=== PATIENT | female | born 1955 | race Caucasian/White ===

== ENCOUNTER 2021-08-25 10:30 | Inpatient (IN) | payer MEDICARE, SELFPAY ==
[2021-08-25] VITALS (23 sets, daily range): BP systolic 123–148; BP diastolic 59–73; PULSE 62–75; RESP 18–35; TEMP 36.6–36.8; O2SAT 91–96; BMI 46.2
--- NOTE | ~2021-08-25 | XR_ITS ---
EXAMINATION: XR chest 2V DATE: 08/25/2021 11:11 INDICATION: Shortness of breath. TECHNIQUE: Frontal and lateral views of the chest were obtained. COMPARISON: PET/CT 07/13/2017 FINDINGS: There are airspace opacities in right lower lung zone. No pleural effusion or pneumothorax. Cardiomegaly is noted. There is a large hiatal hernia. There are changes of anterior fusion procedur e in cervical spine. IMPRESSION: 1. Airspace opacities in right lower lung zone, consistent with atelectasis versus pneumonia. 2. Cardiomegaly. 3. Large hiatal hernia. Reviewed, dictated and finalized at location A. IMPRESSION: 1. Airspace opacities in right lower lung zone, consistent with atelectasis ad rosalba pneumonia. 2. Cardiomegaly. 3. Large hiatal hernia.
--- NOTE | 2021-08-25 10:35 | ECG_ITS ---
Measurements Intervals [place] Rate: 69 P: 80 FL: 193 QRS: -2 QRSD: 105 T: 10 QT: 416 QTc: 446 Interpretive Statements SINUS RHYTHM BASELINE ARTIFACT BORDERLINE ECG NO PREVIOUS ECG AVAILABLE FOR COMPARISON Electronically Signed On 08-25-2021 14:37:20 CDT by Isaac Faulkner M.D.
--- NOTE | 2021-08-25 10:43 | ED.GENADULT ---
HPI - General Adult General Chief complaint: Shortness of Breath/Dyspnea Stated complaint: SOB x 4 days Source: RN notes reviewed History of Present Illness HPI narrative: Patient presents emergency room from home for shortness of breath. Patient states she been feeling short of breath for the past 4 days. States she has been having a cough this been nonproductive. Patient states she has a history of COPD she denies any fevers or chills, chest pain abdominal pain nausea vomiting or any other symptoms. Patient states that she smokes approximately half a pack of cigarettes a day Related Data Allergies Allergy/AdvReac Type Severity Reaction Status Date / Time duloxetine [From Cymbalta] AdvReac Unknown Verified 08/25/21 11:26 Review of Systems Review of Systems: Gen.: Denies fevers or chills ENT: Denies congestion Respiratory: See HPI CV: Denies chest pain or palpitations GI: Denies abdominal pain nausea, emesis or diarrhea Musculoskeletal: Denies back pain or muscle pain Neuro: Denies numbness, tingling, weakness or focal weakness Skin: Denies rash Except as documented, all other systems reviewed and negative [facility] Past Medical History Medical History (Updated 08/25/21 @ 13:28 by Lenard Mosley DO) COPD (chronic obstructive pulmonary disease) Social History Social History (Updated 08/25/21 @ 10:44 by Lenard Mosley DO) Smoking status: Current every day smoker Exam Narrative: APPEARANCE: No acute distress, nontoxic, resting in bed EYES: EOMI HEENT: Normocephalic, atraumatic, OMM RESPIRATORY: No respiratory distress wheezing thought the bilateral upper lung flowers with decreased breath sounds in the bases no rhonchi CARDIOVASCULAR: Regular rate and rhythm without murmurs rubs or gallops. ABDOMINAL: Soft, nontender, nondistended, no rebound or guarding MUSCULOSKELETAl: Moves all extremities. No clubbing, cyanosis or edema. NEURO: Awake and alert. Following commands, speech normal, no focal deficits SKIN:: Warm, dry. No rashes lesions or abrasions PSYCHIATRIC: Normal affect/mood, Course Course Emergency Course: Patient was walking pulse ox in ED with oxygen down to 88% Discussed with Dr. Wilson agrees with admission at this time Discussed with patient and family results of workup and diagnosis. Discussed need for admission. Patient and family understand and agree to current treatment plan Vital Signs Vital signs: Vital Signs Temperature 98.3 F 08/25/21 10:31 Pulse Rate 69 08/25/21 10:31 Respiratory Rate 35 H 08/25/21 10:31 Blood Pressure 148/69 H 08/25/21 10:31 Pulse Oximetry 94 08/25/21 10:31 Oxygen Delivery Room Air 08/25/21 10:31 Temperature 98.3 F 08/25/21 10:31 Pulse Rate 62 08/25/21 11:55 Respiratory Rate 18 08/25/21 11:30 Blood Pressure 123/59 L 08/25/21 11:30 Pulse Oximetry 96 08/25/21 11:30 Oxygen Delivery Room Air 08/25/21 10:36 Medical Decision Making Vital Signs Vital Signs: Vital Signs Temperature 98.3 F 08/25/21 10:31 Pulse Rate 69 08/25/21 10:31 Respiratory Rate 35 H 08/25/21 10:31 Blood Pressure 148/69 H 08/25/21 10:31 Pulse Oximetry 94 08/25/21 10:31 Oxygen Delivery Room Air 08/25/21 10:31 Temperature 98.3 F 08/25/21 10:31 Pulse Rate 62 08/25/21 11:55 Respiratory Rate 18 08/25/21 11:30 Blood Pressure 123/59 L 08/25/21 11:30 Pulse Oximetry 96 08/25/21 11:30 Oxygen Delivery Room Air 08/25/21 10:36 Lab Data Result diagrams: 08/25/21 10:45 08/25/21 10:45 Labs: Lab Results 08/25/21 08/25/21 08/25/21 Range/Units 10:45 10:45 10:45 WBC 14.1 H (4.5-10.0) K/mm3 RBC 3.86 L (4.2-5.4) M/mm3 Hgb 9.1 L (12.0-15.0) g/dL Hct 31.9 L (37.0-47.0) % MCV 82.6 (80-100) fl MCH 23.6 L (26-34) pg MCHC 28.5 L (32-36) g/dl RDW 17.2 H (11.5-14.5) % Plt Count 226 (150-375) k/mm3 MPV 11.6 H (7.4-10.4) fl Immature Gran %
[2021-08-25 10:54] LABS: Basophils Percent Auto 0.2 % (0.2-1.2); Eosinophils Percent Auto 0.1 % (0-4.4); Hematocrit 31.9 % (37.0-47.0); Hemoglobin 9.1 g/dL (12.0-15.0); Immature Granulocyte Absolute 0.13 K/mm3 (0.00-0.031); Immature Granulocyte Percent A 0.9 % (0-0.5); Lymphocytes Absolute Auto 0.83 K/mm3 (0.9-3.2); Lymphocytes Percent Auto 5.9 % (18.3-44.2); Mean Corpuscular HGB Conc 28.5 g/dl (32-36); Mean Corpuscular Hemoglobin 23.6 pg (26-34); Mean Corpuscular Volume 82.6 fl (80-100); Mean Platelet Volume 11.6 fl (7.4-10.4); Monocytes Absolute Auto 1.4 K/mm3 (0.1-0.6); Monocytes Percent Auto 9.6 % (2.6-8.5); Neutrophils Absolute Auto 11.8 K/mm3 (1.3-6.7); Neutrophils Percent Auto 83.3 % (45.5-73.1); Platelet Count Result 226 k/mm3 (150-375); Red Blood Count 3.86 M/mm3 (4.2-5.4); Red Cell Distribution Width 17.2 % (11.5-14.5); White Blood Count 14.1 K/mm3 (4.5-10.0)
[2021-08-25 11:05] LABS: Alanine Aminotransferase 15 U/L (6-35); Albumin Level 3.4 g/dL (3.5-5.1); Alkaline Phosphatase 94 U/L (38-126); Anion Gap 3 mmol/L (8-16); Aspartate Amino Transferase 18 U/L (14-36); Bilirubin,Total 0.3 mg/dL (0.2-1.3); Blood Urea Nitrogen 10 mg/dL (7-17); Calcium 7.7 mg/dL (8.4-10.2); Carbon Dioxide 21 mmol/L (22-30); Chloride 110 mmol/L (98-107); Estimated CRCL calculation 104 ml/min; Estimated Glomerular Filt Rate > 60; Glucose 128 mg/dL (65-110); Potassium 3.6 mmol/L (3.4-5.0); Sodium 134 mmol/L (137-145)
[2021-08-25 11:09] LABS: INR 1.2; Prothrombin Time 14.9 Seconds (11.1-14.7)
[2021-08-25 11:10] LABS: Anisocytosis 1+ (NORMAL); Hypochromasia 2+ (NORMAL); Platelet Estimate Adequate (Adequate)
[2021-08-25 11:11] LABS: Partial Thromboplastin Time 31.9 SECONDS (22.3-36.8)
[2021-08-25 11:32] LABS: SARS-CoV-2 RNA PCR Negative
[2021-08-25] MEDS: methylPREDNISolone SOD SUCC 125 MG VIAL IV PUSH (11:47)
[2021-08-25] MEDS: ALBUTEROL SULFATE NEB 2.5 MG/3 ML INH 5 MG INHALATION ×3 (11:56→21:03)
[2021-08-25] MEDS: IPRATROPIUM BR 0.02% INH SOLN 0.5 MG/2.5 ML VIAL INHALATION ×3 (11:57→21:04)
--- NOTE | 2021-08-25 12:57 | PC.NURSE ---
patient desats to 88% while walking in the home
[2021-08-25 13:02] LABS: Lactic Acid Reflex 1.1 mmol/L (0.7-2.0)
--- NOTE | 2021-08-25 13:32 | PM.IMHP ---
H&P: HPI History of Present Illness Date/Time: 08/25/21 13:32 Chief Complaint: Shortness of breath Narrative: Patient is a 66-year-old female with a past medical history of COPD who presented to the ED with complaints shortness of breath and a nonproductive cough over the last 4 days.Patient stated that she has had increased wheezes and shortness of breath. Patient also stated that she developed a different cough over the last 3 days. She does have sputum production however it is very light and states that it is no different than any other cough that she has had. Sputum does produce a yellow thick sputum she has also complained about having chills and she thinks fevers. She also said that her swelling in her bilateral lower extremities has been worse lately. She denies any nausea, vomiting, diarrhea, constipation, visual changes, dizziness. She also stated that she has been having some headaches over the last couple days but that usually is controlled. She also stated that her eating has been a little different but she only eats she has 2. She also stated that she has chest pain and abdominal pain however she contributes that is cough. [facility]. Patient is currently being admitted to the hospital service as an observation patient for pneumonia Review of Systems Review of Systems: All systems reviewed & are unremarkable except as noted in HPI and below PMFSH Past Medical History Medical History Anxiety and depression Bipolar 1 disorder Carpal tunnel syndrome COPD (chronic obstructive pulmonary disease) Hyperlipemia Hypertension Hypothyroidism Rheumatoid arthritis Surgical History Surgical History H/O thyroidectomy H/O: hysterectomy History of tonsillectomy History of total left knee replacement Family History Family History Mother Hypertension COPD (chronic obstructive pulmonary disease) Lung cancer Father Hypertension COPD (chronic obstructive pulmonary disease) Lung cancer Grandparent Cerebrovascular accident maternal grandmother Son Diabetes mellitus Social History Social History Social History: Patient lives by herself and has 3 rescue dogs at home. She has 1 son his name is Adam who will be her surrogate if she can not make her own decisions. Patient stated that she is a half a pack smoker a day and quit 4 days ago and has been smoking for 14 years. Patient wishes to be a full code at this time. 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 Gender identity (if verbalized by the patient): Female Sexual Orientation (if Verbalized by the Patient): Straight or Heterosexual Spiritual care concerns: No Agree to blood products: Yes Meds Home Medications and Allergies Home Medications Medication Instructions Recorded Confirmed Type albuterol sulfate 90 mcg/actuation 2 inh inhalation QID PRN Shortness 08/25/21 08/25/21 History aerosol inhaler Of Breath Or Wheezing alendronate 70 mg tablet 1 tablet PO WEEKLY 08/25/21 08/25/21 History amlodipine 5 mg tablet 5 mg PO DAILY 08/25/21 08/25/21 History atorvastatin 20 mg tablet 20 mg PO DAILY 08/25/21 08/25/21 History bupropion HCl 200 mg tablet,12 hr 200 mg PO BID 08/25/21 08/25/21 History sustained-release citalopram 20 mg tablet 20 mg PO DAILY 08/25/21 08/25/21 History duloxetine 60 mg capsule,delayed 60 mg PO DAILY 08/25/21 08/25/21 History r
--- NOTE | 2021-08-25 15:09 | ADMGEN ---
This patient, Alisha Arguello, was admitted to 3 Medical Room 346-01. Patient/family oriented to hospital policies and general routines including ID bracelet, bed and alarms, visiting hours, pain management, procedures, bathroom and other care routines, personal items, smoking policy, room service/diet, and visiting hours. Information on how to activate the Rapid Response Team has been discussed. Patient/Family are encouraged to report perceived risks to care and to ask questions if they do not understand what they are told or what they should do.
[2021-08-25] MEDS: TOPIRAMATE 100 MG TABLET PO ×2 (16:48→20:31)
[2021-08-25] MEDS: methylPREDNISolone SOD SUCC 125 MG VIAL 60 MG IV PUSH (20:30)
[2021-08-25] MEDS: PANTOPRAZOLE 40 MG TABLET PO (20:30)
[2021-08-25] MEDS: risperiDONE 1 MG TABLET PO (20:30)
[2021-08-25] MEDS: buPROPion HCL SR (12HR) 100 MG TABCR 200 MG PO (20:30)
[2021-08-25] MEDS: rOPINIRole HCL 1 MG TABLET PO (20:31)
[2021-08-26] VITALS (12 sets, daily range): BP systolic 139–157; BP diastolic 58–68; PULSE 70–92; RESP 20–24; TEMP 36.6–36.8; O2SAT 90–94
--- NOTE | 2021-08-26 | ECHO_ITS ---
Patient Info Name: Alisha Arguello Age: 66 years : 1955 Gender: Female Ht: 62 in Wt: 252 lbs BSA: 2.31 m2 HR: 73 bpm BP: 139 / 58 mmHg Heart Rhythm: Sinus Rhythm Exam Date: 08/26/2021 2:37 PM Exam Location: [facility] Patient Status: Inpatient Admit Date: 08/26/2021 Staff Ordering Physician: Chris Rios Move Coordinator: Alessandro Roach RDCS, RT Attending Provider: Rocío Wilson MD Referring Physician: Gabriel KAYE; Exam Type: CA echo dop color flow w con Study Info Indications R06.02 - Shortness of breath Complete two-dimensional, color flow and Doppler transthoracic echocardiogram is performed with contrast to opacify the left ventricle and to improve the deliniation of the left ventricle endocardial borders. Summary 1. Left ventricular chamber dimension is mildly enlarged. 2. Left ventricular systolic function is normal, estimated at 60-65%. 3. There is mildly increased left ventricular wall thickness. 4. Left ventricular septal wall motion is abnormal with septal motion related to bundle branch block. 5. The left ventricular diastolic function is grade I diastolic dysfunction. 6. There is borderline mild aortic valve stenosis with a peak velocity of 224.49 cm/s, mean gradient of 9 mmHg, and aortic valve area of 2.0 cm2. 7. There is mild aortic valve regurgitation. 8. There is mild aortic valve calcification. 9. The aortic valve is not well visualized. 10. There is trace tricuspid valve regurgitation. 11. Moderate pulmonary hypertension, estimated pulmonary arterial systolic pressure is 46 mmHg. Left Ventricle Left ventricular chamber dimension is mildly enlarged. Left ventricular systolic function is normal, estimated at 60-65%. There is mildly increased left ventricular wall thickness. Left ventricular septal wall motion is abnormal with septal motion related to bundle branch block. The left ventricular diastolic function is grade I diastolic dysfunction. Right Ventricle Right ventricular chamber dimension is normal. Right ventricular systolic function is normal. Left Atria Left atrial chamber dimension is mildly enlarged. Right Atria Right atrial chamber dimension is mildly enlarged. Aortic Valve The aortic valve is not well visualized. There is borderline mild aortic valve stenosis with a peak velocity of 224.49 cm/s, mean gradient of 9 mmHg, and aortic valve area of 2.0 cm2. There is mild aortic valve regurgitation. There is mild aortic valve calcification. Pulmonic Valve The pulmonic valve is not well visualized. Mitral Valve The mitral valve has normal leaflets. There is no mitral valve regurgitation. The mitral valve annulus is mildly calcified. Tricuspid Valve The tricuspid valve leaflets are normal. There is trace tricuspid valve regurgitation. Moderate pulmonary hypertension, estimated pulmonary arterial systolic pressure is 46 mmHg. Pericardium/Pleural The pericardium appears not well visualized. There is no pericardial effusion. Inferior Vena Cava Normal inferior vena cava with >50% collapse upon inspiration consistent with normal right atrial pressure, 5 mmHg. Aorta The aortic root size at the sinus of Valsalva is normal. There is mild aortic atherosclerosis. Left Ventricular Outflow Tract Name Value Normal LVOT 2D
--- NOTE | 2021-08-26 02:27 | PCRCNOTE ---
0200 UPD treatment not given on 08/26 due to pt being on sleep apnea study. Next available administration is 0800.
[2021-08-26 05:37] LABS: Basophils Percent Auto 0.1 % (0.2-1.2); Hematocrit 30.5 % (37.0-47.0); Hemoglobin 8.9 g/dL (12.0-15.0); Immature Granulocyte Absolute 0.07 K/mm3 (0.00-0.031); Immature Granulocyte Percent A 0.7 % (0-0.5); Lymphocytes Absolute Auto 0.68 K/mm3 (0.9-3.2); Lymphocytes Percent Auto 6.7 % (18.3-44.2); Mean Corpuscular HGB Conc 29.2 g/dl (32-36); Mean Corpuscular Hemoglobin 23.5 pg (26-34); Mean Corpuscular Volume 80.7 fl (80-100); Mean Platelet Volume 10.5 fl (7.4-10.4); Monocytes Absolute Auto 0.6 K/mm3 (0.1-0.6); Monocytes Percent Auto 6.3 % (2.6-8.5); Neutrophils Absolute Auto 8.7 K/mm3 (1.3-6.7); Neutrophils Percent Auto 86.2 % (45.5-73.1); Platelet Count Result 217 k/mm3 (150-375); Red Blood Count 3.78 M/mm3 (4.2-5.4); Red Cell Distribution Width 17.2 % (11.5-14.5); White Blood Count 10.1 K/mm3 (4.5-10.0)
[2021-08-26] MEDS: methylPREDNISolone SOD SUCC 125 MG VIAL 60 MG IV PUSH (05:41)
[2021-08-26] MEDS: LEVOTHYROXINE SODIUM 100 MCG TABLET 400 MCG PO (05:41)
[2021-08-26] MEDS: TOPIRAMATE 100 MG TABLET PO ×3 (05:42→20:30)
[2021-08-26 05:53] LABS: Alanine Aminotransferase 14 U/L (6-35); Albumin Level 3.3 g/dL (3.5-5.1); Alkaline Phosphatase 92 U/L (38-126); Anion Gap 5 mmol/L (8-16); Aspartate Amino Transferase 14 U/L (14-36); Bilirubin,Total 0.1 mg/dL (0.2-1.3); Blood Urea Nitrogen 13 mg/dL (7-17); Calcium 7.9 mg/dL (8.4-10.2); Carbon Dioxide 23 mmol/L (22-30); Chloride 113 mmol/L (98-107); Estimated CRCL calculation 111 ml/min; Estimated Glomerular Filt Rate > 60; Glucose 143 mg/dL (65-110); Potassium 3.5 mmol/L (3.4-5.0); Sodium 141 mmol/L (137-145)
[2021-08-26] MEDS: IPRATROPIUM BR 0.02% INH SOLN 0.5 MG/2.5 ML VIAL INHALATION ×3 (08:03→21:18)
[2021-08-26] MEDS: ALBUTEROL SULFATE NEB 2.5 MG/3 ML INH 5 MG INHALATION ×3 (08:03→21:18)
[2021-08-26 08:18] LABS: NT Pro B Type Natriuretic Pept 948 pg/mL (5-100)
[2021-08-26] MEDS: CITALOPRAM HYDROBROMIDE 20 MG TABLET PO (08:43)
[2021-08-26] MEDS: ATORVASTATIN 20 MG TABLET PO (08:43)
[2021-08-26] MEDS: PANTOPRAZOLE 40 MG TABLET PO ×2 (08:43→20:29)
[2021-08-26] MEDS: NICOTINE (*PBKC) 21 MG PATCH 1 PATCH TRANSDERM (08:43)
[2021-08-26] MEDS: amLODIPine BESYLATE 5 MG TABLET PO (08:43)
[2021-08-26] MEDS: METOPROLOL TARTRATE 25 MG TABLET PO (08:43)
[2021-08-26] MEDS: DULoxetine HCL 60 MG CAPSULE.DR PO (08:44)
[2021-08-26] MEDS: ENOXAPARIN 40 MG/0.4 ML SYRINGE SUB-Q (08:44)
[2021-08-26] MEDS: buPROPion HCL SR (12HR) 100 MG TABCR 200 MG PO ×2 (08:44→20:29)
[2021-08-26 08:48] LABS: Thyroid Stimulating Hormone Reflex < 0.015 uIU/mL (0.465-4.68)
--- NOTE | 2021-08-26 09:45 | P.PNIM_ITS ---
Progress Note: A&P Assessment and Plan (1) Community acquired pneumonia: Code(s): J18.9 - Pneumonia, unspecified organism Status: Acute Assessment and Plan: * Chest xray shows opacities in the right lower lung consistent with atelectasis or PNA * WBC Trending down, currently 10.1 * No fever noted * Continue ceftriaxone and azithromycin day 2 * Change to Augmentin and get one more dose of azithromycin * Sputum culture ordered * Blood cultures pending * Legionella and pneumococcal pending * Trend respiratory status (2) Acute exacerbation of chronic obstructive airways disease: Code(s): J44.1 - Chronic obstructive pulmonary disease with (acute) exacerbation Status: Acute Assessment and Plan: * Reports shortness of breath and increased wheezes * Chest x-ray indicates pneumonia * Looks to be in acute exacerbation for COPD at this time * Ceftriaxone and azithromycin on board * change IV steroids to PO prednisone * WBC currently trending down at 10.1 * Sputum culture ordered (3) CHF (congestive heart failure): Code(s): I50.9 - Heart failure, unspecified Status: Acute Assessment and Plan: * Don't think this is acute exacerbation * Seems to be a diastolic heart failure * Trend I&O * Daily weights * Trend urine output * Echo ordered * Lasix 40mg IV x 1 dose * BNP elevated at 948 (4) Hypothyroidism: Code(s): E03.9 - Hypothyroidism, unspecified Status: Acute Assessment and Plan: * Obtain a TSH with reflex * Continue home levothyroxine (5) Hypertension: Code(s): I10 - Essential (primary) hypertension Status: Acute Assessment and Plan: * Current blood pressure 157/68 * Continue home amlodipine 5 mg daily, metoprolol 25 mg daily * Trend blood pressure * Adjust therapy as indicated (6) Hyperlipemia: Code(s): E78.5 - Hyperlipidemia, unspecified Status: Acute Assessment and Plan: * Continue home atorvastatin 20 mg p.o. daily (7) Rheumatoid arthritis: Code(s): M06.9 - Rheumatoid arthritis, unspecified Status: Acute Assessment and Plan: * History of RA * Continue home medications Time Spent With Patient Time with patient: Greater than 35 minutes Subjective Date/time seen: 08/26/21 09:45 Interval history: 08/26/2145 patient stated that she is feeling pretty good today. Her cough is better and her breathing is better. She did state that she still getting really short of breath especially when she walks to the bathroom and back. She denies any chest pain, nausea, vomiting, diarrhea, constipation. She did state that she is feeling weak specially with short trips. Headache is better today as well. Still awaiting labs. White blood cell count did go down to 10.1. Patient appears better. Transition to oral Augmentin, and per ID pharmacist give one more dose of Azithromycin 08/25/21? 13:32 Patient is a 66-year-old female with a past medical history of COPD who presented to the ED with complaints shortness of breath and a nonproductive cough over the last 4 days.Patient stated that she has had increased wheezes and shortness of breath.? Patient also stated that she developed a different cough over the last 3 days.? She does have sputum production however it is very light an
--- NOTE | 2021-08-26 09:45 | PM.IMPN ---
Progress Note: A&P Assessment and Plan (1) Community acquired pneumonia: Code(s): J18.9 - Pneumonia, unspecified organism Status: Acute Assessment and Plan: Chest xray shows opacities in the right lower lung consistent with atelectasis or PNA WBC Trending down, currently 10.1 No fever noted Continue ceftriaxone and azithromycin day 2 Change to Augmentin and get one more dose of azithromycin Sputum culture ordered Blood cultures pending Legionella and pneumococcal pending Trend respiratory status (2) Acute exacerbation of chronic obstructive airways disease: Code(s): J44.1 - Chronic obstructive pulmonary disease with (acute) exacerbation Status: Acute Assessment and Plan: Reports shortness of breath and increased wheezes Chest x-ray indicates pneumonia Looks to be in acute exacerbation for COPD at this time Ceftriaxone and azithromycin on board change IV steroids to PO prednisone WBC currently trending down at 10.1 Sputum culture ordered (3) CHF (congestive heart failure): Code(s): I50.9 - Heart failure, unspecified Status: Acute Assessment and Plan: Don't think this is acute exacerbation Seems to be a diastolic heart failure Trend I&O Daily weights Trend urine output Echo ordered Lasix 40mg IV x 1 dose BNP elevated at 948 (4) Hypothyroidism: Code(s): E03.9 - Hypothyroidism, unspecified Status: Acute Assessment and Plan: Obtain a TSH with reflex Continue home levothyroxine (5) Hypertension: Code(s): I10 - Essential (primary) hypertension Status: Acute Assessment and Plan: Current blood pressure 157/68 Continue home amlodipine 5 mg daily, metoprolol 25 mg daily Trend blood pressure Adjust therapy as indicated (6) Hyperlipemia: Code(s): E78.5 - Hyperlipidemia, unspecified Status: Acute Assessment and Plan: Continue home atorvastatin 20 mg p.o. daily (7) Rheumatoid arthritis: Code(s): M06.9 - Rheumatoid arthritis, unspecified Status: Acute Assessment and Plan: History of RA Continue home medications Time Spent With Patient Time with patient: Greater than 35 minutes Subjective Date/time seen: 08/26/21 09:45 Interval history: 08/26/21 0945 patient stated that she is feeling pretty good today. Her cough is better and her breathing is better. She did state that she still getting really short of breath especially when she walks to the bathroom and back. She denies any chest pain, nausea, vomiting, diarrhea, constipation. She did state that she is feeling weak specially with short trips. Headache is better today as well. Still awaiting labs. White blood cell count did go down to 10.1. Patient appears better. Transition to oral Augmentin, and per ID pharmacist give one more dose of Azithromycin 08/25/21? 13:32 Patient is a 66-year-old female with a past medical history of COPD who presented to the ED with complaints shortness of breath and a nonproductive cough over the last 4 days.Patient stated that she has had increased wheezes and shortness of breath.? Patient also stated that she developed a different cough over the last 3 days.? She does have sputum production however it is very light and states that it is no different than any other cough that she has had.? Sputum does produce a yellow thick sputum she has also complained about having chills and she thinks fevers.? She also said that her swelling in her bilateral lower extremities has been worse lately.? She denies any nausea, vomiting, diarrhea, constipation, visual changes, dizziness.? She also stated that she has been having some headaches over the last couple days but that usually is controlled.? She also stated that her eating has been a little different but she only eats she has 2.? She also stated th
[2021-08-26 10:05] LABS: Free T4 Free Thyroxine Reflex 4.16 ng/dL (0.78-2.19)
[2021-08-26] MEDS: FUROSEMIDE INJ 40 MG/4 ML VIAL IV PUSH (12:48)
[2021-08-26] MEDS: PERFLUTREN LIPID MICROSPHERES 1.5 ML VIAL DILUTED TO 10 ML TOTAL VOLUME IV PUSH (14:38)
--- NOTE | 2021-08-26 14:38 | IVDEFINITY ---
Prior to administration of IV Definity the patient was educated on the risks and benefits of the imaging enhancing agent including potential adverse side effects. The patient verbalized understanding. Allergies were verified. No exclusion criteria were identified and at least one of the following inclusion criteria were met: 1) physician request, 2) patient technically difficult to image (per the [place] [employer] guidelines of two or more segments not discernable within the apical view), or 3) questionable left ventricular function. ?
[2021-08-26] MEDS: risperiDONE 1 MG TABLET PO (20:29)
[2021-08-26] MEDS: rOPINIRole HCL 1 MG TABLET PO (20:29)
[2021-08-27] VITALS (9 sets, daily range): BP systolic 144; BP diastolic 58; PULSE 75–85; RESP 20–24; TEMP 36.6; O2SAT 91–94
[2021-08-27] MEDS: ALBUTEROL SULFATE NEB 2.5 MG/3 ML INH 5 MG INHALATION ×3 (01:54→14:39)
[2021-08-27] MEDS: IPRATROPIUM BR 0.02% INH SOLN 0.5 MG/2.5 ML VIAL INHALATION ×3 (01:54→14:39)
[2021-08-27 05:30] LABS: Basophils Percent Auto 0.3 % (0.2-1.2); Eosinophils Percent Auto 0.1 % (0-4.4); Hematocrit 29.6 % (37.0-47.0); Hemoglobin 8.5 g/dL (12.0-15.0); Immature Granulocyte Absolute 0.05 K/mm3 (0.00-0.031); Immature Granulocyte Percent A 0.4 % (0-0.5); Lymphocytes Absolute Auto 2.26 K/mm3 (0.9-3.2); Lymphocytes Percent Auto 19.3 % (18.3-44.2); Mean Corpuscular HGB Conc 28.7 g/dl (32-36); Mean Corpuscular Hemoglobin 23.6 pg (26-34); Mean Corpuscular Volume 82.2 fl (80-100); Mean Platelet Volume 10.6 fl (7.4-10.4); Monocytes Absolute Auto 1.2 K/mm3 (0.1-0.6); Monocytes Percent Auto 10.2 % (2.6-8.5); Neutrophils Absolute Auto 8.2 K/mm3 (1.3-6.7); Neutrophils Percent Auto 69.7 % (45.5-73.1); Platelet Count Result 247 k/mm3 (150-375); Red Cell Distribution Width 17.2 % (11.5-14.5); White Blood Count 11.7 K/mm3 (4.5-10.0)
[2021-08-27] MEDS: LEVOTHYROXINE SODIUM 100 MCG TABLET 400 MCG PO (05:38)
[2021-08-27] MEDS: TOPIRAMATE 100 MG TABLET PO ×2 (05:38→13:13)
[2021-08-27 05:47] LABS: Alanine Aminotransferase 13 U/L (6-35); Albumin Level 2.8 g/dL (3.5-5.1); Alkaline Phosphatase 75 U/L (38-126); Anion Gap 3 mmol/L (8-16); Aspartate Amino Transferase 14 U/L (14-36); Bilirubin,Total 0.2 mg/dL (0.2-1.3); Blood Urea Nitrogen 21 mg/dL (7-17); Calcium 7.5 mg/dL (8.4-10.2); Carbon Dioxide 26 mmol/L (22-30); Chloride 111 mmol/L (98-107); Estimated CRCL calculation 82 ml/min; Estimated Glomerular Filt Rate > 60; Glucose 91 mg/dL (65-110); Magnesium 2.2 mg/dL (1.6-2.3); Potassium 3.1 mmol/L (3.4-5.0); Sodium 140 mmol/L (137-145)
[2021-08-27] MEDS: DULoxetine HCL 60 MG CAPSULE.DR PO (08:28)
[2021-08-27] MEDS: predniSONE 20 MG TABLET 40 MG PO (08:28)
[2021-08-27] MEDS: ATORVASTATIN 20 MG TABLET PO (08:28)
[2021-08-27] MEDS: METOPROLOL TARTRATE 25 MG TABLET PO (08:28)
[2021-08-27] MEDS: buPROPion HCL SR (12HR) 100 MG TABCR 200 MG PO (08:28)
[2021-08-27] MEDS: PANTOPRAZOLE 40 MG TABLET PO (08:28)
[2021-08-27] MEDS: CITALOPRAM HYDROBROMIDE 20 MG TABLET PO (08:29)
[2021-08-27] MEDS: NICOTINE (*PBKC) 21 MG PATCH 1 PATCH TRANSDERM (08:29)
[2021-08-27] MEDS: ENOXAPARIN 40 MG/0.4 ML SYRINGE SUB-Q (08:29)
[2021-08-27] MEDS: amLODIPine BESYLATE 5 MG TABLET PO (08:29)
--- NOTE | 2021-08-27 09:15 | P.DS_ITS ---
DS: Admitting Diagnosis Discharge Date 08/27/21914 Admitting Diagnosis PNA/COPD exacerbation DS: Discharge Diagnosis Discharge Diagnosis (1) Community acquired pneumonia: Code(s): J18.9 - Pneumonia, unspecified organism Status: Acute Assessment and Plan: * Chest xray shows opacities in the right lower lung consistent with atelectasis or PNA * WBC Trending down, currently 11.7 * No fever noted * Continue ceftriaxone and azithromycin day 3 * Change to Augmentin and get one more dose of azithromycin * Sputum culture continues to pend * Blood cultures NGTD * Legionella and pneumococcal pending * Trend respiratory status (2) Acute exacerbation of chronic obstructive airways disease: Code(s): J44.1 - Chronic obstructive pulmonary disease with (acute) exacerbation Status: Acute Assessment and Plan: * Reports shortness of breath and increased wheezes * Chest x-ray indicates pneumonia * Looks to be in acute exacerbation for COPD at this time * Changed to Augmentin for 5 days * Plus will get one more dose of IV azithromycin * change IV steroids to PO prednisone * WBC currently 11.7 * Sputum culture pending * Talked to the patient about needing a pulmonology consult for COPD medications, Spoke to Dr. Milton's office about appointment, unable to make appointment for the patient, patient instructed to call to make her own appointment (3) CHF (congestive heart failure): Code(s): I50.9 - Heart failure, unspecified Status: Acute Assessment and Plan: * Don't think this is acute exacerbation * Seems to be a diastolic heart failure * Trend I&O * Daily weights * Trend urine output * Echo ordered * Lasix 40mg IV x 1 dose * BNP elevated at 948 (4) Hypothyroidism: Code(s): E03.9 - Hypothyroidism, unspecified Status: Acute Assessment and Plan: * Obtain a TSH <0.015, T4 4.16 * Continue home levothyroxine (5) Hypertension: Code(s): I10 - Essential (primary) hypertension Status: Acute Assessment and Plan: * Current blood pressure 144/58 * Continue home amlodipine 5 mg daily, metoprolol 25 mg daily * Trend blood pressure * Adjust therapy as indicated (6) Hyperlipemia: Code(s): E78.5 - Hyperlipidemia, unspecified Status: Acute Assessment and Plan: * Continue home atorvastatin 20 mg p.o. daily (7) Rheumatoid arthritis: Code(s): M06.9 - Rheumatoid arthritis, unspecified Status: Acute Assessment and Plan: * History of RA * Continue home medications (8) Anemia: Code(s): D64.9 - Anemia, unspecified Status: Acute Assessment and Plan: * Iron studies show low iron * Ferrous sulfate added 325mg bid * Anemia related to iron deficient * she will need follow up labs probably in a week * Patient stated that she has not taken iron recently due to her physician leaving * Will have her follow up outpatient with Dr. Bullock DS: Summary Hospital Course Hospital Course: Patient is a 66-year-old female with a past medical history of anxiety and depression, bipolar, hyperlipidemia, hypertension, COPD who presented to the ED for shortness of breath x4 days. Patient also developed a cough over the last 3 days. She was having
--- NOTE | 2021-08-27 09:15 | PM.DS ---
DS: Admitting Diagnosis Discharge Date 08/27/2115 Admitting Diagnosis PNA/COPD exacerbation DS: Discharge Diagnosis Discharge Diagnosis (1) Community acquired pneumonia: Code(s): J18.9 - Pneumonia, unspecified organism Status: Acute Assessment and Plan: Chest xray shows opacities in the right lower lung consistent with atelectasis or PNA WBC Trending down, currently 11.7 No fever noted Continue ceftriaxone and azithromycin day 3 Change to Augmentin and get one more dose of azithromycin Sputum culture continues to pend Blood cultures NGTD Legionella and pneumococcal pending Trend respiratory status (2) Acute exacerbation of chronic obstructive airways disease: Code(s): J44.1 - Chronic obstructive pulmonary disease with (acute) exacerbation Status: Acute Assessment and Plan: Reports shortness of breath and increased wheezes Chest x-ray indicates pneumonia Looks to be in acute exacerbation for COPD at this time Changed to Augmentin for 5 days Plus will get one more dose of IV azithromycin change IV steroids to PO prednisone WBC currently 11.7 Sputum culture pending Talked to the patient about needing a pulmonology consult for COPD medications, Spoke to Dr. Milton's office about appointment, unable to make appointment for the patient, patient instructed to call to make her own appointment (3) CHF (congestive heart failure): Code(s): I50.9 - Heart failure, unspecified Status: Acute Assessment and Plan: Don't think this is acute exacerbation Seems to be a diastolic heart failure Trend I&O Daily weights Trend urine output Echo ordered Lasix 40mg IV x 1 dose BNP elevated at 948 (4) Hypothyroidism: Code(s): E03.9 - Hypothyroidism, unspecified Status: Acute Assessment and Plan: Obtain a TSH <0.015, T4 4.16 Continue home levothyroxine (5) Hypertension: Code(s): I10 - Essential (primary) hypertension Status: Acute Assessment and Plan: Current blood pressure 144/58 Continue home amlodipine 5 mg daily, metoprolol 25 mg daily Trend blood pressure Adjust therapy as indicated (6) Hyperlipemia: Code(s): E78.5 - Hyperlipidemia, unspecified Status: Acute Assessment and Plan: Continue home atorvastatin 20 mg p.o. daily (7) Rheumatoid arthritis: Code(s): M06.9 - Rheumatoid arthritis, unspecified Status: Acute Assessment and Plan: History of RA Continue home medications (8) Anemia: Code(s): D64.9 - Anemia, unspecified Status: Acute Assessment and Plan: Iron studies show low iron Ferrous sulfate added 325mg bid Anemia related to iron deficient she will need follow up labs probably in a week Patient stated that she has not taken iron recently due to her physician leaving Will have her follow up outpatient with Dr. Bullock DS: Summary Hospital Course Hospital Course: Patient is a 66-year-old female with a past medical history of anxiety and depression, bipolar, hyperlipidemia, hypertension, COPD who presented to the ED for shortness of breath x4 days. Patient also developed a cough over the last 3 days. She was having increased sputum and wheezes along with shortness of breath. Patient has been diagnosed with COPD however is currently just using albuterol inhaler. Chest x-ray did indicate opacities in the right lower lobe. Patient was started on IV ceftriaxone and azithromycin and was changed to p.o. Augmentin. Sputum culture was ordered and pending. Blood cultures are showing no growth to date. Legionella and pneumococcal or also continue to [place]. Patient was also started on IV steroids which have been converted to p.o. prednisone for COPD exacerbation. Echo was performed and showed an EF of 60-65% with grade 1 diastolic dysfunction. B
[2021-08-27 09:27] LABS: Lactate Dehydrogenase 390 U/L (313-618)
[2021-08-27 09:33] LABS: Iron < 10 ug/dL (37-170)
[2021-08-27 09:38] LABS: Transferrin 175 mg/dL (206-381)
[2021-08-27 10:36] LABS: Percent Iron Saturation < 4 % (20-50)
[2021-08-27 10:37] LABS: Folic Acid 6.6 ng/mL (2.76->20); Vitamin B12 > 1000.0 pg/mL (239-931)
[2021-08-27] MEDS: guaiFENesin 600 MG/DEXTROMETHORPHAN 30 MG SR TAB 12 HR 1 TAB PO (11:46)
[2021-08-27] MEDS: POTASSIUM CHLORIDE 20 MEQ TABLET 40 MEQ PO (11:46)
[2021-08-27] MEDS: AMOXICILLIN/CLAVULANATE K 875-125 MG TAB 1 TABLET PO (12:06)
[2021-08-27] MEDS: FERROUS SULFATE 324 MG TABLET PO (15:29)
[2021-08-27] MEDS: IRON SUCROSE COMPLEX 100 MG in SODIUM CHLORIDE 0.9% IV 50 ML 220 MG IVPB (15:39)
[2021-08-27 16:03] LABS: Legionella pneumophila Ag Ur Not Detected (Not Detected)
[2021-08-29 11:31] LABS: Pneumococcal Antigen Urine Not Detected (Not Detected)
== END 2021-08-27 16:30 | disposition home or self-care (01) | DRG 190 ==
LOC: ANHED 13:28 → ANH3MED 13:56
PROVIDERS: Admitting Provider Family Medicine; Emergency Provider Emergency Medicine; PCP Family Medicine Sports Medicine; Visit Provider Nurse Practitioner
DX: J44.0 Chronic obstructive pulmonary disease with (acute) lower respiratory infection (principal); J18.9 Pneumonia, unspecified organism; Z68.42 Body mass index [BMI] 45.0-49.9, adult; I50.30 Unspecified diastolic (congestive) heart failure; J44.1 Chronic obstructive pulmonary disease with (acute) exacerbation; I11.0 Hypertensive heart disease with heart failure; Z20.822 Contact with and (suspected) exposure to COVID-19; E03.9 Hypothyroidism, unspecified; E78.5 Hyperlipidemia, unspecified; M06.9 Rheumatoid arthritis, unspecified; D50.9 Iron deficiency anemia, unspecified; F17.210 Nicotine dependence, cigarettes, uncomplicated; F31.9 Bipolar disorder, unspecified; Z96.652 Presence of left artificial knee joint; Z90.710 Acquired absence of both cervix and uterus; E66.9 Obesity, unspecified
CPT/HCPCS: 36415; 71046; 80053; 82607; 82728; 82746; 83540; 83550; 83605; 83615; 83735; 83880; 84439; 84443; 84466; 85025; 85610; 85730; 87040; 87070; 87205; 87449; 87899; 93005; 94640; 94762; 96365; 96366; 96367; 96372; 96375; 96376; 99285; A9270; C8929; C9803; G0378; J0456; J0696; J1650; J1756; J1940; J2930; J7512; Q9957; U0003; U0005

== ENCOUNTER → 2021-09-18 09:53 | Outpatient (CLI) | payer MEDICARE, SELFPAY ==
--- NOTE | ~2021-09-18 | XR_ITS ---
XR sacrum coccyx min 2V DATE: 09/18/2021 10:35 INDICATION: Overactive bladder TECHNIQUE: AP, angled AP and lateral views of sacrum and coccyx COMPARISON: None FINDINGS: There is a right-sided battery pack with neurotransmitter lead through the upper right sacr al neural foramen. Osteopenia. The pubic symphysis and sacroiliac joints are intact. No pelvic fracture or bone destruction. There is mild bilateral hip osteoarthritis. There is severe degenerative disc disease and apophyseal joint degenerative change at the lower lumba r and lumbosacral spine. IMPRESSION: Severe degenerative change of lower lumbar spine Osteopenia Right lower back battery pack with right upper sacral neurotransmitter lead Reviewed, dictated and finalized at location A.
== END ==
PROVIDERS: PCP Family Medicine Sports Medicine; Visit Provider Nurse Practitioner Family
DX: N32.81 Overactive bladder (principal); M51.36 Other intervertebral disc degeneration, lumbar region; M85.88 Other specified disorders of bone density and structure, other site
CPT/HCPCS: 72220

== ENCOUNTER 2024-05-01 02:51 | Day surgery (SDC) | payer MEDICARE, SELFPAY ==
[2024-04-21 13:31] VITALS: BMI 46.5
--- NOTE | 2024-04-21 14:07 | PC.NURSE ---
Addendum entered by Odalys Wright RN 04/24/24 13:00: PATIENT CALLED AND REMINDED TO HOLD ASPIRIN 7 DAYS PRE-OP PER DR MCNULTY, SHE STATES OFFICE HAD INSTRUCTED HER TO HOLD IT. INSTR TO TAKE NO MORE ASPIRIN PRIOR TO SURGERY, SHE RELAYS UNDERSTANDING. Original Note: Report to the Outpatient Waiting Room, entrance under the green pavilion located off [facility], at time ___9:15AM____ on date ___05/01/24____. Planned Procedure Time: ___11:15AM .? Time changes happen often and if your time is changed the preop area will call you the afternoon before. - You and your visitor will be asked to self-screen and do not enter if you have any COVID symptoms. Please call surgeon if you need to reschedule. - A mask is optional within the hospital at this time. Patients may have clear liquids (water, carbonated beverages, clear teas, apple juice) until 3 hours prior to surgery (8:15AM) with a maximum of 20 ounces. - No food from midnight until time of surgery and no smoking, or chewing tobacco (or any form of nicotine). No chewing gum, candy or mints. Take only the following medications with a SIP of water on the morning of surgery: __AMLODIPINE, BUPROPION, CITALOPRAM, DULOXETINE, LEVOTHYROXINE, METOPROLOL, PREDNISONE. USE ALBUTEROL INHALER NEEDED. DO NOT STOP ANY OF YOUR OTHER PRESCRIPTION MEDICATIONS PRIOR TO SURGERY EXCEPT THE FOLLOWING Hold all vitamins and supplements for 3 days per anesthesiologist. Medications to discontinue per physician NONE Date to take last dose Please no make-up, nail senegalese, hairspray, perfume, deodorant, or body powder the day of surgery.? No jewelry (including any body piercings) or valuables the day of surgery, leave them at home.? Please take a shower or bath the night before, or the morning of, surgery with an antibacterial soap.? Wear comfortable, loose fitting clothing.? Children are encouraged to wear pajamas. - Jewelry must be removed prior to entering the operating room.? Rings and piercings that are not removed may be cut off. - The hospital will not accept responsibility for valuables.? - Please leave all valuables, including medications, at home the day of surgery. If you are going home after surgery, a licensed transit mixer driver must drive you home.? - NO public transportation without another adult if you receive anesthesia. - We recommend that an adult stay with you for 24 hours following discharge. - We also recommend that you do not drive, make important decision, drink alcoholic beverages, or take any drugs that were not prescribed by your health care provider for at least 24 hours after your discharge time. For Pediatric surgeries, we recommend two adults accompany the child home. Follow any additional instructions given to you from your surgeon. Telephone instructions given to ____PATIENT and asked if any additional questions and then verbalized understanding. Patient advised to call surgeon office or pre surgery nurse liaison [phone] if any additional questions.
--- NOTE | 2024-04-28 10:09 | PM.IMHP ---
H&P: HPI History of Present Illness Date/Time: 04/28/24 10:09 Chief Complaint: Fecal and urinary incontinence Narrative: Fecal and urinary incontinence. InterStim device in place. Battery is at low. Last placed in 2021. Here for removal and replacement of InterStim system Review of Systems Review of Systems: All systems reviewed & are unremarkable except as noted in HPI and below PMFSH Past Medical History Medical History Rheumatoid arthritis Carpal tunnel syndrome Anxiety and depression Bipolar 1 disorder Hyperlipemia Hypertension Hypothyroidism COPD (chronic obstructive pulmonary disease) Surgical History Surgical History History of total left knee replacement History of tonsillectomy H/O: hysterectomy H/O thyroidectomy Family History Family History Mother Hypertension COPD (chronic obstructive pulmonary disease) Lung cancer Father Hypertension COPD (chronic obstructive pulmonary disease) Lung cancer Grandparent Cerebrovascular accident maternal grandmother Son Diabetes mellitus Social History Social History Social History: Patient lives by herself and has 3 rescue dogs at home. She has 1 son his name is Adam who will be her surrogate if she can not make her own decisions. Patient stated that she is a half a pack smoker a day and quit 4 days ago and has been smoking for 14 years. Patient wishes to be a full code at this time. 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 Gender identity (if verbalized by the patient): Female Sexual Orientation (if Verbalized by the Patient): Straight or Heterosexual Spiritual care concerns: No Agree to blood products: Yes Meds Home Medications and Allergies Home Medications ?Medication ?Instructions ?Recorded ?Confirmed ?Type albuterol sulfate 90 mcg/actuation 2 inh inhalation QID PRN Shortness 08/25/21 04/21/24 History aerosol inhaler Of Breath Or Wheezing alendronate 70 mg tablet 1 tablet PO WEEKLY 08/25/21 04/21/24 History amlodipine 5 mg tablet 5 mg PO DAILY 08/25/21 04/21/24 History atorvastatin 20 mg tablet 20 mg PO DAILY 08/25/21 04/21/24 History bupropion HCl 200 mg tablet,12 hr 200 mg PO BID 08/25/21 04/21/24 History sustained-release citalopram 20 mg tablet 20 mg PO DAILY 08/25/21 04/21/24 History duloxetine 60 mg capsule,delayed 60 mg PO DAILY 08/25/21 04/21/24 History release etanercept 50 mg/mL (1 mL) 1 ea subcut WEEKLY 08/25/21 04/21/24 History subcutaneous pen injector (Enbrel SureClick) leflunomide 20 mg tablet 20 mg PO DAILY 08/25/21 04/21/24 History metoprolol tartrate 25 mg tablet 25 mg PO DAILY 08/25/21 04/21/24 History omeprazole 40 mg capsule,delayed 40 mg PO DAILY 08/25/21 04/21/24 History release risperidone 1 mg tablet 1 mg PO HS 08/25/21 04/21/24 History ropinirole 1 mg tablet 1 mg PO HS 08/25/21 04/21/24 History topiramate 100 mg tablet 100 mg PO TID 08/25/21 04/21/24 History dextromethorphan-guaifenesin 30 1 tab PO Q12HR #30 tabs 08/27/21 04/21/24 Rx mg-600 mg tablet extended [id number] hr (Mucinex DM) aspirin 81 mg tablet,delayed 81 mg PO DAILY 04/21/24 04/21/24 History release (Adult Aspirin Regimen) levothyroxine 150 mcg tablet 150 mcg PO QAM 04/21/24 04/21/24 History prednisone 5 mg tablet 5 mg PO DAILY 04/21/24 04/21/24 History Allergies Allergy/AdvReac Type Severity Reaction Status Date / Time montelukast Allergy Other Verified 04/21/24 13:21 Exam Narrative: No acute distress Alert orient x3 Assessment and Plan Assessment and plan (1) Urge incontinence: Code(s): N39.41 - Urge incontinence Status: Acute (2) Fecal incontinence not due to organic disease: Code(s): F98.1 - Encopresis not due to a substance or known physiological condition Status: Acute Plan Remove and replace InterStim system
--- NOTE | ~2024-05-01 | XR_ITS ---
EXAMINATION: XR sacrum coccyx min 2V DATE: 05/01/2024 12:19 INDICATION: Neurostimulator implant. TECHNIQUE: 3 views of the sacrum and coccyx were obtained. COMPARISON: Sacrum and coccyx radiographs 09/18/2021 FINDINGS: There is 7 mm anterolisthesis of L4 on L5. There is severe lumbar spondylosis. There is an electrode with tip in the right S3 neural foramen. IMPRESSION: 1. Electrode tip in the right S3 neural foramen. Reviewed, dictated and finalized at location A. NE EDUCATION MANAGER
--- NOTE | ~2024-05-01 | XR_ITS ---
INTRAOPERATIVE FLUOROSCOPY: CLINICAL HISTORY: 68 years old Female; REMOVAL AND REPLACEMENT INTERSTIM IMPLANT PROCEDURE COMMENTS: Limited intraoperative fluoroscopy of the spine was performed. CUMULATIVE DOSE: 99.5 mGy FLUOROSCOPY TIME: 92 seconds FINDINGS/IMPRESSION: Please refer to operative note for further details. Reviewed, dictated and finalized at location A. BORER
--- OUTSIDE RECORDS SUMMARY | 2024-05-01 02:54 | XMS_ITS | Continuity of Care Document ---
Author Organization [facility] Address [address] [place] [address] Phone Care Team Providers Care Cook [place] Name Role Phone Harris OD, Jeremias Unavailable [...] Diagnoses Date Provider Providers Copied on Encounter [facility], [address], [place], [place], [id number], [place] tel:[phone] SEC [facility] No Information 0-201 0 Harris OD Jeremias. [address] , [address], [place], [address], [place]. tel:[phone] [facility], [address] [place] [address] [address], [place], [place], [address], [place] tel:[phone] [facility] No Information Mar-2 5-200 9 Harris OD Jeremias. [facility] , [address], [place], [place], [facility], [place]. tel:[phone] Office/outpat ient Visit, Est [facility], [address] [place] [address] [address], [place], [place], [address], [place] tel:[phone] [facility] No Information Sep-1 0-200 8 Harris OD Jeremias. [address] [facility] , [address], [place], [place], [facility], [place]. tel:[phone] [facility], [address] [place] [address] [address], [place], [place], [address], [place] tel:[phone] [facility] No Information Mar-1 9-200 8 Harris OD Jeremias. [facility] , [address], [place], [place], [facility], [place]. tel:[phone] Referring Provider: Rajan Holman, [address] [place], [place] [address]ate Center [address], [place], [place], [facility]. tel:[phone] [facility], [address] [place] [address] [address], [place], [place], [id number], [place] tel:[phone] [facility] No Information Mar-0 5-200 8 Candelaria Tolentino. [facility] , [address], [place], [address], [place]. tel:[phone] [facility], [address] [place] [address] [address], [place], [place], [address], [place] tel:[phone] [facility] No Information Mar-0 4-200 8 Candelaria Tolentino. [address] [place], [place] [address]ate Center , [address], [place], [facility], [place]. tel:[phone] [facility], [address], [place], [place], [address], [place] tel:[phone] [facility] [place] No Information 8 Candelaria Tolentino. [address] [place], [place] [address]ate Center , [address], [place], [facility], [place]. tel:[phone] Referring Provider: Rajan Holman, [facility] [address], [place], [facility]. tel:[phone] [facility], [address], [place], [place], [address], [place] tel:[phone] [facility] [place] No Information 6200 7 Candelaria Tolentino. [address] [place], [place] [address]ate Center , [address], [place], [facility], [place]. tel:[phone] Referring Provider: Jeremias Holman, [facility] [address], [place], [facility]. tel:[phone] [facility], [address], [place], [place], [id number], [place] tel:[phone] [facility] No Information 8-200 7 Harris OD Jeremias. [address] [place], [place] [address]ate Rie Alexis, [address], [place], [facility], [place]. tel:[phone] Referring Provider: Rajan Holman, [facility] [address], [place], [facility]. tel:[phone] [facility], [address], [place], [place], [address], [place] tel:[phone] [facility] No Information 7200 7 Candelaria Tolentino. [facility] Rei Alexis, [address], [place], [facility], [place]. tel:[phone] Referring Provider: Jeremias Harris OD [place], [address] [place] [address] [address], [place], [address]. tel:[phone] [facility], [address] [place] [address] [address], [place], [place], [address], tel:[phone] [facility] No Information 0 9-200 7 Doisy Edward. [address] [place] [address] , [address], [place], [address], . tel:[phone] Referring Provider: Jeremias Holman, [address] [place] [address] [address], [place], [address]. tel:[phone] [facility], [address] [place] [address] [address], [place], [place], [address], tel:[phone] [facility] No Information 3-200 7 Harris OD Jeremias. [address] [place] [address] , [address], [place], [address], [place]. tel:[phone] Family History Family Member Type Diagnosis Age At Onset No Information Payers Payer name Insurance type Covered constitution party ID Authoriza tirocio(s) [place] [id number] Social History Type Description Quantity Date Captured [...]
--- OUTSIDE RECORDS SUMMARY | 2024-05-01 02:54 | XMS_ITS | Encounter Summary ---
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
--- OUTSIDE RECORDS SUMMARY | 2024-05-01 02:54 | XMS_ITS | Clinical Summary ---
Author Organization [facility] Address [address] [facility] [place] [address] Care Team Providers Care Coat Joiner Lockstitch Name Role Phone Unavailable Primary Care Provider Unavailabl e Source Comments [facility],non-owned Affiliates and Associated Physician Practices is amultiple site organization consisting of ambulatory clinics and hospital sitesin [place], [place], [place] and [place]. This disclosure is being madepursuant to the Care Everywhere program and may not contain all information available regarding this patient. Last updated 17.[employer] [facility] Allergies No known active allergies Medications * Be aware that medications may not be up to date on this document. Alwaysverify current medications with the patient. Medication Sig Dispensed Refills Start Date End Date Status topiramate (TOPAMAX) 100 MG tablet Take 100 mg by mouth 2 times daily. Active citalopram (CELEXA) 40 MG tablet Take 40 mg by mouth once daily. Active risperiDONE (RISPERDAL) 2 MG tablet Take 2 mg by mouth once daily. Active buPROPion SR 12hr (WELLBUTRIN SR) 200 MG tablet Take 200 mg by mouth 2 times daily. Active leflunomide (ARAVA) 20 MG tablet Take 20 mg by mouth once daily. Active diclofenac sodium (VOLTAREN) 75 MG tablet Take 75 mg by mouth once daily. Active esomeprazole (NEXIUM) 40 MG capsule Take 40 mg by mouth daily before breakfast. Active levothyroxine (LEVOXYL) 200 MCG tablet Take 200 mcg by mouth daily before breakfast. Active simvastatin (ZOCOR) 40 MG tablet Take 40 mg by mouth at bedtime. Active albuterol-ipratropiu m (COMBIVENT) 18-103 MCG/ACT inhaler Inhale 2 Puffs by mouth 4 times daily as needed. Active Abatacept (ORENCIA IV) 1,000 mg by Intravenous route as directed. 03/09/11 start first infusion and repeat in 2 weeks and then 4 weeks and then every 4 weeks Active oxybutynin CR 24hr (DITROPAN-XL) 10 MG tablet Take 10 mg by mouth 2 times daily. Active ibuprofen (ADVIL; MOTRIN) 100 MG/5ML SUSP suspensionIndication s:Rheumatoid Arthritis Take 200 mg by mouth every 6 hours as needed. Indications: Rheumatoid Arthritis Active TRAMADOL HCL ER PO Take 1 Tab by mouth as needed. Active predniSONE (DELTASONE) 10 MG tablet Take 10 mg by mouth once daily. Active Active Problems Problem Noted Date Diagnosed Date Rheumatoid arthritis 02/22/2012 Overview (01/13/2015): Immunizations Name Administration Dates Next Due INFLUENZA VACCINE, QUADR. (F LUZONE; FLULAVAL; FLUARIX; AFLURIA QUADRIVALENT; 6MO+), 0.5 ML (IIV4) 01/05/2020 Social History Tobacco Use Types Packs/Day Years Used Date Smoking Tobacco: Former Cigarettes Q uit: 02/22/2007 Smokeless Tobacco: Never Tobacco Cessation:Counseling Given: No Alcohol Use Standard Drinks/Week Comments No 0 (1 standard drink = 0.6 oz pur e alcohol) Sex and Gender Information Value Date Recorded Sex Assigned at Not on file Gender Identity Not on file Sexual Orientation Not on file Last Filed Vital Signs Vital Sign Reading Time Taken Comments Blood Pressure 121/56 11/14/2012 10:50 AM CDT Pulse 72 11/14/2012 10:50 AM CDT Temperature 36.8 C (98.3 F) 11/14/2012 10:50 AM CDT Respiratory Rate 18 11/14/2012 10:50 AM CDT Oxygen Saturation - - Inhaled Oxygen Concentration - - Weight 143.3 kg (316 lb) 05/23/2012 11:23 AM CDT Height 162.6 cm (5' 4 ) 05/23/2012 11:23 AM CDT Body Mass Index 54.24 05/23/2012 11:23 AM CDT Plan of Treatment Health Maintenance Due Date Last Done Comments BONE DENSITY TESTING 1955 COLOGUARD (AGES 45-75) - COLON CA SCREENING 1955 COLON MONITORING 1955 COLONOSCOPY - COLON CA SCREENING 1955 CT COLONOGRAPHY - COLON CA SCREENING 1955 Colorectal Cancer Screening 1955 FIT - COLON CA SCREENING 1955 FLEX SIG - COLON CA SCREENING 1955 MAMMOGRAM 1955 HEPATITIS C SCREENING 08/14/1973 DTAP/TDAP/TD VACCINES (1 - Tdap) 08/18/1974 PNEUMOCOCCAL VACCINE 50+ (1 of 1 - PCV) 08/18/2005 ZOSTER VACCINE (1 of 2) 08/18/2005 Respiratory Syncytial Virus (RSV) Vaccine Pt: or over 60 yrs (1 - Risk 60-74 years 1-dose series) 2015 COVID-19 VACCINE (1 - 2023- season) 2023 INFLUENZA VACCINE (#1) 2023 0, 11/28/2018, 12/14/2017, Additional history exists DEPRESSION SCREENING 03/08/2024 MEDICARE AWV CALENDAR YEAR 2024 HEPATITIS B VACCINE Aged Out No longe r eligible based on patient's age to complete this topic HIB VACCINE Aged Out No longer eligi ble based on patient's age to complete this topic HPV VACCINE Aged Out No longer eligi ble based on patient's age to complete this topic MENINGOCOCCAL (Group B) VACCINE Aged Out No longer eligible based on patient's age to complete this topic MENINGOCOCCAL VACCINE Aged Out No marci randy eligible based on patient's age to complete this topic Advance Directives Documents on File Type Date Recorded Patient Ceo And [employer] Founder Expl anation Adv Directive/Living Will/POA 06/20/2012 12:56 PM RECOVERY RX
--- OUTSIDE RECORDS SUMMARY | 2024-05-01 02:54 | XMS_ITS | Data Portability ---
Author Organization [facility] Address [address] [place] [address] Care Team Providers Care Lodge Attendant Name Role Phone ROTHMANANITRA Primary Care Provider [phone] Assessment Encounter Date Assessment Date Assessment LastModified by Organization Details LastModified Time 04/17/2019 04/17/[address] Almaraz every 5 years for colonoscopy; has mammogram ordered in 1 week, Sung also does EGD with esophageal dilation every year. Patient quit smoking but still has a little emphysema. [email or web address] Not available 04/27/2019 23:12:00 Plan of Treatment Reminders Order Date Submit Date Provider Last Modified By Organization Details Last Modified Time Details Appointments None recorded. Lab None recorded. Referral rheumatol ogist referral - Please call patient and schedule appt. Please send consult note after initial visit. Thank you 2019 [facility] Suzanne Zaman MD, [address] , [address], [address], 0 12:04:57 Procedures None recorded. Surgeries None recorded. Imaging MAMMO, diagnosti c, digital, bilateral 2019 020 [facility] (Mammography) , [address], [place], [address], 0 12:35:21 US, breast, bilateral 2019 020 [facility] (Mammography) , [address], [place], [address], 0 12:35:21 Medication Orders None recorded. Patient TargetsNo targets recorded. Patient Instructions Encounter Date Encounter Id Patient Instructions Last Modified By Organization Details Last Modified Time 04/17/2019 [id number] rheumatoid arthritis diet: care instructions [email or web address] Not available 04/27/2019 23:15:29 Rheumatoid Arthritis (RA): Care Instructions [email or web address] Not available 04/27/2019 23:15:29 Reason for Referral Cma Referral for Rheumatoid arthritis Please call patient and schedule appt. Please send consult note after initial visit. Thank you Referring Physician: Anitra Rothman, Family Medicine, Encounter Date: 04/17/2019 Problems No Known Problems Procedures Surgical History Date Name Laterality Status Provider Name and Address Organization Details Recorded Time 03/08/18 90 total hysterectomy completed JOSUE Poon [facility] 04/17/2019 11:47:44 total knee replacement completed JOSUE Poon [facility] 04/17/2019 11:46:29 Carpal tunnel surgery completed JOSUE Poon [facility] 04/17/2019 11:46:34 Carpal tunnel surgery completed JOSUE Poon [facility] 04/17/2019 11:46:34 Carpal tunnel surgery completed JOSUE Poon [facility] 04/17/2019 11:46:35 tonsillectomy completed JOSUE Poon [facility] 04/17/2019 11:46:41 Imaging Results None recorded. Procedure Notes None recorded. Medical Equipment None Reported. Allergies No known drug allergies Medications Name Sig Start Date Stop Date Status Note LastModified by Organization Details LastModified Time amoxicillin 500 mg capsule 11/05 completed Not Available Not Available Not Available oxybutynin chloride ER 15 mg tablet,exten ded release 24 hr Take 1 tablet twice a day by oral route. active Not Available Not Available No t Available atorvastatin 20 mg tablet Take 1 tablet every day by oral route. active Not Available Not Available No t Available ropinirole 1 mg tablet Take 1 tablet every day by oral route at bedtime. active Not Available Not Available No t Available citalopram 40 mg tablet Take 1 tablet every day by oral route. active Not Available Not Available No t Available prednisone 5 mg tablet Take 1 tablet every day by oral route. active Not Available Not Available No t Available acetaminophe n 300 mg-codeine 30 mg tablet active Not Available Not Available Not Available sulfamethoxa zole 800 mg-trimethop rim 160 mg tablet active Not Available Not Available Not Available omeprazole 40 mg capsule,melba yed release Take 1 capsule every day by oral route. active Not Available Not Available No t Available leflunomide 20 mg tablet Take 1 tablet every day by oral route. active Not Available Not Available No t Available risperidone 2 mg tablet Take 1 tablet every day by oral route at bedtime. 11/05 completed Not Available Not Available Not Available amlodipine 10 mg tablet Take 1 tablet every day by oral route. active Not Available Not Available No t Available levothyroxin e 200 mcg tablet Take 1 tablet twice a day by oral route. active Not Available Not Available No t Available methylpredni solone 4 mg tablets in a dose pack 11/05 completed Not Available Not Available Not Available albuterol sulfate HFA 90 mcg/actuatio n aerosol inhaler active Not Available Not Available Not Available topiramate 100 mg tablet Take 1 tablet 3 times a day by oral route. active Not Available Not Available No t Available risperidone 1 mg tablet active Not Available Not Available Not Available bupropion HCl SR 200 mg tablet,12 hr sustained-re lease Take 1 tablet twice a day by oral route. active Not Available Not Available No t Available duloxetine 60 mg capsule,melba yed release Take 1 capsule every day by oral route. active Not Available Not Available No t Available Enbrel SureClick 50 mg/mL (1 mL) subcutaneous pen injector active Not Available Not Available Not Available Vitals Date Recorded Body height Oxygen saturation Oxygen saturation in Arterial blood by Pulse oximetry Heart rate Body mass index (BMI) Body weight Systolic blood pressure Diastolic blood pressure Provider Name and Address Organization Details Last Updated DateTime 0 158.75 cm 97 % 97 % 64 /min 42.9 kg/m2 660892. 38 g 132 mm[Hg] 72 mm[Hg] Juana Smith MA [facility] 0 11:50:09 Social History Question Answer Notes LastModified by Organizat ion Details LastModified Time Tobacco Smoking Status Former Smoker Juana Smith MA null, [facility] 04/17/2019 11:44:42 Do You Have An Advance Directive? Yes Medical Will And POA Information not available 04/17/2019 What Is Your Level Of Alcohol Consumption? None Information not available 04/17/2019 What Is Your Level Of Caffeine Consumption? Moderate Information not available 04/17/2019 How Much Tobacco Do You Chew? None Information not available 04/17/2019 Are You Currently Employed? No Information not available 04/17/2019 What Type Of Diet Are You Following? REGULAR Information not available 04/17/2019 Which Illicit Or Recreational Drugs Have You Used? None Information not available 04/17/2019 Do You Or Have You Ever Used E-cigarettes Or Vape? Never Used Electronic Cigarettes Information not available 04/17/2019 Education 2 Year College Informatio n not available 04/17/2019 Hard Of Hearing Or Deaf In One Or Both Ears? No Information not available 04/17/2019 Legally Blind In One Or Both Eyes? No Information not available 04/17/2019 Live Alone Or With Others? With Others Information not available 04/17/2019 What Was The Date Of Your Most Recent Tobacco Screening? 11/06/2019 Information not available 11/06/2019 How Many Children Do You Have? 1 Information not available 04/17/2019 Smoke Alarm In Home Yes Information not available 04/17/2019 At What Age Did You Start Smoking Tobacco? 15 Information not available 04/17/2019 Are You Passively Exposed To Smoke? Yes Information not available 04/17/2019 Do You Or Have You Ever Used Smokeless Tobacco? Never Used Smokeless Tobacco Information not available 04/17/2019 How Much Tobacco Do You Smoke? No Information not available 04/17/2019 General Stress Level Low Information not available 04/17/2019 On What Date Was Tobacco Cessation Counseling Provided? 04/17/2019 Information not available 04/17/2019 How Many Years Have You Smoked Tobacco? 30 Information not available 04/17/2019 Sex: Unknown Functional Status Question Answer Note LastModified by Organizat ion Details LastModified Time Are you able to care for yourself? Yes Information not available 04/17/2019 What is your exercise level? Occasional Information not available 04/17/2019 Mental Status None recorded. Family History Relationship Description Onset Age of this Age Resolved Age Notes LastModified by Organization Details LastModified Time Father Family history of malignant neoplasm [email or web address] Not available 04/17 11:44:29 Mother Pulmonary emphysema [email or web address] Not available 04/17 11:44:37 Medical History Condition Response Coronary Artery Disease N Other Y Atrial Fibrillation N High Blood Pressure N Thyroid Problems Y Kidney or Bladder Problems N GI Problems N Depression N COPD Y Blood Clots N Eating Disorder N Skin Problems N Anemia N Heart Attack (CO) N Diabetes N Anxiety Disorder N Muscle, Joint, or Bone Problems N Seizures/Epilepsy N Acid Reflux (GERD) Y Cancer N Stroke N Asthma N Allergies Y ADHD N Substance Abuse N High Cholesterol Y Hepatitis N Liver Disease N Schizophrenia N Headaches N Osteoporosis N Heart Failure Y Gynecological History Statement/Question Response Date of Last Pap Smear Age at Menarche 12 Current Control Method Hysterectom y Date of Last Mammogram Age at First Child 17 Obstetrics History GPAL:G 1 P 1 0 0 1 Type Value Multiple Births 0 Full Term 1 Induced 0 Spontaneous 0 Premature 0 Living 1 Ectopics 0 Total 1 Immunizations Vaccine Type Date Status Note Provider Nam e and Address Organization Details Recorded Time influenza, unspecified formulation 12/06/2018 completed Juana Smith MA [facility], [place] [facility] 04/17/2019 11:49:45 Past Encounters Encounter ID Performer Location Encounter Start Date Encounter Closed Date Diagnosis/Indication Diagnosis SNOMED-CT Code Diagnosis ICD10 Code Diagnosis Note [id number] Anitra Rothman MD [facility] [address] [place] [address] 04/17/2019 11:31:59 04/28/2019 09:32:12 Rheumatoid arthritis 64085486 M06.9 enbrel shots weekly, Depression screening 171 026939 Z13.31 patient does not appear to be significan tly depressed. 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 patient denies taking hormone replacemen t therapy Health Concerns Section Related Observation LastModified by Organization Detai ls LastModified Time None Recorded Concern Status LastModified by Organization Details LastModified Time None Recorded Advance Directives Directive Y: Medical Will and POA Payers Encounter Date Sequence Insurance Name Policy Number Policy Church Covered Member ID Church Member ID Guarantor Name 04/17/2019 1 [employer] (MEDICARE REPLACEMENT HMO) [id number] Alisha Arguello [id number] Alisha Arguello 11/06/2019 1 [employer] - [employer] (MEDICARE REPLACEMENT/A DVANTAGE - HMO) [id number] Alisha Arguello [id number] Alisha Arguello Notes Date Note Type Note Provider Name and Address Organization Details Recorded Time 04/17/2019 text/html Pt. states she i s here to establish care and needs a referral Anitra Rothman MD Attn: [address] [place], [address], [facility] 04/27/2019 23:16:21 11/06/2019 text/html Breast PainReported bypatient.Location :bilateral Onset/Timin-4 weeks Duration:intermitt ent Quality:sharp; stabbing Severity:moderate Context:[place] radha Modifying Factors:touch; exercise; pressure Associated Symptoms:no fever; no chills; no nipple discharge; no breast swelling; no arm pain; no arm swelling; no chest pain; no malaise; facial infection treated with antibiotics; denies infections on hands or arms or abdominal wal. Anitra Rothman MD Attn: [address] [place], [address], [facility] 11/06/2019 23:54:55 OBGyn Episode Ob Episode Information Episode Created Date Number of Fetuses Patient Bloodtype Patient rh Status Prepregnancy Weight lbs Domestic Partner Domestic Partner Phone Father Name Registered Physical Therapist Status 04/17/19 20 1 CLOSED Fetus Data First Name Last Name Admitted to NICU Weight (g) Sex Living Outcome Pediatric Complications Fetus ID Race Codes Race Delivery Type [id number] Memo Calculation Initial Memo Date Initial Exam Date Initial Exam Provider Initial Ultrasound Date Last Menstrual Period Date Ultra Sound Weeks Gestation 0 Eighteen To Twenty Week Memo Update Ultra Sound Date Fundal Height At Umbil Quickening Date Ultra Sound Latest Weeks Gestation Final Memo Confirmed By Final Memo Confirmed Date Final Memo Date Ultra Sound Latest Days Gestation 0 0 Menstrual History Last Menstrual Date Menses Monthly On Bcp Conception Prior Menses Frequency Hcg Plus Date Menarche Onset Age Delivery Information Delivery Date Delivery Type Labor Anesthesia Weeks Gestation Incision Type Labor Labor Length Hrs Delivered By Post Complications Tubal Sterilization Discharge Date Comments 3 Discharge Information Feeding Method Contraceptive Method Maternal HG B and HCT Levels
--- OUTSIDE RECORDS SUMMARY | 2024-05-01 02:54 | XMS_ITS | Encounter Summary ---
Author Organization [facility] Address [address] [place] [address] Phone Care Team Providers Care Mixer Diamond Powder Name Role Phone Sarmad Bowden Primary Care Provider [phone] Cy Mckinnon DO Unavailable [phone] Mirna Rider MD Primary Care Provider [phone] Anitra Rothman MD Primary Care Provider [phone] Justen Milton MD Primary Care Provider [phone] Herve Wilson MD Primary Care Provider Encounter Details Date Type Department Care Team (Late st Contact Info) Description 06/18/2017 Orders Only [facility] ProviderRusty MD [address] [place] [address] Social History Tobacco Use Types Packs/Day Years Used Date Smoking Tobacco: Former Smokeless Tobacco: Never Comments:Smoking History Pac ks/day: 1 Packs Alcohol Use Standard Drinks/Week Comments No 0 (1 standard drink = 0.6 oz pur e alcohol) Comments Unknown Sex and Gender Information Value Date Recorded Sex Assigned at Not on file 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 us Historical Provider LAB BLOOD ORDERABLES Isadora l Result documented in this encounter Visit Diagnoses Not on filedocumented in this encounter Care Teams Mixer Diamond Powder Relationship Specialty Start Date End Date F[place]ola Bowden MD [address] [address] PCP - General 06/05/16 12/15/17 Mirna Rider MD [facility] [place] [address] PCP - General 12/16/17 04/23/19 Anitra Rothman MD [address] [place] [address] [place] [address] PCP - General 04/24/19 03/24/20 Justen Milton MD [address] [place] [address] PCP - General 03/25/20 10/07/23 Herve Wilson MD [address] [place] [address] PCP - General Family Medicine 10/08/23 Cy Mckinnon DO [address] [place] [address] Medical Oncologist/Measurer Hematology and Oncology 10/05/17 documented as of this encounter
--- OUTSIDE RECORDS SUMMARY | 2024-05-01 02:54 | XMS_ITS | Clinical Summary ---
Author Organization [facility] Address [address] [place] [address] Care Team Providers Care Bog Cutter Name Role Phone Cy Mckinnon DO Unavailable [phone] Herve Wilson MD Primary Care Provider [phone] Allergies Active Allergy Reactions Criticality Noted Date Comments Cephalexin Unknown 08/10/2017 Yeast infection Lisinopril Other (See comments) Low 08/10/2017 Montelukast Other (See comments),Unknown Low [address] (CYMBALTA) 60 mg capsule take 1 capsule by oral route every day 0 0 4 Active OXcarbazepine (TRILEPTAL) 300 mg tablet take 1 tablet by oral route 3 times every day 0 0 5 Active rOPINIRole (REQUIP) 1 mg tablet take 1 tablet by oral route every day 0 0 5 Active topiramate (TOPAMAX) 100 mg tablet take 1 Tablet (100MG) by oral route 3 times every day [address] (NexIUM) 40 mg capsule Take 1 capsule (40 mg total) by mouth daily before breakfast Active atorvastatin (LIPITOR) 20 mg tablet Take 1 tablet (20 mg total) by mouth daily Active albuterol HFA (PROVENTIL HFA,VENTOLIN HFA,PROAIR HFA) 90 mcg/actuation inhaler Inhale 2 puffs every 6 (six) hours as needed Active metoprolol tartrate (LOPRESSOR) 25 mg immediate release tablet Take 1 tablet (25 mg total) by mouth daily 2 Active buPROPion SR (WELLBUTRIN SR) 200 mg 12 hr tablet Take 1 tablet (200 mg total) by mouth 2 (two) times a day 2 Active citalopram (CeleXA) 20 mg tablet Take 1 tablet (20 mg total) by mouth daily 2 Active risperiDONE (RisperDAL) 1 mg tablet Take 1 tablet (1 mg total) by mouth nightly 2 Active amLODIPine (NORVASC) 5 mg tablet Take 1 tablet (5 mg total) by mouth daily 2 Active meloxicam (MOBIC) 15 mg tablet Take 1 tablet (15 mg total) by mouth daily 3 Active levothyroxine (SYNTHROID) 150 mcg tablet Take 1 tablet (150 mcg total) by mouth daily 4 Active alendronate (FOSAMAX) 70 mg tablet TAKE 1 TABLET BY MOUTH ONE TIME PER WEEK 12 tablet 4 Active leflunomide (ARAVA) 20 mg tablet TAKE 1 TABLET BY MOUTH EVERY DAY 90 tablet 4 Active etanercept (EnbreL SureClick) 50 mg/mL (1 mL) pen injector INJECT 1 PEN UNDER THE SKIN EVERY 7 DAYS. 4 mL 3 4 Active predniSONE (DELTASONE) 5 mg tablet TAKE 1 TABLET BY MOUTH EVERY DAY 30 tablet 5 Active Active Problems Problem Noted Date Diagnosed Date Angina at rest 03/06/2024 Aortic insufficiency 03/06/2024 Depressive disorder 03/06/2024 Hypertension 03/06/2024 Hypoxemia 03/06/2024 Overview (03/06/2024): nocturnal Obstructive sleep apnea syndrome 03/06/2024 Obesity 03/06/2024 Bipolar II disorder (CMS/HCC) 03/06/2024 Restless legs syndrome 03/06/2024 Long-term use of high-risk medication 10/08/2023 Assessment & Plan (10/08/2023 11:08 AM CDT): Long-term use of high-risk medication requiring regular monitoring. Labs ordered, no s/s of med tox or infection. Encouraged to work with PCP to make sure all recommended cancer screens and vaccinations are complete. Avoid live-vaccines unless reviewed with conveyor line battery charger first. Osteopenia 10/08/2023 Assessment & Plan (10/08/2023 11:08 AM CDT): On fosamax since 2020. Due for repeat DEXA. Will do at [facility]. You need 1200mg calcium daily between supplements and food (preferably in food). Every cup of milk and ounce of cheese contains 200mg calcium and a cup of yogurt or most nut milks may contain 300mg calcium. Most multivitamins contain up to 500mg calcium and supplements may contain from 200mg to 500mg calcium. Pay attention to elemental calcium on the label and to the number of pills a serving represents. Try not to take more than 500mg elemental calcium in supplements at one time and drink with full 16 ounces of water to prevent kidney stones and stress on the heart. Walking at least 3 times a week for 30 minutes helps with bone density health in addition to the heart and brain benefits. Moderate persistent asthma 06/10/2023 Smoker 04/07/2023 Sensory urge incontinence 10/30/2021 Overview (10/30/2021): Added automatically from request for surgery [id number] Mechanical complication of e lectrode lead of implanted electronic neurostimulator of peripheral nerve 10/30/2021 Overview (10/30/2021): Added automatically from request for surgery [id number] Stress incontinence 07/04/2020 Overview (07/04/2020): Added automatically from request for surgery [id number] Primary nocturnal enuresis 07/04/2020 Overview (07/04/2020): Added automatically from request for surgery [id number] Dysphagia 03/27/2020 Overview (03/27/2020): Added automatically from request for surgery [id number] Special screening for malignant neoplasms, colon 03/27/2020 Overview (03/27/2020): Added automatically from request for surgery [id number] Anemia 02/22/2019 Overview (03/06/2024): Problems with anemia when Rheumatoid Arthritis is more active Melisa Titus 02.22.2019 Pain 02/22/2019 Overview (03/06/2024): Last Assessment & Plan: Pain in in right wrist and left ankle Melisa Titus 02.22.2019 Iron deficiency anemia 10/01/2017 Iron deficiency anemia 08/10/2017 BMI 40.0-44.9, adult 12/29/2016 Drug indicated 11/26/2014 Overview (06/12/2016): High risk medications (not anticoagulants) long-term use Diverticulitis of intestine 07/22/2013 Overview (06/12/2016): Diverticulitis Hyperlipidemia 07/22/2013 Overview (06/12/2016): Hyperlipidemia LDL goal < 100 Chronic obstructive pulmonary disease 07/22/2013 Overview (06/12/2016): COPD (chronic obstructive pulmonary disease) Hypothyroidism 07/22/2013 Overview (06/12/2016): Hypothyroid Gastric ulcer 07/22/2013 Overview (06/12/2016): Gastric ulcer Overactive bladder 06/14/2012 Overview (06/12/2016): OAB (overactive bladder) Restless legs syndrome 06/14/2012 Overview (06/12/2016): RLS (restless legs syndrome) Rheumatoid arthritis 06/14/2012 Overview (06/12/2016): Rheumatoid arthritis Assessment & Plan (10/08/2023 11:08 AM CDT): Stable on simponi, continue same. Follow up in 4 months and prn. Gastroesophageal reflux disease 06/14/2012 Overview (06/12/2016): GERD (gastroesophageal reflux disease) Bipolar I disorder 06/14/2012 Overview (06/12/2016): Bipolar 1 disorder Adiposity 06/14/2012 Overview (06/12/2016): Obesity Rheumatoid arthritis 02/22/2012 Overview (03/06/2024): Encounters Date Type Department Care Team Description 02/18/2024 Telephone [facility] [address] [place] [address] Jeronimo Negrete RPh 02/17/2024 Telephone [facility] at [facility] [address] [place] [address] Suzanne Zaman MD from Last 3 Months Immunizations Immunization Administration Dates Next Due Flucelvax Influenza Quad 01/16/2017 Influenza, Quadrivalent, Kait l Culture-based MDCK, Preservative Free, Antibiotic Free, Intramuscular 12/16/2017 Influenza, Quadrivalent, Hig h Dose, Preservative Free, Intrr 01/16/2022,01/17/2021 Influenza, Quadrivalent, Spl it, Intramuscular 01/17/2017 Influenza, Quadrivalent, Spl it, Preservative Free, Intramuscular 01/05/2020,11/28/2018 Influenza, Trivalent, IM (MDV) 12/25/2014,2013,01/11/2013 Influenza, Trivalent, Preser vative Free, Intramuscular 12/31/2015 Influenza, Trivalent, Split, Preservative Free, Intradermal 12/05/2013 Influenza, Unspecified 12/06/2018,2017,01/17/2017,12/31 Pneumococcal Conjugate PCV 13 01/16/2022 Pneumococcal Polysaccharide PPV23 03/18/2012 ZOSTER Recombinant 03/24/2020,01/05/2020 Surgical History Surgery Date Site/Laterality Comments TOTAL KNEE ARTHROPLASTY left TKR BLADDER SURGERY bladder sling OTHER SURGICAL HISTORY C spine surgery OTHER SURGICAL HISTORY bilat CTS release OTHER SURGICAL HISTORY thyroid nodule removal HYSTERECTOMY Hysterectomy TONSILLECTOMY tonsillectomy CARPAL TUNNEL RELEASE Bilateral Medical History Medical History Date Comments Gastric ulcer 07/22/2013 Gastric ulcer Chronic obstructive pulmonar y disease (HCC) 07/22/2013 COPD (chronic obstructive pu lmonary disease) Restless legs syndrome 06/14/2012 RLS (rest less legs syndrome) Diverticulitis of intestine 07/22/2013 Dive rticulitis Bipolar I disorder ([facility]) 06/14/2012 Bipolar 1 disorder Rheumatoid arthritis ([facility]) Hypothyroidism Hyperlipidemia HTN (hypertension) GERD (gastroesophageal reflux disease) Esophageal stenosis Osteoporosis Neuropathy ([facility]) Heart valve regurgitation CHF (congestive heart failur e) ([facility]) ([facility]) history Bipolar 1 disorder ([facility]) Hiatal hernia Peptic ulcer disease Family History Medical History Relation Name Comments Colon cancer Father 2 Cancer -colon; Cause of : Cancer -colon Heart attack Maternal Grandmother 2 CO; C ause of : CO COPD Mother 2 COPD; Cause of : COPD Relation Name Status Comments Father 1 (Age 67) Father 2 Maternal Grandmother 1 Alive (Age 90) Maternal Grandmother 2 Mother 1 (Age 67) Mother 2 Social History Tobacco Use Types Packs/Day Years Used Date Smoking Tobacco: Every Day Cigarettes 0.8 30 Started: 02/1977; Last attempted to quit: 02/2007 Smokeless Tobacco: Never Tobacco Cessation:Ready to Q uit: Not Asked; Counseling Given: Not Answered Comments:Smoking History Packs/day: 1 Packs Alcohol Use Standard Drinks/Week Comments No 0 (1 standard drink = 0.6 oz pur e alcohol) AUDIT-C Answer Date Recorded Q1: How often do you have a drink containing alc ohol? Never 01/16/2022 Average Number of Drinks Not on file 022 Q3: How often do you have si x or more drinks on one occasion? 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 Not on file Not on file Not on file Obstetrics History Last Filed Vital Signs Vital Sign Reading Time Taken Comments Blood Pressure 130/80 10/08/2023 9:39 AM CDT Pulse 58 10/08/2023 9:39 AM CDT Temperature 37 C (98.6 F) 10/08/2023 9:39 AM CDT Respiratory Rate 20 10/08/2023 9:39 AM CDT Oxygen Saturation 95% 10/08/2023 9:39 AM CDT Inhaled Oxygen Concentration - - Weight 117 kg (258 lb) 10/08/2023 9:39 AM CDT Height 160 cm (5' 3 ) 10/08/2023 9:39 AM CDT Body Mass Index 45.7 10/08/2023 9:39 AM CDT Plan of Treatment Health Maintenance Due Date Last Done Comments Depression Screening 1955 Hepatitis C Screening 1955 DTaP/Tdap/Td Vaccine (1 - Tdap) 08/18/1966 Hepatitis B Screening 08/18/1973 Lung Cancer Screening 08/18/2005 Breast Cancer Screening-Mammogram 04/24/2020 04/24/2019, 12/09/2016, 11/27/2015, Additional history exists Well Visit 65+ 08/18/2020 Osteoporosis Screening-Bone Density Scan 04/05/2022 04/05/2020 Fall Risk Assessment 12/02/2022 12/02/2021 Influenza Vaccine (#1) 2023 2, 01/17/2021, 01/05/2020, Additional history exists Pneumococcal vaccine 65+ (3 of 3 - PCV20 or PCV21) 01/16/2027 01/16/2022, 03/18/2012 Colon Cancer Screening-Colonoscopy 04/12/2030 04/12/2020 Zoster Vaccine Completed 03/24/2020, 01/05/2020 Colon Cancer Screening-CT Colonography Discontinued 04/12/2020 Colon Cancer Screening-DNA Stool Discontinued 04/12/19 Colon Cancer Screening-FIT Discontinued 04/12/2020 Colon Cancer Screening-Sigmoidoscopy Discontinued 04/12/2020 Medical Devices Implanted Type Area Estate And Trust Tax Principal Device Identifier Shelf Expiration Date Model / Serial / Lot Medtronic Neuro 3058 Interstim Ii 2inx1.7in 4 Electrode Nursing Home Administrator Sacral Nerve - [id number] - [id number] Implanted:Qty: 1 on 07/23/2020 by Husam Morales MD at [facility] Neurostimulator Right: Buttocks Medtronic Inc 07/03/2021 [id number] / [id number] / Description:Sub Q upper righ t buttocks [employer] [id number] Interstim 28cm Quadripolar Mri Lead Laying And Gluing Machine Operator Neurostimulator - Sn/A - [id number] Implanted:Qty: 1 on 07/23/2020 by Husam Morales MD at [facility] Neurostimulator Right: Lumbar-Sac ral Spine Medtronic Inc 10/22/2021 [id number] / N/A / [id number] Description:Right Sacral-3 F oramin Medtronic Inc Generator Neurostimulator Bowel Bladder Recharge Free Interstim X [id number] - [id number] - [id number] Implanted:Qty: 1 on 12/02/2021 by Husam Morales MD at [facility] N/A: Buttocks Medtronic Inc 04/21/2023 [id number] / [id number] / Medtronic Inc Interstim 28cm Quadripolar Mri Lead Laying And Gluing Machine Operator Neurostimulator [id number] - [id number] Implanted:Qty: 1 on 12/02/2021 by Husam Morales MD at [facility] N/A: Sacrum Medtronic Inc 02/12/2023 [id number] / / [id number] Procedures Procedure Name Priority Date/Time Associated Diagnosis Comments COLONOSCOPY 04/12/2020 8:43 AM WORK CAR OPERATOR DEXA AXIAL SKELETON BONE DENSITY 1 OR MORE SITES Schedule Routine, Read Routine (OP Routine) 04/05/2020 10:47 AM WORK CAR OPERATOR Encounter for screening for osteoporosis SCREENING MAMMOGRAM BILATERAL W CRISTOBAL Schedule Routine, Read Routine (OP Routine) 04/24/2019 11:01 AM WORK CAR OPERATOR Encounter for screening mammogram for malignant neoplasm of breast from Last 3 Months or Most Recently Relevant to Health Maintenance Results * COLONOSCOPY (04/12/2020 8:43 AM WORK CAR OPERATOR) Anatomical Region Laterality Modality Other Narrative Procedure Note Jeniffer Almaraz MD - 04/12/2020 8:43 AM CST [facility] Patient Name: Alisha Arguello Procedure Date: 04/12/2020 8:43 AM Date of : 1955 Admit Type: Outpatient Age: 64 Gender: Female Note Status: Finalized Attending MD: Jeniffer Almaraz M.D. Procedure Date: 04/12/2020 Procedure: Colonoscopy Indications: Screening for colorectal malignant neoplasm Providers: Jeniffer Almaraz M.D., DEEP Stephens (Anesthesia Staff), Nisreen Chavez RN Referring MD: Terrell Milton M.D. Medicines: Propofol per Anesthesia Complications: No immediate complications. Estimated Blood Loss: Estimated blood loss: none. Procedure: Pre-Anesthesia Assessment: - Prior to the procedure, a History and Physicalwas performed, and patient medications and allergieswere reviewed. The patient is competent. The risks and benefits of the procedure and the sedation optionsand risks were discussed with the patient. Allquestions were answered and informed consent was obtained. Patient identification and proposed procedure were verified by the physician, the nurse and the anesthesiologist in the pre-procedure area. Mental Status Examination: alert and oriented. Airway Examination: normal oropharyngeal airway and neck mobility. Respiratory Examination: clear to auscultation. CV Examination: normal. Prophylactic Antibiotics: The patient does not requireprophylactic antibiotics. Prior Anticoagulants: The patient has taken no previous anticoagulant or antiplatelet agents. ASA Grade Assessment: III - A patient with severe systemic disease. After reviewing the risksand benefits, the patient was deemed in satisfactory condition to undergo the procedure. The anesthesia plan was to use moderate sedation / analgesia (conscious sedation). Immediately prior to administration of medications, the patient was re-assessed for adequacy to receive sedatives. The heart rate, respiratory rate, oxygen saturations, blood pressure, adequacy of pulmonary ventilation,and response to care were monitored throughout the procedure. The physical status of the patient was re-assessed after the procedure. - The risks and benefits of the procedure and the sedation options and risks were discussed with the patient. All questions were answered and informed consent was obtained. After I obtained informed consent, the scope was passed under direct vision. Throughout theprocedure, the patient's blood pressure, pulse, and oxygen saturations were monitored continuously. The scopewas passed under direct vision. The Colonoscope was introduced through the anus and advanced to the the cecum, identified by appendiceal orifice andileocecal valve. The colonoscopy was performed without difficulty. The patient tolerated the procedurewell. The quality of the bowel preparation was good. The bowel preparation used was GoLYTELY via split dose instruction. The patient tolerated the procedurewell. Findings: The perianal and digital rectal examinations were normal. Many medium-mouthed diverticula were found in the sigmoid colon and descending colon. The exam was otherwise without abnormality. Impression: - Diverticulosis in the sigmoid colon and in the descending colon. - The examination was otherwise normal. - No specimens collected. Recommendation: - Discharge patient to home (ambulatory). - Resume previous diet. - Continue present medications. - Repeat colonoscopy in 10 years per protocol. - Return to GI office in 3 weeks. Procedure Code(s): --- Professional --- 17130, Colonoscopy, flexible; diagnostic, including collection of specimen(s) by brushing or washing,when performed (separate procedure) Diagnosis Code(s): --- Professional --- Z12.11, Encounter for screening for malignantneoplasm of colon K57.30, Diverticulosis of large intestine without perforation or abscess without bleeding CPT copyright 2019 [employer]. All rights reserved. The codes documented in this report are preliminary and upon outside medical sales representative reviewmay be revised to meet current compliance requirements. Naida Almaraz Jeniffer Almaraz M.D. 04/12/2020 9:44:11 AM This report has been electronically signed by the physician. Number of Addenda: 0 Note Initiated On: 04/12/2020 8:43 AM Jeniffer Almaraz MD ENDOSCOPY PROCEDURES Final Result * Dexa Axial Skeleton Bone Density 1 or 2 Site (04/05/2020 10:47 AM WORK CAR OPERATOR) Anatomical Region Laterality Modality Body N/A Other 04/05/2020 10:5 8 AM WORK CAR OPERATOR Impressions 04/05/2020 10:59 AM WORK CAR OPERATOR According to the World Health Organization criteria, based upon the left femoral neck bone mineral density (T score value of -1.1), the patient has low bone mass (osteopenia). General Recommendations: 1. Consider an evaluation for secondary causes of osteoporosis in patients with low bone density. 2. All patients should be counseled on adequate intake of calcium (1200 mg/day), vitamin D (600-800 IU daily) and exercise. 3. The National Osteoporosis Foundation (NOF) guidelines recommend initiating pharmacological therapy, in addition to calcium, vitamin D and exercise, to reduce fracture risk when: a. T-score less than or equal to -2.5 after secondary causes excluded. b. T-score between -1.0 and -2.5 with secondary causes associated with high risk of fracture. c. 10-year probability of hip fracture more than or equal to 3% (based on FRAX score). d. 10-year probability of major osteoporosis related fracture more than or equal to 20% (based on FRAX score). Followup: People with diagnosed cases of osteoporosis or at high risk for fracture should have regular bone mineral density tests. For patients eligible for Medicare, routine testing is allowed once every 2 years. The testing frequency can be increased to one year for patients who have rapidly progressive disease or those who are receiving long-term steroid therapy. Electronically signed by: Marika Huerta 04/05/2020 10:59 AM WORK CAR OPERATOR COMPLETION DATE: 04/05/2020 11:00 AM ORDERING HEALTHCARE PROVIDER: TERRELL LAY DESCRIPTION: DEXA AXIAL SKELETON BONE DENSITY 1 OR MORE SITES CLINICAL INDICATIONS: Z13.820. COMPARISON: None TECHNIQUE: Dual x-ray absorptiometry (DEXA) was performed using 140Fire system. GENERAL GUIDELINES: According to WHO guidelines, a T score of -1.0 or greater is normal, between -1.0 to -2.4 is osteopenia, and -2.5 or less is osteoporosis. Z score (instead of T score) is preferred for pediatric, young adults, premenopausal women and men under age of 50 years. In these patients, a Z score greater than or equal to -2.0 is considered to be in the expected range. FINDINGS: LEFT FEMORAL NECK: T-score -1.1 LEFT TOTAL HIP: T-score -0.5 LUMBAR SPINE: T-score -0.4 In this patient with low bone mass not currently on biphosphonate therapy, the 10 year probability for major osteoporotic fracture is 15% and for hip fracture is 2.0%. According to the World Health Organization, biphosphonate therapy is indicated if 10 year risk for a major osteoporotic fracture is greater than or equal to 20% or the 10 year risk for hip fracture is greater than or equal to 3%. Procedure Note Jeni Sherwood DO - 04/05/2020 COMPLETION DATE: 04/05/2020 11:00 AM ORDERING HEALTHCARE PROVIDER: TERRELL LAY DESCRIPTION: DEXA AXIAL SKELETON BONE DENSITY 1 OR MORE SITES CLINICAL INDICATIONS: Z13.820. COMPARISON: None TECHNIQUE: Dual x-ray absorptiometry (DEXA) was performed using 140Fire system. GENERAL GUIDELINES: According to WHO guidelines, a T score of -1.0 or greater is normal, between -1.0 to -2.4 is osteopenia, and -2.5 or less is osteoporosis. Z score (instead of T score) is preferred for pediatric, young adults, premenopausal women and men under age of 50 years. In these patients, a Z score greater than or equal to -2.0 is considered to be in the expected range. FINDINGS: LEFT FEMORAL NECK: T-score -1.1 LEFT TOTAL HIP: T-score -0.5 LUMBAR SPINE: T-score -0.4 In this patient with low bone mass not currently on biphosphonate therapy, the 10 year probability for major osteoporotic fracture is 15% and for hip fracture is 2.0%. According to the World Health Organization, biphosphonate therapy is indicated if 10 year risk for a major osteoporotic fracture is greater than or equal to 20% or the 10 year risk for hip fracture is greater than or equal to 3%. IMPRESSION: According to the World Health Organization criteria, based upon the left femoral neck bone mineral density (T score value of -1.1), the patient has low bone mass (osteopenia). General Recommendations: 1. Consider an evaluation for secondary causes of osteoporosis in patients with low bone density. 2. All patients should be counseled on adequate intake of calcium (1200 mg/day), vitamin D (600-800 IU daily) and exercise. 3. The National Osteoporosis Foundation (NOF) guidelines recommend initiating pharmacological therapy, in addition to calcium, vitamin D and exercise, to reduce fracture risk when: a. T-score less than or equal to -2.5 after secondary causes excluded. b. T-score between -1.0 and -2.5 with secondary causes associated with high risk of fracture. c. 10-year probability of hip fracture more than or equal to 3% (based on FRAX score). d. 10-year probability of major osteoporosis related fracture more than or equal to 20% (based on FRAX score). Followup: People with diagnosed cases of osteoporosis or at high risk for fracture should have regular bone mineral density tests. For patients eligible for Medicare, routine testing is allowed once every 2 years. The testing frequency can be increased to one year for patients who have rapidly progressive disease or those who are receiving long-term steroid therapy. Electronically signed by: Jeni Sherwood D.O. Terrell Milton MD IM DXA PROCEDURES Final Resu lt * Screening Mammogram Bilateral W Cristobal (04/24/2019 11:01 AM WORK CAR OPERATOR) Anatomical Region Laterality Modality Breast Bilateral Mammography Narrative 04/25/2019 2:48 PM WORK CAR OPERATOR Mammogram Technique: Bilateral Digital Breast Tomosynthesis, Bilateral C-view 2D Screening mammogram. Views obtained: bilateral craniocaudal and bilateral mediolateral oblique. Computer Aided Detection was performed. Mammogram Findings: The present examination has been compared to prior imaging studies performed at [facility] on 11/21/2014, 11/27/2015 and 12/09/2016. There are scattered areas of fibroglandular density. There is no suspicious abnormality in either breast. Impression: Annual screening mammography is recommended. OVERALL FINAL ASSESSMENT: BI-RADS CATEGORY 1: Negative. Procedure Note Bakari Carpio MD - 04/25/2019 Mammogram Technique: Bilateral Digital Breast Tomosynthesis, Bilateral C-view 2D Screening mammogram. Views obtained: bilateral craniocaudal and bilateral mediolateral oblique. Computer Aided Detection was performed. Mammogram Findings: The present examination has been compared to prior imaging studies performed at [facility] on 11/21/2014, 11/27/2015 and 12/09/2016. There are scattered areas of fibroglandular density. There is no suspicious abnormality in either breast. Impression: Annual screening mammography is recommended. OVERALL FINAL ASSESSMENT: BI-RADS CATEGORY 1: Negative. us Self Screening Mammogram IMG MAMMO PROCEDURES Fi nal Result from Last 3 Months or Most Recently Relevant to Health Maintenance Insurance [facility] AETNA MEDICARE GOLD AETNA MEDICARE GOLD MEDICARE SOLUTIONS Advance Directives For more information, please contact: [phone] * Full Code (Latest Code Status on File) Date Activated Date Inactivated Comments 04/12/2020 8:25 AM 04/12/2020 4:12 PM Care Teams Bog Cutter Relationship Specialty Start Date End Date Herve Wilson MD [facility] [place] [address] PCP - General Family Medicine 10/08/23 Cy Mckinnon DO [address] [place] [id number] Medical Oncologist/Chip Mucker Hematology and Oncology 10/05/17
--- OUTSIDE RECORDS SUMMARY | 2024-05-01 02:54 | XMS_ITS | Referral Summary ---
Author Organization [facility] [address] Address [address] [place] [address] Care Team Providers Care Professor Of Forestry Name Role Phone Unavailable Primary Care Provider Unavailabl e Source Comments [facility] [address],non-owned Affiliates and Associated Physician Practices is amultiple site organization consisting of ambulatory clinics and hospital sitesin [place], [place], [place] and [place]. This disclosure is being madepursuant to the Care Everywhere program and may not contain all information available regarding this patient. Last updated 17.[facility] [address] Allergies No known active allergies Medications * [...] 05/23/2012 11:23 AM CDT Plan of Treatment Not on file Advance Directives Documents on File Type Date Recorded Patient Laminator Printed Circuit Boards Expl anation Adv Directive/Living Will/POA 06/20/2012 12:56 PM RECOVERY RX
--- OUTSIDE RECORDS SUMMARY | 2024-05-01 02:54 | XMS_ITS ---
Author Organization [facility] Address [address] [facility] [address] [place] [address] Care Team Providers Care Human Geography Faculty Member Name Role Phone Herve Wilson MD Primary Care Provider UnavailErnestina No Unavailable [phone] Migration, Provider Unavailable Unavailable Allergies Allergen (clinical drug ingredient) Drug/Non Drug Allergy documented on EMR Reaction Allergy Type Onset Date Status montelukast Singulair Unknown Drug Allergy 05/28/2023 Acti ve REASON FOR VISIT EMR-Ta Medications Medication SIG (Take, Route, Frequency, Duration) Notes Start Date End Date Status predniSONE 5 MG Oral 05/28/2023 Act josette Meloxicam 15 MG Oral 05/28/2023 Act josette Trelegy Ellipta 100-62.5-25 mcg Inhalation *Pick strength[facility] from [facility]* 05/28/2023 Active amLODIPine Besylate 5 MG Oral 05/28/2023 Active Levothyroxine Sodium 175 MCG Oral 05/28/2023 Active Wellbutrin SR 200 MG Oral 05/28/2023 Active Topamax 100 MG Oral 05/28/2023 Acti ve Citalopram Hydrobromide 20 MG Oral 05/28/2023 Active Acetaminophen-Codeine #3 300-30 MG Oral 05/28/2023 Active ProAir HFA 108 (90 Base) MCG/ACT Inhalation 05/28/2023 Active buPROPion HCl ER (SR) 200 MG Oral 05/28/2023 Active risperiDONE 1 MG Oral 05/28/2023 Ac tive Omeprazole 40 MG Oral 05/28/2023 Ac tive Alendronate Sodium 70 MG Oral 05/28/2023 Active rOPINIRole HCl 1 MG Oral 05/28/2023 Active Atorvastatin Calcium 20 MG Oral 05/28/2023 Active DULoxetine HCl 60 MG Oral 05/28/2023 Active Topiramate 100 MG Oral 05/28/2023 A ctive Metoprolol Tartrate 25 MG Oral 05/28/2023 Active Social History Sex Assigned At : Social History Observation Description Sex Assigned At Female Encounters Encounter Location Date Provider Diagnosis [place] [id number] [facility] [address] [facility] [address] [place] [address] 07/25/2023 Provider Migration Plan Of Treatment Next Appt Details Provider Name:Ernestina Lange, 05/12/2024 09:45:00 AM, [facility] [facility] [address], [facility] [address], [place], [address], Progress Notes * JHONATHAN FLEMINGOB:1955 (68 yo F)Acc No.[id number]:07/25/2023 Patient: TISHA WHITE :1955 A ge:67 Y S ex:Female Address:[address] [place] [address] Subjective: * Chief Complaints: * E MR-Ta * Medical History: * 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 * Surgical History: A ny surgical history Tonsilectomy/adenoids 03/08/1974Hysterectomy (28055) 03/08/1988 * Hospitalization/Major Diagno stic Procedure: * Family History: U nspecified Relation: Alcohol abuse , Bipolar disorder . M other: Alcohol abuse , Depressive disorder . M aternal Grandfather: Alcohol abuse . M aternal Grandmother: Depressive disorder . * Social History: M igrated Social History: M igrated Social History: Alcohol Intake: None 05/28/2023,Tobacco Years: Current every day smoker 05/28/2023. * Medications: T akingDULoxetine HCl 60 MG Capsule Delayed Release Particles Oral Acetaminophen-Codeine #3 300-30 MG Tablet Oral ProAir HFA 108 (90 Base) MCG/ACT Aerosol Solution Inhalation Topamax 100 MG Tablet Oral predniSONE 5 MG Tablet Oral Alendronate Sodium 70 MG Tablet Oral rOPINIRole HCl 1 MG Tablet Oral Omeprazole 40 MG Capsule Delayed Release Oral buPROPion HCl ER (SR) 200 MG Tablet Extended Release 12 Hour Oral Topiramate 100 MG Tablet Oral Citalopram Hydrobromide 20 MG Tablet Oral Metoprolol Tartrate 25 MG Tablet Oral risperiDONE 1 MG Tablet Oral Atorvastatin Calcium 20 MG Tablet Oral amLODIPine Besylate 5 MG Tablet Oral Wellbutrin SR 200 MG Tablet Extended Release 12 Hour Oral Levothyroxine Sodium 175 MCG Tablet Oral Meloxicam 15 MG Tablet Oral Trelegy Ellipta 100-62.5-25 mcg Aerosol Powder Breath Activated Inhalation , Notes to Pharmacist: *Pick strength-form from [facility]*Taking DULoxetine HCl 60 MG Capsule Delayed Release Particles Oral Taking Acetaminophen-Codeine #3 300-30 MG Tablet Oral Taking ProAir HFA 108 (90 Base) MCG/ACT Aerosol Solution Inhalation Taking Topamax 100 MG Tablet Oral Taking predniSONE 5 MG Tablet Oral Taking Alendronate Sodium 70 MG Tablet Oral Taking rOPINIRole HCl 1 MG Tablet Oral Taking Omeprazole 40 MG Capsule Delayed Release Oral Taking buPROPion HCl ER (SR) 200 MG Tablet Extended Release 12 Hour Oral Taking Topiramate 100 MG Tablet Oral Taking Citalopram Hydrobromide 20 MG Tablet Oral Taking Metoprolol Tartrate 25 MG Tablet Oral Taking risperiDONE 1 MG Tablet Oral Taking Atorvastatin Calcium 20 MG Tablet Oral Taking amLODIPine Besylate 5 MG Tablet Oral Taking Wellbutrin SR 200 MG Tablet Extended Release 12 Hour Oral Taking Levothyroxine Sodium 175 MCG Tablet Oral Taking Meloxicam 15 MG Tablet Oral Taking Trelegy Ellipta 100-62.5-25 mcg Aerosol Powder Breath Activated Inhalation , Notes to Pharmacist: *Pick strength-form from [facility] for eRX* * Allergies: S ingulair: Allergy - Onset Date 05/28/2023 Objective: * Vitals: * Physical Examination: Assessment: Plan: * Treatment: * Procedure Codes: * true * Date: Generated for Fadi Koroma/Bal on: 0 05/01/2024 02:54 AM WOOD GETTER
--- OUTSIDE RECORDS SUMMARY | 2024-05-01 02:54 | XMS_ITS | Patient Health Summary ---
Author Organization [facility] [place] Address [address] [place] [address] Care Team Providers Care Cheese Tester Name Role Phone Unavailable Primary Care Provider Unavailabl e Note from [facility],non-owned Affiliates and Associated Physician Practices is amultiple site organization consisting of ambulatory clinics and hospital sitesin [place], [place], [place] and [place]. This disclosure is being madepursuant to the Care Everywhere program and may not contain all information available regarding this patient. Last updated 17.[facility] [place] Allergies No known active allergies Medications * Be aware that medications may not be up to date on this document. Alwaysverify current medications with the patient. * topiramate (TOPAMAX) 100 MG tablet Take 100 mg by mouth 2 times daily. * citalopram (CELEXA) 40 MG tablet Take 40 mg by mouth once daily. * risperiDONE (RISPERDAL) 2 MG tablet Take 2 mg by mouth once daily. * buPROPion SR 12hr (WELLBUTRIN SR) 200 MG tablet Take 200 mg by mouth 2 times daily. * leflunomide (ARAVA) 20 MG tablet Take 20 mg by mouth once daily. * diclofenac sodium (VOLTAREN) 75 MG tablet Take 75 mg by mouth once daily. * esomeprazole (NEXIUM) 40 MG capsule Take 40 mg by mouth daily before breakfast. * levothyroxine (LEVOXYL) 200 MCG tablet Take 200 mcg by mouth daily before breakfast. * simvastatin (ZOCOR) 40 MG tablet Take 40 mg by mouth at bedtime. * albuterol-ipratropium (COMBIVENT) 18-103 MCG/ACT inhaler Inhale 2 Puffs by mouth 4 times daily as needed. * Abatacept (ORENCIA IV) 1,000 mg by Intravenous route as directed. 03/09/11 start first infusion and repeat in 2 weeks and then 4 weeks and then every 4 weeks * oxybutynin CR 24hr (DITROPAN-XL) 10 MG tablet Take 10 mg by mouth 2 times daily. * ibuprofen (ADVIL; MOTRIN) 100 MG/5ML SUSP suspension Take 200 mg by mouth every 6 hours as needed. Indications: Rheumatoid Arthritis * TRAMADOL HCL ER PO Take 1 Tab by mouth as needed. * predniSONE (DELTASONE) 10 MG tablet Take 10 mg by mouth once daily. Active Problems Problem Noted Date Diagnosed Date Rheumatoid arthritis 02/22/2012 Immunizations * INFLUENZA VACCINE, QUADR. (FLUZONE; FLULAVAL; FLUARIX; AFLURIA QUADRIVALENT; 6MO+), 0.5 ML (IIV4)(Given 01/05/2020) Social History Tobacco Use Types Packs/Day Years [...]
--- OUTSIDE RECORDS SUMMARY | 2024-05-01 02:54 | XMS_ITS | Clinical Summary ---
Author Organization [employer] Address [address] [facility] Attn: Epic Prelude ADT [place] [address] Care Team Providers Care Or First Assist Registered Nurse Name Role Phone Unavailable Primary Care Provider Unavailabl e Social History Tobacco Use Types Packs/Day Years Used Date Smoking Tobacco: Never Assessed Comments Unknown Sex and Gender Information Value Date Recorded Sex Assigned at Not on file Legal Sex Female 4:37 AM STEVEDORE HOLD Gender Identity Not on file Sexual Orientation Not on file Plan of Treatment Health Maintenance Due Date Last Done Comments DTAP/TDAP/TD VACCINES (1 - Tdap) 08/18/1974 BREAST CANCER SCREENING 1995 COLORECTAL SCREENING 08/18/2000 Colorectal Cancer Screening 08/18/2000 FIT-DNA Q 3 years 08/18/2000 FIT/FOBT Q 1 year 08/18/2000 Flex Sig/CT Colonography Q 5 years 08/18/2000 PNEUMOCOCCAL VACCINE 65+ YEARS (1 of 1 - PCV) 08/19/19 06 ZOSTER VACCINE (1 of 2) 08/18/2005 OSTEOPOROSIS SCREENING 08/18/2020 INFLUENZA VACCINE (#1) 2023 RSV VACCINE (60+ or ) (1 - 1-dose 75+ series) 08/18/2030
--- OUTSIDE RECORDS SUMMARY | 2024-05-01 02:54 | XMS_ITS | Referral Summary ---
Author Organization [facility] Address [address] [place] [address] Care Team Providers Care Community Relations Assistant Name Role Phone Pratibha Cy David DO Unavailable [phone] Herve Wilson MD Primary Care Provider [phone] Encounters Date Type Department Care Team Description 02/18/2024 Telephone [facility] [address] [place] [address] Jeronimo Negrete RPh 02/17/2024 Telephone [facility] Rhe[facility] at [facility] [address] [place] [address] Suzanne Zaman MD from Last 3 Months Allergies Active Allergy Reactions Criticality Noted Date [...] oral route 3 times every day 0 02/22/[address] (NexIUM) 40 mg [...] are complete. Avoid live-vaccines unless reviewed with nurseryman assistant first. Osteopenia 10/08/2023 Assessment & Plan (10/08/2023 11:08 AM CDT): On fosamax since 2020. Due for repeat DEXA. Will do at [facility]. You need 1200mg calcium daily between supplements [...] (10/30/2021): Added automatically from request for surgery [id number] Mechanical complication of e lectrode lead of implanted electronic neurostimulator of peripheral nerve 10/30/2021 Overview (10/30/2021): Added automatically from request for surgery [id number] Stress incontinence 07/04/2020 Overview (07/04/2020): Added automatically from request for surgery [id number] Primary nocturnal enuresis 07/04/2020 Overview (07/04/2020): Added automatically from request for surgery [id number] Dysphagia 03/27/2020 Overview (03/27/2020): Added automatically from request for surgery [id number] Special screening for malignant neoplasms, colon 03/27/2020 Overview (03/27/2020): Added automatically from request for surgery [id number] Anemia 02/22/2019 Overview (03/06/2024): Problems with anemia [...] (06/12/2016): Obesity Rheumatoid arthritis 02/22/2012 Overview (03/06/2024): Immunizations Immunization Administration Dates Next Due Flucelvax [...] Pneumococcal Polysaccharide PPV23 03/18/2012 ZOSTER Recombinant 03/24/2020,01/05/2020 Social History Tobacco Use Types Packs/Day Years [...] file Legal Sex Female 9:08 AM WORK DISTRIBUTOR Gender Identity Female 01/10/2021 2:50 PM CDT Sexual Orientation Not on file 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 Not on file Not on file Not on file Last Filed Vital Signs [...] 10/08/2023 9:39 AM CDT Plan of Treatment Not on file Medical Devices Implanted Type Area Porter Baggage Device Identifier Shelf Expiration Date Model / Serial / Lot Medtronic Neuro [id number] Interstim Ii 2inx1.7in 4 Electrode Public Speaking Professor Sacral Nerve - [id number] - [id number] Implanted:Qty: 1 on 07/23/2020 by Husam Morales MD at [facility] Neurostimulator Right: Buttocks Medtronic Inc 07/03/2021 [id number] / [id number] / Description:Sub Q upper righ t buttocks [employer] [id number] Interstim 28cm Quadripolar Mri Archives Director Neurostimulator - Sn/A - [id number] Implanted:Qty: 1 on 07/23/2020 by Husam Morales MD at [facility] Neurostimulator Right: Lumbar-Sac ral Spine Medtronic Inc 10/22/2021 [id number] / N/A / [id number] Description:Right Sacral-3 F oramin Medtronic Inc Generator Neurostimulator Bowel Bladder Recharge Free Interstim X [id number] - [id number] - [id number] Implanted:Qty: 1 on 12/02/2021 by Husam Morales MD at [facility] N/A: Buttocks Medtronic Inc 04/21/2023 [id number] / [id number] / Medtronic Inc Interstim 28cm Quadripolar Mri Archives Director Neurostimulator [id number] - [id number] Implanted:Qty: 1 on 12/02/2021 by Husam Morales MD at [facility] N/A: Sacrum Medtronic Inc 02/12/2023 [id number] / / [id number] Procedures Procedure Name Priority Date/Time Associated Diagnosis Comments COLONOSCOPY 04/12/2020 8:43 AM WORK DISTRIBUTOR DEXA AXIAL SKELETON BONE DENSITY 1 OR MORE SITES Schedule Routine, Read Routine (OP Routine) 04/05/2020 10:47 AM WORK DISTRIBUTOR Encounter for screening for osteoporosis SCREENING MAMMOGRAM BILATERAL W CRISTOBAL Schedule Routine, Read Routine (OP Routine) 04/24/2019 11:01 AM WORK DISTRIBUTOR Encounter for screening mammogram for malignant neoplasm of breast from Last 3 Months or Most Recently Relevant to Health Maintenance Results * COLONOSCOPY (04/12/2020 8:43 AM WORK DISTRIBUTOR) Anatomical Region Laterality Modality Other Narrative Procedure Note Jeniffer Almaraz MD - 04/12/2020 8:43 AM CST [facility] Patient Name: Alisha Arguello Procedure Date: 04/12/2020 8:43 AM Date of : 1955 Admit Type: Outpatient Age: 64 Gender: Female Note Status: Finalized Attending MD: Jeniffer Almaraz M.D. Procedure Date: 04/12/2020 Procedure: Colonoscopy Indications: Screening for colorectal malignant neoplasm Providers: Jeniffer Almaraz M.D., DEEP Stephens (Anesthesia Staff), Nisreen Chavez RN Referring MD: Terrell Hdz M.D. Medicines: Propofol per Anesthesia Complications: No [...] 3 weeks. Procedure Code(s): --- Professional --- 24501, Colonoscopy, flexible; diagnostic, including collection of specimen(s) by brushing or washing,when performed (separate procedure) Diagnosis Code(s): --- Professional --- Z12.11, Encounter for screening for malignantneoplasm of colon K57.30, Diverticulosis of large intestine without perforation or abscess without bleeding CPT copyright 2019 [employer]. All rights reserved. The codes documented in this report are preliminary and upon certified medical coder reviewmay be revised to meet current compliance requirements. Naida Peres Sung Jeniffer Almaraz M.D. 04/12/2020 9:44:11 AM This report has been electronically signed by the physician. Number of Addenda: 0 Note Initiated On: 04/12/2020 8:43 AM Jeniffer Almaraz MD ENDOSCOPY PROCEDURES Final Result * Dexa Axial Skeleton Bone Density 1 or 2 Site (04/05/2020 10:47 AM WORK DISTRIBUTOR) Anatomical Region Laterality Modality Body N/A Other 04/05/2020 10:5 8 AM WORK DISTRIBUTOR Impressions 04/05/2020 10:59 AM WORK DISTRIBUTOR According to the World Health Organization criteria, [...] by: Marika Huerta 04/05/2020 10:59 AM WORK DISTRIBUTOR COMPLETION DATE: 04/05/2020 11:00 AM ORDERING HEALTHCARE PROVIDER: TERRELL HDZ STUDY DESCRIPTION: DEXA AXIAL SKELETON BONE DENSITY 1 OR MORE SITES CLINICAL INDICATIONS: Z13.820. COMPARISON: None TECHNIQUE: Dual x-ray absorptiometry (DEXA) was performed using Hologic system. GENERAL GUIDELINES: According to WHO guidelines, [...] 04/05/2020 11:00 AM ORDERING HEALTHCARE PROVIDER: TERRELL HDZ STUDY DESCRIPTION: DEXA AXIAL SKELETON BONE DENSITY 1 OR MORE SITES CLINICAL INDICATIONS: Z13.820. COMPARISON: None TECHNIQUE: Dual x-ray absorptiometry (DEXA) was performed using [email or web address] system. GENERAL GUIDELINES: According to WHO guidelines, [...] Electronically signed by: Jeni Sherwood D.O. Terrell Hdz MD [facility] DXA PROCEDURES Final Resu lt * Screening Mammogram Bilateral W Cristobal (04/24/2019 11:01 AM WORK DISTRIBUTOR) Anatomical Region Laterality Modality Breast Bilateral Mammography Narrative 04/25/2019 2:48 PM WORK DISTRIBUTOR Mammogram Technique: Bilateral Digital Breast Tomosynthesis, Bilateral C-view 2D Screening mammogram. Views obtained: bilateral craniocaudal and bilateral mediolateral oblique. Computer Aided Detection was performed. Mammogram Findings: The present examination has been compared to prior imaging studies performed at [facility] on 11/21/2014, 11/27/2015 and 12/09/2016. There are [...] compared to prior imaging studies performed at [facility] on 11/21/2014, 11/27/2015 and 12/09/2016. There are scattered areas of fibroglandular density. There is no suspicious abnormality in either breast. Impression: Annual screening mammography is recommended. OVERALL FINAL ASSESSMENT: BI-RADS CATEGORY 1: Negative. us Self Screening Mammogram IMG MAMMO PROCEDURES Fi nal Result from Last 3 Months or Most Recently Relevant to Health Maintenance Insurance [facility] ADVANTAGE [facility] AETNA MEDICARE GOLD AETNA MEDICARE GOLD MEDICARE SOLUTIONS Advance Directives For more information, please contact: [phone] * Full Code (Latest Code Status on File) Date Activated Date Inactivated Comments 04/12/2020 8:25 AM 04/12/2020 4:12 PM Care Teams Community Relations Assistant Relationship Specialty Start Date End Date Herve Wilson MD [address] [place] [address] PCP - General Family Medicine 10/08/23 Cy Mckinnon DO [address] [place] [id number] Medical Oncologist/Wardrobe Specialty Worker Hematology and Oncology 10/05/17
--- OUTSIDE RECORDS SUMMARY | 2024-05-01 02:55 | XMS_ITS | Data Portability ---
Author Organization [place] - [facility] [address], Main Office Address [address] [place] [address] Assessment Encounter Date Assessment Date Assessment LastModified by Organization Details LastModified Time 04/08/2023 04/08/2023 Assessment: Nicotine smoke: 1 ppd 1970-present (quit 20 years in between) = 33 pack years Cough Dyspnea JANET off CPAP Hypertension Plan: The following were reviewed and explained to the patient: primary care/referral note PFT 02/16/17 nl FEV1/FVC, FEV1 1.83 L (77%), TLC 4.10 L (86%), RV 1.56 L (86%), DLCO 58%, DLCO/VA 113% PET/CT 07/13/17 14 mm LLL nodule without increased activity Chest CT 10/06/17 resolved left costophrenic opacity, no nodules Chest CT 11/24/18 no nodules Patient declined restart of CPAP for JANET. Nicotine cessation counseling provided for 4 minutes. Bonsall for quitting nicotine include getting ready, getting support and encouragement, learning new skills and behaviors and being prepared to handle slips. Tips for dealing with cravings provided. Prevention of subsequent illnesses from nicotine addiction discussed. Comorbidities include but are not limited to hypertension, cerebrovascular disease, coronary heart disease, congestive heart failure, hyperlipidemia, COPD/asthma, peptic ulcer disease, esophagitis/gastri tis, and osteoporosis. Therapy options offered include: Quitting by total abstinence Receiving nicotine replacement therapy Undergoing hypnosis Filling a bupropion or varenicline prescription Enrolling in Quit For Life program Registering at www.quitline.com Making a call to 5-004-LESL-NOW ( ). A strong, clear, personalized message was given to the patient to quit smoking. The patient was urged to set a quit date. We discussed patient's barriers to quitting and I will be of assistance when patient is ready to quit. I encouraged patient to inform friends and family of plans to quit with a request for support. I encouraged the patient to remove all cigarettes from the environment. We reviewed any previous quit attempts and lessons learned from them. I encouraged total abstinence from smoking and advised the patient that drinking alcohol and/or associating with other smokers are associated with failure or relapse. Patient can enroll in [facility]'s smoking cessation class through Geraldine Escobedo RN at . Enrollment is free and classes are held every wednesday of the month from 1:30 pm to 2:30 pm at the conference room next to the cafeteria on the ground floor. The [employer] recommends annual screening for lung cancer with low-dose computed tomography (LDCT) for people aged 50 to 80 years old who smoke or formerly smoked and have a 20-year or greater pack-year history. Screening is no longer discontinued even when a person has not smoked for 15 years. LDCT scan ordered. Cough/Dyspnea workup will be done as follows: Respiratory allergen panel for [facility] Serum IgE Serum total IgG, IgG1, IgG2, IgG3, IgG4 [id number] n phenotype and level TB stimulated gamma interferon B-type natriuretic peptide (BNP) Eosinophil count Methacholine challenge testing Continue Albuterol HFA as needed. Continue Trelegy Ellipta 100/62.5/25 mcg 1 inhalation daily. Gargle after use. The patient does not know how to accurately administer the inhalers. Today, the patient was shown how to take these medications. The proper technique for delivering these medications was instructed. The patient expressed a clear understanding and demonstrated back how to use these medications. Without the proper technique, the patient will not reap the benefits of these medications as the contents will not reach the lower airways as intended to be. Adherence to therapy is advocated. Nonadherence may lead to treatment failure, further progression of the condition, and other complications. Hospitals admissions are often the result of individuals not taking prescription medications accurately. Alternatively, greater adherence to medication regimens have shown to lower rates of hospitalization and decrease total medical costs in patients with chronic medical conditions. Advocated influenza vaccination annually and pneumonia vaccination SURJIT. Advocated weight loss through diet and exercise. Patient's ideal body weight according to height and gender is up to 120 lbs. Encouraged patient to adjust caloric intake to maintain/achieve ideal body weight, emphasizing on fruits, vegetables, whole grains, and fat-free or low-fat products. These include lean meats, poultry, fish, beans, eggs, and nuts and foods that are low in saturated fats, trans-fats, cholesterol, salt (sodium), and glycemic index. Stressed the importance of regular exercise up to the patient's capacity limits. In this case, we recommend 20 min daily walking, 2 days a week of resistance training. Patient to monitor BP daily and bring records to PCP for further management. Follow-up: 1 week after methacholine challenge testing and LDCT Not available 04/08/2023 11:14:31 06/10/2023 06/10/2023 Assessment: Nicotine smoke: 1 ppd 1970-present (quit 20 years in between) = 33 pack years Methacholine (+) mod persistent asthma JANET, declined CPAP Plan: The following were reviewed and explained to the patient: primary care/referral note PFT 02/16/17 nl FEV1/FVC, FEV1 1.83 L (77%), TLC 4.10 L (86%), RV 1.56 L (86%), DLCO 58%, DLCO/VA 113% PET/CT 07/13/17 14 mm LLL nodule without increased activity Chest CT 10/06/17 resolved left costophrenic opacity, no nodules Chest CT 11/24/[address] 04/16/23 no nodules Lab data 04/08/23 multiple environmental allergies Methacholine challenge 06/10/23 (+) methacholine challenge @ level 4 Patient declined restart of CPAP for JANET. Nicotine cessation counseling provided. Bonsall for quitting nicotine include getting ready, getting support and encouragement, learning new skills and behaviors and being prepared to handle slips. Tips for dealing with cravings provided. Prevention of subsequent illnesses from nicotine addiction discussed. Comorbidities include but are not limited to hypertension, cerebrovascular disease, coronary heart disease, congestive heart failure, hyperlipidemia, COPD/asthma, peptic ulcer disease, esophagitis/gastri tis, and osteoporosis. Therapy options offered include: Quitting by total abstinence Receiving nicotine replacement therapy Undergoing hypnosis Filling a bupropion or varenicline prescription Enrolling in Quit For Life program Registering at [email or web address] Making a call to 5-899-SAIR-NOW ( ). A strong, clear, personalized message was given to the patient to quit smoking. The patient was urged to set a quit date. We discussed patient's barriers to quitting and I will be of assistance when patient is ready to quit. I encouraged patient to inform friends and family of plans to quit with a request for support. I encouraged the patient to remove all cigarettes from the environment. We reviewed any previous quit attempts and lessons learned from them. I encouraged total abstinence from smoking and advised the patient that drinking alcohol and/or associating with other smokers are associated with failure or relapse. Patient can enroll in [facility]'s smoking cessation class through Geraldine Escobedo RN at . Enrollment is free and classes are held every wednesday of the month from 1:30 pm to 2:30 pm at the conference room next to the cafeteria on the ground floor. The [employer] recommends annual screening for lung cancer with low-dose computed tomography (LDCT) for people aged 50 to 80 years old who smoke or formerly smoked and have a 20-year or greater pack-year history. Screening is no longer discontinued even when a person has not smoked for 15 years. General information on bronchial asthma was covered. Educational video was shown. Peak flow meter usage instructed. Patient's personal best peak flow today is 230 L/min. Patient will monitor peak flow daily at a set time and again when symptoms of chest tightness, cough, dyspnea or wheezing occur. Patient will bring peak flow record to subsequent visits. The color of a traffic light will guide the patient's use of asthma medications: (1) Green means Go Zone. Peak flow: above 80% of personal best. Symptoms: Breathing is good, no cough or wheeze present, patient sleeps through the night and can work and play. Plan: Patient will continue the use of preventative medicine. (2) Yellow means Caution Zone. Peak flow: between 50-80% of personal best. Symptoms: Presence of first signs of a cold, exposure to known trigger, mild wheeze, tight chest and coughing especially night. Plan: Patient will add quick-relief medicine to preventative medicine. (3) Red means Danger Zone. Peak flow: below 50% of personal best. Symptoms: Asthma is getting worse quickly and medicine is not helping, breathing is hard and fast, nose opens widely when breathing, ribs showing when breathing, and patient cannot speak in full sentences. Plan: Patient will get help from a physician immediately. Continue Albuterol HFA as needed. Continue Trelegy Ellipta 100/62.5/25 mcg 1 inhalation daily. Gargle after use. The patient does not know how to accurately administer the inhalers. Today, the patient was shown how to take these medications. The proper technique for delivering these medications was instructed. The patient expressed a clear understanding and demonstrated back how to use these medications. Without the proper technique, the patient will not reap the benefits of these medications as the contents will not reach the lower airways as intended to be. Adherence to therapy is advocated. Nonadherence may lead to treatment failure, further progression of the condition, and other complications. Hospitals admissions are often the result of individuals not taking prescription medications accurately. Alternatively, greater adherence to medication regimens have shown to lower rates of hospitalization and decrease total medical costs in patients with chronic medical conditions. Advocated influenza vaccination annually and pneumonia vaccination SURJIT. Advocated weight loss through diet and exercise. Patient's ideal body weight according to height and gender is up to 120 lbs. Encouraged patient to adjust caloric intake to maintain/achieve ideal body weight, emphasizing on fruits, vegetables, whole grains, and fat-free or low-fat products. These include lean meats, poultry, fish, beans, eggs, and nuts and foods that are low in saturated fats, trans-fats, cholesterol, salt (sodium), and glycemic index. Stressed the importance of regular exercise up to the patient's capacity limits. In this case, we recommend 20 min daily walking, 2 days a week of resistance training. Patient to monitor BP daily and bring records to PCP for further management. Follow-up: 1 year, June 2024 Not available 06/10/2023 13:04:05 Plan of Treatment Reminders Order Date Submit Date Provider Last Modified By Organization Details Last Modified Time Details Appointments Establish ed Patient 30 2024 10:00A Anna Wilson MD Not available Not available Not available Lab alpha-1-a ntitrypsi n (aat) phenotype , serum 2023 024 [email or web address] 5 [facility] ([facility]), [address] [place], [address], 07/20/2023 10:54:35 BNP (B-type natriuret ic peptide), serum or plasma 2023 024 CHRIS [facility] (Lab), [address] [place], [address], 04/08/2023 14:15:37 ige, total, serum 2023 024 5 [facility] (Lab), [address] [place], [address], 07/20/2023 10:54:35 tb (M tuberculo sis), ifn-gamma ne, blood 2023 024 [email or web address] 5 [facility] (Lab), [address] [place], [address], 07/20/2023 10:54:35 eosinophi l count, manual, blood (OBS) 2023 024 [email or web address] 5 [facility] (Lab), [address] [place], [address], 07/20/2023 10:54:[address] 1+2+3+4, serum [email or web address] [place] [address] (Lab), [address] [place], [address], 07/20/2023 10:54:35 respirato ry allergen panel - [facility] a 2023 024 [email or web address] 5 [facility] (Lab), [address] [place], [address], 07/20/2023 10:54:35 respirato ry allergen panel - [facility] b [email or web address] [place] [address] (Lab), [address] [place], [address], 07/20/2023 10:54:35 Referral None recorded. Procedures None recorded. Surgeries None recorded. Imaging LDCT, chest, for lung cancer screening [address] ([facility]), [address] [place], [address], 06/10/2023 12:55:42 LDCT, chest, for lung cancer screening - Nicotine smoke: 1 ppd 1970-pres ent (quit 20 years in between) = 33 pack years; no auth required 2023 024 [facility] ([facility]), [address] [place], [address], 04/16/2023 11:40:22 Medication Orders albuterol sulfate HFA 90 mcg/actua tion aerosol inhaler 2023 024 [facility]/Pharmacy #[id number], [address], [place], [address], 06/10/2023 12:55:46 Trelegy Ellipta 100 mcg-62.5 mcg-25 mcg powder for inhalatio n 2023 024 [facility]/Pharmacy #[id number], [address], [place], [address], 06/10/2023 12:55:46 Patient TargetsNo targets recorded. Patient Instructions Encounter Date Encounter Id Patient Instructions Last Modified By Organization Details Last Modified Time 04/08/2023 [id number] methacholine challenge* EXETER Not available 06/11/2023 12:37:59 06/10/2023 [id number] complete PFT w/ post bronchodilator spirometry* [facility] Not available 06/10/2023 12:55:42 Reason for Referral None Reported. Results Created Date Observation Date Name Description Value Unit Range Abnormal Flag Note LastModifiedBy Organization Detail LastModifiedTime 04/13/19 24 04/19/2016 polys omnog radha, split night No observ ation record ed. BARCODE Not Available 2023 14:28:14 04/13/19 24 02/16/2017 compl ete PFT w/ post [facility] hodil ator zev metry * No observ ation record ed. BARCODE Not Available 2023 14:28:15 04/16/19 24 04/16/2023 LDCT, chest , for lung yanelis pierce No observ ation record ed. [email or web address] [place] [address] [address] [place], [address], 04/16/2023 14:57:37 06/11/19 24 06/10/2023 metha choli ne chall enge* No observ ation record ed. BARCODE [facility] ([facility]) [address] [place], [address], 06/11/2023 12:37:59 Result Notes None recorded. Problems Name Problem SNOMED Code Status Onset Date Resolution Date Notes Provider Name and Address Organization Details Recorded Time Bipolar disorder 19337400 Active Not Available [facility] 3 07:30:17 Gastroeso phageal reflux disease 934506382 Active Not Available [facility] 3 07:30:17 Restless legs 54782163 Active Not Available [facility] 3 07:30:17 Depressiv e disorder 45064242 Active Not Available [facility] 3 07:30:17 Arthritis 9421766 Active Not Available [facility] 3 07:30:18 Hypoxemia 028978460 Active nocturnal Not Available [facility] 3 07:30:18 Body mass index 40+ - severely obese 475938245 Active 2016 Not Available [facility] 3 07:30:18 Hypothyro idism 56693863 Active Not Available [facility] 3 07:30:18 Obesity 396215322 Active Not Available [facility] 3 07:30:18 Obstructi ve sleep apnea syndrome 87342439 Active Not Available [facility] 3 07:30:18 Smoker 32458700 Active 2023 Eduardo Wilson MD [address] [facility], [place], [address] , [facility] [employer] [facility] 4 11:05:46 Moderate persisten t asthma 402511425 Active 2023 Eduardo Wilson MD [address] [facility], [facility] [address], [place], [address] , [facility] [employer] [facility] 4 12:44:55 Notes:Medical History: Bipol ar depression Rhinitis to multiple environmental allergens IgE 191 IU/mL Eosinophils 230/uL AAT PiMM 177 mg% Methacholine (+) mod persistent asthma Obesity with OSAHS, off CPAP Hypothyroidism Hyperlipidemia Hypertension 3.9 cm thoracic aorta Hiatal hernia with THOMAS Urge urinary incontinence Restless legs Thoracic spondylosis/ankylosis Procedure History: Partial thyroidectomy 1973 T&A 1974 THERESE-BSO for fibroids 1986 Right CTS release surgery 1987 Left CTS release surgery 1988 Bladder suspension 1992 Anterior cervical discectomy fusion (ACDF) 1996 Esophageal dilatations 3595-1314 Left knee replacement 2005 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 Procedures Surgical History None recorded. Imaging Results Imaging Date Name Status LastModified by Organization Details LastModified Time 04/19/2016 polysomnogram, split night completed [facility] Information not available 04/13/2023 14:28:14 02/16/2017 complete PFT w/ post bronchodilator spirometry* completed [facility] Information not available 04/13/2023 14:28:15 04/16/2023 LDCT, chest, for lung cancer screening completed [address] [place], [address], 04/16/2023 14:57:37 06/10/2023 methacholine challenge* completed [facility] ([facility]) [address] [place], [address], 06/11/2023 12:37:59 Procedure Notes None recorded. Medical Equipment None Reported. Allergies Allergen ID Allergen Name Allergen Category Reaction Reaction Severity Criticality Documentation Date Start Date Code Code System Note Provider Name and Address Organization Details Recorded Time 03360 Singulair medicatio n Not available Not available Not available 05/06/2022 17225 9 RxNorm Not Available [facility] 3 07:36:29 Medications Name Sig Start Date Stop Date Status Note LastModified by Organization Details LastModified Time amoxicillin 500 mg capsule TK 1 C PO QID 04/26 completed Not Available Not Available Not Available furosemide 40 mg tablet active Not Available Not Available Not Available levothyroxi ne 175 mcg tablet TAKE 1 TABLET BY MOUTH EVERY DAY IN THE MORNING active Not Available Not Available No t Available neomycin-po lymyxin-hyd rocort 3.5 mg/mL-10,00 0 unit/mL-1 % ear solution active Not Available Not Available Not Available potassium chloride ER 10 mEq capsule,ext ended release active Not Available Not Available Not Available prednisone 10 mg tablet Take by oral route. active Not Available Not Available No t Available oxybutynin chloride ER 15 mg tablet,exte nded release 24 hr TAKE 1 TABLET BY MOUTH TWICE A DAY 04/08 completed Not Available Not Available Not Available atorvastati n 20 mg tablet TAKE 1 TABLET BY MOUTH EVERY DAY active Not Available Not Available No t Available ropinirole 1 mg tablet TAKE 1 TABLET BY MOUTH EVERYDAY AT BEDTIME active Not Available Not Available No t Available albuterol sulfate 2.5 mg/3 mL (0.083 %) solution for nebulizatio n USE 3 ML VIA NEBULIZER FOUR TIMES DAILY active Not Available Not Available No t Available citalopram 40 mg tablet TAKE 1 TABLET BY MOUTH EVERY DAY 04/08 completed Not Available Not Available Not Available oxybutynin chloride ER 10 mg tablet,exte nded release 24 hr TAKE 1 TABLET BY MOUTH DAILY 04/08 completed Not Available Not Available Not Available azithromyci n 250 mg tablet 07/30 completed Not Available Not Available Not Available hydrocodone 5 mg-acetamin ophen 325 mg tablet active Not Available Not Available No t Available meloxicam 15 mg tablet TAKE 1 TABLET BY MOUTH EVERY DAY active Not Available Not Available No t Available sucralfate 1 gram tablet 07/30 completed Not Available Not Available Not Available prednisone 20 mg tablet active Not Available Not Available Not Available alendronate 70 mg tablet TAKE 1 TABLET BY MOUTH ONCE A WEEK active Not Available Not Available No t Available prednisone 5 mg tablet TAKE 1 TABLET BY MOUTH EVERY DAY active Not Available Not Available No t Available clindamycin HCl 150 mg capsule TAKE FOUR CAPSULES BY MOUTH 1 HOUR BEFORE APPOINTME NT 04/02 completed Not Available Not Available Not Available potassium chloride ER 10 mEq tablet,exte nded release 04/08 completed Not Available Not Available Not Available oxcarbazepi ne 300 mg tablet TK 1 T PO TID 07/30 completed Not Available Not Available Not Available acetaminoph en 300 mg-codeine 30 mg tablet TAKE 1 TABLET BY MOUTH EVERY 4 HOURS NEEDED FOR PAIN 04/08 completed Not Available Not Available Not Available amlodipine 5 mg tablet TAKE 1 TABLET BY MOUTH EVERY DAY active Not Available Not Available No t Available ciprofloxac in 500 mg tablet 07/30 completed Not Available Not Available Not Available sulfamethox azole 800 mg-trimetho prim 160 mg tablet TAKE 1 TABLET TWICE A DAY FOR 5 DAYS 04/08 completed Not Available Not Available Not Available omeprazole 40 mg capsule,del ayed release TAKE 1 CAPSULE BY MOUTH EVERY DAY 30 MIN BEFORE MORNING MEAL active Not Available Not Available No t Available leflunomide 20 mg tablet TAKE 1 TABLET BY MOUTH EVERY DAY active Not Available Not Available No t Available tramadol 50 mg tablet Take 1 tablet every 6 hours by oral route as directed. 07/30 completed Not Available Not Available Not Available risperidone 2 mg tablet TAKE 1 TABLET BY MOUTH EVERYDAY AT BEDTIME 04/08 completed Not Available Not Available Not Available citalopram 20 mg tablet TAKE 1 TABLET BY MOUTH EVERY DAY active Not Available Not Available No t Available amlodipine 10 mg tablet TAKE 1 TABLET BY MOUTH EVERY DAY 04/08 completed Not Available Not Available Not Available cephalexin 500 mg capsule TAKE 1 CAPSULE BY MOUTH FOUR TIMES A DAY 04/02 completed Not Available Not Available Not Available cyanocobala min (vit B-12) 1,000 mcg/mL injection solution Inject 1 mL every month by intramusc ular route. active Not Available Not Available No t Available telmisartan 40 mg tablet TK 1 T PO QD 07/30 completed Not Available Not Available Not Available ferrous sulfate 325 mg (65 mg iron) tablet TK 1 T PO BID 04/26 completed Not Available Not Available Not Available esomeprazol e magnesium 40 mg capsule,del ayed release TK ONE C PO QD 04/26 completed Not Available Not Available Not Available lisinopril 10 mg tablet 07/30 completed Not Available Not Available Not Available lansoprazol e 30 mg capsule,del ayed release TK 1 C PO QD 07/30 completed Not Available Not Available Not Available telmisartan 80 mg tablet TK 1 T PO QD 07/30 completed Not Available Not Available Not Available Advair Diskus 500 mcg-50 mcg/dose powder for inhalation INHALE 1 PUFF BY MOUTH TWICE DAILY DIRECTED 07/30 completed Not Available Not Available Not Available nitroglycer in 0.4 mg sublingual tablet DISSOLVE 1 TAB UNDER THE TONGUE NEEDED FOR CHEST PAIN active Not Available Not Available No t Available omeprazole 20 mg capsule,del ayed release TK ONE C PO QD AC 04/02 completed Not Available Not Available Not Available diclofenac sodium 75 mg tablet,melba yed release Take 1 tablet twice a day by oral route. 07/30 completed Not Available Not Available Not Available montelukast 10 mg tablet TK 1 T PO QD 07/30 completed Not Available Not Available Not Available hydrocodone 5 mg-acetamin ophen 500 mg tablet active Not Available Not Available No t Available levothyroxi ne 200 mcg tablet TAKE 2 TABLETS BY MOUTH ONCE EVERY DAY 04/08 completed Not Available Not Available Not Available furosemide 20 mg tablet 07/30 completed Not Available Not Available Not Available ibuprofen 600 mg tablet TK 1 T PO Q 6 H PRN P 07/30 completed Not Available Not Available Not Available levofloxaci n 500 mg tablet TAKE 1 TABLET ONCE DAILY FOR 7 DAYS active Not Available Not Available No t Available methylpredn isolone 4 mg tablets in a dose pack TAKE 6 TABLETS ON DAY 1 DIRECTED ON PACKAGE AND DECREASE BY 1 TAB EACH DAY FOR A TOTAL OF 6 DAYS active Not Available Not Available No t Available albuterol sulfate HFA 90 mcg/actuati on aerosol inhaler INHALE 1 PUFF BY MOUTH EVERY 4 HOURS NEEDED active Not Available Not Available No t Available cefdinir 300 mg capsule TAKE 1 CAPSULE BY MOUTH TWICE A DAY FOR 7 DAYS active Not Available Not Available No t Available topiramate 100 mg tablet TAKE 1 TABLET BY MOUTH THREE TIMES A DAY active Not Available Not Available No t Available Zocor 40 mg tablet Take 1 tablet every day by oral route. 2012 active Not Available Not Available Not Avai lable risperidone 1 mg tablet TAKE 1 TABLET BY MOUTH EVERYDAY AT BEDTIME active Not Available Not Available No t Available ipratropium bromide 0.02 % solution for inhalation Inhale 2.5 mL 4 times a day by inhalatio n route for 30 days. 07/30 completed Not Available Not Available Not Available levothyroxi ne 112 mcg tablet TK 1 T PO QD 07/30 completed Not Available Not Available Not Available amoxicillin 875 mg-francoisiu m clavulanate 125 mg tablet TK 1 T PO Q 12 H FOR 10 DAYS 07/30 completed Not Available Not Available Not Available olmesartan 40 mg tablet TAKE 1 TABLET BY MOUTH EVERY DAY active Not Available Not Available No t Available oxygen-air delivery systems device Patient is on 2 lpm at night 06/30 completed Not Available Not Available Not Available bupropion HCl SR 200 mg tablet,12 hr sustained-r elease TAKE 1 TABLET BY MOUTH TWICE A DAY active Not Available Not Available No t Available metoprolol tartrate 25 mg tablet TAKE 1 TABLET BY MOUTH EVERY DAY active Not Available Not Available No t Available duloxetine 60 mg capsule,del ayed release TAKE 1 CAPSULE BY MOUTH EVERY DAY active Not Available Not Available No t Available Neosporin Plus 3.5 mg-10,000 unit-10 mg/gram topical cream LIZABETH TO THE AFFECTED AREA BID FOR 2 WEEKS 07/30 completed Not Available Not Available Not Available Enbrel 50 mg/mL (1 mL) subcutaneou s syringe Inject 1 mL every week by subcutane ous route as directed. 04/12 completed Not Available Not Available Not Available Albuterol Sulfate HFA 90 mcg/Actuati on aerosol inhaler Inhale 2 puffs every 4 hours by inhalatio n route. 2012 active Not Available Not Available Not Avai lable Levoxyl 0.2 mg daily 07/30 completed Not Available Not Available Not Available oxygen-air delivery systems 2 liters 07/30 completed IV and Resp Care Not Available Not Available Not Available Enbrel SureClick 50 mg/mL (1 mL) subcutaneou s pen injector active Not Available Not Available Not Available Symbicort 160 mcg-4.5 mcg/actuati on HFA aerosol inhaler Inhale 2 puffs twice a day by inhalatio n route for 30 days. 03/31 completed Not Available Not Available Not Available Xeljanz 5 mg tablet 1-2 times daily 07/30 completed Not Available Not Available Not Available Breo Ellipta 100 mcg-25 mcg/dose powder for inhalation INHALE 1 PUFF BY MOUTH DAILY. 04/26 completed Not Available Not Available Not Available Virtussin AC 10 mg-100 mg/5 mL oral liquid TK 10 ML PO TID 07/30 completed Not Available Not Available Not Available Breo Ellipta 200 mcg-25 mcg/dose powder for inhalation Inhale 1 puff every day by inhalatio n route. 04/08 completed Not Available Not Available Not Available Fluvirin 2015- (PF) 45 mcg (15 mcg x 3)/0.5 mL intramuscul ar syringe ADM 0.5ML IM UTD 07/30 completed Not Available Not Available Not Available ferrous sulfate 220 mg (44 mg iron)/5 mL oral elixir TAKE ALL 15 ML SINGLE DOSE. DO NOT DRINK UNTIL DIRECTED BY LAB 04/26 completed Not Available Not Available Not Available Flucelvax Quad 8539-7984 (PF) 60 mcg (15 mcg x 4)/0.5 mL IM syringe ADM 0.5ML IM UTD 07/30 completed Not Available Not Available Not Available Trelegy Ellipta 100 mcg-62.5 mcg-25 mcg powder for inhalation INHALE 1 PUFF BY MOUTH ONCE DAILY active Not Available Not Available No t Available Vitals Date Recorded Body height Body mass index (BMI) Body weight Body temperature Oxygen saturation Oxygen saturation in Arterial blood by Pulse oximetry Systolic blood pressure Diastolic blood pressure Provider Name and Address Organization Details Last Updated DateTime 157.48 cm 49.1 kg/m2 505326. 47 g 98.1 [degF] 95 % 95 % 144 mm[Hg] 70 mm[Hg] Joan Anguiano MA [email or web address] 10:25:44 Date Recorded Heart rate Heart rate Respiratory rate Provider Name and Address Organization Details Last Updated DateTime 04/08/2023 60 /min 60 /min 15 /min Eduardo Wilson MD [address] [facility], [facility] [address], [place], [address], [place] 04/08/2023 10:47:04 Date Recorded Body height Body mass index (BMI) Body weight Body temperature Heart rate Systolic blood pressure Diastolic blood pressure Provider Name and Address Organization Details Last Updated DateTime 157.48 cm 48.5 kg/m2 404374. 7 g 97.7 [degF] 65 /min 128 mm[Hg] 66 mm[Hg] Joan Anguiano MA [employer] 12:38:12 Date Recorded Oxygen saturation Oxygen saturation in Arterial blood by Pulse oximetry Heart rate Respiratory rate Provider Name and Address Organization Details Last Updated DateTime 06/10/2023 95 % 95 % 65 /min 14 /min Eduardo Wilson MD [address] [facility], [facility] [address], [place], [address], [place] 12:52:41 Social History Question Answer Notes LastModified by Organizat ion Details LastModified Time Tobacco Smoking Status Current Every Day Smoker Joan Anguiano MA null, [place] 04/08/2023 10:32:14 What Is Your Level Of Alcohol Consumption? None Information not available 04/08/2023 What Is Your Level Of Caffeine Consumption? Heavy Information not available 04/08/2023 In The 14 Days Before Symptom Onset, Have You Had Close Contact With A Laboratory-confi rmed COVID-19 While That Case Was Ill? No Information not available 04/08/2023 In The 14 Days Before Symptom Onset, Have You Had Close Contact With A Person Who Is Under Investigation For COVID-19 While That Person Was Ill? No Information not available 04/08/2023 What Type Of Diet Are You Following? REGULAR Information not available 04/08/2023 Do You Have An Electrostatic Air Filter? No Information not available 04/08/2023 What Is Your Occupation? Disabled [id number] Information not available 05/06/2022 Do You Have A Humidifier? No Information not available 04/08/2023 Where Do You Live? SingleLevelHouse Information not available 04/08/2023 Do You Have Moisture Problems In Your Home? No Information not available 04/08/2023 What Was The Date Of Your Most Recent Tobacco Screening? 06/10/2023 Information not available 06/10/2023 Do You Have Any Pets? Yes Information not available 04/08/2023 Do You Use Your Seat Belt Or Car Seat Routinely? No Information not available 04/08/2023 Do You Have Smoke And Carbon Monoxide Detectors In Your Home? Yes Information not available 04/08/2023 At What Age Did You Start Smoking Tobacco? 15 Information not available 04/08/2023 Are You Passively Exposed To Smoke? Yes Information not available 04/08/2023 How Much Tobacco Do You Smoke? 1 PPD Information not available 04/08/2023 Do You Feel Stressed (tense, Restless, Nervous, Or Anxious, Or Unable To Sleep At Night)? [id number] Information not available 04/08/2023 Do You Use Any Illicit Or Recreational Drugs? No Information not available 04/08/2023 Do You Use Sunscreen Routinely? No Information not available 04/08/2023 Have You Recently Traveled Abroad? No Information not available 04/08/2023 Do You Have Any Dietary Restrictions? No Information not available 04/08/2023 Do You Or Have You Ever Used Any Other Forms Of Tobacco Or Nicotine? No Information not available 04/08/2023 Sex: Unknown Functional Status Question Answer Note LastModified by Organization D etails LastModified Time What is your exercise level? None Information not available 04/08/2023 Mental Status None recorded. Family History Relationship Description Onset Age of this Age Resolved Age Notes LastModified by Organization Details LastModified Time Mother Chronic obstructive pulmonary disease [email or web address] Not available 2023 10:29:04 Mother Heart disease [email or web address] Not available 2023 10:29:22 Father Malignant tumor of colon [email or web address] Not available 2023 10:29:44 Father Malignant tumor of pharynx [email or web address] Not available 2023 10:30:03 Maternal Grandmother Cerebrovascu lar accident [email or web address] Not available 03/2023 11:09:11 Maternal Grandfather Myocardial infarction [email or web address] Not available 04/08 11:09:20 Paternal Grandmother Heat stroke [email or web address] Not available 11:09:35 Paternal Grandfather Alcoholism [email or web address] Not available 03/2023 11:09:50 Maternal Aunt Myocardial infarction [email or web address] Not available 04/08 11:10:40 Son Diabetes mellitus [email or web address] Not available 2023 11:11:13 Notes:heart disease, COPD Medical History No medical history recorded. Gynecological HistoryNo gynecological history recorded. Obstetrics History GPAL:G 0 P 0 0 0 0 Immunizations Vaccine Type Date Status Note Provider Nam e and Address Organization Details Recorded Time Influenza, split virus, quadrivalent, preservative 7 completed Not Available [facility] 05/06/2022 07:36:24 influenza, unspecified formulation 7 completed Not Available [facility] 05/06/2022 07:36:24 influenza, unspecified formulation 6 completed Not Available [facility] 05/06/2022 07:36:25 Past Encounters Encounter ID Performer Location Encounter Start Date Encounter Closed Date Diagnosis/Indication Diagnosis SNOMED-CT Code Diagnosis ICD10 Code Diagnosis Note [id number] Eduardo Wilson MD [facility] [place] [address] 04/08/2023 09:55:11 04/08/2023 15:37:34 Dyspnea on exertion 44032258 R06.09 R05.3 T78.40XA D89.9 Smoker 31753707 F17.218 F17.219 Z87.258 [id number] Eduardo Wilson MD [facility] [address] 06/10/2023 12:27:59 06/11/2023 08:56:05 Smoker 30891195 F17.218 F17.219 Z87.891 Moderate p ersistent asthma 990333498 J45.40 Health Concerns Section Related Observation LastModified by Organization Detai ls LastModified Time None Recorded Concern Status LastModified by Organization Details LastModified Time None Recorded Advance Directives Directive None Recorded Payers Encounter Date Sequence Insurance Name Policy Number Policy Church Covered Member ID Church Member ID Guarantor Name 04/08/2023 1 [facility] (MEDICARE REPLACEMENT/A DVANTAGE - PPO) [id number] Alisha Arguello [id number] Alisha Arguello 06/10/2023 1 [facility] (MEDICARE REPLACEMENT/A DVANTAGE - PPO) [id number] Alisha Arguello [id number] Alisha Arguello Notes Date Note Type Note Provider Name and Address Organization Details Recorded Time 04/08/2023 text/html Primary care/Ref erring provider: Herve Wilson MD Patient is here to go over shortness of breath evaluation/management. Initial development of shortness of breath: 2016 Duration of shortness of breath: 8 years Condition of shortness of breath: stable Timing of shortness of breath: none Frequency: every hour Limits activities: yes Aggravating factors: walking, going up stairs Alleviating factors: rest Modified [employer] (mMRC) Dyspnea Scale - Grade 2 Grade 0 I only get breathless with strenuous exercise . Grade 1 I get short of breath when hurrying on the level or walking up a slight hill . Grade 2 I walk slower than people of the same age on the level because of breathlessness or have to stop for breath when walking at my own pace on the level . Grade 3 I stop for breath after walking about 100 yards or after a few minutes on the level . Grade 4 I am too breathless to leave the house or I am breathless when dressing . Treatment history: Albuterol nebs as needed 2015-2016Albuterol HFA as needed since 2016Atrovent nebs 2016 only Symbicort 160/4.5 mcg 2 puffs BID 2016 onlyAdvair 500/50 mcg 1 inhalation BID 2015-2016Breo Ellipta 200/25 mcg 1 inhalation daily 2016-2018Breo Ellipta 100/25 mcg 1 inhalation daily 2018-2022Trelegy Ellipta 100/62.5/25 mcg 1 inhalation daily since 2022 Other symptoms: Drooling: no Dysarthria: no Neck pain: no Odynophagia: no Dysphagia: no Weak mastication: no Facial weakness: no Nasal speech: no Protruding tongue: no Productive cough: no Wheezing: yes Chest tightness: yes Orthopnea: no Frequent throat clearing or swallowing: no Palpitations: no Heartburn: no Edema: yes Environmental exposures: Nicotine smoke: 1 ppd 1971-present (quit 20 years in between) = 33 pack years [place]: no Dye: no Dust mites: yes Mold: no Damp basement: no Wood burning stove: no Animal dander: 3 dogs Cockroaches: no Pollen: yes Arsenic: no Asbestos: no Beryllium: no Cadmium: no Chromium: no [place] smoke: no Diesel fumes: no Nickel: no Silica: no Soot: no EPWORTH SLEEPINESS SCALE (ESS) CHANCE OF DOZING SCORE 0 = would never doze 1 = slight chance of dozing 2 = moderate chance of dozing 3 = high chance of dozing SITUATION AND CHANCE OF DOZING Sitting and reading - 3 Watching television - 2 Sitting inactive in a public place (e.g. a theater or meeting) - 1 As a passenger in a car for an hour without a break - 3 Lying down to rest in the afternoon when circumstances permit - 3 Sitting and talking to someone - 0 Sitting quietly after lunch without alcohol - 1 In a car, while stopped for a few minutes in the traffic - 0 TOTAL SCORE Subjectively, patient has a moderate chance of dozing. Eduardo Wilson MD [address] [place] [address], [id number], [place] [facility] 04/08/2023 11:14:40 06/10/2023 text/html Primary care/Ref erring provider: Herve Wilson MD Patient is here to go over her lab tests, chest CT and methacholine challenge testing as part of her shortness of breath evaluation/management. Initial development of shortness of breath: 2016Duration of shortness of breath: 8 yearsCondition of shortness of breath: stableTiming of shortness of breath: noneFrequency: every hourLimits activities: yesAggravating factors: walking, going up stairsAlleviating factors: rest Modified [employer] (mMRC) Dyspnea Scale - Grade 2Grade 0 I only get breathless with strenuous exercise .Grade 1 I get short of breath when hurrying on the level or walking up a slight hill .Grade 2 I walk slower than people of the same age on the level because of breathlessness or have to stop for breath when walking at my own pace on the level .Grade 3 I stop for breath after walking about 100 yards or after a few minutes on the level .Grade 4 I am too breathless to leave the house or I am breathless when dressing . Treatment history: Albuterol nebs as needed 2015-2016Albuterol HFA as needed since 2016Atrovent nebs 2015 onlySymbicort 160/4.5 mcg 2 puffs BID 2015 onlyAdvair 500/50 mcg 1 inhalation BID 2015-2016Breo Ellipta 200/25 mcg 1 inhalation daily 2016-2018Breo Ellipta 100/25 mcg 1 inhalation daily 2018-2022Trelegy Ellipta 100/62.5/25 mcg 1 inhalation daily since 2022 Other symptoms:Drooling: noDysarthria: noNeck pain: noOdynophagia: noDysphagia: noWeak mastication: noFacial weakness: noNasal speech: noProtruding tongue: noProductive cough: noWheezing: yesChest tightness: yesOrthopnea: noFrequent throat clearing or swallowing: noPalpitations: noHeartburn: noEdema: yes Environmental exposures:Nicotine smoke: 1 ppd 1971-present (quit 20 years in between) = 33 pack yearsPaint: noDye: noDust mites: yesMold: noDamp basement: noWood burning stove: noAnimal dander: 3 dogsCockroaches: noPollen: yesArsenic: noAsbestos: noBeryllium: noCadmium: noChromium: noCoal smoke: noDiesel fumes: noNickel: noSilica: noSoot: no EPWORTH SLEEPINESS SCALE (ESS) CHANCE OF DOZING SCORE0 = would never doze1 = slight chance of dozing2 = moderate chance of dozing3 = high chance of dozing SITUATION AND CHANCE OF DOZINGSitting and reading - 1Watching television - 1Sitting inactive in a public place (e.g. a theater or meeting) - 1As a passenger in a car for an hour without a break - 1Lying down to rest in the afternoon when circumstances permit - 2Sitting and talking to someone - 0Sitting quietly after lunch without alcohol - 2In a car, while stopped for a few minutes in the traffic - 0TOTAL SCORE 8Subjectively, patient has a slight chance of dozing. Eduardo Wilson MD [address] [facility], [facility] [address], [place], [address], [facility] [employer] [facility] 06/10/2023 13:04:23 OBGyn Episode No OBEpisode recorded.
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
--- OUTSIDE RECORDS SUMMARY | 2024-05-01 02:55 | XMS_ITS | Clinical Summary ---
Author Organization [facility] Address [address] [place] [address] Care Team Providers Care Media Relations Director Name Role Phone Unavailable Primary Care Provider Unavailabl e Allergies Active Allergy Reactions Criticality Noted Date Comments Cephalexin Other (see comment) 08/10/2017 Yeast infection Lisinopril GI Upset 08/10/2017 Medications amlodipine 10 MG tablet Take 10 mg by mouth daily. Active atorvastatin 20 MG tablet Take 20 mg by mouth daily. Active fluticasone furoate-vilante rol 100-25 MCG/INH inhaler Inhale 1 puff into the lungs daily. Active buPROPion 200 MG TABLET SR 12 HR Take 1 tablet by mouth 2 (two) times daily. Active citalopram 40 MG tablet Take 40 mg by mouth daily. Active duloxetine 60 MG capsule Take 60 mg by mouth daily. Active Etanercept (ENBREL MINI) 50 MG/ML Solution Cartridge Inject 50 mg into the skin weekly. Active esomeprazole 40 MG capsule Take 40 mg by mouth every morning before breakfast. Active furosemide 40 MG tablet Take 40 mg by mouth daily. Active leflunomide 20 MG tablet Take 20 mg by mouth daily. Active levothyroxine 25 MCG tablet Take 20 mcg by mouth every morning. Active omeprazole 20 MG capsule Take 20 mg by mouth daily. Active OXcarbazepine ER 300 MG TABLET SR 24 HR Take 300 mg by mouth 3 (three) times daily. Active oxybutynin ER 10 MG 24 hr tablet Take 10 mg by mouth daily. Active potassium chloride CR 10 MEQ tablet Take 10 mEq by mouth 2 (two) times daily. Active predniSONE 5 mg tablet Take 5 mg by mouth daily. Active risperiDONE 2 MG tablet Take 2 mg by mouth nightly. Active sucralfate 1 G tablet Take 1 g by mouth 4 (four) times daily. Active topiramate 100 MG tablet Take 100 mg by mouth 3 (three) times daily. Active albuterol sulfate HFA 108 (90 Base) MCG/ACT inhaler Inhale 2 puffs into the lungs every 6 (six) hours as needed for Wheezing. Active Active Problems Problem Noted Date Diagnosed Date Iron deficiency anemia 08/10/2017 Social History Tobacco Use Types Packs/Day Years Used Date Smoking Tobacco: Former Cigarettes Q uit: 03/08/2006 Smokeless Tobacco: Never Tobacco Cessation:Counseling Given: No Alcohol Use Standard Drinks/Week Comments No 0 (1 standard drink = 0.6 oz pur e alcohol) stopped drinking 35 yrs ago Comments Unknown Sex and Gender Information Value Date Recorded Sex Assigned at Not on file Legal Sex Female 8:11 AM CDT Gender Identity Not on file Sexual Orientation Not on file Last Filed Vital Signs Vital Sign Reading Time Taken Comments Blood Pressure 140/72 08/10/2017 9:03 AM CDT Pulse 62 08/10/2017 9:03 AM CDT Temperature 36.8 C (98.2 F) 08/10/2017 7:37 AM CDT Respiratory Rate 18 08/10/2017 9:03 AM CDT Oxygen Saturation 95% 08/10/2017 9:03 AM CDT Inhaled Oxygen Concentration - - Weight 128.4 kg (283 lb) 08/10/2017 7:37 AM CDT Height 162.6 cm (5' 4 ) 08/10/2017 7:37 AM CDT Body Mass Index 48.58 08/10/2017 7:37 AM CDT Plan of Treatment Health Maintenance Due Date Last Done Comments Colorectal Cancer Screening Colonoscopy (10 Years) 1955 Hepatitis C 08/18/1973 DTaP, Tdap and Td Vaccines ( 1 - Tdap) 08/18/1974 Mammogram Screening 1995 Zoster Vaccines (1 of 2) 08/18/2005 Annual Medicare Wellness Visit 08/18/2020 Dexa Scan (General) 08/18/2020 Pneumococcal Vaccine: 65+ Years (2 of 2 - PCV) 08/18/2020 03/18/2012 COVID-19 Vaccine ( - 2023-2 5 season) 2023 Influenza Adult (#1) 2023 01/17/2017, 12/05/2013, 01/11/2013 RSV Immunization or 60+ Years (1 - 1-dose 75+ series) 08/18/2030 Meningococcal B Vaccine Aged Out No l onger eligible based on patient's age to complete this topic Meningococcal Vaccine Aged Out No marci randy eligible based on patient's age to complete this topic RSV Immunizations Under 20 Months Aged Out No longer eligible b ased on patient's age to complete this topic Insurance MEDICARE
--- NOTE | 2024-05-01 05:00 | WPDHPUPDATE1 ---
History and Physical Update Update Date/Time: 05/01/24 05:00 History and Physical has been reviewed, including an updated exam of the patient. There are NO changes in the patient's condition. Risks, benefits, and alternatives have been discussed and questions answered. Patient agrees to proceed with procedure.
[2024-05-01 09:20] VITALS: BP 151/65; PULSE 52; RESP 18; TEMP 36.7; O2SAT 97
[2024-05-01 10:03] LABS: Hematocrit 37.6 % (37.0-47.0); Hemoglobin 11.3 g/dL (12.0-15.0)
[2024-05-01] MEDS: ceFAZolin 2 GM/D5W 50 ML 2 GM/50 ML BAG IVPB (10:51)
--- NOTE | 2024-05-01 10:55 | P.PNAN_ITS ---
Anes - Initial Pre Proc Eval Procedure: Operation Date: 05/01/24 11:15 Proposed Procedures p Removal and Replacement of Interstim Implant - Husam Morales MD Date/Time: 05/01/24 10:55 Surgeon: Husam Morales MD Pre Op Diagnosis: sensory urge incont Patient Data Age: 68 Gender: F Height: 1.63 m Weight: 115.4 kg Last Vital Signs Temp 98.1 F 05/01/24 09:20 Pulse 52 L 05/01/24 09:20 Resp 18 05/01/24 09:20 BP 151/65 H 05/01/24 09:20 Pulse Ox 97 05/01/24 09:20 O2 Del Method Room Air 05/01/24 09:20 Allergies Allergy/AdvReac Type Severity Reaction Status Date / Time montelukast Allergy Other Verified 05/01/24 10:05 Home Medications ?Medication ?Instructions ?Recorded ?Confirmed ?Type albuterol sulfate 90 mcg/actuation 2 inh inhalation QID PRN Shortness 08/25/21 04/21/24 History aerosol inhaler Of Breath Or Wheezing alendronate 70 mg tablet 1 tablet PO WEEKLY 08/25/21 05/01/24 History amlodipine 5 mg tablet 5 mg PO DAILY 08/25/21 05/01/24 History atorvastatin 20 mg tablet 20 mg PO DAILY 08/25/21 05/01/24 History bupropion HCl 200 mg tablet,12 hr 200 mg PO BID 08/25/21 05/01/24 History sustained-release citalopram 20 mg tablet 20 mg PO DAILY 08/25/21 05/01/24 History duloxetine 60 mg capsule,delayed 60 mg PO DAILY 08/25/21 05/01/24 History release etanercept 50 mg/mL (1 mL) 1 ea subcut WEEKLY 08/25/21 05/01/24 History subcutaneous pen injector (Enbrel SureClick) leflunomide 20 mg tablet 20 mg PO DAILY 08/25/21 05/01/24 History metoprolol tartrate 25 mg tablet 25 mg PO DAILY 08/25/21 05/01/24 History omeprazole 40 mg capsule,delayed 40 mg PO DAILY 08/25/21 05/01/24 History release risperidone 1 mg tablet 1 mg PO HS 08/25/21 05/01/24 History ropinirole 1 mg tablet 1 mg PO HS 08/25/21 04/21/24 History topiramate 100 mg tablet 100 mg PO TID 08/25/21 05/01/24 History dextromethorphan-guaifenesin 30 1 tab PO Q12HR #30 tabs 08/27/21 04/21/24 Rx mg-600 mg tablet extended [id number] hr (Mucinex DM) aspirin 81 mg tablet,delayed 81 mg PO DAILY 04/21/24 05/01/24 History release (Adult Aspirin Regimen) levothyroxine 150 mcg tablet 150 mcg PO QAM 04/21/24 05/01/24 History prednisone 5 mg tablet 5 mg PO DAILY 04/21/24 05/01/24 History hydrocodone 5 mg-acetaminophen 325 1 tablet PO Q6H PRN pain #20 tabs 05/01/24 Rx mg tablet Laboratory Tests 05/01/24 09:47 Hgb 11.3 L g/dL (12.0-15.0) Hct 37.6 % (37.0-47.0) Patient hx anesthesia problems: none Family hx anesthesia problems: none Results Review: All pre-operative results and documents have been reviewed as part of the pre- operative evaluation. [facility] Past Medical History Medical History Rheumatoid arthritis Carpal tunnel syndrome Anxiety and depression Bipolar 1 disorder Hyperlipemia Hypertension Hypothyroidism COPD (chronic obstructive pulmonary disease) Surgical History Surgical History History of total left knee replacement History of tonsillectomy H/O: hysterectomy H/O thyroidectomy Family History Family History Mother Hypertension COPD (chronic obstructive pulmonary disease) Lung cancer Father Hypertension COPD (chronic obstructive pulmonary disease) Lung cancer Grandparent Cerebrovascular accident maternal grandmother Son Diabetes mellitus Social History Social History Social History: Patient lives by herself and has 3 rescue dogs at home. She has 1 son his name is Adam who will be her surrogate if she can not make her own decisions. Patient stated that she is a half a pack smoker a day and quit 4 days ago and has been smoking for 14 years. Patient wishes to be a full code at this time. 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 None loose per pt. ) Neurological: alert and oriented Last oral intake: >/= 8 hours ASA classification: IV Emergent: no Anesthetic plan: proceed Anesthesia type and monitoring: general GIVS and standard monitoring Results Review: All pre-operative results and documents have been reviewed as part of the pre- operative evaluation. ECHO 2021 w nml LVEF, mild , mod pulmon HTN. Pt cont to smoke 3/4 ppd. Informed Consent: The patient's anesthetic plan and its attendant risks and benefits were discussed with the patient/family/POA. Questions were solicited and answers provided to the satisfaction of the patient/family/POA.
[2024-05-01] MEDS: BUPIVACAINE/EPINEPHRINE 0.5% 50 ML VIAL 20 ML INFILTRATE (11:06)
[2024-05-01 11:46] VITALS: BP 196/81; PULSE 60; RESP 20
[2024-05-01 12:15] VITALS: BP 197/83; PULSE 55; RESP 20
[2024-05-01 12:45] VITALS: BP 193/84; PULSE 54; RESP 20
[2024-05-01 13:05] VITALS: BP 188/85; PULSE 52
--- NOTE | 2024-05-01 13:21 | SUR.PHASEII ---
1230 - dr. avitia in room talking 1255 - dr. avitia in room talking to patient.
--- NOTE | 2024-05-01 15:11 | P.OP_ITS ---
Procedure Note - Detailed Date of Procedure 05/01/24 Pre-op Diagnosis sensory urge incont fecal incontinence Post-op Diagnosis Same Procedure Performed remove and replace InterStim device Surgeon Husam Morales MD Anesthesia MAC and Local Indications Is a woman with urge urinary incontinence as well as fecal incontinence. She has InterStim device in place. Is been revised once in the past. She is here today because her battery is nearing end of service and she would like to be more compatible. She will undergo full revision. She understands risks of bleeding, infection, lack of efficacy, need for further revision and battery changes, she agrees to proceed Description of Procedure She is correctly identified. Informed consent obtained. From the operating room. She was given monitored anesthesia care. She was placed in prone position. She was prepped draped sterile fashion. She was given appropriate perioperative antibiotics. A time-out performed. I anesthetized skin over the pulse generator. I incised the skin and explanted the pulse generator. I then anesthetized the skin over the sacral lead after identifying it under fluoroscopy. I incised the skin. I located the previously placed sacral lead in the S4 foramen and removed the lead in its entirety. Identified sacral landmarks in the AP lateral rotation. I anesthetized the skin. I entered the S3 foramen on the patient's right and the patient's left. I stimulated the needle and got appropriate responses at a low threshold on the right-sided S3. Made a skin saúl. I placed the stylet and the lead induced sheath. I then placed a deployed my lead. The lead was appropriate placed under fluoroscopy and I got appropriate responses at a lower threshold. I then tunneled the lead towards the previously made pulse generator pocket. I made appropriate connections from the lead the new pulse generator. It was placed in the pocket. Impedances were checked and found to be normal. I your get all the wounds. I assured hemostasis. I closed subcutaneous tissues with 2-0 Vicryl. Skin with 4-0 Vicryl. Glue was applied. She was awakened she was transferred to the stretcher gently and taken to the recovery room in stable condition She was programmed by the [employer] rep present was told that she could not feel the stimulation at high threshold. We did a sacral x-ray that point and identified the lead had been dislodged. I spoke with the patient about taking her back to the OR to revise her lead and get back in the appropriate place. She had already eaten a Vega crackers\ so we would have to wait 6 hours. She declined to wait this period of time and would like to have the lead replaced and another operative setting. Again I offered to take care of the issue today and she declined. She was sent home in stable condition and we will reschedule a lead revision in 2 weeks Estimated Blood Loss 2 Pathology None sent Disposition PACU
== END 2024-05-01 13:14 | disposition home or self-care (01) ==
PROVIDERS: Anesthesiology; PCP Family Medicine; Visit Provider Urology
PROC: (CPT 64590; principal; 2024-05-01 11:15)
DX: Z45.42 Encounter for adjustment and management of neurostimulator (principal); N39.41 Urge incontinence; F98.1 Encopresis not due to a substance or known physiological condition; F17.210 Nicotine dependence, cigarettes, uncomplicated; E66.01 Morbid (severe) obesity due to excess calories; Z68.41 Body mass index [BMI] 40.0-44.9, adult
CPT/HCPCS: 64590; 64585; 36415; 72220; 85014; 85018; 99199; C1767; C1778; C1787; J0690; J2003; J2004; J2250; J2405; J2704; J3010

== ENCOUNTER 2024-05-15 01:07 | Day surgery (SDC) | payer MEDICARE, SELFPAY ==
--- NOTE | 2024-05-04 13:29 | PC.NURSE ---
Report to the Outpatient Waiting Room, entrance under the green pavilion located off [facility], at time _1 PM on date __05/15/24 . Planned Procedure Time: __3 PM .? Time changes happen often and if your time is changed the preop area will call you the afternoon before. - You and your visitor will be asked to self-screen and do not enter if you have any COVID symptoms. Please call surgeon if you need to reschedule. - A mask is optional within the hospital at this time. Patients may have clear liquids (water, carbonated beverages, clear teas, apple juice) until 3 hours prior to surgery ( NOON)with a maximum of 20 ounces. - No food from midnight until time of surgery and no smoking, or chewing tobacco (or any form of nicotine). No chewing gum, candy or mints. - Infants may have breast milk until 4 hours before surgery, formula 6 hours prior to surgery. - Children will be allowed to drink immediately following surgery.? If applicable, please bring a bottle or sippy cup to assist with drinking. Juice, water, soda, and popsicles are readily available.? For infants on formula, please bring formula the day of surgery.? Pacifiers are allowed. Take only the following medications with a SIP of water on the morning of surgery: _ALBUTEROL IF NEEDED,AMLODIPINE,BUPROPION,CITALOPRAM,DULOXETINE,LEVOTHYROXINE,METOPROLOL,PREDNISONE DO NOT STOP ANY OF YOUR OTHER PRESCRIPTION MEDICATIONS PRIOR TO SURGERY EXCEPT THE FOLLOWING Hold all vitamins and supplements for 3 days per anesthesiologist. Medications to discontinue per physician NONE Please no make-up, nail slovenian, hairspray, perfume, deodorant, or body powder the day of surgery.? No jewelry (including any body piercings) or valuables the day of surgery, leave them at home.? Please take a shower or bath the night before, or the morning of, surgery with an antibacterial soap.? Wear comfortable, loose fitting clothing.? Children are encouraged to wear pajamas. - Jewelry must be removed prior to entering the operating room.? Rings and piercings that are not removed may be cut off. - The hospital will not accept responsibility for valuables.? - Please leave all valuables, including medications, at home the day of surgery. If you are going home after surgery, a licensed driver sales must drive you home.? - NO public transportation without another adult if you receive anesthesia. - We recommend that an adult stay with you for 24 hours following discharge. - We also recommend that you do not drive, make important decision, drink alcoholic beverages, or take any drugs that were not prescribed by your health care provider for at least 24 hours after your discharge time. For Pediatric surgeries, we recommend two adults accompany the child home. Follow any additional instructions given to you from your surgeon. Telephone instructions given to ___PATIENT and asked if any additional questions and then verbalized understanding. Patient advised to call surgeon office or pre surgery nurse liaison [phone] if any additional questions.
--- NOTE | 2024-05-04 13:36 | PC.NURSE ---
STATES NO CHANGE IN HEALTH HX SINCE 05/01/24
[2024-05-04 13:37] VITALS: BMI 46.9
--- NOTE | 2024-05-13 10:51 | PM.IMHP ---
H&P: HPI History of Present Illness Date/Time: 05/13/24 10:51 Chief Complaint: incontinence Narrative: FI adn UUI. diaplaced interstim lead Review of Systems Review of Systems: All systems reviewed & are unremarkable except as noted in HPI and below PMFSH Past Medical History Medical History Rheumatoid arthritis Carpal tunnel syndrome Anxiety and depression Bipolar 1 disorder Hyperlipemia Hypertension Hypothyroidism COPD (chronic obstructive pulmonary disease) Surgical History Surgical History History of total left knee replacement History of tonsillectomy H/O: hysterectomy H/O thyroidectomy Family History Family History Mother Hypertension COPD (chronic obstructive pulmonary disease) Lung cancer Father Hypertension COPD (chronic obstructive pulmonary disease) Lung cancer Grandparent Cerebrovascular accident maternal grandmother Son Diabetes mellitus Social History Social History Social History: Patient lives by herself and has 3 rescue dogs at home. She has 1 son his name is Adam who will be her surrogate if she can not make her own decisions. Patient stated that she is a half a pack smoker a day and quit 4 days ago and has been smoking for 14 years. Patient wishes to be a full code at this time. 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 Gender identity (if verbalized by the patient): Female Sexual Orientation (if Verbalized by the Patient): Straight or Heterosexual Spiritual care concerns: No Agree to blood products: Yes Meds Home Medications and Allergies Home Medications ?Medication ?Instructions ?Recorded ?Confirmed ?Type albuterol sulfate 90 mcg/actuation 2 inh inhalation QID PRN Shortness 08/25/21 05/04/24 History aerosol inhaler Of Breath Or Wheezing alendronate 70 mg tablet 1 tablet PO WEEKLY 08/25/21 05/04/24 History amlodipine 5 mg tablet 5 mg PO DAILY 08/25/21 05/04/24 History atorvastatin 20 mg tablet 20 mg PO DAILY 08/25/21 05/04/24 History bupropion HCl 200 mg tablet,12 hr 200 mg PO BID 08/25/21 05/04/24 History sustained-release citalopram 20 mg tablet 20 mg PO DAILY 08/25/21 05/04/24 History duloxetine 60 mg capsule,delayed 60 mg PO DAILY 08/25/21 05/04/24 History release etanercept 50 mg/mL (1 mL) 1 ea subcut WEEKLY 08/25/21 05/04/24 History subcutaneous pen injector (Enbrel Raz) leflunomide 20 mg tablet 20 mg PO DAILY 08/25/21 05/04/24 History metoprolol tartrate 25 mg tablet 25 mg PO DAILY 08/25/21 05/04/24 History omeprazole 40 mg capsule,delayed 40 mg PO DAILY 08/25/21 05/04/24 History release risperidone 1 mg tablet 1 mg PO HS 08/25/21 05/04/24 History ropinirole 1 mg tablet 1 mg PO HS 08/25/21 05/04/24 History topiramate 100 mg tablet 100 mg PO TID 08/25/21 05/04/24 History dextromethorphan-guaifenesin 30 1 tab PO Q12HR #30 tabs 08/27/21 05/04/24 Rx mg-600 mg tablet extended [id number] hr (Mucinex DM) aspirin 81 mg tablet,delayed 81 mg PO DAILY 04/21/24 05/04/24 History release (Adult Aspirin Regimen) levothyroxine 150 mcg tablet 150 mcg PO QAM 04/21/24 05/04/24 History prednisone 5 mg tablet 5 mg PO DAILY 04/21/24 05/04/24 History hydrocodone 5 mg-acetaminophen 325 1 tablet PO Q6H PRN pain #20 tabs 05/01/24 05/04/24 Rx mg tablet Allergies Allergy/AdvReac Type Severity Reaction Status Date / Time montelukast Allergy Other Verified 05/04/24 13:27 Exam Narrative: obese NAD Assessment and Plan Assessment and plan (1) Fecal incontinence not due to organic disease: Code(s): F98.1 - Encopresis not due to a substance or known physiological condition Status: Acute (2) Urge incontinence: Code(s): N39.41 - Urge incontinence Status: Acute (3) Malfunction of nerve stimulator lead: Code(s): T85.199A - Other mechanical complication of other implanted electronic stimulator of nervous system, initial encounter Status: Acute Plan interstim revision
[2024-05-15] VITALS (7 sets, daily range): BP systolic 168–204; BP diastolic 54–65; PULSE 47–55; RESP 18–20; TEMP 36.9; O2SAT 97–100
--- NOTE | ~2024-05-15 | XR_ITS ---
EXAMINATION: XR fluoroscopy no charge DATE: 05/15/2024 14:45 CDT INDICATION: REMOVAL AND REPLACEMENT INTERSTIM IMPLANT . TECHNIQUE: 2 fluoroscopic images of the sacrum were obtained during removal and replacement of inters yue implant, performed by Husam Morales MD. I was not present during the procedure. Fluoroscopy exposure time was 54.8 seconds. Air Kerma 58.297 mGy. DAP 11.5 x 7 mGym2. COMPARISON: 05/01/2024 FINDINGS/IMPRESSION: Fluoroscopic documentation of removal and replacement of interstim implant. Please refer to the opera tive note for complete procedural details . Reviewed, dictated and finalized at location K.
--- OUTSIDE RECORDS SUMMARY | 2024-05-15 01:10 | XMS_ITS | Data Portability ---
Author Organization [facility] SURINDERNick Nichols Address [address] [place] [address] Care Team Providers Care Helpdesk Administrator Name Role Phone ROTHMANANITRA Primary Care Provider Assessment Encounter Date Assessment Date Assessment LastModified by Organization Details LastModified Time 04/17/2019 04/17/[address] Almaraz every 5 years for colonoscopy; has mammogram ordered in 1 week, Sung also does EGD with esophageal dilation every year. Patient quit smoking but still has a little emphysema. [email or web address] Not available 04/27/2019 23:12:00 Plan of Treatment Reminders Order Date Submit Date Provider Last Modified By Organization Details Last Modified Time Details Appointments None recorded. Lab None recorded. Referral rheumatol ogist referral - Please call patient and schedule appt. Please send consult note after initial visit. Thank you 2019 [facility] Suzanne Zmaan MD, [address] , [address], [address], 0 12:04:57 Procedures None recorded. Surgeries None recorded. Imaging MAMMO, diagnosti c, digital, bilateral 2019 020 [facility] (Mammography) , [address], [place], [address], 0 12:35:21 US, breast, bilateral 2019 020 [facility] (Mammography) , [address], [place], [address], 0 12:35:21 Medication Orders None recorded. Patient TargetsNo targets recorded. Patient Instructions Encounter Date Encounter Id Patient Instructions Last Modified By Organization Details Last Modified Time 04/17/2019 [id number] rheumatoid arthritis diet: care instructions [email or web address] Not available 04/27/2019 23:15:29 Rheumatoid Arthritis (RA): Care Instructions [email or web address] Not available 04/27/2019 23:15:29 Reason for Referral Car Supplier Referral for Rheumatoid arthritis Please call patient and schedule appt. Please send consult note after initial visit. Thank you Referring Physician: Anitra Rothman, Family Medicine, Encounter Date: 04/17/2019 Problems No Known Problems Procedures Surgical History Date Name Laterality Status Provider Name and Address Organization Details Recorded Time 03/08/18 90 total hysterectomy completed JOSUE Poon [facility] 04/17/2019 11:47:44 total knee replacement completed JOSUE Poon [facility] 04/17/2019 11:46:29 Carpal tunnel surgery completed JOSUE Poon [facility] 04/17/2019 11:46:34 Carpal tunnel surgery completed JOSUE Poon [facility] 04/17/2019 11:46:34 Carpal tunnel surgery completed JOSUE Poon [facility] 04/17/2019 11:46:35 tonsillectomy completed JOSUE Poon [facility] 04/17/2019 11:46:41 Imaging Results None recorded. Procedure [...] % 97 % 64 /min 42.9 kg/m2 990225. 38 g 132 mm[Hg] 72 mm[Hg] Juana Smith MA [facility] 0 11:50:09 Social History Question Answer Notes LastModified by Organizat ion Details LastModified Time Tobacco Smoking Status Former Smoker Juana Smith MA null, [facility] 04/17/2019 11:44:42 Do You Have An [...] Response Coronary Artery Disease N Other Y High Blood Pressure N Atrial Fibrillation N Thyroid Problems Y Kidney or Bladder Problems N GI Problems N Depression N COPD Y Blood Clots N Skin Problems N Eating Disorder N Anemia N Heart Attack ([place]) N Diabetes N Anxiety Disorder N Muscle, [...] unspecified formulation 12/06/2018 completed Juana Smith MA [facility], [place] [facility] 04/17/2019 11:49:45 Past Encounters Encounter ID Performer Location Encounter Start Date Encounter Closed Date Diagnosis/Indication Diagnosis SNOMED-CT Code Diagnosis ICD10 Code Diagnosis Note [id number] Anitra Rothman MD [facility] [address] [place] [address] 04/17/2019 11:31:59 04/28/2019 09:32:12 Rheumatoid arthritis 65817188 M06.9 enbrel shots weekly, Depression screening 171 891558 Z13.31 patient does not appear to be significan tly depressed. [id number] Anitra Rothman MD [facility] [address] [facility] [place] [address] 11/06/2019 11:55:37 11/06/2019 14:59:31 Non-cyclical mastalgia [id number] N64.4 patient denies taking hormone replacemen t [...] Name 04/17/2019 1 [employer] (MEDICARE REPLACEMENT HMO) [id number] Alisha Arguello [id number] Alisha Arguello 11/06/2019 1 [employer] - PRIME (MEDICARE REPLACEMENT/A DVANTAGE - HMO) [id number] Alisha Arguello [id number] Alisha Arguello Notes Date Note Type Note Provider Name and Address Organization Details Recorded Time 04/17/2019 text/html Pt. states she i s here to establish care and needs a referral Anitra Rothman MD Attn: [address] [place], [address], [facility] 04/27/2019 23:16:21 11/06/2019 text/html Breast PainReported bypatient.Location :bilateral Onset/Timin-4 weeks Duration:intermitt ent Quality:sharp; stabbing Severity:moderate Context:[place] radha Modifying Factors:touch; exercise; pressure Associated Symptoms:no fever; no chills; no nipple discharge; no breast swelling; no arm pain; no arm swelling; no chest pain; no malaise; facial infection treated with antibiotics; denies infections on hands or arms or abdominal wal. Anitra Rothman MD Attn: [address] [place], [address], [facility] 11/06/2019 23:54:55 OBGyn Episode Ob Episode Information Episode Created Date Number of Fetuses Patient Bloodtype Patient rh Status Prepregnancy Weight lbs Domestic Partner Domestic Partner Phone Father Name Coiled Coil Inspector Status 04/17/19 20 1 CLOSED Fetus Data First Name Last Name Admitted to NICU Weight (g) Sex Living Outcome Pediatric Complications Fetus ID Race Codes Race Delivery Type [id number] Memo Calculation Initial Memo Date Initial Exam [...]
--- OUTSIDE RECORDS SUMMARY | 2024-05-15 01:10 | XMS_ITS | Patient Health Summary ---
Author Organization [facility] [email or web address] Address [address] [place] [address] Care Team Providers Care Molder Machine Name Role Phone Unavailable Primary Care Provider Unavailabl e Note from [facility][note 3],non-owned Affiliates and Associated Physician Practices is amultiple site organization consisting of ambulatory clinics and hospital sitesin [place], [place], [place] and [place]. This disclosure is being madepursuant to the Care Everywhere program and may not contain all information available regarding this patient. Last updated 17.[facility] [email or web address] Allergies No known active allergies Medications * [...]
--- OUTSIDE RECORDS SUMMARY | 2024-05-15 01:10 | XMS_ITS | Clinical Summary ---
Author Organization [facility] Address [address] [place] [address] Care Team Providers Care Kelly Machine Operator Name Role Phone Cy Mckinnon DO Unavailable [phone] Herve Wilson MD Primary Care Provider [phone] Allergies Active Allergy Reactions Criticality Noted Date Comments Cephalexin Unknown 08/10/2017 Yeast infection Lisinopril Other (See comments) Low 08/10/2017 Montelukast Other (See comments),Unknown Low [address] (CYMBALTA) 60 mg capsule take 1 capsule by oral route every day 0 0 09/05/19 14 Active OXcarbazepine (TRILEPTAL) 300 mg tablet take 1 tablet by oral route 3 times every day 0 0 11/27/19 15 Active rOPINIRole (REQUIP) 1 mg tablet take 1 tablet by oral route every day 0 0 11/27/19 15 Active topiramate (TOPAMAX) 100 mg tablet take 1 Tablet (100MG) by oral route 3 times every day 0 04/29/[address] (NexIUM) 40 mg capsule [...] tablet (25 mg total) by mouth daily 06/12/19 22 Active buPROPion SR (WELLBUTRIN SR) 200 mg 12 hr tablet Take 1 tablet (200 mg total) by mouth 2 (two) times a day 06/23/19 22 Active citalopram (CeleXA) 20 mg tablet Take 1 tablet (20 mg total) by mouth daily 06/22/19 22 Active risperiDONE (RisperDAL) 1 mg tablet Take 1 tablet (1 mg total) by mouth nightly 06/30/19 22 Active amLODIPine (NORVASC) 5 mg tablet Take 1 tablet (5 mg total) by mouth daily 06/11/19 22 Active meloxicam (MOBIC) 15 mg tablet Take 1 tablet (15 mg total) by mouth daily 06/22/19 23 Active levothyroxine (SYNTHROID) 150 mcg tablet Take 1 tablet (150 mcg total) by mouth daily 07/29/19 24 Active alendronate (FOSAMAX) 70 mg tablet TAKE 1 TABLET BY MOUTH ONE TIME PER WEEK 12 tablet 11/15/19 24 Active leflunomide (ARAVA) 20 mg tablet TAKE 1 TABLET BY MOUTH EVERY DAY 90 tablet 12/27/19 24 Active etanercept (EnbreL SureClick) 50 mg/mL (1 mL) pen injector INJECT 1 PEN UNDER THE SKIN EVERY 7 DAYS. 4 mL 3 03/02/20 24 Active predniSONE (DELTASONE) 5 mg tablet TAKE 1 TABLET BY MOUTH EVERY DAY 30 tablet 05/12/19 25 Active predniSONE (DELTASONE) 5 mg tablet TAKE 1 TABLET BY MOUTH EVERY DAY 30 tablet 03/31/19 25 025 Discontinued predniSONE (DELTASONE) 5 mg tablet TAKE 1 TABLET BY MOUTH EVERY DAY 30 tablet 05/04/19 25 025 Discontinued Active Problems Problem Noted Date Diagnosed Date Angina at rest 03/06/2024 Aortic insufficiency 03/06/2024 Depressive disorder 03/06/2024 Hypertension 03/06/2024 Hypoxemia 03/06/2024 Overview (03/06/2024): nocturnal Obstructive sleep apnea syndrome 03/06/2024 Obesity 03/06/2024 Bipolar II disorder 03/06/2024 Restless legs syndrome 03/06/2024 Long-term use of high-risk medication 10/08/2023 Assessment & Plan (10/08/2023 11:08 AM CDT): Long-term use of high-risk medication requiring regular monitoring. Labs ordered, no s/s of med tox or infection. Encouraged to work with PCP to make sure all recommended cancer screens and vaccinations are complete. Avoid live-vaccines unless reviewed with veterinary technology instructor first. Osteopenia 10/08/2023 Assessment & Plan (10/08/2023 11:08 AM CDT): On fosamax since 2020. Due for repeat DEXA. Will do at [facility]. You need 1200mg calcium daily between [...] (10/30/2021): Added automatically from request for surgery [id number] Mechanical complication of e lectrode lead of implanted electronic neurostimulator of peripheral nerve 10/30/2021 Overview (10/30/2021): Added automatically from request for surgery [id number] Stress incontinence 07/04/2020 Overview (07/04/2020): Added automatically from request for surgery [id number] Primary nocturnal enuresis 07/04/2020 Overview (07/04/2020): Added automatically from request for surgery [id number] Dysphagia 03/27/2020 Overview (03/27/2020): Added automatically from request for surgery [id number] Special screening for malignant neoplasms, colon 03/27/2020 Overview (03/27/2020): Added automatically from request for surgery [id number] Anemia 02/22/2019 Overview (03/06/2024): Problems with anemia when Rheumatoid Arthritis is more active Melisa Titus 02.22.2019 Pain 02/22/2019 Overview (03/06/2024): Last Assessment & Plan: Pain in in right wrist and left ankle Melisa Ortegakari 02.22.2019 Iron deficiency anemia 10/01/2017 Iron deficiency [...] Department Care Team Description 02/18/2024 Telephone [facility] [address] [place] [address] Jeronimo Negrete RPh 02/17/2024 Telephone [facility] Rheumatology at [facility] [address] [place] [address] Suzanne Zaman MD from Last [...] intestine 07/22/2013 Dive rticulitis Bipolar I disorder ([facility]) 06/14/2012 Bipolar 1 disorder Rheumatoid arthritis (HCC) Hypothyroidism Hyperlipidemia HTN (hypertension) GERD (gastroesophageal reflux disease) Esophageal stenosis Osteoporosis Neuropathy Heart valve regurgitation CHF (congestive heart failure) ([facility]) history Bipolar 1 disorder ([facility]) Hiatal hernia Peptic ulcer disease Family History Medical History Relation Name Comments Colon cancer Father 2 Cancer -colon; Cause of : Cancer -colon Heart attack Maternal Grandmother 2 [place]; C ause of : [place] COPD Mother 2 COPD; Cause of : [...] on file Legal Sex Female 9:08 AM CARDIOLOGY RN Gender Identity Female 01/10/2021 2:50 PM CDT Sexual Orientation Not on file 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 Not on file Not on file Not [...] Assessment 12/02/2022 12/02/2021 Influenza Vaccine (#1) 2023 , 01/17/2021, 01/05/2020, Additional history exists Pneumococcal vaccine 65+ (3 of 3 - PCV20 or PCV21) 01/16/2027 01/16/2022, 03/18/2012 Colon Cancer Screening-Colonoscopy 04/12/2030 04/12/2020 Zoster Vaccine Completed 03/24/2020, 01/05/2020 Colon Cancer Screening-CT Colonography Discontinued 04/12/2020 Colon Cancer Screening-DNA Stool Discontinued 04/12/19 Colon Cancer Screening-FIT Discontinued 04/12/2020 Colon Cancer Screening-Sigmoidoscopy Discontinued 04/12/2020 Medical Devices Implanted Type Area Software Client Architect Device Identifier Shelf Expiration Date Model / Serial / Lot Medtronic Neuro 3058 Interstim Ii 2inx1.7in 4 Electrode Public Safety Telecommunicator Sacral Nerve - [id number] - [id number] Implanted:Qty: 1 on 07/23/2020 by Husam Morales MD at [facility] Neurostimulator Right: Buttocks Medtronic Inc 07/03/2021 [id number] / [id number] / Description:Sub Q upper righ t buttocks [employer] Inc [id number] Interstim 28cm Quadripolar Mri Substation Manager Neurostimulator - Sn/A - [id number] Implanted:Qty: 1 on 07/23/2020 by Husam Morales MD at [facility] Neurostimulator Right: Lumbar-Sac ral Spine Medtronic Inc 10/22/2021 [id number] / N/A / [id number] Description:Right Sacral-3 F oramin Medtronic Inc Generator Neurostimulator Bowel Bladder Recharge Free Interstim X [id number] - [id number] - [id number] Implanted:Qty: 1 on 12/02/2021 by Husam Morales MD at [facility] N/A: Buttocks Medtronic Inc 04/21/2023 [id number] / [id number] [id number] / Medtronic Inc Interstim 28cm Quadripolar Mri Substation Manager Neurostimulator [id number] - [id number] Implanted:Qty: 1 on 12/02/2021 by Husam Morales MD at [facility] N/A: Sacrum Medtronic Inc 02/12/2023 [id number] / / [id number] Procedures Procedure Name Priority Date/Time Associated Diagnosis Comments COLONOSCOPY 04/12/2020 8:43 AM CARDIOLOGY RN DEXA AXIAL SKELETON BONE DENSITY 1 OR MORE SITES Schedule Routine, Read Routine (OP Routine) 04/05/2020 10:47 AM CARDIOLOGY RN Encounter for screening for osteoporosis SCREENING MAMMOGRAM BILATERAL W CRISTOBAL Schedule Routine, Read Routine (OP Routine) 04/24/2019 11:01 AM CARDIOLOGY RN Encounter for screening mammogram for malignant neoplasm of breast from Last 3 Months or Most Recently Relevant to Health Maintenance Results * COLONOSCOPY (04/12/2020 8:43 AM CARDIOLOGY RN) Anatomical Region Laterality Modality Other Narrative Procedure Note Jeniffer Almaraz MD - 04/12/2020 8:43 AM CST [facility] Patient Name: Alisha Arguello Procedure [...] 3 weeks. Procedure Code(s): --- Professional --- 28856, Colonoscopy, flexible; diagnostic, including collection of specimen(s) by brushing or washing,when performed (separate procedure) Diagnosis Code(s): --- Professional --- Z12.11, Encounter for screening for malignantneoplasm of colon K57.30, Diverticulosis of large intestine without perforation or abscess without bleeding CPT copyright 2019 [employer] [place] [employer]. All rights reserved. The codes documented in this report are preliminary and upon certified coder reviewmay be revised to meet current compliance requirements. Naida Almaraz Jeniffer Almaraz M.D. 04/12/2020 9:44:11 AM This report has been electronically signed by the physician. Number of Addenda: 0 Note Initiated On: 04/12/2020 8:43 AM Jeniffer Almaraz MD ENDOSCOPY PROCEDURES Final Result * Dexa Axial Skeleton Bone Density 1 or 2 Site (04/05/2020 10:47 AM CARDIOLOGY RN) Anatomical Region Laterality Modality Body N/A Other 04/05/2020 10:5 8 AM CARDIOLOGY RN Impressions 04/05/2020 10:59 AM CARDIOLOGY RN According to the World Health Organization criteria, [...] signed by: Marika Huerta 04/05/2020 10:59 AM CARDIOLOGY RN COMPLETION DATE: 04/05/2020 11:00 AM ORDERING HEALTHCARE PROVIDER: TERRELL LAY DESCRIPTION: DEXA AXIAL SKELETON BONE DENSITY 1 OR MORE SITES CLINICAL INDICATIONS: Z13.820. COMPARISON: None TECHNIQUE: Dual x-ray absorptiometry (DEXA) was performed using BeeTV system. GENERAL GUIDELINES: According to WHO guidelines, [...] Dual x-ray absorptiometry (DEXA) was performed using BeeTV system. GENERAL GUIDELINES: According to WHO guidelines, [...] by: Jeni Sherwood D.O. Terrell Milton MD IMG DXA PROCEDURES Final Resu lt * Screening Mammogram Bilateral W Cristobal (04/24/2019 11:01 AM CARDIOLOGY RN) Anatomical Region Laterality Modality Breast Bilateral Mammography Narrative 04/25/2019 2:48 PM CARDIOLOGY RN Mammogram Technique: Bilateral Digital Breast Tomosynthesis, Bilateral C-view 2D Screening mammogram. Views obtained: bilateral craniocaudal and bilateral mediolateral oblique. Computer Aided Detection was performed. Mammogram Findings: The present examination has been compared to prior imaging studies performed at [facility] on 11/21/2014, 11/27/2015 and 12/09/2016. There [...] compared to prior imaging studies performed at [facility] on 11/21/2014, 11/27/2015 and 12/09/2016. There are scattered areas of fibroglandular density. There is no suspicious abnormality in either breast. Impression: Annual screening mammography is recommended. OVERALL FINAL ASSESSMENT: BI-RADS CATEGORY 1: Negative. us Self Screening Mammogram IMG MAMMO PROCEDURES Fi nal Result from Last 3 Months or Most Recently Relevant to Health Maintenance Insurance [facility] AETNA MEDICARE GOLD AETNA MEDICARE GOLD MEDICARE SOLUTIONS [facility] MEDICARE Address: [address] [address] [place] [address] Advance Directives For more information, please contact: [phone] * Full Code (Latest Code Status on File) Date Activated Date Inactivated Comments 04/12/2020 8:25 AM 04/12/2020 4:12 PM Care Teams Kelly Machine Operator Relationship Specialty Start Date End Date Herve Wilson MD [facility] [place] [address] PCP - General Family Medicine 10/08/23 Cy Mckinnon DO [address] [place] [id number] Medical Oncologist/Media Aid Hematology and Oncology 10/05/17
--- OUTSIDE RECORDS SUMMARY | 2024-05-15 01:11 | XMS_ITS | Clinical Summary ---
Author Organization [facility] [employer] Address [address] [place] [address] Care Team Providers Care Lead Tinner Name Role Phone Unavailable Primary Care Provider Unavailabl e Source Comments [facility] [employer]non-owned Affiliates and Associated Physician Practices is amultiple site organization consisting of ambulatory clinics and hospital sitesin [place], [place], [place] and [place]. This disclosure is being madepursuant to the Care Everywhere program and may not contain all information available regarding this patient. Last updated 17.[employer] Allergies No known active allergies Medications * [...] Documents on File Type Date Recorded Patient Lab Asst Expl anation Adv Directive/Living Will/POA 06/20/2012 12:56 PM RECOVERY RX
--- OUTSIDE RECORDS SUMMARY | 2024-05-15 01:11 | XMS_ITS | Encounter Summary ---
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
--- OUTSIDE RECORDS SUMMARY | 2024-05-15 01:11 | XMS_ITS | CONTINUITY OF CARE DOCUMENT ---
Author Name makayla, makayla Address Unknown Organization [facility] Address [address] [address] [facility] [address] [place] [address] Phone [phone] Care Team Providers Care Production Specialist Name Role Phone Michael Garcia MD Unavailable Michael Garcia MD Unavailable SANTOS SORIA MD Unavailable [phone] PROBLEMS Condition Status Date Provider Notes Elevated glucose active NELY BOWDEN MD Hyperlipidemia active NELY BOWDEN MD Depression active NELY BOWDEN MD Unspecified hypothyroidism active GABRIELA SAMPSON MD Other and unspecified hyperlipidemia active NELY BOWDEN MD Asthma, unspecified active NELY BOWDEN MD Urinary incontinence active NELY BOWDEN MD Unilateral thyroid lobectomy active GLORIA MORGAN MD Anemia, unspecified active NELY BOWDEN MD Anemia, iron deficiency active Piyush mendez MD Arthritis, rheumatoid, chronic active Dhruv Espinosa MD Cardiology examination active Michael Garcia MD CAD active Michael Garcia MD CHF active Michael Garcia MD Aortic insufficiency active Renae Hernandez NP Hypertension active Renae Hernandez NP ENCOUNTERS Date Type Provider Location Encounter Diag nosis - In-person encounter Office Visit Michael Garcia MD [facility] Aortic insufficiencyHypertension - In-person encounter Office Visit Michael Garcia MD [facility] Cardiology examinationCADCHF - In-person encounter Office Visit NELY BOWDEN MD [facility] - In-person encounter Office Visit NELY BOWDEN MD [facility] - In-person encounter Office Visit NELY BOWDEN MD [facility] - In-person encounter Office Visit NELY BOWDEN MD [facility] - In-person encounter Office Visit NELY BOWDEN MD [facility] - In-person encounter Office Visit NELY BOWDEN MD [facility] - In-person encounter Office Visit NELY BOWDEN MD [facility] - In-person encounter Office Visit NELY BOWDEN MD [facility] - In-person encounter Office Visit NELY BOWDEN MD [facility] - In-person encounter Office Visit NELY BOWDEN MD [facility] - In-person encounter Office Visit NELY BOWDEN MD [facility] - In-person encounter Office Visit NELY BOWDEN MD [facility] - In-person encounter Office Visit NELY BOWDEN MD [facility] - In-person encounter Office Visit NELY BOWDEN MD [facility] - In-person encounter Office Visit NELY BOWDEN MD [facility] - In-person encounter Office Visit NELY BOWDEN MD [facility] - In-person encounter Office Visit NELY BOWDEN MD [facility] - In-person encounter Office Visit NELY BOWDEN MD [facility] - In-person encounter Office Visit NELY BOWDEN MD [facility] - In-person encounter Office Visit NELY BOWDEN MD [facility] - In-person encounter Office Visit NELY BOWDEN MD [facility] - In-person encounter Office Visit NELY BOWDEN MD [facility] - In-person encounter Office Visit Piyush Espinosa MD [facility] - In-person encounter Office Visit NELY BOWDEN MD [facility] - In-person encounter Office Visit NELY BOWDEN MD [facility] - In-person encounter Office Visit Piyush Espinosa MD [facility] - In-person encounter Office Visit NELY BOWDEN MD [facility] - In-person encounter Office Visit Piyush Espinosa MD [facility] Arthritis, rheumatoid, chronic - In-person encounter Office Visit NELY BOWDEN MD [facility] - In-person encounter Office Visit NELY BOWDEN MD [facility] - In-person encounter Office Visit NELY BOWDEN MD [facility] - In-person encounter Office Visit NELY BOWDEN MD [facility] - In-person encounter Office Visit Piyush Espinosa MD [facility] - In-person encounter Office Visit NELY BOWDEN MD [facility] - In-person encounter Office Visit NELY BOWDEN MD [facility] - In-person encounter Office Visit NELY BOWDEN MD [facility] - In-person encounter Office Visit Piyush Espinosa MD [facility] - In-person encounter Office Visit Piyush Espinosa MD [facility] - In-person encounter Office Visit Piyush Espinosa MD [facility] - In-person encounter Office Visit NELY BOWDEN MD [facility] - In-person encounter Office Visit Piyush Espinosa MD [facility] Anemia, iron deficiency - In-person encounter Office Visit NELY BOWDEN MD [facility] - In-person encounter Office Visit NELY BOWDEN MD [facility] - In-person encounter Office Visit NELY BOWDEN MD [facility] - In-person encounter Office Visit NELY BOWDEN MD [facility] - In-person encounter Office Visit Norma Arcos [facility] - In-person encounter Office Visit NELY BOWDEN MD [facility] DepressionUnspecified hypothyroidismOther and unspecified hyperlipidemiaAsthma, unspecifiedUrinary incontinenceUnilateral thyroid lobectomyAnemia, unspecified - In-person encounter Office Visit Norma Arcos [facility] - In-person encounter Office Visit Norma Arcos [facility] - In-person encounter Office Visit NELY BOWDEN MD [facility] - In-person encounter Office Visit Norma Arcos [facility] - In-person encounter Office Visit Norma Arcos [facility] - In-person encounter Office Visit Norma Arcos [facility] - In-person encounter Office Visit Norma Arcos [facility] - In-person encounter Office Visit Norma Arcos [facility] - In-person encounter Office Visit Norma Arcos [facility] - In-person encounter Office Visit Norma Arcos [facility] - In-person encounter Office Visit Norma Arcos [facility] - In-person encounter Office Visit Norma Arcos [facility] VITAL SIGNS Date Observation Value Provider Body Mass Index (Ratio) 44.28 kg/m2 Marya Garcia MD blood pressure, diastolic 97 mm[Hg] Gaurav Mortensen RN blood pressure, systolic 142 mm[Hg] Monica Mortensen RN oxygen saturation, oximetry 94 % Monica Mortensen RN respiratory rate E&M 20 /min Monica nation RN pulse rate 55 /min Monica Mortensen RN weight E&M 258 [lb_av] Monica Mortensen RN Body Mass Index (Ratio) 44.62 kg/m2 Marya Garcia MD blood pressure, cuff size large Ke rri Romeueabby blood pressure, diastolic 80 mm[Hg] Ke rri Romeueneumesh blood pressure, systolic 144 mm[Hg] Nichole Carmichael oxygen saturation, oximetry 94 % Aditi Carmichael respiratory rate E&M 12 /min Aditi lambert pulse rate 61 /min Aditi landon weight E&M 260 [lb_av] Aditi kahner height E&M 64 [in_i] Aditi Lexus lder blood pressure, diastolic 70 mm[Hg] Ke rri Dedeelder blood pressure, systolic 110 mm[Hg] Nichole ri Dayananeedelder pulse rate 61 /min Aditi Dedee lder oxygen saturation, oximetry 96 % Aditi Aguayoelder respiratory rate E&M 16 /min Aditi castellanosnfelder Body Mass Index (Ratio) 49.60 kg/m2 [place] i Dayananeedelder weight E&M 289 [lb_av] Aditi Dedee er blood pressure, diastolic 80 mm[Hg] Ke rri Dedeelder blood pressure, systolic 152 mm[Hg] Nichole ri Dedeelder pulse rate 63 /min Aditi Alberts lder oxygen saturation, oximetry 95 % Aditi Ortegaer respiratory rate E&M 16 /min Aditi Deepika westfallelder Body Mass Index (Ratio) 48.06 kg/m2 [place]ya Aguayoelder weight E&M 280 [lb_av] Aditi Alberts er blood pressure, diastolic 80 mm[Hg] Love Dumont blood pressure, systolic 160 mm[Hg] Melva Dumont pulse rate 74 /min Alessio balderas oxygen saturation, oximetry 96 % Alessio Dumont respiratory rate E&M 18 /min Diogenes Dumont Body Mass Index (Ratio) 47.95 kg/m2 Latanya Dumont weight E&M 279.4 [lb_av] Alessio tesfayeon blood pressure, diastolic 83 mm[Hg] Shane Flores RN blood pressure, systolic 159 mm[Hg] Luis Felipe Flores RN pulse rate 70 /min Luis Felipe Flores RN respiratory rate E&M 18 /min Luis Felipe ramos RN Body Mass Index (Ratio) 49.09 kg/m2 Luis Felipe Flores RN weight E&M 286 [lb_av] Luis Felipe Flores RN blood pressure, diastolic 73 mm[Hg] Me miriam Chavarria blood pressure, systolic 169 mm[Hg] Marizol Chavarria pulse rate 71 /min Renée Chavarria oxygen saturation, oximetry 96 % Renée Chavarria respiratory rate E&M 16 /min Renée Chavarria Body Mass Index (Ratio) 47.82 kg/m2 Aspen Chavarria weight E&M 278.6 [lb_av] Renée Chavarria blood pressure, diastolic 80 mm[Hg] Ish martinezi Amol blood pressure, systolic 140 mm[Hg] Nichole ri Amol pulse rate 70 /min Aditi Alberts lder oxygen saturation, oximetry 96 % Aditi Carmichael respiratory rate E&M 16 /min Aditi lambert Body Mass Index (Ratio) 47.37 kg/m2 [place] Carmicahel weight E&M 276 [lb_av] Aditi Alberts lder blood pressure, diastolic 73 mm[Hg] Love Dumont blood pressure, systolic 143 mm[Hg] Melva Dumont pulse rate 62 /min Alessio balderas oxygen saturation, oximetry 95 % Alessio Dumont respiratory rate E&M 18 /min Diogenes Dumont Body Mass Index (Ratio) 47.06 kg/m2 Latanya Dumont weight E&M 274.2 [lb_av] Alessio guevara blood pressure, diastolic 80 mm[Hg] An edy Hansen blood pressure, systolic 136 mm[Hg] Crystal Hansen pulse rate 60 /min Aneatrpricila Hansen oxygen saturation, oximetry 96 % Aneatris Tyrone respiratory rate E&M 18 /min Lea Hansen Body Mass Index (Ratio) 47.20 kg/m2 Rell Hansen weight E&M 275 [lb_av] Aneatris Tyrone blood pressure, diastolic 70 mm[Hg] Love Dumont blood pressure, systolic 141 mm[Hg] Melva Dumont Body Mass Index (Ratio) 48.43 kg/m2 Latanya Husain Dumont pulse rate 65 /min AlessioLisha Nje andrey oxygen saturation, oximetry 96 % Alessio Njenson respiratory rate E&M 20 /min LatanyaSangita Njenson weight E&M 282.2 [lb_av] Alessio guevara height E&M 64 [in_i] Alessio Ruel andrey ALLERGIES Allergy Name Onset Date Reaction Criticality Status SINGULAIR Low Criticality active RESULTS Date Observation Value Provider Reference Range Interpretation Location hemoglobin A1C, blood, as % of total hemoglobin 5.1 % [facility] 4.8-5.6 basophil count, absolute 0.0 x10E3/uL [facility] 0.0-0.2 Eosinophil Absolute Count 0.2 X10E3/UL [facility] 0.0-0.4 monocyte count, blood, automated 0.5 X10E3/UL [facility] 0.1-0.9 lymphocyte count, blood, automated 2.0 X10E3/UL [facility] 0.7-3.1 Absolute Neutrophils 3.6 X10E3/UL [facility] 1.4-7.0 basophils as percent of blood leukocytes 0 % [facility] Not Estab. eosinophils as percent of blood leukocytes 3 % [facility] Not Estab. monocytes as percent of blood leukocytes 7 % [facility] Not Estab. lymphocytes as percent of blood leukocytes 32 % [facility] Not Estab. neutrophils as percent of blood leukocytes 58 % [facility] Not Estab. platelet count 230 X10E3/UL [facility] [phone]/03/ 21 red blood cell distribution width 16.0 % [facility] 12.3-15.4 High mean corpuscular hemoglobin concentration, RBC 30.6 G/DL [facility] 31.5-35.7 Low mean corpuscular hemoglobin, RBC 26.5 pg [facility] 26.6-33.0 Low mean corpuscular volume, RBC 87 fL [facility] 79-97 hematocrit, blood 39.6 % [facility] 34.0-46.6 hemoglobin, blood 12.1 g/dL [facility] 11.1-15.9 erythrocyte (RBC) count 4.56 X10E6/UL [facility] 3.77-5.28 leukocyte count, blood 6.3 X10E3/UL [facility] 3.4-10.8 B-12, serum >2000 pg/mL [facility] [phone] High free thyroxine index 5.8 [facility] 1.2-4.9 High triiodothyronine resin uptake 37 % [facility] 24-39 thyroxine, serum, total 15.7 ug/dL [facility] 4.5-12.0 High thyroid stimulating hormone, serum <0.006 uIU/mL [facility] 0.450-4.500 Low lipoprotein, beta, serum, point, quantitative, calculated 72 mg/dL [facility] 0-99 very low density lipoproteins 27 mg/dL [facility] 5-40 HDL cholesterol, serum 50 mg/dL [facility] >39 triglyceride, serum, random 137 mg/dL [facility] 0-149 cholesterol, serum 149 mg/dL [facility] [phone]/03/ 21 alanine aminotransferase (SGPT), serum 18 1/L [facility] 0-32 aspartate aminotransferase (SGOT), serum 13 1/L [facility] 0-40 alkaline phosphatase, serum 75 1/L [facility] 39-117 bilirubin, serum, total <0.2 mg/dL [facility] 0.0-1.2 albumin/globulin ratio, serum 1.6 [facility] 1.2-2.2 globulin, serum 2.5 [facility] 1.5-4.5 albumin, serum 3.9 g/dL [facility] 3.6-4.8 protein, total, serum 6.4 g/dL [facility] 6.0-8.5 calcium, serum 9.2 mg/dL [facility] 8.7-10.3 carbon dioxide, venous blood 23 mmol/L [facility] 18-29 chloride, serum 106 mmol/L [facility] 96-106 potassium, serum 4.5 mmol/L [facility] 3.5-5.2 sodium, serum 143 mmol/L [facility] [phone]/03/ 21 urea nitrogen/creatinine ratio, serum 16 [facility] 12-28 eGFR if 96 mL/min/{1.73 _m2} [facility] >59 eGFR if not 84 mL/min/{1.73 _m2} [facility] >59 creatinine, serum 0.77 mg/dL [facility] 0.57-1.00 urea nitrogen, blood 12 mg/dL [facility] 8-27 blood glucose, random 95 mg/dL [facility] 65-99 thyroid stimulating hormone, serum 0.005 ??IU/ML [facility] 0.270 - 4.200 Low very low density lipoproteins 20.8 mg/dL [facility] 5.0 - 40.0 LDL/HDL (low-density lipoprotein/high-de nsity lipoprotein) ratio 1.5 RATIO [facility] - lipoprotein, beta, serum, point, quantitative, calculated 97.2 (?) [facility] 0.0 - 100.0 HDL cholesterol, serum 66.0 mg/dL [facility] 45.0 - 65.0 High cholesterol, serum 184.0 mg/dL [facility] 0.0 - 200.0 triglyceride, serum, fasting 104.0 mg/dL [facility] 0.0 - 150.0 anion gap, serum 14.1 [facility] - albumin/globulin ratio, serum 1.8 g/dL [facility] 1.1 - 2.5 globulin, serum 2.4 [facility] 2.3 - 3.8 urea nitrogen/creatinine ratio, serum 17.1 [facility] - Estimated Glomerular Filtration Rate (calc) 90.7 (?) [facility] 59.0 - chloride, serum 104.9 mmol/L [facility] 98.0 - 107.0 potassium, serum 4.2 mmol/L [facility] 3.5 - 5.1 sodium, serum 141.0 mmol/L [facility] 136.0 - 145.0 creatinine, serum 0.7 mg/dL [facility] 0.5 - 1.0 carbon dioxide, venous blood 22.0 mmol/L [facility] 23.0 - 31.0 Low albumin, serum 4.2 g/dL [facility] 3.5 - 5.2 calcium, serum 9.1 mg/dL [facility] 8.6 - 10.2 aspartate aminotransferase (SGOT), serum 19.0 1/L [facility] 0.0 - 32.0 alkaline phosphatase, serum 84.0 1/L [facility] 40.0 - 130.0 alanine aminotransferase (SGPT), serum 18.0 1/L [facility] 0.0 - 33.0 protein, total, serum 6.6 g/dL [facility] 6.6 - 8.7 bilirubin, serum, total 0.3 mg/dL [facility] 0.0 - 1.2 urea nitrogen, blood 12.0 mg/dL [facility] 8.0 - 23.0 blood glucose, random 90.0 mg/dL [facility] 74.0 - 99.0 red blood cell distribution width, size density 57.3 fL [facility] - immature granulocytes, percentage of total cells, blood 0.6 % [facility] nucleated red blood cells as percent of blood leukocytes 0.0 % [facility] red blood cell (erythrocyte) count, per high power field 0.0 10*3/UL [facility] - eosinophils as percent of blood leukocytes 2.2 % [facility] - neutrophils as percent of blood leukocytes 62.4 % [facility] - Absolute Neutrophils 4.0 CELLS/UL [facility] 1.5 - 7.8 basophils as percent of blood leukocytes 0.5 % [facility] - Absolute Basophils 0.0 [facility]S/[facility] 0.[facility] - 0.2 monocytes as percent of blood leukocytes 7.6 % [facility] - Absolute Monocytes 0.5 [facility] 0[facility] - 1.0 lymphocytes as percent of blood leukocytes 26.7 % [facility] - Absolute Lymphocytes 1.7 CELLS/UL [facility] 0.9 - 3.9 mean platelet volume 12.4 (?) [facility] - platelet count 133.0 THOUSAND/UL [facility] 100.0 - 400.0 mean corpuscular hemoglobin concentration, RBC 29.4 G/DL [facility] 31.0 - 38.0 Low mean corpuscular hemoglobin, RBC 25.9 pg [facility] 25.0 - 35.0 mean corpuscular volume, RBC 88.1 fL [facility] 75.0 - 100.0 hematocrit, blood 40.8 % [facility] 35.0 - 55.0 hemoglobin, blood 12.0 g/dL [facility] 11.5 - 16.5 erythrocyte count, whole blood 4.6 MILLION/UL [facility] 3.5 - 5.5 hemoglobin A1C, blood, as % of total hemoglobin 5.3 % [facility] 4.0 - 5.6 thyroid stimulating hormone, serum 0.005 ??IU/ML [facility] 0.270 - 4.200 Low ferritin, serum 80.5 ng/mL [facility] 13.0 - 150.0 anion gap, serum 12.7 [facility] - albumin/globulin ratio, serum 1.8 g/dL [facility] 1.1 - 2.5 globulin, serum 2.3 [facility] 2.3 - 3.8 urea nitrogen/creatinine ratio, serum 25.0 [facility] - Estimated Glomerular Filtration Rate (calc) 108.4 (?) [facility] 59.0 - chloride, serum 106.3 mmol/L [facility] 98.0 - 107.0 potassium, serum 4.1 mmol/L [facility] 3.5 - 5.1 sodium, serum 141.0 mmol/L [facility] 136.0 - 145.0 creatinine, serum 0.6 mg/dL [facility] 0.5 - 1.0 carbon dioxide, venous blood 22.0 mmol/L [facility] 23.0 - 31.0 Low albumin, serum 4.1 g/dL [facility] 3.5 - 5.2 calcium, serum 8.9 mg/dL [facility] 8.6 - 10.2 aspartate aminotransferase (SGOT), serum 17.0 1/L [facility] 0.0 - 32.0 alkaline phosphatase, serum 72.0 1/L [facility] 40.0 - 130.0 alanine aminotransferase (SGPT), serum 17.0 1/L [facility] 0.0 - 33.0 protein, total, serum 6.4 g/dL [facility] 6.6 - 8.7 Low bilirubin, serum, total 0.2 mg/dL [facility] 0.0 - 1.2 urea nitrogen, blood 15.0 mg/dL [facility] 6.0 - 20.0 blood glucose, random 91.0 mg/dL [facility] 74.0 - 99.0 red blood cell distribution width, size density 46.9 fL [facility] - immature granulocytes, percentage of total cells, blood 0.3 % [facility] - nucleated red blood cells as percent of blood leukocytes 0.0 % [facility] - red blood cell (erythrocyte) count, per high power field 0.0 10*3/UL [facility] - eosinophils as percent of blood leukocytes 2.3 % [facility] - neutrophils as percent of blood leukocytes 69.5 % [facility] - Absolute Neutrophils 4.5 CELLS/UL [facility] 1.5 - 7.8 basophils as percent of blood leukocytes 0.3 % [facility] - Absolute Basophils 0.0 CELLS/UL [facility] 0.0 - 0.2 monocytes as percent of blood leukocytes 8.4 % [facility] - Absolute Monocytes 0.6 CELLS/UL [facility] 0.2 - 1.0 lymphocytes as percent of blood leukocytes 19.2 % [facility] - Absolute Lymphocytes 1.3 CELLS/UL [facility] 0.9 - 3.9 mean platelet volume 11.6 (?) [facility] - platelet count 257.0 THOUSAND/UL [facility] 100.0 - 400.0 mean corpuscular hemoglobin concentration, RBC 29.0 G/DL [facility] 31.0 - 38.0 Low mean corpuscular hemoglobin, RBC 27.2 pg [facility] 25.0 - 35.0 mean corpuscular volume, RBC 93.6 fL [facility] 75.0 - 100.0 hematocrit, blood 39.6 % [facility] 35.0 - 55.0 hemoglobin, blood 11.5 g/dL [facility] 11.5 - 16.5 erythrocyte count, whole blood 4.2 MILLION/UL [facility] 3.5 - 5.5 iron, serum 42.0 ug/dL [facility] 25.0 - 156.0 iron saturation percent, serum 13.5 % [facility] 20.0 - 50.0 Low iron binding capacity, total 312.2 ug/dL [facility] 250.0 - 450.0 thyroid stimulating hormone, serum 0.123 ??IU/ML [facility] 0.270 - 4.200 Low ferritin, serum 91.0 ng/mL [facility] 13.0 - 150.0 red blood cell distribution width, size density 59.3 fL [facility] - immature granulocytes, percentage of total cells, blood 0.3 % [facility] - nucleated red blood cells as percent of blood leukocytes 0.0 % [facility] - red blood cell (erythrocyte) count, per high power field 0.0 10*3/UL [facility] eosinophils as percent of blood leukocytes 3.8 % [facility] - neutrophils as percent of blood leukocytes 60.2 % [facility] - Absolute Neutrophils 3.9 CELLS/UL [facility] 1.5 - 7.8 basophils as percent of blood leukocytes 0.8 % [facility] - Absolute Basophils 0.1 CELLS/UL [facility] 0.0 - 0.2 monocytes as percent of blood leukocytes 7.1 % [facility] - Absolute Monocytes 0.5 CELLS/UL [facility] 0.2 - 1.0 lymphocytes as percent of blood leukocytes 27.8 % [facility] - Absolute Lymphocytes 1.8 CELLS/UL [facility] 0.9 - 3.9 mean platelet volume 11.6 (?) [facility] - platelet count 250.0 THOUSAND/UL [facility] 100.0 - 400.0 mean corpuscular hemoglobin concentration, RBC 29.7 G/DL [facility] 31.0 - 38.0 Low mean corpuscular hemoglobin, RBC 27.2 pg [facility] 25.0 - 35.0 mean corpuscular volume, RBC 91.6 fL [facility] 75.0 - 100.0 hematocrit, blood 42.4 % [facility] 35.0 - 55.0 hemoglobin, blood 12.6 g/dL [facility] 11.5 - 16.5 erythrocyte count, whole blood 4.6 MILLION/UL [facility] 3.5 - 5.5 iron, serum 63.0 ug/dL [facility] 25.0 - 156.0 iron saturation percent, serum 20.6 % [facility] 20.0 - 50.0 iron binding capacity, total 305.2 ug/dL [facility] 250.0 - 450.0 thyroid stimulating hormone, serum 0.005 ??IU/ML [facility] 0.270 - 4.200 Low ferritin, serum 66.5 ng/mL [facility] 13.0 - 150.0 anion gap, serum 12.9 [facility] - albumin/globulin ratio, serum 2.4 g/dL [facility] 1.1 - 2.5 globulin, serum 2.8 [facility] 2.3 - 3.8 urea nitrogen/creatinine ratio, serum 14.3 [facility] - Estimated Glomerular Filtration Rate (calc) 90.7 (?) [facility] 59.0 - chloride, serum 104.1 mmol/L [facility] 98.0 - 107.0 potassium, serum 4.0 mmol/L [facility] 3.5 - 5.1 sodium, serum 140.0 mmol/L [facility] 136.0 - 145.0 creatinine, serum 0.7 mg/dL [facility] 0.5 - 1.0 carbon dioxide, venous blood 23.0 mmol/L [facility] 23.0 - 31.0 albumin, serum 4.0 g/dL [facility] 3.5 - 5.2 calcium, serum 9.1 mg/dL [facility] 8.6 - 10.2 aspartate aminotransferase (SGOT), serum 16.0 1/L [facility] 0.0 - 32.0 alkaline phosphatase, serum 83.0 1/L [facility] 40.0 - 130.0 alanine aminotransferase (SGPT), serum 15.0 1/L [facility] 0.0 - 33.0 protein, total, serum 6.8 g/dL [facility] 6.6 - 8.7 bilirubin, serum, total 0.2 mg/dL [facility] 0.0 - 1.2 urea nitrogen, blood 10.0 mg/dL [facility] 6.0 - 20.0 blood glucose, random 90.0 mg/dL [facility] 74.0 - 99.0 red blood cell distribution width, size density 55.3 fL [facility] - immature granulocytes, percentage of total cells, blood 0.7 % [facility] - nucleated red blood cells as percent of blood leukocytes 0.0 % [facility] - red blood cell (erythrocyte) count, per high power field 0.0 10*3/UL [facility] - eosinophils as percent of blood leukocytes 3.2 % [facility] - neutrophils as percent of blood leukocytes 58.6 % [facility] - Absolute Neutrophils 3.5 CELLS/UL [facility] 1.5 - 7.8 basophils as percent of blood leukocytes 0.5 % [facility] Absolute Basophils 0.0 CELLS/UL [facility] 0.0 - 0.2 monocytes as percent of blood leukocytes 6.7 % [facility] - Absolute Monocytes 0.4 CELLS/UL [facility] 0.2 - 1.0 lymphocytes as percent of blood leukocytes 30.3 % [facility] - Absolute Lymphocytes 1.8 CELLS/UL [facility] 0.9 - 3.9 mean platelet volume 11.4 (?) [facility] - platelet count 252.0 THOUSAND/UL [facility] 100.0 - 400.0 mean corpuscular hemoglobin concentration, RBC 28.5 G/DL [facility] 31.0 - 38.0 Low mean corpuscular hemoglobin, RBC 24.9 pg [facility] 25.0 - 35.0 Low mean corpuscular volume, RBC 87.6 fL [facility] 75.0 - 100.0 hematocrit, blood 41.1 % [facility] 35.0 - 55.0 hemoglobin, blood 11.7 g/dL [facility] 11.5 - 16.5 erythrocyte count, whole blood 4.7 MILLION/UL [facility] 3.5 - 5.5 iron, serum 48.0 ug/dL [facility] 25.0 - 156.0 iron saturation percent, serum 15.0 % [facility] 20.0 - 50.0 Low iron binding capacity, total 320.6 ug/dL [facility] 250.0 - 450.0 reticulocyte count, absolute 0.073 10*6 CELLS/UL [facility] - reticulocyte count, blood, uncorrected 1.56 % [facility] 0.50 - 2.00 thyroid stimulating hormone, serum 0.005 ??IU/ML [facility] 0.270 - 4.200 Low very low density lipoproteins 24.0 mg/dL [facility] 5.0 - 40.0 LDL/HDL (low-density lipoprotein/high-de nsity lipoprotein) ratio 1.4 RATIO [facility] - lipoprotein, beta, serum, point, quantitative, calculated 71.0 (?) [facility] 0.0 - 100.0 HDL cholesterol, serum 50.0 mg/dL [facility] 45.0 - 65.0 cholesterol, serum 145.0 mg/dL [facility] 0.0 - 200.0 triglyceride, serum, fasting 120.0 mg/dL [facility] 0.0 - 150.0 ferritin, serum 62.2 ng/mL [facility] 13.0 - 150.0 iron binding capacity, total 236.0 (?) [facility] - iron, serum 33.0 ug/dL [facility] 25.0 - 156.0 iron binding capacity, unsaturated 203.0 ??G/DL [facility] 112.0 - 347.0 anion gap, serum 11.5 [facility] - albumin/globulin ratio, serum 2.4 g/dL [facility] 1.1 - 2.5 globulin, serum 2.4 [facility] 2.3 - 3.8 urea nitrogen/creatinine ratio, serum 21.7 [facility] - Estimated Glomerular Filtration Rate (calc) 108.8 (?) [facility] 59.0 - chloride, serum 106.5 mmol/L [facility] 98.0 - 107.0 potassium, serum 3.9 mmol/L [facility] 3.5 - 5.1 sodium, serum 142.0 mmol/L [facility] 136.0 - 145.0 creatinine, serum 0.6 mg/dL [facility] 0.5 - 1.0 carbon dioxide, venous blood 24.0 mmol/L [facility] 22.0 - 29.0 albumin, serum 3.9 g/dL [facility] 3.5 - 5.2 calcium, serum 9.3 mg/dL [facility] 8.6 - 10.2 aspartate aminotransferase (SGOT), serum 20.0 1/L [facility] 0.0 - 32.0 alkaline phosphatase, serum 81.0 1/L [facility] 40.0 - 130.0 alanine aminotransferase (SGPT), serum 17.0 1/L [facility] 0.0 - 33.0 protein, total, serum 6.3 g/dL [facility] 6.6 - 8.7 Low bilirubin, serum, total 0.2 mg/dL [facility] 0.0 - 1.2 urea nitrogen, blood 13.0 mg/dL [facility] 6.0 - 20.0 blood glucose, random 83.0 mg/dL [facility] 74.0 - 99.0 red blood cell distribution width, size density 48.5 fL [facility] immature granulocytes, percentage of total cells, blood 0.2 % [facility] nucleated red blood cells as percent of blood leukocytes 0.0 % [facility] red blood cell (erythrocyte) count, per high power field 0.0 10*3/UL [facility] - eosinophils as percent of blood leukocytes 7.6 % [facility] neutrophils as percent of blood leukocytes 50.5 % [facility] Absolute Neutrophils 2.9 CELLS/UL [facility] 1.5 - 7.8 basophils as percent of blood leukocytes 0.4 % [facility] Absolute Basophils 0.0 CELLS/UL [facility] 0.0 - 0.2 monocytes as percent of blood leukocytes 9.0 % [facility] - Absolute Monocytes 0.5 CELLS/UL [facility] 0.2 - 1.0 lymphocytes as percent of blood leukocytes 32.3 % [facility] Absolute Lymphocytes 1.8 CELLS/UL [facility] 0.9 - 3.9 mean platelet volume 11.5 (?) [facility] platelet count 262.0 THOUSAND/UL [facility] 100.0 - 400.0 mean corpuscular hemoglobin concentration, RBC 28.9 G/DL [facility] 31.0 - 38.0 Low mean corpuscular hemoglobin, RBC 24.7 pg [facility] 25.0 - 35.0 Low mean corpuscular volume, RBC 85.4 fL [facility] 75.0 - 100.0 hematocrit, blood 39.1 % [facility] 35.0 - 55.0 hemoglobin, blood 11.3 g/dL [facility] 11.5 - 16.5 Low erythrocyte count, whole blood 4.6 MILLION/UL [facility] 3.5 - 5.5 hemoglobin A1C, blood, as % of total hemoglobin 5.1 % [facility] 4.0 - 6.0 thyroid stimulating hormone, serum 0.005 ??IU/ML [facility] 0.270 - 4.200 Low very low density lipoproteins 27.4 mg/dL [facility] 5.0 - 40.0 LDL/HDL (low-density lipoprotein/high-de nsity lipoprotein) ratio 1.2 RATIO [facility] - lipoprotein, beta, serum, point, quantitative, calculated 76.6 (?) [facility] 0.0 - 100.0 HDL cholesterol, serum 62.0 mg/dL [facility] 45.0 - 65.0 cholesterol, serum 166.0 mg/dL [facility] 0.0 - 200.0 triglyceride, serum, fasting 137.0 mg/dL [facility] 0.0 - 150.0 ferritin, serum 107.8 ng/mL [facility] 13.0 - 150.0 iron binding capacity, total 239.0 (?) [facility] - iron, serum 38.0 ug/dL [facility] 25.0 - 156.0 iron binding capacity, unsaturated 201.0 ??G/DL [facility] 112.0 - 347.0 anion gap, serum 13.2 [facility] - albumin/globulin ratio, serum 2.5 g/dL [facility] 1.1 - 2.5 High globulin, serum 2.6 [facility] 2.3 - 3.8 urea nitrogen/creatinine ratio, serum 20.0 [facility] - Estimated Glomerular Filtration Rate (calc) 91.0 (?) [facility] 59.0 - chloride, serum 107.8 mmol/L [facility] 98.0 - 107.0 High potassium, serum 3.9 mmol/L [facility] 3.5 - 5.1 sodium, serum 144.0 mmol/L [facility] 136.0 - 145.0 creatinine, serum 0.7 mg/dL [facility] 0.5 - 1.0 carbon dioxide, venous blood 23.0 mmol/L [facility] 22.0 - 29.0 albumin, serum 4.1 g/dL [facility] 3.5 - 5.2 calcium, serum 8.9 mg/dL [facility] 8.6 - 10.2 aspartate aminotransferase (SGOT), serum 15.0 1/L [facility] 0.0 - 32.0 alkaline phosphatase, serum 81.0 1/L [facility] 40.0 - 130.0 alanine aminotransferase (SGPT), serum 16.0 1/L [facility] 0.0 - 33.0 protein, total, serum 6.7 g/dL [facility] 6.6 - 8.7 bilirubin, serum, total 0.2 mg/dL [facility] 0.0 - 1.2 urea nitrogen, blood 14.0 mg/dL [facility] 6.0 - 20.0 blood glucose, random 131.0 mg/dL [facility] 74.0 - 99.0 High red blood cell distribution width, size density 52.7 fL [facility] - mean platelet volume 11.6 (?) [facility] - platelet count 285.0 THOUSAND/UL [facility] 100.0 - 400.0 mean corpuscular hemoglobin concentration, RBC 28.2 G/DL [facility] 31.0 - 38.0 Low mean corpuscular hemoglobin, RBC 24.7 pg [facility] 25.0 - 35.0 Low mean corpuscular volume, RBC 87.8 fL [facility] 75.0 - 100.0 hematocrit, blood 41.2 % [facility] 35.0 - 55.0 hemoglobin, blood 11.6 g/dL [facility] 11.5 - 16.5 erythrocyte count, whole blood 4.7 MILLION/UL [facility] 3.5 - 5.5 hemoglobin A1C, blood, as % of total hemoglobin 5.6 % [facility] 4.0 - 6.0 reticulocyte count, absolute 0.060 10*6 CELLS/UL [facility] - reticulocyte count, blood, uncorrected 1.29 % [facility] 0.50 - 2.00 red blood cell distribution width, size density 56.5 fL [facility] - immature granulocytes, percentage of total cells, blood 0.3 % [facility] - nucleated red blood cells as percent of blood leukocytes 0.0 % [facility] - red blood cell (erythrocyte) count, per high power field 0.0 10*3/UL [facility] - eosinophils as percent of blood leukocytes 2.3 % [facility] - neutrophils as percent of blood leukocytes 75.6 % [facility] - Absolute Neutrophils 5.6 CELLS/UL [facility] 1.5 - 7.8 basophils as percent of blood leukocytes 0.4 % [facility] - Absolute Basophils 0.0 CELLS/UL [facility] 0.0 - 0.2 monocytes as percent of blood leukocytes 5.7 % [facility] - Absolute Monocytes 0.4 CELLS/UL [facility] 0.2 - 1.0 lymphocytes as percent of blood leukocytes 15.7 % [facility] - Absolute Lymphocytes 1.2 CELLS/UL [facility] 0.9 - 3.9 mean platelet volume 11.6 (?) [facility] - platelet count 269.0 THOUSAND/UL [facility] 100.0 - 400.0 mean corpuscular hemoglobin concentration, RBC 28.7 G/DL [facility] 31.0 - 38.0 Low mean corpuscular hemoglobin, RBC 24.8 pg [facility] 25.0 - 35.0 Low mean corpuscular volume, RBC 86.6 fL [facility] 75.0 - 100.0 hematocrit, blood 40.1 % [facility] 35.0 - 55.0 hemoglobin, blood 11.5 g/dL [facility] 11.5 - 16.5 erythrocyte count, whole blood 4.6 MILLION/UL [facility] 3.5 - 5.5 iron binding capacity, unsaturated 192.0 ??G/DL [facility] 112.0 - 347.0 ferritin, serum 97.9 ng/mL [facility] 13.0 - 150.0 iron binding capacity, total 230.0 (?) [facility] - iron, serum 38.0 ug/dL [facility] 25.0 - 156.0 red blood cell distribution width, size density 59.4 fL [facility] - immature granulocytes, percentage of total cells, blood 0.4 % [facility] - nucleated red blood cells as percent of blood leukocytes 0.0 % [facility] - red blood cell (erythrocyte) count, per high power field 0.0 10*3/UL [facility] - eosinophils as percent of blood leukocytes 5.6 % [facility] - neutrophils as percent of blood leukocytes 41.9 % [facility] - Absolute Neutrophils 1.9 CELLS/UL [facility] 1.5 - 7.8 basophils as percent of blood leukocytes 0.4 % [facility] - Absolute Basophils 0.0 CELLS/UL [facility] 0.0 - 0.2 monocytes as percent of blood leukocytes 11.4 % [facility] - Absolute Monocytes 0.5 CELLS/UL [facility] 0.2 - 1.0 lymphocytes as percent of blood leukocytes 40.3 % [facility] Absolute Lymphocytes 1.8 CELLS/UL [facility] 0.9 - 3.9 mean platelet volume 11.5 (?) [facility] - platelet count 231.0 THOUSAND/UL [facility] 100.0 - 400.0 mean corpuscular hemoglobin concentration, RBC 28.3 G/DL [facility] 31.0 - 38.0 Low mean corpuscular hemoglobin, RBC 24.1 pg [facility] 25.0 - 35.0 Low mean corpuscular volume, RBC 85.2 fL [facility] 75.0 - 100.0 hematocrit, blood 37.5 % [facility] 35.0 - 55.0 hemoglobin, blood 10.6 [facility] - 16.5 Low erythrocyte count, whole blood 4.4 MILLION/UL [facility] 3.5 - 5.5 iron binding capacity, unsaturated 204.0 ??G/DL [facility] 112.0 - 347.0 ferritin, serum 129.8 ng/mL [facility] 13.0 - 150.0 iron binding capacity, total 242.0 (?) [facility] - iron, serum 38.0 ug/[facility] 25.0 - 156.0 red blood cell distribution width, size density 62.4 fL [facility] - immature granulocytes, percentage of total cells, blood 0.4 % [facility] - nucleated red blood cells as percent of blood leukocytes 0.0 % [facility] - red blood cell (erythrocyte) count, per high power field 0.0 10*3/UL [facility] - eosinophils as percent of blood leukocytes 4.3 % [facility] - neutrophils as percent of blood leukocytes 64.7 % [facility] - Absolute Neutrophils 5.3 CELLS/UL [facility] 1.5 - 7.8 basophils as percent of blood leukocytes 0.2 % [facility] - Absolute Basophils 0.0 CELLS/UL [facility] 0.0 - 0.2 monocytes as percent of blood leukocytes 7.2 % [facility] - Absolute Monocytes 0.6 CELLS/UL [facility] 0.2 - 1.0 lymphocytes as percent of blood leukocytes 23.2 % [facility] - Absolute Lymphocytes 1.9 CELLS/UL [facility] 0.9 - 3.9 mean platelet volume 11.3 (?) [facility] - platelet count 303.0 THOUSAND/UL [facility] 100.0 - 400.0 mean corpuscular hemoglobin concentration, RBC 27.8 G/DL [facility] 31.0 - 38.0 Low mean corpuscular hemoglobin, RBC 23.7 pg [facility] 25.0 - 35.0 Low mean corpuscular volume, RBC 85.0 fL [facility] 75.0 - 100.0 hematocrit, blood 33.4 % [facility] 35.0 - 55.0 Low hemoglobin, blood 9.3 g/dL [facility] 11.5 - 16.5 Low erythrocyte count, whole blood 3.9 MILLION/UL [facility] 3.5 - 5.5 ferritin, serum 152.2 ng/mL [facility] 13.0 - 150.0 High red blood cell distribution width, size density 65.1 fL [facility] - immature granulocytes, percentage of total cells, blood 0.5 % [facility] red blood cells as percent of blood leukocytes 0.0 % [facility] - red blood cell (erythrocyte) count, per high power field 0.0 10*3/UL [facility] - eosinophils as percent of blood leukocytes 3.3 % [facility] - neutrophils as percent of blood leukocytes 50.6 % [facility] - Absolute Neutrophils 3.4 CELLS/UL [facility] 1.5 - 7.8 basophils as percent of blood leukocytes 0.5 % [facility] - Absolute Basophils 0.0 CELLS/UL [facility] 0.0 - 0.2 monocytes as percent of blood leukocytes 8.7 % [facility] - Absolute Monocytes Complains of indigestion/ heartburn; Denies nausea, vomiting, diarrhea, constipation , abdominal pain, jaundice, gas/bloating [facility] 0.2 - 1.0 lymphocytes as percent of blood leukocytes 36.4 % [facility] - Absolute Lymphocytes 2.4 CELLS/UL [facility] 0.9 - 3.9 mean platelet volume 11.8 (?) [facility] - platelet count 268.0 THOUSAND/UL [facility] 100.0 - 400.0 mean corpuscular hemoglobin concentration, RBC 27.7 G/DL [facility] 31.0 - 38.0 Low mean corpuscular hemoglobin, RBC 23.3 pg [facility] 25.0 - 35.0 Low mean corpuscular volume, RBC 84.2 fL [facility] 75.0 - 100.0 hematocrit, blood 37.2 % [facility] 35.0 - 55.0 hemoglobin, blood 10.3 g/dL [facility] 11.5 - 16.5 Low erythrocyte count, whole blood 4.4 MILLION/UL [facility] 3.5 - 5.5 iron binding capacity, unsaturated 196.0 ??G/DL [facility] 112.0 - 347.0 ferritin, serum 267.7 ng/mL [facility] 13.0 - 150.0 High iron binding capacity, total 229.0 (?) [facility] - iron, serum 33.0 ug/dL [facility] 25.0 - 156.0 HISTORY OF MEDICATION USE Medication Status Instructions Dates Provider Indications Com ments lisinopril 20 mg tablet active 1 tablet twice a day Renae Hernandez NP Enbrel SureClick 50 mg/mL (1 mL) pen injector active Take 1 once a week Aditi Carmichael Enbrel 50 mg/mL (1 mL) syringe active once a week Aditi Carmichael lisinopril 10 mg tablet completed 1 tablet twice a day - Renae Hernandez NP REMICADE 100 MG INTRAVENOUS SOLUTION RECONSTITUTED completed every 8 weeks - Piyush Espinosa MD clobetasol-emolli ent 0.05% cream active as directed Aditi Carmichael Topamax 100 mg tablet active three times a day Aditi Carmichael lansoprazole 30 mg capsule,delayed release(DR/EC) active once a day Aditi Carmichael ProAir HFA 90 mcg/actuation HFA aerosol inhaler active as needed Aditi Carmichael Cymbalta 60 mg capsule,delayed release(DR/EC) active once a day Aditi Carmichael citalopram 40 mg tablet active once a day Aditi Carmichael CELEXA 10 MG ORAL TABLET completed 3 times daily - [facility] Trileptal 300 mg tablet active 1 tablet once a day Aditi Carmichael Wellbutrin SR 200 mg tablet sustained-release 12 hr active 1 tablet once a day Aditi Carmichael RISPERDAL 2 MG ORAL TABLET completed ONE TABLET IN THE EVENING PRESCRIBED BY DR OTERO - Alessio Dumont REQUIP 1 MG ORAL TABLET active 1 tablet once a day Aditi Carmichael leflunomide 20 mg tablet active 1 tablet once a day Aditi Carmichael PREDNISONE 10 MG ORAL TABLET completed 1 1/2 TABLET IN THE MONRING 1 TABLET IN THE EVENING PRESCRIBED BY DR VALDEZ - Alessio Dumont tramadol 50 mg tablet active 1 tablet twice a day Aditi Carmichael oxybutynin chloride 10 mg tablet extended release 24hr active 1 tablet once a day Aditi Amol Levoxyl 112 mcg tablet active Take 1 once a day Aditi Carmichael atorvastatin 20 mg tablet active once a day Aditi Carmichael NEXIUM 40 MG ORAL CAPSULE DELAYED RELEASE completed ONE TAB. DAILY - Alessio Dumont ALBUTEROL SULFATE (2.5 MG/3ML) 0.083% INHALATION NEBULIZATION SOLUTION completed TAKE NEEDED - Alessio Dumont FERROUS SULFATE 325 (65 Fe) MG ORAL TABLET completed ONE TABLET THREE TIMES DAILY - Aditi Carmichael CYANOCOBALAMIN 1000 MCG/ML INJECTION SOLUTION completed INJECT DIRECTED - Alessio Dumont CEPHALEXIN 500 MG ORAL TABLET completed one tab 4 times daily - NELY BOWDEN MD SOCIAL HISTORY Date Observation Value Provider personal history of marijuana use no Renae Hernandez NP smoking history, tot al pack/day 0.75 Renae Hernandez NP drug use no Renae Hernandez NP alcohol use no Renae Hernandez NP smoking/tobacco cess ation, patient education and counseling yes Renae Hernandez NP cigarette use yes Renae Hernandez NP smoking status Current every day smoker V darci Hernandez NP drug use no Michael Garcia MD alcohol use no Michael Garcia MD cigarette use yes Michael Mendez smoking status Current every day smoker U leeroy Garcia MD social history reviewed E&M revi ewed - no changes required Piyush Espinosa MD alcohol use no Aditi landon cigarette use yes Aditi hamilton smoking status Former smoker Aditi Perera nfelder smoking status Former smoker Piyush mendez MD social history reviewed E&M revi ewed - no changes required Piyush Espinosa MD social history reviewed E&M revi ewed - no changes required Piyush Espinosa MD alcohol use no Alessio Lipscomb nson cigarette use yes Alessio guevara smoking status Former smoker Alessio Ashford smoking/tobacco cess ation, patient education and counseling yes Piyush Espinosa MD alcohol use no Piyush Mendez cigarette use yes Piyush Espinosa MD smoking status Former smoker Piyush mendez MD social history reviewed E&M revi ewed - no changes required Piyush Espinosa MD social history reviewed E&M revi ewed - no changes required Piyush Espinosa MD social history reviewed E&M revi ewed - no changes required Piyush Espinosa MD alcohol use no Alessio Lipscomb bettyrocio cigarette use yes Alessio guevara smoking status Former smoker Alessio Ashford alcohol use no Piyush Mendez cigarette use yes Piyush Espinosa MD smoking status Former smoker Piyush mendez MD social history reviewed E&M revi ewed - no changes required Piyush Espinosa MD smoking/tobacco cess ation, patient education and counseling yes Piyush Espinosa MD social history reviewed E&M revi ewed - no changes required Piyush Espinosa MD social history E&M 1 ppd x 25 ye ars; quit 9 years ago S mara for 22 years P atient is a former smoker. A lcohol Use - no Smoking History: P atient is a former smoker. Piyush Espinosa MD cigarette use yes Alessio guevara smoking status Former smoker Piyush mendez MD FUNCTIONAL STATUS Date Observation Value Provider HRA, CV Assess/Plan, Angina (inactive) Management Plan continue current therapy, antianginal therapy Renae Hernandez NP HRA, CV Assess/Plan, Angina (inactive) Management Plan continue current therapy Michael Garcia MD FAMILY HISTORY Family Member Condition Father Family History of Co marci Cancer Mother Family History of Ot her Diseases INSURANCE PROVIDERS Payer name Policy type / Coverage type [employer] ID A[employer] MEDICARE ADVANTAGE [facility] (PPO) Medicare [id number] ADVANCE DIRECTIVES Name Date DISCUSSED - NO DECISION MADE TREATMENT PLAN Date Name Performer Cardiology: Eliot solano has history of coronary atherosclerosis, worsening symptoms of chest pain and shortness of breath, BMI>35, and is unable to exercise on treadmill long enough to achieve target heartrate. I am ordering a Stress PET-CT to further evaluate. Renae Hernandez NP Cardiology: A waiting records from previous provider. P atanisha c/o shortness of breath with with exertion W ill check labs P relimanry echo results from this am with mod AI Renae Hernandez NP Cardiology: B P today: 142/97 P rior BP: 144/80 (11/05/2023) Will increase Lisinopril to 20 mg BID Renae Hernandez NP Cardiology: H er updated medication list for this problem includes: Atorvastatin 20 Mg Tablet (Atorvastatin) ..... Once a day Renae Hernandez NP Cardiology: m od per echo echo done today Renae Hernandez NP Cardiology: H er updated medication list for this problem includes: Atorvastatin 20 Mg Tablet (Atorvastatin) ..... Once a day Michael Garcia MD Cardiology:WIll obta in her cath, echo, and stress testing from [facility] echo to assess LV systolic function and valvular funciton Michael Garcia MD Cardiology:WIll obta in her cath, echo, and stress testing from [facility] MD Hem/Onc Follow up:Th e patient complains of fatigue and weight gain. Given these symptoms, I will not decrease her levothyroxine any further despite her TSH still being suppressed. I will repeat TSH with reflext FT4 upon return visit. Orders: T SH reflex FT4 ([id number]) 9 9214 MOD Complex (CPT-61361) Piyush Espinosa MD Hem/Onc Follow up:Th e patient's iron stores remain repleted. She will conitnue every two month IV iron infusions. She will return in three months for follow up and repeat iron stores. Orders: S NOMED-CT: [id number] Current Medications Documented (SCT-[id number]) C BC (INCLUDES DIFF/PLT) (6399) C OMPREHENSIVE METABOLIC PANEL W/EGFR (33895) F ERRITIN (457) I EVER AND TOTAL IRON BINDING CAPACITY (7573) 9 9214 MOD Complex (CPT-62064) Piyush Espinosa MD Hem/Onc Follow up :T he patient has not had repeat thyroid studies. Recheck TSH. Defer adjustment in thyroid medication to Dr. Bowden. Orders: T SH + Free T4 ([id number]) C BC (INCLUDES DIFF/PLT) (6399) F ERRITIN (457) I EVER AND TOTAL IRON BINDING CAPACITY (7573) 9 9214 MOD Complex ([id number]) Piyush Espinosa MD Hem/Onc Follow up :T he patient's hemoglobin remains stable on a every two month IV iron infusion. She will continue current schedule. She will return in three months for follow up. Labs 1 week prior to office visit. Orders: C BC (INCLUDES DIFF/PLT) (6399) F ERRITIN (457) I EVER AND TOTAL IRON BINDING CAPACITY (7573) 9 9214 MOD Complex (CPT-[id number]) Piyush Espinosa MD Hem/Onc:I have decre ased her levothyroxine dose to 150 mcg po daily. She will need repeat TSH in 4-6 weeks. Piyush Espinosa MD Hem/Onc:Ms. Arguello is doing well. Her iron stores have been repleted. Her Hgb has been normal. She will continue maintenance IV iron every two months. She will return in two months for follow up. Repeat iron stores 1 week prior to office visit. Orders: S NOMED-CT: [id number] Current Medications Documented (SCT-[id number]) C BC (INCLUDES DIFF/PLT) (6399) C OMPREHENSIVE METABOLIC PANEL W/EGFR (19774) F ERRITIN (457) I EVER AND TOTAL IRON BINDING CAPACITY (7573) R ETICULOCYTE COUNT, MANUAL (8699) 9 2914 MOD Complex (CPT-36461) Piyush Espinosa MD Hem/Onc:Her Hgb has normalized. Her transferrin saturation is improved but still less than 20%. I will change her IV iron infusion to every two months. She will return in three months for follow up. Labwork 1 week prior to office visit. Orders: C BC (INCLUDES DIFF/PLT) (6399) C OMPREHENSIVE METABOLIC PANEL W/EGFR (33479) R ETICULOCYTE COUNT, MANUAL (8699) I EVER AND TOTAL IRON BINDING CAPACITY (7573) F ERRITIN (457) 9 1396 LTD. Complex (CPT-[id number]) Piyush Espinosa MD Hem/Onc Follow up :Anna Arguello's Hgb has improved. Her energy is improving and fingernails are less brittle. Her bone marrow biopsy showed normal trilineage hematopoiesis but with low iron stores. She will continue monthly IV venofer infusions. She will return in three months for follow up. If iron stores and CBC are improved at that time, we may be able to taper to every two month infusions. F uture Orders: F ERRITIN (457) ... 04/15/2015 C BC (INCLUDES DIFF/PLT) (6399) ... 04/15/2015 I EVER AND TOTAL IRON BINDING CAPACITY (7573) ... 04/15/2015 R ETICULOCYTE COUNT, MANUAL (8699) ... 04/15/2015 Piyush Espinosa MD Hem/Onc:The patient continues to have a drop in her ferritin which is likely secondary to chronic GI blood loss. However, despite incrementation in her iron stores, she remained anemic with a Hgb ~10. I will perform a bone marrow biopsy to rule out a myelodysplastic syndrome. I will continue monthly IV venofer for now. She will return in 1 month to review bone marrow biopsy results. Orders: S NOMED-CT: [id number] Current Medications Documented (SCT-[id number]) F ERRITIN (457) C BC (INCLUDES DIFF/PLT) (6399) I EVER AND TOTAL IRON BINDING CAPACITY (7573) R ETICULOCYTE COUNT (793) Piyush Espinosa MD Hem/Onc:The patient' s symptoms are slightly improved with IV iron supplementation. I will recheck her iron stores, CBC and retic count. I will continue weekly IV iron infusion for an additional 4 weeks. Once her iron stores are adequate we can taper IV iron infusions to monthly then to every two months as she was on previously. She will return in 4 weeks. Orders: C BC (INCLUDES DIFF/PLT) (6399) F ERRITIN (457) I EVER AND TOTAL IRON BINDING CAPACITY (7573) R ETICULOCYTE COUNT, MANUAL (8699) Piyush Espinosa MD New:The patient has a hypoproliferative microcytic anemia. Her total iron stores and percent saturations are low despite taking oral supplemenation. The patient will be started on IV iron supplemenation initially weekly for 4 weeks. Side effects including but not limited to analphlaxysis, bloating, nausea were discussed with the patient. I will see her back in 1 month to reassess iron stores. The patient was agreeable to this plan. Orders: 9 9203 LTD. Complex ([id number]) Piyush Espinosa MD Date Name myocardial blood rubens w (PET) Stress Cardiac PET-C T Holter Monitor 24 Hr Complete Echo FOLATE, SERUM VITAMIN B12 HEMOGLOBIN A1c THYROID PANEL WITH T SH, 3RD GENERATION LIPID PANEL COMPREHENSIVE METABO LIC PANEL, W/EGFR CBC (INCLUDES DIFF/P LT) HEMOGLOBIN A1c TSH, 3RD GENERATION W/REFLEX TO FT4 LIPID PANEL COMPREHENSIVE METABO LIC PANEL W/EGFR CBC (INCLUDES DIFF/P LT) TSH reflex FT4 IRON AND TOTAL IRON BINDING CAPACITY FERRITIN COMPREHENSIVE METABO LIC PANEL W/EGFR CBC (INCLUDES DIFF/P LT) IRON AND TOTAL IRON BINDING CAPACITY FERRITIN CBC (INCLUDES DIFF/P LT) RETICULOCYTE COUNT, MANUAL IRON AND TOTAL IRON BINDING CAPACITY FERRITIN COMPREHENSIVE METABO LIC PANEL W/EGFR CBC (INCLUDES DIFF/P LT) IRON AND TOTAL IRON BINDING CAPACITY HEMOGLOBIN A1c TSH, 3RD GENERATION W/REFLEX TO FT4 LIPID PANEL COMPREHENSIVE METABO LIC PANEL W/EGFR CBC (INCLUDES DIFF/P LT) IRON AND TOTAL IRON BINDING CAPACITY HEMOGLOBIN A1c TSH, 3RD GENERATION T-4, FREE LIPID PANEL COMPREHENSIVE METABO LIC PANEL W/EGFR CBC (H/H, RBC, INDIC ES, WBC, PLT) FERRITIN IRON AND TOTAL IRON BINDING CAPACITY RETICULOCYTE COUNT, MANUAL COMPREHENSIVE METABO LIC PANEL W/EGFR CBC (INCLUDES DIFF/P LT) FERRITIN RETICULOCYTE COUNT CBC (INCLUDES DIFF/P LT) IRON AND TOTAL IRON BINDING CAPACITY RETICULOCYTE COUNT, MANUAL IRON AND TOTAL IRON BINDING CAPACITY CBC (INCLUDES DIFF/P LT) FERRITIN RETICULOCYTE COUNT IRON AND TOTAL IRON BINDING CAPACITY CBC (INCLUDES DIFF/P LT) FERRITIN RETICULOCYTE COUNT FERRITIN CBC (INCLUDES DIFF/P LT) RETICULOCYTE COUNT, MANUAL IRON AND TOTAL IRON BINDING CAPACITY FERRITIN CBC (INCLUDES DIFF/P LT) RETICULOCYTE COUNT, MANUAL IRON AND TOTAL IRON BINDING CAPACITY CBC (INCLUDES DIFF/P LT) FERRITIN HISTORY OF PROCEDURES Procedure Date Procedure Name Provider Procedure Notes S tatus EKG Michael Garcia MD completed Stress EKG NELY BOWDEN MD completed Regadenoson, 4 units NELY BOWDEN MD completed Cardiolite, 2 units NELY BOWDEN MD completed SPECT Images Jasbir Duggan MD complet ed SNOMED-CT: 779620198 559488 Current Medications Documented Piyush Espinosa MD completed SNOMED-CT: 002736065 858781 Current Medications Documented Piyush Espinosa MD completed SNOMED-CT: 095183558 443789 Current Medications Documented Piyush Espinosa MD completed SNOMED-CT: 568680181 602796 Current Medications Documented Piyush Espinosa MD completed SNOMED-CT: 518286532 467460 Current Medications Documented Piyush Espinosa MD completed SNOMED-CT: 011787508 472347 Current Medications Documented Piyush Espinosa MD completed ePrescribe - Check t his box if eRx is used NELY BOWDEN MD completed
--- OUTSIDE RECORDS SUMMARY | 2024-05-15 01:11 | XMS_ITS | Referral Summary ---
Author Organization [facility] Address [address] [place] [address] Care Team Providers Care Supervisor Scenic Arts Name Role Phone Cy Mckinnon DO Unavailable [phone] Herve Wilson MD Primary Care Provider [phone] Encounters Date Type Department Care Team Description 02/18/2024 Telephone [facility] [address] [place] [address] Jeronimo Negrete RPh 02/17/2024 Telephone [facility] Rhe[facility]ology at [facility] [address] [place] [address] Suzanne Zaman MD from Last [...] oral route 3 times every day 0 02/22/[address] (NexIUM) 40 mg [...] are complete. Avoid live-vaccines unless reviewed with texturing machine fixer first. Osteopenia 10/08/2023 Assessment & Plan (10/08/2023 11:08 AM CDT): On fosamax since 2020. Due for repeat DEXA. Will do at [facility]. You need 1200mg calcium daily between [...] (10/30/2021): Added automatically from request for surgery [id number] Mechanical complication of e lectrode lead of implanted electronic neurostimulator of peripheral nerve 10/30/2021 Overview (10/30/2021): Added automatically from request for surgery [id number] Stress incontinence 07/04/2020 Overview (07/04/2020): Added automatically from request for surgery [id number] Primary nocturnal enuresis 07/04/2020 Overview (07/04/2020): Added automatically from request for surgery [id number] Dysphagia 03/27/2020 Overview (03/27/2020): Added automatically from request for surgery [id number] Special screening for malignant neoplasms, colon 03/27/2020 Overview (03/27/2020): Added automatically from request for surgery [id number] Anemia 02/22/2019 Overview (03/06/2024): Problems with anemia [...] on file 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 Gender Identity Female 01/10/2021 2:50 PM CDT Sexual Orientation Not on file 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 file Not on file Not [...] on file Medical Devices Implanted Type Area Cardboard Cutter Device Identifier Shelf Expiration Date Model / Serial / Lot Medtronic Neuro 3058 Interstim Ii 2inx1.7in 4 Electrode Stonemason Helper Sacral Nerve - [id number] - [id number] Implanted:Qty: 1 on 07/23/2020 by Husam Morales MD at [facility] Neurostimulator Right: Buttocks Medtronic Inc 07/03/2021 [id number] / [id number] / Description:Sub Q upper righ t buttocks [employer] [id number] Interstim 28cm Quadripolar Mri Catering Sous Chef Neurostimulator - Sn/A - [id number] Implanted:Qty: 1 on 07/23/2020 by Husam Morales MD at [facility] Neurostimulator Right: Lumbar-Sac ral Spine Medtronic Inc 10/22/2021 [id number] / N/A / [id number] Description:Right Sacral-3 F oramin Medtronic Inc Generator Neurostimulator Bowel Bladder Recharge Free Interstim X [id number] - [id number] - [id number] Implanted:Qty: 1 on 12/02/2021 by Husam Morales MD at [facility] N/A: Buttocks Medtronic Inc 04/21/2023 [id number] / [id number] / Medtronic Inc Interstim 28cm Quadripolar Mri Catering Sous Chef Neurostimulator [id number] - [id number] Implanted:Qty: 1 on 12/02/2021 by Husam Morales MD at [facility] N/A: Sacrum Medtronic Inc 02/12/2023 [id number] / / [id number] Procedures Procedure Name Priority Date/Time Associated Diagnosis Comments COLONOSCOPY 04/12/2020 8:43 AM CATERING TRUCK DRIVER DEXA AXIAL SKELETON BONE DENSITY 1 OR MORE SITES Schedule Routine, Read Routine (OP Routine) 04/05/2020 10:47 AM CATERING TRUCK DRIVER Encounter for screening for osteoporosis SCREENING MAMMOGRAM BILATERAL W CRISTOBAL Schedule Routine, Read Routine (OP Routine) 04/24/2019 11:01 AM CATERING TRUCK DRIVER Encounter for screening mammogram for malignant neoplasm of breast from Last 3 Months or Most Recently Relevant to Health Maintenance Results * COLONOSCOPY (04/12/2020 8:43 AM CATERING TRUCK DRIVER) Anatomical Region Laterality Modality Other Narrative Procedure Note Jeniffer Almaraz MD - 04/12/2020 8:43 AM CST [facility] Patient Name: Alisha Arguello [...] 3 weeks. Procedure Code(s): --- Professional --- 03240, Colonoscopy, flexible; diagnostic, including collection of specimen(s) by brushing or washing,when performed (separate procedure) Diagnosis Code(s): --- Professional --- Z12.11, Encounter for screening for malignantneoplasm of colon K57.30, Diverticulosis of large intestine without perforation or abscess without bleeding CPT copyright 2019 [employer]. All rights reserved. The codes documented in this report are preliminary and upon vocational aide reviewmay be revised to meet current compliance requirements. Naida Almaraz Jeniffer Almaraz M.D. 04/12/2020 9:44:11 AM This report has been electronically signed by the physician. Number of Addenda: 0 Note Initiated On: 04/12/2020 8:43 AM Jeniffer Almaraz MD ENDOSCOPY PROCEDURES Final Result * Dexa Axial Skeleton Bone Density 1 or 2 Site (04/05/2020 10:47 AM CATERING TRUCK DRIVER) Anatomical Region Laterality Modality Body N/A Other 04/05/2020 10:5 8 AM CATERING TRUCK DRIVER Impressions 04/05/2020 10:59 AM CATERING TRUCK DRIVER According to the World Health Organization criteria, [...] signed by: Marika Huerta 04/05/2020 10:59 AM CATERING TRUCK DRIVER COMPLETION DATE: 04/05/2020 11:00 AM ORDERING HEALTHCARE PROVIDER: TERRELL LAY DESCRIPTION: DEXA AXIAL SKELETON BONE DENSITY 1 OR MORE SITES CLINICAL INDICATIONS: Z13.820. COMPARISON: None TECHNIQUE: Dual x-ray absorptiometry (DEXA) was performed using Talent Flush system. GENERAL GUIDELINES: According to WHO guidelines, [...] Dual x-ray absorptiometry (DEXA) was performed using Talent Flush system. GENERAL GUIDELINES: According to WHO guidelines, [...] Mammogram Bilateral W Cristobal (04/24/2019 11:01 AM CATERING TRUCK DRIVER) Anatomical Region Laterality Modality Breast Bilateral Mammography Narrative 04/25/2019 2:48 PM CATERING TRUCK DRIVER Mammogram Technique: Bilateral Digital Breast Tomosynthesis, Bilateral C-view 2D Screening mammogram. Views obtained: bilateral craniocaudal and bilateral mediolateral oblique. Computer Aided Detection was performed. Mammogram Findings: The present examination has been compared to prior imaging studies performed at [facility] on 11/21/2014, 11/27/2015 and [...] compared to prior imaging studies performed at [facility] on 11/21/2014, 11/27/2015 and 12/09/2016. There are scattered areas of fibroglandular density. There is no suspicious abnormality in either breast. Impression: Annual screening mammography is recommended. OVERALL FINAL ASSESSMENT: BI-RADS CATEGORY 1: Negative. us Self Screening Mammogram IMG MAMMO PROCEDURES Fi nal Result from Last 3 Months or Most Recently Relevant to Health Maintenance Insurance [facility] MEDICARE GOLD [facility] MEDICARE [facility] MEDICARE Address: [address] [place] [address] MEDICARE [facility] MEDICARE Address: [address] [address] [place] [address] Advance Directives For more information, please contact: [phone] * Full Code (Latest Code Status on File) Date Activated Date Inactivated Comments 04/12/2020 8:25 AM 04/12/2020 4:12 PM Care Teams Supervisor Scenic Arts Relationship Specialty Start Date End Date Herve Wilson MD [address] [place] [address] PCP - General Family Medicine 10/08/23 Cy Mckinnon DO [address] [place] [address] Medical Oncologist/Gear Coding Machine Operator Hematology and Oncology 10/05/17
--- OUTSIDE RECORDS SUMMARY | 2024-05-15 01:11 | XMS_ITS | Referral Summary ---
Author Organization [facility] Address [address] [place] [place] [address] Care Team Providers Care Senior Hardware Design Engineer Name Role Phone Unavailable Primary Care Provider Unavailabl e Source Comments [facility],non-owned Affiliates and Associated Physician Practices is amultiple site organization consisting of ambulatory clinics and hospital sitesin [place], [place], [place] and [place]. This disclosure is being madepursuant to the Care Everywhere program and may not contain all information available regarding this patient. Last updated 17.[facility] Allergies No known active allergies Medications * [...] Documents on File Type Date Recorded Patient Private Branch Exchange Operator Expl anation Adv Directive/Living Will/POA 06/20/2012 12:56 PM RECOVERY RX
--- OUTSIDE RECORDS SUMMARY | 2024-05-15 01:11 | XMS_ITS | Clinical Summary ---
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
--- OUTSIDE RECORDS SUMMARY | 2024-05-15 01:11 | XMS_ITS | Clinical Summary ---
Author Organization [facility] Address [address] [place] [address] Care Team Providers Care Trimming Caser Name Role Phone Unavailable Primary Care Provider [...]
--- OUTSIDE RECORDS SUMMARY | 2024-05-15 01:11 | XMS_ITS | Encounter Summary ---
Author Organization [facility] Address [address] [place] [address] Phone Care Team Providers Care Drive Worker Name Role Phone Sarmad Bowden Primary Care Provider [phone] Cy Mckinnon DO Unavailable [phone] Mirna Rider MD Primary Care Provider [phone] Anitra Rothman MD Primary Care Provider [phone] Justen Milton MD Primary Care Provider [phone] Herve Wilson MD Primary Care Provider [phone] Encounter Details Date Type Department Care Team (Late st Contact Info) Description 06/18/2017 Orders Only [facility] ProviderRusty MD [address] [place] [address] Social History Tobacco Use Types Packs/Day Years Used Date Smoking Tobacco: Former Smokeless Tobacco: Never Comments:Smoking History Pac ks/day: 1 Packs Alcohol Use Standard Drinks/Week Comments No 0 (1 standard drink = 0.6 oz pur e alcohol) Comments Unknown Sex and Gender Information Value Date Recorded Sex Assigned at Not on file 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 Gender Identity Female 01/10/2021 2:50 PM CDT [...] on filedocumented in this encounter Care Teams Drive Worker Relationship Specialty Start Date End Date Faviola Bowden MD [address] [address] PCP - General 06/05/16 12/15/17 Mirna Rider MD [facility] [place] [address] PCP - General 12/16/17 04/23/19 Anitra Rothman MD [address] [place] [address] [place] [address] PCP - General 04/24/19 03/24/20 Justen Milton MD [address] [place] [address] PCP - General 03/25/20 10/07/23 Herve Wilson MD [address] [place] [address] PCP - General Family Medicine 10/08/23 Cy Mckinnon DO [address] [place] [address] Medical Oncologist/Roll Carrier Hematology and Oncology 10/05/17 documented as of this encounter
--- OUTSIDE RECORDS SUMMARY | 2024-05-15 01:12 | XMS_ITS | Continuity of Care Document ---
Author Organization [facility] Address [address] [place] [address] Phone Care Team Providers Care Community Organization Director Name Role Phone Harris OD, Jeremias Unavailable [...] Diagnoses Date Provider Providers Copied on Encounter [facility], [address], [place], [place], [address], [place] tel:[phone] SEC [facility] No Information 0-201 0 Harris OD Jeremias. [address], [place], [address], [place]. tel:[phone] [facility], [address] [place] [address] [address], [place], [place], [id number], [place] tel:[phone] SEC [facility] No Information Mar-2 5-200 9 Harris OD Jeremias. [facility] , [address], [place], [place], [facility], [place]. tel:[phone] Office/outpat ient Visit, Est [facility], [address] [place] [address] [address], [place], [place], [address], [place] tel:[phone] SEC [facility] No Information Sep-1 0-200 8 Harris OD Jeremias. [address] [facility] , [address], [place], [place], [facility], [place]. tel:[phone] [facility], [address] [place] [address] [address], [place], [place], [address], [place] tel:[phone] SEC [facility] No Information Mar-1 9-200 8 Harris OD Jeremias. [facility] , [address], [place], [place], [facility], [place]. tel:[phone] Referring Provider: Rajan Holman, [address] [place], [place] [address]ate [address], [place], [place], [facility]. tel:[phone] [facility], [address] [place] [address] [address], [place], [place], [address], [place] tel:[phone] SEC [facility] No Information Mar-0 5-200 8 Candelaria Tolentino. [facility] , [address], [place], [address], [place]. tel:[phone] [facility], [address] [place] [address] [address], [place], [place], [address], [place] tel:[phone] [facility] No Information Mar-0 4-200 8 Candelaria Tolentino. [address] [place], [place] [address]ate Center , [address], [place], [facility], [place]. tel:[phone] [facility], [address], [place], [place], [address], [place] tel:[phone] [facility] [place] No Information 8 Candelaria Tolentino. [address] [place], [place] [address]ate Center , [address], [place], [place], [facility], [place]. tel:[phone] Referring Provider: Rajan Holman, [facility] [address], [place], [facility]. tel:[phone] [facility], [address], [place], [place], [address], [place] tel:[phone] SEC [facility] [place] No Information 6200 7 Candelaria Tolentino. [address] [place], [place] [address]ate Center , [address], [place], [place], [facility], [place]. tel:[phone] Referring Provider: Jeremias Holman, [facility] [address], [place], [facility]. tel:[phone] [facility], [address], [place], [place], [id number], [place] tel:[phone] SEC [facility] No Information 8-200 7 Harris OD Jeremias. [address] [place], [place] [address]ate Rei Alexis, [address], [place], [place], [facility], [place]. tel:[phone] Referring Provider: Rajan Holman, [facility] [address], [place], [facility]. tel:[phone] [facility], [address], [place], [place], [address], [place] tel:[phone] [facility] No Information 7200 7 Candelaria Tolentino. [facility] Alexis, [address], [place], [facility], [place]. tel:[phone] Referring Provider: Jeremias Harris OD River, [address] [place] [address] [address], [place], [address]. tel:[phone] [facility], [address] [place] [address] [address], [place], [place], [address], tel:[phone] SEC [facility] No Information 0 [phone] 7 Doisy Edward. [address] [place] [address] , [address], [place], [address], . tel:[phone] Referring Provider: Jeremias Holman, [address] [place] [address] [address], [place], [address]. tel:[phone] [facility], [address] [place] [address] [address], [place], [place], [id number], tel:[phone] SEC [facility] No Information 3-200 7 Harris OD Jeremias. [address] [place] [address] , [address], [place], [address], [place]. tel:[phone] Family History Family Member Type Diagnosis Age At Onset No Information Payers Payer name Insurance type Covered green party ID Authoriza tirocio(s) [place] [id number] Social History Type Description Quantity Date Captured [...]
--- NOTE | 2024-05-15 04:39 | WPDHPUPDATE1 ---
History and Physical Update Update Date/Time: 05/15/24 04:39 History and Physical has been reviewed, including an updated exam of the patient. There are NO changes in the patient's condition. Risks, benefits, and alternatives have been discussed and questions answered. Patient agrees to proceed with procedure.
[2024-05-15] MEDS: LACTATED RINGERS 1,000 ML 30 ML IV CONT (13:30)
--- NOTE | 2024-05-15 14:07 | WPDANESEPPF ---
Anes - Initial Pre Proc Eval Procedure: Operation Date: 05/15/24 15:00 Proposed Procedures p Removal and Replacement Interstim Implant - Husam Morales MD Date/Time: 05/15/24 14:07 Surgeon: Husam Morales MD Pre Op Diagnosis: sensory urge incont Patient Data Age: 68 Gender: F Height: 1.6 m Weight: 116 kg Last Vital Signs Temp 36.9 C 05/15/24 13:55 Pulse 54 L 05/15/24 13:55 Resp 18 05/15/24 13:55 BP 168/64 H 05/15/24 13:55 Pulse Ox 98 05/15/24 13:55 O2 Del Method Room Air 05/15/24 13:55 Allergies Allergy/AdvReac Type Severity Reaction Status Date / Time montelukast Allergy Other Verified 05/15/24 13:53 Home Medications ?Medication ?Instructions ?Recorded ?Confirmed ?Type albuterol sulfate 90 mcg/actuation 2 inh inhalation QID PRN Shortness 08/25/21 05/04/24 History aerosol inhaler Of Breath Or Wheezing alendronate 70 mg tablet 1 tablet PO WEEKLY 08/25/21 05/04/24 History amlodipine 5 mg tablet 5 mg PO DAILY 08/25/21 05/15/24 History atorvastatin 20 mg tablet 20 mg PO DAILY 08/25/21 05/04/24 History bupropion HCl 200 mg tablet,12 hr 200 mg PO BID 08/25/21 05/15/24 History sustained-release citalopram 20 mg tablet 20 mg PO DAILY 08/25/21 05/15/24 History duloxetine 60 mg capsule,delayed 60 mg PO DAILY 08/25/21 05/15/24 History release etanercept 50 mg/mL (1 mL) 1 ea subcut WEEKLY 08/25/21 05/04/24 History subcutaneous pen injector (Enbrel SureClick) leflunomide 20 mg tablet 20 mg PO DAILY 08/25/21 05/04/24 History metoprolol tartrate 25 mg tablet 25 mg PO DAILY 08/25/21 05/15/24 History omeprazole 40 mg capsule,delayed 40 mg PO DAILY 08/25/21 05/04/24 History release risperidone 1 mg tablet 1 mg PO HS 08/25/21 05/04/24 History ropinirole 1 mg tablet 1 mg PO HS 08/25/21 05/04/24 History topiramate 100 mg tablet 100 mg PO TID 08/25/21 05/04/24 History dextromethorphan-guaifenesin 30 1 tab PO Q12HR #30 tabs 08/27/21 05/04/24 Rx mg-600 mg tablet extended pdadhzo20 hr (Mucinex DM) aspirin 81 mg tablet,delayed 81 mg PO DAILY 04/21/24 05/04/24 History release (Adult Aspirin Regimen) levothyroxine 150 mcg tablet 150 mcg PO QAM 04/21/24 05/15/24 History prednisone 5 mg tablet 5 mg PO DAILY 04/21/24 05/15/24 History hydrocodone 5 mg-acetaminophen 325 1 tablet PO Q6H PRN pain #20 tabs 05/01/24 05/04/24 Rx mg tablet Patient hx anesthesia problems: none Family hx anesthesia problems: none Results Review: All pre-operative results and documents have been reviewed as part of the pre-operative evaluation. [facility] Past Medical History Medical History Rheumatoid arthritis Carpal tunnel syndrome Anxiety and depression Bipolar 1 disorder Hyperlipemia Hypertension Hypothyroidism COPD (chronic obstructive pulmonary disease) Surgical History Surgical History History of total left knee replacement History of tonsillectomy H/O: hysterectomy H/O thyroidectomy Family History Family History Mother Hypertension COPD (chronic obstructive pulmonary disease) Lung cancer Father Hypertension COPD (chronic obstructive pulmonary disease) Lung cancer Grandparent Cerebrovascular accident maternal grandmother Son Diabetes mellitus Social History Social History Social History: Patient lives by herself and has 3 rescue dogs at home. She has 1 son his name is Adam who will be her surrogate if she can not make her own decisions. Patient stated that she is a half a pack smoker a day and quit 4 days ago and has been smoking for 14 years. Patient wishes to be a full code at this time. 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 Gender identity (if verbalized by the patient): Female Sexual Orientation (if Verbalized by the Patient): Straight or Heterosexual Spiritual care concerns: No Agree to blood products: Yes Anes - Eval Final PreProcedure Day of Procedure 05/15/24 14:07 Patient weight: morbidly obese Heart: regular rate and rhythm Lungs: decreased breath sounds Airway: Mallampati scale class II Neurological: alert and oriented Last oral intake: >/= 8 hours ASA classification: IV Emergent: no Anesthetic plan: proceed Anesthesia type and monitoring: general GIVS and standard monitoring Results Review: All pre-operative results and documents have been reviewed as part of the pre-operative evaluation. Informed Consent: The patient's anesthetic plan and its attendant risks and benefits were discussed with the patient/family/POA. Questions were solicited and answers provided to the satisfaction of the patient/family/POA.
[2024-05-15] MEDS: ceFAZolin 3 GM/D5W 100 ML 100 ML IVPB (14:33)
[2024-05-15] MEDS: BUPIVACAINE/EPINEPHRINE 0.5% 50 ML VIAL 20 ML INFILTRATE (14:55)
--- NOTE | 2024-05-15 15:31 | W.PM.PROC2 ---
Procedure Note - Detailed Date of Procedure 05/15/24 Pre-op Diagnosis sensory urge incont Fecal incontinence Post-op Diagnosis Same Procedure Performed Removal of right-sided sacral lead 76793 Implantation of left-sided sacral lead 88770 Revision of implantable pulse generator 74115 Complex neurostimulator programming impedance check 73159 Surgeon Husam Morales MD Anesthesia MAC and Local Indications She has refractory urge incontinence as well as fecal incontinence. Two weeks ago she underwent removal and replacement of InterStim device as the device was at end of life. It was an uncomplicated surgery however the device became dislodged in the postoperative period. She is here today to have her lead replaced and connected to her already existing battery Findings See dictated Description of Procedure They were correctly identified and informed consent was obtained. There brought to the operating room. There placed in the prone position. There given appropriate perioperative antibiotics. A time-out performed. I anesthetized the skin over the pulse generator. I opened the skin. I located the pulse generator. I explanted the previously placed right-sided sacral lead. This was removed intact I used fluoroscopy to juan out my sacral landmarks in the AP and the lateral orientation. I anesthetized the skin. I entered the S3 foramen on the patient's left. I monitored the needle with fluoroscopy. I got appropriate Sharath and toe response at a low threshold. I made a skin saúl. I placed a stylet. I placed the lead introducer sheath. I then placed the thinned lead p and deployed to my lead under fluoroscopy. I got appropriate responses again at a low threshold. I extended the pulse generator site. I assured that the new lead was secure in the subcutaneous tissues. I tunneled the lead towards this pocket. Appropriate connections were made between the lead and the battery. It was placed in the pocket. It was programmed and impedances were checked and found to be normal. I irrigated out all wounds. I ensured hemostasis. I closed the subcutaneous tissues with 2 Vicryl. I closed the skin with 4 0 Vicryl. Glue was applied. There then awakened and transferred to the PACU in stable condition. Implants Sacral neurostimulator Estimated Blood Loss 5 Drains No Packing No Pathology None sent Condition Stable Disposition PACU
[2024-05-15] MEDS: oxyCODONE HCL (*CRX) 5 MG TAB IR PO (15:58)
[2024-05-15] MEDS: hydrALAZINE HCL 20 MG/ML VIAL 5 MG IV PUSH (15:59)
== END 2024-05-15 16:51 | disposition home or self-care (01) ==
PROVIDERS: PCP Family Medicine; Visit Provider Urology
PROC: (CPT 64585; principal; 2024-05-15 15:00)
DX: T85.199A Other mechanical complication of other implanted electronic stimulator of nervous system, initial encounter (principal); N39.41 Urge incontinence; R15.9 Full incontinence of feces; Y83.8 Other surgical procedures as the cause of abnormal reaction of the patient, or of later complication, without mention of misadventure at the time of the procedure; F17.210 Nicotine dependence, cigarettes, uncomplicated; F10.21 Alcohol dependence, in remission; E66.01 Morbid (severe) obesity due to excess calories; Z68.42 Body mass index [BMI] 45.0-49.9, adult
CPT/HCPCS: 64585; 64595; 99199; A9270; C1778; J0360; J0690; J2004; J2250; J2704; J3010; J7120

== ENCOUNTER 2024-06-21 15:23 | Inpatient (IN) | payer MEDICARE, SELFPAY ==
[2024-06-21] VITALS (9 sets, daily range): BP systolic 117–192; BP diastolic 77–86; PULSE 59–100; RESP 18–21; TEMP 36.6–38.3; O2SAT 93–100; BMI 43.3; BMI 43.2
--- NOTE | ~2024-06-21 | XR_ITS ---
Portable chest x-ray Comparison: 06/21/2024 Clinical History: Pulmonary edema Findings: Probable small left pleural effusion present with left basilar airspace disease. Right jv g clear. Cardiomediastinal silhouette is stable. Cervical spine fixation hardware noted. Impression: Small left pleural effusion with left basilar pulmonary edema/atelectasis versus pneumonia. Correlate clinically. Reviewed, dictated and finalized at [facility]. Impression: Small left pleural effusion with left basilar pulmonary edema/atelectasis versu s pneumonia. Correlate clinically.
--- NOTE | ~2024-06-21 | CT_ITS ---
CT brain wo con Ordering provider: Vivien Smith PA-C History: 68 years Female with . confusion . Comparison: None. Technique: CT of the head without contrast. Radiation reduction technique utilized. The dose-length p roduct was 605.33 mGy-cm. FINDINGS: BRAIN PARENCHYMA AND CSF SPACES: Mild leukoaraiosis and diffuse cortical atrophy. Mild atheromatous d isease. No midline shift, mass effect or hemorrhage. The brain parenchyma and CSF spaces are otherwi se normal. VISUALIZED PARANASAL SINUSES: Well aerated. MASTOIDS: Well aerated. BONES: The bones appear intact. SOFT TISSUES: Visualized nasopharynx is normal. Superficial soft tissues are normal. IMPRESSION: No acute intracranial findings. Reviewed, dictated and finalized at location A.
--- NOTE | ~2024-06-21 | XR_ITS ---
XR chest 1V portable 06/21/2024 16:06 Indication: Altered mental status Procedure: AP portable chest Comparison: 08/25/2021 Findings: Cardiomegaly. Mild interstitial edema. No significant effusion or pneumothorax. There is hi atal hernia. No acute osseous abnormality. Impression: 1: Cardiomegaly with mild interstitial edema. Reviewed, dictated and finalized at location B. Impression: 1: Cardiomegaly with mild interstitial edema.
--- NOTE | 2024-06-21 15:35 | ECG_ITS ---
Test Date: 2024-06-21 15:44:58 Measurements Intervals Holden Rate: 74 P: -61 MN: 169 QRS: -61 QRSD: 114 T: 5 QT: 399 QTc: 445 Interpretive Statements ECTOPIC ATRIAL RHYTHM LEFT ANTERIOR FASCICULAR BLOCK BORDERLINE ST-T WAVE ABNORMALITY- INF/HIGH LAT LEADS BASELINE ARTIFACT- I, II, III, AVR, AVL, AVF, V1-V2, V4 ABNORMAL ECG No previous ECG available for comparison Electronically Signed On 06-21-2024 16:12:25 CDT by Irving Carcamo D.O.
[2024-06-21 16:05] LABS: Basophils Percent Auto 0.2 % (0.2-1.2); Eosinophils Percent Auto 0.3 % (0-4.4); Hemoglobin 10.5 g/dL (12.0-15.0); Immature Granulocyte Absolute 0.08 K/mm3 (0.00-0.031); Immature Granulocyte Percent A 0.8 % (0-0.5); Lymphocytes Absolute Auto 0.71 K/mm3 (0.9-3.2); Lymphocytes Percent Auto 6.8 % (18.3-44.2); Mean Corpuscular Hemoglobin 27.1 pg (26-34); Mean Corpuscular Volume 90.2 fl (80-100); Mean Platelet Volume 10.8 fl (7.4-10.4); Monocytes Absolute Auto 1.1 K/mm3 (0.1-0.6); Monocytes Percent Auto 10.5 % (2.6-8.5); Neutrophils Absolute Auto 8.5 K/mm3 (1.3-6.7); Neutrophils Percent Auto 81.4 % (45.5-73.1); Platelet Count Result 171 k/mm3 (150-375); Red Blood Count 3.88 M/mm3 (4.2-5.4); Red Cell Distribution Width 15.9 % (11.5-14.5); White Blood Count 10.4 K/mm3 (4.5-10.0)
[2024-06-21 16:16] LABS: Add Urine Microscopic? YES; Appearance Urine Cloudy (Clear); Bacteria Urine 4+ /hpf; Bilirubin Urine Negative (Negative); Blood Urine 1+ (Negative); Color Urine Dark Yellow (Yellow); Glucose Urine UA Negative (Negative); Ketones Urine Negative (Negative); Leukocyte Esterase Ur 3+ LEU/UL (Negative); Need Manual Microscopic Reviewed; Nitrate Urine Positive (Negative); Protein Urine 2+ mg/dL (Negative); Specific Grav Ur 1.018 (1.001-1.035); Squamous Epithelial Cell Urine None Seen /hpf (Few); WBC Urine 51-100 /hpf (0-3)
[2024-06-21 16:17] LABS: Lactic Acid Reflex 1.3 mmol/L (0.7-2.0)
[2024-06-21 16:18] LABS: Alanine Aminotransferase 15 U/L (6-35); Albumin Level 3.7 g/dL (3.5-5.1); Alkaline Phosphatase 109 U/L (38-126); Anion Gap 11 mmol/L (4-12); Aspartate Amino Transferase 17 U/L (14-36); Bilirubin,Total 0.8 mg/dL (0.2-1.3); Blood Urea Nitrogen 19 mg/dL (7-17); Calcium 8.6 mg/dL (8.4-10.2); Carbon Dioxide 22 mmol/L (22-30); Chloride 105 mmol/L (98-107); Estimated CRCL calculation 74 ml/min; Estimated Glomerular Filt Rate > 60; Glucose 106 mg/dL (65-110); Potassium 3.6 mmol/L (3.4-5.0); Sodium 138 mmol/L (137-145)
[2024-06-21 16:22] LABS: INR 1.1; Prothrombin Time 14.8 Seconds (11.1-14.7)
[2024-06-21 16:23] LABS: Partial Thromboplastin Time 31.9 Seconds (22.3-36.8)
[2024-06-21] MEDS: cefTRIAXone 2 GM/NS 100 ML 2 GM/100 ML BAG IVPB (16:34)
[2024-06-21 16:41] LABS: Influenza A QL RT-PCR Negative (Negative); Influenza B QL RT-PCR Negative (Negative); RSV RNA, RT-PCR Negative (Negative); SARS-CoV-2 RNA PCR Negative (Negative)
--- NOTE | 2024-06-21 16:41 | ED_ITS ---
HPI - Female Genitourinary General Chief complaint: Urogenital-Female Stated complaint: weakness, urinary symptoms Time Seen by Provider: 06/21/24 16:02 History of Present Illness HPI Narrative: Patient is here because she is having generalized weakness. She has chronic urinary incontinence s/p sacral leads by urology. She is so weak that she cannot get up and that is when she came into the hospital. Does report fevers. Denies any pain anywhere. Related Data Home Medications ?Medication ?Instructions ?Recorded ?Confirmed ?Last Taken ?Type albuterol sulfate 90 mcg/actuation 2 inh inhalation QID PRN Shortness 08/25/21 05/04/24 Unknown History aerosol inhaler Of Breath Or Wheezing alendronate 70 mg tablet 1 tablet PO WEEKLY 08/25/21 05/04/24 04/29/24 History amlodipine 5 mg tablet 5 mg PO DAILY 08/25/21 05/15/24 05/15/24 History atorvastatin 20 mg tablet 20 mg PO DAILY 08/25/21 05/04/24 04/30/24 History bupropion HCl 200 mg tablet,12 hr 200 mg PO BID 08/25/21 05/15/24 05/15/24 History sustained-release citalopram 20 mg tablet 20 mg PO DAILY 08/25/21 05/15/24 05/15/24 History duloxetine 60 mg capsule,delayed 60 mg PO DAILY 08/25/21 05/15/24 05/15/24 History release etanercept 50 mg/mL (1 mL) 1 ea subcut WEEKLY 08/25/21 05/04/24 04/29/24 History subcutaneous pen injector (Bulmaro Crandall) leflunomide 20 mg tablet 20 mg PO DAILY 08/25/21 05/04/24 04/30/24 History metoprolol tartrate 25 mg tablet 25 mg PO DAILY 08/25/21 05/15/24 05/15/24 History omeprazole 40 mg capsule,delayed 40 mg PO DAILY 08/25/21 05/04/24 04/30/24 History release risperidone 1 mg tablet 1 mg PO HS 08/25/21 05/04/24 04/30/24 History ropinirole 1 mg tablet 1 mg PO HS 08/25/21 05/04/24 Unknown History topiramate 100 mg tablet 100 mg PO TID 06/05/04/24 04/30/24 History aspirin 81 mg tablet,delayed 81 mg PO DAILY 04/21/24 05/04/24 04/25/24 History release (Adult Aspirin Regimen) levothyroxine 150 mcg tablet 150 mcg PO QAM 04/21/24 05/15/24 05/15/24 History prednisone 5 mg tablet 5 mg PO DAILY 04/21/24 05/15/24 05/15/24 History Allergies Allergy/AdvReac Type Severity Reaction Status Date / Time montelukast Allergy Other Verified 05/15/24 13:53 Review of Systems 2 Review of Systems: All systems reviewed & are unremarkable except as noted in HPI and below PMFSH Past Medical History Medical History Rheumatoid arthritis Carpal tunnel syndrome Anxiety and depression Bipolar 1 disorder Hyperlipemia Hypertension Hypothyroidism COPD (chronic obstructive pulmonary disease) Surgical History Surgical History History of total left knee replacement History of tonsillectomy H/O: hysterectomy H/O thyroidectomy Family History Family History Mother Hypertension COPD (chronic obstructive pulmonary disease) Lung cancer Father Hypertension COPD (chronic obstructive pulmonary disease) Lung cancer Grandparent Cerebrovascular accident maternal grandmother Son Diabetes mellitus Social History Social History Social History: Patient lives by herself and has 3 rescue dogs at home. She has 1 son his name is Adam who will be her surrogate if she can not make her own decisions. Patient stated that she is a half a pack smoker a day and quit 4 days ago and has been smoking for 14 years. Patient wishes to be a full code at this time. 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 EYES: EOMI, conjunctiva normal ENT: Hearing grossly intact LUNGS: Nonlabored breathing. Clear to auscultation bilaterally HEART: [Regular rate and rhythm] ABD: [Soft], [nontender to palpation] EXT: Normal range of motion SKIN: [No rashes or lesions.] NEURO: [Alert and oriented x 2. No gross focal sensory or strength deficits.] PSYCH: Normal affect Course Vital Signs Vital signs: Vital Signs Temperature 97.9 F 06/21/24 15:37 Pulse Rate 78 06/21/24 15:37 Respiratory Rate 18 06/21/24 15:37 Blood Pressure 172/86 H 06/21/24 15:37 Pulse Oximetry 96 06/21/24 15:37 Temperature 97.9 F 06/21/24 15:37 Pulse Rate 78 06/21/24 15:37 Respiratory Rate 18 06/21/24 15:37 Blood Pressure 172/86 H 06/21/24 15:37 Pulse Oximetry 96 06/21/24 15:37 MDM - Female Genitourinary MDM Narrative Medical decision making narrative: 68 year-old patient presenting with AMS, generalized weakness from home; sepsis workup initiated. CXR on my independent interpretation without any obvious consolidation; EKG on my independent interpretation showing a rate 74, NM 169, QRS 114, QTC 445, no obvious ST elevations or depressions, does appear to be ectopic rhythm. Labs show WBC 10.4; UA c/w with UTI. Urinalysis is obtained and positive for signs of infection. Urine culture sent. Patient started on ceftriaxone. Since she is confused more baseline and normally lives alone at home, I do feel she needs to be admitted for treatment. Discussed with hospitalist for admission Lab Data 06/21/24 15:56 06/21/24 15:57 Labs: Lab Results 06/21/24 06/21/24 06/21/24 Range/Units 15:55 15:56 15:57 WBC 10.4 H (4.5-10.0) K/mm3 RBC 3.88 L (4.2-5.4) M/mm3 Hgb 10.5 L (12.0-15.0) g/dL Hct 35.0 L (37.0-47.0) % MCV 90.2 (80-100) fl MCH 27.1 (26-34) pg MCHC 30.0 L (32-36) g/dl RDW 15.9 H (11.5-14.5) % Plt Count 171 (150-375) k/mm3 MPV 10.8 H (7.4-10.4) fl Immature Gran % (Auto) 0.8 H (0-0.5) % Neut % (Auto) 81.4 H (45.5-73.1) % Lymph % (Auto) 6.8 L (18.3-44.2) % [place] % (Auto) 10.5 H (2.6-8.5) % Eos % (Auto) 0.3 (0-4.4) % Baso % (Auto) 0.2 (0.2-1.2) % Lymph # (Auto) 0.71 L (0.9-3.2) K/mm3 [place] # (Auto) 1.1 H (0.1-0.6) K/mm3 Eos # (Auto) 0.0 (0-0.3) K/mm3 Baso # (Auto) 0.0 (0.0-0.1) K/mm3 Abs Immat Gran (auto) 0.08 H (0.00-0.031) K/mm3 Absolute Neuts (auto) 8.5 H (1.3-6.7) K/mm3 Absolute Nucleated RBC 0.000 (0.0-0.012) K/mm3 Nucleated RBC % 0.0 (0.0-0.2) % PT 14.8 H (11.1-14.7) Seconds INR 1.1 APTT 31.9 (22.3-36.8) Seconds Sodium 138 (137-145) mmol/L Potassium 3.6 (3.4-5.0) mmol/L Chloride 105 (98-107) mmol/L Carbon Dioxide 22 (22-30) mmol/L Anion Gap 11 (4-12) mmol/L BUN 19 H (7-17) mg/dL Creatinine 0.89 (0.7-1.0) mg/dL Estim Creat Clear Calc 74 ml/min Estimated GFR > 60 (59 - ) Glucose 106 (65-110) mg/dL Lactic Acid 1.3 (0.7-2.0) mmol/L Calcium 8.6 (8.4-10.2) mg/dL Total Bilirubin 0.8 (0.2-1.3) mg/dL AST 17 (14-36) U/L ALT 15 (6-35) U/L Alkaline Phosphatase 109 (38-126) U/L Total Creatine Kinase Pending C-Reactive Protein Total Protein (6.3-8.2) g/dL Albumin (3.5-5.1) g/dL Urine Color (Yellow) Urine Appearance (Clear) Urine pH (5.0-9.0) Ur Specific [place] (1.001-1.035) Urine Protein (Negative) mg/dL Urine Glucose (UA) (Negative) mg/dL Urine Ketones (Negative) mg/dL Ur Blood (Man) (Negative) Urine Nitrate (Negative) Urine Bilirubin (Negative) Urine Urobilinogen (<2.0) mg/dL Add Ur Microanalysis Leukocyte Esterase Rfl (Negative) PANTERA/UL Urine RBC (0-2) /hpf Urine WBC (0-3) /hpf Ur Squamous Epith Cells (Few) /hpf Urine Bacteria /hpf Urine Casts Influenza A (RT-PCR) Pending Influenza B (RT-PCR) Pending RSV (RT-PCR) Pending SARS-CoV-2 RNA (RT-PCR) Pending 06/21/24 Range/Units 15:57 WBC (4.5-10.0) K/mm3 RBC (4.2-5.4) M/mm3 Hgb (12.0-15.0) g/dL Hct (37.0-47.0) % MCV (80-100) fl MCH (26-34) pg MCHC (32-36) g/dl RDW (11.5-14.5) % Plt Count (150-375) k/mm3 MPV (7.4-10.4) fl Immature Gran % (Auto) (0-0.5) % Neut % (Auto) (45.5-73.1) % Lymph % (Auto) (18.3-44.2) % [place] % (Auto) (2.6-8.5) % Eos % (Auto) (0-4.4) % Baso % (Auto) (0.2-1.2) % Lymph # (Auto) (0.9-3.2) K/mm3 [place] # (Auto) (0.1-0.6) K/mm3 Eos # (Auto) (0-0.3) K/mm3 Baso # (Auto) (0.0-0.1) K/mm3 Abs Immat Gran (auto) (0.00-0.031) K/mm3 Absolute Neuts (auto) (1.3-6.7) K/mm3 Absolute Nucleated RBC (0.0-0.012) K/mm3 Nucleated RBC % (0.0-0.2) % PT (11.1-14.7) Seconds INR APTT (22.3-36.8) Seconds Sodium (137-145) mmol/L Potassium (3.4-5.0) mmol/L Chloride (98-107) mmol/L Carbon Dioxide (22-30) mmol/L Anion Gap (4-12) mmol/L BUN (7-17) mg/dL Creatinine (0.7-1.0) mg/dL Estim Creat Clear Calc ml/min Estimated GFR (59 - ) Glucose (65-110) mg/dL Lactic Acid (0.7-2.0) mmol/L Calcium (8.4-10.2) mg/dL Total Bilirubin (0.2-1.3) mg/dL AST (14-36) U/L ALT (6-35) U/L Alkaline Phosphatase (38-126) U/L Total Creatine Kinase Cancelled C-Reactive Protein Pending Total Protein 7.0 (6.3-8.2) g/dL Albumin 3.7 (3.5-5.1) g/dL Urine Color Dark yellow (Yellow) Urine Appearance Cloudy H (Clear) Urine pH 7.0 (5.0-9.0) Ur Specific [place] 1.018 (1.001-1.035) Urine Protein 2+ H (Negative) mg/dL Urine Glucose (UA) Negative (Negative) mg/dL Urine Ketones Negative (Negative) mg/dL Ur Blood (Man) 1+ H (Negative) Urine Nitrate Positive H (Negative) Urine Bilirubin Negative (Negative) Urine Urobilinogen 2.0 H (<2.0) mg/dL Add Ur Microanalysis Reviewed Leukocyte Esterase Rfl 3+ H (Negative) PANTERA/UL Urine RBC 11-20 H (0-2) /hpf Urine WBC 51-100 H (0-3) /hpf Ur Squamous Epith Cells None seen (Few) /hpf Urine Bacteria 4+ H /hpf Urine Casts 6-10 Influenza A (RT-PCR) Influenza B (RT-PCR) RSV (RT-PCR) SARS-CoV-2 RNA (RT-PCR) Discharge Plan Discharge Clinical Impression: Urinary tract infection, AMS (altered mental status) Patient Disposition: Still a Patient Condition: Stable Patient Language: Greenlandic Prescriptions: No Action hydrocodone-acetaminophen 5-325 mg tablet 1 tablet PO Q6H PRN (Reason: pain) Qty: 20 0RF atorvastatin 20 mg tablet 20 mg PO DAILY ropinirole 1 mg tablet 1 mg PO HS alendronate 70 mg tablet 1 tablet PO WEEKLY Patient Comments: SATURDAYS amlodipine 5 mg tablet 5 mg PO DAILY Patient Comments: QAM omeprazole 40 mg capsule,delayed release(DR/EC) 40 mg PO DAILY leflunomide 20 mg tablet 20 mg PO DAILY citalopram 20 mg tablet 20 mg PO DAILY Patient Comments: QAM albuterol sulfate 90 mcg/actuation HFA aerosol inhaler 2 inh INHALATION QID PRN (Reason: Shortness Of Breath Or Wheezing) risperidone 1 mg tablet 1 mg PO HS bupropion HCl 200 mg tablet sustained-release 12 hr 200 mg PO BID metoprolol tartrate 25 mg tablet 25 mg PO DAILY Patient Comments: QAM duloxetine 60 mg capsule,delayed release(DR/EC) 60 mg PO DAILY Patient Comments: QAM Enbrel SureClick 50 mg/mL (1 mL) pen injector 1 ea SUBCUT WEEKLY Patient Comments: SATURDAYS topiramate 100 mg tablet 100 mg PO TID Mucinex DM 30-600 mg Tablet Extended Release 12 Hr 1 tab PO Q12HR Qty: 30 0RF levothyroxine 150 mcg tablet 150 mcg PO QAM prednisone 5 mg tablet 5 mg PO DAILY aspirin [Adult Aspirin Regimen] 81 mg tablet,delayed release (DR/EC) 81 mg PO DAILY Patient Comments: STATES LAST DOSE 04/21/24 hydrocodone-acetaminophen 5-325 mg tablet 1 tablet PO Q6H PRN (Reason: pain) Qty: 20 0RF Follow-up/Referrals: Katie,Herve Hernandez MD [Primary Care Provider] -
--- OUTSIDE RECORDS SUMMARY | 2024-06-21 16:53 | XMS_ITS | Encounter Summary ---
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
--- OUTSIDE RECORDS SUMMARY | 2024-06-21 16:53 | XMS_ITS | Clinical Summary ---
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
--- OUTSIDE RECORDS SUMMARY | 2024-06-21 16:53 | XMS_ITS | CONTINUITY OF CARE DOCUMENT ---
Author Name makayla, makayla Address Unknown Organization [facility] Address [address] [place] [address] Phone [phone] Care Team Providers Care Wellness Manager Name Role Phone Radha SINGH, Michael Unavailable Michael Garcia MD Unavailable SANTOS SORIA MD Unavailable [phone] PROBLEMS Condition Status Date Provider Notes Elevated glucose active NELY BOWDEN MD Hyperlipidemia active NELY BOWDEN MD Anemia, iron deficiency active Piyush mendez MD Cardiology examination active Michael Garcia MD Chest pain active Michael Garcia MD Atrial fibrillation, paroxysmal, chronic active 06/09 Michael Garcia MD Hypertension active Renae Hernandez NP Aortic insufficiency active Renae Hernandez NP CHF active Michael Garcia MD CAD active Michael Garcia MD Arthritis, rheumatoid, chronic active Dhruv Espinosa MD Anemia, unspecified active NELY BOWDEN MD Unilateral thyroid lobectomy active GLORIA MORGAN MD Urinary incontinence active NELY BOWDEN MD Asthma, unspecified active NELY BOWDEN MD Other and unspecified hyperlipidemia active NELY BOWDEN MD Unspecified hypothyroidism active GABRIELA SAMPSON MD Depression active NELY BOWDEN MD ENCOUNTERS Date Type Provider Location Encounter Diag nosis - In-person encounter Office Visit Michael Garcia MD [facility] Atrial fibrillation, paroxysmal, chronicChest pain - In-person encounter Office Visit Michael Garcia MD [facility] Aortic insufficiencyHypertension - In-person encounter Office Visit Michael Garcia MD [facility] Cardiology examinationCADCHF - In-person encounter Office Visit ENLY BOWDEN MD [facility] - In-person encounter Office Visit NELY BOWDEN MD [facility] - In-person encounter Office Visit NELY BOWDEN MD [facility] - In-person encounter Office Visit NELY BOWDEN MD [facility] - In-person encounter Office Visit NELY BOWDEN MD [facility] - In-person encounter Office Visit NELY BOWDEN MD [facility] - In-person encounter Office Visit NELY BOWDEN MD [facility] - In-person encounter Office Visit NELY BOWDEN MD [facility] - In-person encounter Office Visit NELY BOWDEN MD [facility] - In-person encounter Office Visit NELY BOWDEN MD [facility] - In-person encounter Office Visit NELY BOWDEN MD [facility] - In-person encounter Office Visit NELY BOWDEN MD [facility] - In-person encounter Office Visit NELY BOWDEN MD [facility] - In-person encounter Office Visit NELY BOWDEN MD [facility] - In-person encounter Office Visit NELY BOWDEN MD [facility] - In-person encounter Office Visit NELY BOWDEN MD [facility] - In-person encounter Office Visit NELY BOWDEN MD [facility] - In-person encounter Office Visit NELY BODWEN MD [facility] - In-person encounter Office Visit NELY BOWDEN MD [facility] - In-person encounter Office Visit NELY BOWDEN MD [facility] - In-person encounter Office Visit NELY BOWDEN MD [facility] - In-person encounter Office Visit NELY BOWDEN MD [facility] - In-person encounter Office Visit Piyush Espinosa MD [facility] - In-person encounter Office Visit NELY BOWDEN MD [facility] - In-person encounter Office Visit NELY BOWDEN MD [facility] - In-person encounter Office Visit Piyush Espinosa MD [facility] - In-person encounter Office Visit NELY BOWDEN MD [facility] - In-person encounter Office Visit Piyush Espinosa MD [facility] Arthritis, rheumatoid, chronic - In-person encounter Office Visit NELY BOWDEN MD [facility] - In-person encounter Office Visit NELY BOWDEN MD [facility] - In-person encounter Office Visit NELY BOWDEN MD [facility] - In-person encounter Office Visit NELY BOWDEN MD [facility] - In-person encounter Office Visit Piyush Espinosa MD [facility] - In-person encounter Office Visit NELY BOWDEN MD [facility] - In-person encounter Office Visit NELY BOWDEN MD [facility] - In-person encounter Office Visit NELY BOWDEN MD [facility] - In-person encounter Office Visit Piyush Espinosa MD [facility] - In-person encounter Office Visit Piyush Espinosa MD [facility] - In-person encounter Office Visit Piyush Espinosa MD [facility] - In-person encounter Office Visit NELY BOWDEN MD [facility] - In-person encounter Office Visit Piyush Espinosa MD [facility] Anemia, iron deficiency - In-person encounter Office Visit NELY BOWDEN MD [facility] - In-person encounter Office Visit NELY BOWDEN MD [facility] - In-person encounter Office Visit NELY BOWDEN MD [facility] - In-person encounter Office Visit NELY BOWDEN MD [facility] - In-person encounter Office Visit Norma Arcos [facility] - In-person encounter Office Visit NELY BOWDEN MD [facility] DepressionUnspecified hypothyroidismOther and unspecified hyperlipidemiaAsthma, unspecifiedUrinary incontinenceUnilateral thyroid lobectomyAnemia, unspecified - In-person encounter Office Visit Norma Arcos [facility] - In-person encounter Office Visit [facility] - In-person encounter Office Visit NELY BOWDEN MD [facility] - In-person encounter Office Visit Norma [facility] - In-person encounter Office Visit Norma [facility] - In-person encounter Office Visit Norma [facility] - In-person encounter Office Visit Norma [facility] - In-person encounter Office Visit Norma [facility] - In-person encounter Office Visit Norma [facility] - In-person encounter Office Visit Norma [facility] - In-person encounter Office Visit Norma [facility] - In-person encounter Office Visit Norma [facility] Office VITAL SIGNS Date Observation Value Provider Body Mass Index (Ratio) 42.39 kg/m2 Marya Garcia MD blood pressure, diastolic -1 mm[Hg] Kathy bernalLogshelia blood pressure, systolic 110 mm[Hg] Birgit Rosashelia blood pressure, diastolic 64 mm[Hg] Marielle Anderson blood pressure, systolic 110 mm[Hg] Viv Anderson oxygen saturation, oximetry 98 % Sonja Anderson pulse rate 45 /min Sonja Anderson respiratory rate E&M 12 /min Sonja Anderson weight E&M 247 [lb_av] Sonja Anderson height E&M 64 [in_i] Sonja Anderson blood pressure, cuff size regular Marielle Anderson Body Mass Index (Ratio) 44.28 kg/m2 Marya [...] blood pressure, cuff size large Ke rri Gruenenfelder blood pressure, diastolic 80 mm[Hg] Ke rri Gruenenfelder blood pressure, systolic 144 mm[Hg] Ker ri Gruenenfelder oxygen saturation, oximetry 94 % Aditi Grtylerer respiratory rate E&M 12 /min Aditi G nellieenenfelder pulse rate 61 /min Aditi Gruenenfe lder weight E&M 260 [lb_av] Aditi Gruenenfe lder height E&M 64 [in_i] Aditi Gruenenfe lder blood pressure, diastolic 70 mm[Hg] Ke rri Gruenenfelder blood pressure, systolic 110 mm[Hg] Ker ri Gruenenfelder pulse rate 61 /min Aditi Gruenenfe lder oxygen saturation, oximetry 96 % Aditi Gruenenfelder respiratory rate E&M 16 /min Aditi G ruenenfelder Body Mass Index (Ratio) 49.60 kg/m2 [place] Gruenenfelder weight E&M 289 [lb_av] Aditi Gruenenfe lder blood pressure, diastolic 80 mm[Hg] Ke rri Gruenenfelder blood pressure, systolic 152 mm[Hg] Nichole Peterjoseedjoy pulse rate 63 /min Aditi Alberts lder oxygen saturation, oximetry 95 % Aditi Peterjoseedjoy respiratory rate E&M 16 /min Aditi Poe nelliezenobiajoy Body Mass Index (Ratio) 48.06 kg/m2 Jahaira dwyer Amol weight E&M 280 [lb_av] Aditi Alberts lder blood pressure, diastolic 80 mm[Hg] Love Dumont blood pressure, systolic 160 mm[Hg] Melva Kelly Dumont pulse rate 74 /min Alessio Lipscomb andrey oxygen saturation, oximetry 96 % AlessioLisha Njenson respiratory rate E&M 18 /min Diogenes allen Dumont Body Mass Index (Ratio) 47.95 kg/m2 Caitlyn Tim weight E&M 279.4 [lb_av] Alessio Clem guevara blood pressure, diastolic 83 mm[Hg] Shane Flores RN blood pressure, systolic 159 mm[Hg] Luis Felipe Flores RN pulse rate 70 /min Luis Felipe Flores RN respiratory rate E&M 18 /min Luis Felipe ramos RN Body Mass Index (Ratio) 49.09 kg/m2 Luis Felipe Flores RN weight E&M 286 [lb_av] Luis Felipe Flores RN blood pressure, diastolic 73 mm[Hg] Fl miriam Deon blood pressure, systolic 169 mm[Hg] Marizol lucero Deon pulse rate 71 /min Renée Deon oxygen saturation, oximetry 96 % Renée Deon respiratory rate E&M 16 /min Renée Deon Body Mass Index (Ratio) 47.82 kg/m2 Aspen paul Deon weight E&M 278.6 [lb_av] Renée Deon blood pressure, diastolic 80 mm[Hg] Ish armstrong Rometylersissy blood pressure, systolic 140 mm[Hg] Nichole ri Romeniravjoy pulse rate 70 /min Aditi Alberts lder oxygen saturation, oximetry 96 % Aditi Carmichael respiratory rate E&M 16 /min Aditi G nellieeneedjoy Body Mass Index (Ratio) 47.37 kg/m2 [place] Romeniravjoy weight E&M 276 [lb_av] Aditi Aguayoe lder blood pressure, diastolic 73 mm[Hg] Love Dumont blood pressure, systolic 143 mm[Hg] Melva Dumont pulse rate 62 /min Alessio hernándezon oxygen saturation, oximetry 95 % Alessio Dumont respiratory rate E&M 18 /min Diogenes Dumont Body Mass Index (Ratio) 47.06 kg/m2 CaitlynLisha Dumont weight E&M 274.2 [lb_av] Alessio guevara blood pressure, diastolic 80 mm[Hg] An eatris Brown blood pressure, systolic 136 mm[Hg] Ane atris Brown pulse rate 60 /min Aneatris Brown oxygen saturation, oximetry 96 % Aneatris Brown respiratory rate E&M 18 /min Aneatri s Brown Body Mass Index (Ratio) 47.20 kg/m2 Anea karla Brown weight E&M 275 [lb_av] Aneatris Brown blood pressure, diastolic 70 mm[Hg] Love Edis Dumont blood pressure, systolic 141 mm[Hg] Melva Robin Dumont Body Mass Index (Ratio) 48.43 kg/m2 CaitlynLisha Dumont pulse rate 65 /min Alessio hernándezon oxygen saturation, oximetry 96 % Alessio Dumont respiratory rate E&M 20 /min Diogenes Dumont weight E&M 282.2 [lb_av] Alessio guevara height E&M 64 [in_i] Alessio Lipscomb nsrocio ALLERGIES Allergy Name Onset Date Reaction Criticality Status THOIR Low Criticality active RESULTS Date Observation Value [...] Not Estab. platelet count 230 X10E3/UL [facility] [phone]/03/ 21 red blood cell distribution width 16.0 [...] [facility] 0-149 cholesterol, serum 149 mg/dL [facility] [phone]/03/ 21 alanine aminotransferase (SGPT), serum 18 1/L [...] [facility] 3.5-5.2 sodium, serum 143 mmol/L [facility] [phone]/03/ 21 urea nitrogen/creatinine ratio, serum 16 [facility] [...] [facility] 59.0 - chloride, serum 104.9 [facility] 107[facility] potassium, serum 4.2 mmol/L [facility] 3[facility] - 5.1 sodium, serum 141.0 mmol/L [facility] 136.0 - 145.0 creatinine, serum 0.7 mg/dL [facility] 0.[facility] - 1.0 carbon dioxide, venous blood 22.0 mmol/L [facility] 23[facility] - 31.0 Low albumin, serum 4.2 g/dL [facility] 3.[facility] - 5.2 calcium, serum 9.1 mg/dL [facility] 8.[facility] - 10.2 aspartate aminotransferase (SGOT), serum 19.0 1/L [facility] 0.0 - 32.0 alkaline phosphatase, serum 84.0 1/L [facility] 40.0 - 130.0 alanine aminotransferase (SGPT), serum 18.0 1/L [facility] 0.0 - 33.0 protein, total, serum 6.6 g/dL [facility] 6.6 - 8.7 bilirubin, serum, total 0.3 mg/dL [facility] 0.0 - 1.2 urea nitrogen, blood 12.0 mg/dL [facility] 8.0 - 23.0 blood glucose, random 90.0 mg/dL [facility] 74.0 - 99.0 red blood cell distribution width, size density 57.3 fL [facility] - immature granulocytes, percentage of total cells, blood 0.6 % [facility] - nucleated red blood cells as percent of blood leukocytes 0.0 % [facility] - red blood cell (erythrocyte) count, per high power field 0.0 10*3/UL [facility] - eosinophils as percent of blood leukocytes 2.2 % [facility] - neutrophils as percent of blood leukocytes 62.4 % [facility] - Absolute Neutrophils 4.0 CELLS/UL [facility] 1.5 - 7.8 basophils as percent of blood leukocytes 0.5 % [facility] - Absolute Basophils 0.0 CELLS/UL [facility] 0.0 - 0.2 monocytes as percent of blood leukocytes 7.6 % [facility] - Absolute Monocytes 0.5 CELLS/UL [facility] 0.2 - 1.0 lymphocytes as percent of blood leukocytes 26.7 % [facility] - Absolute Lymphocytes 1.7 CELLS/UL [facility] 0.9 - 3.9 mean platelet volume 12.4 (?) [facility] - platelet count 133.0 THOUSAND/UL [facility] 100.0 - 400.0 mean corpuscular hemoglobin concentration, RBC 29.4 G/DL [facility] 31.0 - 38.0 Low mean corpuscular hemoglobin, RBC 25.9 pg [facility] 25.0 - 35.0 mean corpuscular volume, RBC 88.1 fL [facility] 75.0 - 100.0 hematocrit, blood 40.8 % [facility] 35.0 - 55.0 hemoglobin, blood 12.0 g/dL [facility] 11.5 - 16.5 erythrocyte count, whole blood 4.6 MILLION/UL [facility] 3.5 - 5.5 hemoglobin A1C, blood, as % of total hemoglobin 5.3 % [facility] 4.0 - 5.6 thyroid stimulating hormone, serum 0.005 ??IU/ML [facility] 0.270 - 4.200 Low ferritin, serum 80.5 ng/mL [facility] 13.0 - 150.0 anion gap, serum 12.7 [facility] - albumin/globulin ratio, serum 1.8 g/dL [facility] 1.1 - 2.5 globulin, serum 2.3 [facility] 2.3 - 3.8 urea nitrogen/creatinine ratio, serum 25.0 [facility] Estimated Glomerular Filtration Rate (calc) 108.4 (?) [facility] 59.0 - chloride, serum 106.3 mmol/L [facility] 98.0 - 107.0 potassium, serum 4.1 mmol/L [facility] 3.5 - 5.1 sodium, serum 141.0 mmol/L [facility] 136.0 - 145.0 creatinine, serum 0.6 mg/dL [facility] 0.5 - 1.0 carbon dioxide, venous blood 22.0 mmol/L [facility] 23.0 - 31.0 Low albumin, serum 4.1 g/dL [facility] 3.5 - 5.2 calcium, serum 8.9 mg/dL [facility] 8.6 - 10.2 aspartate aminotransferase (SGOT), serum 17.0 1/L [facility] 0.0 - 32.0 alkaline phosphatase, serum 72.0 1/L [facility] 40.0 - 130.0 alanine aminotransferase (SGPT), serum 17.0 1/L [facility] 0.0 - 33.0 protein, total, serum 6.4 g[facility] 6.6 - 8.7 Low bilirubin, serum, total 0.2 mg/dL [facility] 0.[facility] - 1.2 urea nitrogen, blood 15.0 mg/dL [facility] 6.0 - 20.0 blood glucose, random 91.0 mg/dL [facility] 74.0 - 99.0 red blood cell distribution width, size density 46.9 fL [facility] - immature granulocytes, percentage of total cells, blood 0.3 % [facility] - nucleated red blood cells as percent of blood leukocytes 0.0 % [facility] - red blood cell (erythrocyte) count, per high power field 0.0 10*3/UL [facility] - eosinophils as percent of blood leukocytes 2.3 % [facility] - neutrophils as percent of blood leukocytes 69.5 % [facility] - Absolute Neutrophils 4.5 CELLS/UL [facility] 1.5 - 7.8 basophils as percent of blood leukocytes 0.3 % [facility] - Absolute Basophils 0.0 CELLS/UL [facility] 0.0 - 0.2 monocytes as percent of blood leukocytes 8.4 % [facility] - Absolute Monocytes 0.6 CELLS/UL [facility] 0.2 - 1.0 lymphocytes as percent of blood leukocytes 19.2 % [facility] Absolute Lymphocytes 1.3 CELLS/UL [facility] 0.9 - 3.9 mean platelet volume 11.6 (?) [facility] - platelet count 257.0 THOUSAND/UL [facility] 100.0 - 400.0 mean corpuscular hemoglobin concentration, RBC 29.0 G/DL [facility] 31.0 - 38.0 Low mean [...] 450.0 thyroid stimulating hormone, serum 0.123 ??IU/ML [facility] 0.270 - 4.200 Low ferritin, serum 91.0 ng/mL [facility] 13.0 - 150.0 red blood cell distribution width, size density 59.3 fL [facility] - immature granulocytes, percentage of total cells, blood 0.3 % [facility] - nucleated red blood cells as percent of blood leukocytes 0.0 % [facility] - red blood cell (erythrocyte) count, per high power field 0.0 10*3/UL [facility] - eosinophils as percent of blood leukocytes 3.8 % [facility] - neutrophils as percent of blood leukocytes 60.2 % [facility] - Absolute Neutrophils 3.9 CELLS/UL [facility] 1.5 - 7.8 basophils as percent of blood leukocytes 0.8 % [facility] - Absolute Basophils 0.1 CELLS/UL [facility] 0.0 - 0.2 monocytes as percent of blood leukocytes 7.1 % [facility] - Absolute Monocytes 0.5 CELLS/UL [facility] 0.2 - 1.0 lymphocytes as percent of blood leukocytes 27.8 % [facility] - Absolute Lymphocytes 1.8 CELLS/UL [facility] 0.9 - 3.9 mean platelet volume 11.6 (?) [facility] - platelet count 250.0 THOUSAND/UL [facility] 100.0 [...] - 8.7 bilirubin, serum, total 0.2 mg/dL [facility] 0.0 - 1.2 urea nitrogen, blood 10.0 mg/dL [facility] 6.0 - 20.0 blood glucose, random 90.0 mg/dL [facility] 74.0 - 99.0 red blood cell distribution width, size density 55.3 fL [facility] - immature granulocytes, percentage of total cells, blood 0.7 % [facility] - nucleated red blood cells as percent of blood leukocytes 0.0 % [facility] - red blood cell (erythrocyte) count, per high power field 0.0 10*3/UL [facility] - eosinophils as percent of blood leukocytes 3.2 % [facility] - neutrophils as percent of blood leukocytes 58.6 % [facility] - Absolute Neutrophils 3.5 CELLS/UL [facility] 1.5 - 7.8 basophils as percent of blood leukocytes 0.5 % [facility] - Absolute Basophils 0.0 CELLS/UL [facility] 0.0 - 0.2 monocytes as percent of blood leukocytes 6.7 % [facility] - Absolute Monocytes 0.4 CELLS/UL [facility] 0.2 - 1.0 lymphocytes as percent of blood leukocytes 30.3 % [facility] - Absolute Lymphocytes 1.8 CELLS/UL [facility] 0.9 - 3.9 mean platelet volume 11.4 (?) [facility] - platelet count 252.0 THOUSAND/UL [facility] 100.0 - 400.0 mean corpuscular hemoglobin concentration, RBC 28.5 G/DL [facility] 31.0 - 38.0 Low mean corpuscular hemoglobin, RBC 24.9 pg [facility] 25.0 - 35.0 Low mean corpuscular volume, RBC 87.6 fL [facility] 75.0 - 100.0 hematocrit, blood 41.1 % [...] 2.00 thyroid stimulating hormone, serum 0.005 ??IU/ML [facility] 0.270 - 4.200 Low very low density lipoproteins 24.0 mg/dL [facility] 5.0 - 40.0 LDL/HDL (low-density lipoprotein/high-de nsity lipoprotein) ratio 1.4 RATIO [facility] - lipoprotein, beta, serum, point, [...] - 33.0 protein, total, serum 6.3 g/dL [facility] 6.6 - 8.7 Low bilirubin, serum, total 0.2 mg/dL [facility] 0.0 - 1.2 urea nitrogen, blood 13.0 mg/dL [facility] 6.0 - 20.0 blood glucose, random 83.0 mg/dL [facility] 74.0 - 99.0 red blood cell distribution width, size density 48.5 fL [facility] - immature granulocytes, percentage of total cells, blood 0.2 % [facility] - nucleated red blood cells as percent of blood leukocytes 0.0 % [facility] - red blood cell (erythrocyte) count, per high power field 0.0 10*3/UL [facility] - eosinophils as percent of blood leukocytes 7.6 % [facility] - neutrophils as percent of blood leukocytes 50.5 % [facility] - Absolute Neutrophils 2.9 CELLS/UL [facility] 1.5 - 7.8 basophils as percent of blood leukocytes 0.4 % [facility] - Absolute Basophils 0.0 CELLS/UL [facility] 0.0 - 0.2 monocytes as percent of blood leukocytes 9.0 % [facility] - Absolute Monocytes 0.5 CELLS/UL [facility] 0.2 - 1.0 lymphocytes as percent of blood leukocytes 32.3 % [facility] - Absolute Lymphocytes 1.8 CELLS/UL [facility] 0.9 - 3.9 mean platelet volume 11.5 (?) [facility] - platelet count 262.0 THOUSAND/UL [facility] 100.0 - [...] 6.0 thyroid stimulating hormone, serum 0.005 ??IU/ML [facility] [...] cell distribution width, size density 56.5 fL [facility] - immature granulocytes, percentage of total cells, blood 0.3 % [facility] - nucleated red blood cells as percent of blood leukocytes 0.0 % [facility] - red blood cell (erythrocyte) count, per high power field 0.0 10*3/UL [facility] - eosinophils as percent of blood leukocytes 2.3 % [facility] neutrophils as percent of blood leukocytes 75.6 % [facility] - Absolute Neutrophils 5.6 CELLS/UL [facility] 1.5 - 7.8 basophils as percent of blood leukocytes 0.4 % [facility] - Absolute Basophils 0.0 CELLS/UL [facility] 0.0 - 0.2 monocytes as percent of blood leukocytes 5.7 % [facility] - Absolute Monocytes 0.4 CELLS/UL [facility] 0.2 - 1.0 lymphocytes as percent of blood leukocytes 15.7 % [facility] - Absolute Lymphocytes 1.2 CELLS/UL [facility] 0.9 - 3.9 mean platelet volume 11.6 (?) [facility] - platelet count 269.0 THOUSAND/UL [facility] 100.0 - 400.0 mean corpuscular hemoglobin concentration, RBC 28.7 G/DL [facility] 31.0 - 38.0 Low mean corpuscular hemoglobin, RBC 24.8 pg [facility] 25.0 - 35.0 Low mean corpuscular volume, RBC 86.6 fL [facility] 75.0 - 100.0 hematocrit, blood 40.1 % [facility] 35.0 - 55.0 hemoglobin, blood 11.5 g/dL [facility] 11.5 - 16.5 erythrocyte count, whole blood 4.6 MILLION/UL [facility] 3.5 - 5.5 iron binding capacity, unsaturated 192.0 ??G/DL [facility] 112.0 - 347.0 ferritin, serum 97.9 ng/mL [facility] 13.0 - 150.0 iron binding capacity, total 230.0 (?) [facility] - iron, serum 38.0 ug/dL [facility] 25.0 - 156.0 red blood cell distribution width, size density 59.4 fL [facility] - immature granulocytes, percentage of total cells, blood 0.4 % [facility] - nucleated red blood cells as percent of blood leukocytes 0.0 % [facility] - red blood cell (erythrocyte) count, per high power field 0.0 10*3/UL [facility] - eosinophils as percent of blood leukocytes 5.6 % [facility] - neutrophils as percent of blood leukocytes 41.9 % [facility] - Absolute Neutrophils 1.9 CELLS/UL [facility] 1.5 - 7.8 basophils as percent of blood leukocytes 0.4 % [facility] - Absolute Basophils 0.0 CELLS/UL [facility] 0.0 - 0.2 monocytes as percent of blood leukocytes 11.4 % [facility] - Absolute Monocytes 0.5 CELLS/UL [facility] 0.2 - 1.0 lymphocytes as percent of blood leukocytes 40.3 % [facility] - Absolute Lymphocytes 1.8 CELLS/UL [facility] 0.9 - 3.9 mean platelet volume 11.5 (?) [facility] - platelet count 231.0 THOUSAND/UL [facility] 100.0 - 400.0 mean corpuscular hemoglobin concentration, RBC 28.3 G/DL [facility] 31.0 - 38.0 Low mean corpuscular hemoglobin, RBC 24.1 pg [facility] 25.0 - 35.0 Low mean corpuscular volume, RBC 85.2 fL [facility] 75.0 - 100.0 hematocrit, blood 37.5 % [facility] 35.0 - 55.0 hemoglobin, blood 10.6 g/dL [facility] 11.5 - 16.5 Low erythrocyte count, whole blood 4.4 MILLION/UL [facility] 3.5 - 5.5 iron binding capacity, unsaturated 204.0 ??G/DL [facility] 112.0 - 347.0 ferritin, serum 129.8 ng/mL [facility] 13.0 - 150.0 iron binding capacity, total 242.0 (?) [facility] - iron, serum 38.0 ug/dL [facility] 25.0 - 156.0 red blood cell distribution width, size density 62.4 fL [facility] - immature granulocytes, percentage of total cells, blood 0.4 % [facility] - nucleated red blood cells as percent of blood leukocytes 0.0 % [facility] - red blood cell (erythrocyte) count, per high power field 0.0 10*3/UL [facility] - eosinophils as percent of blood leukocytes 4.3 % [facility] - neutrophils as percent of blood leukocytes 64.7 % [facility] - Absolute Neutrophils 5.3 CELLS/UL [facility] 1.5 - 7.8 basophils as percent of blood leukocytes 0.2 % [facility] - Absolute Basophils 0.0 CELLS/UL [facility] 0.0 - 0.2 monocytes as percent of blood leukocytes 7.2 % [facility] - Absolute Monocytes 0.6 CELLS/UL [facility] 0.2 - 1.0 lymphocytes as percent of blood leukocytes 23.2 % [facility] - Absolute Lymphocytes 1.9 CELLS/UL [facility] 0.9 - 3.9 mean platelet volume 11.3 (?) [facility] - platelet count 303.0 THOUSAND/UL [facility] 100.0 - 400.0 mean corpuscular hemoglobin concentration, RBC 27.8 G/DL [facility] 31.0 - 38.0 Low mean corpuscular hemoglobin, RBC 23.7 pg [facility] 25.0 - 35.0 Low mean corpuscular volume, RBC 85.0 fL [facility] 75.0 - 100.0 hematocrit, blood 33.4 % [facility] 35.0 - 55.0 Low hemoglobin, blood 9.3 g/dL [facility] 11.5 - 16.5 Low erythrocyte count, whole blood 3.9 MILLION/UL [facility] 3.5 - 5.5 ferritin, serum 152.2 ng/mL [facility] 13.0 - 150.0 High red blood cell distribution width, size density 65.1 fL [facility] - immature granulocytes, percentage of total cells, blood 0.5 % [facility] nucleated red blood cells as percent of blood leukocytes 0.0 % [facility] red blood cell (erythrocyte) count, per high power field 0.0 10*3/UL [facility] eosinophils as percent of blood leukocytes 3.3 % [facility] - neutrophils as percent of blood leukocytes 50.6 % [facility] - Absolute Neutrophils 3.4 CELLS/UL [facility] 1.5 - 7.8 basophils as percent of blood leukocytes 0.5 % [facility] - Absolute Basophils 0.0 CELLS/UL [facility] 0.0 - 0.2 monocytes as percent of blood leukocytes 8.7 % [facility] Monocytes Complains of indigestion/ heartburn; Denies nausea, vomiting, diarrhea, constipation , abdominal pain, jaundice, gas/bloating [facility] 0.2 - 1.0 lymphocytes as percent of blood leukocytes 36.4 % [facility] - Absolute Lymphocytes 2.4 CELLS/UL [facility] 0.9 - 3.9 mean platelet volume 11.8 (?) [facility] - platelet count 268.0 THOUSAND/UL [facility] 100.0 [...] Status Instructions Dates Provider Indications Com ments metoprolol tartrate 25 mg tablet completed - Daisha John [employer]URING ENGINE[employer] albuterol sulfate 90 mcg/actuation HFA aerosol inhaler active INHALE 1 PUFF BY MOUTH EVERY 4 HOURS NEEDED Daisha John NP omeprazole 40 mg capsule,delayed release(DR/EC) active Daisha John [employer]URING ENG[employer] amlodipine 5 mg tablet active Daisha John [employer]UFACTURING ENG[employer] alendronate 70 mg tablet active Daisha John [employer]UFACTURING ENGINE[employer] levothyroxine 175 mcg tablet active TAKE 1 TABLET BY MOUTH EVERY DAY IN THE MORNING Daisha John NP lisinopril 20 mg tablet completed 1 tablet twice a day - Daisha John NP Enbrel SureClick 50 mg/mL (1 mL) [...] ORAL TABLET completed 3 times daily - [facility] Trileptal 300 mg tablet active 1 tablet [...] 1 tablet once a day Aditi Carmichael Levoxyl 112 mcg tablet active Take 1 [...] one tab 4 times daily - NELY OBWDEN MD SOCIAL HISTORY Date Observation Value Provider personal history of marijuana use no Michael Garcia MD drug use no Michael Garcia MD alcohol use no Michael Garcia MD smoking/tobacco cess ation, patient education and counseling yes Michael Garcia MD smoking history, tot al pack/day 0.75 Michael Garcia MD cigarette use yes Michael Mendez smoking status Current every day smoker U leeroy Garcia MD personal history of marijuana use no Renae [...] Mendez smoking status Current every day smoker Nick Garcia MD social history reviewed E&M revi ewed - no changes required Piyush Espinosa MD alcohol use no Aditi Alberts lder cigarette use yes Aditi hamilton smoking status Former smoker Aditi Perera edelder smoking status Former smoker Piyush mendez MD [...] Espinosa MD alcohol use no Alessio Lipscomb andrey cigarette use yes Alessio tesfayerocio smoking status Former smoker Alessio Ashford alcohol [...] ago S mara for 22 years P xiomara is a former smoker. A lcohol Use - no Smoking History: Eliot solano is a former smoker. Piyush Espinosa MD cigarette use yes Alessio guevara smoking status Former smoker Piyush mendez MD FUNCTIONAL STATUS Date Observation Value Provider HRA, CV Assess/Plan, Angina (inactive) Management Plan continue current therapy, antianginal therapy Renae Hernandez [employer] HRA, CV Assess/Plan, Angina (inactive) Management Plan continue current therapy Michael Garcia MD FAMILY HISTORY Family Member Condition Father Family History of Co marci Cancer Mother Family History of Ot her Diseases INSURANCE PROVIDERS Payer name Policy type / Coverage type [place] [employer] party ID AARP [facility] ADVANTAGE PLAN 2 (HMO-POS) Medicare [id number] ADVANCE DIRECTIVES Name Date DISCUSSED - NO DECISION MADE TREATMENT PLAN Date Name Performer Cardiology:check mon itor to asssess if she is having pAfib, EKG today shows SB. D eveloped afib in the setting of UTI and pneumonia S ee Dr Howard for amulet evlauren as she has frequent falls and anemia Michael Garcia MD Cardiology:Continue medical therapy. H ad recent admission for adhf, appears to be more compensated today in the office Michael Garcia MD Cardiology:Has known CAD, having chest pain, she missed her last scheduled appt for pet stress, her chest pain has continued, will re-order pet Patient has history of coronary atherosclerosis, worsening symptoms of chest pain or shortness of breath, BMI>35, and is unable to exercise on treadmill long enough to achieve target heartrate. I am ordering a Stress PET-CT to further evaluate. Michael Garcia MD Cardiology:check mon itor D eveloped afib in the setting of UTI and pneumonia S ee Dr Howard for amulet evlauren as she has frequent falls and anemia Michael Garcia MD Cardiology: H er updated medication list for this problem includes: Atorvastatin 20 Mg Tablet (Atorvastatin) ..... Once a day Michael Garcia MD Cardiology:This visi t has been a part of the consistent, comprehensive, and ongoing management of the chronic medical condition(s) listed above for the patient. The following medications were removed from the medication list: Lisinopril 20 Mg Tablet (Lisinopril) ..... 1 tablet twice a day Her updated medication list for this problem includes: Metoprolol Tartrate 25 Mg Tablet (Metoprolol tartrate) Amlodipine 5 Mg Tablet (Amlodipine) BP today: 110/64 P rior BP: 142/97 (12/03/2023) Labs Reviewed: C reat: 0.77 (05/26/2017) C hol: 149 (05/26/2017) HDL: 50 (05/26/2017) LDL: 72 (05/26/2017) T (05/26/2017) Michael Garcia MD Cardiology:Continue medical ther apy. Michael Garcia MD Cardiology:Has known CAD, having chest pain P atient has history of coronary atherosclerosis, worsening symptoms of chest pain or shortness of breath, BMI>35, and is unable to exercise on treadmill long enough to achieve target heartrate. I am ordering a Stress PET-CT to further evaluate. Michael Garcia MD Cardiology: P atanisha has history of coronary atherosclerosis, worsening symptoms of chest pain and shortness of breath, BMI>35, and is unable to exercise on treadmill long enough to achieve target heartrate. I am ordering a Stress PET-CT to further evaluate. Renae Hernandez NP Cardiology: A waiting records from previous provider. P atient c/o shortness of breath with with exertion [...] cath, echo, and stress testing from [facility] echo to assess LV systolic function and valvular funciton Michael Garcia MD Cardiology:WIll obta in her cath, echo, and stress testing from [facility] Michael Garcia MD Hem/Onc Follow up:Th e patient complains of fatigue and weight gain. Given these symptoms, I will not decrease her levothyroxine any further despite her TSH still being suppressed. I will repeat TSH with reflext FT4 upon return visit. Orders: T SH reflex FT4 (08227) 9 9214 MOD Complex (CPT-19614) Piyush Espinosa MD Hem/Onc Follow up:Th e patient's iron stores remain repleted. She will conitnue every two month IV iron infusions. She will return in three months for follow up and repeat iron stores. Orders: S NOMED-CT: [id number] Current Medications Documented (SCT-[id number]) C BC (INCLUDES DIFF/PLT) (6399) C OMPREHENSIVE METABOLIC PANEL W/EGFR (40418) F ERRITIN (457) I EVER AND TOTAL IRON BINDING CAPACITY (7573) 9 9214 MOD Complex (CPT-47482) Piyush Espinosa MD Hem/Onc Follow up :T he patient has not had repeat thyroid studies. Recheck TSH. Defer adjustment in thyroid medication to Dr. Bowden. Orders: T SH + Free T4 ([id number]) C BC (INCLUDES DIFF/PLT) (6399) F ERRITIN (457) I EVER AND TOTAL IRON BINDING CAPACITY (7573) 9 9214 MOD Complex (CPT-57029) Piyush Espinosa MD Hem/Onc Follow up :T he patient's hemoglobin remains stable on a every two month IV iron infusion. She will continue current schedule. She will return in three months for follow up. Labs 1 week prior to office visit. Orders: C BC (INCLUDES DIFF/PLT) (6399) F ERRITIN (457) I EVER AND TOTAL IRON BINDING CAPACITY (7573) 9 9214 MOD Complex (CPT-74749) Piyush Espinosa MD Hem/Onc:I have decre ased [...] prior to office visit. Orders: S NOMED-CT: [id number] Current Medications Documented (SCT-[id number]) C BC (INCLUDES DIFF/PLT) (6399) C OMPREHENSIVE METABOLIC PANEL W/EGFR (35920) F ERRITIN (457) I EVER AND TOTAL IRON BINDING CAPACITY (7573) R ETICULOCYTE COUNT, MANUAL (8699) 9 9214 MOD Complex (CPT-51945) Piyush Espinosa MD Hem/Onc:Her Hgb has normalized. Her transferrin saturation is improved but still less than 20%. I will change her IV iron infusion to every two months. She will return in three months for follow up. Labwork 1 week prior to office visit. Orders: C BC (INCLUDES DIFF/PLT) (6399) C OMPREHENSIVE METABOLIC PANEL W/EGFR (07848) R ETICULOCYTE COUNT, MANUAL (8699) I EVER AND TOTAL IRON BINDING CAPACITY (7573) F ERRITIN (457) 9 9213 LTD. Complex (CPT-21551) Piyush Espinosa MD Hem/Onc Follow up :Anna [...] bone marrow biopsy results. Orders: S NOMED-CT: [id number] Current Medications Documented (SCT-[id number]) F ERRITIN (457) C BC (INCLUDES DIFF/PLT) [...] this plan. Orders: 9 9203 LTD. Complex (CPT-81472) Piyush Espionsa MD Date Name myocardial blood rubens w (PET) Stress Cardiac PET-C T Complete Echo Monitor - Telemetry (Mobile Cardiac) myocardial blood rubens w (PET) Stress Cardiac [...] Procedure Name Provider Procedure Notes S tatus Complex e/m visit add on Michael Garcia MD [06/15/2024 - briana] APPROVED [ 06/12/2024 - briana] Pending completed EKG Michael Garcia MD completed Stress EKG NELY BOWDEN MD completed Regadenoson, 4 units NELY BOWDEN MD completed Cardiolite, 2 units NELY BOWDEN MD completed SPECT Images Jasbir Duggan MD complet ed SNOMED-CT: [id number] Current Medications Documented Piyush Espinosa MD completed SNOMED-CT: 107127932228621 Current Medications Documented Piyush Espinosa MD completed SNOMED-CT: 773402405955513 Current Medications Documented Piyush Espinosa MD completed SNOMED-CT: 059743436790301 Current Medications Documented Piyush Espinosa MD completed SNOMED-CT: 322263027706618 Current Medications Documented Piyush Espinosa MD completed SNOMED-CT: 896287663277651 Current Medications Documented Piyush Espinosa MD completed ePrescribe - Check t his box if eRx is used NELY BOWDEN MD completed
--- OUTSIDE RECORDS SUMMARY | 2024-06-21 16:53 | XMS_ITS | Data Portability ---
Author Organization [facility] SURINDERNick Nichols Address [address] [place] [address] Care Team Providers Care Thread Winder Automatic Name Role Phone ROTHMANANITRA Primary Care Provider Assessment Encounter Date Assessment Date Assessment LastModified by Organization Details LastModified Time 04/17/2019 04/17/[address] Almaraz every 5 years for colonoscopy; has mammogram ordered in 1 week, Sung also does EGD with esophageal dilation every year. Patient quit smoking but still has a little emphysema. [email or web address] Not available 04/27/2019 23:12:00 Plan of Treatment Reminders Order Date Submit Date Provider Last Modified By Organization Details Last Modified Time Details Appointments None recorded. Lab None recorded. Referral rheumatol ogist referral - Please call patient and schedule appt. Please send consult note after initial visit. Thank you [address] [facility] Suzanne Zaman MD, [address] , [address], [address], 0 12:04:57 Procedures None recorded. Surgeries None recorded. Imaging MAMMO, diagnosti c, digital, bilateral 2019 020 [facility] (Mammography) , [address], [place], [address], 0 12:35:21 US, breast, bilateral 2019 020 [facility] (Mammography) , [address], [place], [address], 0 12:35:21 Medication Orders None recorded. Patient TargetsNo targets recorded. Patient Instructions Encounter Date Encounter Id Patient Instructions Last Modified By Organization Details Last Modified Time 04/17/2019 [id number] rheumatoid arthritis diet: care instructions [email or web address] Not available 04/27/2019 23:15:29 Rheumatoid Arthritis (RA): Care Instructions [email or web address] Not available 04/27/2019 23:15:29 Reason for Referral Laser Technician Referral for Rheumatoid arthritis Please call patient and schedule appt. Please send consult note after initial visit. Thank you Referring Physician: Anitra Rothman, Family Medicine, Encounter Date: 04/17/2019 Problems No Known Problems Procedures Surgical History Date Name Laterality Status Provider Name and Address Organization Details Recorded Time 03/08/18 90 total hysterectomy completed JOSUE Poon [facility] 04/17/2019 11:47:44 total knee replacement completed JOSUE Poon [facility] 04/17/2019 11:46:29 Carpal tunnel surgery completed JOSUE Poon [facility] 04/17/2019 11:46:34 Carpal tunnel surgery completed JOSUE Poon [facility] 04/17/2019 11:46:34 Carpal tunnel surgery completed JOSUE Poon [facility] 04/17/2019 11:46:35 tonsillectomy completed JOSUE Poon [facility] 04/17/2019 11:46:41 Imaging Results None recorded. [...] % 97 % 64 /min 42.9 kg/m2 042023. 38 g 132 mm[Hg] 72 mm[Hg] Juana Smith MA [facility] 0 11:50:09 Social History Question Answer Notes LastModified by Organizat ion Details LastModified Time Tobacco Smoking Status Former Smoker Juana Smith MA null, [facility] 04/17/2019 11:44:42 Do You Have An Advance [...] Eating Disorder N Anemia N Heart Attack (CA) N Anxiety Disorder N Diabetes N Muscle, Joint, or Bone Problems N Seizures/Epilepsy N Acid Reflux (GERD) Y Cancer N Stroke N Asthma N Allergies Y ADHD N Substance Abuse N High Cholesterol Y Hepatitis N Liver Disease N Schizophrenia N Headaches N Heart Failure Y Osteoporosis N Gynecological History Statement/Question Response Date of Last [...] unspecified formulation 12/06/2018 completed Juana Smith MA [facility], [place] [facility] 04/17/2019 11:49:45 Past Encounters Encounter ID Performer Location Encounter Start Date Encounter Closed Date Diagnosis/Indication Diagnosis SNOMED-CT Code Diagnosis ICD10 Code Diagnosis Note [id number] Anitra Rothman MD [facility] [address] [place] [address] 04/17/2019 11:31:59 04/28/2019 09:32:12 Rheumatoid arthritis 63741343 M06.9 enbrel shots weekly, Depression screening 171 650819 Z13.31 patient does not appear to be significan tly depressed. [id number] Anitra Rothman MD [facility] [address] [facility] [place] [address] 11/06/2019 11:55:37 11/06/2019 14:59:31 Non-cyclical mastalgia 391139867 N64.4 patient denies taking hormone replacemen t [...] Name 04/17/2019 1 [employer] (MEDICARE REPLACEMENT HMO) [id number] Alisha Arguello [id number] Alisha Arguello 11/06/2019 1 [employer] - PRIME (MEDICARE REPLACEMENT/A DVANTAGE - HMO) [id number] Alisha Arguello [id number] Alisha Arguello Notes Date Note Type Note Provider Name and Address Organization Details Recorded Time 04/17/2019 text/html Pt. states she i s here to establish care and needs a referral Anitra Rothman MD Attn: [address] [place], [address], [facility] 04/27/2019 23:16:21 11/06/2019 text/html Breast PainReported bypatient.Location :bilateral Onset/Timin-4 weeks Duration:intermitt ent Quality:sharp; stabbing Severity:moderate Context:[place] radha Modifying Factors:touch; exercise; pressure Associated Symptoms:no fever; no chills; no nipple discharge; no breast swelling; no arm pain; no arm swelling; no chest pain; no malaise; facial infection treated with antibiotics; denies infections on hands or arms or abdominal wal. Anitra Rothman MD Attn: [address] [place], [address], [facility] 11/06/2019 23:54:55 OBGyn Episode Ob Episode Information Episode Created Date Number of Fetuses Patient Bloodtype Patient rh Status Prepregnancy Weight lbs Domestic Partner Domestic Partner Phone Father Name Collection Specialist Status 04/17/19 20 1 CLOSED Fetus Data First Name Last Name Admitted to NICU Weight (g) Sex Living Outcome Pediatric Complications Fetus ID Race Codes Race Delivery Type 01003 Memo Calculation Initial Memo Date Initial Exam [...]
--- OUTSIDE RECORDS SUMMARY | 2024-06-21 16:53 | XMS_ITS | Clinical Summary ---
Author Organization [facility] [employer] Address [address] [place] [address] Care Team Providers Care Forge Tender Name Role Phone Unavailable Primary Care Provider Unavailabl e Source Comments [facility] [employer],non-owned Affiliates and Associated Physician Practices is amultiple site organization consisting of ambulatory clinics and hospital sitesin [place], [place], [place] and [place]. This disclosure is being madepursuant to the Care Everywhere program and may not contain all information available regarding this patient. Last updated 17.[employer] Allergies No known active allergies Medications * Be aware that medications may not be up to date on this document. Alwaysverify current medications with the patient. topiramate (TOPAMAX) 100 MG tablet Take 100 [...] 40 mg by mouth at bedtime. Active albuterol-iprat ropium (COMBIVENT) 18-103 MCG/ACT inhaler Inhale 2 Puffs [...] Active ibuprofen (ADVIL; MOTRIN) 100 MG/5ML SUSP suspensionIndic ations:Rheumato id Arthritis Take 200 mg by mouth every 6 hours as needed. Indications: Rheumatoid Arthritis Active TRAMADOL HCL ER PO Take 1 Tab by mouth as needed. Active predniSONE (DELTASONE) 10 MG tablet Take 10 mg by mouth once daily. Active Active Problems Problem Noted Date Diagnosed Date Rheumatoid arthritis 02/22/2012 Overview (01/13/2015): Immunizations Immunization Administration Dates Next Due INFLUENZA VACCINE, QUADR. [...] at Not on file Legal Sex Female 6:37 AM [employer] Gender Identity Not on file Sexual Orientation [...] 1-dose series) 2015 COVID-19 VACCINE (1 - season) 2023 DEPRESSION SCREENING 03/08/2024 INFLUENZA VACCINE (Season Ended) 2024 01/05/2020, 11/28/2018, 12/14/2017, Additional history exists HEPATITIS B VACCINE Aged Out No longe r eligible based on patient's age to complete this topic HIB VACCINE Aged Out No longer eligi ble based on patient's age to complete this topic HPV VACCINE Aged Out No longer eligi ble based on patient's age to complete this topic MENINGOCOCCAL (Group B) VACCINE SHARED DECISION-MAKING Aged Out No longer eligible based on patient's age to complete this topic MENINGOCOCCAL GROUPS A/C/Y/W VACCINE Aged Out No longer eligible based on patient's age to complete this topic Insurance [employer] MEDICARE ADV Advance Directives Documents on File Type Date Recorded Patient Certified Family Mediator Expl anation Adv Directive/Living Will/POA 06/20/2012 12:56 PM RECOVERY RX
--- OUTSIDE RECORDS SUMMARY | 2024-06-21 16:53 | XMS_ITS | Data Portability ---
Author Organization [place] - [facility] Ayannah, Main Office Address [address] [place] [address] Assessment Encounter Date Assessment Date Assessment LastModified [...] Nicotine cessation counseling provided for 4 minutes. [place] for quitting nicotine include getting ready, getting [...] Registering at [email or web address] Making a call to 6-901-QPOC-NOW ( ). A strong, clear, personalized message [...] failure or relapse. Patient can enroll in [facility]'s smoking cessation class through Geraldine Escobedo RN at . Enrollment is free and classes are held every wednesday of the month from 1:30 pm to 2:30 pm at the conference room next to the cafeteria on the ground floor. The [place] [employer] recommends annual screening for lung cancer with low-dose computed tomography (LDCT) for people aged 50 to 80 years old who smoke or formerly smoked and have a 20-year or greater pack-year history. Screening is no longer discontinued even when a person has not smoked for 15 years. LDCT scan ordered. Cough/Dyspnea workup will be done as follows: Respiratory allergen panel for [facility] Serum IgE Serum total IgG, IgG1, IgG2, IgG3, IgG4 Fbqjl-2-zbyugzqkpz n phenotype and level TB stimulated gamma [...] CPAP for JANET. Nicotine cessation counseling provided. [place] for quitting nicotine include getting ready, getting [...] in Quit For Life program Registering at [email or web address] Making a call to 0-348-XYFP-NOW ( ). A strong, clear, personalized message [...] failure or relapse. Patient can enroll in [facility]'s smoking cessation class through Geraldine Escobedo RN at . Enrollment is free and classes are held every wednesday of the month from 1:30 pm to 2:30 pm at the conference room next to the cafeteria on the ground floor. The [place] [employer] recommends annual screening for lung [...] Organization Details Last Modified Time Details Appointments Follow Up 30 2024 10:30A Anna Wilson MD Not available Not available Not available Lab alpha-1-a ntitrypsi n (aat) phenotype , serum 2023 024 [email or web address] 5 [facility] ([facility]), [address] [place], [address], 07/20/2023 10:54:35 BNP (B-type natriuret ic peptide), serum or plasma 2023 024 CHRIS [facility] (Lab), [address] [place], [address], 04/08/2023 14:15:37 ige, total, serum 2023 024 [id number] 5 [facility] (Lab), [address] [place], [address], 07/20/2023 10:54:35 tb (M tuberculo sis), ifn-gamma ne, blood 2023 024 [id number] 5 [facility] (Lab), [address] [place], [address], 07/20/2023 10:54:35 eosinophi l count, manual, blood (OBS) 2023 024 5 [facility] (Lab), [address] [place], [address], 07/20/2023 10:54:[address] s 1+2+3+4, serum [id number] [place] [address] (Lab), [address] [place], [address], 07/20/2023 10:54:35 respirato ry allergen panel - [facility] a 2023 024 [email or web address] 5 [facility] (Lab), [address] [place], [address], 07/20/2023 10:54:35 respirato ry allergen panel - [facility] b [id number] [place] [address] (Lab), [address] [place], [address], 07/20/2023 10:54:35 Referral None recorded. Procedures None recorded. Surgeries None recorded. Imaging LDCT, chest, for lung cancer screening [id number] ([facility]), [address] [place], [address], 05/17/2024 15:35:54 LDCT, chest, for lung cancer screening - Nicotine smoke: 1 ppd 1970-pres ent (quit 20 years in between) = 33 pack years; no auth required 2023 024 [facility] ([facility]), [address] [place], [address], 04/16/2023 11:40:22 Medication Orders albuterol sulfate HFA 90 mcg/actua tion aerosol inhaler 2023 024 [facility]/Pharmacy #[id number], [address], [place], [address], 06/10/2023 12:55:46 Trelegy Ellipta 100 mcg-62.5 mcg-25 mcg powder for inhalatio n 2023 024 [facility]/Pharmacy #[id number], [address], [place], [address], 06/10/2023 12:55:46 Patient TargetsNo targets recorded. Patient Instructions Encounter Date Encounter Id Patient Instructions Last Modified By Organization Details Last Modified Time 04/08/2023 [id number] methacholine challenge* CHRIS Not available 06/11/2023 12:37:59 06/10/2023 [id number] complete PFT w/ post bronchodilator spirometry* [place] [address] Not available 05/17/2024 15:34:56 Reason for Referral None Reported. Results Created Date Observation Date Name Description Value Unit Range Abnormal Flag Note LastModifiedBy Organization Detail LastModifiedTime 04/13/19 24 04/19/2016 polys omnog radha, split night No observ ation record ed. BARCODE Not Available 2023 14:28:14 04/13/19 24 02/16/2017 compl ete PFT w/ post [facility] hodil ator zev metry * No observ ation record ed. BARCODE Not Available 2023 14:28:15 04/16/19 24 04/16/2023 LDCT, chest , for lung yanelis pierce No observ ation record ed. [email or web address] [place] [address] [address] [place], [address], 04/16/2023 14:57:37 06/11/19 24 06/10/2023 metha choli ne chall enge* No observ ation record ed. BARCODE [facility] ([facility]) [address] [place], [address], 06/11/2023 12:37:59 Result Notes None recorded. Problems Name Problem SNOMED Code Status Onset Date Resolution Date Notes Provider Name and Address Organization Details Recorded Time Bipolar disorder 10025655 Active Not Available [facility] 3 07:30:17 Gastroeso phageal reflux disease 635051067 Active Not Available [facility] 3 07:30:17 Restless legs 37374693 Active Not Available [facility] 3 07:30:17 Depressiv e disorder 30521447 Active Not Available [facility] 07:30:17 Arthritis 1108533 Active Not Available [facility] 3 07:30:18 Hypoxemia 728725331 Active nocturnal Not Available [facility] 3 07:30:18 Body mass index 40+ - severely obese 610659110 Active 2016 Not Available [facility] 3 07:30:18 Hypothyro idism 34024478 Active Not Available [facility] 3 07:30:18 Obesity 669138703 Active Not Available [facility] 3 07:30:18 Obstructi ve sleep apnea syndrome 69957914 Active Not Available [facility] 3 07:30:18 Smoker 07548887 Active 2023 Eduardo Wilson MD [address] [facility], [address], [place], [address] , [facility] [employer] [facility] 4 11:05:46 Moderate persisten t asthma 651343545 Active 2023 Eduardo Wilson MD [address] 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 Procedures Surgical History None recorded. Imaging Results Imaging Date Name Status LastModified by Organization Details LastModified Time 04/19/2016 polysomnogram, split night completed [facility] Information not available 04/13/2023 14:28:14 02/16/2017 complete PFT w/ post bronchodilator spirometry* completed [facility] Information not available 04/13/2023 14:28:15 04/16/2023 LDCT, chest, for lung cancer screening completed [address] [place], [address], 04/16/2023 14:57:37 06/10/2023 methacholine challenge* completed [facility] ([facility]) [address] [place], [address], 06/11/2023 12:37:59 Procedure Notes None recorded. Medical Equipment None Reported. Allergies Allergen ID Allergen Name Allergen Category Reaction Reaction Severity Criticality Documentation Date Start Date Code Code System Note Provider Name and Address Organization Details Recorded Time 44767 Singulair medicatio n Not available Not available Not available 05/06/2022 12422 9 RxNorm Not Available [facility] 3 07:36:29 [...] Available Not Available Not Available Flucelvax Quad 0315-6837 (PF) 60 mcg (15 mcg x 4)/0.5 [...] Last Updated DateTime 157.48 cm 49.1 kg/m2 623750. 47 g 98.1 [degF] 95 % 95 % 144 mm[Hg] 70 mm[Hg] Joan Anguiano MA [employer] 10:25:44 Date Recorded Heart rate Heart rate Respiratory rate Provider Name and Address Organization Details Last Updated DateTime 04/08/2023 60 /min 60 /min 15 /min Eduardo Wilson MD [address] [facility], [facility] [address], [place], [address], [employer] 04/08/2023 10:47:04 Date Recorded Body height Body mass index (BMI) Body weight Body temperature Heart rate Systolic blood pressure Diastolic blood pressure Provider Name and Address Organization Details Last Updated DateTime 157.48 cm 48.5 kg/m2 585702. 7 g 97.7 [degF] 65 /min 128 mm[Hg] 66 mm[Hg] Joan Anguiano MA [facility] 12:38:12 Date Recorded Oxygen saturation Oxygen saturation in Arterial blood by Pulse oximetry Heart rate Respiratory rate Provider Name and Address Organization Details Last Updated DateTime 06/10/2023 95 % 95 % 65 /min 14 /min Eduardo Wilson MD [address] [facility], [facility] [address], [place], [address], [employer] 12:52:41 Social History Question Answer Notes LastModified by Organizat ion Details LastModified Time Tobacco Smoking Status Current Every Day Smoker Joan Anguiano MA null, [employer] 04/08/2023 10:32:14 What Is Your Level Of [...] available 04/08/2023 What Is Your Occupation? Disabled [id number] Information not available 05/06/2022 Do You Have [...] Anxious, Or Unable To Sleep At Night)? [id number] Information not available 04/08/2023 Do You Use [...] preservative 7 completed Not Available [facility] 05/06/2022 07:36:24 influenza, unspecified formulation 7 completed Not Available [facility] 05/06/2022 07:36:24 influenza, unspecified formulation 6 completed Not Available [facility] 05/06/2022 07:36:25 Past Encounters Encounter ID Performer Location Encounter Start Date Encounter Closed Date Diagnosis/Indication Diagnosis SNOMED-CT Code Diagnosis ICD10 Code Diagnosis Note [id number] Eduardo Wilson MD [place] [address] 0 04/08/2023 09:55:11 04/08/2023 15:37:34 Dyspnea on exertion 67701259 R06.09 R05.3 T78.40XA D89.9 Smoker 00439342 F17.218 F17.219 Z87.689 [id number] Eduardo Wilson MD [facility] [address] 06/10/2023 12:27:59 06/11/2023 08:56:05 Smoker 38984626 F17.218 F17.219 Z87.891 Moderate p ersistent asthma 371608977 J45.40 Health Concerns Section Related Observation LastModified by Organization Detai ls LastModified Time None Recorded Concern Status LastModified by Organization Details LastModified Time None Recorded Advance Directives Directive None Recorded Payers Encounter Date Sequence Insurance Name Policy Number Policy Church Covered Member ID Church Member ID Guarantor Name 04/08/2023 1 [facility] (MEDICARE REPLACEMENT/A DVANTAGE - PPO) [id number] Alisha Arguello [id number] Alisha Arguello 06/10/2023 1 [facility] (MEDICARE REPLACEMENT/A DVANTAGE - PPO) [id number] Alisha Arguello [id number] Alisha Arguello Notes Date Note Type Note [...] stairs Alleviating factors: rest Modified [employer] [place] (mMRC) Dyspnea Scale - Grade 2 Grade [...] years in between) = 33 pack years [place]: no Dye: no Dust mites: yes Mold: no Damp basement: no Wood burning stove: no Animal dander: 3 dogs Cockroaches: no Pollen: yes Arsenic: no Asbestos: no Beryllium: no Cadmium: no Chromium: no Kidder smoke: no Diesel fumes: no Nickel: no [...] moderate chance of dozing. Eduardo Wilson MD [address] [place] [address], [address], [place] [facility] 04/08/2023 11:14:40 06/10/2023 text/html Primary care/Ref erring [...] up stairsAlleviating factors: rest Modified [employer] [place] (mMRC) Dyspnea Scale - Grade 2Grade 0 [...] chance of dozing. Eduardo Wilson MD [address] [facility], [facility] [address], [place], [address], [facility] [employer] [facility] 06/10/2023 13:04:23 OBGyn Episode No OBEpisode recorded.
--- OUTSIDE RECORDS SUMMARY | 2024-06-21 16:53 | XMS_ITS | Encounter Summary ---
Author Organization [facility] Address [address] [place] [address] Phone Care Team Providers Care Sccm Administrator Name Role Phone Sarmad Bowden Primary Care Provider [phone] Cy Mckinnon DO Unavailable [phone] Mirna Rider MD Primary Care Provider [phone] Anitra Rothman MD Primary Care Provider [phone] Justen Milton MD Primary Care Provider [phone] Herve Wilson MD Primary Care Provider [phone] Encounter Details Date Type Department Care Team (Late st Contact Info) Description 06/18/2017 Orders Only [facility] ProviderRusty MD [address] [place] [address] Social History Tobacco Use Types Packs/Day Years Used Date Smoking Tobacco: Former Smokeless Tobacco: Never Comments:Smoking History Pac ks/day: 1 Packs Alcohol Use Standard Drinks/Week Comments No 0 (1 standard drink = 0.6 oz pur e alcohol) Comments Unknown Sex and Gender Information Value Date Recorded Sex Assigned at Not on file 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 Gender Identity Female 01/10/2021 2:50 PM CDT [...] on filedocumented in this encounter Care Teams Sccm Administrator Relationship Specialty Start Date End Date Faviola Bowden MD [address] [address] PCP - General 06/05/16 12/15/17 Mirna Rider MD [facility] [place] [address] PCP - General 12/16/17 04/23/19 Anitra Rothman MD [address] [place] [address] [place] [address] PCP - General 04/24/19 03/24/20 Justen Milton MD [address] [place] [address] PCP - General 03/25/20 10/07/23 Herve Wilson MD [address] [place] [address] PCP - General Family Medicine 10/08/23 Cy Mckinnon DO [address] [place] [address] Medical Oncologist/Tamale Machine Feeder Hematology and Oncology 10/05/17 documented as of this encounter
--- OUTSIDE RECORDS SUMMARY | 2024-06-21 16:53 | XMS_ITS | Clinical Summary ---
Author Organization [facility] Address [address] [place] [address] Care Team Providers Care Commodity Industry Analyst Name Role Phone Unavailable Primary Care Provider [...] 08/18/2020 Dexa Scan (General) 08/18/2020 Pneumococcal Vaccine: 50+ Ye ars (2 of 2 - PCV) 08/18/2020 03/18/2012 COVID-19 Vaccine ( - 2023-2 5 season) 2023 RSV Immunization or 60+ Years (1 - 1-dose 75+ series) 08/18/2030 Meningococcal B Vaccine Aged Out No l onger eligible based on patient's age to complete this topic Meningococcal Vaccine Aged Out No marci randy eligible based on patient's age to complete this topic RSV Immunizations Under 20 Months Aged Out No longer eligible based on patient's age to complete this topic Insurance MEDICARE
--- OUTSIDE RECORDS SUMMARY | 2024-06-21 16:53 | XMS_ITS | Referral Summary ---
Author Organization [facility] Address [address] [place] [address] Care Team Providers Care Beauty Specialist Name Role Phone Cy Mckinnon DO Unavailable Herve Wilson MD Primary Care Provider [phone] Allergies Active Allergy Reactions Criticality Noted Date [...] are complete. Avoid live-vaccines unless reviewed with snow fence erector first. Osteopenia 10/08/2023 Assessment & Plan (10/08/2023 11:08 AM CDT): On fosamax since 2020. Due for repeat DEXA. Will do at [facility]. 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 10/30/2021 Overview (10/30/2021): Added automatically from request for surgery [id number] Stress incontinence 07/04/2020 Overview (07/04/2020): Added automatically from request for surgery [id number] Primary nocturnal enuresis 07/04/2020 Overview (07/04/2020): Added automatically from request for surgery [id number] Dysphagia 03/27/2020 Overview (03/27/2020): Added automatically from request for surgery [id number] Special screening for malignant neoplasms, colon 03/27/2020 Overview (03/27/2020): Added automatically from request for surgery [id number] Anemia 02/22/2019 Overview (03/06/2024): Problems with anemia [...] on file 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 Gender Identity Female 01/10/2021 2:50 PM CDT Sexual Orientation Not on file 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 Not on file Not on file Not [...] on file Medical Devices Implanted Type Area A/C Tech Device Identifier Shelf Expiration Date Model / Serial / Lot Medtronic Neuro 3058 Interstim Ii 2inx1.7in 4 Electrode Formation Testing Operator Sacral Nerve - [id number] - [id number] Implanted:Qty: 1 on 07/23/2020 by Husam Morales MD at [facility] Neurostimulator Right: Buttocks Med[employer]onic Inc 07/03/2021 [id number] / [id number] / Description:Sub Q upper righ t buttocks [employer] [id number] Interstim 28cm Quadripolar Mri Risk Consulting Treasury Director Neurostimulator - Sn/A - [id number] Implanted:Qty: 1 on 07/23/2020 by Husam Morales MD at [facility] Neurostimulator Right: Lumbar-Sac ral Spine [employer]onic Inc 10/22/2021 [id number] / N/A / [id number] Description:Right Sacral-3 F oramin Medtronic Inc Generator Neurostimulator Bowel Bladder Recharge Free Interstim X 23920 - [id number] - [id number] Implanted:Qty: 1 on 12/02/2021 by Husam Morales MD at [facility] N/A: Buttocks Med[employer]onic Inc 04/21/2023 [id number] / [id number] 48H / Medtronic Inc Interstim 28cm Quadripolar Mri Risk Consulting Treasury Director Neurostimulator [id number] - [id number] Implanted:Qty: 1 on 12/02/2021 by Husam Morales MD at [facility] N/A: Sacrum Med[employer] Inc 02/12/2023 [id number] / / [id number] Procedures Procedure Name Priority Date/Time Associated Diagnosis Comments COLONOSCOPY 04/12/2020 8:43 AM FISH FLIPPER DEXA AXIAL SKELETON BONE DENSITY 1 OR MORE SITES Schedule Routine, Read Routine (OP Routine) 04/05/2020 10:47 AM FISH FLIPPER Encounter for screening for osteoporosis SCREENING MAMMOGRAM BILATERAL W CRISTOBAL Schedule Routine, Read Routine (OP Routine) 04/24/2019 11:01 AM FISH FLIPPER Encounter for screening mammogram for malignant neoplasm of breast from Last 3 Months or Most Recently Relevant to Health Maintenance Results * COLONOSCOPY (04/12/2020 8:43 AM FISH FLIPPER) Anatomical Region Laterality Modality Other Narrative Procedure Note Jeniffer Almaraz MD - 04/12/2020 8:43 AM CST [facility] Endoscopy Lab Patient Name: Alisha Arguello Procedure [...] 3 weeks. Procedure Code(s): --- Professional --- 77870, Colonoscopy, flexible; diagnostic, including collection of specimen(s) by brushing or washing,when performed (separate procedure) Diagnosis Code(s): --- Professional --- Z12.11, Encounter for screening for malignantneoplasm of colon K57.30, Diverticulosis of large intestine without perforation or abscess without bleeding CPT copyright 2019 [employer]. All rights reserved. The codes documented in this report are preliminary and upon deicer element winder machine reviewmay be revised to meet current compliance requirements. Naida Almaraz Jeniffer Almaraz M.D. 04/12/2020 9:44:11 AM This report has been electronically signed by the physician. Number of Addenda: 0 Note Initiated On: 04/12/2020 8:43 AM us Jeniffer Almaraz MD ENDOSCOPY PROCEDURES Final Result * Dexa Axial Skeleton Bone Density 1 or 2 Site (04/05/2020 10:47 AM FISH FLIPPER) Anatomical Region Laterality Modality Body N/A Other 04/05/2020 10:5 8 AM FISH FLIPPER Impressions 04/05/2020 10:59 AM FISH FLIPPER According to the World Health Organization criteria, [...] signed by: Marika Huerta 04/05/2020 10:59 AM FISH FLIPPER COMPLETION DATE: 04/05/2020 11:00 AM ORDERING HEALTHCARE PROVIDER: TERRELL HDZ STUDY DESCRIPTION: DEXA AXIAL SKELETON BONE DENSITY 1 OR MORE SITES CLINICAL INDICATIONS: Z13.820. COMPARISON: None TECHNIQUE: Dual x-ray absorptiometry (DEXA) was performed using [employer] system. GENERAL GUIDELINES: According to WHO guidelines, [...] or equal to 3%. Procedure Note Jeni Sherwood, - 04/05/2020 COMPLETION DATE: 04/05/2020 11:00 AM ORDERING HEALTHCARE PROVIDER: TERRELL HDZ STUDY DESCRIPTION: DEXA AXIAL SKELETON BONE DENSITY 1 OR MORE SITES CLINICAL INDICATIONS: Z13.820. COMPARISON: None TECHNIQUE: Dual x-ray absorptiometry (DEXA) was performed using [employer] system. GENERAL GUIDELINES: According to WHO guidelines, [...] by: Jeni Sherwood D.O. Terrell Hdz MD IM DXA PROCEDURES Final Resu lt * Screening Mammogram Bilateral W Cristobal (04/24/2019 11:01 AM FISH FLIPPER) Anatomical Region Laterality Modality Breast Bilateral Mammography Narrative 04/25/2019 2:48 PM FISH FLIPPER Mammogram Technique: Bilateral Digital Breast Tomosynthesis, Bilateral C-view 2D Screening mammogram. Views obtained: bilateral craniocaudal and bilateral mediolateral oblique. Computer Aided Detection was performed. Mammogram Findings: The present examination has been compared to prior imaging studies performed at [facility] on 11/21/2014, 11/27/2015 and 12/09/2016. [...] compared to prior imaging studies performed at [facility] on 11/21/2014, 11/27/2015 and 12/09/2016. There are scattered areas of fibroglandular density. There is no suspicious abnormality in either breast. Impression: Annual screening mammography is recommended. OVERALL FINAL ASSESSMENT: BI-RADS CATEGORY 1: Negative. us Self Screening Mammogram IMG MAMMO PROCEDURES Fi nal Result from Last 3 Months or Most Recently Relevant to Health Maintenance Insurance [facility] AETNA MEDICARE GOLD AETNA MEDICARE GOLD [facility] MEDICARE ADVANTAGE Advance Directives For more information, please contact: [phone] * Full Code (Latest Code Status on File) Date Activated Date Inactivated Comments 04/12/2020 8:25 AM 04/12/2020 4:12 PM Care Teams Beauty Specialist Relationship Specialty Start Date End Date Herve Wilson MD [address] [place] [address] PCP - General Family Medicine 10/08/23 Cy Mckinnon DO [address] [place] [address] Medical Oncologist/Dishwashing Machine Repairer Hematology and Oncology 10/05/17
--- OUTSIDE RECORDS SUMMARY | 2024-06-21 16:53 | XMS_ITS | Clinical Summary ---
Author Organization [facility] Address [address] [place] [address] Care Team Providers Care Hospital Cleaning Specialist Name Role Phone Cy Mckinnon DO Unavailable [phone] Herve Wilson MD Primary Care Provider [phone] Allergies Active Allergy Reactions Criticality Noted Date [...] are complete. Avoid live-vaccines unless reviewed with registered nurse nursery first. Osteopenia 10/08/2023 Assessment & Plan (10/08/2023 11:08 AM CDT): On fosamax since 2020. Due for repeat DEXA. Will do at [facility]. You need 1200mg calcium daily [...] (10/30/2021): Added automatically from request for surgery [id number] Mechanical complication of e lectrode lead of implanted electronic neurostimulator of peripheral nerve 10/30/2021 Overview (10/30/2021): Added automatically from request for surgery [id number] Stress incontinence 07/04/2020 Overview (07/04/2020): Added automatically from request for surgery [id number] Primary nocturnal enuresis 07/04/2020 Overview (07/04/2020): Added automatically from request for surgery [id number] Dysphagia 03/27/2020 Overview (03/27/2020): Added automatically from request for surgery [id number] Special screening for malignant neoplasms, colon 03/27/2020 Overview (03/27/2020): Added automatically from request for surgery [id number] Anemia 02/22/2019 Overview (03/06/2024): Problems with anemia [...] Dive rticulitis Bipolar I disorder ([facility]) 06/14/2012 Bipolar 1 disorder Rheumatoid arthritis (HCC) Hypothyroidism Hyperlipidemia HTN (hypertension) GERD (gastroesophageal reflux disease) Esophageal stenosis Osteoporosis Neuropathy Heart valve regurgitation CHF (congestive heart failure) (HCC) history Bipolar 1 disorder (HCC) Hiatal hernia Peptic ulcer disease Family History Medical History Relation Name Comments Colon cancer Father 2 Cancer -colon; Cause of : Cancer -colon Heart attack Maternal Grandmother 2 SC; C ause of : SC COPD Mother 2 COPD; Cause of : [...] on file Legal Sex Female 9:08 AM THERMOSPRAY OPERATOR Gender Identity Female 01/10/2021 2:50 PM CDT Sexual Orientation Not on file 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 Not on file Not on file Not [...] Fall Risk Assessment 12/02/2022 12/02/2021 Influenza Vaccine (Season Ended) 2024 01/16/2022, 01/17/2021, 01/05/2020, Additional history exists Pneumococcal vaccine 65+ (3 of 3 - PCV20 or PCV21) 01/16/2027 01/16/2022, 03/18/2012 Colon Cancer Screening-Colonoscopy 04/12/2030 04/12/2020 Zoster Vaccine Completed 03/24/2020, 01/05/2020 Colon Cancer Screening-CT Colonography Discontinued 04/12/2020 Colon Cancer Screening-DNA Stool Discontinued 04/12/19 Colon Cancer Screening-FIT Discontinued 04/12/2020 Colon Cancer Screening-Sigmoidoscopy Discontinued 04/12/2020 Medical Devices Implanted Type Area Photographic Colorist Device Identifier Shelf Expiration Date Model / Serial / Lot Medtronic Neuro 3058 Interstim Ii 2inx1.7in 4 Electrode Planishing Hammer Operator Sacral Nerve - [id number] - [id number] Implanted:Qty: 1 on 07/23/2020 by Husam Morales MD at [facility] Neurostimulator Right: Buttocks Medtronic Inc 07/03/2021 3058 / [id number] / Description:Sub Q upper righ t buttocks [employer] [id number] Interstim 28cm Quadripolar Mri Shipping And Receiving Neurostimulator - Sn/A - [id number] Implanted:Qty: 1 on 07/23/2020 by Husam Morales MD at [facility] Neurostimulator Right: Lumbar-Sac ral Spine Medtronic Inc 10/22/2021 [id number] / N/A / [id number] Description:Right Sacral-3 F oramin Medtronic Inc Generator Neurostimulator Bowel Bladder Recharge Free Interstim X [id number] - [id number] - [id number] Implanted:Qty: 1 on 12/02/2021 by Husam Morales MD at [facility] N/A: Buttocks Medtronic Inc 04/21/2023 [id number] / [id number] 48H / Medtronic Inc Interstim 28cm Quadripolar Mri Shipping And Receiving Neurostimulator [id number] - [id number] Implanted:Qty: 1 on 12/02/2021 by Husam Morales MD at [facility] N/A: Sacrum Medtronic Inc 02/12/2023 [id number] / / [id number] Procedures Procedure Name Priority Date/Time Associated Diagnosis Comments COLONOSCOPY 04/12/2020 8:43 AM THERMOSPRAY OPERATOR DEXA AXIAL SKELETON BONE DENSITY 1 OR MORE SITES Schedule Routine, Read Routine (OP Routine) 04/05/2020 10:47 AM THERMOSPRAY OPERATOR Encounter for screening for osteoporosis SCREENING MAMMOGRAM BILATERAL W CRISTOBAL Schedule Routine, Read Routine (OP Routine) 04/24/2019 11:01 AM THERMOSPRAY OPERATOR Encounter for screening mammogram for malignant neoplasm of breast from Last 3 Months or Most Recently Relevant to Health Maintenance Results * COLONOSCOPY (04/12/2020 8:43 AM THERMOSPRAY OPERATOR) Anatomical Region Laterality Modality Other Narrative Procedure Note Jeniffer Almaraz MD - 04/12/2020 8:43 AM CST [facility] Endoscopy [facility] Patient Name: Alisha Arguello [...] 3 weeks. Procedure Code(s): --- Professional --- 40046, Colonoscopy, flexible; diagnostic, including collection of specimen(s) by brushing or washing,when performed (separate procedure) Diagnosis Code(s): --- Professional --- Z12.11, Encounter for screening for malignantneoplasm of colon K57.30, Diverticulosis of large intestine without perforation or abscess without bleeding CPT copyright 2019 [employer]. All rights reserved. The codes [...] 1 or 2 Site (04/05/2020 10:47 AM THERMOSPRAY OPERATOR) Anatomical Region Laterality Modality Body N/A Other 04/05/2020 10:5 8 AM THERMOSPRAY OPERATOR Impressions 04/05/2020 10:59 AM THERMOSPRAY OPERATOR According to the World Health Organization [...] signed by: Marika Huerta 04/05/2020 10:59 AM THERMOSPRAY OPERATOR COMPLETION DATE: 04/05/2020 11:00 AM ORDERING [...] Dual x-ray absorptiometry (DEXA) was performed using Safe Bulkers system. GENERAL GUIDELINES: According to WHO guidelines, [...] by: Jeni Sherwood D.O. Terrell Hdz MD [facility]ED[place] Final Resu lt * Screening Mammogram Bilateral W Cristobal (04/24/2019 11:01 AM THERMOSPRAY OPERATOR) Anatomical Region Laterality Modality Breast Bilateral Mammography Narrative 04/25/2019 2:48 PM THERMOSPRAY OPERATOR Mammogram Technique: Bilateral Digital Breast Tomosynthesis, Bilateral C-view 2D Screening mammogram. Views obtained: bilateral craniocaudal and bilateral mediolateral oblique. Computer Aided Detection was performed. Mammogram Findings: The present examination has been compared to prior imaging studies performed at [facility] on 11/21/2014, 11/27/2015 and 12/09/2016. There [...] compared to prior imaging studies performed at [facility] on 11/21/2014, 11/27/2015 and 12/09/2016. There are scattered areas of fibroglandular density. There is no suspicious abnormality in either breast. Impression: Annual screening mammography is recommended. OVERALL FINAL ASSESSMENT: BI-RADS CATEGORY 1: Negative. us Self Screening Mammogram IMG MAMMO PROCEDURES Fi nal Result from Last 3 Months or Most Recently Relevant to Health Maintenance Insurance [facility] AETNA MEDICARE GOLD AETNA MEDICARE GOLD UHC MEDICARE ADVANTAGE Advance Directives For more information, please contact: [phone] * Full Code (Latest Code Status on File) Date Activated Date Inactivated Comments 04/12/2020 8:25 AM 04/12/2020 4:12 PM Care Teams Hospital Cleaning Specialist Relationship Specialty Start Date End Date Herve Wilson MD [address] [place] [address] PCP - General Family Medicine 10/08/23 Cy Mckinnon DO [address] [place] [address] Medical Oncologist/Wash House Supervisor Hematology and Oncology 10/05/17
--- OUTSIDE RECORDS SUMMARY | 2024-06-21 16:54 | XMS_ITS | Patient Health Record ---
Author Organization [facility] As [facility] Address [address] [facility] [address] [place] [address] Care Team Providers Care Billing Auditor Name Role Phone Herve Wilson MD Primary Care Provider UnavailErnestina No Unavailable [phone] Migration, Provider Unavailable Unavailable Allergies Allergen (clinical drug ingredient) Drug/Non Drug Allergy documented on EMR Reaction Allergy Type Onset Date Status montelukast Singulair Unknown Drug Allergy 05/28/2023 Acti ve Reason For Referral No Information Medications Medication SIG (Take, Route, Frequency, Duration) Notes Start Date End Date Status predniSONE 5 MG Oral 05/28/2023 Unk nown Alendronate Sodium 70 MG Oral 05/28/2023 Unknown Acetaminophen-Codeine #3 300-30 MG Oral 05/28/2023 Unknown ProAir HFA 108 (90 Base) MCG/ACT Inhalation 05/28/2023 Unknown Atorvastatin Calcium 20 MG Oral 05/28/2023 Unknown amLODIPine Besylate 5 MG Oral 05/28/2023 Unknown Omeprazole 40 MG Oral 05/28/2023 Un known Metoprolol Tartrate 25 MG Oral 05/28/2023 Unknown Trelegy Ellipta 100-62.5-25 mcg Inhalation *Pick strength-form from [facility] for eRX* 05/28/2023 Unknown Levothyroxine Sodium 175 MCG Oral 05/28/2023 Unknown Meloxicam 15 MG Oral 05/28/2023 Unk nown buPROPion HCl ER (SR) 200 MG 1 TABLET Oral twice a day for 90 days Active Topiramate 100 MG 1 tablet Oral three times daily for 90 days Active DULoxetine HCl 60 MG 1 capsule Oral Once a day for 90 days Active rOPINIRole HCl 1 MG 1 tablet Oral Once a day for 90 days Active Citalopram Hydrobromide 20 MG 1 tablet Oral Once a day for 90 days Active risperiDONE 1 MG 1 tablet every night Oral Once a day for 90 days Active Social History Tobacco Use: Social History Observation Description Date Details (start date - stop date) Current Smoker NA - NA Sex Assigned At : Social History Observation Description Sex Assigned At Female Tobacco Control (Standard) Question Answer Notes Tobacco use: Current every day smoker Problems Problem Type SNOMED Code ICD Code Onset Dates Problem Status W/U Status Risk Notes Problem Bipolar II disorder (92952697) Bipolar II disorder (F31.81) Active confirmed Problem Restless legs syndrome (05928609) Restless legs syndrome (G25.81) Active confirmed Vital Signs Heart Rate 49 /min 05/12/2024 Height-cm 160.02 cm 05/12/2024 Blood pressure diastolic 78 mm Hg 05/12/2024 Weight-kg 117.94 kg 05/12/2024 Height 63.00 in 05/12/2024 Blood pressure systolic 143 mm Hg 05/12/2024 Weight 260 lbs 05/12/2024 BMI 46.05 kg/m2 05/12/2024 Encounters Encounter Location Date Provider Diagnosis [facility] [place] [id number] [address] 09/24/2023 Ernestina Anisa Bipolar II disorder F31.81 and Restless legs syndrome G25.81 [facility] [place] [address] [facility] [address] [address] 02/11/2024 Ernestina Anisa Bipolar II disorder F31.81 ; Restless legs syndrome G25.81 and Other exterminator termite (current) drug therapy Z79.899 [facility] [address] [address] [address] 05/12/2024 Ernestina Anisa Bipolar II disorder F31.81 ; Restless legs syndrome G25.81 and Other jail (current) drug therapy Z79.899 [facility] [place] [address] [facility] [address] [place] [address] 07/24/2023 Provider Migration [facility] [place] [address] [facility] [address] [place] [address] 07/25/2023 Provider Migration Assessments Encounter Date Diagnosis (ICD Code) Assessment Notes Treatment Notes Treatment Clinical Notes Section Notes 09/24/2023 Bipolar II disorder (ICD-10 - F31.81) 09/24/2023 Restless legs syndrome (ICD-10 - G25.81) 02/11/2024 Bipolar II disorder (ICD-10 - F31.81) SSRI/SNRI side effects discussed including but not limited to, gastric upset, nausea, vomiting, diarrhea and/or constipation, weight changes, sexual side effects including loss of libido, increased suicidal thoughts/behavior s in children and young adults, and serotonin syndrome. Second generation antipsychotics (SGAs) have metabolic syndrome issues with weight gain, increase in prolactin, increased waist circumference, increased lipids, and increased glucose. Thus routine monitoring of weight, metabolic labs, etc. is indicated. A general rank ordering of antipsychotics that have the greatest to the least risk of metabolic effects is olanzapine, quetiapine, risperidone, ziprasidone, and aripiprazole. However, weight gain can occur with all of these drugs and considerable variability exists among patients receiving the same drug regarding the risk of metabolic effects. Anti-psychotic agents not only increase the risk of metabolic disorder, they also increase the risk of CVA, akathisia, and movement disorders including EPS or tardive dyskinesia (more common with first generation antipsychotics) and more. Common side effects of Wellbutrin include insomnia, increased anxiety, nausea, dizziness, decreased appetite, restlessness, irritability and anger, increased sweating or hot flashes, tremors, joint pain. Wellbutrin is not recommended in individuals with a history of seizures. If side effects persist, please contact the office. 1. bipolar 2 disorder stable; reporting seasonal depression, declines medication adjustment -cont duloxetine 60mg qd -cont wellbutrin 200mg bid -cont topamax 100mg TID -cont citalopram 20mg daily -cont risperidone 1mg qd ---consider medication decrease after winter season to eliminate polypharmacy as able 2. RLS stable -cont ropinirole LABS ORDERED TODAY 05/12/2024 Bipolar II disorder (ICD-10 - F31.81) SSRI/SNRI side effects discussed including but not limited to, gastric upset, nausea, vomiting, diarrhea and/or constipation, weight changes, sexual side effects including loss of libido, increased suicidal thoughts/behavior s in children and young adults, and serotonin syndrome. Second generation antipsychotics (SGAs) have metabolic syndrome issues with weight gain, increase in prolactin, increased waist circumference, increased lipids, and increased glucose. Thus routine monitoring of weight, metabolic labs, etc. is indicated. A general rank ordering of antipsychotics that have the greatest to the least risk of metabolic effects is olanzapine, quetiapine, risperidone, ziprasidone, and aripiprazole. However, weight gain can occur with all of these drugs and considerable variability exists among patients receiving the same drug regarding the risk of metabolic effects. Anti-psychotic agents not only increase the risk of metabolic disorder, they also increase the risk of CVA, akathisia, and movement disorders including EPS or tardive dyskinesia (more common with first generation antipsychotics) and more. Common side effects of Wellbutrin include insomnia, increased anxiety, nausea, dizziness, decreased appetite, restlessness, irritability and anger, increased sweating or hot flashes, tremors, joint pain. Wellbutrin is not recommended in individuals with a history of seizures. If side effects persist, please contact the office. LABS ORDERED LAST APT, ENCOURAGED TO COMPLETE 05/12/2024 Restless legs syndrome (ICD-10 - G25.81) LABS ORDERED LAST APT, ENCOURAGED TO COMPLETE 02/11/2024 Restless legs syndrome (ICD-10 - G25.81) 1. bipolar 2 disorder stable; reporting seasonal depression, declines medication adjustment -cont duloxetine 60mg qd -cont wellbutrin 200mg bid -cont topamax 100mg TID -cont citalopram 20mg daily -cont risperidone 1mg qd ---consider medication decrease after winter season to eliminate polypharmacy as able 2. RLS stable -cont ropinirole LABS ORDERED TODAY 02/11/2024 Other exterminator termite (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 bipolar 2 disorder stable; reporting seasonal depression, declines medication adjustment -cont duloxetine 60mg qd -cont wellbutrin 200mg bid -cont topamax 100mg TID -cont citalopram 20mg daily -cont risperidone 1mg qd ---consider medication decrease after winter season to eliminate polypharmacy as able 2. RLS stable -cont ropinirole LABS ORDERED TODAY 05/12/2024 Other exterminator termite (current) drug therapy (ICD-10 - Z79.899) LABS ORDERED LAST APT, ENCOURAGED TO COMPLETE 09/24/2023 Other Stable, continue current medications. Refills sent in today. Patient educated on all medications including potential benefits, side effects, risks. Educated on proper dosing schedule and importance of compliance. 05/12/2024 Other Stable, cont current medications. Refills sent in today. Patient educated on all medications including potential benefits, side effects, risks. Educated on proper dosing schedule and importance of compliance. Encouraged to complete labs -Assessment and treatment plan reviewed with patient. -Compliance with treatment plan importance discussed. -Discussed the risks/benefits of this medication -Discussed medication side effects. -Contact office if symptoms worsen. -Discussed that it can take up to 6-8 weeks to see full therapeutic effects of psychotropic medications. -Crisis prevention hotline 988. LABS ORDERED LAST APT, ENCOURAGED TO COMPLETE Plan Of Treatment Pending Test Test Name Order Date LIPID PANEL, STANDARD (7600) 02/11/2024 COMPREHENSIVE METABOLIC PANEL (34857) CBC (H/H, RBC, INDICES, WBC, PLT) (1759) 02/11/2024 HEMOGLOBIN A1c (496) 02/11/2024 VITAMIN B12/FOLATE, SERUM PANEL (7065) 1 04/13/2023 VITAMIN D,25-OH,TOTAL,IA (73805) 024 Next Appt Details Provider Name:Ernestina Lange, 08/18/2024 11:00:00 AM, [address], [place], [address], Insurance Providers Payer Name Payer Address Payer Phone Subscriber Number Group Number Insured Name Patient Relationship to Insured Coverage Start Date Coverage End Date [facility] Medicare Replacement/ Advantage - Ppo [address] [address] [place] [address] [id number] TISHA FLEMING Self - patient is the insured Medical (General) History Medical History History ICD Code Problems: Bipolar II disorder Restless legs , Surgical History Surgery Date(Month/Year) Any surgical history Tonsilectomy/adenoids 03/08/1974 Hysterectomy (04272) 03/08/1988
--- OUTSIDE RECORDS SUMMARY | 2024-06-21 16:54 | XMS_ITS | Continuity of Care Document ---
Author Organization [facility] Address [address] [place] [address] Phone Care Team Providers Care Sole Polisher Name Role Phone Harris OD, Jeremias Unavailable [...] Diagnoses Date Provider Providers Copied on Encounter [facility], [address], [place], [place], [address], [place] tel:[phone] SEC [facility] No Information 0-201 0 Harris OD Jeremias. [address], [place], [address], [place]. tel:[phone] [facility], [address] [place] [address] [address], [place], [place], [address], [place] tel:[phone] SEC [facility] No Information Mar-2 5-200 9 Harris OD Jeremias. [facility] [address] , [address], [place], [place], [facility], [place]. tel:[phone] Office/outpat ient Visit, Est [facility], [address] [place] [address] [address], [place], [place], [address], [place] tel:[phone] SEC [facility] No Information Sep-1 0-200 8 Harris OD Jeremias. [address] , [address], [place], [place], [facility], [place]. tel:[phone] [facility], [address] [place] [address] [address], [place], [place], [address], [place] tel:[phone] SEC [facility] No Information Mar-1 9-200 8 Harris OD Jeremias. [facility] [address] , [address], [place], [facility], [place]. tel:[phone] Referring Provider: Rajan Holman, [address] [place], [place] [address], [place], [facility]. tel:[phone] [facility], [address] [place] [address] [address], [place], [place], [address], [place] tel:[phone] SEC [facility] No Information Mar-0 5-200 8 Candelaria Tolentino. [facility] [address] , [address], [place], [address], [place]. tel:[phone] [facility], [address] [place] [address] [address], [place], [place], [address], [place] tel:[phone] [facility] No Information Mar-0 4-200 8 Candelaria Tolentino. [address] [place], [place] [address] , [address], [place], [facility], [place]. tel:[phone] [facility], [address], [place], [place], [address], [place] tel:[phone] SEC [facility] [place] No Information 8 Candelaria Tolentino. [address] [place], [place] [address] , [address], [place], [facility], [place]. tel:[phone] Referring Provider: Rajan Holman, [facility] [address], [place], [facility]. tel:[phone] [facility], [address], [place], [place], [address], [place] tel:[phone] SEC [facility] [place] No Information 6[address] Candelaria Tolentino. [address] [place], [place] [address] , [address], [place], [facility], [place]. tel:[phone] Referring Provider: Jeremias Holman, [facility] [address], [place], [facility]. tel:[phone] [facility], [address], [place], [place], [address], [place] tel:[phone] SEC [facility] No Information 8-200 7 Harris OD Jeremias. [address] [place], [place] [address]ate Rei Alexis, [address], [place], [facility], [place]. tel:[phone] Referring Provider: Rajan Holman, [facility] [address], [place], [facility]. tel:[phone] [facility], [address], [place], [place], [address], [place] tel:[phone] [facility] No Information 7[address] Candelaria Tolentino. [facility] [address] [address], [address], [place], [facility], [place]. tel:[phone] Referring Provider: Jeremias Harris OD River, [address] [place] [address] [address], [place], [address]. tel:[phone] [facility], [address] [place] [address] [address], [place], [place], [address], tel:[phone] SEC [facility] No Information 0 9-200 7 Doisy Edward. [address] [place] [address] , [address], [place], [address], . tel:[phone] Referring Provider: Jeremias Holman, [address] [place] [address] [address], [place], [address]. tel:[phone] [facility], [address] [place] [address] [address], [place], [place], [address], tel:[phone] SEC [facility] No Information 3-200 7 Harris OD Jeremias. [address] [place] [address] , [address], [place], [address], [place]. tel:[phone] Family History Family Member Type Diagnosis Age At Onset No Information Payers Payer name Insurance type Covered republican ID Authoriza tirocio(s) [place] [id number] Social History Type Description Quantity Date Captured [...]
[2024-06-21 18:13] LABS: CRP 20.2 mg/dL (<1.0)
--- OUTSIDE RECORDS SUMMARY | 2024-06-21 18:39 | XMS_ITS | Encounter Summary ---
Author Organization [facility] Address [address] [place] [address] Phone Care Team Providers Care [facility] Clergy Name Role Phone Sarmad Bowden Primary Care Provider [phone] Cy Mckinnon DO Unavailable [phone] Mirna Rider MD Primary Care Provider [phone] Anitra Rothman MD Primary Care Provider [phone] Justen Milton MD Primary Care Provider [phone] Herve Wilson MD Primary Care Provider [phone] Encounter Details Date Type Department Care Team (Late st Contact Info) Description 06/18/2017 Orders Only [facility] ProviderRusty MD [address] [place] [address] Social History Tobacco Use Types Packs/Day Years Used Date Smoking Tobacco: Former Smokeless Tobacco: Never Comments:Smoking History Pac ks/day: 1 Packs Alcohol Use Standard Drinks/Week Comments No 0 (1 standard drink = 0.6 oz pur e alcohol) Comments Unknown Sex and Gender Information Value Date Recorded Sex Assigned at Not on file Legal 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 Female 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 Gender Identity Female 01/10/2021 2:50 PM CDT [...] on filedocumented in this encounter Care Teams Presbyterian Clergy Relationship Specialty Start Date End Date Faviola Bowden MD [address] [address] PCP - General 06/05/16 12/15/17 Mirna Rider MD [facility] [place] [address] PCP - General 12/16/17 04/23/19 Anitra Rothman MD [address] [place] [address] [place] [address] PCP - General 04/24/19 03/24/20 Justen Milton MD [address] [place] [address] PCP - General 03/25/20 10/07/23 Herve Wilson MD [address] [place] [address] PCP - General Family Medicine 10/08/23 Cy Mckinnon DO [address] [place] [address] Medical Oncologist/House Father Hematology and Oncology 10/05/17 documented as of this encounter
--- OUTSIDE RECORDS SUMMARY | 2024-06-21 18:39 | XMS_ITS | Clinical Summary ---
Author Organization [facility] Address [address] [place] [address] Care Team Providers Care Making Line Worker Name Role Phone Cy Mckinnon DO Unavailable [phone] Herve Wilson MD Primary Care Provider [phone] Allergies Active Allergy Reactions Criticality Noted Date [...] are complete. Avoid live-vaccines unless reviewed with contract lead first. Osteopenia 10/08/2023 Assessment & Plan (10/08/2023 11:08 AM CDT): On fosamax since 2020. Due for repeat DEXA. Will do at [facility]. You need 1200mg calcium daily between [...] (10/30/2021): Added automatically from request for surgery [id number] Mechanical complication of e lectrode lead of implanted electronic neurostimulator of peripheral nerve 10/30/2021 Overview (10/30/2021): Added automatically from request for surgery [id number] Stress incontinence 07/04/2020 Overview (07/04/2020): Added automatically from request for surgery [id number] Primary nocturnal enuresis 07/04/2020 Overview (07/04/2020): Added automatically from request for surgery [id number] Dysphagia 03/27/2020 Overview (03/27/2020): Added automatically from request for surgery [id number] Special screening for malignant neoplasms, colon 03/27/2020 Overview (03/27/2020): Added automatically from request for surgery [id number] Anemia 02/22/2019 Overview (03/06/2024): Problems with anemia [...] Dive rticulitis Bipolar I disorder ([facility]) 06/14/2012 Bipolar 1 disorder Rheumatoid arthritis (HCC) Hypothyroidism Hyperlipidemia HTN (hypertension) GERD (gastroesophageal reflux disease) Esophageal stenosis Osteoporosis Neuropathy Heart valve regurgitation CHF (congestive heart failure) (HCC) history Bipolar 1 disorder (HCC) Hiatal hernia Peptic ulcer disease Family History Medical History Relation Name Comments Colon cancer Father 2 Cancer -colon; Cause of : Cancer -colon Heart attack Maternal Grandmother 2 MA; C ause of : MA COPD Mother 2 COPD; Cause of : [...] on file Legal Sex Female 9:08 AM ZIGZAG APPLIQUER Gender Identity Female 01/10/2021 2:50 PM CDT Sexual Orientation Not on file 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 Not on file Not [...] Discontinued 04/12/2020 Medical Devices Implanted Type Area Ingredient Mixer Device Identifier Shelf Expiration Date Model / Serial / Lot Medtronic Neuro 3058 Interstim Ii 2inx1.7in 4 Electrode Procurement Analyst Sacral Nerve - [id number] - [id number] Implanted:Qty: 1 on 07/23/2020 by Husam Morales MD at [facility] Neurostimulator Right: Buttocks Medtronic Inc 07/03/2021 3058 / [id number] 11H / Description:Sub Q upper righ t buttocks [employer] Inc [id number] Interstim 28cm Quadripolar Mri Tongue Binder Neurostimulator - Sn/A - [id number] Implanted:Qty: 1 on 07/23/2020 by Husam Morales MD at [facility] Neurostimulator Right: Lumbar-Sac ral Spine Medtronic Inc 10/22/2021 [id number] / N/A / [id number] Description:Right Sacral-3 F oramin Medtronic Inc Generator Neurostimulator Bowel Bladder Recharge Free Interstim X 79210 - [id number] - [id number] Implanted:Qty: 1 on 12/02/2021 by Husam Morales MD at [facility] N/A: Buttocks Medtronic Inc 04/21/2023 [id number] / [id number] 48H / Medtronic Inc Interstim 28cm Quadripolar Mri Tongue Binder Neurostimulator [id number] - [id number] Implanted:Qty: 1 on 12/02/2021 by Husam Morales MD at [facility] N/A: Sacrum Medtronic Inc 02/12/2023 [id number] / / [id number] Procedures Procedure Name Priority Date/Time Associated Diagnosis Comments COLONOSCOPY 04/12/2020 8:43 AM ZIGZAG APPLIQUER DEXA AXIAL SKELETON BONE DENSITY 1 OR MORE SITES Schedule Routine, Read Routine (OP Routine) 04/05/2020 10:47 AM ZIGZAG APPLIQUER Encounter for screening for osteoporosis SCREENING MAMMOGRAM BILATERAL W CRISTOBAL Schedule Routine, Read Routine (OP Routine) 04/24/2019 11:01 AM ZIGZAG APPLIQUER Encounter for screening mammogram for malignant neoplasm of breast from Last 3 Months or Most Recently Relevant to Health Maintenance Results * COLONOSCOPY (04/12/2020 8:43 AM ZIGZAG APPLIQUER) Anatomical Region Laterality Modality Other Narrative Procedure Note Jeniffer Almaraz MD - 04/12/2020 8:43 AM CST [facility] Endoscopy Lab Patient Name: Alisha [...] 3 weeks. Procedure Code(s): --- Professional --- 68478, Colonoscopy, flexible; diagnostic, including collection of specimen(s) by brushing or washing,when performed (separate procedure) Diagnosis Code(s): --- Professional --- Z12.11, Encounter for screening for malignantneoplasm of colon K57.30, Diverticulosis of large intestine without perforation or abscess without bleeding CPT copyright 2019 [employer]. All rights reserved. The codes documented in this report are preliminary and upon ladies underwear operator reviewmay be revised to meet current compliance requirements. Naida Almaraz Jeniffer Almaraz M.D. 04/12/2020 9:44:11 AM This report has been electronically signed by the physician. Number of Addenda: 0 Note Initiated On: 04/12/2020 8:43 AM Jeniffer Almaraz MD ENDOSCOPY PROCEDURES Final Result * Dexa Axial Skeleton Bone Density 1 or 2 Site (04/05/2020 10:47 AM ZIGZAG APPLIQUER) Anatomical Region Laterality Modality Body N/A Other 04/05/2020 10:5 8 AM ZIGZAG APPLIQUER Impressions 04/05/2020 10:59 AM ZIGZAG APPLIQUER According to the World Health Organization criteria, [...] signed by: Marika Huerta 04/05/2020 10:59 AM ZIGZAG APPLIQUER COMPLETION DATE: 04/05/2020 11:00 AM ORDERING HEALTHCARE [...] Dual x-ray absorptiometry (DEXA) was performed using Solaire Generation system. GENERAL GUIDELINES: According to WHO guidelines, [...] by: Jeni Sherwood D.O. Terrell Hdz MD [facility] DXA PROCEDURES Final Resu lt * Screening Mammogram Bilateral W Cristobal (04/24/2019 11:01 AM ZIGZAG APPLIQUER) Anatomical Region Laterality Modality Breast Bilateral Mammography Narrative 04/25/2019 2:48 PM ZIGZAG APPLIQUER Mammogram Technique: Bilateral Digital Breast Tomosynthesis, Bilateral C-view 2D Screening mammogram. Views obtained: bilateral craniocaudal and bilateral mediolateral oblique. Computer Aided Detection was performed. Mammogram Findings: The present examination has been compared to prior imaging studies performed at [facility] on 11/21/2014, 11/27/2015 and 12/09/2016. There are [...] compared to prior imaging studies performed at [facility] on 11/21/2014, 11/27/2015 and 12/09/2016. There are scattered areas of fibroglandular density. There is no suspicious abnormality in either breast. Impression: Annual screening mammography is recommended. OVERALL FINAL ASSESSMENT: BI-RADS CATEGORY 1: Negative. us Self Screening Mammogram IMG MAMMO PROCEDURES Fi nal Result from Last 3 Months or Most Recently Relevant to Health Maintenance Insurance [facility] AETNA MEDICARE GOLD AETNA MEDICARE GOLD UHC MEDICARE ADVANTAGE Advance Directives For more information, please contact: [phone] * Full Code (Latest Code Status on File) Date Activated Date Inactivated Comments 04/12/2020 8:25 AM 04/12/2020 4:12 PM Care Teams Making Line Worker Relationship Specialty Start Date End Date Herve Wilson MD [address] [place] [address] PCP - General Family Medicine 10/08/23 Cy Mckinnon DO [address] [place] [address] Medical Oncologist/Perinatology Physician Hematology and Oncology 10/05/17
--- OUTSIDE RECORDS SUMMARY | 2024-06-21 18:39 | XMS_ITS | Referral Summary ---
Author Organization [facility] Address [address] [place] [address] Care Team Providers Care Room Cooler Installer Name Role Phone Cy Mckinnon DO Unavailable [phone] Herve Wilson MD Primary Care Provider [phone] Allergies Active Allergy Reactions Criticality Noted Date [...] are complete. Avoid live-vaccines unless reviewed with student success advisor first. Osteopenia 10/08/2023 Assessment & Plan (10/08/2023 11:08 AM CDT): On fosamax since 2020. Due for repeat DEXA. Will do at [facility]. You need 1200mg calcium daily between [...] (10/30/2021): Added automatically from request for surgery [id number] Mechanical complication of e lectrode lead of implanted electronic neurostimulator of peripheral nerve 10/30/2021 Overview (10/30/2021): Added automatically from request for surgery [id number] Stress incontinence 07/04/2020 Overview (07/04/2020): Added automatically from request for surgery [id number] Primary nocturnal enuresis 07/04/2020 Overview (07/04/2020): Added automatically from request for surgery [id number] Dysphagia 03/27/2020 Overview (03/27/2020): Added automatically from request for surgery [id number] Special screening for malignant neoplasms, colon 03/27/2020 Overview (03/27/2020): Added automatically from request for surgery [id number] Anemia 02/22/2019 Overview (03/06/2024): Problems with anemia [...] on file Legal Sex Female 9:08 AM UPPER CASER Gender Identity Female 01/10/2021 2:50 PM CDT Sexual Orientation Not on file 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 Not [...] on file Medical Devices Implanted Type Area Civil Technician Device Identifier Shelf Expiration Date Model / Serial / Lot Medtronic Neuro 3058 Interstim Ii 2inx1.7in 4 Electrode Finishing Frame Runner Sacral Nerve - [id number] - [id number] Implanted:Qty: 1 on 07/23/2020 by Husam Morales MD at [facility] Neurostimulator Right: Buttocks Medtronic Inc 07/03/2021 3058 / [id number] 11H / Description:Sub Q upper righ t buttocks [employer] Inc [id number] Interstim 28cm Quadripolar Mri Sofa Cover Inspector Neurostimulator - Sn/A - [id number] Implanted:Qty: 1 on 07/23/2020 by Husam Morales MD at [facility] Neurostimulator Right: Lumbar-Sac ral Spine Medtronic Inc 10/22/2021 [id number] / N/A / [id number] Description:Right Sacral-3 F oramin Medtronic Inc Generator Neurostimulator Bowel Bladder Recharge Free Interstim X 54012 - [id number] - [id number] Implanted:Qty: 1 on 12/02/2021 by Husam Morales MD at [facility] N/A: Buttocks Medtronic Inc 04/21/2023 [id number] / [id number] 48H / Medtronic Inc Interstim 28cm Quadripolar Mri Sofa Cover Inspector Neurostimulator [id number] - [id number] Implanted:Qty: 1 on 12/02/2021 by Husam Morales MD at [facility] N/A: Sacrum Medtronic Inc 02/12/2023 [id number] / / [id number] Procedures Procedure Name Priority Date/Time Associated Diagnosis Comments COLONOSCOPY 04/12/2020 8:43 AM UPPER CASER DEXA AXIAL SKELETON BONE DENSITY 1 OR MORE SITES Schedule Routine, Read Routine (OP Routine) 04/05/2020 10:47 AM UPPER CASER Encounter for screening for osteoporosis SCREENING MAMMOGRAM BILATERAL W CRISTOBAL Schedule Routine, Read Routine (OP Routine) 04/24/2019 11:01 AM UPPER CASER Encounter for screening mammogram for malignant neoplasm of breast from Last 3 Months or Most Recently Relevant to Health Maintenance Results * COLONOSCOPY (04/12/2020 8:43 AM UPPER CASER) Anatomical Region Laterality Modality Other Narrative Procedure Note Jeniffer Almaraz MD - 04/12/2020 8:43 AM CST [facility] Endoscopy Lab Patient Name: Alisha Arguello [...] 3 weeks. Procedure Code(s): --- Professional --- 82426, Colonoscopy, flexible; diagnostic, including collection of specimen(s) by brushing or washing,when performed (separate procedure) Diagnosis Code(s): --- Professional --- Z12.11, Encounter for screening for malignantneoplasm of colon K57.30, Diverticulosis of large intestine without perforation or abscess without bleeding CPT copyright 2019 [employer]. All rights reserved. The codes documented in this report are preliminary and upon general technician reviewmay be revised to meet current compliance requirements. Naida Almaraz Jeniffer Almaraz M.D. 04/12/2020 9:44:11 AM This report has been electronically signed by the physician. Number of Addenda: 0 Note Initiated On: 04/12/2020 8:43 AM us Jeniffer Almaraz MD ENDOSCOPY PROCEDURES Final Result * Dexa Axial Skeleton Bone Density 1 or 2 Site (04/05/2020 10:47 AM UPPER CASER) Anatomical Region Laterality Modality Body N/A Other 04/05/2020 10:5 8 AM UPPER CASER Impressions 04/05/2020 10:59 AM UPPER CASER According to the World Health Organization criteria, [...] signed by: Marika Huerta 04/05/2020 10:59 AM UPPER CASER COMPLETION DATE: 04/05/2020 11:00 AM ORDERING HEALTHCARE PROVIDER: TERRELL HDZ STUDY DESCRIPTION: DEXA AXIAL SKELETON BONE DENSITY 1 OR MORE SITES CLINICAL INDICATIONS: Z13.820. COMPARISON: None TECHNIQUE: Dual x-ray absorptiometry (DEXA) was performed using Conexus-IT system. GENERAL GUIDELINES: According to WHO guidelines, [...] Dual x-ray absorptiometry (DEXA) was performed using HoloAxialMED system. GENERAL GUIDELINES: According to WHO guidelines, [...] Mammogram Bilateral W Cristobal (04/24/2019 11:01 AM UPPER CASER) Anatomical Region Laterality Modality Breast Bilateral Mammography Narrative 04/25/2019 2:48 PM UPPER CASER Mammogram Technique: Bilateral Digital Breast Tomosynthesis, Bilateral C-view 2D Screening mammogram. Views obtained: bilateral craniocaudal and bilateral mediolateral oblique. Computer Aided Detection was performed. Mammogram Findings: The present examination has been compared to prior imaging studies performed at [facility] on 11/21/2014, 11/27/2015 and 12/09/2016. There [...] compared to prior imaging studies performed at [facility] on 11/21/2014, 11/27/2015 and 12/09/2016. There are scattered areas of fibroglandular density. There is no suspicious abnormality in either breast. Impression: Annual screening mammography is recommended. OVERALL FINAL ASSESSMENT: BI-RADS CATEGORY 1: Negative. us Self Screening Mammogram IMG MAMMO PROCEDURES Fi nal Result from Last 3 Months or Most Recently Relevant to Health Maintenance Insurance [facility] AETNA MEDICARE GOLD AETNA MEDICARE GOLD [facility] MEDICARE ADVANTAGE Advance Directives For more information, please contact: [phone] * Full Code (Latest Code Status on File) Date Activated Date Inactivated Comments 04/12/2020 8:25 AM 04/12/2020 4:12 PM Care Teams Room Cooler Installer Relationship Specialty Start Date End Date Herve Wilson MD [address] [place] [address] PCP - General Family Medicine 10/08/23 Cy Mckinnon DO [address] [place] [address] Medical Oncologist/Health And Nutrition Specialist Hematology and Oncology 10/05/17
--- OUTSIDE RECORDS SUMMARY | 2024-06-21 18:40 | XMS_ITS | Clinical Summary ---
Author Organization [facility] Address [address] [facility] [place] [address] Care Team Providers Care Sales Teacher Name Role Phone Unavailable Primary Care Provider Unavailabl e Source Comments [facility],non-owned Affiliates and Associated Physician Practices is amultiple site organization consisting of ambulatory clinics and hospital sitesin [place], [place], [place] and [place]. This disclosure is being madepursuant to the Care Everywhere program and may not contain all information available regarding this patient. Last updated 17.[employer] [facility] Allergies No known active allergies Medications * [...] on file Legal Sex Female 6:37 AM ENERGY AUDIT ADVISOR Gender Identity Not on file Sexual Orientation [...] Documents on File Type Date Recorded Patient Programmer Or Analyst Expl anation Adv Directive/Living Will/POA 06/20/2012 12:56 PM REC[facility]ERY [facility]
--- OUTSIDE RECORDS SUMMARY | 2024-06-21 18:40 | XMS_ITS | Continuity of Care Document ---
Author Organization [facility] Address [address] [place] [address] Phone Care Team Providers Care Executive Talent Acquisition Consultant Name Role Phone Harris OD, Jeremias Unavailable [...] Diagnoses Date Provider Providers Copied on Encounter [facility], [address], [place], [place], [address], [place] tel:[phone] [facility] No Information 0-201 0 Harris OD Jeremias. [address] , [address], [place], [address], [place]. tel:[phone] [facility], [address] [place] [address] [address], [place], [place], [address], [place] tel:[phone] SEC [facility] No Information Mar-2 5-200 9 Harris OD Jeremias. [facility] , [address], [place], [place], [facility], [place]. tel:[phone] Office/outpat ient Visit, Est [facility], [address] [place] [address] [address], [place], [place], [address], [place] tel:[phone] [facility] No Information Sep-1 0-200 8 Harris OD Jeremias. [address] [facility] , [address], [place], [place], [facility], [place]. tel:[phone] [facility], [address] [place] [address] [address], [place], [place], [address], [place] tel:[phone] [facility] No Information Mar-1 9-200 8 Harris OD Jeremias. [facility] , [address], [place], [facility], [place]. tel:[phone] Referring Provider: Rajan Holman, [address] [place], [place] [address]ate [address], [place], [place], [facility]. tel:[phone] [facility], [address] [place] [address] [address], [place], [place], [address], [place] tel:[phone] SEC [facility] No Information Mar-0 5-200 8 Candelaria Tolentino. [facility] , [address], [place], [address], [place]. tel:[phone] [facility], [address] [place] [address] [address], [place], [place], [address], [place] tel:[phone] [facility] No Information Mar-0 4-200 8 Candelaria Tolentino. [address] [place], [place] [address]ate Center , [address], [place], [facility], [place]. tel:[phone] [facility], [address], [place], [place], [address], [place] tel:[phone] SEC [facility] [place] No Information 8 Candelaria Tolentino. [address] [place], [place] [address]ate Center , [address], [place], [facility], [place]. tel:[phone] Referring Provider: Rajan Holman, [facility] [address], [place], [facility]. tel:[phone] [facility], [address], [place], [place], [address], [place] tel:[phone] [facility] [place] No Information 6[address] Cand[address] Tolentino. [address] [place], [place] [address]ate Center , [address], [place], [facility], [place]. tel:[phone] Referring Provider: Jeremias Holman, [facility] [address], [place], [facility]. tel:[phone] [facility], [address], [place], [place], [address], [place] tel:[phone] [facility] No Information 8-200 7 Harris OD Jeremias. [address] [place], [place] [address]ate Rei Alexis, [address], [place], [facility], [place]. tel:[phone] Referring Provider: Rajan Holman, [facility] [address], [place], [facility]. tel:[phone] [facility], [address], [place], [place], [address], [place] tel:[phone] [facility] No Information 7[address] 7 [address] Tolentino. [facility] Alexis, [address], [place], [facility], [place]. tel:[phone] Referring Provider: Jeremias Harris OD River, [address] [place] [address] [address], [place], [address]. tel:[phone] [facility], [address] [place] [address] [address], [place], [place], [address], tel:[phone] [facility] No Information 0 9-200 7 Doisy Edward. [address] [place] [address] , [address], [place], [address], . tel:[phone] Referring Provider: Jeremias Holman, [address] [place] [address] [address], [place], [address]. tel:[phone] [facility], [address] [place] [address] [address], [place], [place], [address], tel:[phone] [facility] No Information 3-200 7 Harris OD Jeremias. [address] [place] [address] , [address], [place], [address], [place]. tel:[phone] Family History Family Member Type Diagnosis Age At Onset No Information Payers Payer name Insurance type Covered constitution party ID Authoriza tirocio(s) [place] [id number] Social History Type Description Quantity Date Captured [...]
--- OUTSIDE RECORDS SUMMARY | 2024-06-21 18:40 | XMS_ITS | CONTINUITY OF CARE DOCUMENT ---
Author Name makayla, makayla Address Unknown Organization [facility] Address [address] [place] [address] Phone [phone] Care Team Providers Care Mixed [employer] Worker Name Role Phone Michael Garcia MD Unavailable Michael Garcia MD Unavailable SANTOS SORIA MD Unavailable [phone] PROBLEMS Condition Status Date Provider Notes Elevated [...] Hernandez NP Hypertension active Renae Hernandez NP Atrial fibrillation, paroxysmal, chronic active 06/09 Michael Garcia MD Chest pain active Michael Garcia MD ENCOUNTERS Date Type Provider Location Encounter Diag nosis - In-person encounter Office Visit Michael Garcia MD [facility] Atrial fibrillation, paroxysmal, chronicChest pain - In-person encounter Office Visit Michael Garcia MD [facility] Aortic insufficiencyHypertension - In-person encounter Office Visit Michael Garcia MD [facility] Cardiology examinationCADCHF - In-person encounter Office Visit NELY BOWDEN MD [facility] - In-person encounter Office Visit NELY BOWDEN MD [facility] - In-person encounter Office Visit NELY BOWDEN MD [facility] - In-person encounter Office Visit NELY BOWDEN MD [facility] - In-person encounter Office Visit NELY BOWDEN MD [facility] - In-person encounter Office Visit NELY BOWDEN MD [facility] - In-person encounter Office Visit NELY BOWDEN MD [facility] - In-person encounter Office Visit NELY BOWDEN MD [facility] - In-person encounter Office Visit NELY BOWDEN MD [facility] - In-person encounter Office Visit NELY BOWDEN MD [facility] - In-person encounter Office Visit NELY BOWDEN MD [facility] - In-person encounter Office Visit NELY BOWDEN MD [facility] - In-person encounter Office Visit NELY BOWDEN MD [facility] - In-person encounter Office Visit NELY BOWDEN MD [facility] - In-person encounter Office Visit NELY BOWDNE MD [facility] - In-person encounter Office Visit NELY BOWDEN MD [facility] - In-person encounter Office Visit NELY BOWDEN MD [facility] - In-person encounter Office Visit NELY BOWDEN MD [facility] - In-person encounter Office Visit NELY BOWDEN MD [facility] - In-person encounter Office Visit NELY BOWDEN MD [facility] - In-person encounter Office Visit NELY BOWDEN MD [facility] - In-person encounter Office Visit NELY BOWDEN MD [facility] - In-person encounter Office Visit Piyush Espinosa MD [facility] - In-person encounter Office Visit NELY BOWDEN MD [facility] - In-person encounter Office Visit NELY BOWDEN MD [facility] - In-person encounter Office Visit Piyush Espinosa MD [facility] - In-person encounter Office Visit NELY BOWDEN MD [facility] - In-person encounter Office Visit Piyush Espinosa MD [facility] Arthritis, rheumatoid, chronic - In-person encounter Office Visit NELY BOWDEN MD [facility] - In-person encounter Office Visit NELY BOWDEN MD [facility] - In-person encounter Office Visit NELY BOWDEN MD [facility] - In-person encounter Office Visit NELY BOWDEN MD [facility] - In-person encounter Office Visit Piyush Espinosa MD [facility] - In-person encounter Office Visit NELY BOWDEN MD [facility] - In-person encounter Office Visit NELY BOWDEN MD [facility] - In-person encounter Office Visit NELY BOWDEN MD [facility] - In-person encounter Office Visit Piyush Espinosa MD [facility] - In-person encounter Office Visit Piyush Espinosa MD [facility] - In-person encounter Office Visit Piyush Espinosa MD [facility] - In-person encounter Office Visit NELY BOWDEN MD [facility] - In-person encounter Office Visit Piyush Espinosa MD [facility] Anemia, iron deficiency - In-person encounter Office Visit NELY BOWDEN MD [facility] - In-person encounter Office Visit NELY BOWDEN MD [facility] - In-person encounter Office Visit NELY BOWDEN MD [facility] - In-person encounter Office Visit NELY BOWDEN MD [facility] - In-person encounter Office Visit Norma Arcos [facility] - In-person encounter Office Visit NELY BOWDEN MD [facility] DepressionUnspecified hypothyroidismOther and unspecified hyperlipidemiaAsthma, unspecifiedUrinary incontinenceUnilateral thyroid lobectomyAnemia, unspecified - In-person encounter Office Visit Norma Arcos [facility] - In-person encounter Office Visit Denetrist [facility] - In-person encounter Office Visit NELY BOWDEN MD [facility] - In-person encounter Office Visit Norma [facility] - In-person encounter Office Visit Norma [facility] - In-person encounter Office Visit Norma [facility] - In-person encounter Office Visit Norma [facility] - In-person encounter Office Visit Norma [facility] - In-person encounter Office Visit Norma [facility] - In-person encounter Office Visit Norma [facility] - In-person encounter Office Visit Norma [facility] - In-person encounter Office Visit Norma [facility] VITAL SIGNS Date Observation Value [...] lder oxygen saturation, oximetry 95 % Aditi Pteerjoseedjoy respiratory rate E&M 16 /min Aditi Poe [...] Flores RN blood pressure, diastolic 73 mm[Hg] Ks miriam Deon blood pressure, systolic 169 mm[Hg] [...] Not Estab. platelet count 230 X10E3/UL [facility] [phone]/03/ 21 red blood cell distribution width 16.0 [...] [facility] 0-149 cholesterol, serum 149 mg/dL [facility] [phone]/03/ 21 alanine aminotransferase (SGPT), serum 18 1/L [...] [facility] 3.5-5.2 sodium, serum 143 mmol/L [facility] [phone]/03/ 21 urea nitrogen/creatinine ratio, serum 16 [facility] [...] [facility] 59.0 - chloride, serum 104.9 [facility]/L [facility] 107.0 potassium, serum 4.2 mmol/L [facility] 3.5 - 5.1 sodium, serum 141.0 mmol/L [facility] 136.0 - 145.0 creatinine, serum 0.7 mg/dL [facility] 0.5 - 1.0 carbon dioxide, venous blood 22.0 mmol/L [facility] 23[facility] - 31.0 Low albumin, serum 4.2 g/dL [facility] 3.5 - 5.2 calcium, serum 9.1 mg/dL [facility] 8.6 - 10.2 aspartate aminotransferase (SGOT), serum 19.0 1/L [facility] 0.0 - 32.0 alkaline phosphatase, serum 84.0 1/L [facility] 40.0 - 130.0 alanine aminotransferase (SGPT), serum 18.0 1/L [facility] 0.0 - 33.0 protein, total, serum 6.6 g/dL [facility] 6.6 - 8.7 bilirubin, serum, total 0.3 mg/dL [facility] 0.0 - 1.2 urea nitrogen, blood 12.0 mg/dL [facility] 8.0 - 23.0 blood glucose, random 90.0 mg/dL [facility] 74.0 - 99.0 red blood cell distribution width, size density 57.3 fL [facility] - immature granulocytes, percentage of total cells, blood 0.6 % [facility] - nucleated red blood cells as percent of blood leukocytes 0.0 % [facility] - red blood cell (erythrocyte) count, per high power field 0.0 10*3/UL [facility] - eosinophils as percent of blood leukocytes [...] as % of total hemoglobin 5.3 % [facility] 4.0 - 5.6 thyroid stimulating hormone, serum 0.005 ??IU/ML [facility] 0.270 - 4.200 Low ferritin, serum 80.5 ng/mL [facility] 13.0 - 150.0 anion gap, serum 12.7 [facility] - albumin/globulin ratio, serum 1.8 g/dL [facility] 1.1 - 2.5 globulin, serum 2.3 [facility] 2.3 - 3.8 urea nitrogen/creatinine ratio, serum 25.0 [facility] - Estimated Glomerular Filtration Rate (calc) 108.4 (?) [facility] 59.0 - chloride, serum 106.3 mmol/L [facility] 98.0 - 107.0 potassium, serum 4.1 mmol/L [facility] 3.5 - 5.1 sodium, serum 141.0 mmol/L [facility] 136.0 - 145.0 creatinine, serum 0.6 mg/dL [facility] 0.5 - 1.0 carbon dioxide, venous blood 22.0 mmol/L [facility] 23.0 - 31.0 Low albumin, serum 4.1 g/dL [facility] 3.5 - 5.2 calcium, serum 8.9 mg/dL [facility] 8.6 - 10.2 aspartate aminotransferase (SGOT), serum 17.0 1/L [facility] 0.0 - 32.0 alkaline phosphatase, serum 72.0 1/L [facility] 40.0 - 130.0 alanine aminotransferase (SGPT), serum 17.0 1/L [facility] 0.0 - 33.0 protein, total, serum 6.4 g/dL [facility] 6.6 - 8.7 Low bilirubin, serum, total 0.2 mg/dL [facility] 0.0 - 1.2 urea nitrogen, blood 15.0 mg/dL [facility] 6.0 - 20.0 blood glucose, random 91.0 mg/dL [facility] 74.0 - 99.0 red blood cell distribution width, size density 46.9 fL [facility] - immature granulocytes, percentage of total cells, blood 0.3 % [facility] - nucleated red blood cells as percent of blood leukocytes 0.0 % [facility] - red blood cell (erythrocyte) count, per high power field 0.0 10*3/UL [facility] - eosinophils as percent of blood leukocytes [...] as percent of blood leukocytes 19.2 % [facility] Absolute Lymphocytes 1.3 CELLS/UL [facility] 0.9 [...] cell distribution width, size density 59.3 fL [facility] - immature granulocytes, percentage of total cells, blood 0.3 % [facility] - nucleated red blood cells as percent of blood leukocytes 0.0 % [facility] - red blood cell (erythrocyte) count, [...] - 3.9 mean platelet volume 11.6 (?) [facility] - platelet count 250.0 THOUSAND/UL [facility] 100.0 [...] - 8.7 bilirubin, serum, total 0.2 mg/dL [facility] 0.0 - 1.2 urea nitrogen, blood 10.0 mg/dL [facility] 6.0 - 20.0 blood glucose, random 90.0 mg/dL [facility] 74.0 - 99.0 red blood cell distribution width, size density 55.3 fL [facility] - immature granulocytes, percentage of total cells, blood 0.7 % [facility] - nucleated red blood cells as percent of blood leukocytes 0.0 % [facility] - red blood cell (erythrocyte) count, per high power field 0.0 10*3/UL [facility] - eosinophils as percent of blood leukocytes 3.2 % [facility] - neutrophils as percent of blood leukocytes 58.6 % [facility] - Absolute Neutrophils 3.5 CELLS/UL [facility] 1.5 - 7.8 basophils as percent of blood leukocytes 0.5 % [facility] - Absolute Basophils 0.0 CELLS/UL [facility] 0.0 - 0.2 monocytes as percent of blood leukocytes 6.7 % [facility] - Absolute Monocytes 0.4 CELLS/UL [facility] 0.2 - 1.0 lymphocytes as percent of blood leukocytes 30.3 % [facility] - Absolute Lymphocytes 1.8 CELLS/UL [facility] 0.9 - 3.9 mean platelet volume 11.4 (?) [facility] - platelet count 252.0 THOUSAND/UL [facility] 100.0 - 400.0 mean corpuscular hemoglobin concentration, RBC 28.5 G/DL [facility] 31.0 - 38.0 Low mean corpuscular hemoglobin, RBC 24.9 pg [facility] 25.0 - 35.0 Low mean corpuscular volume, RBC 87.6 fL [facility] 75.0 - 100.0 hematocrit, blood 41.1 [...] cell distribution width, size density 56.5 fL [facility] - immature granulocytes, percentage of total cells, blood 0.3 % [facility] - nucleated red blood cells as percent of blood leukocytes 0.0 % [facility] - red blood cell (erythrocyte) count, per high power field 0.0 10*3/UL [facility] - eosinophils as percent of blood leukocytes 2.3 % [facility] - neutrophils as percent of blood [...] percent of blood leukocytes 15.7 % [facility] - Absolute Lymphocytes 1.2 CELLS/UL [facility] 0.9 - 3.9 mean platelet volume 11.6 (?) [facility] - platelet count 269.0 THOUSAND/UL [facility] [...] 150.0 iron binding capacity, total 230.0 (?) [facility] - iron, serum 38.0 ug/dL [facility] 25.0 - 156.0 red blood cell distribution width, size density 59.4 fL [facility] - immature granulocytes, percentage of total cells, blood 0.4 % [facility] - nucleated red blood cells as percent of blood leukocytes 0.0 % [facility] - red blood cell (erythrocyte) count, per high power field 0.0 10*3/UL [facility] - eosinophils as percent of blood leukocytes 5.6 % [facility] - neutrophils as percent of blood leukocytes 41.9 % [facility] - Absolute Neutrophils 1.9 CELLS/UL [facility] 1.5 - 7.8 basophils as percent of blood leukocytes 0.4 % [facility] - Absolute Basophils 0.0 CELLS/UL [facility] 0.0 - 0.2 monocytes as percent of blood leukocytes 11.4 % [facility] - Absolute Monocytes 0.5 CELLS/UL [facility] 0.2 - 1.0 lymphocytes as percent of blood leukocytes 40.3 % [facility] - Absolute Lymphocytes 1.8 CELLS/UL [facility] 0.9 - 3.9 mean platelet volume 11.5 (?) [facility] - platelet count 231.0 THOUSAND/UL [facility] 100.0 - 400.0 mean corpuscular hemoglobin concentration, RBC 28.3 G/DL [facility] 31.0 - 38.0 Low mean corpuscular hemoglobin, RBC 24.1 pg [facility] 25.0 - 35.0 Low mean corpuscular volume, RBC 85.2 fL [facility] 75.0 - 100.0 hematocrit, blood 37.5 % [...] cell distribution width, size density 62.4 fL [facility] - immature granulocytes, percentage of total cells, blood 0.4 % [facility] - nucleated red blood cells as percent of blood leukocytes 0.0 % [facility] - red blood cell (erythrocyte) count, per high power field 0.0 10*3/UL [facility] - eosinophils as percent of blood leukocytes 4.3 % [facility] - neutrophils as percent of blood leukocytes 64.7 % [facility] - Absolute Neutrophils 5.3 CELLS/UL [facility] 1.5 - 7.8 basophils as percent of blood leukocytes 0.2 % [facility] - Absolute Basophils 0.0 CELLS/UL [facility] 0.0 - 0.2 monocytes as percent of blood leukocytes 7.2 % [facility] - Absolute Monocytes 0.6 CELLS/UL [facility] 0.2 - 1.0 lymphocytes as percent of blood leukocytes 23.2 % [facility] - Absolute Lymphocytes 1.9 CELLS/UL [facility] 0.9 - 3.9 mean platelet volume 11.3 (?) [facility] - platelet count 303.0 THOUSAND/UL [facility] 100.0 - 400.0 mean corpuscular hemoglobin concentration, RBC 27.8 G/DL [facility] 31.0 - 38.0 Low mean corpuscular [...] cell distribution width, size density 65.1 fL [facility] - immature granulocytes, percentage of total cells, blood 0.5 % [facility] - nucleated red blood cells as percent of blood leukocytes 0.0 % [facility] - red blood cell (erythrocyte) count, per high power field 0.0 10*3/UL [facility] - eosinophils as percent of blood leukocytes 3.3 % [facility] - neutrophils as percent of blood leukocytes 50.6 % [facility] - Absolute Neutrophils 3.4 CELLS/UL [facility] 1.5 - 7.8 basophils as percent of blood leukocytes 0.5 % [facility] - Absolute Basophils 0.0 CELLS/UL [facility] 0.0 - 0.2 monocytes as percent of blood leukocytes 8.7 % [facility] Absolute Monocytes Complains of indigestion/ heartburn; Denies nausea, vomiting, diarrhea, constipation , abdominal pain, jaundice, gas/bloating [facility] 0.2 - 1.0 lymphocytes as percent of blood leukocytes 36.4 % [facility] Absolute Lymphocytes 2.4 CELLS/UL [facility] 0.9 [...] 25 mg tablet completed - Daisha John SANITARIAN INSPECTOR albuterol sulfate 90 mcg/actuation HFA aerosol inhaler active INHALE 1 PUFF BY MOUTH EVERY 4 HOURS NEEDED Daisha John NP omeprazole 40 mg capsule,delayed release(DR/EC) active Daisha John SANITARIAN INSPECTOR amlodipine 5 mg tablet active Daisha John SANITARIAN INSPECTOR alendronate 70 mg tablet active Daisha John SANITARIAN INSPECTOR levothyroxine 175 mcg tablet active TAKE 1 [...] ORAL TABLET completed 3 times daily - [facility] Trileptal 300 mg tablet active [...] lcohol Use - no Smoking History: Eliot solnao is a former smoker. Piyush Espinosa MD cigarette use yes Alessio guevara smoking status Former smoker Piyush mendez MD FUNCTIONAL STATUS Date Observation Value Provider HRA, CV Assess/Plan, Angina (inactive) Management Plan continue current therapy, antianginal therapy Renae Hernandez SANITARIAN INSPECTOR HRA, CV Assess/Plan, Angina (inactive) Management Plan continue current therapy Michael Garcia MD FAMILY HISTORY Family Member Condition Father Family History of Co marci Cancer Mother Family History of Ot her Diseases INSURANCE PROVIDERS Payer name Policy type / Coverage type [place] red [employer] party ID AARP [facility] ADVANTAGE PLAN 2 (HMO-POS) Medicare [id number] ADVANCE DIRECTIVES Name Date DISCUSSED - NO [...] her cath, echo, and stress testing from [facility] echo to assess LV systolic function and valvular funciton Michael Garcia MD Cardiology:WIll obta in her cath, echo, and stress testing from [facility] Michael Garcia MD Hem/Onc Follow up:Th e patient complains of fatigue and weight gain. Given these symptoms, I will not decrease her levothyroxine any further despite her TSH still being suppressed. I will repeat TSH with reflext FT4 upon return visit. Orders: T SH reflex FT4 ([id number]) 9 9214 MOD Complex (CPT-[id number]) Piyush Espinosa MD Hem/Onc Follow up:Th e patient's iron stores remain repleted. She will conitnue every two month IV iron infusions. She will return in three months for follow up and repeat iron stores. Orders: S NOMED-CT: [id number] Current Medications Documented ([id number]) C BC (INCLUDES DIFF/PLT) (6399) C OMPREHENSIVE METABOLIC PANEL W/EGFR (86263) F ERRITIN (457) I EVER AND TOTAL IRON BINDING CAPACITY (7573) 9 9214 MOD Complex (CPT-54083) Piyush Espinosa MD Hem/Onc Follow up :T he patient has not had repeat thyroid studies. Recheck TSH. Defer adjustment in thyroid medication to Dr. Bowden. Orders: T SH + Free T4 ([id number]) C BC (INCLUDES DIFF/PLT) (6399) F ERRITIN (457) I EVER AND TOTAL IRON BINDING CAPACITY (7573) 9 9214 MOD Complex ([id number]) Piyush Espinosa MD Hem/Onc Follow up :T he patient's hemoglobin remains stable on a every two month IV iron infusion. She will continue current schedule. She will return in three months for follow up. Labs 1 week prior to office visit. Orders: C BC (INCLUDES DIFF/PLT) (6399) F ERRITIN (457) I EVER AND TOTAL IRON BINDING CAPACITY (7573) 9 9214 MOD Complex (CPT-[id number]) Piyush Espinosa MD Hem/Onc:I have decre ased [...] prior to office visit. Orders: S NOMED-CT: [id number] Current Medications Documented ([id number]) C BC (INCLUDES DIFF/PLT) (6399) C OMPREHENSIVE METABOLIC PANEL W/EGFR (78946) F ERRITIN (457) I EVER AND TOTAL IRON BINDING CAPACITY (7573) R ETICULOCYTE COUNT, MANUAL (8699) 9 9214 MOD Complex (CPT-47517) Piyush Espinosa MD Hem/Onc:Her Hgb has normalized. Her transferrin saturation is improved but still less than 20%. I will change her IV iron infusion to every two months. She will return in three months for follow up. Labwork 1 week prior to office visit. Orders: C BC (INCLUDES DIFF/PLT) (6399) C OMPREHENSIVE METABOLIC PANEL W/EGFR (21126) R ETICULOCYTE COUNT, MANUAL (8699) I EVER AND TOTAL IRON BINDING CAPACITY (7573) F ERRITIN (457) 9 9213 LTD. Complex (CPT-05707) Piyush Espinosa MD Hem/Onc Follow up :Anna [...] bone marrow biopsy results. Orders: S NOMED-CT: [id number] Current Medications Documented ([id number]) F ERRITIN (457) C BC (INCLUDES DIFF/PLT) [...] this plan. Orders: 9 9203 LTD. Complex (CPT-14832) Piyush Espinosa MD Date Name myocardial blood [...] Images Jasbir Duggan MD complet ed SNOMED-CT: [id number] Current Medications Documented Piyush Espinosa MD completed SNOMED-CT: 514554293542090 Current Medications Documented Piyush Espinosa MD completed SNOMED-CT: 834530019411720 Current Medications Documented Piyush Espinosa MD completed SNOMED-CT: 746297359633989 Current Medications Documented Piyush Espinosa MD completed SNOMED-CT: 831930883596438 Current Medications Documented Piyush Espinosa MD completed SNOMED-CT: 799691837613827 Current Medications Documented Piyush Espinosa MD completed ePrescribe - Check t his box if eRx is used NELY BOWDEN MD completed
--- OUTSIDE RECORDS SUMMARY | 2024-06-21 18:40 | XMS_ITS | Encounter Summary ---
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
--- OUTSIDE RECORDS SUMMARY | 2024-06-21 18:40 | XMS_ITS | Clinical Summary ---
Author Organization [facility] Address [address] [place] [address] Care Team Providers Care Utility System Operator Name Role Phone Unavailable Primary Care Provider [...]
--- OUTSIDE RECORDS SUMMARY | 2024-06-21 18:40 | XMS_ITS | Clinical Summary ---
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
[2024-06-21 18:42] LABS: Creatine Kinase 68 U/L (30-135)
--- NOTE | 2024-06-21 18:50 | P.HP_ITS ---
H&P: HPI History of Present Illness Date/Time: 06/21/24 18:50 Chief Complaint: Weakness. Narrative: This is a 68-year-old female with hypertension, hyperlipidemia, diastolic dysfunction, chronic obstructive pulmonary disease, hypothyroidism, rheumatoid arthritis, urinary incontinence status post sacral nerve stimulator, gastroesophageal reflux disease, bipolar disorder, depression, and anxiety who presented to the emergency department via EMS from home for evaluation of weakness. She has not been feeling well for several days with symptoms to include subjective fever, headaches, poor appetite, mild shortness of breath, and dysuria. She has not been eating or drinking much and she has become increasingly weak with some confusion as well (no history of dementia but she tells me that she has some memory loss). She is now feeling lightheaded and dizzy upon standing and she has had a couple of falls. She believes she briefly passed out causing at least one of the falls. She did not sustain any injuries. She denies vertigo, visual changes, focal weakness, paresthesias, difficulty speaking and swallowing, cough, chest pain, pleuritic pain, abdominal pain, epigastric pain, vomiting, and diarrhea. In the ED: She was afebrile on arrival with a blood pressure of 172/86, pulse 78, respiratory 18, SpO2 80% on room air. Labs are significant for WBC count of 10.4, hemoglobin 10.5, BUN 19, CRP 20.2. Urinalysis was positive for 2+ protein, 1+ blood, nitrates, 3+ leukocyte esterase, 11 to 20 RBC, 51 to 100 WBC, and 4+ bacteria. She tested negative for influenza, RSV, and COVID. Head CT showed no acute intracranial findings. Chest x-ray showed cardiomegaly with mild interstitial edema. She was given ceftriaxone 2 g and is being admitted in this setting for further treatment. Review of Systems Review of Systems: 12 systems were reviewed and are negativ e except for as per HPI. [facility] Past Medical History Medical History (Updated 06/21/24 @ 23:31 by Vivien Smith PA-C) Pulmonary hypertension Diastolic dysfunction Chronic obstructive pulmonary disease Rheumatoid arthritis Carpal tunnel syndrome Anxiety and depression Bipolar 1 disorder Hyperlipemia Hypertension Hypothyroidism Surgical History Surgical History (Updated 06/21/24 @ 22:58 by Vivien Smith PA-C) Status post insertion of sacral nerve stimulator History of hysterectomy History of thyroidectomy History of total left knee replacement History of tonsillectomy Family History Family History Mother Hypertension COPD (chronic obstructive pulmonary disease) Lung cancer Father Hypertension COPD (chronic obstructive pulmonary disease) Lung cancer Grandparent Cerebrovascular accident maternal grandmother Son Diabetes mellitus Social History Social History (Updated 06/21/24 @ 22:59 by Vivien Smith PA-C) Social History: Surrogate medical decision maker: Adam Arguello, son. Code status: Full code. Smoking packs per day: 1.25 Smoking cigarettes per day: 25.0 Years smoked: 45 Smoking pack-years: 56.25 Smoking status: Former smoker Tobacco type: cigarettes Additional smoking assessment comments: CURRENTLY SMOKING 1/2 PACK/DAY, TRYING TO QUIT Alcohol intake: never Alcohol use details: FORMER ALCOHOLIC QUIT 2009 Substance use: never Substance use type: does not use Do You Feel Safe in your Home?: Yes Lack of Transportation: No Lack of Food: Never True Current Housing: I Have Housing Concerned About Future Housing: No Difficulty Paying Gas/Electric Bills: No Difficulty Paying for Meds: No Currently Unemployed: No Education: Grade School Difficulty w/ Childcare or Family Care: No Living arrangements: alone Additional living arrangements comments: Lives alone. She has 1 son. 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 Spiritual care concerns: No Agree to blood products: Yes Meds Home Medications and Allergies Home Medications ?Medication ?Instructions ?Recorded ?Confirmed ?Type albuterol sulfate 90 mcg/actuation 2 inh inhalation QID PRN Shortness 08/25/21 05/04/24 History aerosol inhaler Of Breath Or Wheezing alendronate 70 mg tablet 1 tablet PO WEEKLY 08/25/21 05/04/24 History amlodipine 5 mg tablet 5 mg PO DAILY 08/25/21 05/15/24 History atorvastatin 20 mg tablet 20 mg PO DAILY 08/25/21 06/21/24 History bupropion HCl 200 mg tablet,12 hr 200 mg PO BID 08/25/21 05/15/24 History sustained-release citalopram 20 mg tablet 20 mg PO DAILY 08/25/21 05/15/24 History duloxetine 60 mg capsule,delayed 60 mg PO DAILY 08/25/21 05/15/24 History release etanercept 50 mg/mL (1 mL) 1 ea subcut WEEKLY 08/25/21 05/04/24 History subcutaneous pen injector (Enbrel SureClick) leflunomide 20 mg tablet 20 mg PO DAILY 08/25/21 05/04/24 History metoprolol tartrate 25 mg tablet 25 mg PO DAILY 08/25/21 05/15/24 History omeprazole 40 mg capsule,delayed 40 mg PO DAILY 08/25/21 06/21/24 History release risperidone 1 mg tablet 1 mg PO HS 08/25/21 05/04/24 History ropinirole 1 mg tablet 1 mg PO HS 08/25/21 05/04/24 History topiramate 100 mg tablet 100 mg PO TID 08/25/21 05/04/24 History dextromethorphan-guaifenesin 30 1 tab PO Q12HR #30 tabs 08/27/21 05/04/24 Rx mg-600 mg tablet extended [id number] hr (Mucinex DM) levothyroxine 150 mcg tablet 150 mcg PO QAM 04/21/24 06/21/24 History prednisone 5 mg tablet 5 mg PO DAILY 04/21/24 05/15/24 History hydrocodone 5 mg-acetaminophen 325 1 tablet PO Q6H PRN pain #20 tabs 05/01/24 05/04/24 Rx mg tablet Allergies Allergy/AdvReac Type Severity Reaction Status Date / Time montelukast Allergy Other Verified 05/15/24 13:53 Vital Signs Vital Signs - 24 hr 06/21/24 15:37 06/21/24 16:45 06/21/24 18:18 Temperature 97.9 F Pulse Rate 78 82 76 Respiratory Rate 18 21 H 20 Blood Pressure 172/86 H 192/80 H 156/77 H Pulse Oximetry 96 98 100 Exam Narrative: General: Moderately ill-appearing female in the semi-Mehta position in bed. Weight: 110.8 kg. BMI: 43.3. HEENT: PERRL, EOMI. Sclera anicteric. Dry mucous membranes. Neck: Supple. No midline vertebral tenderness, nuchal rigidity, thyromegaly, lymphadenopathy, or bruits though she had difficulties holding her breath. Respiratory: Mildly tachypneic though she does not appear in respiratory distress. Lung sounds are a bit coarse but are otherwise clear to auscultation. Cardiovascular: Regular rate and rhythm with S1-S2. Systolic murmur heard at the right upper sternal border. Gastrointestinal: Abdomen is soft, obese, nontender, and nondistended with positive bowel sounds. No guarding or rebound tenderness. Skin: Warm and dry. Normal capillary refill. Extremities are warm and well perf used. Extremities: No cyanosis, clubbing, or significant edema. Radial and pedal pulses intact. Neurological: Alert and oriented to name, age, date of , and place. She reports the year as 2020 in that the president is Alfred [place]. Cranial nerves 2-12 are grossly intact. Speech is clear. No facial asymmetry. Hand courtesy clerk and foot pushes are equal bilaterally. Noted to move upper and lower extremities. Generally weak without gross focal findings. Psychiatric: Cooperative with appropriate mood and flat affect. H&P: Results Labs Labs: Short CBC 06/21/24 Range/Units 15:56 WBC 10.4 H (4.5-10.0) K/mm3 Hgb 10.5 L (12.0-15.0) g/dL Hct 35.0 L (37.0-47.0) % Plt Count 171 (150-375) k/mm3 BMP 06/21/24 15:57 Sodium 138 Potassium 3.6 Chloride 105 Carbon Dioxide 22 BUN 19 H Creatinine 0.89 Glucose 106 Calcium 8.6 Cardiac Enzymes 06/21/24 06/21/24 Range/Units 15:57 15:57 Total Creatine Kinase 68 Cancelled (30-135) U/L Liver Function 06/21/24 Range/Units 15:57 Total Bilirubin 0.8 (0.2-1.3) mg/dL AST 17 (14-36) U/L ALT 15 (6-35) U/L Alkaline Phosphatase 109 (38-126) U/L Albumin 3.7 (3.5-5.1) g/dL Urine 06/21/24 Range/Units 15:57 Urine Color Dark yellow (Yellow) Urine Appearance Cloudy H (Clear) Urine pH 7.0 (5.0-9.0) Ur Specific [place] 1.018 (1.001-1.035) Urine Protein 2+ H (Negative) mg/dL Urine Glucose (UA) Negative (Negative) mg/dL Imaging Chest X-Ray 06/21/24 16:10 Impression: 1: Cardiomegaly with mild interstitial edema. Head CT 06/21/24 18:14 IMPRESSION: 1: No acute intracranial findings. Assessment and Plan Assessment and plan (1) Sepsis: Code(s): A41.9 - Sepsis, unspecified organism Status: Acute (2) Urinary tract infection: Code(s): N39.0 - Urinary tract infection, site not specified Status: Acute (3) Encephalopathy: Code(s): G93.40 - Encephalopathy, unspecified Status: Acute (4) Hypertension: Code(s): I10 - Essential (primary) hypertension Status: Acute (5) Diastolic dysfunction: Code(s): I51.89 - Other ill-defined heart diseases Status: Acute (6) Hypothyroidism: Code(s): E03.9 - Hypothyroidism, unspecified Status: Acute (7) Rheumatoid arthritis: Code(s): M06.9 - Rheumatoid arthritis, unspecified Status: Acute (8) Chronic obstructive pulmonary disease: Code(s): J44.9 - Chronic obstructive pulmonary disease, unspecified Status: Acute Plan The patient presented to the emergency department with complaints of weakness as detailed in HPI. Labs, imaging, EKG, and all reports were personally reviewed. She meets sepsis criteria with fever, leukocytosis, and altered mental status in the setting of a urinary tract infection. She has been started on ceftriaxone, pending blood and urine cultures. Lactic acid level was within normal limits in her blood pressures have been stable. Hold leflunomide for now. Confusion is likely related to underlying infection; she denies history of dementia but admits that she has issues with memory loss. She does not have any focal findings or meningeal meningeal signs on examination. Serum carbon dioxide was 22 thus hypercapnia is unlikely. Continue neurologic checks and consider brain MRI if no improvement over the course of the next 24 hours. She appears euvolemic if not a bit dry on examination however we need to be cautious was fluids as chest x-ray shows cardiomegaly with mild interstitial edema. Blood pressures were reviewed and they are stable. No acute issues with regards to COPD. Continue levothyroxine and check TSH. The rest of her medications will be reviewed and resumed as appropriate. Findings and treatment plan were discussed with the patient. Questions were solicited and answered to satisfaction. The patient's medical management will be taken over by the hospitalist team in a.m. Quality VTE Prophylaxis VTE prophylaxis: pharmacologic ordered The patient has been admitted under observation status. Hospitalist [facility] Advance Care Plan I have confirmed that the patient's Advanced Care Plan is present, code status is documented, or surrogate decision maker is listed in patient medical record.: Yes Medication Reconciliation I have utilized all available resources to obtain, update and review the patients current medications (includes all prescriptions, OTC, herbals, cannabis, and nutritional supplements).: Yes
--- NOTE | 2024-06-21 18:57 | ADMGEN ---
This patient, Alisha Arguello, was admitted to 2 Medical Room 246-. Patient/family oriented to hospital policies and general routines including ID bracelet, bed and alarms, visiting hours, pain management, procedures, bathroom and other care routines, personal items, smoking policy, room service/diet, and visiting hours. Information on how to activate the Rapid Response Team has been discussed. Patient/Family are encouraged to report perceived risks to care and to ask questions if they do not understand what they are told or what they should do.
[2024-06-22] VITALS (11 sets, daily range): BP systolic 116–148; BP diastolic 51–65; PULSE 54–76; RESP 18; TEMP 36.4–37.5; O2SAT 95–96
[2024-06-22 05:20] LABS: Hematocrit 34.2 % (37.0-47.0); Hemoglobin 10.4 g/dL (12.0-15.0); Mean Corpuscular HGB Conc 30.4 g/dl (32-36); Mean Corpuscular Hemoglobin 27.4 pg (26-34); Mean Corpuscular Volume 90.2 fl (80-100); Mean Platelet Volume 11.1 fl (7.4-10.4); Platelet Count Result 156 k/mm3 (150-375); Red Blood Count 3.79 M/mm3 (4.2-5.4); Red Cell Distribution Width 15.7 % (11.5-14.5); White Blood Count 9.5 K/mm3 (4.5-10.0)
[2024-06-22 05:28] LABS: Anion Gap 9 mmol/L (4-12); Blood Urea Nitrogen 21 mg/dL (7-17); Calcium 8.3 mg/dL (8.4-10.2); Carbon Dioxide 23 mmol/L (22-30); Chloride 104 mmol/L (98-107); Estimated CRCL calculation 65 ml/min; Estimated Glomerular Filt Rate > 60; Glucose 96 mg/dL (65-110); Magnesium 2.2 mg/dL (1.6-2.3); Potassium 3.1 mmol/L (3.4-5.0); Sodium 136 mmol/L (137-145)
[2024-06-22 06:06] LABS: Thyroid Stimulating Hormone Reflex 0.848 uIU/mL (0.465-4.68)
[2024-06-22 06:35] LABS: Folic Acid 6.1 ng/mL (2.76->20)
--- NOTE | 2024-06-22 07:13 | P.PNIM_ITS ---
Progress Note: A&P Assessment and Plan (1) Sepsis: Code(s): A41.9 - Sepsis, unspecified organism Status: Acute Assessment and Plan: meets sepsis criteria with fever, leukocytosis, and altered mental status Is likely septic from UTI, on Rocephin Blood cultures 1/2 positive Repeat blood cultures could be contaminant (2) Urinary tract infection: Code(s): N39.0 - Urinary tract infection, site not specified Status: Acute Assessment and Plan: ceftriaxone, Cultures and sensitivities pending (3) Encephalopathy: Code(s): G93.40 - Encephalopathy, unspecified Status: Acute Assessment and Plan: Patient appears to be A&O x4 on bedside exam Likely due to UTI, denies history of dementia Frequent neuro checks Hold leflunomide for now (4) Hypertension: Code(s): I10 - Essential (primary) hypertension Status: Acute Assessment and Plan: Restart home medications (5) Diastolic dysfunction: Code(s): I51.89 - Other ill-defined heart diseases Status: Acute Assessment and Plan: appears euvolemic if not a bit dry on examination however we need to be cautious was fluids as chest x-ray shows cardiomegaly with mild interstitial edema Repeat chest x-ray tomorrow Patient not on diuretics at home Hold IVF (6) Hypothyroidism: Code(s): E03.9 - Hypothyroidism, unspecified Status: Acute Assessment and Plan: Continue levothyroxine and check TSH (7) Hypokalemia: Code(s): E87.6 - Hypokalemia Status: Acute Assessment and Plan: Daily Labs Repleted as needed Time Spent With Patient Time with patient: Greater than 35 minutes Subjective Date/time seen: 06/22/24 07:13 Interval history: 68-year-old female with hypertension, hyperlipidemia, diastolic dysfunction, chronic obstructive pulmonary disease, hypothyroidism, rheumatoid arthritis, urinary incontinence status post sacral nerve stimulator, gastroesophageal reflux disease, bipolar disorder, depression, and anxiety who presented e for evaluation of weakness found to have a UTI. Patient's positive blood culture 1/2, leukocytosis resolved, afebrile could be contaminant, repeat blood cultures ordered. Review of Systems Review of Systems: 12 systems were reviewed and are negativ e except for as per HPI. Exam Narrative: General: Moderately ill-appearing female in the semi-Mehta position in bed. Weight: 110.8 kg. BMI: 43.3. HEENT: PERRL, EOMI. Sclera anicteric. Dry mucous membranes. Neck: Supple. No midline vertebral tenderness, nuchal rigidity, thyromegaly, lymphadenopathy, or bruits though she had difficulties holding her breath. Respiratory: Mildly tachypneic though she does not appear in respiratory distress. Lung sounds are a bit coarse but are otherwise clear to auscultation. Cardiovascular: Regular rate and rhythm with S1-S2. Systolic murmur heard at the right upper sternal border. Gastrointestinal: Abdomen is soft, obese, nontender, and nondistended with positive bowel sounds. No guarding or rebound tenderness. Skin: Warm and dry. Normal capillary refill. Extremities are warm and well perfused. Extremities: No cyanosis, clubbing, or significant edema. Radial and pedal pulses intact. Neurological: Alert and oriented to name, age, date of , and place. She reports the year as 2020 in that the president is Alfred [place]. Cranial nerves 2-12 are grossly intact. Speech is clear. No facial asymmetry. Hand senior it project manager and foot pushes are equal bilaterally. Noted to move upper and lower extremities. Generally weak without gross focal findings. Psychiatric: Cooperative with appropriate mood and flat affect. Objective Data Vital Signs Vital Signs: Vital Signs - 24 hr 06/21/24 15:37 06/21/24 16:45 06/21/24 18:18 Temperature 97.9 F Pulse Rate 78 82 76 Respiratory Rate 18 21 H 20 Blood Pressure 172/86 H 192/80 H 156/77 H Pulse Oximetry 96 98 100 Oxygen Delivery Oxygen Flow Rate 06/21/24 19:57 06/21/24 20:00 06/21/24 20:48 Temperature 101.0 F H 99.5 F Pulse Rate 100 78 Respiratory Rate 18 20 Blood Pressure 117/83 Pulse Oximetry 93 93 100 Oxygen Delivery Nasal Cannula Oxygen Flow Rate 1 06/21/24 20:49 06/21/24 21:08 06/21/24 23:26 Temperature Pulse Rate 80 Respiratory Rate Blood Pressure Pulse Oximetry 98 Oxygen Delivery Room Air Room Air Oxygen Flow Rate 06/22/24 00:00 06/22/24 04:00 06/22/24 05:33 Temperature 99.5 F Pulse Rate 76 73 66 Respiratory Rate 18 Blood Pressure 148/51 H Pulse Oximetry 95 Oxygen Delivery Oxygen Flow Rate Intake/Output Intake/Output: Intake & Output 06/19/24 06/20/24 06/21/24 06/22/24 23:59 23:59 23:59 23:59 Intake Total 100 Output Total 75 400 Balance 25 -400 Meds/Results Medications: Active Medications Generic Name Dose Route Start Last Admin Trade Name Freq PRN Reason Stop Dose Admin Acetaminophen 650 mg 06/21/24 23:32 Acetaminophen 325 Mg Tablet PO Q6H PRN Mild Pain (1-3) or Fever Enoxaparin Sodium 40 mg 06/22/24 09:00 Enoxaparin 40 Mg/0.4 Ml Syringe SUB-Q DAILY [facility] Ceftriaxone Sodium 1 gm in 50 mls @ 100 mls/hr 06/22/24 17:00 Rocephin 1 Gm/Ns 50 Ml IVPB Q24H [facility] Radiology Results: ITS Impressions Chest X-Ray 06/21/24 16:10 Impression: 1: Cardiomegaly with mild interstitial edema. Head CT 06/21/24 18:14 IMPRESSION: No acute intracranial findings. Labs Labs: Laboratory Results - last 24 hr 06/21/24 06/21/24 06/21/24 15:55 15:56 15:57 WBC 10.4 H RBC 3.88 L Hgb 10.5 L Hct 35.0 L MCV 90.2 MCH 27.1 MCHC 30.0 L RDW 15.9 H Plt Count 171 MPV 10.8 H Immature Gran % (Auto) 0.8 H Neut % (Auto) 81.4 H Lymph % (Auto) 6.8 L [place] % (Auto) 10.5 H Eos % (Auto) 0.3 Baso % (Auto) 0.2 Lymph # (Auto) 0.71 L [place] # (Auto) 1.1 H Eos # (Auto) 0.0 Baso # (Auto) 0.0 Abs Immat Gran (auto) 0.08 H Absolute Neuts (auto) 8.5 H Absolute Nucleated RBC 0.000 Nucleated RBC % 0.0 PT 14.8 H INR 1.1 APTT 31.9 Sodium 138 Potassium 3.6 Chloride 105 Carbon Dioxide 22 Anion Gap 11 BUN 19 H Creatinine 0.89 Estim Creat Clear Calc 74 Estimated GFR > 60 Glucose 106 Lactic Acid 1.3 Calcium 8.6 Magnesium Total Bilirubin 0.8 AST 17 ALT 15 Alkaline Phosphatase 109 Total Creatine Kinase 68 C-Reactive Protein Total Protein Albumin Vitamin B12 Folate TSH (Reflex) Urine Color Urine Appearance Urine pH Ur Specific [place] Urine Protein Urine Glucose (UA) Urine Ketones Ur Blood (Man) Urine Nitrate Urine Bilirubin Urine Urobilinogen Add Ur Microanalysis Leukocyte Esterase Rfl Urine RBC Urine WBC Ur Squamous Epith Cells Urine Bacteria Urine Casts Influenza A (RT-PCR) Negative Influenza B (RT-PCR) Negative RSV (RT-PCR) Negative SARS-CoV-2 RNA (RT-PCR) Negative 06/21/24 06/22/24 15:57 04:41 WBC 9.5 RBC 3.79 L Hgb 10.4 L Hct 34.2 L MCV 90.2 MCH 27.4 MCHC 30.4 L RDW 15.7 H Plt Count 156 MPV 11.1 H Immature Gran % (Auto) Neut % (Auto) Lymph % (Auto) [place] % (Auto) Eos % (Auto) Baso % (Auto) Lymph # (Auto) [place] # (Auto) Eos # (Auto) Baso # (Auto) Abs Immat Gran (auto) Absolute Neuts (auto) Absolute Nucleated RBC Nucleated RBC % PT INR APTT Sodium 136 L Potassium 3.1 L Chloride 104 Carbon Dioxide 23 Anion Gap 9 BUN 21 H Creatinine 0.87 Estim Creat Clear Calc 65 Estimated GFR > 60 Glucose 96 Lactic Acid Calcium 8.3 L Magnesium 2.2 Total Bilirubin AST ALT Alkaline Phosphatase Total Creatine Kinase Cancelled C-Reactive Protein 20.2 H Total Protein 7.0 Albumin 3.7 Vitamin B12 788.0 Folate 6.1 TSH (Reflex) 0.848 Urine Color Dark yellow Urine Appearance Cloudy H Urine pH 7.0 Ur Specific [place] 1.018 Urine Protein 2+ H Urine Glucose (UA) Negative Urine Ketones Negative Ur Blood (Man) 1+ H Urine Nitrate Positive H Urine Bilirubin Negative Urine Urobilinogen 2.0 H Add Ur Microanalysis Reviewed Leukocyte Esterase Rfl 3+ H Urine RBC 11-20 H Urine WBC 51-100 H Ur Squamous Epith Cells None seen Urine Bacteria 4+ H Urine Casts 6-10 Influenza A (RT-PCR) Influenza B (RT-PCR) RSV (RT-PCR) SARS-CoV-2 RNA (RT-PCR) Quality VTE Prophylaxis VTE prophylaxis: pharmacologic ordered Hospitalist [facility] Advance Care Plan I have confirmed that the patient's Advanced Care Plan is present, code status is documented, or surrogate decision maker is listed in patient medical record.: Yes Medication Reconciliation I have utilized all available resources to obtain, update and review the patients current medications (includes all prescriptions, OTC, herbals, cannabis, and nutritional supplements).: Yes
--- NOTE | 2024-06-22 08:16 | P.CDI_ITS ---
CDI Query Clarification Request 1) Encephalopathy has been documented. Please clarify type of encephalopathy: * Metabolic * Toxic * Hepatic * Hypertensive * Other * Unable to Determine 2)Patient with a BMI of 43.3 please provide a diagnosis to accompany this finding: * Overweight * Obesity * Morbid Obesity * Other/Unknown The medical chart reflects the following: Assessment and Plan (1) Sepsis: Code(s): A41.9 - Sepsis, unspecified organism Status: Acute Assessment and Plan: meets sepsis criteria with fever, leukocytosis, and altered mental status Blood cultures pending (2) Urinary tract infection: Code(s): N39.0 - Urinary tract infection, site not specified Status: Acute Assessment and Plan: ceftriaxone, pending blood and urine cultures (3) Encephalopathy: Code(s): G93.40 - Encephalopathy, unspecified Status: Acute Assessment and Plan: Confusion is likely related to underlying infection; she denies history of dementia but admits that she has issues with memory loss. neurologic checks and consider brain MRI if no improvement over the course of the next 24 hours Hold leflunomide for now <Sheba Montoya RN - Last Filed: 06/22/24 08:22> Clarified Diagnosis Clarified Diagnosis: 1.Altered mental status is likely due to UTI 2. Morbid obesity <Aniya Smith APRN - Last Filed: 06/22/24 16:14>
[2024-06-22] MEDS: CITALOPRAM HYDROBROMIDE 20 MG TABLET PO (09:09)
[2024-06-22] MEDS: ATORVASTATIN 20 MG TABLET PO (09:09)
[2024-06-22] MEDS: amLODIPine BESYLATE 5 MG TABLET PO (09:09)
[2024-06-22] MEDS: DULoxetine HCL 60 MG CAPSULE.DR PO (09:09)
[2024-06-22] MEDS: METOPROLOL TARTRATE 25 MG TABLET PO (09:09)
[2024-06-22] MEDS: buPROPion HCL SR (12HR) 100 MG TABCR 200 MG PO ×2 (09:10→16:58)
[2024-06-22] MEDS: ENOXAPARIN 40 MG/0.4 ML SYRINGE SUB-Q (09:14)
[2024-06-22] MEDS: POTASSIUM CHLORIDE 20 MEQ ER TABLET 40 MEQ PO (09:14)
[2024-06-22] MEDS: SODIUM CHLORIDE 0.9% IV 1,000 ML 75 ML IV CONT (11:28)
[2024-06-22] MEDS: risperiDONE 1 MG TABLET PO (20:27)
[2024-06-23] VITALS (10 sets, daily range): BP systolic 132–149; BP diastolic 54–60; PULSE 55–64; RESP 16–18; TEMP 36.7–36.8; O2SAT 94–97
[2024-06-23] MEDS: SODIUM CHLORIDE 0.9% IV 1,000 ML 75 ML IV CONT (01:00)
--- NOTE | 2024-06-23 05:23 | PC.NURSE ---
computer downtime from 1-5;15
[2024-06-23] MEDS: LEVOTHYROXINE SODIUM 150 MCG TABLET PO (06:04)
[2024-06-23 06:05] LABS: Basophils Percent Auto 0.3 % (0.2-1.2); Eosinophils Absolute Auto 0.2 K/mm3 (0-0.3); Eosinophils Percent Auto 2.6 % (0-4.4); Hematocrit 29.5 % (37.0-47.0); Hemoglobin 8.7 g/dL (12.0-15.0); Immature Granulocyte Absolute 0.05 K/mm3 (0.00-0.031); Immature Granulocyte Percent A 0.8 % (0-0.5); Lymphocytes Absolute Auto 0.95 K/mm3 (0.9-3.2); Lymphocytes Percent Auto 15.5 % (18.3-44.2); Mean Corpuscular HGB Conc 29.5 g/dl (32-36); Mean Corpuscular Hemoglobin 26.9 pg (26-34); Mean Platelet Volume 11.2 fl (7.4-10.4); Monocytes Absolute Auto 0.7 K/mm3 (0.1-0.6); Monocytes Percent Auto 11.8 % (2.6-8.5); Neutrophils Absolute Auto 4.2 K/mm3 (1.3-6.7); Platelet Count Result 149 k/mm3 (150-375); Red Blood Count 3.24 M/mm3 (4.2-5.4); White Blood Count 6.1 K/mm3 (4.5-10.0)
[2024-06-23 06:16] LABS: Anion Gap 9 mmol/L (4-12); Blood Urea Nitrogen 19 mg/dL (7-17); Calcium 7.8 mg/dL (8.4-10.2); Carbon Dioxide 20 mmol/L (22-30); Chloride 108 mmol/L (98-107); Estimated CRCL calculation 73 ml/min; Estimated Glomerular Filt Rate > 60; Glucose 85 mg/dL (65-110); Potassium 3.4 mmol/L (3.4-5.0); Sodium 137 mmol/L (137-145)
[2024-06-23 06:45] LABS: Hypochromasia 1+; Platelet Estimate Adequate (Adequate)
[2024-06-23 06:46] LABS: Anisocytosis 1+; Burr Cells 1+; Schistocytes None Seen
[2024-06-23] MEDS: buPROPion HCL SR (12HR) 100 MG TABCR 200 MG PO ×2 (08:38→17:25)
[2024-06-23] MEDS: CITALOPRAM HYDROBROMIDE 20 MG TABLET PO (08:39)
[2024-06-23] MEDS: amLODIPine BESYLATE 5 MG TABLET PO (08:39)
[2024-06-23] MEDS: ATORVASTATIN 20 MG TABLET PO (08:39)
[2024-06-23] MEDS: DULoxetine HCL 60 MG CAPSULE.DR PO (08:39)
[2024-06-23] MEDS: ENOXAPARIN 40 MG/0.4 ML SYRINGE SUB-Q (08:39)
[2024-06-23] MEDS: METOPROLOL TARTRATE 25 MG TABLET PO (08:39)
[2024-06-23] MEDS: cefTRIAXone 2 GM/NS 100 ML 2 GM/100 ML BAG IVPB (08:41)
[2024-06-23] MEDS: VANCOMYCIN 1,250 MG/NS 250 ML 1,250 MG/250 ML BAG 166.67 MG IVPB ×2 (10:19→12:00)
--- NOTE | 2024-06-23 14:37 | P.PNIM_ITS ---
Progress Note: A&P Assessment and Plan (1) Sepsis: Code(s): A41.9 - Sepsis, unspecified organism Status: Acute Assessment and Plan: meets sepsis criteria with fever, leukocytosis, and altered mental status Is likely septic from UTI, on Rocephin Blood cultures 1/2 positive for MRSA Repeat blood cultures Start vancomycin IV (2) Urinary tract infection: Code(s): N39.0 - Urinary tract infection, site not specified Status: Acute Assessment and Plan: ceftriaxone, Cultures and sensitivities growing Citrobacter and Staph aureus (3) Encephalopathy: Code(s): G93.40 - Encephalopathy, unspecified Status: Acute Assessment and Plan: Improving Likely due to UTI, denies history of dementia Frequent neuro checks Hold leflunomide for now (4) Hypertension: Code(s): I10 - Essential (primary) hypertension Status: Acute Assessment and Plan: Restart home medications (5) Diastolic dysfunction: Code(s): I51.89 - Other ill-defined heart diseases Status: Acute Assessment and Plan: appears euvolemic if not a bit dry on examination however we need to be cautious was fluids as chest x-ray shows cardiomegaly with mild interstitial edema Patient not on diuretics at home Hold IVF (6) Hypothyroidism: Code(s): E03.9 - Hypothyroidism, unspecified Status: Acute Assessment and Plan: Continue levothyroxine and TSH normal (7) Hypokalemia: Code(s): E87.6 - Hypokalemia Status: Acute Assessment and Plan: Daily Labs Repleted as needed Subjective Date/time seen: 06/23/24 14:37 Interval history: no overnight events. Feels better. Review of Systems Review of Systems: All systems reviewed & are unremarkable except as noted in HPI and below Exam Narrative: General: Well-appearing female in the semi-Mehta position in bed. Not in acute distress HEENT: PERRL, EOMI. Sclera anicteric. Dry mucous membranes. Neck: Supple. Nontender Respiratory: No respiratory distress Lung sounds are a bit coarse but are otherwise clear to auscultation. Cardiovascular: Regular rate and rhythm with S1-S2. Systolic murmur heard at the right upper sternal border. Gastrointestinal: Abdomen is soft, obese, nontender, and nondistended with positive bowel sounds. No guarding or rebound tenderness. Skin: Warm and dry. Normal capillary refill. Extremities are warm and well perfused. Extremities: No cyanosis, clubbing, or significant edema. Radial and pedal pulses intact. Neurological: Alert and oriented to time place and person, Cranial nerves 2-12 are grossly intact. Speech is clear. No facial asymmetry. No focal deficit Psychiatric: Cooperative with appropriate mood and flat affect. Objective Data Vital Signs Vital Signs: Vital Signs - 24 hr 06/22/24 16:00 06/22/24 19:18 06/22/24 20:00 Temperature 97.5 F L Pulse Rate 56 L 58 L 57 L Respiratory Rate 18 Blood Pressure 130/65 Pulse Oximetry 96 Oxygen Delivery 06/23/24 00:00 06/23/24 04:00 06/23/24 05:21 Temperature 98.3 F Pulse Rate 57 L 61 58 L Respiratory Rate 17 Blood Pressure 138/54 L Pulse Oximetry 94 Oxygen Delivery 06/23/24 08:00 06/23/24 08:35 06/23/24 08:39 Temperature Pulse Rate 61 64 Respiratory Rate Blood Pressure Pulse Oximetry Oxygen Delivery Room Air 06/23/24 09:29 06/23/24 11:05 06/23/24 12:00 Temperature Pulse Rate 55 L Respiratory Rate Blood Pressure Pulse Oximetry Oxygen Delivery Room Air Room Air Intake/Output Intake/Output: Intake & Output 06/20/24 06/21/24 06/22/24 06/23/24 23:59 23:59 23:59 23:59 Intake Total 100 1780 2080 Output Total 75 1000 700 Balance 25 780 1380 Meds/Results Medications: Active Medications Generic Name Dose Route Start Last Admin Trade Name Freq PRN Reason Stop Dose Admin Acetaminophen 650 mg 06/21/24 23:32 Acetaminophen 325 Mg Tablet PO Q6H PRN Mild Pain (1-3) or Fever Amlodipine Besylate 5 mg 06/22/24 09:00 06/23/24 08:39 Amlodipine Besylate 5 Mg Tablet PO 5 mg DAILY NIDIA Administration Atorvastatin Calcium 20 mg 06/22/24 09:00 06/23/24 08:39 Atorvastatin 20 Mg Tablet PO 20 mg DAILY NIDAI Administration Bupropion HCl 200 mg 06/22/24 09:00 06/23/24 08:38 Bupropion Hcl Sr (12hr) 100 Mg Tabcr PO 200 mg BID NIDIA Administration Citalopram Hydrobromide 20 mg 06/22/24 09:00 06/23/24 08:39 Citalopram Hydrobromide 20 Mg Tablet PO 20 mg DAILY NIDIA Administration Duloxetine HCl 60 mg 06/22/24 09:00 06/23/24 08:39 Duloxetine Hcl 60 Mg Capsule.Dr PO 60 mg DAILY NIDIA Administration Enoxaparin Sodium 40 mg 06/22/24 09:00 06/23/24 08:39 Enoxaparin 40 Mg/0.4 Ml Syringe SUB-Q 40 mg DAILY NIDIA Administration Sodium Chloride 1,000 mls @ 75 mls/hr 06/22/24 10:45 06/23/24 01:00 Normal Saline Iv IV CONT 75 mls/hr .[id number] NIDIA Administration Ceftriaxone Sodium 2 gm in 100 mls @ 200 mls/hr 06/23/24 09:00 06/23/24 09:11 Rocephin 2 Gm/Ns 100 Ml IVPB Infused Q24H NIDIA Infusion Vancomycin HCl 1,500 mg in 500 mls @ 250 mls/hr 06/24/24 04:00 Vancomycin 1,500 Mg/Ns 500 Ml IVPB Q18H NIDIA Levothyroxine Sodium 150 mcg 06/23/24 06:30 06/23/24 06:04 Levothyroxine Sodium 150 Mcg Tablet PO 150 mcg DAILY@0630 NIDIA Administration Metoprolol Tartrate 25 mg 06/22/24 09:00 06/23/24 08:39 Metoprolol Tartrate 25 Mg Tablet PO 25 mg DAILY NIDIA Administration Risperidone 1 mg 06/22/24 21:00 06/22/24 20:27 Risperidone 1 Mg Tablet PO 1 mg HS NIDIA Administration Radiology Results: ITS Impressions Head CT 06/21/24 18:14 IMPRESSION: No acute intracranial findings. Chest X-Ray 06/23/24 06:50 Impression: Small left pleural effusion with left basilar pulmonary edema/atelectasis versus pneumonia. Correlate clinically. Labs Labs: Laboratory Results - last 24 hr 06/23/24 05:44 WBC 6.1 RBC 3.24 L Hgb 8.7 L Hct 29.5 L MCV 91.0 MCH 26.9 MCHC 29.5 L RDW 16.0 H Plt Count 149 L MPV 11.2 H Immature Gran % (Auto) 0.8 H Neut % (Auto) 69.0 Lymph % (Auto) 15.5 L [place] % (Auto) 11.8 H Eos % (Auto) 2.6 Baso % (Auto) 0.3 Lymph # (Auto) 0.95 [place] # (Auto) 0.7 H Eos # (Auto) 0.2 Baso # (Auto) 0.0 Abs Immat Gran (auto) 0.05 H Absolute Neuts (auto) 4.2 Absolute Nucleated RBC 0.000 Band Neutrophils % Not Reportable Nucleated RBC % 0.0 Platelet Estimate Adequate Hypochromasia 1+ Anisocytosis 1+ Plato Cells 1+ Schistocytes None seen Sodium 137 Potassium 3.4 Chloride 108 H Carbon Dioxide 20 L Anion Gap 9 BUN 19 H Creatinine 0.78 Estim Creat Clear Calc 73 Estimated GFR > 60 Glucose 85 Calcium 7.8 L
[2024-06-23] MEDS: POTASSIUM CHLORIDE 20 MEQ ER TABLET 40 MEQ PO (15:29)
[2024-06-23] MEDS: risperiDONE 1 MG TABLET PO (20:20)
[2024-06-24] VITALS (10 sets, daily range): BP systolic 151–167; BP diastolic 59–64; PULSE 54–64; RESP 18–20; TEMP 36.6–36.7; O2SAT 93–98
--- NOTE | 2024-06-24 | ECHO_ITS ---
Patient Info Name: Alisha Arguello Age: 68 years : 1955 Gender: Female Ht: 63 in Wt: 253 lbs BSA: 2.33 m2 HR: 62 bpm BP: 151 / 59 mmHg Heart Rhythm: Sinus Rhythm Technical Quality: Fair Exam Date: 06/24/2024 8:45 AM Exam Location: Echo Lab Patient Status: Inpatient Admit Date: 06/22/2024 Staff Ordering Physician: Amado Atkins MD [employer] Dean: Brooke Orellana RDCS Attending Provider: Hank Salinas MD Exam Type: CA echo doppler color flow Study Info Indications - Bacteremia Complete two-dimensional, color flow and Doppler transthoracic echocardiogram is performed. Summary 1. Complete two-dimensional, color flow and Doppler transthoracic echocardiogram is performed. 2. Left ventricular systolic function is normal, estimated at 60-65%. 3. There is mildly increased left ventricular wall thickness. 4. The left ventricular diastolic function is normal. 5. There is mild to moderate aortic valve regurgitation. 6. There is trace mitral valve regurgitation. 7. There is mild mitral valve calcification. 8. There is trace tricuspid valve regurgitation. 9. No pulmonary hypertension, estimated pulmonary arterial systolic pressure is 27 mmHg. Left Ventricle Left ventricular chamber dimension is normal. Left ventricular systolic function is normal, estimated at 60-65%. There is mildly increased left ventricular wall thickness. Left ventricular septal wall motion is normal. The left ventricular diastolic function is normal. Right Ventricle Right ventricular chamber dimension is normal. Right ventricular systolic function is normal. Left Atria Left atrial chamber dimension is normal. Right Atria Right atrial chamber dimension is normal. Atrial Septum Intact interatrial septum visualized by color flow imaging. Aortic Valve The aortic valve is not well visualized. There is no aortic valve sclerosis. There is no aortic valve stenosis. There is mild to moderate aortic valve regurgitation. Pulmonic Valve The pulmonic valve is normal. There is no pulmonic valve stenosis. There is no pulmonic regurgitation. Mitral Valve The mitral valve has normal leaflets. There is no mitral valve stenosis. There is trace mitral valve regurgitation. There is mild mitral valve calcification. Tricuspid Valve The tricuspid valve leaflets are normal. There is no significant tricuspid valve stenosis. There is trace tricuspid valve regurgitation. No pulmonary hypertension, estimated pulmonary arterial systolic pressure is 27 mmHg. Pericardium/Pleural The pericardium appears normal. There is no pericardial effusion. Inferior Vena Cava Normal inferior vena cava with >50% collapse upon inspiration consistent with normal right atrial pressure, 5 mmHg. Aorta The aortic root size at the sinus of Valsalva is normal. The prox ascending aorta size is normal. Left Ventricular Outflow Tract Name Value Normal LVOT 2D LVOT Diameter 2.0 cm LVOT Doppler LVOT Peak Gradient 15 mmHg LVOT Mean Gradient 7 mmHg LVOT VTI 44 cm LVOT VTI/AV VTI Ratio 1.1 LVOT Stroke Volume 133 ml LVOT CO 8.0 l/min LVOT CI 3.4 l/min/m2 Pulmonic Valve Name Value Normal RVOT Doppler RVOT Peak Gradient 4 mmHg PV Doppler PV Peak Gradient 5 mmHg Mitral Valve Name Value Normal MV Doppler MV Decel Morgan 482 cm/s2 MV PHT 55 ms MV Area (PHT) 4.0 cm2 4.0-5.0 MV Diastolic Function MV E Peak Velocity 92 cm/s MV A Peak Velocity 100 cm/s MV E/A 0.9 MV Decel Time 191 ms MV Annular TDI MV E/e' (Septal) 12.2 <=8.0 MV E/e' (Lateral) 10.0 <=8.0 MV E/e' (Average) 11.1 Tricuspid Valve Name Value Normal TV Regurgitation Doppler TR Peak Velocity 232 cm/s TR Peak Gradient 22 mmHg Estimated PAP/RSVP RA Pressure 5 mmHg <=5 PA Systolic Pressure 27 mmHg <36 RV Systolic Pressure 27 mmHg <36 Aortic Valve Name Value Normal AV Doppler AV Peak Velocity 205 cm/s AV Peak Gradient 17 mmHg AV Mean Gradient 7 mmHg AV VTI 41 cm AV Area (Cont Eq VTI) 3.2 cm2 >=3.0 AV Area (Cont Eq David) 2.9 cm2 AV Regurgitation 2D LVOT Area 3.0 cm2 AV Regurgitation Doppler AR Decel Time 2,760 ms AR Decel Morgan 151 cm/s2 AR PHT 800 ms Ventricles Name Value Normal LV Dimensions 2D/MM IVS Diastolic Thickness (2D) 1.2 cm 0.6-1.0 LVID Diastole (2D) 4.4 cm 3.8-5.2 LVIW Diastolic Thickness (2D) 0.9 cm 0.6-0.9 LVID Systole (2D) 3.0 cm 2.2-3.5 LVOT Diameter 2.0 cm LV Mass (2D Cubed) 167.72 g 67.00-162.00 LV Mass Index (2D Cubed) 72 g/m2 43-95 Relative Wall Thickness (2D) 0.43 LV Fractional Shortening/Ejection Fraction 2D/MM LV Fractional Shortening (2D) 33 % 27-45 LV EF (2D Teicholz) 62 % 54-74 LV Diastolic Volume (4C MOD) 152 ml LV EF (4C MOD) 65 % LV Diastolic Volume (2C MOD) 168 ml LV EF (2C MOD) 60 % LV Diastolic Volume (BP MOD) 162 ml 46-106 LV Diastolic Volume Index (BP MOD) 70 ml/m2 29-61 LV Systolic Volume (BP MOD) 62 ml 14-42 LV Systolic Volume Index (BP MOD) 27 ml/m2 8-24 LV EF (BP MOD) 61 % 54-74 LV Diastolic Length (4C) 8.6 cm LV Systolic Length (4C) 7.0 cm LV Stroke Volume (4C MOD) 98 ml Atria Name Value Normal LA Dimensions LA Volume (4C A-L) 88 ml LA Volume (BP A-L) 93 ml RA Dimensions RA Area (4C) 22.7 cm2 <=18.0 Report Signatures
[2024-06-24] MEDS: VANCOMYCIN 1,500 MG/NS 500 ML 1,500 MG/500 ML BAG 125 MG IVPB ×2 (03:04→22:03)
[2024-06-24 05:15] LABS: Basophils Percent Auto 0.2 % (0.2-1.2); Eosinophils Absolute Auto 0.2 K/mm3 (0-0.3); Eosinophils Percent Auto 4.1 % (0-4.4); Hematocrit 28.6 % (37.0-47.0); Hemoglobin 8.6 g/dL (12.0-15.0); Immature Granulocyte Absolute 0.05 K/mm3 (0.00-0.031); Lymphocytes Absolute Auto 0.91 K/mm3 (0.9-3.2); Lymphocytes Percent Auto 18.9 % (18.3-44.2); Mean Corpuscular HGB Conc 30.1 g/dl (32-36); Mean Corpuscular Volume 89.7 fl (80-100); Monocytes Absolute Auto 0.6 K/mm3 (0.1-0.6); Monocytes Percent Auto 13.3 % (2.6-8.5); Neutrophils Percent Auto 62.5 % (45.5-73.1); Platelet Count Result 180 k/mm3 (150-375); Red Blood Count 3.19 M/mm3 (4.2-5.4); White Blood Count 4.8 K/mm3 (4.5-10.0)
[2024-06-24 05:23] LABS: Alanine Aminotransferase 21 U/L (6-35); Albumin Level 2.9 g/dL (3.5-5.1); Alkaline Phosphatase 122 U/L (38-126); Anion Gap 7 mmol/L (4-12); Aspartate Amino Transferase 28 U/L (14-36); Bilirubin,Total 0.2 mg/dL (0.2-1.3); Blood Urea Nitrogen 15 mg/dL (7-17); Carbon Dioxide 24 mmol/L (22-30); Chloride 110 mmol/L (98-107); Estimated CRCL calculation 68 ml/min; Estimated Glomerular Filt Rate > 60; Glucose 87 mg/dL (65-110); Magnesium 2.3 mg/dL (1.6-2.3); Potassium 3.9 mmol/L (3.4-5.0); Sodium 141 mmol/L (137-145)
[2024-06-24] MEDS: LEVOTHYROXINE SODIUM 150 MCG TABLET PO (05:36)
[2024-06-24] MEDS: cefTRIAXone 2 GM/NS 100 ML 2 GM/100 ML BAG IVPB (08:40)
--- NOTE | 2024-06-24 08:49 | PCOTNOTE ---
Attempted to see patient this am, however patient getting ECHO at this time.
[2024-06-24] MEDS: amLODIPine BESYLATE 5 MG TABLET PO (09:30)
[2024-06-24] MEDS: CITALOPRAM HYDROBROMIDE 20 MG TABLET PO (09:31)
[2024-06-24] MEDS: ATORVASTATIN 20 MG TABLET PO (09:31)
[2024-06-24] MEDS: buPROPion HCL SR (12HR) 100 MG TABCR 200 MG PO ×2 (09:31→16:39)
[2024-06-24] MEDS: METOPROLOL TARTRATE 25 MG TABLET PO (09:31)
[2024-06-24] MEDS: DULoxetine HCL 60 MG CAPSULE.DR PO (09:31)
[2024-06-24] MEDS: ENOXAPARIN 40 MG/0.4 ML SYRINGE SUB-Q (09:31)
--- NOTE | 2024-06-24 15:01 | P.PNIM_ITS ---
Progress Note: A&P Assessment and Plan (1) Sepsis: Code(s): A41.9 - Sepsis, unspecified organism Status: Acute Assessment and Plan: meets sepsis criteria with fever, leukocytosis, and altered mental status Is likely septic from UTI, on Rocephin Blood cultures 2/2 positive for MRSA Repeat blood cultures in a.m. Start vancomycin IV Echo 06/24/2024 EF 60-65% [id number] AR trace MR trace TR normal PASP. (2) Urinary tract infection: Code(s): N39.0 - Urinary tract infection, site not specified Status: Acute Assessment and Plan: ceftriaxone, Cultures and sensitivities growing Citrobacter and Staph aureus Citrobacter sensitive to ceftriaxone (3) Encephalopathy: Code(s): G93.40 - Encephalopathy, unspecified Status: Acute Assessment and Plan: Improving Likely due to UTI, denies history of dementia Frequent neuro checks Hold leflunomide for now (4) Hypertension: Code(s): I10 - Essential (primary) hypertension Status: Acute Assessment and Plan: Restart home medications (5) Diastolic dysfunction: Code(s): I51.89 - Other ill-defined heart diseases Status: Acute Assessment and Plan: appears euvolemic if not a bit dry on examination however we need to be cautious was fluids as chest x-ray shows cardiomegaly with mild interstitial edema Patient not on diuretics at home Hold IVF (6) Hypothyroidism: Code(s): E03.9 - Hypothyroidism, unspecified Status: Acute Assessment and Plan: Continue levothyroxine and TSH normal (7) Hypokalemia: Code(s): E87.6 - Hypokalemia Status: Acute Assessment and Plan: Daily Labs Repleted as needed Subjective Date/time seen: 06/24/24 15:01 Interval history: No overnight events. Denies any new complaints. Feeling better. Family at bedside and discussed with them. Review of Systems Review of Systems: All systems reviewed & are unremarkable except as noted in HPI and below Exam Narrative: General: Well-appearing female in the semi-Mehta position in bed. Not in acute distress HEENT: PERRL, EOMI. Sclera anicteric. Dry mucous membranes. Neck: Supple. Nontender Respiratory: No respiratory distress Lung sounds are a bit coarse but are oth erwise clear to auscultation. Cardiovascular: Regular rate and rhythm with S1-S2. Systolic murmur heard at the right upper sternal border. Gastrointestinal: Abdomen is soft, obese, nontender, and nondistended with positive bowel sounds. No guarding or rebound tenderness. Skin: Warm and dry. Normal capillary refill. Extremities are warm and well perfused. Extremities: No cyanosis, clubbing, or significant edema. Radial and pedal pulses intact. Neurological: Alert and oriented to time place and person, Cranial nerves 2-12 are grossly intact. Speech is clear. No facial asymmetry. No focal deficit Psychiatric: Cooperative with appropriate mood and flat affect. Objective Data Vital Signs Vital Signs: Vital Signs - 24 hr 06/23/24 16:00 06/23/24 20:00 06/23/24 20:00 Temperature Pulse Rate 59 L 59 L 60 Respiratory Rate 16 Blood Pressure Pulse Oximetry 96 Oxygen Delivery Room Air 06/23/24 21:56 06/24/24 00:00 06/24/24 04:00 Temperature 98.0 F Pulse Rate 60 64 59 L Respiratory Rate 18 Blood Pressure 149/58 H Pulse Oximetry 97 Oxygen Delivery 06/24/24 06:00 06/24/24 08:00 06/24/24 08:00 Temperature 98.0 F Pulse Rate 62 57 L Respiratory Rate 20 Blood Pressure 151/59 H Pulse Oximetry 93 Oxygen Delivery Room Air 06/24/24 09:31 Temperature Pulse Rate 62 Respiratory Rate Blood Pressure Pulse Oximetry Oxygen Delivery Intake/Output Intake/Output: Intake & Output 06/21/24 06/22/24 06/23/24 06/24/24 23:59 23:59 23:59 23:59 Intake Total 100 1780 5440 1230 Output Total 75 1000 1500 600 Balance 25 780 3940 630 Meds/Results Medications: Active Medications Generic Name Dose Route Start Last Admin Trade Name Freq PRN Reason Stop Dose Admin Acetaminophen 650 mg 06/21/24 23:32 Acetaminophen 325 Mg Tablet PO Q6H PRN Mild Pain (1-3) or Fever Amlodipine Besylate 5 mg 06/22/24 09:00 06/24/24 09:30 Amlodipine Besylate 5 Mg Tablet PO 5 mg DAILY NIDIA Administration Atorvastatin Calcium 20 mg 06/22/24 09:00 06/24/24 09:31 Atorvastatin 20 Mg Tablet PO 20 mg DAILY NIDIA Administration Bupropion HCl 200 mg 06/22/24 09:00 06/24/24 09:31 Bupropion Hcl Sr (12hr) 100 Mg Tabcr PO 200 mg BID NIDIA Administration Citalopram Hydrobromide 20 mg 06/22/24 09:00 06/24/24 09:31 Citalopram Hydrobromide 20 Mg Tablet PO 20 mg DAILY NIDIA Administration Duloxetine HCl 60 mg 06/22/24 09:00 06/24/24 09:31 Duloxetine Hcl 60 Mg Capsule.Dr PO 60 mg DAILY NIDIA Administration Enoxaparin Sodium 40 mg 06/22/24 09:00 06/24/24 09:31 Enoxaparin 40 Mg/0.4 Ml Syringe SUB-Q 40 mg DAILY NIDIA Administration Ceftriaxone Sodium 2 gm in 100 mls @ 200 mls/hr 06/23/24 09:00 06/24/24 09:10 Rocephin 2 Gm/Ns 100 Ml IVPB Infused Q24H NIDIA Infusion Vancomycin HCl 1,500 mg in 500 mls @ 250 mls/hr 06/24/24 04:00 06/24/24 07:04 Vancomycin 1,500 Mg/Ns 500 Ml IVPB Infused Q18H NIDIA Infusion Levothyroxine Sodium 150 mcg 06/23/24 06:30 06/24/24 05:36 Levothyroxine Sodium 150 Mcg Tablet PO 150 mcg DAILY@0630 NIDIA Administration Metoprolol Tartrate 25 mg 06/22/24 09:00 06/24/24 09:31 Metoprolol Tartrate 25 Mg Tablet PO 25 mg DAILY NIDIA Administration Perflutren Lipid Microsphere 0 ml 06/23/24 14:46 Perflutren Lipid Microspheres 1.5 Ml Vial Diluted To 10 Ml Total Volume IV PUSH 06/26/24 14:46 ONCE PRN adequate visualization Protocol Risperidone 1 mg 06/22/24 21:00 06/23/24 20:20 Risperidone 1 Mg Tablet PO 1 mg HS NIDIA Administration Radiology Results: ITS Impressions Head CT 06/21/24 18:14 IMPRESSION: No acute intracranial findings. Chest X-Ray 06/23/24 06:50 Impression: Small left pleural effusion with left basilar pulmonary edema/atelectasis versus pneumonia. Correlate clinically. Labs Labs: Laboratory Results - last 24 hr 06/24/24 04:31 WBC 4.8 RBC 3.19 L Hgb 8.6 L Hct 28.6 L MCV 89.7 MCH 27.0 MCHC 30.1 L RDW 16.0 H Plt Count 180 MPV 11.0 H Immature Gran % (Auto) 1.0 H Neut % (Auto) 62.5 Lymph % (Auto) 18.9 [place] % (Auto) 13.3 H Eos % (Auto) 4.1 Baso % (Auto) 0.2 Lymph # (Auto) 0.91 [place] # (Auto) 0.6 Eos # (Auto) 0.2 Baso # (Auto) 0.0 Abs Immat Gran (auto) 0.05 H Absolute Neuts (auto) 3.0 Absolute Nucleated RBC 0.000 Nucleated RBC % 0.0 Sodium 141 Potassium 3.9 Chloride 110 H Carbon Dioxide 24 Anion Gap 7 BUN 15 Creatinine 0.85 Estim Creat Clear Calc 68 Estimated GFR > 60 Glucose 87 Calcium 8.0 L Magnesium 2.3 Total Bilirubin 0.2 AST 28 ALT 21 Alkaline Phosphatase 122 Total Protein 6.0 L Albumin 2.9 L
[2024-06-24 21:22] LABS: Vancomycin Trough 10.5 ug/mL (10.0-20.0)
[2024-06-24] MEDS: risperiDONE 1 MG TABLET PO (22:04)
[2024-06-25] VITALS (10 sets, daily range): BP systolic 128–165; BP diastolic 55–86; PULSE 52–61; RESP 18–20; TEMP 36.3–36.9; O2SAT 94–96
[2024-06-25 04:28] LABS: Basophils Percent Auto 0.2 % (0.2-1.2); Eosinophils Absolute Auto 0.2 K/mm3 (0-0.3); Eosinophils Percent Auto 4.3 % (0-4.4); Hematocrit 29.4 % (37.0-47.0); Hemoglobin 8.5 g/dL (12.0-15.0); Immature Granulocyte Absolute 0.08 K/mm3 (0.00-0.031); Immature Granulocyte Percent A 1.6 % (0-0.5); Lymphocytes Absolute Auto 0.89 K/mm3 (0.9-3.2); Lymphocytes Percent Auto 18.3 % (18.3-44.2); Mean Corpuscular HGB Conc 28.9 g/dl (32-36); Mean Corpuscular Hemoglobin 26.6 pg (26-34); Mean Corpuscular Volume 91.9 fl (80-100); Mean Platelet Volume 10.5 fl (7.4-10.4); Monocytes Absolute Auto 0.6 K/mm3 (0.1-0.6); Monocytes Percent Auto 12.6 % (2.6-8.5); Neutrophils Absolute Auto 3.1 K/mm3 (1.3-6.7); Platelet Count Result 197 k/mm3 (150-375); Red Cell Distribution Width 15.9 % (11.5-14.5); White Blood Count 4.9 K/mm3 (4.5-10.0)
[2024-06-25 04:41] LABS: Alanine Aminotransferase 20 U/L (6-35); Alkaline Phosphatase 121 U/L (38-126); Anion Gap 9 mmol/L (4-12); Aspartate Amino Transferase 22 U/L (14-36); Bilirubin,Total 0.2 mg/dL (0.2-1.3); Blood Urea Nitrogen 15 mg/dL (7-17); Calcium 8.1 mg/dL (8.4-10.2); Carbon Dioxide 22 mmol/L (22-30); Chloride 109 mmol/L (98-107); Estimated CRCL calculation 72 ml/min; Estimated Glomerular Filt Rate > 60; Glucose 90 mg/dL (65-110); Magnesium 2.1 mg/dL (1.6-2.3); Potassium 3.5 mmol/L (3.4-5.0); Sodium 140 mmol/L (137-145)
[2024-06-25] MEDS: LEVOTHYROXINE SODIUM 150 MCG TABLET PO (05:58)
[2024-06-25] MEDS: ENOXAPARIN 40 MG/0.4 ML SYRINGE SUB-Q (09:12)
[2024-06-25] MEDS: CITALOPRAM HYDROBROMIDE 20 MG TABLET PO (09:12)
[2024-06-25] MEDS: buPROPion HCL SR (12HR) 100 MG TABCR 200 MG PO ×2 (09:12→17:01)
[2024-06-25] MEDS: cefTRIAXone 2 GM/NS 100 ML 2 GM/100 ML BAG IVPB (09:13)
[2024-06-25] MEDS: ATORVASTATIN 20 MG TABLET PO (09:13)
[2024-06-25] MEDS: amLODIPine BESYLATE 5 MG TABLET PO (09:13)
[2024-06-25] MEDS: METOPROLOL TARTRATE 25 MG TABLET PO (09:13)
[2024-06-25] MEDS: DULoxetine HCL 60 MG CAPSULE.DR PO (09:18)
[2024-06-25] MEDS: VANCOMYCIN 1,500 MG/NS 500 ML 1,500 MG/500 ML BAG 125 MG IVPB ×2 (09:56→21:09)
[2024-06-25] MEDS: IBUPROFEN 400 MG TABLET 800 MG PO (10:05)
--- NOTE | 2024-06-25 12:08 | P.PNIM_ITS ---
Progress Note: A&P Assessment and Plan (1) Sepsis: Code(s): A41.9 - Sepsis, unspecified organism Status: Acute Assessment and Plan: meets sepsis criteria with fever, leukocytosis, and altered mental status Is likely septic from UTI, on Rocephin Blood cultures 2/2 positive for MRSA Repeat blood cultures today Start vancomycin IV Echo 06/24/2024 EF 60-65% [id number] AR trace MR trace TR normal PASP. (2) Urinary tract infection: Code(s): N39.0 - Urinary tract infection, site not specified Status: Acute Assessment and Plan: ceftriaxone, Cultures and sensitivities growing Citrobacter and Staph aureus Citrobacter sensitive to ceftriaxone (3) Encephalopathy: Code(s): G93.40 - Encephalopathy, unspecified Status: Acute Assessment and Plan: Improving Likely due to UTI, denies history of dementia Frequent neuro checks Hold leflunomide for now (4) Hypertension: Code(s): I10 - Essential (primary) hypertension Status: Acute Assessment and Plan: Restart home medications (5) Diastolic dysfunction: Code(s): I51.89 - Other ill-defined heart diseases Status: Acute Assessment and Plan: appears euvolemic if not a bit dry on examination however we need to be cautious was fluids as chest x-ray shows cardiomegaly with mild interstitial edema Patient not on diuretics at home Hold IVF (6) Hypothyroidism: Code(s): E03.9 - Hypothyroidism, unspecified Status: Acute Assessment and Plan: Continue levothyroxine and TSH normal (7) Hypokalemia: Code(s): E87.6 - Hypokalemia Status: Acute Assessment and Plan: Daily Labs Repleted as needed Subjective Date/time seen: 06/25/24 12:08 Interval history: Week. Work with therapy yesterday. Denies any new complaints. Review of Systems Review of Systems: All systems reviewed & are unremarkable except as noted in HPI and below Exam Narrative: General: Well-appearing female in the semi-Mehta position in bed. Not in acute distress HEENT: PERRL, EOMI. Sclera anicteric. Dry mucous membranes. Neck: Supple. Nontender Respiratory: No respiratory distress Lung sounds are a bit coarse but are otherwise clear to auscultation. Cardiovascular: Regular rate and rhythm with S1-S2. Systolic murmur heard at the right upper sternal border. Gastrointestinal: Abdomen is soft, obese, nontender, and nondistended with positive bowel sounds. No guarding or rebound tenderness. Skin: Warm and dry. Normal capillary refill. Extremities are warm and well perfused. Extremities: No cyanosis, clubbing, or significant edema. Radial and pedal pulses intact. Neurological: Alert and oriented to time place and person, Cranial nerves 2-12 are grossly intact. Speech is clear. No facial asymmetry. No focal deficit Psychiatric: Cooperative with appropriate mood and flat affect. Objective Data Vital Signs Vital Signs: Vital Signs - 24 hr 06/24/24 14:00 06/24/24 16:00 06/24/24 20:00 Temperature 97.9 F Pulse Rate 57 L 59 L 61 Respiratory Rate 18 20 Blood Pressure 167/64 H Pulse Oximetry 98 96 Oxygen Delivery Room Air 06/24/24 20:00 06/24/24 20:58 06/25/24 00:00 Temperature 97.8 F Pulse Rate 60 61 55 L Respiratory Rate 20 Blood Pressure 151/61 H Pulse Oximetry 96 Oxygen Delivery 06/25/24 04:00 06/25/24 05:35 06/25/24 09:13 Temperature 97.8 F Pulse Rate 60 61 61 Respiratory Rate 20 Blood Pressure 159/67 H Pulse Oximetry 94 Oxygen Delivery Intake/Output Intake/Output: Intake & Output 06/22/24 06/23/24 06/24/24 06/25/24 23:59 23:59 23:59 23:59 Intake Total 1780 5440 3340 940 Output Total 1000 1500 1400 650 Balance 780 3940 1940 290 Meds/Results Medications: Active Medications Generic Name Dose Route Start Last Admin Trade Name Freq PRN Reason Stop Dose Admin Acetaminophen 650 mg 06/21/24 23:32 Acetaminophen 325 Mg Tablet PO Q6H PRN Mild Pain (1-3) or Fever Amlodipine Besylate 5 mg 06/22/24 09:00 06/25/24 09:13 Amlodipine Besylate 5 Mg Tablet PO 5 mg DAILY NIDIA Administration Atorvastatin Calcium 20 mg 06/22/24 09:00 06/25/24 09:13 Atorvastatin 20 Mg Tablet PO 20 mg DAILY NIDIA Administration Bupropion HCl 200 mg 06/22/24 09:00 06/25/24 09:12 Bupropion Hcl Sr (12hr) 100 Mg Tabcr PO 200 mg BID NIDIA Administration Citalopram Hydrobromide 20 mg 06/22/24 09:00 06/25/24 09:12 Citalopram Hydrobromide 20 Mg Tablet PO 20 mg DAILY NIDIA Administration Duloxetine HCl 60 mg 06/22/24 09:00 06/25/24 09:18 Duloxetine Hcl 60 Mg Capsule.Dr PO 60 mg DAILY NIDIA Administration Enoxaparin Sodium 40 mg 06/22/24 09:00 06/25/24 09:12 Enoxaparin 40 Mg/0.4 Ml Syringe SUB-Q 40 mg DAILY NIDIA Administration Ceftriaxone Sodium 2 gm in 100 mls @ 200 mls/hr 06/23/24 09:00 06/25/24 09:13 Rocephin 2 Gm/Ns 100 Ml IVPB 200 mls/hr Q24H NIDIA Administration Vancomycin HCl 1,500 mg in 500 mls @ 250 mls/hr 06/24/24 22:00 06/25/24 09:56 Vancomycin 1,500 Mg/Ns 500 Ml IVPB 125 mls/hr Q12H NIDIA Administration Levothyroxine Sodium 150 mcg 06/23/24 06:30 06/25/24 05:58 Levothyroxine Sodium 150 Mcg Tablet PO 150 mcg DAILY@0630 NIDIA Administration Metoprolol Tartrate 25 mg 06/22/24 09:00 06/25/24 09:13 Metoprolol Tartrate 25 Mg Tablet PO 25 mg DAILY NIDIA Administration Perflutren Lipid Microsphere 0 ml 06/23/24 14:46 Perflutren Lipid Microspheres 1.5 Ml Vial Diluted To 10 Ml Total Volume IV PUSH 06/26/24 14:46 ONCE PRN adequate visualization Protocol Risperidone 1 mg 06/22/24 21:00 06/24/24 22:04 Risperidone 1 Mg Tablet PO 1 mg HS NIDIA Administration Radiology Results: ITS Impressions Head CT 06/21/24 18:14 IMPRESSION: No acute intracranial findings. Chest X-Ray 06/23/24 06:50 Impression: Small left pleural effusion with left basilar pulmonary edema/atelectasis versus pneumonia. Correlate clinically. Labs Labs: Laboratory Results - last 24 hr 06/24/24 06/25/24 20:52 04:07 WBC 4.9 RBC 3.20 L Hgb 8.5 L Hct 29.4 L MCV 91.9 MCH 26.6 MCHC 28.9 L RDW 15.9 H Plt Count 197 MPV 10.5 H Immature Gran % (Auto) 1.6 H Neut % (Auto) 63.0 Lymph % (Auto) 18.3 [place] % (Auto) 12.6 H Eos % (Auto) 4.3 Baso % (Auto) 0.2 Lymph # (Auto) 0.89 L [place] # (Auto) 0.6 Eos # (Auto) 0.2 Baso # (Auto) 0.0 Abs Immat Gran (auto) 0.08 H Absolute Neuts (auto) 3.1 Absolute Nucleated RBC 0.000 Nucleated RBC % 0.0 Sodium 140 Potassium 3.5 Chloride 109 H Carbon Dioxide 22 Anion Gap 9 BUN 15 Creatinine 0.80 Estim Creat Clear Calc 72 Estimated GFR > 60 Glucose 90 Calcium 8.1 L Magnesium 2.1 Total Bilirubin 0.2 AST 22 ALT 20 Alkaline Phosphatase 121 Total Protein 6.0 L Albumin 3.0 L Vancomycin Trough 10.5
[2024-06-25] MEDS: IBUPROFEN 400 MG TABLET PO (21:09)
[2024-06-25] MEDS: risperiDONE 1 MG TABLET PO (21:09)
[2024-06-26] VITALS (11 sets, daily range): BP systolic 152–168; BP diastolic 56–62; PULSE 51–64; RESP 18–20; TEMP 36.5–36.7; O2SAT 92–94
[2024-06-26 05:29] LABS: Estimated CRCL calculation 76 ml/min; Estimated Glomerular Filt Rate > 60
[2024-06-26] MEDS: LEVOTHYROXINE SODIUM 150 MCG TABLET PO (05:49)
[2024-06-26] MEDS: ENOXAPARIN 40 MG/0.4 ML SYRINGE SUB-Q (08:31)
[2024-06-26] MEDS: IBUPROFEN 400 MG TABLET PO ×2 (08:31→21:18)
[2024-06-26] MEDS: buPROPion HCL SR (12HR) 100 MG TABCR 200 MG PO ×2 (08:31→16:24)
[2024-06-26] MEDS: ATORVASTATIN 20 MG TABLET PO (08:32)
[2024-06-26] MEDS: METOPROLOL TARTRATE 25 MG TABLET PO (08:32)
[2024-06-26] MEDS: amLODIPine BESYLATE 5 MG TABLET PO (08:33)
[2024-06-26] MEDS: DULoxetine HCL 60 MG CAPSULE.DR PO (08:33)
[2024-06-26] MEDS: CITALOPRAM HYDROBROMIDE 20 MG TABLET PO (08:33)
[2024-06-26] MEDS: cefTRIAXone 2 GM/NS 100 ML 2 GM/100 ML BAG IVPB (08:33)
[2024-06-26 09:37] LABS: Vancomycin Trough 18.9 ug/mL (10.0-20.0)
[2024-06-26] MEDS: VANCOMYCIN 1,500 MG/NS 500 ML 1,500 MG/500 ML BAG 200 MG IVPB (10:32)
--- NOTE | 2024-06-26 11:04 | P.PNIM_ITS ---
Progress Note: A&P Assessment and Plan (1) Sepsis: Code(s): A41.9 - Sepsis, unspecified organism Status: Acute Assessment and Plan: meets sepsis criteria with fever, leukocytosis, and altered mental status Is likely septic from UTI, on Rocephin Blood cultures 2/2 positive for MRSA Repeat blood cultures today Start vancomycin IV Echo 06/24/2024 EF 60-65% [id number] AR trace MR trace TR normal PASP. (2) Urinary tract infection: Code(s): N39.0 - Urinary tract infection, site not specified Status: Acute Assessment and Plan: ceftriaxone, Cultures and sensitivities growing Citrobacter and Staph aureus Citrobacter sensitive to ceftriaxone day 6 (3) Encephalopathy: Code(s): G93.40 - Encephalopathy, unspecified Status: Acute Assessment and Plan: Improving Likely due to UTI, denies history of dementia Frequent neuro checks Hold leflunomide for now (4) Hypertension: Code(s): I10 - Essential (primary) hypertension Status: Acute Assessment and Plan: Restart home medications (5) Diastolic dysfunction: Code(s): I51.89 - Other ill-defined heart diseases Status: Acute Assessment and Plan: appears euvolemic if not a bit dry on examination however we need to be cautious was fluids as chest x-ray shows cardiomegaly with mild interstitial edema Patient not on diuretics at home Hold IVF (6) Hypothyroidism: Code(s): E03.9 - Hypothyroidism, unspecified Status: Acute Assessment and Plan: Continue levothyroxine and TSH normal (7) Hypokalemia: Code(s): E87.6 - Hypokalemia Status: Acute Assessment and Plan: Daily Labs Repleted as needed Subjective Date/time seen: 06/26/24 11:04 Interval history: No overnight events. Still feels weak. No new complaints. Review of Systems Review of Systems: All systems reviewed & are unremarkable except as noted in HPI and below Exam Narrative: General: Well-appearing female in the semi-Mehta position in bed. Not in acute distress HEENT: PERRL, EOMI. Sclera anicteric. Dry mucous membranes. Neck: Supple. Nontender Respiratory: No respiratory distress Lung sounds are a bit coarse but are otherwise clear to auscultation. Cardiovascular: Regular rate and rhythm with S1-S2. Systolic murmur heard at the right upper sternal border. Gastrointestinal: Abdomen is soft, obese, nontender, and nondistended with positive bowel sounds. No guarding or rebound tenderness. Skin: Warm and dry. Normal capillary refill. Extremities are warm and well perfused. Extremities: No cyanosis, clubbing, or significant edema. Radial and pedal pulses intact. Neurological: Alert and oriented to time place and person, Cranial nerves 2-12 are grossly intact. Speech is clear. No facial asymmetry. No focal deficit Psychiatric: Cooperative with appropriate mood and flat affect. Objective Data Vital Signs Vital Signs: Vital Signs - 24 hr 06/25/24 12:00 06/25/24 14:00 06/25/24 16:00 Temperature 97.3 F L Pulse Rate 52 L 53 L 52 L Respiratory Rate 18 Blood Pressure 128/86 Pulse Oximetry 96 Oxygen Delivery 06/25/24 20:00 06/25/24 20:00 06/25/24 22:00 Temperature 98.4 F Pulse Rate 52 L 57 L 60 Respiratory Rate 18 18 Blood Pressure 165/55 H Pulse Oximetry 96 95 Oxygen Delivery Room Air 06/26/24 00:00 06/26/24 04:00 06/26/24 06:00 Temperature 97.8 F Pulse Rate 53 L 54 L 60 Respiratory Rate 18 Blood Pressure 168/56 H Pulse Oximetry 92 Oxygen Delivery 06/26/24 07:56 06/26/24 08:04 06/26/24 08:32 Temperature Pulse Rate 61 64 Respiratory Rate 18 Blood Pressure Pulse Oximetry 92 Oxygen Delivery Room Air Intake/Output Intake/Output: Intake & Output 06/23/24 06/24/24 06/25/24 06/26/24 23:59 23:59 23:59 23:59 Intake Total 5440 3340 1650 546.7 Output Total 1500 1400 1200 590 Balance 3940 1940 450 -43.3 Meds/Results Medications: Active Medications Generic Name Dose Route Start Last Admin Trade Name Freq PRN Reason Stop Dose Admin Amlodipine Besylate 5 mg 06/22/24 09:00 06/26/24 08:33 Amlodipine Besylate 5 Mg Tablet PO 5 mg DAILY NIDIA Administration Atorvastatin Calcium 20 mg 06/22/24 09:00 06/26/24 08:32 Atorvastatin 20 Mg Tablet PO 20 mg DAILY NIDIA Administration Bupropion HCl 200 mg 06/22/24 09:00 06/26/24 08:31 Bupropion Hcl Sr (12hr) 100 Mg Tabcr PO 200 mg BID NIDIA Administration Citalopram Hydrobromide 20 mg 06/22/24 09:00 06/26/24 08:33 Citalopram Hydrobromide 20 Mg Tablet PO 20 mg DAILY NIDIA Administration Duloxetine HCl 60 mg 06/22/24 09:00 06/26/24 08:33 Duloxetine Hcl 60 Mg Capsule.Dr PO 60 mg DAILY NIDIA Administration Enoxaparin Sodium 40 mg 06/22/24 09:00 06/26/24 08:31 Enoxaparin 40 Mg/0.4 Ml Syringe SUB-Q 40 mg DAILY NIDIA Administration Ceftriaxone Sodium 2 gm in 100 mls @ 200 mls/hr 06/23/24 09:00 06/26/24 09:01 Rocephin 2 Gm/Ns 100 Ml IVPB 200 mls/hr Q24H NIDIA Infusion Vancomycin HCl 1,500 mg in 500 mls @ 250 mls/hr 06/24/24 22:00 06/26/24 10:32 Vancomycin 1,500 Mg/Ns 500 Ml IVPB 200 mls/hr Q12H NIDIA Administration Ibuprofen 400 mg 06/25/24 19:33 06/26/24 08:31 Ibuprofen 400 Mg Tablet PO 400 mg Q6H PRN Administration Pain Rated 1-3 Levothyroxine Sodium 150 mcg 06/23/24 06:30 06/26/24 05:49 Levothyroxine Sodium 150 Mcg Tablet PO 150 mcg DAILY@0630 NIDIA Administration Metoprolol Tartrate 25 mg 06/22/24 09:00 06/26/24 08:32 Metoprolol Tartrate 25 Mg Tablet PO 25 mg DAILY NIDIA Administration Perflutren Lipid Microsphere 0 ml 06/23/24 14:46 Perflutren Lipid Microspheres 1.5 Ml Vial Diluted To 10 Ml Total Volume IV PUSH 06/26/24 14:46 ONCE PRN adequate visualization Protocol Risperidone 1 mg 06/22/24 21:00 06/25/24 21:09 Risperidone 1 Mg Tablet PO 1 mg HS NIDIA Administration Radiology Results: ITS Impressions Head CT 06/21/24 18:14 IMPRESSION: No acute intracranial findings. Chest X-Ray 06/23/24 06:50 Impression: Small left pleural effusion with left basilar pulmonary edema/atelectasis versus pneumonia. Correlate clinically. Labs Labs: Laboratory Results - last 24 hr 06/26/24 06/26/24 04:33 09:18 Creatinine 0.77 Estim Creat Clear Calc 76 Estimated GFR > 60 Vancomycin Trough 18.9
[2024-06-26] MEDS: risperiDONE 1 MG TABLET PO (21:18)
[2024-06-26] MEDS: VANCOMYCIN 1,500 MG/NS 500 ML 1,500 MG/500 ML BAG 125 MG IVPB (21:18)
[2024-06-27] VITALS (12 sets, daily range): BP systolic 149–202; BP diastolic 57–98; PULSE 48–61; RESP 19–20; TEMP 36.4–36.6; O2SAT 92–100
[2024-06-27] MEDS: LEVOTHYROXINE SODIUM 150 MCG TABLET PO (05:23)
[2024-06-27] MEDS: DULoxetine HCL 60 MG CAPSULE.DR PO (08:52)
[2024-06-27] MEDS: CITALOPRAM HYDROBROMIDE 20 MG TABLET PO (08:52)
[2024-06-27] MEDS: buPROPion HCL SR (12HR) 100 MG TABCR 200 MG PO ×2 (08:52→16:39)
[2024-06-27] MEDS: SULFAMETHOXAZOLE/TRIMETHOPRIM 800/160 MG DS TABLET 1 TAB PO ×2 (08:52→20:31)
[2024-06-27] MEDS: METOPROLOL TARTRATE 25 MG TABLET PO (08:52)
[2024-06-27] MEDS: ENOXAPARIN 40 MG/0.4 ML SYRINGE SUB-Q (08:52)
[2024-06-27] MEDS: ATORVASTATIN 20 MG TABLET PO (08:53)
[2024-06-27] MEDS: amLODIPine BESYLATE 5 MG TABLET PO (08:53)
[2024-06-27] MEDS: VANCOMYCIN 1,500 MG/NS 500 ML 1,500 MG/500 ML BAG 200 MG IVPB (09:34)
--- NOTE | 2024-06-27 13:39 | P.PNIM_ITS ---
Progress Note: A&P Assessment and Plan (1) Sepsis: Code(s): A41.9 - Sepsis, unspecified organism Status: Acute Assessment and Plan: meets sepsis criteria with fever, leukocytosis, and altered mental status Is likely septic from UTI, on Rocephin Blood cultures 2/2 positive for MRSA Repeat blood cultures remains negative Start vancomycin IV Echo 06/24/2024 EF 60-65% [id number] AR trace MR trace TR normal PASP. Vancomycin IV for total 14 days from negative cultures on 06/25/2024 (2) Urinary tract infection: Code(s): N39.0 - Urinary tract infection, site not specified Status: Acute Assessment and Plan: ceftriaxone, Cultures and sensitivities growing Citrobacter and Staph aureus Citrobacter sensitive to ceftriaxone day 6 switched to oral to finish 7 days course (3) Encephalopathy: Code(s): G93.40 - Encephalopathy, unspecified Status: Acute Assessment and Plan: Improving Likely due to UTI, denies history of dementia Frequent neuro checks Hold leflunomide for now (4) Hypertension: Code(s): I10 - Essential (primary) hypertension Status: Acute Assessment and Plan: Restart home medications (5) Diastolic dysfunction: Code(s): I51.89 - Other ill-defined heart diseases Status: Acute Assessment and Plan: appears euvolemic if not a bit dry on examination however we need to be cautious was fluids as chest x-ray shows cardiomegaly with mild interstitial edema Patient not on diuretics at home Hold IVF (6) Hypothyroidism: Code(s): E03.9 - Hypothyroidism, unspecified Status: Acute Assessment and Plan: Continue levothyroxine and TSH normal (7) Hypokalemia: Code(s): E87.6 - Hypokalemia Status: Acute Assessment and Plan: Daily Labs Repleted as needed Subjective Date/time seen: 06/27/24 13:39 Interval history: No overnight events. No new complaints. Tolerating IV antibiotics. Review of Systems Review of Systems: All systems reviewed & are unremarkable except as noted in HPI and below Exam Narrative: General: Well-appearing female in the semi-Mehta position in bed. Not in acute distress HEENT: PERRL, EOMI. Sclera anicteric. Dry mucous membranes. Neck: Supple. Nontender Respiratory: No respiratory distress Lung sounds are a bit coarse but are otherwise clear to auscultation. Cardiovascular: Regular rate and rhythm with S1-S2. Systolic murmur heard at the right upper sternal border. Gastrointestinal: Abdomen is soft, obese, nontender, and nondistended with positive bowel sounds. No guarding or rebound tenderness. Skin: Warm and dry. Normal capillary refill. Extremities are warm and well perfused. Extremities: No cyanosis, clubbing, or significant edema. Radial and pedal pulses intact. Neurological: Alert and oriented to time place and person, Cranial nerves 2-12 are grossly intact. Speech is clear. No facial asymmetry. No focal deficit Psychiatric: Cooperative with appropriate mood and flat affect. Objective Data Vital Signs Vital Signs: Vital Signs - 24 hr 06/26/24 13:51 06/26/24 16:04 06/26/24 20:00 Temperature 98.1 F Pulse Rate 55 L 51 L 56 L Respiratory Rate 20 20 Blood Pressure 161/61 H Pulse Oximetry 94 94 Oxygen Delivery Room Air 06/26/24 20:00 06/26/24 20:55 06/27/24 00:00 Temperature 97.7 F Pulse Rate 56 L 56 L 48 L Respiratory Rate 20 Blood Pressure 152/62 H Pulse Oximetry 94 Oxygen Delivery 06/27/24 04:00 06/27/24 04:28 06/27/24 08:03 Temperature 97.7 F Pulse Rate 51 L 56 L 56 L Respiratory Rate 20 Blood Pressure 175/57 H Pulse Oximetry 100 Oxygen Delivery 06/27/24 08:52 06/27/24 08:53 06/27/24 12:01 Temperature Pulse Rate 61 52 L Respiratory Rate 20 Blood Pressure Pulse Oximetry 100 Oxygen Delivery Room Air Intake/Output Intake/Output: Intake & Output 06/24/24 06/25/24 06/26/24 06/27/24 23:59 23:59 23:59 23:59 Intake Total 3340 1650 2316.7 1750 Output Total 1400 1200 1440 1950 Balance 1940 450 876.7 -200 Meds/Results Medications: Active Medications Generic Name Dose Route Start Last Admin Trade Name Freq PRN Reason Stop Dose Admin Amlodipine Besylate 5 mg 06/22/24 09:00 06/27/24 08:53 Amlodipine Besylate 5 Mg Tablet PO 5 mg DAILY NIDIA Administration Atorvastatin Calcium 20 mg 06/22/24 09:00 06/27/24 08:53 Atorvastatin 20 Mg Tablet PO 20 mg DAILY NIDIA Administration Bupropion HCl 200 mg 06/22/24 09:00 06/27/24 08:52 Bupropion Hcl Sr (12hr) 100 Mg Tabcr PO 200 mg BID NIDIA Administration Citalopram Hydrobromide 20 mg 06/22/24 09:00 06/27/24 08:52 Citalopram Hydrobromide 20 Mg Tablet PO 20 mg DAILY NIDIA Administration Duloxetine HCl 60 mg 06/22/24 09:00 06/27/24 08:52 Duloxetine Hcl 60 Mg Capsule.Dr PO 60 mg DAILY NIDIA Administration Enoxaparin Sodium 40 mg 06/22/24 09:00 06/27/24 08:52 Enoxaparin 40 Mg/0.4 Ml Syringe SUB-Q 40 mg DAILY NIDIA Administration Vancomycin HCl 1,500 mg in 500 mls @ 250 mls/hr 06/24/24 22:00 06/27/24 12:06 Vancomycin 1,500 Mg/Ns 500 Ml IVPB Infused Q12H NIDIA Infusion Ibuprofen 400 mg 06/25/24 19:33 06/26/24 21:18 Ibuprofen 400 Mg Tablet PO 400 mg Q6H PRN Administration Pain Rated 1-3 Levothyroxine Sodium 150 mcg 06/23/24 06:30 06/27/24 05:23 Levothyroxine Sodium 150 Mcg Tablet PO 150 mcg DAILY@0630 NIDIA Administration Metoprolol Tartrate 25 mg 06/22/24 09:00 06/27/24 08:52 Metoprolol Tartrate 25 Mg Tablet PO 25 mg DAILY NIDIA Administration Risperidone 1 mg 06/22/24 21:00 06/26/24 21:18 Risperidone 1 Mg Tablet PO 1 mg HS NIDIA Administration Trimethoprim/Sulfamethoxazole 1 tab 06/27/24 09:00 06/27/24 08:52 Sulfamethoxazole/Trimethoprim 800/160 Mg Ds Tablet PO 06/28/24 21:01 1 tab Q12HR NIDIA Administration Radiology Results: ITS Impressions Head CT 06/21/24 18:14 IMPRESSION: No acute intracranial findings. Chest X-Ray 06/23/24 06:50 Impression: Small left pleural effusion with left basilar pulmonary edema/atelectasis versus pneumonia. Correlate clinically.
[2024-06-27] MEDS: LIDOCAINE 1% PF INJ 5 ML VIAL INFILTRATE (13:57)
[2024-06-27] MEDS: CENTRAL LINE FLUSH 10 ML IV PUSH ×2 (14:33→20:31)
[2024-06-27] MEDS: CALCIUM CARBONATE (TUMS) 500 MG (200 MG ELEMENTAL) PO (18:11)
[2024-06-27] MEDS: VANCOMYCIN 1,500 MG/NS 500 ML 1,500 MG/500 ML BAG 250 MG IVPB (20:31)
[2024-06-27] MEDS: FAMOTIDINE 20 MG TABLET PO (20:31)
[2024-06-27] MEDS: risperiDONE 1 MG TABLET PO (20:31)
[2024-06-27] MEDS: hydrALAZINE HCL 20 MG/ML VIAL 10 MG IV PUSH (23:19)
[2024-06-28] VITALS (11 sets, daily range): BP systolic 158–180; BP diastolic 69–90; PULSE 47–62; RESP 19–20; TEMP 36.4–36.5; O2SAT 94–100
[2024-06-28] MEDS: ALBUTEROL SULFATE (*SP) AEROSOL 1 PUFF 2 PUFF INHALATION (03:12)
[2024-06-28] MEDS: LEVOTHYROXINE SODIUM 150 MCG TABLET PO (05:39)
[2024-06-28] MEDS: CENTRAL LINE FLUSH 10 ML IV PUSH ×2 (05:39→17:32)
[2024-06-28 06:02] LABS: Estimated CRCL calculation 93 ml/min; Estimated Glomerular Filt Rate > 60
[2024-06-28] MEDS: VANCOMYCIN 1,500 MG/NS 500 ML 1,500 MG/500 ML BAG 250 MG IVPB (09:22)
[2024-06-28] MEDS: DULoxetine HCL 60 MG CAPSULE.DR PO (09:43)
[2024-06-28] MEDS: amLODIPine BESYLATE 5 MG TABLET PO (09:43)
[2024-06-28] MEDS: SULFAMETHOXAZOLE/TRIMETHOPRIM 800/160 MG DS TABLET 1 TAB PO (09:43)
[2024-06-28] MEDS: FAMOTIDINE 20 MG TABLET PO (09:44)
[2024-06-28] MEDS: ATORVASTATIN 20 MG TABLET PO (09:44)
[2024-06-28] MEDS: buPROPion HCL SR (12HR) 100 MG TABCR 200 MG PO ×2 (09:44→17:32)
[2024-06-28] MEDS: METOPROLOL TARTRATE 25 MG TABLET PO (09:44)
[2024-06-28] MEDS: CITALOPRAM HYDROBROMIDE 20 MG TABLET PO (09:44)
[2024-06-28] MEDS: ENOXAPARIN 40 MG/0.4 ML SYRINGE SUB-Q (09:45)
--- NOTE | 2024-06-28 10:32 | P.PNIM_ITS ---
Progress Note: A&P Assessment and Plan (1) Sepsis: Code(s): A41.9 - Sepsis, unspecified organism Status: Acute (2) Urinary tract infection: Code(s): N39.0 - Urinary tract infection, site not specified Status: Acute (3) Encephalopathy: Code(s): G93.40 - Encephalopathy, unspecified Status: Acute Plan (1) Sepsis: Code(s): A41.9 - Sepsis, unspecified organism Status: Acute Assessment and Plan: meets sepsis criteria with fever, leukocytosis, and altered mental status Is likely septic from UTI, on Rocephin Blood cultures 2/2 positive for MRSA Repeat blood cultures remains negative on vancomycin IV Echo 06/24/2024 EF 60-65% [id number] AR trace MR trace TR normal PASP. Vancomycin IV for total 14 days from negative cultures on 06/25/2024 Discontinue Bactrim because of nausea vomiting (2) Urinary tract infection: Code(s): N39.0 - Urinary tract infection, site not specified Status: Acute Assessment and Plan: ceftriaxone, Cultures and sensitivities growing Citrobacter and Staph aureus Citrobacter sensitive to ceftriaxone day 6 switched to oral to finish 7 days course (3) Encephalopathy: Code(s): G93.40 - Encephalopathy, unspecified Status: Acute Assessment and Plan: Improving Likely due to UTI, denies history of dementia Frequent neuro checks Hold leflunomide for now (4) Hypertension: Code(s): I10 - Essential (primary) hypertension Status: Acute Assessment and Plan: Restart home medications (5) Diastolic dysfunction: Code(s): I51.89 - Other ill-defined heart diseases Status: Acute Assessment and Plan: appears euvolemic if not a bit dry on examination however we need to be cautious was fluids as chest x-ray shows cardiomegaly with mild interstitial edema Patient not on diuretics at home Hold IVF (6) Hypothyroidism: Code(s): E03.9 - Hypothyroidism, unspecified Status: Acute Assessment and Plan: Continue levothyroxine and TSH normal (7) Hypokalemia: Code(s): E87.6 - Hypokalemia Status: Acute Assessment and Plan: Daily Labs Repleted as needed Subjective Date/time seen: 06/28/24 10:32 Interval history: Patient feels nauseous started taking Bactrim, and patient vomited. Denies chest pain abdomen pain, Exam Narrative: GENERAL: Pleasant, some acute distress due to nausea vomiting. Well-nourished. - EYES: EOMI. Anicteric. - HENT: Moist mucous membranes. - LUNGS: Clear to auscultation bilateral ly, no wheezing, rhonchi, or rales. - CARDIOVASCULAR: Regular rate and rhyth m. No murmur. No JVD. - ABDOMEN: Soft, non-tender and non-dist ended. No palpable masses. - EXTREMITIES: No edema. Peripheral puls es 2+. Non-tender. - NEUROLOGIC: No focal neurological defi cits. CN II-XII grossly intact. - PSYCHIATRIC: Awake, Alert and oriented x 3. Appropriate mood and affect. - SKIN: No rashes or lesions. Warm. - LYMPH: No cervical lymphadenopathy. Objective Data Vital Signs Vital Signs: Vital Signs - 24 hr 06/27/24 12:01 06/27/24 14:00 06/27/24 16:03 Temperature 97.6 F Pulse Rate 52 L 58 L 56 L Respiratory Rate 19 Blood Pressure 149/58 H Pulse Oximetry 96 Oxygen Delivery 06/27/24 20:00 06/27/24 20:00 06/27/24 21:08 Temperature 97.8 F Pulse Rate 54 L 56 L Respiratory Rate 20 Blood Pressure 187/69 H Pulse Oximetry 92 Oxygen Delivery Room Air 06/27/24 22:30 06/28/24 00:00 06/28/24 00:26 Temperature Pulse Rate 60 59 L Respiratory Rate Blood Pressure 202/98 H 158/88 H Pulse Oximetry Oxygen Delivery 06/28/24 02:52 06/28/24 04:00 06/28/24 04:48 Temperature 97.5 F L Pulse Rate 58 L 54 L 62 Respiratory Rate 20 20 Blood Pressure 178/90 H 180/69 H Pulse Oximetry 100 94 Oxygen Delivery 06/28/24 05:39 06/28/24 07:51 06/28/24 08:00 Temperature 97.6 F Pulse Rate 62 60 Respiratory Rate 20 Blood Pressure 168/76 H 176/71 H Pulse Oximetry 96 Oxygen Delivery 06/28/24 09:20 06/28/24 09:44 Temperature Pulse Rate 62 Respiratory Rate Blood Pressure Pulse Oximetry Oxygen Delivery Room Air Intake/Output Intake/Output: Intake & Output 04/20/06/26/24 06/27/24 06/28/24 23:59 23:59 23:59 23:59 Intake Total 1650 2316.7 3063 580 Output Total 1200 1440 3450 2000 Balance 450 026.1 -496 -0548 Meds/Results Medications: Active Medications Generic Name Dose Route Start Last Admin Trade Name Freq PRN Reason Stop Dose Admin Albuterol 2 puff 06/28/24 02:43 06/28/24 03:12 Albuterol Sulfate (*Sp) Aerosol 1 Puff INHALATION 2 puff Q6HRT PRN Administration Shortness Of Breath Amlodipine Besylate 5 mg 06/22/24 09:00 06/28/24 09:43 Amlodipine Besylate 5 Mg Tablet PO 5 mg DAILY NIDIA Administration Atorvastatin Calcium 20 mg 06/22/24 09:00 06/28/24 09:44 Atorvastatin 20 Mg Tablet PO 20 mg DAILY NIDIA Administration Bupropion HCl 200 mg 06/22/24 09:00 06/28/24 09:44 Bupropion Hcl Sr (12hr) 100 Mg Tabcr PO 200 mg BID NIDIA Administration Calcium Carbonate 200 mg 06/27/24 17:32 06/27/24 18:11 Calcium Carbonate (Tums) 500 Mg (200 Mg Elemental) PO 200 mg Q6H PRN Administration Indigestion Citalopram Hydrobromide 20 mg 06/22/24 09:00 06/28/24 09:44 Citalopram Hydrobromide 20 Mg Tablet PO 20 mg DAILY NIDIA Administration Duloxetine HCl 60 mg 06/22/24 09:00 06/28/24 09:43 Duloxetine Hcl 60 Mg Capsule.Dr PO 60 mg DAILY NIDIA Administration Enoxaparin Sodium 40 mg 06/22/24 09:00 06/28/24 09:45 Enoxaparin 40 Mg/0.4 Ml Syringe SUB-Q 40 mg DAILY NIDIA Administration Famotidine 20 mg 06/27/24 21:00 06/28/24 09:44 Famotidine 20 Mg Tablet PO 20 mg Q12HR NIDIA Administration Vancomycin HCl 1,500 mg in 500 mls @ 250 mls/hr 06/27/24 20:00 06/28/24 09:22 Vancomycin 1,500 Mg/Ns 500 Ml IVPB 250 mls/hr Q12H NIDIA Administration Ibuprofen 400 mg 06/25/24 19:33 06/26/24 21:18 Ibuprofen 400 Mg Tablet PO 400 mg Q6H PRN Administration Pain Rated 1-3 Levothyroxine Sodium 150 mcg 06/23/24 06:30 06/28/24 05:39 Levothyroxine Sodium 150 Mcg Tablet PO 150 mcg DAILY@0630 NIDIA Administration Metoprolol Tartrate 25 mg 06/22/24 09:00 06/28/24 09:44 Metoprolol Tartrate 25 Mg Tablet PO 25 mg DAILY NIDIA Administration Risperidone 1 mg 06/22/24 21:00 06/27/24 20:31 Risperidone 1 Mg Tablet PO 1 mg HS NIDIA Administration Sodium Chloride 10 ml 06/27/24 14:00 06/28/24 05:39 Central Line Flush IV PUSH 10 ml Q8HR NIDIA Administration Sodium Chloride 10 ml 06/27/24 13:57 Central Line Flush IV PUSH PRN PRN with TPN bag changes Sodium Chloride 20 ml 06/27/24 13:57 Central Line Flush IV PUSH PRN PRN after blood draws Trimethoprim/Sulfamethoxazole 1 tab 06/27/24 09:00 06/28/24 09:43 Sulfamethoxazole/Trimethoprim 800/160 Mg Ds Tablet PO 06/28/24 21:01 1 tab Q12HR NIDIA Administration Radiology Results: ITS Impressions Head CT 06/21/24 18:14 IMPRESSION: No acute intracranial findings. Chest X-Ray 06/23/24 06:50 Impression: Small left pleural effusion with left basilar pulmonary edema/atelectasis versus pneumonia. Correlate clinically. Labs Labs: Laboratory Results - last 24 hr 06/28/24 05:42 Creatinine 0.60 L Estim Creat Clear Calc 93 Estimated GFR > 60
--- NOTE | 2024-06-28 10:38 | P.DS_ITS ---
DS: Admitting Diagnosis Discharge Date 06/28/24 Admitting Diagnosis (1) Sepsis: Code(s): A41.9 - Sepsis, unspecified organism Status: Acute (2) Urinary tract infection: Code(s): N39.0 - Urinary tract infection, site not specified Status: Acute (3) Encephalopathy: Code(s): G93.40 - Encephalopathy, unspecified Status: Acute DS: Discharge Diagnosis Discharge Diagnosis (1) Sepsis: Code(s): A41.9 - Sepsis, unspecified organism Status: Acute (2) Urinary tract infection: Code(s): N39.0 - Urinary tract infection, site not specified Status: Acute (3) Encephalopathy: Code(s): G93.40 - Encephalopathy, unspecified Status: Acute DS: Summary Hospital Course Hospital Course: This is a 68-year-old female with hypertension, hyperlipidemia, diastolic dysfunction, chronic obstructive pulmonary disease, hypothyroidism, rheumatoid arthritis, urinary incontinence status post sacral nerve stimulator, gastroesophageal reflux disease, bipolar disorder, depression, and anxiety who presented to the emergency department via EMS from home for evaluation of weakness. She has not been feeling well for several days with symptoms to include subjective fever, headaches, poor appetite, mild shortness of breath, and dysuria. She has not been eating or drinking much and she has become in creasingly weak with some confusion as well (no history of dementia but she tells me that she has some memory loss). She is now feeling lightheaded and dizzy upon standing and she has had a couple of falls. She believes she briefly passed out causing at least one of the falls. She did not sustain any injuries. She denies vertigo, visual changes, focal weakness, paresthesias, difficulty speaking and swallowing, cough, chest pain, pleuritic pain, abdominal pain, epigastric pain, vomiting, and diarrhea. In the ED: She was afebrile on arrival with a blood pressure of 172/86, pulse 78, respiratory 18, SpO2 80% on room air. Labs are significant for WBC count of 10.4, hemoglobin 10.5, BUN 19, CRP 20.2. Urinalysis was positive for 2+ protein, 1+ blood, nitrates, 3+ leukocyte esterase, 11 to 20 RBC, 51 to 100 WBC, and 4+ bacteria. She tested negative for influenza, RSV, and COVID. Head CT showed no acute intracranial findings. Chest x-ray showed cardiomegaly with mild interstitial edema. She was given ceftriaxone 2 g and is being admitted in this setting for further treatment. The following med issues have been addressed during hospitalization Sepsis: Code(s): A41.9 - Sepsis, unspecified organism Status: Acute Assessment and Plan: meets sepsis criteria with fever, leukocytosis, and altered mental status Is likely septic from UTI, on Rocephin Blood cultures 2/2 positive for MRSA Repeat blood cultures remains negative on vancomycin IV Echo 06/24/2024 EF 60-65% [id number] AR trace MR trace TR normal PASP. Vancomycin IV for total 14 days from negative cultures on 06/25/2024 Discontinue Bactrim because of nausea vomiting (2) Urinary tract infection: Code(s): N39.0 - Urinary tract infection, site not specified Status: Acute Assessment and Plan: ceftriaxone, Cultures and sensitivities growing Citrobacter and Staph aureus Citrobacter sensitive to ceftriaxone day 6 switched to oral to finish 7 days course (3) Encephalopathy: Code(s): G93.40 - Encephalopathy, unspecified Status: Acute Assessment and Plan: Improving Likely due to UTI, denies history of dementia Frequent neuro checks Hold leflunomide for now Resolved (4) Hypertension: Code(s): I10 - Essential (primary) hypertension Status: Acute Assessment and Plan: Restart home medications (5) Diastolic dysfunction: Code(s): I51.89 - Other ill-defined heart diseases Status: Acute Assessment and Plan: Compensated (6) Hypothyroidism: Code(s): E03.9 - Hypothyroidism, unspecified Status: Acute Assessment and Plan: Continue levothyroxine and TSH normal (7) Hypokalemia: Code(s): E87.6 - Hypokalemia Status: Acute Assessment and Plan: Daily Labs Repleted as needed Time Spent with Patient Time attestation: Total time spent providing and/or coordinating discharge services: Exam Narrative: GENERAL: Pleasant, some acute distress due to nausea vomiting. Well-nourished. - EYES: EOMI. Anicteric. - HENT: Moist mucous membranes. - LUNGS: Clear to auscultation bilateral ly, no wheezing, rhonchi, or rales. - CARDIOVASCULAR: Regular rate and rhyth m. No murmur. No JVD. - ABDOMEN: Soft, non-tender and non-dist ended. No palpable masses. - EXTREMITIES: No edema. Peripheral puls es 2+. Non-tender. - NEUROLOGIC: No focal neurological defi cits. CN II-XII grossly intact. - PSYCHIATRIC: Awake, Alert and oriented x 3. Appropriate mood and affect. - SKIN: No rashes or lesions. Warm. - LYMPH: No cervical lymphadenopathy. DS: Data Data Completed and Pending Labs on day of discharge: Labs from last 24 hours 06/28/24 05:42 Creatinine 0.60 L Estim Creat Clear Calc 93 Estimated GFR > 60 Preliminary micro results at discharge 06/25/24 06:58 Blood Culture - Preliminary Blood 06/25/24 06:44 Blood Culture - Preliminary Blood 06/22/24 12:49 Blood Culture - Preliminary Blood Methicillin Resis Staph Aureus Discharge Plan Discharge Attending physician on discharge: Wilfred Vigil Consulting providers: Irving Carcamo; Vivien Smith; Aniya Smith; Amado Atkins; Ariadna Dietrich; Koffi Salmon; Donny Nassar; Stuart Eid Discharging Clinician: Wilfred Vigil Anticipated Discharge Date/Time: 06/28/24 10:39 Patient Disposition: SNF Activity: as tolerated Diet: as tolerated and heart healthy Patient Instructions: Heart Failure (GEN) Patient Language: Ivorian Stand Alone Forms: General Discharge Information Follow-up/Referrals: Katie,Herve Hernandez MD [Primary Care Provider] - (see pcp in one week) Discharge Medications: New vancomycin 1.5 gram Recon Soln 1,500 mg IV Q12H Qty: 20 0RF Continued atorvastatin 20 mg tablet 20 mg PO DAILY ropinirole 1 mg tablet 1 mg PO HS alendronate 70 mg tablet 1 tablet PO WEEKLY Patient Comments: SATURDAYS amlodipine 5 mg tablet 5 mg PO DAILY Patient Comments: QAM omeprazole 40 mg capsule,delayed release(DR/EC) 40 mg PO DAILY leflunomide 20 mg tablet 20 mg PO DAILY citalopram 20 mg tablet 20 mg PO DAILY Patient Comments: QAM albuterol sulfate 90 mcg/actuation HFA aerosol inhaler 2 inh INHALATION QID PRN (Reason: Shortness Of Breath Or Wheezing) risperidone 1 mg tablet 1 mg PO HS bupropion HCl 200 mg tablet sustained-release 12 hr 200 mg PO BID metoprolol tartrate 25 mg tablet 25 mg PO DAILY Patient Comments: QAM duloxetine 60 mg capsule,delayed release(DR/EC) 60 mg PO DAILY Patient Comments: QAM Enbrel SureClick 50 mg/mL (1 mL) pen injector 1 ea SUBCUT WEEKLY Patient Comments: SATURDAYS topiramate 100 mg tablet 100 mg PO TID Mucinex DM 30-600 mg Tablet Extended Release 12 Hr 1 tab PO Q12HR Qty: 30 0RF levothyroxine 150 mcg tablet 150 mcg PO QAM prednisone 5 mg tablet 5 mg PO DAILY hydrocodone-acetaminophen 5-325 mg tablet 1 tablet PO Q6H PRN (Reason: pain) Qty: 20 0RF Date of admission: 06/22/24 09:59 Primary Care Provider: Katie,Herve Hernandez Admitting Provider: Kiera Toure Attending physician on admission: Wilfred Vigil Condition: Stable
[2024-06-28] MEDS: METOCLOPRAMIDE HCL INJ 10 MG/2 ML VIAL IV PUSH (11:17)
== END 2024-06-28 17:40 | DRG 872 ==
LOC: ANHED 16:50 → ANH3MEDSUR 18:14 → ANH2MED 18:38 → ANH3MEDSUR 18:38
PROVIDERS: Internal Medicine; Nurse Practitioner Gerontology; Physician Assistant; Admitting Provider Family Medicine; Emergency Provider Emergency Medicine; PCP Family Medicine; Visit Provider Hospitalist
DX: A41.02 Sepsis due to Methicillin resistant Staphylococcus aureus (principal); N39.0 Urinary tract infection, site not specified; G93.40 Encephalopathy, unspecified; Z68.41 Body mass index [BMI] 40.0-44.9, adult; I10 Essential (primary) hypertension; I27.20 Pulmonary hypertension, unspecified; J44.9 Chronic obstructive pulmonary disease, unspecified; E03.9 Hypothyroidism, unspecified; E78.5 Hyperlipidemia, unspecified; E66.01 Morbid (severe) obesity due to excess calories; M06.9 Rheumatoid arthritis, unspecified; R32 Unspecified urinary incontinence; F31.9 Bipolar disorder, unspecified; F41.9 Anxiety disorder, unspecified; F17.210 Nicotine dependence, cigarettes, uncomplicated; Z20.822 Contact with and (suspected) exposure to COVID-19; Z96.652 Presence of left artificial knee joint; Z79.82 Long term (current) use of aspirin; Z96.82 Presence of neurostimulator
CPT/HCPCS: 36415; 36569; 70450; 71045; 80048; 80053; 80202; 81001; 82550; 82565; 82607; 82746; 83605; 83735; 84443; 85025; 85027; 85610; 85730; 86140; 87040; 87086; 87181; 87186; 87637; 93005; 93306; 94640; 96365; 97110; 97161; 97166; 97530; 97535; 99285; A9270; C1751; G0378; J0360; J0696; J1650; J2003; J2765; J3370; J7030

== ENCOUNTER 2024-08-24 12:11 | Inpatient (IN) | payer MEDICARE, SELFPAY ==
--- NOTE | ~2024-08-24 | US_ITS ---
BILATERAL LOWER EXTREMITY VENOUS ULTRASOUND Ordering provider: Denny Dumont MD History: . dvt . Comparison: None. FINDINGS: RIGHT LOWER EXTREMITY VEINS: --COMMON FEMORAL: Patent and free of thrombus. Normal compressibility, phasic flow and augmentation. --PROXIMAL SUPERFICIAL FEMORAL: Patent and free of thrombus. Normal compressibility, phasic flow and augmentation. --DISTAL SUPERFICIAL FEMORAL: Patent and free of thrombus. Normal compressibility, phasic flow and au gmentation. --POPLITEAL: Patent and free of thrombus. Normal compressibility, phasic flow and augmentation. --POSTERIOR TIBIAL: Patent and free of thrombus. Normal compressibility, phasic flow and augmentation . LEFT LOWER EXTREMITY VEINS: --COMMON FEMORAL: Patent and free of thrombus. Normal compressibility, phasic flow and augmentation. --PROXIMAL SUPERFICIAL FEMORAL: Patent and free of thrombus. Normal compressibility, phasic flow and augmentation. --DISTAL SUPERFICIAL FEMORAL: Patent and free of thrombus. Normal compressibility, phasic flow and au gmentation. --POPLITEAL: Patent and free of thrombus. Normal compressibility, phasic flow and augmentation. --POSTERIOR TIBIAL: Patent and free of thrombus. Normal compressibility, phasic flow and augmentation . IMPRESSION: Negative bilateral lower extremity venous US. No deep vein thrombosis. Reviewed, dictated and finalized at location A.
--- NOTE | ~2024-08-24 | CT_ITS ---
CT brain wo con Ordering provider: Naya Swan PA-C History: 69 years Female with . weakness, multiple falls . Comparison: None. Technique: CT of the head without contrast. Radiation reduction technique utilized.The dose-length pr oduct was 605.33 mGy-cm. FINDINGS: BRAIN PARENCHYMA AND CSF SPACES: Mild leukoaraiosis and diffuse cortical atrophy. Mild atheromatous d isease. No midline shift, mass effect or hemorrhage. The brain parenchyma and CSF spaces are otherwi se normal. VISUALIZED PARANASAL SINUSES: Left maxillary sinus disease. Otherwise, Well aerated. MASTOIDS: Well aerated. BONES: The bones appear intact. SOFT TISSUES: Visualized nasopharynx is normal. Superficial soft tissues are normal. IMPRESSION: No acute intracranial findings. Reviewed, dictated and finalized at location A.
--- NOTE | ~2024-08-24 | XR_ITS ---
XR chest 1V Ordering provider: Nirmala Sepulveda III DO History: 69 years Female with . weakness, sob . Comparison: June 23, 2024 FINDINGS: MEDIASTINUM: The cardiac silhouette is not enlarged. LUNGS: No effusions or pneumothorax. Opacity is seen in the area of the heart on the left side which may be elevation of the diaphragm or atelectasis unchanged from previous examination.. OTHER: No free air under the diaphragm. IMPRESSION: No definite acute cardiopulmonary pathology. Opacity in the left lower lobe which may be due to elevation of the diaphragm or atelectasis. CT eval uation advised. Reviewed, dictated and finalized at location A. IMPRESSION: No definite acute cardiopulmonary pathology. Opacity in the left lower lobe which may be due to elevation of the diaphragm o r atelectasis. CT evaluation advised.
--- NOTE | ~2024-08-24 | CT_ITS ---
EXAMINATION: CT cervical spine wo con DATE: 08/31/2024 10:20 INDICATION: Assess for spinal stenosis TECHNIQUE: Computed tomography (CT) of the cervical spine was performed without intravenous contrast. Automated exposure control and iterative reconstruction technique were employed. The dose-length pro duct was 435.07 mGy-cm. COMPARISON: None FINDINGS: Moderate to severe osteoarthritis at the atlantoaxial articulation. One-2 mm anterolisthesis C2 on C3 and 2 mm anterolisthesis C7 on T1. Instrumented C4-C7 anterior spinal fusion with incorporated bone graft at each level and with anterior plate and screw fixation. Unfused vertebral body heights are no rmal. Mild disc height loss at C3-C4, C7-T1 and T1-T2. Cervical soft tissues are unremarkable. Mild e mphysema the apices of lungs. The following disc levels are specifically discussed: C2-C3: Disc is mildly bulging. There is mild left uncovertebral joint osteoarthritis. There is modera te right and severe left facet joint osteoarthritis. There is mild left neural foraminal stenosis. Th ere is minimal central canal stenosis. C3-C4: Disc is bulging. There is moderate bilateral uncovertebral joint osteoarthritis. There is octavio re bilateral facet joint osteoarthritis. There is mild to moderate bilateral neural foraminal stenosi s. There is mild central canal stenosis. C4-C5: Mild hypertrophic change along the posterior endplate of the fused disc space. There There is fusion across the bilateral facet joints with mild hypertrophic changes. There is mild left neural fo raminal stenosis. There is mild central canal stenosis. C5-C6: Mild hypertrophic changes along the posterior endplates of the fused disc space. Facet joints are fused with mild hypertrophic changes.. There is mild right neural foraminal stenosis. There is mi nimal central canal stenosis. C6-C7: Disc space is fused. Bilateral facet joints are fused with mild hypertrophic changes. There is mild right neural foraminal stenosis. There is no central canal stenosis. C7-T1: The disc does not extend beyond the more posterior T1 endplate margin. There is mild bilateral uncovertebral joint osteoarthritis. There is severe bilateral facet joint osteoarthritis. There is m ild bilateral neural foraminal stenosis. There is minimal central canal stenosis. IMPRESSION: 1. Mild cervical spondylosis with C4-C7 anterior and posterior spinal fusion with anterior plate and screw fixation. Reviewed, dictated and finalized at location A. IMPRESSION: 1. Mild cervical spondylosis with C4-C7 anterior and posterior spinal fusion wi th anterior plate and screw fixation.
--- NOTE | ~2024-08-24 | XR_ITS ---
XR knee RT min 4V Ordering provider: Naya Swan PA-C History: . r knee pain s/p fall . Comparison: None. FINDINGS: BONES: No acute fracture or dislocation. JOINT SPACES: Narrowing of the medial compartment with osteophytes seen medially and laterally in the knee and also in the patella. SOFT TISSUES: Normal. IMPRESSION: No acute osseous abnormality right knee. Severe osteoarthritic changes. Reviewed, dictated and finalized at location A.
--- NOTE | ~2024-08-24 | CT_ITS ---
CT diagnostic chest w con Ordering provider: Naya Swan PA-C History: 69 years Female with . abnl cxr . Comparison: None. Technique: CT chest with IV contrast. Radiation reduction technique utilized. The dose-length product was 512.5 mGy-cm. Findings: VISUALIZED THORACIC INLET: Normal. MEDIASTINUM: Aorta/coronary arteries: Moderate atheromatous disease. Heart/other: The heart is slightly enlarged. Lymph nodes: No mediastinal or hilar adenopathy. LUNGS: Elevation of the left hemidiaphragm. Underlying emphysematous changes. No pulmonary nodules or masses. No infiltrates or effusions. No pneumothorax. VISUALIZED UPPER ABDOMEN: Sliding hiatus hernia. Otherwise, the visualized upper abdomen is normal. MUSCULOSKELETAL: Soft tissues: The superficial soft tissues are normal. Bones: Age appropriate degenerative changes of the spine. IMPRESSION: No acute cardiopulmonary pathology. Elevation of the left hemidiaphragm. No masses noted. Sliding hiatus hernia. Reviewed, dictated and finalized at location A.
--- NOTE | ~2024-08-24 | US_ITS ---
ULTRASOUND ANKLE BRACHIAL INDEX Ordering provider: Denny Dumont MD History: . Bilateral weakness . Comparison: None. FINDINGS: Right brachial systolic blood pressure: 170 mmHg Left brachial systolic blood pressure: 176 mmHg Right ankle systolic blood pressure: 177 mmHg Left ankle systolic blood pressure: 1.93 mmHg Right ankle/arm index (STEPHANIE): 1.01 Left ankle/arm index (STEPHANIE): 1.10. Note regarding STEPHANIE: --Normal= 1.0 or slightly greater. --Claudication (moderate stenosis or occlusive state)= 0.6 to 0.9. --Rest pain (severe occlusive states)= 0.5 or less. IMPRESSION: Bilateral normal STEPHANIE. Reviewed, dictated and finalized at location A. IMPRESSION: Bilateral normal STEPHANIE.
--- NOTE | 2024-08-24 12:27 | ECG_ITS ---
Test Date: 2024-08-24 12:33:09 Measurements Intervals [place] Rate: 46 P: -76 MN: 177 QRS: -44 QRSD: 117 T: -20 QT: 450 QTc: 395 Interpretive Statements ECTOPIC ATRIAL BRADYCARDIA LEFT AXIS DEVIATION INTRAVENTRICULAR CONDUCTION DELAY DELAYED PRECORDIAL R/S TRANSITION ST-T WAVE ABNORMALITY IN INFERIOR LEADS- CONSIDER ISCHEMIA BASELINE WANDER- V2 ABNORMAL ECG Compared to ECG 06/21/2024 15:44:58 HEART RATE HAS DECREASED POSSIBLE ISCHEMIA NOW PRESENT Electronically Signed On 08-24-2024 13:15:10 CDT by Irving Carcamo D.O.
[2024-08-24 12:30] VITALS: BP 144/68; PULSE 46; RESP 23; TEMP 36.8; O2SAT 98
[2024-08-24 12:37] VITALS: PULSE 46
--- OUTSIDE RECORDS SUMMARY | 2024-08-24 12:43 | XMS_ITS | Clinical Summary ---
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
--- OUTSIDE RECORDS SUMMARY | 2024-08-24 12:43 | XMS_ITS | Encounter Summary ---
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
--- OUTSIDE RECORDS SUMMARY | 2024-08-24 12:43 | XMS_ITS | Data Portability ---
Author Organization [facility] Address [address] [place] [address] Care Team Providers Care Weight Reduction Specialist Name Role Phone ROTHMANANITRA Primary Care Provider [phone] Assessment Encounter Date Assessment Date Assessment LastModified by Organization Details LastModified Time 04/17/2019 04/17/[address] Almaraz every 5 years for colonoscopy; has mammogram ordered in 1 week, Sung also does EGD with esophageal dilation every year. Patient quit smoking but still has a little emphysema. [email or web address] Not available 04/27/2019 23:12:00 Plan of Treatment Reminders Order Date Submit Date Provider Last Modified By Organization Details Last Modified Time Details Appointments None recorded. Lab None recorded. Referral rheumatol ogist referral - Please call patient and schedule appt. Please send consult note after initial visit. Thank you 2019 [facility] Suzanne Zaman MD, [address] , [address], [address], 0 12:04:57 Procedures None recorded. Surgeries None recorded. Imaging MAMMO, diagnosti c, digital, bilateral 2019 020 [facility] (Mammography) , [address], [place], [address], 0 12:35:21 US, breast, bilateral 2019 020 [facility] (Mammography) , [address], [place], [address], 0 12:35:21 Medication Orders None recorded. Patient TargetsNo targets recorded. 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 Please send consult note after initial visit. Thank you Referring Physician: Anitra oRthman, Family Medicine, Encounter Date: 04/17/2019 Problems No Known Problems Procedures Surgical History Date Name Laterality Status Provider Name and Address Organization Details Recorded Time 03/08/18 90 total hysterectomy completed JOSUE Poon [facility] 04/17/2019 11:47:44 total knee replacement completed JOSUE Poon [facility] 04/17/2019 11:46:29 Carpal tunnel surgery completed JOSUE Poon [facility] 04/17/2019 11:46:34 Carpal tunnel surgery completed JOSUE Poon [facility] 04/17/2019 11:46:34 Carpal tunnel surgery completed JOSUE Poon [facility] 04/17/2019 11:46:35 tonsillectomy completed JOSUE Poon [facility] 04/17/2019 11:46:41 Imaging Results None recorded. [...] % 97 % 64 /min 42.9 kg/m2 669487. 38 g 132 mm[Hg] 72 mm[Hg] Juana Smith MA [facility] 0 11:50:09 Social History Question Answer Notes LastModified by Organizat ion Details LastModified Time Tobacco Smoking Status Former Smoker Juana Smith MA null, [facility] 04/17/2019 11:44:42 Do You Have An Advance Directive? Yes Medical Will And POA Information not available 04/17/2019 What Is Your Level Of Caffeine Consumption? Moderate Information not available 04/17/2019 How Much Tobacco Do You Chew? None Information not available 04/17/2019 What Type Of Diet Are You Following? REGULAR Information not available 04/17/2019 Which Illicit Or Recreational Drugs Have You Used? None Information not available 04/17/2019 Education 2 Year College Information not available 04/17/2019 Hard Of Hearing Or [...] To Smoke? Yes Information not available 04/17/2019 How Much Tobacco Do You Smoke? No Information not available 04/17/2019 General Stress Level Low Information not available 04/17/2019 On What Date Was Tobacco Cessation Counseling Provided? 04/17/2019 Information not available 04/17/2019 How Many Years Have You Smoked Tobacco? 30 Information not available 04/17/2019 Sex: Unknown Functional Status Question Answer Note LastModified by Organizat ion Details LastModified Time What is your level of alcohol consumption? None Information not available 04/17/2019 Do you or have you ever used smokeless tobacco? Never used smokeless tobacco Information not available 04/17/2019 Are you currently employed? No Information not available 04/17/2019 Are you able to care for yourself? Yes Information not available 04/17/2019 Do you or have you ever used e-cigarettes or vape? Never used electronic cigarettes Information not available 04/17/2019 What is your [...] Problems Y Kidney or Bladder Problems N Depression N COPD Y Blood Clots N GI Problems N Skin Problems N Eating Disorder N Anemia N Heart Attack (PA) N Diabetes N Anxiety Disorder N Muscle, Joint, or Bone Problems N Seizures/Epilepsy N Acid Reflux (GERD) Y Cancer N Stroke N Allergies Y Asthma N ADHD N Substance Abuse N High Cholesterol [...] unspecified formulation 12/06/2018 completed Juana Smith MA [facility], [place] - [facility] 04/17/2019 11:49:45 Past Encounters Encounter ID Performer Location Encounter Start Date Encounter Closed Date Diagnosis/Indication Diagnosis SNOMED-CT Code Diagnosis ICD10 Code Diagnosis Note [id number] Anitra Rothman MD [facility] [address] [place] [address] 04/17/2019 11:31:59 04/28/2019 09:32:12 Rheumatoid arthritis 24689338 M06.9 enbrel shots weekly, Depression screening 171 469047 Z13.31 patient does not appear to be significan tly depressed. 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.4 patient denies taking hormone replacemen t therapy Health Concerns Section Related Observation LastModified by Organization Detai ls LastModified Time None Recorded Concern Status LastModified by Organization Details LastModified Time None Recorded Advance Directives Directive Y: Medical Will and POA Payers Insurance Date Sequence Insurance Name Policy Number Policy Church Covered Member ID Church Member ID Guarantor Name 11/03/2019 1 [employer] - [employer] (MEDICARE REPLACEMENT/ ADVANTAGE - HMO) [id number] Alisha Arguello [id number] Alisha Mathmela 06/15/2019 1 [employer] (MEDICARE REPLACEMENT/ ADVANTAGE - HMO) [id number] Alisha Floyd Mathenia [id number] Alisha Arguello Notes Date Note Type Note Provider Name and Address Organization Details Recorded Time 04/17/2019 text/html Pt. states she i s here to establish care and needs a referral Anitra Rothman MD Attn: [address] [place], [address], [facility] 04/27/2019 23:16:21 11/06/2019 text/html Breast PainReported bypatient.Location :bilateral Onset/Timin-4 weeks Duration:intermitt ent Quality:sharp; stabbing Severity:moderate Context:[place] Modifying Factors:touch; exercise; pressure Associated Symptoms:no fever; no chills; no nipple discharge; no breast swelling; no arm pain; no arm swelling; no chest pain; no malaise; facial infection treated with antibiotics; denies infections on hands or arms or abdominal wal. Anitra Rothman MD Attn: [address] [place], [address], [facility] 11/06/2019 23:54:55 OBGyn Episode Ob Episode Information Episode Created Date Number of Fetuses Patient Bloodtype Patient rh Status Prepregnancy Weight lbs Domestic Partner Domestic Partner Phone Father Name Pet Feeder Status 04/17/19 20 1 CLOSED Fetus Data First Name Last Name Admitted to NICU Weight (g) Sex Living Outcome Pediatric Complications Fetus ID Race Codes Race Delivery Type [id number] Memo Calculation Initial Memo Date Initial Exam [...]
--- OUTSIDE RECORDS SUMMARY | 2024-08-24 12:43 | XMS_ITS | Continuity of Care Document ---
Author Organization [facility] Address [address] [place] [address] Phone Care Team Providers Care Director Of Restaurants Name Role Phone Harris OD, Jeremias Unavailable [...] Diagnoses Date Provider Providers Copied on Encounter [facility], [address], [place], [place], [address], [place] tel:[phone] [facility] No Information 0-201 0 Harris OD Jeremias. [address] , [address], [place], [address], [place]. tel:[phone] [facility], [address] [place] [address] [address], [place], [place], [address], [place] tel:[phone] [facility] No Information Mar-2 5-200 9 Harris OD Jeremias. [facility] , [address], [place], [place], [facility], [place]. tel:[phone] Office/outpat ient Visit, Est [facility], [address] [place] [address] [address], [place], [place], [address], [place] tel:[phone] [facility] No Information Sep-1 0-200 8 Harris OD Jeremias. [address] [facility] , [address], [place], [facility], [place]. tel:[phone] [facility], [address] [place] [address] [address], [place], [place], [address], [place] tel:[phone] [facility] No Information Mar-1 9-200 8 Harris OD Jeremias. [facility] , [address], [place], [facility], [place]. tel:[phone] Referring Provider: Rajan Holman, [address] [place], [place] [address]ate Center [address], [place], [facility]. tel:[phone] [facility], [address] [place] [address] [address], [place], [place], [address], [place] tel:[phone] [facility] No Information Mar-0 5-200 8 Candelaria Tolentino. [facility] , [address], [place], [facility], [place]. tel:[phone] [facility], [address] [place] [address] [address], [place], [place], [address], [place] tel:[phone] [facility] No Information Mar-0 4-200 8 Candelaria Tolentino. [address] [place], [place] [address]ate Center , [address], [place], [facility], [place]. tel:[phone] [facility], [address], [place], [place], [address], [place] tel:[phone] [facility] [place] No Information 8 Candelaria Tolentino. [address] [place], [place] [address]ate Center , [address], [place], [facility], [place]. tel:[phone] Referring Provider: Rajan Holman, [facility] [address], [place], [facility]. tel:[phone] [facility], [address], [place], [place], [address], [place] tel:[phone] [facility] [place] No Information 6200 7 Candelaria Tolentino. [address] [place], [place] [address]ate Center , [address], [place], [facility], [place]. tel:[phone] Referring Provider: Jeremias Holman, [facility] [address], [place], [facility]. tel:[phone] [facility], [address], [place], [place], [address], [place] tel:[phone] [facility] No Information 8-200 7 Harris OD Jeremias. [address] [place], [place] [address]ate Rei Alexis, [address], [place], [facility], [place]. tel:[phone] Referring Provider: Rajan Holman, [facility] [address], [place], [facility]. tel:[phone] [facility], [address], [place], [place], [address], [place] tel:[phone] [facility] No Information 7200 7 Candelaria Tolentino. [facility] Re[facility] Alexis, [address], [place], [facility], [place]. tel:[phone] Referring Provider: Jeremias Harris OD River, [address] [place] [address] [address], [place], [address]. tel:[phone] [facility], [address] [place] [address] [address], [place], [place], [address], tel:[phone] [facility] No Information 0 9-200 7 Doisy Edward. [address] [place] [address] , [address], [place], [address], . tel:[phone] Referring Provider: Jeremias Holman, [address] [place] [address] [address], [place], [address]. tel:[phone] [facility], [address] [place] [address] [address], [place], [place], [address], tel:[phone] [facility] No Information 3-200 7 Harris OD Jeremias. [address] [place] [address] , [address], [place], [address], [place]. tel:[phone] Family History Family Member Type Diagnosis Age At Onset No Information Payers Payer name Insurance type Covered libertarian ID Authoriza tirocio(s) [place] [id number] Social History Type Description Quantity Date Captured [...]
--- OUTSIDE RECORDS SUMMARY | 2024-08-24 12:43 | XMS_ITS | Data Portability ---
Author Organization [place] [facility] [employer], Main Office Address [address] [place] [address] Assessment Encounter Date Assessment Date Assessment LastModified [...] Nicotine cessation counseling provided for 4 minutes. [place] for quitting nicotine include getting ready, getting [...] Registering at [email or web address] Making a call to 1-727-FVRB-NOW ( ). A strong, clear, personalized message [...] failure or relapse. Patient can enroll in [facility]'s smoking cessation class through Geraldine Escobedo RN at . Enrollment is free and classes are held every wednesday of the month from 1:30 pm to 2:30 pm at the conference room next to the cafeteria on the ground floor. The [place] [employer] recommends annual screening for lung cancer with low-dose computed tomography (LDCT) for people aged 50 to 80 years old who smoke or formerly smoked and have a 20-year or greater pack-year history. Screening is no longer discontinued even when a person has not smoked for 15 years. LDCT scan ordered. Cough/Dyspnea workup will be done as follows: Respiratory allergen panel for [facility] Serum IgE Serum total IgG, IgG1, IgG2, IgG3, IgG4 Myevl-2-pcffuhgnrl n phenotype and level TB stimulated gamma [...] week after methacholine challenge testing and LDCT [email or web address] Not available 04/08/2023 11:14:31 06/10/2023 06/10/2023 Assessment: [...] CPAP for JANET. Nicotine cessation counseling provided. [place] for quitting nicotine include getting ready, getting [...] in Quit For Life program Registering at [email or web address] Making a call to 5-052-FVMY-NOW ( ). A strong, clear, personalized message [...] failure or relapse. Patient can enroll in [facility]'s smoking cessation class through Geraldine Escobedo RN at . Enrollment is free and classes are held every wednesday of the month from 1:30 pm to 2:30 pm at the conference room next to the cafeteria on the ground floor. The [place] [employer] recommends annual screening for lung [...] further management. Follow-up: 1 year, June 2024 [email or web address] Not available 06/10/2023 13:04:05 Plan of Treatment Reminders Order Date Submit Date Provider Last Modified By Organization Details Last Modified Time Details Appointments None recorded. Lab alpha-1-ant itrypsin (aat) phenotype, serum 2023 024 [email or web address] [facility] (Lab), [address] [place], [address], 4 10:54:35 BNP (B-type natriuretic peptide), serum or plasma 2023 024 CHRIS [facility] (Lab), [address] [place], [address], 4 14:15:37 ige, total, serum 2023 024 [email or web address] 25 [facility] (Lab), [address] [place], [address], 4 10:54:35 tb (M tuberculosi s), ifn-gamma ne, blood 2023 024 [email or web address] 25 [facility] (Lab), [address] [place], [address], 4 10:54:35 eosinophil count, manual, blood (OBS) 2023 024 [email or web address] 25 [facility] (Lab), [address] [place], [address], 4 10:54:35 igg subclasses 1+2+3+4, serum 2023 024 [email or web address] [facility] (Lab), [address] [place], [address], 4 10:54:35 respiratory allergen panel - [facility] a 2023 024 [email or web address] 25 [facility] (Lab), [address] [place], [address], 4 10:54:35 respiratory allergen panel - [facility] b 2023 024 [email or web address] 25 [facility] (Lab), [address] [place], [address], 4 10:54:35 Referral None recorded. Procedures None recorded. Surgeries None recorded. Imaging LDCT, chest, for lung cancer screening 2023 025 [email or web address] [facility] (One Call Scheduling), [address] [place], [address], 5 15:35:54 LDCT, chest, for lung cancer screening - Nicotine smoke: 1 ppd 1971-presen t (quit 20 years in between) = 33 pack years; no auth required 2023 024 [facility] (One Call Scheduling), [address] [place], [address], 4 11:40:22 Medication Orders albuterol sulfate HFA 90 mcg/actuati on aerosol inhaler 2023 [facility]/Pharmacy #[id number], [address], [place], [address], 4 12:55:46 Trelegy Ellipta 100 mcg-62.5 mcg-25 mcg powder for inhalation 2023 024 [facility]/Pharmacy #[id number], [address], [place], [address], 4 12:55:46 Patient TargetsNo targets recorded. Patient Instructions Encounter Date Encounter Id Patient Instructions Last Modified By Organization Details Last Modified Time 04/08/2023 [id number] methacholine challenge* CHRIS Not available 06/11/2023 12:37:59 06/10/2023 [id number] complete PFT w/ post bronchodilator spirometry* [email or web address] Not available 05/17/2024 15:34:56 Reason for Referral None Reported. Results Created Date Observation Date Name Description Value Unit Range Abnormal Flag Note LastModifiedBy Organization Detail LastModifiedTime 04/13/19 24 04/19/2016 polys omnog radha, split night No observ ation record ed. BARCODE Not Available 2023 14:28:14 04/13/19 24 02/16/2017 compl ete PFT w/ post [facility] hodil ator zev metry * No observ ation record ed. BARCODE Not Available 2023 14:28:15 04/16/19 24 04/16/2023 LDCT, chest , for lung vibhace r alicia pierce No observ ation record ed. [address] [place], [address], 04/16/2023 14:57:37 06/11/19 24 06/10/2023 metha choli ne chall enge* No observ ation record ed. [facility] (One Call Scheduling) [address] [place], [address], 06/11/2023 12:37:59 Result Notes None recorded. Problems Name Problem SNOMED Code Status Onset Date Resolution Date Notes Provider Name and Address Organization Details Recorded Time Bipolar disorder 88566417 Active Not Available [facility] 3 07:30:17 Gastroeso phageal reflux disease 734018174 Active Not Available [facility] 3 07:30:17 Restless legs 47979037 Active Not Available [facility] 3 07:30:17 Depressiv e disorder 94482354 Active Not Available [facility] 3 07:30:17 Arthritis 8624763 Active Not Available [facility] 3 07:30:18 Hypoxemia 119393163 Active nocturnal Not Available [facility] 3 07:30:18 Body mass index 40+ - severely obese 760711149 Active 2016 Not Available [facility] 3 07:30:18 Hypothyro idism 49263417 Active Not Available [facility] 3 07:30:18 Obesity 696718079 Active Not Available [facility] 3 07:30:18 Obstructi ve sleep apnea syndrome 79157156 Active Not Available [facility] 3 07:30:18 Smoker 00091240 Active 2023 Eduardo Wilson MD [address] [facility], [address], [place], [address] , [facility] [employer] [facility] 4 11:05:46 Moderate persisten t asthma 846855289 Active 2023 Eduardo Wilson MD [address] [facility], [address], [place], [address] , [facility] 4 12:44:55 Notes:Medical History: Bipol ar depression [...] cervical discectomy fusion (ACDF) 1996 Esophageal dilatations 7746-1060 Left knee replacement 2005 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 Medical Equipment None Reported. Allergies Allergen ID Allergen Name Allergen Category Reaction Reaction Severity Criticality Documentation Date Start Date Code Code System Note Provider Name and Address Organization Details Recorded Time [address] [facility] medicatio n Not available Not available Not available 05/06/2022 05127 9 RxNorm Not Available [facility] 3 07:36:29 Medications Name Sig Start Date Stop Date Status Note LastModified by Organization Details LastModified Time cyclobenzap rine 10 mg tablet TAKE 1 TABLET EVERY NIGHT AT BEDTIME NEEDED active Not Available Not Available No t Available amoxicillin 500 mg capsule TK 1 C PO QID 04/26 completed Not Available Not Available Not Available furosemide 40 mg tablet active Not Available Not Available Not Available levothyroxi ne 175 mcg tablet TAKE 1 TABLET BY MOUTH EVERY DAY IN THE MORNING 06/22 completed Not Available Not Available Not Available neomycin-po lymyxin-hyd rocort 3.5 mg/mL-10,00 0 [...] TAKE 1 TABLET BY MOUTH EVERY DAY FOR 90 DAYS active Not Available Not Available No [...] hydrocodone 5 mg-acetamin ophen 325 mg tablet TAKE 1 TABLET BY MOUTH EVERY 6 HOURS NEEDED FOR PAIN active Not Available Not Available No t Available meloxicam 15 mg tablet TAKE 1 TABLET BY MOUTH EVERY DAY active Not Available Not Available No t Available sucralfate 1 gram tablet 07/30 completed Not Available Not Available Not Available lisinopril 20 mg tablet 1 TABLET TWICE A DAY active Not Available Not Available No t Available prednisone 20 mg tablet active Not Available Not Available Not Available alendronate 70 mg tablet TAKE 1 TABLET BY MOUTH ONE TIME PER WEEK active Not Available Not Available No t Available prednisone 5 mg tablet TAKE 1 TABLET BY MOUTH EVERY DAY 06/22 completed Not Available Not Available Not Available clindamycin HCl 150 mg capsule TAKE [...] prim 160 mg tablet TAKE 1 TABLET BY MOUTH TWICE A DAY FOR 7 DAYS 04/17 /2025 completed Not Available Not Available Not Available [...] TAKE 1 TABLET BY MOUTH EVERY DAY FOR 90 DAYS active Not Available Not Available No [...] Available Not Available Not Available levothyroxi ne 150 mcg tablet TAKE 1 TABLET BY MOUTH EVERY DAY active Not Available Not Available No t Available Advair Diskus 500 mcg-50 mcg/dose powder [...] 1 TABLET ONCE DAILY FOR 7 DAYS 06/22 completed Not Available Not Available Not Available methylpredn isolone 4 mg tablets in a dose pack TAKE 6 TABLETS ON DAY 1 DIRECTED ON PACKAGE AND DECREASE BY 1 TAB EACH DAY FOR A TOTAL OF 6 DAYS 06/22 completed Not Available Not Available Not Available albuterol sulfate HFA 90 mcg/actuati on aerosol inhaler INHALE 1 PUFF BY MOUTH EVERY 4 HOURS NEEDED active Not Available Not Available No t Available cefdinir 300 mg capsule TAKE 1 CAPSULE BY MOUTH TWICE A DAY FOR 7 DAYS 06/22 completed Not Available Not Available Not Available topiramate 100 mg tablet TAKE 1 TABLET BY MOUTH THREE TIMES A DAY active Not Available Not Available No t Available Zocor 40 mg tablet Take 1 tablet every day by oral route. 2012 active Not Available Not Available Not Avai lable risperidone 1 mg tablet TAKE 1 TABLET BY MOUTH EVERY NIGHT ONCE A DAY active Not Available Not Available No t Available ipratropium bromide 0.02 % solution for inhalation Inhale 2.5 mL 4 times a day by inhalatio n route for 30 days. 07/30 completed Not Available Not Available Not Available levothyroxi ne 112 mcg tablet TK 1 T PO QD 07/30 completed Not Available Not Available Not Available amoxicillin 875 mg-potassiu m clavulanate 125 mg tablet TK 1 [...] Not Available Not Available No t Available cholestyram ine (with sugar) 4 gram oral powder TAKE 1 SCOOP BY MOUTH TWICE A DAY NEEDED FOR DIARRHEA active Not Available Not Available No t Available metoprolol tartrate 25 mg tablet TAKE 1 TABLET BY MOUTH EVERY DAY active Not Available Not Available No t Available nitrofurant oin monohydrate /macrocryst als 100 mg capsule TAKE 1 CAPSULE BY MOUTH TWICE A DAY FOR 5 DAYS 06/22 completed Not Available Not Available Not Available duloxetine 60 mg capsule,del ayed release TAKE 1 CAPSULE BY MOUTH EVERY DAY FOR 90 DAYS active Not Available Not Available No [...] Available Not Available Not Available Flucelvax Quad (PF) 60 mcg (15 mcg x 4)/0.5 mL IM syringe ADM 0.5ML IM UTD 07/30 completed Not Available Not Available Not Available Trelegy Ellipta 100 mcg-62.5 mcg-25 mcg powder for inhalation INHALE 1 PUFF BY MOUTH ONCE DAILY active Not Available Not Available No t Available Vitals Date Recorded Heart rate Heart rate Respiratory rate Provider Name and Address Organization Details Last Updated DateTime 04/08/2023 60 /min 60 /min 15 /min Eduardo Wilson MD [address] [place], [address], [address], [facility] [employer] 04/08/2023 10:47:04 Date Recorded Body height Body mass index (BMI) Body weight Body temperature Oxygen saturation Oxygen saturation in Arterial blood by Pulse oximetry Systolic blood pressure Diastolic blood pressure Provider Name and Address Organization Details Last Updated DateTime 157.48 cm 49.1 kg/m2 255477. 47 g 98.1 [degF] 95 % 95 % 144 mm[Hg] 70 mm[Hg] Joan Anguiano MA [facility] [employer] [facility] 10:25:44 Date Recorded Oxygen saturation Oxygen saturation in Arterial blood by Pulse oximetry Heart rate Respiratory rate Provider Name and Address Organization Details Last Updated DateTime 06/10/2023 95 % 95 % 65 /min 14 /min Eduardo Wilson MD [address], [address], [place], [address], [facility] [employer] 4 12:52:41 Date Recorded Body height Body mass index (BMI) Body weight Body temperature Heart rate Systolic blood pressure Diastolic blood pressure Provider Name and Address Organization Details Last Updated DateTime 157.48 cm 48.5 kg/m2 903608. 7 g 97.7 [degF] 65 /min 128 mm[Hg] 66 mm[Hg] Joan Anguiano MA [employer] 4 12:38:12 Social History Question Answer Notes LastModified by Organizat ion Details LastModified Time Tobacco Smoking Status Current Every Day Smoker Joan Anguiano MA null, [facility] [employer] 04/08/2023 10:32:14 What Is Your Level Of Caffeine Consumption? [...] Air Filter? No Information not available 04/08/2023 Do You Have A Humidifier? No Information [...] PPD Information not available 04/08/2023 Do You Use Sunscreen Routinely? No Information not available 04/08/2023 Have You Recently Traveled Abroad? No Information not available 04/08/2023 Do You Have Any Dietary Restrictions? No Information not available 04/08/2023 Sex: Unknown Functional Status Question Answer Note LastModified by Organizat ion Details LastModified Time Do you use any illicit or recreational drugs? No Information not available 04/08/2023 Do you or have you ever used any other forms of tobacco or nicotine? No Information not available 04/08/2023 What is your level of alcohol consumption? None Information not available 04/08/2023 Have you been exposed to chemicals or toxins? not that she is aware of Information not available 04/08/2023 What is your occupation? disabled [id number] Information not available 05/06/2022 What is your exercise level? None Information not available 04/08/2023 Mental Status Question Answer Note LastModified by Organization D etails LastModified Time Do you feel stressed (tense, restless, nervous, or anxious, or unable to sleep at night)? [id number] Information not available 04/08/2023 Family History Relationship Description Onset Age of [...] virus, quadrivalent, preservative 7 completed Not Available [facility] 05/06/2022 07:36:24 influenza, unspecified formulation 7 completed Not Available [facility] 05/06/2022 07:36:24 influenza, unspecified formulation 6 completed Not Available [facility] 05/06/2022 07:36:25 Past Encounters Encounter ID Performer Location Encounter Start Date Encounter Closed Date Diagnosis/Indication Diagnosis SNOMED-CT Code Diagnosis ICD10 Code Diagnosis Note [id number] Eduardo Wilson MD [place] [address] 04/08/2023 09:55:11 04/08/2023 15:37:34 Dyspnea on exertion 74388393 R06.09 R05.3 T78.40XA D89.9 Smoker 98831258 F17.218 F17.219 Z87.311 [id number] Eduardo Wilson MD [facility] [address] [address] 06/10/2023 12:27:59 06/11/2023 08:56:05 Smoker 16246409 F17.218 F17.219 Z87.891 Moderate p ersistent asthma 333238205 J45.40 Health Concerns Section Related Observation LastModified by Organization Detai ls LastModified Time None Recorded Concern Status LastModified by Organization Details LastModified Time None Recorded Advance Directives Directive None Recorded Payers Insurance Date Sequence Insurance Name Policy Number Policy Church Covered Member ID Church Member ID Guarantor Name 06/16/2024 1 [facility] (MEDICARE REPLACEMENT HMO) [id number] Alisha Arguello [id number] Alisha Floyd Jos 06/19/2024 1 [facility] (MEDICARE REPLACEMENT/A DVANTAGE - PPO) [id number] Alisha Argeullo [id number] Alisha Arguello Notes Date Note Type Note [...] stairs Alleviating factors: rest Modified [employer] [place] (mMRC) Dyspnea Scale - Grade 2 Grade [...] years in between) = 33 pack years [place]: no Dye: no Dust mites: yes Mold: no Damp basement: no Wood burning stove: no Animal dander: 3 dogs Cockroaches: no Pollen: yes Arsenic: no Asbestos: no Beryllium: no Cadmium: no Chromium: no [place] smoke: no Diesel fumes: no Nickel: no [...] moderate chance of dozing. Eduardo Wilson MD [address] [place] [address], [address], [place] [facility] [email or web address] 04/08/2023 11:14:40 06/10/2023 text/html Primary care/Ref erring [...] up stairsAlleviating factors: rest Modified [employer] [place] (mMRC) Dyspnea Scale - Grade 2Grade 0 [...] chance of dozing. Eduardo Wilson MD [address] [facility], [facility] [address], [place], [address], [place] [facility] 06/10/2023 13:04:23 OBGyn Episode No OBEpisode recorded.
--- OUTSIDE RECORDS SUMMARY | 2024-08-24 12:44 | XMS_ITS | Clinical Summary ---
Author Organization [facility] Address [address] [place] [address] Care Team Providers Care Credit Adjuster Name Role Phone Unavailable Primary Care Provider [...] 7:37 AM CDT Height 162.6 cm (5' 4) 08/10/2017 7:37 AM CDT Body Mass Index 48.58 08/10/2017 7:37 AM CDT Plan of Treatment Health Maintenance Due Date Last Done Comments Colorectal Cancer Screening Colonoscopy (10 Years) 1955 Hepatitis C 08/18/1973 DTaP, Tdap and Td Vaccines ( 1 - Tdap) 08/18/1974 Mammogram Screening 1995 Zoster Vaccines (1 of 2) 08/18/2005 Pneumococcal Vaccine: 50+ Ye ars (2 of 2 - PCV) 03/18/2013 03/18/2012 Annual Medicare Wellness Visit 08/18/2020 Dexa Scan (General) 08/18/2020 COVID-19 Vaccine ( - 2023-2 5 season) [...]
--- OUTSIDE RECORDS SUMMARY | 2024-08-24 12:44 | XMS_ITS | Patient Health Record ---
Author Organization [facility] [employer] [facility] Address [address] [facility] [address] [facility] [address] [place] [address] Care Team Providers Care Home Health Nurse Name Role Phone Herve Wilson MD Primary Care Provider Ernestina Villasenor Unavailable [phone] Allergies Allergen (clinical drug ingredient) Drug/Non Drug Allergy documented on EMR Reaction Allergy Type Onset Date Status montelukast Singulair Unknown Drug Allergy 05/28/2023 Acti ve Reason For Referral No Information Medications Medication SIG (Take, Route, Frequency, Duration) Notes Start Date End Date Status risperiDONE 1 MG TAKE 1 TABLET BY MOUTH EVERY NIGHT ONCE A DAY for 90 Active predniSONE 5 MG Oral 05/28/2023 Unk nown [...] Ellipta 100-62.5-25 mcg Inhalation *Pick strength-form from [employer] for eRX* 05/28/2023 Unknown Levothyroxine Sodium 175 [...] Status Risk Notes Problem Bipolar II disorder (F31.81) Active confirmed Problem Restless legs syndrome (41745811) Restless legs syndrome (G25.81) Active confirmed Vital Signs Heart Rate 49 /min 05/12/2024 Height-cm 160.02 cm 05/12/2024 Blood pressure diastolic 78 mm Hg 05/12/2024 Weight-kg 117.94 kg 05/12/2024 Height 63.00 in 05/12/2024 Blood pressure systolic 143 mm Hg 05/12/2024 Weight 260 lbs 05/12/2024 BMI 46.05 kg/m2 05/12/2024 Encounters Encounter Location Date Provider Diagnosis [facility] [employer] [facility] [address] [facility] [address] [address] 09/24/2023 Ernestina Kurilla Bipolar II disorder F31.81 and Restless legs syndrome G25.81 [facility] [employer] [place] [address] [facility] [address] [address] 02/11/2024 Ernestina Kurilla Bipolar II disorder F31.81 ; Restless legs syndrome G25.81 and Other halfway (current) drug therapy Z79.899 [facility] [employer] [facility] [address] [facility] [address] [address] 05/12/2024 Ernestina Kurilla Bipolar II disorder F31.81 ; Restless legs syndrome G25.81 and Other halfway (current) drug therapy Z79.899 Assessments Encounter Date Diagnosis (ICD Code) Assessment Notes Treatment Notes Treatment Clinical Notes Section Notes 09/24/2023 Bipolar II disorder (ICD-10 - F31.81) 09/24/2023 Restless legs syndrome (ICD-10 - G25.81) 05/12/2024 Bipolar II disorder (ICD-10 - F31.81) [...] ORDERED LAST APT, ENCOURAGED TO COMPLETE 02/11/2024 Bipolar II disorder (ICD-10 - F31.81) [...] stable -cont ropinirole LABS ORDERED TODAY 02/11/2024 Restless legs syndrome (ICD-10 - G25.81) 1. bipolar 2 disorder stable; reporting seasonal depression, declines medication adjustment -cont duloxetine 60mg qd -cont wellbutrin 200mg bid -cont topamax 100mg TID -cont citalopram 20mg daily -cont risperidone 1mg qd ---consider medication decrease after winter season to eliminate polypharmacy as able 2. RLS stable -cont ropinirole LABS ORDERED TODAY 02/11/2024 Other halfway (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 bipolar 2 disorder stable; reporting seasonal depression, declines medication adjustment -cont duloxetine 60mg qd -cont wellbutrin 200mg bid -cont topamax 100mg TID -cont citalopram 20mg daily -cont risperidone 1mg qd ---consider medication decrease after winter season to eliminate polypharmacy as able 2. RLS stable -cont ropinirole LABS ORDERED TODAY 05/12/2024 Restless legs syndrome (ICD-10 - G25.81) LABS ORDERED LAST APT, ENCOURAGED TO COMPLETE 05/12/2024 Other intermediate accountant (current) drug therapy (ICD-10 - Z79.899) LABS [...] PANEL, STANDARD (7600) 02/11/2024 COMPREHENSIVE METABOLIC PANEL (38219) CBC (H/H, RBC, INDICES, WBC, PLT) (1759) 02/11/2024 HEMOGLOBIN A1c (496) 02/11/2024 VITAMIN B12/FOLATE, SERUM PANEL (7065) 1 04/13/2023 VITAMIN D,25-OH,TOTAL,IA (46486) 024 Next Appt Details Provider Name:Ernestina cramer, 09/19/2024 11:30:00 AM, [address] [facility] [address], [facility] [address], [place], [address], Insurance Providers Payer Name Payer Address Payer Phone Subscriber Number Group Number Insured Name Patient Relationship to Insured Coverage Start Date Coverage End Date [facility] Medicare Replacement/ Advantage - Ppo [address] [address] [place] [address] [id number] TISHA FLEMING Self - patient is the insured Medical (General) History Medical History History ICD Code Problems: Bipolar II disorder Restless legs , Surgical History Surgery Date(Month/Year) Any surgical history Tonsilectomy/adenoids 03/08/1974 Hysterectomy (27780) 03/08/1988
--- OUTSIDE RECORDS SUMMARY | 2024-08-24 12:44 | XMS_ITS | Clinical Summary ---
Author Organization [facility] Address [address] [facility] [place] [address] Care Team Providers Care Barrel Cooper Name Role Phone Unavailable Primary Care Provider Unavailabl e Source Comments [facility],non-owned Affiliates and Associated Physician Practices is amultiple site organization consisting of ambulatory clinics and hospital sitesin [place], [place], [place] and [place]. This disclosure is being madepursuant to the Care Everywhere program and may not contain all information available regarding this patient. 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
--- OUTSIDE RECORDS SUMMARY | 2024-08-24 12:44 | XMS_ITS | CONTINUITY OF CARE DOCUMENT ---
Author Name makayla, makayla Address Unknown Organization [facility] Address [address] [address] [place] [address] Phone [phone] Care Team Providers Care Supervisor Chlorine Liquefaction Name Role Phone Michael Garcia MD Unavailable Michael Garcia MD Unavailable SANTOS SORIA MD Unavailable [phone] PROBLEMS Condition Status Date Provider Notes Elevated [...] In-person encounter Office Visit Michael Garcia MD [place] [facility] Atrial fibrillation, paroxysmal, chronicChest pain - In-person encounter Office Visit Michael Garcia MD [place] [facility] Aortic insufficiencyHypertension - In-person encounter Office Visit Michael Garcia MD [place] [facility] Cardiology examinationCADCHF - In-person encounter Office Visit NELY BOWDEN MD [place] [facility] - In-person encounter Office Visit NELY BOWDEN MD [place] [facility] - In-person encounter Office Visit ENLY BOWDEN MD [place] [facility] - In-person encounter Office Visit NELY BOWDEN MD [place] [facility] - In-person encounter Office Visit NELY BOWDEN MD [place] [facility] - In-person encounter Office Visit NELY BOWDEN MD [place] [facility] - In-person encounter Office Visit NELY BODWEN MD [place] [facility] - In-person encounter Office Visit NELY BOWDEN MD [place] [facility] - In-person encounter Office Visit NELY BOWDEN MD [place] [facility] - In-person encounter Office Visit NELY BOWDEN MD [place] [facility] - In-person encounter Office Visit NELY BOWDEN MD [place] [facility] - In-person encounter Office Visit NELY BOWDEN MD [place] [facility] - In-person encounter Office Visit NELY BOWDEN MD [place] [facility] - In-person encounter Office Visit NELY BOWDEN MD [place] [facility] - In-person encounter Office Visit NELY BOWDEN MD [place] [facility] - In-person encounter Office Visit NELY BOWDEN MD [place] [facility] - In-person encounter Office Visit NELY BOWDEN MD [place] [facility] - In-person encounter Office Visit NELY BOWDEN MD [place] [facility] - In-person encounter Office Visit NELY BOWDEN MD [place] [facility] - In-person encounter Office Visit NELY BOWDEN MD [place] [facility] - In-person encounter Office Visit NELY BOWDEN MD [place] [facility] - In-person encounter Office Visit NELY BOWDEN MD [place] [facility] - In-person encounter Office Visit Piyush Espinosa MD [place] [facility] - In-person encounter Office Visit NELY BOWDEN MD [place] [facility] - In-person encounter Office Visit NELY BOWDEN MD [place] [facility] - In-person encounter Office Visit Piyush Espinosa MD [place] [facility] - In-person encounter Office Visit NELY BOWDEN MD [place] [facility] - In-person encounter Office Visit Piyush Espinosa MD [place] [facility] Arthritis, rheumatoid, chronic - In-person encounter Office Visit NELY BOWDEN MD [place] [facility] - In-person encounter Office Visit NELY BOWDEN MD [place] [facility] - In-person encounter Office Visit NELY BOWDEN MD [place] [facility] - In-person encounter Office Visit NELY BOWDEN MD [place] [facility] - In-person encounter Office Visit Piyush Espinosa MD [place] [facility] - In-person encounter Office Visit NELY BOWDEN MD [place] [facility] - In-person encounter Office Visit NELY BOWDEN MD [place] [facility] - In-person encounter Office Visit NELY BOWDEN MD [place] [facility] - In-person encounter Office Visit Piyush Espinosa MD [place] [facility] - In-person encounter Office Visit Piyush Espinosa MD [place] [facility] - In-person encounter Office Visit Piyush Espinosa MD [place] [facility] - In-person encounter Office Visit NELY BOWDEN MD [place] [facility] - In-person encounter Office Visit Piyush Espinosa MD [place] [facility] Anemia, iron deficiency - In-person encounter Office Visit NELY BOWDEN MD [place] [facility] - In-person encounter Office Visit NELY BOWDEN MD [place] [facility] - In-person encounter Office Visit NELY BOWDEN MD [place] [facility] - In-person encounter Office Visit NELY BOWDEN MD [place] [facility] - In-person encounter Office Visit Norma Arcos [place] [facility] - In-person encounter Office Visit NELY BOWDEN MD [place] [facility] DepressionUnspecified hypothyroidismOther and unspecified hyperlipidemiaAsthma, unspecifiedUrinary incontinenceUnilateral thyroid lobectomyAnemia, unspecified - In-person encounter Office Visit Norma Arcos [place] [facility] - In-person encounter Office Visit Denetrist [facility] - In-person encounter Office Visit NELY BOWDEN MD [place] [facility] - In-person encounter Office Visit Norma [facility] - In-person encounter Office Visit Norma [facility] - In-person encounter Office Visit Norma [facility] - In-person encounter Office Visit Norma [facility] - In-person encounter Office Visit Norma [facility] - In-person encounter Office Visit Norma [facility] - In-person encounter Office Visit Norma [facility] - In-person encounter Office Visit Norma [facility] - In-person encounter Office Visit Norma [facility] Office VITAL SIGNS Date Observation Value Provider Body Mass Index (Ratio) 42.39 kg/m2 Marya Garcia MD blood pressure, diastolic -1 mm[Hg] Kathy bernalLogshelia blood pressure, systolic 110 mm[Hg] Birgit Rsoashelia blood pressure, diastolic 64 mm[Hg] Marielle Anderson [...] Flores RN blood pressure, diastolic 73 mm[Hg] Ok miriam Deon blood pressure, systolic 169 mm[Hg] [...] Not Estab. platelet count 230 X10E3/UL [facility] [phone]/03/ 21 red blood cell distribution width 16.0 [...] [facility] 0-149 cholesterol, serum 149 mg/dL [facility] [phone]/03/ 21 alanine aminotransferase (SGPT), serum 18 1/L [...] [facility] 3.5-5.2 sodium, serum 143 mmol/L [facility] [phone]/03/ 21 urea nitrogen/creatinine ratio, serum 16 [facility] [...] 1.0 carbon dioxide, venous blood 22.0 mmol/L [facility] - 31.0 Low albumin, serum 4.2 g/[facility] 5.2 calcium, serum 9.1 mg/dL [facility] 8[facility] - 10.2 aspartate aminotransferase (SGOT), serum 19.0 1/L [facility] 0.0 - 32.0 alkaline phosphatase, serum 84.0 1/L [facility] 40.0 - 130.0 alanine aminotransferase (SGPT), serum 18.0 1/L [facility] 0.0 - 33.0 protein, total, serum 6.6 g/dL [facility] 6.6 - 8.7 bilirubin, serum, total 0.3 mg/dL [facility] 0.0 - 1.2 urea nitrogen, blood 12.0 mg/dL [facility] 8.0 - 23.0 blood glucose, random 90.0 mg/dL [facility] 74.0 - 99.0 red blood cell distribution width, size density 57.3 fL [facility] - immature granulocytes, percentage of total cells, blood 0.6 % [facility] - nucleated red blood cells as percent of blood leukocytes 0.0 % [facility] - red blood cell (erythrocyte) count, per high power field 0.0 10*3/UL [facility] - eosinophils as percent of [...] 13.0 - 150.0 anion gap, serum 12.7 [facility] - albumin/globulin ratio, serum 1.8 g/dL [facility] [...] 1.0 carbon dioxide, venous blood 22.0 mmol/L [facility] 23.0 - 31.0 Low albumin, serum 4.1 g/dL [facility] 3.5 - 5.2 calcium, serum 8.9 mg/dL [facility] 8.6 - 10.2 aspartate aminotransferase (SGOT), serum 17.0 1/L [facility] 0.0 - 32.0 alkaline phosphatase, serum 72.0 1/L [facility] 40.0 - 130.0 alanine aminotransferase (SGPT), serum 17.0 1/L [facility] 0.0 - 33.0 protein, total, serum 6.4 g/dL [facility] 6.6 - 8.7 Low bilirubin, serum, total 0.2 mg/dL [facility] 0[facility]0 - 1.2 urea nitrogen, blood 15.0 mg/dL [facility] 6.0 - 20.0 blood glucose, random 91.0 mg/dL [facility] 74.0 - 99.0 red blood cell distribution width, size density 46.9 fL [facility] - immature granulocytes, percentage of total cells, blood 0.3 % [facility] - nucleated red blood cells as percent of blood leukocytes 0.0 % [facility] - red blood cell (erythrocyte) count, per high power field 0.0 10*3/UL [facility] - eosinophils as percent of [...] as percent of blood leukocytes 19.2 % [facility] Lymphocytes 1.3 CELLS/UL [...] cell distribution width, size density 59.3 fL [facility] - immature granulocytes, percentage of total cells, blood 0.3 % [facility] - nucleated red blood cells as percent of blood leukocytes 0.0 % [facility] - red blood cell (erythrocyte) count, per [...] - 3.9 mean platelet volume 11.6 (?) [facility] - platelet count 250.0 THOUSAND/UL [facility] 100.0 [...] - 8.7 bilirubin, serum, total 0.2 mg/dL [facility] 0.0 - 1.2 urea nitrogen, blood 10.0 mg/dL [facility] 6.0 - 20.0 blood glucose, random 90.0 mg/dL [facility] 74.0 - 99.0 red blood cell distribution width, size density 55.3 fL [facility] - immature granulocytes, percentage of total cells, blood 0.7 % [facility] - nucleated red blood cells as percent of blood leukocytes 0.0 % [facility] - red blood cell (erythrocyte) count, per high power field 0.0 10*3/UL [facility] - eosinophils as percent of blood leukocytes 3.2 % [facility] - neutrophils as percent of blood leukocytes 58.6 % [facility] - Absolute Neutrophils 3.5 CELLS/UL [facility] 1.5 - 7.8 basophils as percent of blood leukocytes 0.5 % [facility] - Absolute Basophils 0.0 CELLS/UL [facility] 0.0 - 0.2 monocytes as percent of blood leukocytes 6.7 % [facility] - Absolute Monocytes 0.4 CELLS/UL [facility] 0.2 - 1.0 lymphocytes as percent of blood leukocytes 30.3 % [facility] - Absolute Lymphocytes 1.8 CELLS/UL [facility] 0.9 - 3.9 mean platelet volume 11.4 (?) [facility] - platelet count 252.0 THOUSAND/UL [facility] 100.0 - 400.0 mean corpuscular hemoglobin concentration, RBC 28.5 G/DL [facility] 31.0 - 38.0 Low mean corpuscular hemoglobin, [...] cell distribution width, size density 56.5 fL [facility] - immature granulocytes, percentage of total cells, blood 0.3 % [facility] - nucleated red blood cells as percent of blood leukocytes 0.0 % [facility] - red blood cell (erythrocyte) [...] as percent of blood leukocytes 15.7 % [facility] Lymphocytes 1.2 CELLS/UL [facility] 0.9 - 3.9 mean platelet volume 11.6 (?) [facility] - platelet count 269.0 THOUSAND/UL [facility] 100.0 [...] 150.0 iron binding capacity, total 230.0 (?) [facility] - iron, serum 38.0 ug/dL [facility] 25.0 - 156.0 red blood cell distribution width, size density 59.4 fL [facility] - immature granulocytes, percentage of total cells, blood 0.4 % [facility] - nucleated red blood cells as percent of blood leukocytes 0.0 % [facility] - red blood cell (erythrocyte) count, per high power field 0.0 10*3/UL [facility] - eosinophils as percent of blood leukocytes 5.6 % [facility] - neutrophils as percent of blood leukocytes 41.9 % [facility] - Absolute Neutrophils 1.9 CELLS/UL [facility] 1.5 - 7.8 basophils as percent of blood leukocytes 0.4 % [facility] - Absolute Basophils 0.0 CELLS/UL [facility] 0.0 - 0.2 monocytes as percent of blood leukocytes 11.4 % [facility] - Absolute Monocytes 0.5 CELLS/UL [facility] 0.2 - 1.0 lymphocytes as percent of blood leukocytes 40.3 % [facility] - Absolute Lymphocytes 1.8 CELLS/UL [facility] 0.9 - 3.9 mean platelet volume 11.5 (?) [facility] - platelet count 231.0 THOUSAND/UL [facility] 100.0 - 400.0 mean corpuscular hemoglobin concentration, RBC 28.3 G/DL [facility] 31.0 - 38.0 Low mean corpuscular hemoglobin, RBC 24.1 pg [facility] 25.0 - 35.0 Low mean corpuscular volume, RBC 85.2 fL [facility] 75.0 - 100.0 hematocrit, blood 37.5 % [...] cell distribution width, size density 62.4 fL [facility] - immature granulocytes, percentage of total cells, blood 0.4 % [facility] - nucleated red blood cells as percent of blood leukocytes 0.0 % [facility] - red blood cell (erythrocyte) count, per high power field 0.0 10*3/UL [facility] - eosinophils as percent of blood leukocytes 4.3 % [facility] - neutrophils as percent of blood leukocytes 64.7 % [facility] - Absolute Neutrophils 5.3 CELLS/UL [facility] 1.5 - 7.8 basophils as percent of blood leukocytes 0.2 % [facility] - Absolute Basophils 0.0 CELLS/UL [facility] 0.0 - 0.2 monocytes as percent of blood leukocytes 7.2 % [facility] Monocytes 0.6 CELLS/UL [facility] 0.2 - 1.0 lymphocytes as percent of blood leukocytes 23.2 % [facility] - Absolute Lymphocytes 1.9 CELLS/UL [facility] 0.9 - 3.9 mean platelet volume 11.3 (?) [facility] - platelet count 303.0 THOUSAND/UL [facility] 100.0 - 400.0 mean corpuscular hemoglobin concentration, RBC 27.8 G/DL [facility] 31.0 - 38.0 Low mean corpuscular hemoglobin, [...] cell distribution width, size density 65.1 fL [facility] - immature granulocytes, percentage of total cells, blood 0.5 % [facility] - nucleated red blood cells as percent of blood leukocytes 0.0 % [facility] - red blood cell (erythrocyte) count, per high power field 0.0 10*3/UL [facility] - eosinophils as percent of blood leukocytes 3.3 % [facility] - neutrophils as percent of blood leukocytes 50.6 % [facility] Neutrophils 3.4 CELLS/UL [facility] 1.5 - 7.8 basophils as percent of blood leukocytes 0.5 % [facility] - Absolute Basophils 0.0 CELLS/UL [facility] 0.0 - 0.2 monocytes as percent of blood leukocytes 8.7 % [facility] Monocytes Complains of indigestion/ heartburn; Denies nausea, vomiting, diarrhea, constipation , abdominal pain, jaundice, gas/bloating [facility] 0.2 - 1.0 lymphocytes as percent of blood leukocytes 36.4 % [facility] Lymphocytes 2.4 CELLS/UL [...] 25 mg tablet completed - Daisha John [employer] albuterol sulfate 90 mcg/actuation HFA aerosol inhaler active INHALE 1 PUFF BY MOUTH EVERY 4 HOURS NEEDED Daisha John NP omeprazole 40 mg capsule,delayed release(DR/EC) active Daisha John [employer] amlodipine 5 mg tablet active Daisha John [employer] alendronate 70 mg tablet active Daisha John [employer] levothyroxine 175 mcg tablet active TAKE 1 [...] ORAL TABLET completed 3 times daily - [facility] Trileptal 300 mg tablet active 1 [...] continue current therapy, antianginal therapy Renae Hernandez [employer] HRA, CV Assess/Plan, Angina (inactive) Management Plan continue current therapy Michael Garcia MD FAMILY HISTORY Family Member Condition Father Family History of Co marci Cancer Mother Family History of Ot her Diseases INSURANCE PROVIDERS Payer name Policy type / Coverage type [place] red libertarian ID AARP [facility] ADVANTAGE PLAN 2 (HMO-POS) Medicare [id number] ADVANCE DIRECTIVES Name Date DISCUSSED - NO [...] her cath, echo, and stress testing from [facility] echo to assess LV systolic function and valvular funciton Michael Garcia MD Cardiology:WIll obta in her cath, echo, and stress testing from [facility] Michael Garcia MD Hem/Onc Follow up:Th e patient complains of fatigue and weight gain. Given these symptoms, I will not decrease her levothyroxine any further despite her TSH still being suppressed. I will repeat TSH with reflext FT4 upon return visit. Orders: T SH reflex FT4 (70899) 9 9214 MOD Complex ([id number]) Piyush Espinosa MD Hem/Onc Follow up:Th e patient's iron stores remain repleted. She will conitnue every two month IV iron infusions. She will return in three months for follow up and repeat iron stores. Orders: S NOMED-CT: [id number] Current Medications Documented ([id number]) C BC (INCLUDES DIFF/PLT) (6399) C OMPREHENSIVE METABOLIC PANEL W/EGFR (92138) F ERRITIN (457) I EVER AND TOTAL IRON BINDING CAPACITY (7573) 9 9214 MOD Complex ([id number]) Piyush Espinosa MD Hem/Onc Follow up :T he patient has not had repeat thyroid studies. Recheck TSH. Defer adjustment in thyroid medication to Dr. Bowden. Orders: T SH + Free T4 ([id number]) C BC (INCLUDES DIFF/PLT) (6399) F ERRITIN (457) I EVER AND TOTAL IRON BINDING CAPACITY (7573) 9 9214 MOD Complex (CPT-[id number]) Piyush Espinosa MD Hem/Onc Follow up :T he patient's hemoglobin remains stable on a every two month IV iron infusion. She will continue current schedule. She will return in three months for follow up. Labs 1 week prior to office visit. Orders: C BC (INCLUDES DIFF/PLT) (6399) F ERRITIN (457) I EVER AND TOTAL IRON BINDING CAPACITY (7573) 9 9214 MOD Complex ([id number]) Piyush Espinosa MD Hem/Onc:I have decre ased [...] prior to office visit. Orders: S NOMED-CT: [id number] Current Medications Documented ([id number]) C BC (INCLUDES DIFF/PLT) (6399) C OMPREHENSIVE METABOLIC PANEL W/EGFR (46845) F ERRITIN (457) I EVER AND TOTAL IRON BINDING CAPACITY (7573) R ETICULOCYTE COUNT, MANUAL (8699) 9 9214 MOD Complex (CPT-56454) Piyush Espinosa MD Hem/Onc:Her Hgb has normalized. Her transferrin saturation is improved but still less than 20%. I will change her IV iron infusion to every two months. She will return in three months for follow up. Labwork 1 week prior to office visit. Orders: C BC (INCLUDES DIFF/PLT) (6399) C OMPREHENSIVE METABOLIC PANEL W/EGFR (25976) R ETICULOCYTE COUNT, MANUAL (8699) I EVER AND TOTAL IRON BINDING CAPACITY (7573) F ERRITIN (457) 9 9213 LTD. Complex (CPT-03217) Piyush Espinosa MD Hem/Onc Follow up :Anna [...] bone marrow biopsy results. Orders: S NOMED-CT: [id number] Current Medications Documented ([id number]) F ERRITIN (457) C BC (INCLUDES DIFF/PLT) (6399) I EVER AND TOTAL IRON BINDING CAPACITY (7573) R ETICULOCYTE COUNT (793) Piyuhs Espinosa MD Hem/Onc:The patient' s symptoms are [...] this plan. Orders: 9 9203 LTD. Complex (CPT-65068) Piyush Espinosa MD Date Name myocardial blood [...] Images Jasbir Duggan MD complet ed SNOMED-CT: [id number] Current Medications Documented Piyush Espinosa MD completed SNOMED-CT: 257041197214914 Current Medications Documented Piyush Espinosa MD completed SNOMED-CT: 460749093497853 Current Medications Documented Piyush Espinosa MD completed SNOMED-CT: 108131774258368 Current Medications Documented Piyush Espinosa MD completed SNOMED-CT: 566562697157128 Current Medications Documented Piyush Espinosa MD completed SNOMED-CT: 796410441454729 Current Medications Documented Piyush Espinosa MD completed ePrescribe - Check t his box if eRx is used NELY BOWDEN MD completed
[2024-08-24 12:57] LABS: Basophils Percent Auto 0.2 % (0.2-1.2); Eosinophils Absolute Auto 0.2 K/mm3 (0-0.3); Hematocrit 37.7 % (37.0-47.0); Hemoglobin 11.2 g/dL (12.0-15.0); Immature Granulocyte Absolute 0.02 K/mm3 (0.00-0.031); Immature Granulocyte Percent A 0.4 % (0-0.5); Lymphocytes Percent Auto 25.7 % (18.3-44.2); Mean Corpuscular HGB Conc 29.7 g/dl (32-36); Mean Corpuscular Hemoglobin 27.1 pg (26-34); Mean Corpuscular Volume 91.3 fl (80-100); Mean Platelet Volume 10.8 fl (7.4-10.4); Monocytes Absolute Auto 0.5 K/mm3 (0.1-0.6); Monocytes Percent Auto 9.5 % (2.6-8.5); Neutrophils Absolute Auto 3.1 K/mm3 (1.3-6.7); Neutrophils Percent Auto 61.2 % (45.5-73.1); Platelet Count Result 189 k/mm3 (150-375); Red Blood Count 4.13 M/mm3 (4.2-5.4); Red Cell Distribution Width 16.3 % (11.5-14.5); White Blood Count 5.1 K/mm3 (4.5-10.0)
--- NOTE | 2024-08-24 13:07 | ED.WEAKNESS ---
HPI - Weakness General Chief complaint: Weakness Stated complaint: WEAKNESS,R LEG PAIN S/P FALL Time Seen by Provider: 08/24/24 12:53 Source: patient Mode of arrival: ambulatory Limitations: no limitations History of Present Illness HPI Narrative: Patient is a 69-year-old female, with PMH of COPD, CHF, HTN, hypothyroidism, who presents the ED with report of weakness, right knee pain. Patient reports she has had several falls over the last few days. Has fallen onto her right knee. States she has not been able to bear weight over the past couple of days due to pain in her right knee. She lives at home by herself. She does have some friends that come and check on her. She does not feel she has been able to do much of anything over the past couple of days due to the weakness. Generalized weakness, denies focal weakness. Denies head injury. Reports mild shortness of breath recently. Denies cough, congestion, fevers, chest pain. Related Data Home Medications ?Medication ?Instructions ?Recorded ?Confirmed ?Last Taken ?Type albuterol sulfate 90 mcg/actuation 2 inh inhalation QID PRN Shortness 08/25/21 06/21/24 Unknown History aerosol inhaler Of Breath Or Wheezing alendronate 70 mg tablet 1 tablet PO WEEKLY 08/25/21 06/21/24 04/29/24 History amlodipine 5 mg tablet 5 mg PO DAILY 08/25/21 06/21/24 05/15/24 History atorvastatin 20 mg tablet 20 mg PO DAILY 08/25/21 06/21/24 04/30/24 History bupropion HCl 200 mg tablet,12 hr 200 mg PO BID 08/25/21 06/21/24 05/15/24 History sustained-release citalopram 20 mg tablet 20 mg PO DAILY 08/25/21 06/21/24 05/15/24 History duloxetine 60 mg capsule,delayed 60 mg PO DAILY 08/25/21 06/21/24 05/15/24 History release etanercept 50 mg/mL (1 mL) 1 ea subcut WEEKLY 08/25/21 06/21/24 04/29/24 History subcutaneous pen injector (Enbrel Capriceick) leflunomide 20 mg tablet 20 mg PO DAILY 08/25/21 06/21/24 04/30/24 History metoprolol tartrate 25 mg tablet 25 mg PO DAILY 08/25/21 06/21/24 05/15/24 History omeprazole 40 mg capsule,delayed 40 mg PO DAILY 08/25/21 06/21/24 04/30/24 History release risperidone 1 mg tablet 1 mg PO HS 08/25/21 06/21/24 04/30/24 History ropinirole 1 mg tablet 1 mg PO HS 08/25/21 06/21/24 Unknown History topiramate 100 mg tablet 100 mg PO TID 08/25/21 06/21/24 04/30/24 History levothyroxine 150 mcg tablet 150 mcg PO QAM 04/21/24 06/21/24 05/15/24 History prednisone 5 mg tablet 5 mg PO DAILY 04/21/24 06/21/24 05/15/24 History Allergies Allergy/AdvReac Type Severity Reaction Status Date / Time montelukast Allergy Other Verified 08/24/24 12:37 Review of Systems Review of Systems: All systems reviewed & are unremarkable except as noted in HPI. All systems reviewed & are unremarkable except as noted in HPI and below PMFSH Past Medical History Medical History Pulmonary hypertension Diastolic dysfunction Chronic obstructive pulmonary disease Rheumatoid arthritis Carpal tunnel syndrome Anxiety and depression Bipolar 1 disorder Hyperlipemia Hypertension Hypothyroidism Surgical History Surgical History Status post insertion of sacral nerve stimulator History of hysterectomy History of thyroidectomy History of total left knee replacement History of tonsillectomy Family History Family History Mother Hypertension COPD (chronic obstructive pulmonary disease) Lung cancer Father Hypertension COPD (chronic obstructive pulmonary disease) Lung cancer Grandparent Cerebrovascular accident maternal grandmother Son Diabetes mellitus Social History Social History Social History: Surrogate medical decision maker: Adam Arguello, son. Code status: Full code. Smoking packs per day: 1.25 Smoking cigarettes per day: 25.0 Years smoked: 45 Smoking pack-years: 56.25 Smoking status: Current every day smoker Tobacco type: cigarettes Additional smoking assessment comments: CURRENTLY SMOKING /2 PACK/DAY, TRYING TO QUIT Alcohol intake: former Alcohol use details: FORMER ALCOHOLIC QUIT 2009 Substance use: former Substance use type: marijuana Do You Feel Safe in your Home?: Yes Lack of Transportation: No Lack of Food: Never True Current Housing: I Have Housing Concerned About Future Housing: No Difficulty Paying Gas/Electric Bills: YES Difficulty Paying for Meds: YES Currently Unemployed: No Education: High School Diploma/GED Difficulty w/ Childcare or Family Care: No Living arrangements: alone Additional living arrangements comments: Lives alone. She has 1 son. 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 Spiritual care concerns: No Agree to blood products: Yes Exam Narrative: GENERAL: Chronically ill-appearing, mildly disheveled, morbidly obese with BMI of 43.7, non-toxic, in no acute distress. HEAD: Normocephalic, atraumatic. RESPIRATORY: Airway patent, respirations nonlabored. Decreased lung sounds in bases bilaterally. No significant wheezing. CARDIOVASCULAR: Bradycardic with regular rhythm without murmurs, rubs, or gallops. MUSCULOSKELETAL: Moves all extremities. No gross deformities. Mild diffuse tenderness throughout right anterior knee. Mild swelling noted. No significant peripheral pitting edema. SKIN: Warm, dry, normal color. Two small circular ulcerated lesions to left medial proximal thigh. NEURO: A&O X3. Speech clear. Cranial nerves II-XII grossly intact. Steady gait. No ataxic movements. Appreciable focal deficits. PSYCHIATRIC: Appropriate mood and affect. Normal interaction. Course Vital Signs Vital signs: Vital Signs Temperature 98.2 F 08/24/24 12:30 Pulse Rate 46 L 08/24/24 12:30 Respiratory Rate 23 H 08/24/24 12:30 Blood Pressure 144/68 H 08/24/24 12:30 Pulse Oximetry 98 08/24/24 12:30 Oxygen Delivery Room Air 08/24/24 12:30 Temperature 98.2 F 08/24/24 12:30 Pulse Rate 57 L 08/24/24 15:48 Respiratory Rate 20 08/24/24 15:48 Blood Pressure 132/91 H 08/24/24 15:48 Pulse Oximetry 99 08/24/24 15:48 Oxygen Delivery Room Air 08/24/24 12:30 MDM - Weakness MDM Narrative Medical decision making narrative: Patient presented to ED with multiple falls, generalized weakness, difficulty caring for herself at home. Does live at home alone. Patient mildly bradycardic upon arrival. This does appear consistent with previous records. Does not appear she is on any beta-blockers. EKG with sinus bradycardia. No concerning ischemic changes. Vitals are otherwise stable. Oxygen stable on room air. No appreciable focal deficits on exam. She is neurologically intact. CT brain negative for acute findings. X-ray of right knee also without acute findings. No fracture. No joint effusion. Chest x-ray was obtained showing possible pacing in left lower lung zone. Recommended CT. Chest CT was obtained and showing elevation of L hemidiaphragm. No mass. Laboratory studies without leukocytosis. Mild anemia at 11.2, consistent with previous records. Possibly hemoconcentrated. CMP unremarkable. Stable electrolytes. Stable kidney function. Troponin within normal range. BNP very minimally elevated to 548. UA is consistent with infection, positive nitrate, greater than 100 WBC, 4+ urine bacteria. Sent for culture. Blood cultures obtained. Rocephin started in the ED. Patient will be admitted for further evaluation and management of UTI, extreme weakness, failure to thrive type picture. Patient will likely need rehab versus custodial placement. She is agreeable to this. Will place care coordination consult. Discussed case with Aniya Smith, hospitalist, accepted patient for admission. Patient in agreement with plan. Medical Records Attestation: I reviewed the patient's medical records. Lab Data Attestation: I reviewed the patient's lab results. 08/24/24 12:49 08/24/24 12:49 Labs: Lab Results 08/24/24 08/24/24 Range/Units 12:49 13:18 WBC 5.1 (4.5-10.0) K/mm3 RBC 4.13 L (4.2-5.4) M/mm3 Hgb 11.2 L (12.0-15.0) g/dL Hct 37.7 (37.0-47.0) % MCV 91.3 (80-100) fl MCH 27.1 (26-34) pg MCHC 29.7 L (32-36) g/dl RDW 16.3 H (11.5-14.5) % Plt Count 189 (150-375) k/mm3 MPV 10.8 H (7.4-10.4) fl Immature Gran % (Auto) 0.4 (0-0.5) % Neut % (Auto) 61.2 (45.5-73.1) % Lymph % (Auto) 25.7 (18.3-44.2) % [place] % (Auto) 9.5 H (2.6-8.5) % Eos % (Auto) 3.0 (0-4.4) % Baso % (Auto) 0.2 (0.2-1.2) % Lymph # (Auto) 1.30 (0.9-3.2) K/mm3 [place] # (Auto) 0.5 (0.1-0.6) K/mm3 Eos # (Auto) 0.2 (0-0.3) K/mm3 Baso # (Auto) 0.0 (0.0-0.1) K/mm3 Abs Immat Gran (auto) 0.02 (0.00-0.031) K/mm3 Absolute Neuts (auto) 3.1 (1.3-6.7) K/mm3 Absolute Nucleated RBC 0.000 (0.0-0.012) K/mm3 Band Neutrophils % Not Reportable Nucleated RBC % 0.0 (0.0-0.2) % Platelet Estimate Adequate (Adequate) Hypochromasia 1+ Anisocytosis 1+ Ovalocytes 1+ Schistocytes None seen PT 14.3 (11.1-14.7) Seconds INR 1.1 APTT 26.8 (22.3-36.8) Seconds Sodium 140 (137-145) mmol/L Potassium 3.8 (3.4-5.0) mmol/L Chloride 110 H (98-107) mmol/L Carbon Dioxide 23 (22-30) mmol/L Anion Gap 7 (4-12) mmol/L BUN 19 H (7-17) mg/dL Creatinine 0.88 (0.7-1.0) mg/dL Estim Creat Clear Calc 64 ml/min Estimated GFR > 60 (59 - ) Glucose 94 (65-110) mg/dL Calcium 8.9 (8.4-10.2) mg/dL Total Bilirubin 0.2 (0.2-1.3) mg/dL AST 20 (14-36) U/L ALT 12 (6-35) U/L Alkaline Phosphatase 67 (38-126) U/L Total Creatine Kinase 70 (30-135) U/L Troponin I 0.016 (0.000-0.034) ng/mL NT-Pro-B Natriuret Pep 548 H (19.9-100) pg/mL Total Protein 6.5 (6.3-8.2) g/dL Albumin 3.4 L (3.5-5.1) g/dL Urine Color Dark yellow (Yellow) Urine Appearance Cloudy H (Clear) Urine pH 6.0 (5.0-9.0) Ur Specific [place] 1.028 (1.001-1.035) Urine Protein 2+ H (Negative) mg/dL Urine Glucose (UA) Negative (Negative) mg/dL Urine Ketones 1+ H (Negative) mg/dL Ur Blood (Man) 1+ H (Negative) Urine Nitrate Positive H (Negative) Urine Bilirubin 1+ H (Negative) Urine Urobilinogen 1.0 (<2.0) mg/dL Add Ur Microanalysis Reviewed Leukocyte Esterase Rfl 2+ H (Negative) PANTERA/UL Urine RBC 21-50 H (0-2) /hpf Urine WBC >100 H (0-3) /hpf Ur Squamous Epith Cells Few (Few) /hpf Urine Bacteria 4+ H /hpf Urine Casts 3-5 Imaging Data Attestation: I personally reviewed and interpreted this imaging study as follows: Radiologist's impression: ITS Impressions Head CT 08/24/24 14:00 IMPRESSION: No acute intracranial findings. Chest X-Ray 08/24/24 14:08 IMPRESSION: No definite acute cardiopulmonary pathology. Opacity in the left lower lobe which may be due to elevation of the diaphragm or atelectasis. CT evaluation advised. Knee X-Ray 08/24/24 14:11 IMPRESSION: No acute osseous abnormality right knee. Severe osteoarthritic changes. Chest CT 08/24/24 14:58 IMPRESSION: No acute cardiopulmonary pathology. Elevation of the left hemidiaphragm. No masses noted. Sliding hiatus hernia. ECG Data EKG #1: Attestation: I personally reviewed and interpreted this ECG as follows: ECG completion date: 08/24/24 ECG completion time: 12:33 EKG Interpretation: bradycardia (46), sinus rhythm and non-specific ST changes Discharge Plan Discharge Clinical Impression: Adult failure to thrive, Generalized weakness, Multiple falls UTI (urinary tract infection) Qualifiers: Urinary tract infection type: acute cystitis Hematuria presence: with hematuria Qualified Code(s): N30.01 - Acute cystitis with hematuria Patient Disposition: Still a Patient Condition: Stable
[2024-08-24 13:09] LABS: Alanine Aminotransferase 12 U/L (6-35); Albumin Level 3.4 g/dL (3.5-5.1); Alkaline Phosphatase 67 U/L (38-126); Anion Gap 7 mmol/L (4-12); Aspartate Amino Transferase 20 U/L (14-36); Bilirubin,Total 0.2 mg/dL (0.2-1.3); Blood Urea Nitrogen 19 mg/dL (7-17); Calcium 8.9 mg/dL (8.4-10.2); Carbon Dioxide 23 mmol/L (22-30); Chloride 110 mmol/L (98-107); Estimated CRCL calculation 64 ml/min; Estimated Glomerular Filt Rate > 60; Glucose 94 mg/dL (65-110); Potassium 3.8 mmol/L (3.4-5.0); Sodium 140 mmol/L (137-145); Total Protein 6.5 g/dL (6.3-8.2)
[2024-08-24 13:14] LABS: INR 1.1; Prothrombin Time 14.3 Seconds (11.1-14.7)
[2024-08-24 13:15] LABS: Partial Thromboplastin Time 26.8 Seconds (22.3-36.8)
[2024-08-24 13:22] LABS: Anisocytosis 1+; Hypochromasia 1+; Ovalocytes 1+; Platelet Estimate Adequate (Adequate); Schistocytes None Seen
[2024-08-24 13:25] LABS: NT Pro B Type Natriuretic Pept 548 pg/mL (19.9-100); Troponin I 0.016 ng/mL (0.000-0.034)
--- OUTSIDE RECORDS SUMMARY | 2024-08-24 13:25 | XMS_ITS | Clinical Summary ---
Author Organization [facility] Address [address] [place] [address] Care Team Providers Care Material Expeditor Name Role Phone Cy Mckinnon DO Unavailable [phone] Herve Wilson MD Primary Care Provider [phone] Allergies Active Allergy Reactions Criticality Noted Date [...] TABLET BY MOUTH EVERY DAY 30 tablet 08/22/19 25 Active predniSONE (DELTASONE) 5 mg tablet TAKE 1 TABLET BY MOUTH EVERY DAY 30 tablet 05/12/19 25 025 Discontinued Active Problems Problem Noted [...] are complete. Avoid live-vaccines unless reviewed with electrotype caster first. Osteopenia 10/08/2023 Assessment & Plan (10/08/2023 11:08 AM CDT): On fosamax since 2020. Due for repeat DEXA. Will do at [facility]. You need 1200mg calcium daily between [...] (10/30/2021): Added automatically from request for surgery [id number] Mechanical complication of e lectrode lead of implanted electronic neurostimulator of peripheral nerve 10/30/2021 Overview (10/30/2021): Added automatically from request for surgery [id number] Stress incontinence 07/04/2020 Overview (07/04/2020): Added automatically from request for surgery [id number] Primary nocturnal enuresis 07/04/2020 Overview (07/04/2020): Added automatically from request for surgery [id number] Dysphagia 03/27/2020 Overview (03/27/2020): Added automatically from request for surgery [id number] Special screening for malignant neoplasms, colon 03/27/2020 Overview (03/27/2020): Added automatically from request for surgery [id number] Anemia 02/22/2019 Overview (03/06/2024): Problems with anemia [...] intestine 07/22/2013 Dive rticulitis Bipolar I disorder ([facility]) 06/14/2012 Bipolar 1 disorder Rheumatoid arthritis (HCC) Hypothyroidism Hyperlipidemia HTN (hypertension) GERD (gastroesophageal reflux disease) Esophageal stenosis Osteoporosis Neuropathy Heart valve regurgitation CHF (congestive heart failure) ([facility]) history Bipolar 1 disorder ([facility]) Hiatal hernia Peptic ulcer disease Family History Medical History Relation Name Comments Colon cancer Father 2 Cancer -colon; Cause of : Cancer -colon Heart attack Maternal Grandmother 2 AR; C ause of : AR COPD Mother 2 COPD; Cause of : [...] on file Legal Sex Female 9:08 AM TREATMENT SPECIALIST Gender Identity Female 01/10/2021 2:50 PM CDT Sexual Orientation Not on file 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 on file Not on file [...] 9:39 AM CDT Height 160 cm (5' 3) 10/08/2023 9:39 AM CDT Body Mass Index [...] Discontinued 04/12/2020 Medical Devices Implanted Type Area Rolling Machine Operator Automatic Device Identifier Shelf Expiration Date Model / Serial / Lot Medtronic Neuro 3058 Interstim Ii 2inx1.7in 4 Electrode Perinatal Tech Sacral Nerve - [id number] - [id number] Implanted:Qty: 1 on 07/23/2020 by Husam Morales MD at [facility] Neurostimulator Right: Buttocks Medtronic Inc 07/03/2021 [id number] / [id number] / Description:Sub Q upper righ t buttocks [employer] [id number] Interstim 28cm Quadripolar Mri Protection Agent Neurostimulator - Sn/A - [id number] Implanted:Qty: 1 on 07/23/2020 by Husam Morales MD at [facility] Neurostimulator Right: Lumbar-Sac ral Spine Medtronic Inc 10/22/2021 [id number] / N/A / [id number] Description:Right Sacral-3 F oramin Medtronic Inc Generator Neurostimulator Bowel Bladder Recharge Free Interstim X [id number] - [id number] - [id number] Implanted:Qty: 1 on 12/02/2021 by Husam Morales MD at [facility] N/A: Buttocks Medtronic Inc 04/21/2023 [id number] / [id number] / Medtronic Inc Interstim 28cm Quadripolar Mri Protection Agent Neurostimulator [id number] - [id number] Implanted:Qty: 1 on 12/02/2021 by Husam Morales MD at [facility] N/A: Sacrum Med[employer]onic Inc 02/12/2023 [id number] / / [id number] Procedures Procedure Name Priority Date/Time Associated Diagnosis Comments COLONOSCOPY 04/12/2020 8:43 AM TREATMENT SPECIALIST DEXA AXIAL SKELETON BONE DENSITY 1 OR MORE SITES Schedule Routine, Read Routine (OP Routine) 04/05/2020 10:47 AM TREATMENT SPECIALIST Encounter for screening for osteoporosis SCREENING MAMMOGRAM BILATERAL W CRISTOBAL Schedule Routine, Read Routine (OP Routine) 04/24/2019 11:01 AM TREATMENT SPECIALIST Encounter for screening mammogram for malignant neoplasm of breast from Last 3 Months or Most Recently Relevant to Health Maintenance Results * COLONOSCOPY (04/12/2020 8:43 AM TREATMENT SPECIALIST) Anatomical Region Laterality Modality Other Narrative Procedure Note Jeniffer Almaraz MD - 04/12/2020 8:43 AM CST [facility] Patient Name: Alisha Arguello [...] 3 weeks. Procedure Code(s): --- Professional --- 18089, Colonoscopy, flexible; diagnostic, including collection of specimen(s) by brushing or washing,when performed (separate procedure) Diagnosis Code(s): --- Professional --- Z12.11, Encounter for screening for malignantneoplasm of colon K57.30, Diverticulosis of large intestine without perforation or abscess without bleeding CPT copyright 2019 [place]. All rights reserved. The codes documented in this report are preliminary and upon grain wafer machine operator reviewmay be revised to meet current compliance requirements. Naida Almaraz Jeniffer Almaraz M.D. 04/12/2020 9:44:11 AM This report has been electronically signed by the physician. Number of Addenda: 0 Note Initiated On: 04/12/2020 8:43 AM Jeniffer Almaraz MD ENDOSCOPY PROCEDURES Final Result * Dexa Axial Skeleton Bone Density 1 or 2 Site (04/05/2020 10:47 AM TREATMENT SPECIALIST) Anatomical Region Laterality Modality Body N/A Other 04/05/2020 10:5 8 AM TREATMENT SPECIALIST Impressions 04/05/2020 10:59 AM TREATMENT SPECIALIST According to the World Health Organization criteria, [...] signed by: Marika Huerta 04/05/2020 10:59 AM TREATMENT SPECIALIST COMPLETION DATE: 04/05/2020 11:00 AM ORDERING HEALTHCARE PROVIDER: TERRELL HDZ STUDY DESCRIPTION: DEXA AXIAL SKELETON BONE DENSITY 1 OR MORE SITES CLINICAL INDICATIONS: Z13.820. COMPARISON: None TECHNIQUE: Dual x-ray absorptiometry (DEXA) was performed using [employer] system. GENERAL GUIDELINES: According to WHO guidelines, [...] Dual x-ray absorptiometry (DEXA) was performed using [employer] system. GENERAL GUIDELINES: According to WHO guidelines, [...] by: Jeni Sherwood D.O. Terrell Hdz MD IMG DXA PROCEDURES Final Resu lt * Screening Mammogram Bilateral W Cristobal (04/24/2019 11:01 AM TREATMENT SPECIALIST) Anatomical Region Laterality Modality Breast Bilateral Mammography Narrative 04/25/2019 2:48 PM TREATMENT SPECIALIST Mammogram Technique: Bilateral Digital Breast Tomosynthesis, Bilateral C-view 2D Screening mammogram. Views obtained: bilateral craniocaudal and bilateral mediolateral oblique. Computer Aided Detection was performed. Mammogram Findings: The present examination has been compared to prior imaging studies performed at [facility] on 11/21/2014, 11/27/2015 and 12/09/2016. There [...] compared to prior imaging studies performed at [facility] on 11/21/2014, 11/27/2015 and 12/09/2016. There are scattered areas of fibroglandular density. There is no suspicious abnormality in either breast. Impression: Annual screening mammography is recommended. OVERALL FINAL ASSESSMENT: BI-RADS CATEGORY 1: Negative. us Self Screening Mammogram IMG MAMMO PROCEDURES Fi nal Result from Last 3 Months or Most Recently Relevant to Health Maintenance Insurance [facility] ADVANTAGE [facility] AETNA MEDICARE [facility] Address: [address] [place] [address] UHC MEDICARE ADVANTAGE [facility] Address: [address] [address] [place] [address] Advance Directives For more information, please contact: [phone] * Full Code (Latest Code Status on File) Date Activated Date Inactivated Comments 04/12/2020 8:25 AM 04/12/2020 4:12 PM Care Teams Material Expeditor Relationship Specialty Start Date End Date Herve Wilson MD [address] [place] [address] PCP - General Family Medicine 10/08/23 Cy Mckinnon DO [address] [place] [id number] Medical Oncologist/[facility] 10/05/17
--- OUTSIDE RECORDS SUMMARY | 2024-08-24 13:25 | XMS_ITS | Continuity of Care Document ---
Author Organization [facility] Address [address] [place] [address] Phone Care Team Providers Care Tool Inspector Name Role Phone Harris OD, Jeremias Unavailable [...] Diagnoses Date Provider Providers Copied on Encounter [facility], [address], [place], [place], [id number], [place] tel:[phone] SEC [facility] No Information 0-201 0 Harris OD Jeremias. [address] , [address], [place], [address], [place]. tel:[phone] [facility], [address] [place] [address] [address], [place], [place], [id number], [place] tel:[phone] SEC [facility] No Information Mar-2 5-200 9 Harris OD Jeremias. [facility] , [address], [place], [place], [facility], [place]. tel:[phone] Office/outpat ient Visit, Est [facility] Eye [facility], [address] [place] [address] [address], [place], [place], [address], [place] tel:[phone] SEC [facility] No Information Sep-1 0-200 8 Harris OD Jeremias. [address] [facility] , [address], [place], [place], [facility], [place]. tel:[phone] [facility], [address] [place] [address] [address], [place], [place], [address], [place] tel:[phone] [facility] No Information Mar-1 9-200 8 Harris OD Jeremias. [facility] , [address], [place], [facility], [place]. tel:[phone] Referring Provider: Rajan Holman, [address] [place], [place] [address]ate [address], [place], [place], [facility]. tel:[phone] [facility], [address] [place] [address] [address], [place], [place], [address], [place] tel:[phone] SEC [facility] No Information Mar-0 5-200 8 Candelaria Tolentino. [facility] , [address], [place], [facility], [place]. tel:[phone] [facility], [address] [place] [address] [address], [place], [place], [address], [place] tel:[phone] [facility] No Information Mar-0 4-200 8 Candelaria Tolentino. [address] [place], [place] [address]ate [address] , [address], [place], [place], [facility], [place]. tel:[phone] [facility], [address], [place], [place], [id number], [place] tel:[phone] SEC [facility] [place] No Information 8 Candelaria Tolentino. [address] [place], [place] [address]ate Center , [address], [place], [place], [facility], [place]. tel:[phone] Referring Provider: Rajan Holman, [facility] [address], [place], [facility]. tel:[phone] [facility], [address], [place], [place], [id number], [place] tel:[phone] [facility] [place] No Information 6200 7 Candelaria Tolentino. [address] [place], [place] [address]ate Center , [address], [place], [facility], [place]. tel:[phone] Referring Provider: Jeremias Holman, [facility] [address], [place], [facility]. tel:[phone] [facility], [address], [place], [place], [address], [place] tel:[phone] [facility] No Information 8-200 7 Harris OD Jeremias. [address] [place], [place] [address]ate Rei Alexis, [address], [place], [facility], [place]. tel:[phone] Referring Provider: Rajan Holman, [facility] [address], [place], [facility]. tel:[phone] [facility], [address], [place], [place], [address], [place] tel:[phone] [facility] No Information 7200 7 Candelaria Tolentino. [facility] Re[facility] Alexis, [address], [place], [facility], [place]. tel:[phone] Referring Provider: Jeremias Harris OD River, [address] [place] [address] [address], [place], [address]. tel:[phone] [facility], [address] [place] [address] [address], [place], [place], [id number], tel:[phone] SEC [facility] No Information 0 9-200 7 Doisy Edward. [address] [place] [address] , [address], [place], [address], . tel:[phone] Referring Provider: Jeremias Holman, [address] [place] [address] [address], [place], [address]. tel:[phone] [facility], [address] [place] [address] [address], [place], [place], [id number], tel:[phone] SEC [facility] No Information 3-200 7 Harris OD Jeremias. [address] [place] [address] , [address], [place], [address], [place]. tel:[phone] Family History Family Member Type Diagnosis Age At Onset No Information Payers Payer name Insurance type Covered alliance party ID Authoriza tirocio(s) [place] [id number] Social History Type Description Quantity Date Captured [...]
--- OUTSIDE RECORDS SUMMARY | 2024-08-24 13:26 | XMS_ITS | Encounter Summary ---
Author Organization [facility] Address [address] [place] [address] Phone Care Team Providers Care Primary Care Coordinator Name Role Phone Sarmad Bowden Primary Care Provider [phone] Cy Mckinnon DO Unavailable [phone] Mirna Rider MD Primary Care Provider [phone] Anitra Rothman MD Primary Care Provider [phone] Justen Milton MD Primary Care Provider [phone] Herve Wilson MD Primary Care Provider [phone] Encounter Details Date Type Department Care Team (Late st Contact Info) Description 06/18/2017 Orders Only [facility] ProviderRusty MD [address] [place] [address] Social History Tobacco Use Types Packs/Day Years Used Date Smoking Tobacco: Former Smokeless Tobacco: Never Comments:Smoking History Pac ks/day: 1 Packs Alcohol Use Standard Drinks/Week Comments No 0 (1 standard drink = 0.6 oz pur e alcohol) Comments Unknown Sex and Gender Information Value Date Recorded Sex Assigned at Not on file 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 Gender Identity Female 01/10/2021 2:50 PM CDT [...] on filedocumented in this encounter Care Teams Primary Care Coordinator Relationship Specialty Start Date [place] [address] [address] PCP - General 06/05/16 12/15/17 Mirna Rider MD [facility] [place] [address] PCP - General 12/16/17 04/23/19 Anitra Rothman MD [address] [place] [address] [place] [address] PCP - General 04/24/19 03/24/20 Justen Milton MD [address] [place] [address] PCP - General 03/25/20 10/07/23 Herve Wilson MD [address] [place] [address] PCP - General Family Medicine 10/08/23 Cy Mckinnon DO [address] [place] [address] Medical Oncologist/Bioassayist Hematology and Oncology 10/05/17 documented as of this encounter
--- OUTSIDE RECORDS SUMMARY | 2024-08-24 13:26 | XMS_ITS | Clinical Summary ---
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
--- OUTSIDE RECORDS SUMMARY | 2024-08-24 13:26 | XMS_ITS | Encounter Summary ---
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
--- OUTSIDE RECORDS SUMMARY | 2024-08-24 13:26 | XMS_ITS | CONTINUITY OF CARE DOCUMENT ---
Author Name makayla, makayla Address Unknown Organization [facility] Address [address] [place] [address] Phone [phone] Care Team Providers Care Seating Captain Name Role Phone Radha SINGH, Michael Unavailable [phone] Michael Garcia MD Unavailable [phone] SANTOS SORIA MD Unavailable [phone] PROBLEMS Condition Status Date Provider Notes Elevated glucose active NELY BOWDEN MD Hyperlipidemia active NELY BOWDEN MD Depression active NELY BOWDEN MD Unspecified hypothyroidism active GABRIELA SAMPSON MD Unilateral thyroid lobectomy active GLORIA MORGAN MD Anemia, unspecified active NELY BOWDEN MD Anemia, iron deficiency active Piyush mendez MD Arthritis, rheumatoid, chronic active Dhruv Espinosa MD Cardiology examination active Michael Garcia MD CAD active Michael Garcia MD CHF active Michael Garica MD Aortic insufficiency active Renae Hernandez NP Hypertension active Renae Hernandez NP Atrial fibrillation, paroxysmal, chronic active 06/09 Michael Garcia MD Chest pain active Michael Garcia MD Urinary incontinence active NELY BOWDEN MD Asthma, unspecified active NELY BOWDEN MD Other and unspecified hyperlipidemia active NELY BOWDEN MD ENCOUNTERS Date Type Provider Location Encounter Diag nosis - In-person encounter Office Visit Michael Garcia MD [place] [facility] Atrial fibrillation, paroxysmal, chronicChest pain - In-person encounter Office Visit Michael Garcia MD [facility] Aortic insufficiencyHypertension - In-person encounter Office Visit Michael Garcia MD [facility] Cardiology examinationCADCHF - In-person encounter Office Visit NELY BOWDEN MD [facility] - In-person encounter Office Visit NELY BOWDEN MD [facility] - In-person encounter Office Visit NELY BOWDEN MD [facility] - In-person encounter Office Visit NELY BOWDEN MD [facility] - In-person encounter Office Visit NELY BOWDEN MD [facility] - In-person encounter Office Visit NELY BOWDEN MD [facility] - In-person encounter Office Visit NELY BOWDEN MD [facility] - In-person encounter Office Visit NELY BOWDEN MD [facility] - In-person encounter Office Visit NELY BOWDEN MD [facility] - In-person encounter Office Visit NELY BOWDEN MD [facility] - In-person encounter Office Visit NELY BOWDEN MD [facility] - In-person encounter Office Visit NELY BOWDEN MD [facility] - In-person encounter Office Visit NELY BOWDEN MD [facility] - In-person encounter Office Visit NELY BOWDEN MD [facility] - In-person encounter Office Visit NELY BOWDEN MD [facility] - In-person encounter Office Visit NELY BOWDEN MD [facility] - In-person encounter Office Visit NELY BOWDEN MD [facility] - In-person encounter Office Visit NELY BOWDEN MD [facility] - In-person encounter Office Visit NELY BOWDEN MD [facility] - In-person encounter Office Visit NELY BOWDEN MD [facility] - In-person encounter Office Visit NELY BOWDEN [facility] - In-person encounter Office Visit NELY BOWDEN [facility] - In-person encounter Office Visit Piyush Espinosa MD [facility] - In-person encounter Office Visit NELY BOWDEN MD [facility] - In-person encounter Office Visit NELY BOWDEN MD [facility] - In-person encounter Office Visit Piyush Espinosa MD [facility] - In-person encounter Office Visit NELY BOWDEN MD [facility] - In-person encounter Office Visit Piyush Espinosa MD [facility] Arthritis, rheumatoid, chronic - In-person encounter Office Visit NEYL BOWDEN MD [facility] - In-person encounter Office Visit NELY BOWDEN MD [facility] - In-person encounter Office Visit NELY BOWDEN MD [facility] - In-person encounter Office Visit NELY BOWDEN MD [facility] - In-person encounter Office Visit Piyush Espinosa MD [facility] - In-person encounter Office Visit NELY BOWDEN MD [facility] - In-person encounter Office Visit NELY BOWDEN MD [facility] - In-person encounter Office Visit NELY BOWDEN MD [facility] - In-person encounter Office Visit Piyush Espinosa MD [facility] - In-person encounter Office Visit Piyush Espinosa MD [facility] - In-person encounter Office Visit Piyush Espinosa MD [facility] - In-person encounter Office Visit NELY BOWDEN MD [facility] - In-person encounter Office Visit Piyush Espinosa MD [facility] Anemia, iron deficiency - In-person encounter Office Visit NELY BOWDEN MD [facility] - In-person encounter Office Visit NELY BOWDEN MD [facility] - In-person encounter Office Visit NELY BOWDEN MD [facility] - In-person encounter Office Visit NELY BOWDEN MD [facility] - In-person encounter Office Visit Norma Arcos [facility] - In-person encounter Office Visit NELY BOWDEN MD [facility] DepressionUnspecified hypothyroidismOther and unspecified hyperlipidemiaAsthma, unspecifiedUrinary incontinenceUnilateral thyroid lobectomyAnemia, unspecified - In-person encounter Office Visit Norma Arcos [facility] - In-person encounter Office Visit [facility] - In-person encounter Office Visit NELY BOWDEN MD [facility] - In-person encounter Office Visit Norma [facility] - In-person encounter Office Visit Norma [facility] - In-person encounter Office Visit Norma [facility] - In-person encounter Office Visit Norma [facility] - In-person encounter Office Visit Norma [facility] - In-person encounter Office Visit Norma [facility] - In-person encounter Office Visit Norma [facility] - In-person encounter Office Visit Norma [facility] - In-person encounter Office Visit Norma [facility] Office VITAL SIGNS Date Observation Value Provider [...] Flores RN blood pressure, diastolic 73 mm[Hg] [place] miriam Deon blood pressure, systolic 169 mm[Hg] [...] Mass Index (Ratio) 47.37 kg/m2 [place] Romeniarvjoy weight E&M 276 [lb_av] Aditi Aguayoe lder [...] Not Estab. platelet count 230 X10E3/UL [facility] [phone]/03/ 21 red blood cell distribution width 16.0 [...] [facility] 0-149 cholesterol, serum 149 mg/dL [facility] [phone]/03/ 21 alanine aminotransferase (SGPT), serum 18 1/L [...] [facility] 3.5-5.2 sodium, serum 143 mmol/L [facility] [phone]/03/ 21 urea nitrogen/creatinine ratio, serum 16 [facility] [...] 1.0 carbon dioxide, venous blood 22.0 mmol/L [facility] 23.[facility] - 31.0 Low albumin, serum 4.2 g/[facility] - 5.2 calcium, serum 9.1 mg/dL [facility] 8.[facility] - 10.2 aspartate aminotransferase (SGOT), serum 19.0 1/L [facility] 0.0 - 32.0 alkaline phosphatase, serum 84.0 1/L [facility] 40.0 - 130.0 alanine aminotransferase (SGPT), serum 18.0 1/L [facility] 0.0 - 33.0 protein, total, serum 6.6 g/dL [facility] 6.6 - 8.7 bilirubin, serum, total 0.3 mg/dL [facility] 0.0 - 1.2 urea nitrogen, blood 12.0 mg/dL [facility] 8.0 - 23.0 blood glucose, random 90.0 mg/dL [facility] 74.0 - 99.0 red blood cell distribution width, size density 57.3 fL [facility] - immature granulocytes, percentage of total cells, blood 0.6 % [facility] - nucleated red blood cells as percent of blood leukocytes 0.0 % [facility] - red blood cell (erythrocyte) count, per high power field 0.0 10*3/UL [facility] - eosinophils as percent of blood [...] 13.0 - 150.0 anion gap, serum 12.7 [facility] - albumin/globulin ratio, serum 1.8 g/dL [...] 1.0 carbon dioxide, venous blood 22.0 mmol/L [facility] 23.0 - 31.0 Low albumin, serum 4.1 g/dL [facility] 3.5 - 5.2 calcium, serum 8.9 mg/dL [facility] 8.6 - 10.2 aspartate aminotransferase (SGOT), serum 17.0 1/L [facility] 0.0 - 32.0 alkaline phosphatase, serum 72.0 1/L [facility] 40.0 - 130.0 alanine aminotransferase (SGPT), serum 17.0 1/L [facility] 0.0 - 33.0 protein, total, serum 6.4 g/dL [facility] 6.6 - 8.7 Low bilirubin, serum, total 0.2 mg/dL [facility] 0.0 - 1.2 urea nitrogen, blood 15.0 mg/dL [facility] 6.0 - 20.0 blood glucose, random 91.0 mg/dL [facility] 74.0 - 99.0 red blood cell distribution width, size density 46.9 fL [facility] - immature granulocytes, percentage of total cells, blood 0.3 % [facility] - nucleated red blood cells as percent of blood leukocytes 0.0 % [facility] - red blood cell (erythrocyte) count, per high power field 0.0 10*3/UL [facility] - eosinophils as percent of blood [...] as percent of blood leukocytes 19.2 % [facility] Absolute Lymphocytes 1.3 CELLS/UL [facility] [...] cell distribution width, size density 59.3 fL [facility] - immature granulocytes, percentage of total cells, blood 0.3 % [facility] - nucleated red blood cells as percent of blood leukocytes 0.0 % [facility] - red blood cell (erythrocyte) count, [...] - 3.9 mean platelet volume 11.6 (?) [facility] - platelet count 250.0 THOUSAND/UL [facility] [...] - 8.7 bilirubin, serum, total 0.2 mg/dL [facility] 0.0 - 1.2 urea nitrogen, blood 10.0 mg/dL [facility] 6.0 - 20.0 blood glucose, random 90.0 mg/dL [facility] 74.0 - 99.0 red blood cell distribution width, size density 55.3 fL [facility] - immature granulocytes, percentage of total cells, blood 0.7 % [facility] - nucleated red blood cells as percent of blood leukocytes 0.0 % [facility] - red blood cell (erythrocyte) count, per high power field 0.0 10*3/UL [facility] - eosinophils as percent of blood leukocytes 3.2 % [facility] - neutrophils as percent of blood leukocytes 58.6 % [facility] - Absolute Neutrophils 3.5 CELLS/UL [facility] 1.5 - 7.8 basophils as percent of blood leukocytes 0.5 % [facility] - Absolute Basophils 0.0 CELLS/UL [facility] 0.0 - 0.2 monocytes as percent of blood leukocytes 6.7 % [facility] - Absolute Monocytes 0.4 CELLS/UL [facility] 0.2 - 1.0 lymphocytes as percent of blood leukocytes 30.3 % [facility] - Absolute Lymphocytes 1.8 CELLS/UL [facility] 0.9 - 3.9 mean platelet volume 11.4 (?) [facility] - platelet count 252.0 THOUSAND/UL [facility] 100.0 - 400.0 mean corpuscular hemoglobin concentration, RBC 28.5 G/DL [facility] 31.0 - 38.0 Low mean corpuscular [...] cell distribution width, size density 56.5 fL [facility] - immature granulocytes, percentage of total cells, blood 0.3 % [facility] - nucleated red blood cells as percent of blood leukocytes 0.0 % [facility] - red blood cell (erythrocyte) count, [...] as percent of blood leukocytes 15.7 % [facility] Absolute Lymphocytes 1.2 CELLS/UL [facility] 0.9 - 3.9 mean platelet volume 11.6 (?) [facility] - platelet count 269.0 THOUSAND/UL [facility] [...] 150.0 iron binding capacity, total 230.0 (?) [facility] - iron, serum 38.0 ug/dL [facility] 25.0 - 156.0 red blood cell distribution width, size density 59.4 fL [facility] - immature granulocytes, percentage of total cells, blood 0.4 % [facility] - nucleated red blood cells as percent of blood leukocytes 0.0 % [facility] - red blood cell (erythrocyte) count, per high power field 0.0 10*3/UL [facility] - eosinophils as percent of blood leukocytes 5.6 % [facility] - neutrophils as percent of blood leukocytes 41.9 % [facility] - Absolute Neutrophils 1.9 CELLS/UL [facility] 1.5 - 7.8 basophils as percent of blood leukocytes 0.4 % [facility] - Absolute Basophils 0.0 CELLS/UL [facility] 0.0 - 0.2 monocytes as percent of blood leukocytes 11.4 % [facility] - Absolute Monocytes 0.5 CELLS/UL [facility] 0.2 - 1.0 lymphocytes as percent of blood leukocytes 40.3 % [facility] - Absolute Lymphocytes 1.8 CELLS/UL [facility] 0.9 - 3.9 mean platelet volume 11.5 (?) [facility] - platelet count 231.0 THOUSAND/UL [facility] 100.0 - 400.0 mean corpuscular hemoglobin concentration, RBC 28.3 G/DL [facility] 31.0 - 38.0 Low mean corpuscular hemoglobin, RBC 24.1 pg [facility] 25.0 - 35.0 Low mean corpuscular volume, RBC 85.2 fL [facility] 75.0 - 100.0 hematocrit, blood 37.5 [...] cell distribution width, size density 62.4 fL [facility] - immature granulocytes, percentage of total cells, blood 0.4 % [facility] - nucleated red blood cells as percent of blood leukocytes 0.0 % [facility] - red blood cell (erythrocyte) count, per high power field 0.0 10*3/UL [facility] - eosinophils as percent of blood leukocytes 4.3 % [facility] - neutrophils as percent of blood leukocytes 64.7 % [facility] - Absolute Neutrophils 5.3 CELLS/UL [facility] 1.5 - 7.8 basophils as percent of blood leukocytes 0.2 % [facility] - Absolute Basophils 0.0 CELLS/UL [facility] 0.0 - 0.2 monocytes as percent of blood leukocytes 7.2 % [facility] - Absolute Monocytes 0.6 CELLS/UL [facility] 0.2 - 1.0 lymphocytes as percent of blood leukocytes 23.2 % [facility] - Absolute Lymphocytes 1.9 CELLS/UL [facility] 0.9 - 3.9 mean platelet volume 11.3 (?) [facility] - platelet count 303.0 THOUSAND/UL [facility] 100.0 - 400.0 mean corpuscular hemoglobin concentration, RBC 27.8 G/DL [facility] 31.0 - 38.0 Low mean corpuscular [...] cell distribution width, size density 65.1 fL [facility] - immature granulocytes, percentage of total cells, blood 0.5 % [facility] - nucleated red blood cells as percent of blood leukocytes 0.0 % [facility] - red blood cell (erythrocyte) count, per high power field 0.0 10*3/UL [facility] - eosinophils as percent of blood leukocytes 3.3 % [facility] - neutrophils as percent of blood leukocytes 50.6 % [facility] - Absolute Neutrophils 3.4 CELLS/UL [facility] 1.5 - 7.8 basophils as percent of blood leukocytes 0.5 % [facility] - Absolute Basophils 0.0 CELLS/UL [facility] 0.0 - 0.2 monocytes as percent of blood leukocytes 8.7 % [facility] Absolute Monocytes Complains of indigestion/ heartburn; Denies nausea, vomiting, diarrhea, constipation , abdominal pain, jaundice, gas/bloating [facility] 0.2 - 1.0 lymphocytes as percent of blood leukocytes 36.4 % [facility] Absolute Lymphocytes 2.4 CELLS/UL [facility] [...] 25 mg tablet completed - Daisha John FLOORING MECHANIC albuterol sulfate 90 mcg/actuation HFA aerosol inhaler active INHALE 1 PUFF BY MOUTH EVERY 4 HOURS NEEDED Daisha John NP omeprazole 40 mg capsule,delayed release(DR/EC) active Daisha John FLOORING MECHANIC amlodipine 5 mg tablet active Daisha John FLOORING MECHANIC alendronate 70 mg tablet active Daisha John FLOORING MECHANIC levothyroxine 175 mcg tablet active TAKE 1 [...] ORAL TABLET completed 3 times daily - [facility] Trileptal 300 mg tablet active 1 tablet [...] continue current therapy, antianginal therapy Renae Hernandez FLOORING MECHANIC HRA, CV Assess/Plan, Angina (inactive) Management Plan continue current therapy Michael Garcia MD FAMILY HISTORY Family Member Condition Father Family History of Co marci Cancer Mother Family History of Ot her Diseases INSURANCE PROVIDERS Payer name Policy type / Coverage type [place] red libertarian ID AARP [facility] ADVANTAGE PLAN 2 (HMO-POS) Medicare [id number] ADVANCE DIRECTIVES Name Date DISCUSSED - NO [...] her cath, echo, and stress testing from [facility] echo to assess LV systolic function and valvular funciton Michael Garcia MD Cardiology:WIll obta in her cath, echo, and stress testing from [facility] Michael Garcia MD Hem/Onc Follow up:Th e patient complains of fatigue and weight gain. Given these symptoms, I will not decrease her levothyroxine any further despite her TSH still being suppressed. I will repeat TSH with reflext FT4 upon return visit. Orders: T SH reflex FT4 ([id number]) 9 9214 MOD Complex (CPT-[id number]) Piyush Espinosa MD Hem/Onc Follow up:Th e patient's iron stores remain repleted. She will conitnue every two month IV iron infusions. She will return in three months for follow up and repeat iron stores. Orders: S NOMED-CT: [id number] Current Medications Documented ([id number]-[id number]) C BC (INCLUDES DIFF/PLT) (6399) C OMPREHENSIVE METABOLIC PANEL W/EGFR (71554) F ERRITIN (457) I EVER AND TOTAL IRON BINDING CAPACITY (7573) 9 9214 MOD Complex (CPT-[id number]) Piyush Espinosa MD Hem/Onc Follow up :T he patient has not had repeat thyroid studies. Recheck TSH. Defer adjustment in thyroid medication to Dr. Bowden. Orders: T SH + Free T4 ([id number]) C BC (INCLUDES DIFF/PLT) (6399) F ERRITIN (457) I EVER AND TOTAL IRON BINDING CAPACITY (7573) 9 9214 MOD Complex (CPT-00750) Piyush Espinosa MD Hem/Onc Follow up :T he patient's hemoglobin remains stable on a every two month IV iron infusion. She will continue current schedule. She will return in three months for follow up. Labs 1 week prior to office visit. Orders: C BC (INCLUDES DIFF/PLT) (6399) F ERRITIN (457) I EVER AND TOTAL IRON BINDING CAPACITY (7573) 9 9214 MOD Complex (CPT-[id number]) Piyush Espinosa MD Hem/Onc:I have decre ased [...] prior to office visit. Orders: S NOMED-CT: [id number] Current Medications Documented ([id number]) C BC (INCLUDES DIFF/PLT) (6399) C OMPREHENSIVE METABOLIC PANEL W/EGFR (57435) F ERRITIN (457) I EVER AND TOTAL IRON BINDING CAPACITY (7573) R ETICULOCYTE COUNT, MANUAL (8699) 9 9214 MOD Complex (CPT-[id number]) Piyush Espinosa MD Hem/Onc:Her Hgb has normalized. Her transferrin saturation is improved but still less than 20%. I will change her IV iron infusion to every two months. She will return in three months for follow up. Labwork 1 week prior to office visit. Orders: C BC (INCLUDES DIFF/PLT) (6399) C OMPREHENSIVE METABOLIC PANEL W/EGFR (78307) R ETICULOCYTE COUNT, MANUAL (8699) I EVER AND TOTAL IRON BINDING CAPACITY (7573) F ERRITIN (457) 9 9213 LTD. Complex (CPT-05939) Piyush Espinosa MD Hem/Onc Follow up :Anna [...] bone marrow biopsy results. Orders: S NOMED-CT: [id number] Current Medications Documented ([id number]) F ERRITIN (457) C BC (INCLUDES DIFF/PLT) [...] this plan. Orders: 9 9203 LTD. Complex (CPT-24895) Piyush Espinosa MD Date Name myocardial blood [...] Images Jasbir Duggan MD complet ed SNOMED-CT: [id number] Current Medications Documented Piyush Espinosa MD completed SNOMED-CT: [id number] Current Medications Documented Piyush Espinosa MD completed SNOMED-CT: [id number] Current Medications Documented Piyush Espinosa MD completed SNOMED-CT: [id number] Current Medications Documented Piyush Espinosa MD completed SNOMED-CT: 184807450093487 Current Medications Documented Piyush Espinosa MD completed SNOMED-CT: [id number] Current Medications Documented Piyush Espinosa MD completed ePrescribe - Check t his box if eRx is used NELY BOWDEN MD completed
--- OUTSIDE RECORDS SUMMARY | 2024-08-24 13:26 | XMS_ITS | Clinical Summary ---
Author Organization [facility] Address [address] [place] [address] Care Team Providers Care Administrative Processor Name Role Phone Unavailable Primary Care Provider Unavailabl e Source Comments [facility],non-owned Affiliates and Associated Physician Practices is amultiple site organization consisting of ambulatory clinics and hospital sitesin [place], [place], [place] and [place]. This disclosure is being madepursuant to the Care Everywhere program and may not contain all information available regarding this patient. 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
--- OUTSIDE RECORDS SUMMARY | 2024-08-24 13:26 | XMS_ITS | Referral Summary ---
Author Organization [facility] Address [address] [place] [address] Care Team Providers Care Manufacturing Engineer Paint Name Role Phone Cy Mckinnon DO Unavailable [phone] Herve Wilson MD Primary Care Provider [phone] Allergies Active Allergy Reactions Criticality Noted Date [...] are complete. Avoid live-vaccines unless reviewed with director workers compensation first. Osteopenia 10/08/2023 Assessment & Plan (10/08/2023 11:08 AM CDT): On fosamax since 2020. Due for repeat DEXA. Will do at [facility]. You need 1200mg calcium daily between [...] (10/30/2021): Added automatically from request for surgery [id number] Mechanical complication of e lectrode lead of implanted electronic neurostimulator of peripheral nerve 10/30/2021 Overview (10/30/2021): Added automatically from request for surgery [id number] Stress incontinence 07/04/2020 Overview (07/04/2020): Added automatically from request for surgery [id number] Primary nocturnal enuresis 07/04/2020 Overview (07/04/2020): Added automatically from request for surgery [id number] Dysphagia 03/27/2020 Overview (03/27/2020): Added automatically from request for surgery [id number] Special screening for malignant neoplasms, colon 03/27/2020 Overview (03/27/2020): Added automatically from request for surgery [id number] Anemia 02/22/2019 Overview (03/06/2024): Problems with anemia [...] on file Legal Sex Female 9:08 AM CAMP HEAD COUNSELOR Gender Identity Female 01/10/2021 2:50 PM CDT Sexual Orientation Not on file 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 on file Not on [...] on file Medical Devices Implanted Type Area Director Volunteer Services Device Identifier Shelf Expiration Date Model / Serial / Lot Medtronic Neuro 3058 Interstim Ii 2inx1.7in 4 Electrode Chief Deputy Coroner Sacral Nerve - [id number] - [id number] Implanted:Qty: 1 on 07/23/2020 by Husam Morales MD at [facility] Neurostimulator Right: Buttocks Medtronic Inc 07/03/2021 3058 / [id number] / Description:Sub Q upper righ t buttocks [employer] [id number] Interstim 28cm Quadripolar Mri Convict Guard Neurostimulator - Sn/A - [id number] Implanted:Qty: 1 on 07/23/2020 by Husam Morales MD at [facility] Neurostimulator Right: Lumbar-Sac ral Spine Medtronic Inc 10/22/2021 [id number] / N/A / [id number] Description:Right Sacral-3 F oramin Medtronic Inc Generator Neurostimulator Bowel Bladder Recharge Free Interstim X [id number] - [id number] - [id number] Implanted:Qty: 1 on 12/02/2021 by Husam Morales MD at [facility] N/A: Buttocks Med[employer]onic Inc 04/21/2023 [id number] / [id number] / Medtronic Inc Interstim 28cm Quadripolar Mri Convict Guard Neurostimulator [id number] - [id number] Implanted:Qty: 1 on 12/02/2021 by Husam Morales MD at [facility] N/A: Sacrum Medtronic Inc 02/12/2023 [id number] / / [id number] Procedures Procedure Name Priority Date/Time Associated Diagnosis Comments COLONOSCOPY 04/12/2020 8:43 AM CAMP HEAD COUNSELOR DEXA AXIAL SKELETON BONE DENSITY 1 OR MORE SITES Schedule Routine, Read Routine (OP Routine) 04/05/2020 10:47 AM CAMP HEAD COUNSELOR Encounter for screening for osteoporosis SCREENING MAMMOGRAM BILATERAL W CRISTOBAL Schedule Routine, Read Routine (OP Routine) 04/24/2019 11:01 AM CAMP HEAD COUNSELOR Encounter for screening mammogram for malignant neoplasm of breast from Last 3 Months or Most Recently Relevant to Health Maintenance Results * COLONOSCOPY (04/12/2020 8:43 AM CAMP HEAD COUNSELOR) Anatomical Region Laterality Modality Other Narrative Procedure [...] 3 weeks. Procedure Code(s): --- Professional --- 93968, Colonoscopy, flexible; diagnostic, including collection of specimen(s) by brushing or washing,when performed (separate procedure) Diagnosis Code(s): --- Professional --- Z12.11, Encounter for screening for malignantneoplasm of colon K57.30, Diverticulosis of large intestine without perforation or abscess without bleeding CPT copyright 2019 [employer]. All rights reserved. The codes documented in this report are preliminary and upon cpo reviewmay be revised to meet current compliance requirements. Naida Almaraz Jeniffer Almaraz M.D. 04/12/2020 9:44:11 AM This report has been electronically signed by the physician. Number of Addenda: 0 Note Initiated On: 04/12/2020 8:43 AM Jeniffer Almaraz MD ENDOSCOPY PROCEDURES Final Result * Dexa Axial Skeleton Bone Density 1 or 2 Site (04/05/2020 10:47 AM CAMP HEAD COUNSELOR) Anatomical Region Laterality Modality Body N/A Other 04/05/2020 10:5 8 AM CAMP HEAD COUNSELOR Impressions 04/05/2020 10:59 AM CAMP HEAD COUNSELOR According to the World Health Organization criteria, [...] signed by: Marika Huerta 04/05/2020 10:59 AM CAMP HEAD COUNSELOR COMPLETION DATE: 04/05/2020 11:00 AM ORDERING HEALTHCARE PROVIDER: TERRELL HDZ STUDY DESCRIPTION: DEXA AXIAL SKELETON BONE DENSITY 1 OR MORE SITES CLINICAL INDICATIONS: Z13.820. COMPARISON: None TECHNIQUE: Dual x-ray absorptiometry (DEXA) was performed using FilmLoop system. GENERAL GUIDELINES: According to WHO guidelines, [...] or equal to 3%. Procedure Note Jeni Sherwodo DO - 04/05/2020 COMPLETION DATE: 04/05/2020 11:00 AM ORDERING HEALTHCARE PROVIDER: TERRELL HDZ STUDY DESCRIPTION: DEXA AXIAL SKELETON BONE DENSITY 1 OR MORE SITES CLINICAL INDICATIONS: Z13.820. COMPARISON: None TECHNIQUE: Dual x-ray absorptiometry (DEXA) was performed using FilmLoop system. GENERAL GUIDELINES: According to WHO guidelines, [...] Mammogram Bilateral W Cristobal (04/24/2019 11:01 AM CAMP HEAD COUNSELOR) Anatomical Region Laterality Modality Breast Bilateral Mammography Narrative 04/25/2019 2:48 PM CAMP HEAD COUNSELOR Mammogram Technique: Bilateral Digital Breast Tomosynthesis, Bilateral C-view 2D Screening mammogram. Views obtained: bilateral craniocaudal and bilateral mediolateral oblique. Computer Aided Detection was performed. Mammogram Findings: The present examination has been compared to prior imaging studies performed at [facility] on 11/21/2014, 11/27/2015 and 12/09/2016. There are [...] compared to prior imaging studies performed at [facility] on 11/21/2014, 11/27/2015 and 12/09/2016. There are scattered areas of fibroglandular density. There is no suspicious abnormality in either breast. Impression: Annual screening mammography is recommended. OVERALL FINAL ASSESSMENT: BI-RADS CATEGORY 1: Negative. us Self Screening Mammogram IMG MAMMO PROCEDURES Fi nal Result from Last 3 Months or Most Recently Relevant to Health Maintenance Insurance [facility] AETNA MEDICARE GOLD AETNA MEDICARE GOLD [facility] MEDICARE ADVANTAGE [facility] MED[facility] Address: [address] [address] [place] [address] Advance Directives For more information, please contact: [phone] * Full Code (Latest Code Status on File) Date Activated Date Inactivated Comments 04/12/2020 8:25 AM 04/12/2020 4:12 PM Care Teams Manufacturing Engineer Paint Relationship Specialty Start Date End Date Herve Wilson MD [address] [place] [address] PCP - General Family Medicine 10/08/23 Cy Mckinnon DO [address] [place] [id number] Medical Oncologist/Information Technology Internship Hematology and Oncology 10/05/17
[2024-08-24] MEDS: SODIUM CHLORIDE 0.9% IV 500 ML 999 ML IV CONT (13:31)
--- NOTE | 2024-08-24 13:49 | PC.NURSE ---
Pt to CT @ 13:49
[2024-08-24 14:02] LABS: Add Urine Microscopic? YES; Appearance Urine Cloudy (Clear); Bacteria Urine 4+ /hpf; Bilirubin Urine 1+ (Negative); Blood Urine 1+ (Negative); Color Urine Dark Yellow (Yellow); Glucose Urine UA Negative (Negative); Ketones Urine 1+ mg/dL (Negative); Leukocyte Esterase Ur 2+ LEU/UL (Negative); Need Manual Microscopic Reviewed; Nitrate Urine Positive (Negative); Protein Urine 2+ mg/dL (Negative); RBC Urine 21-50 /hpf (0-2); Specific Grav Ur 1.028 (1.001-1.035); Squamous Epithelial Cell Urine Few /hpf (Few); WBC Urine >100 /hpf (0-3)
[2024-08-24 14:18] VITALS: BP 156/65; PULSE 51; RESP 23; O2SAT 100
[2024-08-24 14:29] LABS: Creatine Kinase 70 U/L (30-135)
[2024-08-24 15:48] VITALS: BP 132/91; PULSE 57; RESP 20; O2SAT 99
--- NOTE | 2024-08-24 16:34 | PC.NURSE ---
This RN called dietary and ordered a dinner tray for pt at this time.
[2024-08-24] MEDS: SODIUM CHLORIDE 0.9% IV 1,000 ML 999 ML IV CONT (16:55)
--- NOTE | 2024-08-24 17:10 | P.HP_ITS ---
H&P: HPI History of Present Illness Date/Time: 08/24/24 17:10 Chief Complaint: Weakness Narrative: 69-year-old patient with past medical history of COPD, CHF, hypertension, hypothyroidism and bipolar presents the hospital with weakness, falls and right knee pain. Patient complains of generalized weakness increasing over the last week from baseline she is finding it hard care for herself. Upon asking the patient more questions she states that she knows she had numbness and tingling of her right leg and arm about 3 days ago. She states that she has not got it checked out. Lab work shows anemia at 11.2, chloride 110, BUN of 19, approach BNP of 548, UA shows cloudy positive for nitrates 2+ leukocyte esterase over 100 wbc's and 4+ bacteria. Chest CT shows no acute cardiopulmonary process, right knee x-ray with no acute process. Patient was started on Rocephin and admitted for UTI. Review of Systems Review of Systems: 12 systems were reviewed and are negativ e except for as per HPI. [facility] Past Medical History Medical History Pulmonary hypertension Diastolic dysfunction Chronic obstructive pulmonary disease Rheumatoid arthritis Carpal tunnel syndrome Anxiety and depression Bipolar 1 disorder Hyperlipemia Hypertension Hypothyroidism Surgical History Surgical History Status post insertion of sacral nerve stimulator History of hysterectomy History of thyroidectomy History of total left knee replacement History of tonsillectomy Family History Family History Mother Hypertension COPD (chronic obstructive pulmonary disease) Lung cancer Father Hypertension COPD (chronic obstructive pulmonary disease) Lung cancer Grandparent Cerebrovascular accident maternal grandmother Son Diabetes mellitus Social History Social History Social History: Surrogate medical decision maker: Adam Arguello, son. Code status: Full code. Smoking packs per day: 1.25 Smoking cigarettes per day: 25.0 Years smoked: 45 Smoking pack-years: 56.25 Smoking status: Current every day smoker Tobacco type: cigarettes Additional smoking assessment comments: CURRENTLY SMOKING 1/2 PACK/DAY, TRYING TO QUIT Alcohol intake: former Alcohol use details: FORMER ALCOHOLIC QUIT 2009 Substance use: former Substance use type: marijuana Do You Feel Safe in your Home?: Yes Lack of Transportation: No Lack of Food: Never True Current Housing: I Have Housing Concerned About Future Housing: No Difficulty Paying Gas/Electric Bills: YES Difficulty Paying for Meds: YES Currently Unemployed: No Education: High School Diploma/GED Difficulty w/ Childcare or Family Care: No Living arrangements: alone Additional living arrangements comments: Lives alone. She has 1 son. 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 Spiritual care concerns: No Agree to blood products: Yes Meds Home Medications and Allergies Home Medications ?Medication ?Instructions ?Recorded ?Confirmed ?Type albuterol sulfate 90 mcg/actuation 2 inh inhalation QID PRN Shortness 08/25/21 08/24/24 History aerosol inhaler Of Breath Or Wheezing alendronate 70 mg tablet 1 tablet PO WEEKLY 08/25/21 08/24/24 History amlodipine 5 mg tablet 5 mg PO DAILY 08/25/21 08/24/24 History atorvastatin 20 mg tablet 20 mg PO DAILY 08/25/21 08/24/24 History bupropion HCl 200 mg tablet,12 hr 200 mg PO BID 08/25/21 08/24/24 History sustained-release citalopram 20 mg tablet 20 mg PO DAILY 08/25/21 08/24/24 History duloxetine 60 mg capsule,delayed 60 mg PO DAILY 08/25/21 08/24/24 History release etanercept 50 mg/mL (1 mL) 1 ea subcut WEEKLY 08/25/21 08/24/24 History subcutaneous pen injector (Enemir Crandall) leflunomide 20 mg tablet 20 mg PO DAILY 08/25/21 08/24/24 History metoprolol tartrate 25 mg tablet 25 mg PO DAILY 08/25/21 08/24/24 History omeprazole 40 mg capsule,delayed 40 mg PO DAILY 08/25/21 08/24/24 History release risperidone 1 mg tablet 1 mg PO HS 08/25/21 08/24/24 History ropinirole 1 mg tablet 1 mg PO HS 08/25/21 08/24/24 History topiramate 100 mg tablet 100 mg PO TID 08/25/21 08/24/24 History dextromethorphan-guaifenesin 30 1 tab PO Q12HR #30 tabs 08/27/21 08/24/24 Rx mg-600 mg tablet extended [id number] hr (Mucinex DM) levothyroxine 150 mcg tablet 150 mcg PO QAM 04/21/24 08/24/24 History prednisone 5 mg tablet 5 mg PO DAILY 04/21/24 08/24/24 History hydrocodone 5 mg-acetaminophen 325 1 tablet PO Q6H PRN pain #20 tabs 05/01/24 08/24/24 Rx mg tablet Allergies Allergy/AdvReac Type Severity Reaction Status Date / Time montelukast Allergy Other Verified 08/24/24 18:49 Vital Signs Vital Signs - 24 hr 08/24/24 12:30 08/24/24 12:37 08/24/24 14:18 Temperature 98.2 F Pulse Rate 46 L 46 L 51 L Respiratory Rate 23 H 23 H Blood Pressure 144/68 H 156/65 H Pulse Oximetry 98 100 Oxygen Delivery Room Air 08/24/24 15:48 Temperature Pulse Rate 57 L Respiratory Rate 20 Blood Pressure 132/91 H Pulse Oximetry 99 Oxygen Delivery Exam Narrative: General: well appearing, appears stated age. HEENT: normocephalic, atraumatic. Mucous membranes moist. EOMI, PERRLA, bilateral sclera anicteric, no conjunctival injection. Neck supple without JVD, lymphadenopathy, or bruit. Respiratory: clear to ascultation bilaterally. No rales/rhonic/wheezes. Cardiovascular: Regular rate and rhythm, normal S1-S2 upon ascultation. No murmurs, rubs, or clicks. PMI is nondisplaced, capillary refill less than 3 second. Abdomen: Soft, round, no pulsatile masses, nondistended and nontender. No rebound, no guarding. No CVA tenderness, no hepatosplenomegaly. Bowel sounds present to all four quadrants. No high pitch or tinkling sounds, resonant to percussion. Extremities: No cyanosis, clubbing, or edema present. Pulses are palpable 2/2. Active ROM to all four extremities. Neuro: Alert and orientated x 4. PERRLA. Cranial nerves 2-12 intact without focal deficit. Skin: Warm, dry, and intact, without rash, erythema, or lesion. Psych: pleasant, cooperative, normal speech, normal affect, no hallucinations, no dysarthia H&P: Results Labs Labs: Short CBC 08/24/24 Range/Units 12:49 WBC 5.1 (4.5-10.0) K/mm3 Hgb 11.2 L (12.0-15.0) g/dL Hct 37.7 (37.0-47.0) % Plt Count 189 (150-375) k/mm3 BMP 08/24/24 12:49 Sodium 140 Potassium 3.8 Chloride 110 H Carbon Dioxide 23 BUN 19 H Creatinine 0.88 Glucose 94 Calcium 8.9 Cardiac Enzymes 08/24/24 Range/Units 12:49 Total Creatine Kinase 70 (30-135) U/L Troponin I 0.016 (0.000-0.034) ng/mL Liver Function 08/24/24 Range/Units 12:49 Total Bilirubin 0.2 (0.2-1.3) mg/dL AST 20 (14-36) U/L ALT 12 (6-35) U/L Alkaline Phosphatase 67 (38-126) U/L Albumin 3.4 L (3.5-5.1) g/dL Urine 08/24/24 Range/Units 13:18 Urine Color Dark yellow (Yellow) Urine Appearance Cloudy H (Clear) Urine pH 6.0 (5.0-9.0) Ur Specific [place] 1.028 (1.001-1.035) Urine Protein 2+ H (Negative) mg/dL Urine Glucose (UA) Negative (Negative) mg/dL Assessment and Plan Assessment and plan (1) Multiple falls: Code(s): R29.6 - Repeated falls Status: Acute Assessment and Plan: Failure thrive versus infection versus deconditioning versus other PT OT evaluation ABX for UTI Anemia workup (2) UTI (urinary tract infection): Qualifiers: Hematuria presence: with hematuria Urinary tract infection type: acute cystitis Qualified Code(s): N30.01 - Acute cystitis with hematuria Code(s): N39.0 - Urinary tract infection, site not specified Status: Acute Assessment and Plan: IV Rocephin IVF Culture and sensitivity pending (3) Generalized weakness: Code(s): R53.1 - Weakness Status: Acute Assessment and Plan: See plan above (4) Anemia: Code(s): D64.9 - Anemia, unspecified Status: Acute Assessment and Plan: Anemia workup No signs of acute bleeding Transfuse for hemoglobin less than 7, no need to transfuse at this time (5) Rheumatoid arthritis: Code(s): M06.9 - Rheumatoid arthritis, unspecified Status: Acute Assessment and Plan: Okay to restart methotrexate and prednisone (6) Hypertension: Code(s): I10 - Essential (primary) hypertension Status: Acute Assessment and Plan: Continue Norvasc and metoprolol (7) CHF (congestive heart failure): Code(s): I50.9 - Heart failure, unspecified Status: Acute Assessment and Plan: Patient does not appear to be on diuretics, she has 2+ pedal edema Echocardiogram pending (8) Hyperlipemia: Code(s): E78.5 - Hyperlipidemia, unspecified Status: Acute Assessment and Plan: Home Lipitor (9) Hypothyroidism: Code(s): E03.9 - Hypothyroidism, unspecified Status: Acute Assessment and Plan: Home Synthroid (10) Paresthesia: Code(s): R20.2 - Paresthesia of skin Status: Acute Assessment and Plan: Last known well [address] with no acute finding Aspirin MRI for the morning Quality VTE Prophylaxis VTE prophylaxis: mechanical ordered and pharmacologic ordered Hospitalist [facility] Advance Care Plan I have confirmed that the patient's Advanced Care Plan is present, code status is documented, or surrogate decision maker is listed in patient medical record.: Yes Medication Reconciliation I have utilized all available resources to obtain, update and review the patients current medications (includes all prescriptions, OTC, herbals, cannabis, and nutritional supplements).: Yes
--- NOTE | 2024-08-24 18:00 | ADMGEN ---
This patient, Alisha Arguello, was admitted to Medical Room 347-. Patient/family oriented to hospital policies and general routines including ID bracelet, bed and alarms, visiting hours, pain management, procedures, bathroom and other care routines, personal items, smoking policy, room service/diet, and visiting hours. Information on how to activate the Rapid Response Team has been discussed. Patient/Family are encouraged to report perceived risks to care and to ask questions if they do not understand what they are told or what they should do.
[2024-08-24 18:02] VITALS: BMI 41.9
[2024-08-24] MEDS: SODIUM CHLORIDE 0.9% IV 1,000 ML 75 ML IV CONT (18:59)
[2024-08-24 20:00] VITALS: PULSE 58
[2024-08-24] MEDS: PANTOPRAZOLE 40 MG TABLET PO (20:48)
[2024-08-24] MEDS: buPROPion HCL SR (12HR) 100 MG TABCR 200 MG PO (20:48)
[2024-08-24] MEDS: risperiDONE 1 MG TABLET PO (20:49)
[2024-08-24] MEDS: rOPINIRole HCL 1 MG TABLET PO (20:49)
[2024-08-24 21:46] VITALS: BP 135/62; PULSE 50; RESP 16; TEMP 36.6; O2SAT 95
[2024-08-24] MEDS: ASPIRIN 81 MG CHEWABLE TABLET 324 MG PO (22:48)
[2024-08-25] VITALS (9 sets, daily range): BP systolic 150–175; BP diastolic 59–63; PULSE 51–63; RESP 16–18; TEMP 36.2–36.6; O2SAT 95–96
[2024-08-25] MEDS: LEVOTHYROXINE SODIUM 150 MCG TABLET PO (05:41)
[2024-08-25 05:55] LABS: Basophils Percent Auto 0.2 % (0.2-1.2); Eosinophils Absolute Auto 0.1 K/mm3 (0-0.3); Eosinophils Percent Auto 2.7 % (0-4.4); Hematocrit 35.4 % (37.0-47.0); Hemoglobin 10.1 g/dL (12.0-15.0); Immature Granulocyte Absolute 0.02 K/mm3 (0.00-0.031); Immature Granulocyte Percent A 0.4 % (0-0.5); Immature Platelet Fraction Pct 4.1 % (0.9-11.2); Lymphocytes Percent Auto 24.7 % (18.3-44.2); Mean Corpuscular HGB Conc 28.5 g/dl (32-36); Mean Corpuscular Hemoglobin 26.9 pg (26-34); Mean Corpuscular Volume 94.4 fl (80-100); Mean Platelet Volume 11.8 fl (7.4-10.4); Monocytes Absolute Auto 0.5 K/mm3 (0.1-0.6); Monocytes Percent Auto 10.1 % (2.6-8.5); Neutrophils Absolute Auto 2.8 K/mm3 (1.3-6.7); Neutrophils Percent Auto 61.9 % (45.5-73.1); Platelet Count Result 164 k/mm3 (150-375); Red Blood Count 3.75 M/mm3 (4.2-5.4); Red Cell Distribution Width 16.4 % (11.5-14.5); White Blood Count 4.5 K/mm3 (4.5-10.0)
[2024-08-25 06:03] LABS: Iron 30 ug/dL (37-170)
[2024-08-25 06:12] LABS: Percent Iron Saturation 13 % (20-50)
[2024-08-25 06:19] LABS: Hypochromasia 1+; Platelet Estimate Adequate (Adequate)
[2024-08-25 06:20] LABS: Anisocytosis 1+; Burr Cells 1+; Ovalocytes 1+; Schistocytes Rare
[2024-08-25 06:35] LABS: Thyroid Stimulating Hormone Reflex 0.789 uIU/mL (0.465-4.68)
[2024-08-25 06:44] LABS: Anion Gap 4 mmol/L (4-12); Blood Urea Nitrogen 19 mg/dL (7-17); Calcium 8.2 mg/dL (8.4-10.2); Carbon Dioxide 21 mmol/L (22-30); Chloride 114 mmol/L (98-107); Estimated CRCL calculation 68 ml/min; Estimated Glomerular Filt Rate > 60; Glucose 90 mg/dL (65-110); Potassium 3.8 mmol/L (3.4-5.0); Sodium 139 mmol/L (137-145)
[2024-08-25 07:19] LABS: Folic Acid 4.8 ng/mL (2.76->20)
[2024-08-25] MEDS: SODIUM CHLORIDE 0.9% IV 1,000 ML 75 ML IV CONT (10:16)
[2024-08-25] MEDS: buPROPion HCL SR (12HR) 100 MG TABCR 200 MG PO ×2 (10:17→21:15)
[2024-08-25] MEDS: ENOXAPARIN 40 MG/0.4 ML SYRINGE SUB-Q (10:17)
[2024-08-25] MEDS: METOPROLOL TARTRATE 25 MG TABLET PO (10:17)
[2024-08-25] MEDS: CITALOPRAM HYDROBROMIDE 20 MG TABLET PO (10:18)
[2024-08-25] MEDS: LEFLUNOMIDE 20 MG TABLET PO (10:18)
[2024-08-25] MEDS: amLODIPine BESYLATE 5 MG TABLET PO (10:18)
[2024-08-25] MEDS: ATORVASTATIN 20 MG TABLET PO (10:18)
[2024-08-25] MEDS: DULoxetine HCL 60 MG CAPSULE.DR PO (10:18)
[2024-08-25] MEDS: predniSONE 5 MG TABLET PO (10:18)
[2024-08-25] MEDS: DOCUSATE SODIUM 100 MG CAPSULE PO (10:18)
[2024-08-25] MEDS: PANTOPRAZOLE 40 MG TABLET PO ×2 (10:19→17:57)
--- NOTE | 2024-08-25 15:20 | P.PNIM_ITS ---
Progress Note: A&P Assessment and Plan (1) Multiple falls: Code(s): R29.6 - Repeated falls Status: Acute Assessment and Plan: Failure thrive versus infection versus deconditioning versus other PT OT evaluation ABX for UTI Anemia workup (2) UTI (urinary tract infection): Qualifiers: Hematuria presence: with hematuria Urinary tract infection type: acute cystitis Qualified Code(s): N30.01 - Acute cystitis with hematuria Code(s): N39.0 - Urinary tract infection, site not specified Status: Acute Assessment and Plan: IV Rocephin IVF Culture and sensitivity pending (3) Generalized weakness: Code(s): R53.1 - Weakness Status: Acute Assessment and Plan: See plan above (4) Anemia: Code(s): D64.9 - Anemia, unspecified Status: Acute Assessment and Plan: Anemia workup No signs of acute bleeding Transfuse for hemoglobin less than 7, no need to transfuse at this time (5) Rheumatoid arthritis: Code(s): M06.9 - Rheumatoid arthritis, unspecified Status: Acute Assessment and Plan: Okay to restart methotrexate and prednisone (6) Hypertension: Code(s): I10 - Essential (primary) hypertension Status: Acute Assessment and Plan: Continue Norvasc and metoprolol (7) CHF (congestive heart failure): Code(s): I50.9 - Heart failure, unspecified Status: Acute Assessment and Plan: Patient does not appear to be on diuretics, she has 2+ pedal edema Echocardiogram pending will get lower ext US (8) Hyperlipemia: Code(s): E78.5 - Hyperlipidemia, unspecified Status: Acute Assessment and Plan: Home Lipitor (9) Hypothyroidism: Code(s): E03.9 - Hypothyroidism, unspecified Status: Acute Assessment and Plan: Home Synthroid (10) Paresthesia: Code(s): R20.2 - Paresthesia of skin Status: Acute Assessment and Plan: Last known well [address] with no acute finding Aspirin will consult neurology Subjective Date/time seen: 08/25/24 15:20 Interval history: per HPi: 69-year-old patient with past medical history of COPD, CHF, hypertension, hypothyroidism and bipolar presents the hospital with weakness, falls and right knee pain. Patient complains of generalized weakness increasing over the last week from baseline she is finding it hard care for herself. Upon asking the patient more questions she states that she knows she had numbness and tingling of her right leg and arm about 3 days ago. She states that she has not got it checked out. Lab work shows anemia at 11.2, chloride 110, BUN of 19, approach BNP of 548, UA shows cloudy positive for nitrates 2+ leukocyte esterase over 100 wbc's and 4+ bacteria. Chest CT shows no acute cardiopulmonary process, right knee x-ray with no acute process. Patient was started on Rocephin and admitted for UTI. 08/25/24 Ta was seen and examined at bedside. she is feeling fine. still has R knee pain and leg swelling. will get Us to R/O DVT OT/PT on board Echo pending Review of Systems Review of Systems: 12 systems were reviewed and are negativ e except for as per HPI. Exam Narrative: General: well appearing, appears stated age. HEENT: normocephalic, atraumatic. Mucous membranes moist. EOMI, PERRLA, bilateral sclera anicteric, no conjunctival injection. Neck supple without JVD, lymphadenopathy, or bruit. Respiratory: clear to ascultation bilaterally. No rales/rhonic/wheezes. Cardiovascular: Regular rate and rhythm, normal S1-S2 upon ascultation. No murmurs, rubs, or clicks. PMI is nondisplaced, capillary refill less than 3 second. Abdomen: Soft, round, no pulsatile masses, nondistended and nontender. No rebound, no guarding. No CVA tenderness, no hepatosplenomegaly. Bowel sounds present to all four quadrants. No high pitch or tinkling sounds, resonant to percussion. Extremities: No cyanosis, clubbing, present. Pulses are palpable 2/2. Active ROM to all four extremities. R leg edema Neuro: Alert and orientated x 4. PERRLA. Cranial nerves 2-12 intact without focal deficit. Skin: Warm, dry, and intact, without rash, erythema, or lesion. Psych: pleasant, cooperative, normal speech, normal affect, no hallucinations, no dysarthia Objective Data Vital Signs Vital Signs: Vital Signs - 24 hr 08/24/24 15:48 08/24/24 18:24 08/24/24 20:00 Temperature Pulse Rate 57 L 58 L Respiratory Rate 20 Blood Pressure 132/91 H Pulse Oximetry 99 Oxygen Delivery Room Air 08/24/24 20:00 08/24/24 21:46 08/25/24 00:00 Temperature 97.9 F Pulse Rate 50 L 51 L Respiratory Rate 16 Blood Pressure 135/62 Pulse Oximetry 95 Oxygen Delivery Room Air 08/25/24 04:00 08/25/24 04:58 08/25/24 10:10 Temperature 97.9 F Pulse Rate 54 L 58 L Respiratory Rate 18 Blood Pressure 157/61 H Pulse Oximetry 96 Oxygen Delivery Room Air 08/25/24 10:17 08/25/24 11:47 08/25/24 12:00 Temperature Pulse Rate 63 63 Respiratory Rate Blood Pressure Pulse Oximetry Oxygen Delivery Room Air 08/25/24 13:13 Temperature Pulse Rate Respiratory Rate Blood Pressure Pulse Oximetry Oxygen Delivery Room Air Intake/Output Intake/Output: Intake & Output 08/22/24 08/23/24 08/24/24 08/25/24 23:59 23:59 23:59 23:59 Intake Total 550 1460 Output Total 300 Balance 550 1160 Meds/Results Medications: Active Medications Generic Name Dose Route Start Last Admin Trade Name Freq PRN Reason Stop Dose Admin Acetaminophen 650 mg 08/24/24 15:25 Acetaminophen 325 Mg Tablet PO Q4H PRN Mild Pain (1-3) or Fever Hydrocodone Bitart/Acetaminophen 1 tab 08/24/24 17:17 Hydrocodone/Acetaminophen (*Crx) 5-325 Mg Tablet PO Q4H PRN Moderate Pain (4-6) Albuterol 2 puff 08/24/24 19:36 Albuterol Sulfate (*Sp) Aerosol 1 Puff INHALATION QID PRN Shortness Of Breath Or Wheezing Amlodipine Besylate 5 mg 08/25/24 09:00 08/25/24 10:18 Amlodipine Besylate 5 Mg Tablet PO 5 mg DAILY NIDIA Administration Atorvastatin Calcium 20 mg 08/25/24 09:00 08/25/24 10:18 Atorvastatin 20 Mg Tablet PO 20 mg DAILY NIDIA Administration Bupropion HCl 200 mg 08/24/24 21:00 08/25/24 10:17 Bupropion Hcl Sr (12hr) 100 Mg Tabcr PO 200 mg Q12HR NIDIA Administration Citalopram Hydrobromide 20 mg 08/25/24 09:00 08/25/24 10:18 Citalopram Hydrobromide 20 Mg Tablet PO 20 mg DAILY NIDIA Administration Dextrose 12.5 gm 08/24/24 15:25 Dextrose 50% 25 Gm/50 Ml Syringe IV PUSH PRN PRN Hypoglycemia Protocol Docusate Sodium 100 mg 08/25/24 09:00 08/25/24 10:18 Docusate Sodium 100 Mg Capsule PO 100 mg BID NIDIA Administration Duloxetine HCl 60 mg 08/25/24 09:00 08/25/24 10:18 Duloxetine Hcl 60 Mg Capsule.Dr PO 60 mg DAILY NIDIA Administration Enoxaparin Sodium 40 mg 08/25/24 09:00 08/25/24 10:17 Enoxaparin 40 Mg/0.4 Ml Syringe SUB-Q 40 mg DAILY NIDIA Administration Glucagon 1 mg 08/24/24 15:25 Glucagon For Inj 1 Mg Vial IM PRN PRN Hypoglycemia Protocol Glucose 15 gm 08/24/24 15:25 Glucose Oral Gel 15 Gm Of Glucse In 37.5 Gm Tube PO PRN PRN Hypoglycemia Protocol Ceftriaxone Sodium 1 gm in 50 mls @ 100 mls/hr 08/25/24 09:00 08/25/24 10:19 Rocephin 1 Gm/Ns 50 Ml IVPB 100 mls/hr Q24H NIDIA Administration Dextrose 1,000 mls @ 100 mls/hr 06/19/25 15:25 Dextrose 5% 1,000 Ml IVPB PRN PRN Hypoglycemia Protocol Sodium Chloride 1,000 mls @ 75 mls/hr 08/24/24 17:20 08/25/24 10:16 Normal Saline Iv IV CONT 75 mls/hr .[id number] NIDIA Administration Leflunomide 20 mg 08/25/24 09:00 08/25/24 10:18 Leflunomide 20 Mg Tablet PO 20 mg DAILY NIDIA Administration Levothyroxine Sodium 150 mcg 08/25/24 06:30 08/25/24 05:41 Levothyroxine Sodium 150 Mcg Tablet PO 150 mcg DAILY@0630 NIDIA Administration Metoprolol Tartrate 25 mg 08/25/24 09:00 08/25/24 10:17 Metoprolol Tartrate 25 Mg Tablet PO 25 mg DAILY NIDIA Administration Ondansetron HCl 4 mg 08/24/24 15:25 Ondansetron Inj 4 Mg/2 Ml Vial IV PUSH Q4H PRN Nausea Pantoprazole Sodium 40 mg 08/24/24 19:45 08/25/24 10:19 Pantoprazole 40 Mg Tablet PO 40 mg BID NIDIA Administration Perflutren Lipid Microsphere 0 ml 08/24/24 23:32 Perflutren Lipid Microspheres 1.5 Ml Vial Diluted To 10 Ml Total Volume IV PUSH 08/27/24 23:32 ONCE PRN adequate visualization Protocol Prednisone 5 mg 08/25/24 09:00 08/25/24 10:18 Prednisone 5 Mg Tablet PO 5 mg DAILY NIDIA Administration Risperidone 1 mg 08/24/24 21:00 08/24/24 20:49 Risperidone 1 Mg Tablet PO 1 mg HS NIDIA Administration Ropinirole HCl 1 mg 08/24/24 21:00 08/24/24 20:49 Ropinirole Hcl 1 Mg Tablet PO 1 mg HS NIDIA Administration Radiology Results: ITS Impressions Head CT 08/24/24 14:00 IMPRESSION: No acute intracranial findings. Chest X-Ray 08/24/24 14:08 IMPRESSION: No definite acute cardiopulmonary pathology. Opacity in the left lower lobe which may be due to elevation of the diaphragm or atelectasis. CT evaluation advised. Knee X-Ray 08/24/24 14:11 IMPRESSION: No acute osseous abnormality right knee. Severe osteoarthritic changes. Chest CT 08/24/24 14:58 IMPRESSION: No acute cardiopulmonary pathology. Elevation of the left hemidiaphragm. No masses noted. Sliding hiatus hernia. Labs Labs: Laboratory Results - last 24 hr 08/25/24 05:26 WBC 4.5 RBC 3.75 L Hgb 10.1 L Hct 35.4 L MCV 94.4 MCH 26.9 MCHC 28.5 L RDW 16.4 H Plt Count 164 MPV 11.8 H Immature Gran % (Auto) 0.4 Neut % (Auto) 61.9 Lymph % (Auto) 24.7 [place] % (Auto) 10.1 H Eos % (Auto) 2.7 Baso % (Auto) 0.2 Lymph # (Auto) 1.10 [place] # (Auto) 0.5 Eos # (Auto) 0.1 Baso # (Auto) 0.0 Abs Immat Gran (auto) 0.02 Absolute Neuts (auto) 2.8 Absolute Nucleated RBC 0.000 Band Neutrophils % Not Reportable Nucleated RBC % 0.0 Platelet Estimate Adequate % Immature Plt Fraction 4.1 Hypochromasia 1+ Anisocytosis 1+ Ovalocytes 1+ [place] Cells 1+ Schistocytes Rare Sodium 139 Potassium 3.8 Chloride 114 H Carbon Dioxide 21 L Anion Gap 4 BUN 19 H Creatinine 0.80 Estim Creat Clear Calc 68 Estimated GFR > 60 Glucose 90 Calcium 8.2 L Iron 30 L TIBC 231 L % Saturation 13 L Ferritin 33.00 Vitamin B12 861.0 Folate 4.8 TSH (Reflex) 0.789 Quality VTE Prophylaxis VTE prophylaxis: mechanical ordered and pharmacologic ordered
[2024-08-25] MEDS: rOPINIRole HCL 1 MG TABLET PO (21:15)
[2024-08-25] MEDS: risperiDONE 1 MG TABLET PO (21:15)
[2024-08-26] VITALS (11 sets, daily range): BP systolic 155–162; BP diastolic 62–89; PULSE 49–62; RESP 16–18; TEMP 36.2–36.6; O2SAT 94–96
[2024-08-26] MEDS: LEVOTHYROXINE SODIUM 150 MCG TABLET PO (05:33)
[2024-08-26] MEDS: SODIUM CHLORIDE 0.9% IV 1,000 ML 75 ML IV CONT ×2 (05:33→08:31)
[2024-08-26 06:26] LABS: Hematocrit 35.7 % (37.0-47.0); Hemoglobin 10.4 g/dL (12.0-15.0); Mean Corpuscular HGB Conc 29.1 g/dl (32-36); Mean Corpuscular Hemoglobin 26.8 pg (26-34); Mean Platelet Volume 11.1 fl (7.4-10.4); Platelet Count Result 185 k/mm3 (150-375); Red Blood Count 3.88 M/mm3 (4.2-5.4); Red Cell Distribution Width 16.4 % (11.5-14.5)
[2024-08-26 06:52] LABS: Anion Gap 6 mmol/L (4-12); Blood Urea Nitrogen 14 mg/dL (7-17); Calcium 8.7 mg/dL (8.4-10.2); Carbon Dioxide 21 mmol/L (22-30); Chloride 113 mmol/L (98-107); Estimated CRCL calculation 85 ml/min; Estimated Glomerular Filt Rate > 60; Glucose 95 mg/dL (65-110); Potassium 3.9 mmol/L (3.4-5.0); Sodium 140 mmol/L (137-145)
[2024-08-26] MEDS: CITALOPRAM HYDROBROMIDE 20 MG TABLET PO (08:29)
[2024-08-26] MEDS: buPROPion HCL SR (12HR) 100 MG TABCR 200 MG PO ×2 (08:29→20:14)
[2024-08-26] MEDS: DOCUSATE SODIUM 100 MG CAPSULE PO (08:29)
[2024-08-26] MEDS: LEFLUNOMIDE 20 MG TABLET PO (08:29)
[2024-08-26] MEDS: amLODIPine BESYLATE 5 MG TABLET PO (08:29)
[2024-08-26] MEDS: ENOXAPARIN 40 MG/0.4 ML SYRINGE SUB-Q (08:29)
[2024-08-26] MEDS: DULoxetine HCL 60 MG CAPSULE.DR PO (08:30)
[2024-08-26] MEDS: PANTOPRAZOLE 40 MG TABLET PO ×2 (08:30→17:13)
[2024-08-26] MEDS: ATORVASTATIN 20 MG TABLET PO (08:30)
[2024-08-26] MEDS: predniSONE 5 MG TABLET PO (08:30)
[2024-08-26] MEDS: METOPROLOL TARTRATE 25 MG TABLET PO (08:30)
--- NOTE | 2024-08-26 09:29 | PC.NURSE ---
Cardiopulmonary called to question why ECHO was cancelled. RN called MD. MD stated patient had ECHO about a month ago, so does not need another one.
--- NOTE | 2024-08-26 14:17 | P.PNIM_ITS ---
Progress Note: A&P Assessment and Plan (1) Multiple falls: Code(s): R29.6 - Repeated falls Status: Acute Assessment and Plan: Failure thrive versus infection versus deconditioning versus other PT OT evaluation ABX for UTI Anemia workup (2) UTI (urinary tract infection): Qualifiers: Hematuria presence: with hematuria Urinary tract infection type: acute cystitis Qualified Code(s): N30.01 - Acute cystitis with hematuria Code(s): N39.0 - Urinary tract infection, site not specified Status: Acute Assessment and Plan: IV Rocephin Culture and sensitivity pending (3) Generalized weakness: Code(s): R53.1 - Weakness Status: Acute Assessment and Plan: See plan above (4) Anemia: Code(s): D64.9 - Anemia, unspecified Status: Acute Assessment and Plan: Anemia workup No signs of acute bleeding Transfuse for hemoglobin less than 7, no need to transfuse at this time (5) Rheumatoid arthritis: Code(s): M06.9 - Rheumatoid arthritis, unspecified Status: Acute Assessment and Plan: Okay to restart methotrexate and prednisone (6) Hypertension: Code(s): I10 - Essential (primary) hypertension Status: Acute Assessment and Plan: Continue Norvasc and metoprolol (7) CHF (congestive heart failure): Code(s): I50.9 - Heart failure, unspecified Status: Acute Assessment and Plan: Gerade 1 diastolic heart failure Patient does not appear to be on diuretics, she has 2+ pedal edema will get lower ext US (8) Hyperlipemia: Code(s): E78.5 - Hyperlipidemia, unspecified Status: Acute Assessment and Plan: Home Lipitor (9) Hypothyroidism: Code(s): E03.9 - Hypothyroidism, unspecified Status: Acute Assessment and Plan: Home Synthroid (10) Paresthesia: Code(s): R20.2 - Paresthesia of skin Status: Acute Assessment and Plan: Last known well 3 days before admission Head CT with no acute finding Aspirin will consult neurology Subjective Date/time seen: 08/26/24 14:17 Interval history: per HPi: 69-year-old patient with past medical history of COPD, CHF, hypertension, hypothyroidism and bipolar presents the hospital with weakness, falls and right knee pain. Patient complains of generalized weakness increasing over the last week from baseline she is finding it hard care for herself. Upon asking the patient more questions she states that she knows she had numbness and tingling of her right leg and arm about 3 days ago. She states that she has not got it checked out. Lab work shows anemia at 11.2, chloride 110, BUN of 19, approach BNP of 548, UA shows cloudy positive for nitrates 2+ leukocyte esterase over 100 wbc's and 4+ bacteria. Chest CT shows no acute cardiopulmonary process, right knee x-ray with no acute process. Patient was started on Rocephin and admitted for UTI. 08/25/24 Ta was seen and examined at bedside. she is feeling fine. still has R knee pain and leg swelling. will get Us to R/O DVT OT/PT on board 08/26/24 Patient was seen and examined bedside. She is feeling better. Her leg is slightly improving. Waiting for Neurology team recommendation. Lower extremity Doppler pending DC echo as patient had echo about 2 months ago Review of Systems Review of Systems: 12 systems were reviewed and are negativ e except for as per HPI. Exam Narrative: General: well appearing, appears stated age. HEENT: normocephalic, atraumatic. Mucous membranes moist. EOMI, PERRLA, bilateral sclera anicteric, no conjunctival injection. Neck supple without JVD, lymphadenopathy, or bruit. Respiratory: clear to ascultation bilaterally. No rales/rhonic/wheezes. Cardiovascular: Regular rate and rhythm, normal S1-S2 upon ascultation. No murmurs, rubs, or clicks. PMI is nondisplaced, capillary refill less than 3 second. Abdomen: Soft, round, no pulsatile masses, nondistended and nontender. No rebound, no guarding. No CVA tenderness, no hepatosplenomegaly. Bowel sounds present to all four quadrants. No high pitch or tinkling sounds, resonant to percussion. Extremities: No cyanosis, clubbing, present. Pulses are palpable 2/2. Active ROM to all four extremities. R leg edema Neuro: Alert and orientated x 4. PERRLA. Cranial nerves 2-12 intact without focal deficit. Skin: Warm, dry, and intact, without rash, erythema, or lesion. Psych: pleasant, cooperative, normal speech, normal affect, no hallucinations, no dysarthia Objective Data Vital Signs Vital Signs: Vital Signs - 24 hr 08/25/24 16:00 08/25/24 20:00 08/25/24 20:00 Temperature Pulse Rate 57 L 59 L Respiratory Rate Blood Pressure Pulse Oximetry Oxygen Delivery Room Air 08/25/24 21:40 08/26/24 00:00 08/26/24 04:00 Temperature 97.7 F Pulse Rate 55 L 56 L 51 L Respiratory Rate 16 Blood Pressure 150/63 H Pulse Oximetry 95 Oxygen Delivery 08/26/24 04:49 08/26/24 08:00 08/26/24 08:00 Temperature 97.4 F L Pulse Rate 56 L 56 L 62 Respiratory Rate 16 16 Blood Pressure 159/89 H Pulse Oximetry 96 96 Oxygen Delivery Room Air 08/26/24 08:30 08/26/24 11:57 08/26/24 12:00 Temperature Pulse Rate 62 52 L 49 L Respiratory Rate Blood Pressure Pulse Oximetry Oxygen Delivery Intake/Output Intake/Output: Intake & Output 08/23/24 08/24/24 08/25/24 08/26/24 23:59 23:59 23:59 23:59 Intake Total 550 3092 1122.5 Output Total 700 950 Balance 550 2392 172.5 Meds/Results Medications: Active Medications Generic Name Dose Route Start Last Admin Trade Name Nicko PRN Reason Stop Dose Admin Acetaminophen 650 mg 08/24/24 15:25 Acetaminophen 325 Mg Tablet PO Q4H PRN Mild Pain (1-3) or Fever Hydrocodone Bitart/Acetaminophen 1 tab 08/24/24 17:17 Hydrocodone/Acetaminophen (*Crx) 5-325 Mg Tablet PO Q4H PRN Moderate Pain (4-6) Albuterol 2 puff 08/24/24 19:36 Albuterol Sulfate (*Sp) Aerosol 1 Puff INHALATION QID PRN Shortness Of Breath Or Wheezing Amlodipine Besylate 5 mg 08/25/24 09:00 08/26/24 08:29 Amlodipine Besylate 5 Mg Tablet PO 5 mg DAILY NIDIA Administration Atorvastatin Calcium 20 mg 08/25/24 09:00 08/26/24 08:30 Atorvastatin 20 Mg Tablet PO 20 mg DAILY NIDIA Administration Bupropion HCl 200 mg 08/24/24 21:00 08/26/24 08:29 Bupropion Hcl Sr (12hr) 100 Mg Tabcr PO 200 mg Q12HR NIDIA Administration Citalopram Hydrobromide 20 mg 08/25/24 09:00 08/26/24 08:29 Citalopram Hydrobromide 20 Mg Tablet PO 20 mg DAILY NIDIA Administration Dextrose 12.5 gm 08/24/24 15:25 Dextrose 50% 25 Gm/50 Ml Syringe IV PUSH PRN PRN Hypoglycemia Protocol Docusate Sodium 100 mg 08/25/24 09:00 08/26/24 08:29 Docusate Sodium 100 Mg Capsule PO 100 mg BID NIDIA Administration Duloxetine HCl 60 mg 08/25/24 09:00 08/26/24 08:30 Duloxetine Hcl 60 Mg Capsule.Dr PO 60 mg DAILY NIDIA Administration Enoxaparin Sodium 40 mg 08/25/24 09:00 08/26/24 08:29 Enoxaparin 40 Mg/0.4 Ml Syringe SUB-Q 40 mg DAILY NIDIA Administration Glucagon 1 mg 08/24/24 15:25 Glucagon For Inj 1 Mg Vial IM PRN PRN Hypoglycemia Protocol Glucose 15 gm 08/24/24 15:25 Glucose Oral Gel 15 Gm Of Glucse In 37.5 Gm Tube PO PRN PRN Hypoglycemia Protocol Ceftriaxone Sodium 1 gm in 50 mls @ 100 mls/hr 08/25/24 09:00 08/26/24 08:27 Rocephin 1 Gm/Ns 50 Ml IVPB 100 mls/hr Q24H NIDIA Administration Dextrose 1,000 mls @ 100 mls/hr 08/24/24 15:25 Dextrose 5% 1,000 Ml IVPB PRN PRN Hypoglycemia Protocol Leflunomide 20 mg 08/25/24 09:00 08/26/24 08:29 Leflunomide 20 Mg Tablet PO 20 mg DAILY NIDIA Administration Levothyroxine Sodium 150 mcg 08/25/24 06:30 08/26/24 05:33 Levothyroxine Sodium 150 Mcg Tablet PO 150 mcg DAILY@0630 NIDIA Administration Metoprolol Tartrate 25 mg 08/25/24 09:00 08/26/24 08:30 Metoprolol Tartrate 25 Mg Tablet PO 25 mg DAILY NIDIA Administration Ondansetron HCl 4 mg 08/24/24 15:25 Ondansetron Inj 4 Mg/2 Ml Vial IV PUSH Q4H PRN Nausea Pantoprazole Sodium 40 mg 08/24/24 19:45 08/26/24 08:30 Pantoprazole 40 Mg Tablet PO 40 mg BID NIDIA Administration Perflutren Lipid Microsphere 0 ml 08/24/24 23:32 Perflutren Lipid Microspheres 1.5 Ml Vial Diluted To 10 Ml Total Volume IV PUSH 08/27/24 23:32 ONCE PRN adequate visualization Protocol Prednisone 5 mg 08/25/24 09:00 08/26/24 08:30 Prednisone 5 Mg Tablet PO 5 mg DAILY NIDIA Administration Risperidone 1 mg 08/24/24 21:00 08/25/24 21:15 Risperidone 1 Mg Tablet PO 1 mg HS NIDIA Administration Ropinirole HCl 1 mg 08/24/24 21:00 08/25/24 21:15 Ropinirole Hcl 1 Mg Tablet PO 1 mg HS NIDIA Administration Radiology Results: ITS Impressions Head CT 08/24/24 14:00 IMPRESSION: No acute intracranial findings. Chest X-Ray 08/24/24 14:08 IMPRESSION: No definite acute cardiopulmonary pathology. Opacity in the left lower lobe which may be due to elevation of the diaphragm or atelectasis. CT evaluation advised. Knee X-Ray 08/24/24 14:11 IMPRESSION: No acute osseous abnormality right knee. Severe osteoarthritic changes. Chest CT 08/24/24 14:58 IMPRESSION: No acute cardiopulmonary pathology. Elevation of the left hemidiaphragm. No masses noted. Sliding hiatus hernia. Ankle Brachial Index 08/25/24 16:25 IMPRESSION: Bilateral normal STEPHANIE. Labs Labs: Laboratory Results - last 24 hr 08/26/24 06:10 WBC 4.0 L RBC 3.88 L Hgb 10.4 L Hct 35.7 L MCV 92.0 MCH 26.8 MCHC 29.1 L RDW 16.4 H Plt Count 185 MPV 11.1 H Sodium 140 Potassium 3.9 Chloride 113 H Carbon Dioxide 21 L Anion Gap 6 BUN 14 D Creatinine 0.63 L Estim Creat Clear Calc 85 Estimated GFR > 60 Glucose 95 Calcium 8.7 Quality VTE Prophylaxis VTE prophylaxis: mechanical ordered and pharmacologic ordered
[2024-08-26] MEDS: risperiDONE 1 MG TABLET PO (20:14)
[2024-08-26] MEDS: rOPINIRole HCL 1 MG TABLET PO (20:14)
[2024-08-27] VITALS (10 sets, daily range): BP systolic 146–202; BP diastolic 66–80; PULSE 51–66; RESP 16–18; TEMP 36.4–36.7; O2SAT 95–96
[2024-08-27 05:52] LABS: Hemoglobin 10.3 g/dL (12.0-15.0); Mean Corpuscular HGB Conc 29.4 g/dl (32-36); Mean Corpuscular Hemoglobin 26.7 pg (26-34); Mean Corpuscular Volume 90.7 fl (80-100); Mean Platelet Volume 10.5 fl (7.4-10.4); Platelet Count Result 183 k/mm3 (150-375); Red Blood Count 3.86 M/mm3 (4.2-5.4); Red Cell Distribution Width 16.2 % (11.5-14.5); White Blood Count 4.3 K/mm3 (4.5-10.0)
[2024-08-27] MEDS: LEVOTHYROXINE SODIUM 150 MCG TABLET PO (05:57)
[2024-08-27] MEDS: hydrALAZINE HCL 20 MG/ML VIAL 10 MG IV PUSH (05:57)
[2024-08-27 06:08] LABS: Anion Gap 6 mmol/L (4-12); Blood Urea Nitrogen 12 mg/dL (7-17); Calcium 8.8 mg/dL (8.4-10.2); Carbon Dioxide 23 mmol/L (22-30); Chloride 111 mmol/L (98-107); Estimated CRCL calculation 77 ml/min; Estimated Glomerular Filt Rate > 60; Glucose 92 mg/dL (65-110); Potassium 3.4 mmol/L (3.4-5.0); Sodium 140 mmol/L (137-145)
[2024-08-27] MEDS: HYDROcodone/acetaminophen (*CRX) 5-325 MG TABLET 1 TAB PO ×2 (09:46→16:30)
[2024-08-27] MEDS: amLODIPine BESYLATE 10 MG TABLET PO (09:48)
[2024-08-27] MEDS: METOPROLOL TARTRATE 25 MG TABLET PO (09:48)
[2024-08-27] MEDS: LEFLUNOMIDE 20 MG TABLET PO (09:49)
[2024-08-27] MEDS: predniSONE 5 MG TABLET PO (09:49)
[2024-08-27] MEDS: CITALOPRAM HYDROBROMIDE 20 MG TABLET PO (09:49)
[2024-08-27] MEDS: ENOXAPARIN 40 MG/0.4 ML SYRINGE SUB-Q (09:49)
[2024-08-27] MEDS: ATORVASTATIN 20 MG TABLET PO (09:49)
[2024-08-27] MEDS: DOCUSATE SODIUM 100 MG CAPSULE PO (09:49)
[2024-08-27] MEDS: buPROPion HCL SR (12HR) 100 MG TABCR 200 MG PO ×2 (09:49→20:14)
[2024-08-27] MEDS: PANTOPRAZOLE 40 MG TABLET PO ×2 (09:49→16:31)
[2024-08-27] MEDS: DULoxetine HCL 60 MG CAPSULE.DR PO (09:49)
--- NOTE | 2024-08-27 11:39 | WPDNEURCNPN ---
Assessment and Plan Assessment and plan (1) Paresthesia: Code(s): R20.2 - Paresthesia of skin Status: Acute (2) Multiple falls: Code(s): R29.6 - Repeated falls Status: Acute (3) Generalized weakness: Code(s): R53.1 - Weakness Status: Acute (4) Cervical cord compression with myelopathy: Code(s): G95.20 - Unspecified cord compression Status: Acute Plan 1. Complaints of generalized weakness in addition to the history of fall and numbness in the lower extremities, with positive Babinski on clinical examination raising the possibility of his spinal axis involvement particularly in the cervical spine area and also with negative CT scan of the head will benefit from MRI of the cervical spine and if necessary thoracic spine. The MRI has been ordered if any question arises do not hesitate to contact me. Consult date: 08/27/24 HPI: Alisha Arguello is a 69 year old female Admitted to the hospital through the emergency room for the complaints of jaw weakness and right lower extremity pain subsequent to a fall. At the time of visit to the ER she was ambulatory with no limitation. She has ongoing history of 1. COPD 2. Congestive heart failure 3. Hyper tension 4. Hypothyroidism. As per the report she has had several falls over the last few days onto her right knee. She has been unable to bear weight over the past couple of days due to the pain in her right knee. She lives at home by herself. Her friends come and go and check on her. She denied generalized weakness or focal weakness and gave no history of any head injury. She she has been taking multiple medications as outlined. Particularly including amlodipine 5mg daily, atorvastatin 20mg daily, bupropion 200mg b.i.d., citalopram 20mg daily, duloxetine 60mg daily, leflunomide 20mg daily, metoprolol 25mg daily, risperidone 1mg at night, ropinirole 1mg at night, topiramate 100mg 3 times a day, prednisone 5mg daily, and levothyroxine 150mcg daily. As obvious she does have history of bipolar 1 disorder with anxiety and depression in addition to chronic obstructive pulmonary disease with pulmonary hypertension and rheumatoid arthritis with carpal tunnel syndrome as well. She has insertion of sacral nerve stimulator, and has undergone total left knee replacement. SHe carries full code status with smoking packs per day 1.25 and years smoked 45 currently everyday smoker. On initial exam she was obviously chronically ill appearing, with BMI of 43.7, bradycardiac with no irregular rhythm, able to move all extremities, and grossly no focal neurological deficit. Her vital signs were with pulse rate of only 46, respiration 23, and blood pressure 144/68 and she was notedly afebrile. CBC was normal BMP was normal UA was abnormal with positive nitrate ,wbc's more than 100 and 4+ bacteria. initial CT of the head revealed no bleed, no hydrocephalus, chest x-ray opacity in the left lower lobe which was attributed to the mild atelectasis but CT scan was suggested knee x-rays revealed no acute abnormality but severe osteoarthritic changes. CT of the chest with sliding hiatal hernia but no tumor EKG normal with bradycardia admitted to the hospital for the failure to thrive and generalized weakness. Review of Systems Review of Systems: All systems reviewed & are unremarkable except as noted in HPI and below PMFSH Past Medical History Medical History Pulmonary hypertension Diastolic dysfunction Chronic obstructive pulmonary disease Rheumatoid arthritis Carpal tunnel syndrome Anxiety and depression Bipolar 1 disorder Hyperlipemia Hypertension Hypothyroidism Surgical History Surgical History Status post insertion of sacral nerve stimulator History of hysterectomy History of thyroidectomy History of total left knee replacement History of tonsillectomy Family History Family History Mother Hypertension COPD (chronic obstructive pulmonary disease) Lung cancer Father Hypertension COPD (chronic obstructive pulmonary disease) Lung cancer Grandparent Cerebrovascular accident maternal grandmother Son Diabetes mellitus Social History Social History Social History: Surrogate medical decision maker: Adam Arguello, doc. Code status: Full code. Smoking packs per day: 1.25 Smoking cigarettes per day: 25.0 Years smoked: 45 Smoking pack-years: 56.25 Smoking status: Current every day smoker Tobacco type: cigarettes Additional smoking assessment comments: CURRENTLY SMOKING 1/2 PACK/DAY, TRYING TO QUIT Alcohol intake: former Alcohol use details: FORMER ALCOHOLIC QUIT 2009 Substance use: former Substance use type: marijuana Do You Feel Safe in your Home?: Yes Lack of Transportation: No Lack of Food: Never True Current Housing: I Have Housing Concerned About Future Housing: No Difficulty Paying Gas/Electric Bills: YES Difficulty Paying for Meds: YES Currently Unemployed: No Education: High School Diploma/GED Difficulty w/ Childcare or Family Care: No Living arrangements: alone Additional living arrangements comments: Lives alone. She has 1 son. 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 Spiritual care concerns: No Agree to blood products: Yes Meds Home Medications and Allergies Home Medications ?Medication ?Instructions ?Recorded ?Confirmed ?Type albuterol sulfate 90 mcg/actuation 2 inh inhalation QID PRN Shortness 08/25/21 08/24/24 History aerosol inhaler Of Breath Or Wheezing alendronate 70 mg tablet 1 tablet PO WEEKLY 08/25/21 08/24/24 History amlodipine 5 mg tablet 5 mg PO DAILY 08/25/21 08/24/24 History atorvastatin 20 mg tablet 20 mg PO DAILY 08/25/21 08/24/24 History bupropion HCl 200 mg tablet,12 hr 200 mg PO BID 08/25/21 08/24/24 History sustained-release citalopram 20 mg tablet 20 mg PO DAILY 08/25/21 08/24/24 History duloxetine 60 mg capsule,delayed 60 mg PO DAILY 08/25/21 08/24/24 History release etanercept 50 mg/mL (1 mL) 1 ea subcut WEEKLY 08/25/21 08/24/24 History subcutaneous pen injector (Enbrel Capriceick) leflunomide 20 mg tablet 20 mg PO DAILY 08/25/21 08/24/24 History metoprolol tartrate 25 mg tablet 25 mg PO DAILY 08/25/21 08/24/24 History omeprazole 40 mg capsule,delayed 40 mg PO DAILY 08/25/21 08/24/24 History release risperidone 1 mg tablet 1 mg PO HS 08/25/21 08/24/24 History ropinirole 1 mg tablet 1 mg PO HS 08/25/21 08/24/24 History topiramate 100 mg tablet 100 mg PO TID 08/25/21 08/24/24 History dextromethorphan-guaifenesin 30 1 tab PO Q12HR #30 tabs 08/27/21 08/24/24 Rx mg-600 mg tablet extended [id number] hr (Mucinex DM) levothyroxine 150 mcg tablet 150 mcg PO QAM 04/21/24 08/24/24 History prednisone 5 mg tablet 5 mg PO DAILY 04/21/24 08/24/24 History hydrocodone 5 mg-acetaminophen 325 1 tablet PO Q6H PRN pain #20 tabs 05/01/24 08/24/24 Rx mg tablet Allergies Allergy/AdvReac Type Severity Reaction Status Date / Time montelukast Allergy Other Verified 08/24/24 18:49 Vital Signs Vital Signs - 24 hr 08/26/24 11:57 08/26/24 12:00 08/26/24 15:22 Temperature 36.2 C L Pulse Rate 52 L 49 L 58 L Respiratory Rate 16 Blood Pressure 162/67 H Pulse Oximetry 94 Oxygen Delivery 08/26/24 16:00 08/26/24 20:00 08/26/24 20:00 Temperature Pulse Rate 59 L 59 L Respiratory Rate Blood Pressure Pulse Oximetry Oxygen Delivery Room Air 08/26/24 21:46 08/27/24 00:00 08/27/24 04:00 Temperature 36.6 C Pulse Rate 57 L 55 L 55 L Respiratory Rate 18 Blood Pressure 155/62 H Pulse Oximetry 95 Oxygen Delivery 08/27/24 05:03 08/27/24 07:15 08/27/24 08:00 Temperature 36.4 C Pulse Rate 58 L 59 L Respiratory Rate 18 Blood Pressure 202/80 H 160/74 H Pulse Oximetry 96 Oxygen Delivery 08/27/24 08:00 08/27/24 09:48 Temperature Pulse Rate 66 Respiratory Rate Blood Pressure Pulse Oximetry Oxygen Delivery Room Air Exam Narrative: exam today reveals her to be awake alert in no obvious acute distress, head normocephalic with no cranial bruit, ear nose throat examination normal, neck supple with no cervical bruit no thyromegaly no lymphadenopathy, heart regular with no murmur, lungs with distant breath sounds no rhonchi or crepitations, abdomen is soft flabby nontender with normal bowel sounds, neurologically she is awake alert, able to follow the verbal commands appropriately, speech is not dysphasic not dysarthric and not dysphonic, pupils round regular feels the vision full in all 4 quadrants , extraocular movements are full with no his nystagmus, facial sensation intact, face symmetrical, tongue in the oral cavity with no fasciculation, motor examination reveals her to have normal strength with no drift against gravity, and the tone is normal, in upper and lower extremities, deep tendon reflexes are sluggish but her plantar responses are upgoing, there is no evidence of gross cerebellar dysfunction. Results Labs 08/27/24 05:40 08/27/24 05:40 Labs: Short CBC 08/27/24 Range/Units 05:40 WBC 4.3 L (4.5-10.0) K/mm3 Hgb 10.3 L (12.0-15.0) g/dL Hct 35.0 L (37.0-47.0) % Plt Count 183 (150-375) k/mm3 [facility] 08/27/24 05:40 Sodium 140 Potassium 3.4 Chloride 111 H Carbon Dioxide 23 BUN 12 Creatinine 0.70 Glucose 92 Calcium 8.8
--- NOTE | 2024-08-27 13:12 | P.PNIM_ITS ---
Progress Note: A&P Assessment and Plan (1) Multiple falls: Code(s): R29.6 - Repeated falls Status: Acute Assessment and Plan: Failure thrive versus infection versus deconditioning versus other PT OT evaluation, recommended rehab ABX for UTI Anemia workup (2) UTI (urinary tract infection): Qualifiers: Hematuria presence: with hematuria Urinary tract infection type: acute cystitis Qualified Code(s): N30.01 - Acute cystitis with hematuria Code(s): N39.0 - Urinary tract infection, site not specified Status: Acute Assessment and Plan: Omnicef Culture positive for E coli and Klebsiella pansensitive (3) Generalized weakness: Code(s): R53.1 - Weakness Status: Acute Assessment and Plan: See plan above (4) Anemia: Code(s): D64.9 - Anemia, unspecified Status: Acute Assessment and Plan: Anemia workup No signs of acute bleeding Transfuse for hemoglobin less than 7, no need to transfuse at this time (5) Rheumatoid arthritis: Code(s): M06.9 - Rheumatoid arthritis, unspecified Status: Acute Assessment and Plan: Okay to restart methotrexate and prednisone (6) Hypertension: Code(s): I10 - Essential (primary) hypertension Status: Acute Assessment and Plan: Continue Norvasc and metoprolol (7) CHF (congestive heart failure): Code(s): I50.9 - Heart failure, unspecified Status: Acute Assessment and Plan: Gerade 1 diastolic heart failure Patient does not appear to be on diuretics, she has 2+ pedal edema lower ext US neg for DVT (8) Hyperlipemia: Code(s): E78.5 - Hyperlipidemia, unspecified Status: Acute Assessment and Plan: Home Lipitor (9) Hypothyroidism: Code(s): E03.9 - Hypothyroidism, unspecified Status: Acute Assessment and Plan: Home Synthroid (10) Paresthesia: Code(s): R20.2 - Paresthesia of skin Status: Acute Assessment and Plan: Last known well 3 days before admission Head CT with no acute finding can not get MRI. She has a stimulator Aspirin neurology on board Subjective Date/time seen: 08/27/24 13:12 Interval history: per HPi: 69-year-old patient with past medical history of COPD, CHF, hypertension, hypothyroidism and bipolar presents the hospital with weakness, falls and right knee pain. Patient complains of generalized weakness increasing over the last week from baseline she is finding it hard care for herself. Upon asking the patient more questions she states that she knows she had numbness and tingling of her right leg and arm about 3 days ago. She states that she has not got it checked out. Lab work shows anemia at 11.2, chloride 110, BUN of 19, approach BNP of 548, UA shows cloudy positive for nitrates 2+ leukocyte esterase over 100 wbc's and 4+ bacteria. Chest CT shows no acute cardiopulmonary process, right knee x-ray with no acute process. Patient was started on Rocephin and admitted for UTI. 08/25/24 Ta was seen and examined at bedside. she is feeling fine. still has R knee pain and leg swelling. will get Us to R/O DVT OT/PT on board 08/26/24 Patient was seen and examined bedside. She is feeling better. Her leg is slightly improving. Waiting for Neurology team recommendation. Lower extremity Doppler pending DC echo as patient had echo about 2 months ago 08/27/24 Patient was seen and examined at bedside. She is feeling better. Her weakness is slightly better. Denies any chest pain, shortness off breath, abdominal pain, nausea vomiting. Right leg swelling is better. Lower extremity Doppler negative for DVT. PT OT recommended rehab Waiting for Neurology recommendation Review of Systems Review of Systems: 12 systems were reviewed and are negativ e except for as per HPI. Exam Narrative: General: well appearing, appears stated age. HEENT: normocephalic, atraumatic. Mucous membranes moist. EOMI, PERRLA, bilateral sclera anicteric, no conjunctival injection. Neck supple without JVD, lymphadenopathy, or bruit. Respiratory: clear to ascultation bilaterally. No rales/rhonic/wheezes. Cardiovascular: Regular rate and rhythm, normal S1-S2 upon ascultation. No murmurs, rubs, or clicks. PMI is nondisplaced, capillary refill less than 3 second. Abdomen: Soft, round, no pulsatile masses, nondistended and nontender. No rebound, no guarding. No CVA tenderness, no hepatosplenomegaly. Bowel sounds present to all four quadrants. No high pitch or tinkling sounds, resonant to percussion. Extremities: No cyanosis, clubbing, present. Pulses are palpable 2/2. Active ROM to all four extremities. R leg edema Neuro: Alert and orientated x 4. PERRLA. Cranial nerves 2-12 intact without focal deficit. Skin: Warm, dry, and intact, without rash, erythema, or lesion. Psych: pleasant, cooperative, normal speech, normal affect, no hallucinations, no dysarthia Objective Data Vital Signs Vital Signs: Vital Signs - 24 hr 08/26/24 15:22 08/26/24 16:00 08/26/24 20:00 Temperature 97.1 F L Pulse Rate 58 L 59 L Respiratory Rate 16 Blood Pressure 162/67 H Pulse Oximetry 94 Oxygen Delivery Room Air 08/26/24 20:00 08/26/24 21:46 08/27/24 00:00 Temperature 98 F Pulse Rate 59 L 57 L 55 L Respiratory Rate 18 Blood Pressure 155/62 H Pulse Oximetry 95 Oxygen Delivery 08/27/24 04:00 08/27/24 05:03 08/27/24 07:15 Temperature 97.6 F Pulse Rate 55 L 58 L Respiratory Rate 18 Blood Pressure 202/80 H 160/74 H Pulse Oximetry 96 Oxygen Delivery 08/27/24 08:00 08/27/24 08:00 08/27/24 09:48 Temperature Pulse Rate 59 L 66 Respiratory Rate Blood Pressure Pulse Oximetry Oxygen Delivery Room Air Intake/Output Intake/Output: Intake & Output 08/24/24 08/25/24 08/26/24 08/27/24 23:59 23:59 23:59 23:59 Intake Total 550 3092 1592.5 520 Output Total 700 2550 800 Balance 550 2392 -957.5 -280 Meds/Results Medications: Active Medications Generic Name Dose Route Start Last Admin Trade Name Freq PRN Reason Stop Dose Admin Acetaminophen 650 mg 08/24/24 15:25 Acetaminophen 325 Mg Tablet PO Q4H PRN Mild Pain (1-3) or Fever Hydrocodone Bitart/Acetaminophen 1 tab 08/24/24 17:17 08/27/24 09:46 Hydrocodone/Acetaminophen (*Crx) 5-325 Mg Tablet PO 1 tab Q4H PRN Administration Moderate Pain (4-6) Albuterol 2 puff 08/24/24 19:36 Albuterol Sulfate (*Sp) Aerosol 1 Puff INHALATION QID PRN Shortness Of Breath Or Wheezing Amlodipine Besylate 10 mg 08/27/24 09:00 08/27/24 09:48 Amlodipine Besylate 10 Mg Tablet PO 10 mg DAILY NIDIA Administration Atorvastatin Calcium 20 mg 08/25/24 09:00 08/27/24 09:49 Atorvastatin 20 Mg Tablet PO 20 mg DAILY NIDIA Administration Bupropion HCl 200 mg 08/24/24 21:00 08/27/24 09:49 Bupropion Hcl Sr (12hr) 100 Mg Tabcr PO 200 mg Q12HR NIDIA Administration Citalopram Hydrobromide 20 mg 08/25/24 09:00 08/27/24 09:49 Citalopram Hydrobromide 20 Mg Tablet PO 20 mg DAILY NIDIA Administration Dextrose 12.5 gm 08/24/24 15:25 Dextrose 50% 25 Gm/50 Ml Syringe IV PUSH PRN PRN Hypoglycemia Protocol Docusate Sodium 100 mg 08/25/24 09:00 08/27/24 09:49 Docusate Sodium 100 Mg Capsule PO 100 mg BID NIDIA Administration Duloxetine HCl 60 mg 08/25/24 09:00 08/27/24 09:49 Duloxetine Hcl 60 Mg Capsule.Dr PO 60 mg DAILY NIDIA Administration Enoxaparin Sodium 40 mg 08/25/24 09:00 08/27/24 09:49 Enoxaparin 40 Mg/0.4 Ml Syringe SUB-Q 40 mg DAILY NIDIA Administration Glucagon 1 mg 08/24/24 15:25 Glucagon For Inj 1 Mg Vial IM PRN PRN Hypoglycemia Protocol Glucose 15 gm 08/24/24 15:25 Glucose Oral Gel 15 Gm Of Glucse In 37.5 Gm Tube PO PRN PRN Hypoglycemia Protocol Hydralazine HCl 10 mg 08/27/24 05:33 08/27/24 05:57 Hydralazine Hcl 20 Mg/Ml Vial IV PUSH 10 mg Q4H PRN Administration Blood Pressure - High Ceftriaxone Sodium 1 gm in 50 mls @ 100 mls/hr 08/25/24 09:00 08/27/24 09:50 Rocephin 1 Gm/Ns 50 Ml IVPB 100 mls/hr Q24H NIDIA Administration Dextrose 1,000 mls @ 100 mls/hr 08/24/24 15:25 Dextrose 5% 1,000 Ml IVPB PRN PRN Hypoglycemia Protocol Leflunomide 20 mg 08/25/24 09:00 08/27/24 09:49 Leflunomide 20 Mg Tablet PO 20 mg DAILY NIDIA Administration Levothyroxine Sodium 150 mcg 08/25/24 06:30 08/27/24 05:57 Levothyroxine Sodium 150 Mcg Tablet PO 150 mcg DAILY@0630 NIDIA Administration Metoprolol Tartrate 25 mg 08/25/24 09:00 08/27/24 09:48 Metoprolol Tartrate 25 Mg Tablet PO 25 mg DAILY NIDIA Administration Multivitamins/Minerals 15 ml 08/27/24 09:00 Multivit W/ Iron, Minerals 15 Ml Liquid (*Bkc) PO DAILY NIDIA Ondansetron HCl 4 mg 08/24/24 15:25 Ondansetron Inj 4 Mg/2 Ml Vial IV PUSH Q4H PRN Nausea Pantoprazole Sodium 40 mg 08/24/24 19:45 08/27/24 09:49 Pantoprazole 40 Mg Tablet PO 40 mg BID NIDIA Administration Perflutren Lipid Microsphere 0 ml 08/24/24 23:32 Perflutren Lipid Microspheres 1.5 Ml Vial Diluted To 10 Ml Total Volume IV PUSH 08/27/24 23:32 ONCE PRN adequate visualization Protocol Prednisone 5 mg 08/25/24 09:00 08/27/24 09:49 Prednisone 5 Mg Tablet PO 5 mg DAILY NIDIA Administration Risperidone 1 mg 08/24/24 21:00 08/26/24 20:14 Risperidone 1 Mg Tablet PO 1 mg HS NIDIA Administration Ropinirole HCl 1 mg 08/24/24 21:00 08/26/24 20:14 Ropinirole Hcl 1 Mg Tablet PO 1 mg HS NIDIA Administration Radiology Results: ITS Impressions Head CT 08/24/24 14:00 IMPRESSION: No acute intracranial findings. Chest X-Ray 08/24/24 14:08 IMPRESSION: No definite acute cardiopulmonary pathology. Opacity in the left lower lobe which may be due to elevation of the diaphragm or atelectasis. CT evaluation advised. Knee X-Ray 08/24/24 14:11 IMPRESSION: No acute osseous abnormality right knee. Severe osteoarthritic changes. Chest CT 08/24/24 14:58 IMPRESSION: No acute cardiopulmonary pathology. Elevation of the left hemidiaphragm. No masses noted. Sliding hiatus hernia. Ankle Brachial Index 08/25/24 16:25 IMPRESSION: Bilateral normal STEPHANIE. Venous Doppler Study 08/26/24 15:13 IMPRESSION: Negative bilateral lower extremity venous US. No deep vein thrombosis. Labs Labs: Laboratory Results - last 24 hr 08/27/24 05:40 WBC 4.3 L RBC 3.86 L Hgb 10.3 L Hct 35.0 L MCV 90.7 MCH 26.7 MCHC 29.4 L RDW 16.2 H Plt Count 183 MPV 10.5 H Sodium 140 Potassium 3.4 Chloride 111 H Carbon Dioxide 23 Anion Gap 6 BUN 12 Creatinine 0.70 Estim Creat Clear Calc 77 Estimated GFR > 60 Glucose 92 Calcium 8.8 Quality VTE Prophylaxis VTE prophylaxis: mechanical ordered and pharmacologic ordered
[2024-08-27] MEDS: TOPIRAMATE 100 MG TABLET PO (16:31)
[2024-08-27] MEDS: rOPINIRole HCL 1 MG TABLET PO (20:15)
[2024-08-27] MEDS: CEFDINIR 300 MG CAPSULE PO (20:15)
[2024-08-27] MEDS: risperiDONE 1 MG TABLET PO (20:15)
[2024-08-28] VITALS (9 sets, daily range): BP systolic 149–156; BP diastolic 62–78; PULSE 50–58; RESP 16; TEMP 36.6; O2SAT 94
[2024-08-28] MEDS: LEVOTHYROXINE SODIUM 150 MCG TABLET PO (05:00)
[2024-08-28 05:48] LABS: Hematocrit 35.6 % (37.0-47.0); Hemoglobin 10.4 g/dL (12.0-15.0); Mean Corpuscular HGB Conc 29.2 g/dl (32-36); Mean Corpuscular Hemoglobin 26.7 pg (26-34); Mean Corpuscular Volume 91.3 fl (80-100); Mean Platelet Volume 9.8 fl (7.4-10.4); Platelet Count Result 183 k/mm3 (150-375); Red Cell Distribution Width 16.4 % (11.5-14.5); White Blood Count 4.2 K/mm3 (4.5-10.0)
[2024-08-28 06:18] LABS: Anion Gap 7 mmol/L (4-12); Blood Urea Nitrogen 16 mg/dL (7-17); Calcium 8.9 mg/dL (8.4-10.2); Carbon Dioxide 24 mmol/L (22-30); Chloride 109 mmol/L (98-107); Estimated CRCL calculation 73 ml/min; Estimated Glomerular Filt Rate > 60; Glucose 92 mg/dL (65-110); Potassium 3.3 mmol/L (3.4-5.0); Sodium 140 mmol/L (137-145)
[2024-08-28] MEDS: LEFLUNOMIDE 20 MG TABLET PO (09:34)
[2024-08-28] MEDS: DOCUSATE SODIUM 100 MG CAPSULE PO ×2 (09:34→17:53)
[2024-08-28] MEDS: CEFDINIR 300 MG CAPSULE PO ×2 (09:34→19:54)
[2024-08-28] MEDS: predniSONE 5 MG TABLET PO (09:34)
[2024-08-28] MEDS: CITALOPRAM HYDROBROMIDE 20 MG TABLET PO (09:34)
[2024-08-28] MEDS: DULoxetine HCL 60 MG CAPSULE.DR PO (09:34)
[2024-08-28] MEDS: PANTOPRAZOLE 40 MG TABLET PO ×2 (09:34→17:53)
[2024-08-28] MEDS: TOPIRAMATE 100 MG TABLET PO ×3 (09:34→17:53)
[2024-08-28] MEDS: METOPROLOL TARTRATE 25 MG TABLET PO (09:34)
[2024-08-28] MEDS: ATORVASTATIN 20 MG TABLET PO (09:34)
[2024-08-28] MEDS: buPROPion HCL SR (12HR) 100 MG TABCR 200 MG PO ×2 (09:34→19:54)
[2024-08-28] MEDS: amLODIPine BESYLATE 10 MG TABLET PO (09:34)
[2024-08-28] MEDS: ENOXAPARIN 40 MG/0.4 ML SYRINGE SUB-Q (09:35)
[2024-08-28] MEDS: HYDROcodone/acetaminophen (*CRX) 5-325 MG TABLET 1 TAB PO (09:39)
--- NOTE | 2024-08-28 10:33 | P.CDI_ITS ---
CDI Query Clarification Request Patient with a BMI of 41.9 please provide a diagnosis to accompany this finding: * Overweight * Obesity * Morbid Obesity * Other/Unknown <Sheba Montoya RN - Last Filed: 08/28/24 10:33> Provider Comments Morbid Obesity <Denny Dumont MD - Last Filed: 08/28/24 14:14>
--- NOTE | 2024-08-28 10:33 | WPDCDIQUERY2 ---
CDI Query Clarification Request Patient with a BMI of 41.9 please provide a diagnosis to accompany this finding: Overweight Obesity Morbid Obesity Other/Unknown <Sheba Montoya RN - Last Filed: 08/28/24 10:33> Provider Comments Morbid Obesity <Denny Dumont MD - Last Filed: 08/28/24 14:14>
--- NOTE | 2024-08-28 12:49 | PC.NURSE ---
Pt voided 400mls via purwick. PVR completed with 0 residual found.
--- NOTE | 2024-08-28 14:14 | P.PNIM_ITS ---
Progress Note: A&P Assessment and Plan (1) Multiple falls: Code(s): R29.6 - Repeated falls Status: Acute Assessment and Plan: Failure thrive versus infection versus deconditioning versus other PT OT evaluation, recommended rehab ABX for UTI Anemia workup (2) UTI (urinary tract infection): Qualifiers: Hematuria presence: with hematuria Urinary tract infection type: acute cystitis Qualified Code(s): N30.01 - Acute cystitis with hematuria Code(s): N39.0 - Urinary tract infection, site not specified Status: Acute Assessment and Plan: Omnicef Culture positive for E coli and Klebsiella pansensitive (3) Generalized weakness: Code(s): R53.1 - Weakness Status: Acute Assessment and Plan: See plan above (4) Anemia: Code(s): D64.9 - Anemia, unspecified Status: Acute Assessment and Plan: Anemia workup No signs of acute bleeding Transfuse for hemoglobin less than 7, no need to transfuse at this time (5) Rheumatoid arthritis: Code(s): M06.9 - Rheumatoid arthritis, unspecified Status: Acute Assessment and Plan: Okay to restart methotrexate and prednisone (6) Hypertension: Code(s): I10 - Essential (primary) hypertension Status: Acute Assessment and Plan: Continue Norvasc and metoprolol (7) CHF (congestive heart failure): Code(s): I50.9 - Heart failure, unspecified Status: Acute Assessment and Plan: Gerade 1 diastolic heart failure Patient does not appear to be on diuretics, she has 2+ pedal edema lower ext US neg for DVT (8) Hyperlipemia: Code(s): E78.5 - Hyperlipidemia, unspecified Status: Acute Assessment and Plan: Home Lipitor (9) Hypothyroidism: Code(s): E03.9 - Hypothyroidism, unspecified Status: Acute Assessment and Plan: Home Synthroid (10) Paresthesia: Code(s): R20.2 - Paresthesia of skin Status: Acute Assessment and Plan: Last known well 3 days before admission Head CT with no acute finding can not get MRI. She has a stimulator Aspirin neurology on board Subjective Date/time seen: 08/28/24 14:14 Interval history: per HPi: 69-year-old patient with past medical history of COPD, CHF, hypertension, hypothyroidism and bipolar presents the hospital with weakness, falls and right knee pain. Patient complains of generalized weakness increasing over the last week from baseline she is finding it hard care for herself. Upon asking the patient more questions she states that she knows she had numbness and tingling of her right leg and arm about 3 days ago. She states that she has not got it checked out. Lab work shows anemia at 11.2, chloride 110, BUN of 19, approach BNP of 548, UA shows cloudy positive for nitrates 2+ leukocyte esterase over 100 wbc's and 4+ bacteria. Chest CT shows no acute cardiopulmonary process, right knee x-ray with no acute process. Patient was started on Rocephin and admitted for UTI. 08/25/24 Ta was seen and examined at bedside. she is feeling fine. still has R knee pain and leg swelling. will get Us to R/O DVT OT/PT on board 08/26/24 Patient was seen and examined bedside. She is feeling better. Her leg is slightly improving. Waiting for Neurology team recommendation. Lower extremity Doppler pending DC echo as patient had echo about 2 months ago 08/27/24 Patient was seen and examined at bedside. She is feeling better. Her weakness is slightly better. Denies any chest pain, shortness off breath, abdominal pain, nausea vomiting. Right leg swelling is better. Lower extremity Doppler negative for DVT. PT OT recommended rehab Waiting for Neurology recommendation 08/28/24 Patient was seen and examined at bedside. She is feeling better. Denies any chest pain, shortness of breath, abdominal pain, nausea vomiting. Neurology team recommended MRI of spine,which I do not think we can with her back stimulator Review of Systems Review of Systems: 12 systems were reviewed and are negativ e except for as per HPI. Exam Narrative: General: well appearing, appears stated age. HEENT: normocephalic, atraumatic. Mucous membranes moist. EOMI, PERRLA, bilateral sclera anicteric, no conjunctival injection. Neck supple without JVD, lymphadenopathy, or bruit. Respiratory: clear to ascultation bilaterally. No rales/rhonic/wheezes. Cardiovascular: Regular rate and rhythm, normal S1-S2 upon ascultation. No murmurs, rubs, or clicks. PMI is nondisplaced, capillary refill less than 3 second. Abdomen: Soft, round, no pulsatile masses, nondistended and nontender. No rebound, no guarding. No CVA tenderness, no hepatosplenomegaly. Bowel sounds present to all four quadrants. No high pitch or tinkling sounds, resonant to percussion. Extremities: No cyanosis, clubbing, present. Pulses are palpable 2/2. Active ROM to all four extremities. R leg edema Neuro: Alert and orientated x 4. PERRLA. Cranial nerves 2-12 intact without focal deficit. Skin: Warm, dry, and intact, without rash, erythema, or lesion. Psych: pleasant, cooperative, normal speech, normal affect, no hallucinations, no dysarthia Objective Data Vital Signs Vital Signs: Vital Signs - 24 hr 08/27/24 15:29 08/27/24 20:00 08/27/24 20:00 Temperature 98.0 F Pulse Rate 52 L 51 L Respiratory Rate 18 Blood Pressure 165/66 H Pulse Oximetry 95 Oxygen Delivery Room Air 08/27/24 22:00 08/28/24 00:00 08/28/24 04:00 Temperature 98.1 F Pulse Rate 57 L 50 L 52 L Respiratory Rate 16 Blood Pressure 146/71 H Pulse Oximetry 95 Oxygen Delivery 08/28/24 06:00 08/28/24 08:00 08/28/24 08:00 Temperature 97.9 F Pulse Rate 53 L 53 L Respiratory Rate 16 Blood Pressure 153/78 H Pulse Oximetry 94 Oxygen Delivery Room Air Intake/Output Intake/Output: Intake & Output 08/25/24 08/26/24 08/27/24 08/28/24 23:59 23:59 23:59 23:59 Intake Total 3092 1592.5 1550 780 Output Total 700 2550 1900 1200 Balance 2392 -957.5 -350 -420 Meds/Results Medications: Active Medications Generic Name Dose Route Start Last Admin Trade Name Freq PRN Reason Stop Dose Admin Acetaminophen 650 mg 08/24/24 15:25 Acetaminophen 325 Mg Tablet PO Q4H PRN Mild Pain (1-3) or Fever Hydrocodone Bitart/Acetaminophen 1 tab 08/24/24 17:17 08/28/24 09:39 Hydrocodone/Acetaminophen (*Crx) 5-325 Mg Tablet PO 1 tab Q4H PRN Administration Moderate Pain (4-6) Albuterol 2 puff 08/24/24 19:36 Albuterol Sulfate (*Sp) Aerosol 1 Puff INHALATION QID PRN Shortness Of Breath Or Wheezing Amlodipine Besylate 10 mg 08/27/24 09:00 08/28/24 09:34 Amlodipine Besylate 10 Mg Tablet PO 10 mg DAILY NIDIA Administration Atorvastatin Calcium 20 mg 08/25/24 09:00 08/28/24 09:34 Atorvastatin 20 Mg Tablet PO 20 mg DAILY NIDIA Administration Bupropion HCl 200 mg 08/24/24 21:00 08/28/24 09:34 Bupropion Hcl Sr (12hr) 100 Mg Tabcr PO 200 mg Q12HR NIDIA Administration Cefdinir 300 mg 08/27/24 21:00 08/28/24 09:34 Cefdinir 300 Mg Capsule PO 300 mg Q12HR NIDIA Administration Citalopram Hydrobromide 20 mg 08/25/24 09:00 08/28/24 09:34 Citalopram Hydrobromide 20 Mg Tablet PO 20 mg DAILY NIDIA Administration Dextrose 12.5 gm 08/24/24 15:25 Dextrose 50% 25 Gm/50 Ml Syringe IV PUSH PRN PRN Hypoglycemia Protocol Docusate Sodium 100 mg 08/25/24 09:00 08/28/24 09:34 Docusate Sodium 100 Mg Capsule PO 100 mg BID NIDIA Administration Duloxetine HCl 60 mg 08/25/24 09:00 08/28/24 09:34 Duloxetine Hcl 60 Mg Capsule.Dr PO 60 mg DAILY NIDIA Administration Enoxaparin Sodium 40 mg 08/25/24 09:00 08/28/24 09:35 Enoxaparin 40 Mg/0.4 Ml Syringe SUB-Q 40 mg DAILY NIDIA Administration Glucagon 1 mg 08/24/24 15:25 Glucagon For Inj 1 Mg Vial IM PRN PRN Hypoglycemia Protocol Glucose 15 gm 08/24/24 15:25 Glucose Oral Gel 15 Gm Of Glucse In 37.5 Gm Tube PO PRN PRN Hypoglycemia Protocol Hydralazine HCl 10 mg 08/27/24 05:33 08/27/24 05:57 Hydralazine Hcl 20 Mg/Ml Vial IV PUSH 10 mg Q4H PRN Administration Blood Pressure - High Dextrose 1,000 mls @ 100 mls/hr 08/24/24 15:25 Dextrose 5% 1,000 Ml IVPB PRN PRN Hypoglycemia Protocol Leflunomide 20 mg 08/25/24 09:00 08/28/24 09:34 Leflunomide 20 Mg Tablet PO 20 mg DAILY NIDIA Administration Levothyroxine Sodium 150 mcg 08/25/24 06:30 08/28/24 05:00 Levothyroxine Sodium 150 Mcg Tablet PO 150 mcg DAILY@0630 NIDIA Administration Metoprolol Tartrate 25 mg 08/25/24 09:00 08/28/24 09:34 Metoprolol Tartrate 25 Mg Tablet PO 25 mg DAILY NIDIA Administration Multivitamins/Minerals 15 ml 08/27/24 09:00 08/28/24 09:35 Multivit W/ Iron, Minerals 15 Ml Liquid (*Bkc) PO Not Given DAILY NIDIA Ondansetron HCl 4 mg 08/24/24 15:25 Ondansetron Inj 4 Mg/2 Ml Vial IV PUSH Q4H PRN Nausea Pantoprazole Sodium 40 mg 08/24/24 19:45 08/28/24 09:34 Pantoprazole 40 Mg Tablet PO 40 mg BID NIDIA Administration Prednisone 5 mg 08/25/24 09:00 08/28/24 09:34 Prednisone 5 Mg Tablet PO 5 mg DAILY NIDIA Administration Risperidone 1 mg 08/24/24 21:00 08/27/24 20:15 Risperidone 1 Mg Tablet PO 1 mg HS NIDIA Administration Ropinirole HCl 1 mg 08/24/24 21:00 08/27/24 20:15 Ropinirole Hcl 1 Mg Tablet PO 1 mg HS NIDIA Administration Topiramate 100 mg 08/27/24 17:00 08/28/24 13:49 Topiramate 100 Mg Tablet PO 100 mg TID NIDIA Administration Radiology Results: ITS Impressions Head CT 08/24/24 14:00 IMPRESSION: No acute intracranial findings. Chest X-Ray 08/24/24 14:08 IMPRESSION: No definite acute cardiopulmonary pathology. Opacity in the left lower lobe which may be due to elevation of the diaphragm or atelectasis. CT evaluation advised. Knee X-Ray 08/24/24 14:11 IMPRESSION: No acute osseous abnormality right knee. Severe osteoarthritic changes. Chest CT 08/24/24 14:58 IMPRESSION: No acute cardiopulmonary pathology. Elevation of the left hemidiaphragm. No masses noted. Sliding hiatus hernia. Ankle Brachial Index 08/25/24 16:25 IMPRESSION: Bilateral normal STEPHANIE. Venous Doppler Study 08/26/24 15:13 IMPRESSION: Negative bilateral lower extremity venous US. No deep vein thrombosis. Labs Labs: Laboratory Results - last 24 hr 08/28/24 05:16 WBC 4.2 L RBC 3.90 L Hgb 10.4 L Hct 35.6 L MCV 91.3 MCH 26.7 MCHC 29.2 L RDW 16.4 H Plt Count 183 MPV 9.8 Sodium 140 Potassium 3.3 L Chloride 109 H Carbon Dioxide 24 Anion Gap 7 BUN 16 Creatinine 0.74 Estim Creat Clear Calc 73 Estimated GFR > 60 Glucose 92 Calcium 8.9 Quality VTE Prophylaxis VTE prophylaxis: mechanical ordered and pharmacologic ordered
[2024-08-28] MEDS: POTASSIUM CHLORIDE 20 MEQ PACKET (FOR LIQUID) 40 MEQ PO (14:34)
--- NOTE | 2024-08-28 16:14 | PC.NURSE ---
Provider notified MRI cancelled due to pain stimulator in pt's back.
[2024-08-28] MEDS: risperiDONE 1 MG TABLET PO (19:54)
[2024-08-28] MEDS: rOPINIRole HCL 1 MG TABLET PO (19:54)
[2024-08-29] VITALS (9 sets, daily range): BP systolic 131–155; BP diastolic 60–67; PULSE 54–61; RESP 16–20; TEMP 36.4–36.6; O2SAT 95–97
[2024-08-29] MEDS: HYDROcodone/acetaminophen (*CRX) 5-325 MG TABLET 1 TAB PO ×2 (04:28→21:01)
[2024-08-29] MEDS: LEVOTHYROXINE SODIUM 150 MCG TABLET PO (04:30)
[2024-08-29 05:50] LABS: Hematocrit 34.9 % (37.0-47.0); Hemoglobin 10.4 g/dL (12.0-15.0); Mean Corpuscular HGB Conc 29.8 g/dl (32-36); Mean Corpuscular Hemoglobin 27.1 pg (26-34); Mean Corpuscular Volume 90.9 fl (80-100); Mean Platelet Volume 10.3 fl (7.4-10.4); Platelet Count Result 187 k/mm3 (150-375); Red Blood Count 3.84 M/mm3 (4.2-5.4); Red Cell Distribution Width 16.1 % (11.5-14.5); White Blood Count 4.1 K/mm3 (4.5-10.0)
[2024-08-29 06:11] LABS: Anion Gap 7 mmol/L (4-12); Blood Urea Nitrogen 18 mg/dL (7-17); Calcium 8.7 mg/dL (8.4-10.2); Carbon Dioxide 23 mmol/L (22-30); Chloride 110 mmol/L (98-107); Estimated CRCL calculation 74 ml/min; Estimated Glomerular Filt Rate > 60; Glucose 98 mg/dL (65-110); Potassium 3.6 mmol/L (3.4-5.0); Sodium 140 mmol/L (137-145)
[2024-08-29] MEDS: DULoxetine HCL 60 MG CAPSULE.DR PO (09:50)
[2024-08-29] MEDS: predniSONE 5 MG TABLET PO (09:50)
[2024-08-29] MEDS: PANTOPRAZOLE 40 MG TABLET PO ×2 (09:50→17:15)
[2024-08-29] MEDS: buPROPion HCL SR (12HR) 100 MG TABCR 200 MG PO ×2 (09:50→21:01)
[2024-08-29] MEDS: ATORVASTATIN 20 MG TABLET PO (09:50)
[2024-08-29] MEDS: MULTIVIT W/ IRON, MINERALS 15 ML LIQUID (*BKC) PO (09:50)
[2024-08-29] MEDS: ENOXAPARIN 40 MG/0.4 ML SYRINGE SUB-Q (09:50)
[2024-08-29] MEDS: CEFDINIR 300 MG CAPSULE PO ×2 (09:50→21:01)
[2024-08-29] MEDS: LEFLUNOMIDE 20 MG TABLET PO (09:50)
[2024-08-29] MEDS: DOCUSATE SODIUM 100 MG CAPSULE PO ×2 (09:50→17:15)
[2024-08-29] MEDS: TOPIRAMATE 100 MG TABLET PO ×3 (09:50→17:15)
[2024-08-29] MEDS: CITALOPRAM HYDROBROMIDE 20 MG TABLET PO (09:51)
[2024-08-29] MEDS: amLODIPine BESYLATE 10 MG TABLET PO (09:51)
[2024-08-29] MEDS: METOPROLOL TARTRATE 25 MG TABLET PO (09:51)
--- NOTE | 2024-08-29 15:00 | P.PNIM_ITS ---
Progress Note: A&P Assessment and Plan (1) Multiple falls: Code(s): R29.6 - Repeated falls Status: Acute Assessment and Plan: Failure thrive versus infection versus deconditioning versus other PT OT evaluation, recommended rehab ABX for UTI Anemia workup (2) UTI (urinary tract infection): Qualifiers: Hematuria presence: with hematuria Urinary tract infection type: acute cystitis Qualified Code(s): N30.01 - Acute cystitis with hematuria Code(s): N39.0 - Urinary tract infection, site not specified Status: Acute Assessment and Plan: Omnicef Culture positive for E coli and Klebsiella pansensitive (3) Generalized weakness: Code(s): R53.1 - Weakness Status: Acute Assessment and Plan: See plan above (4) Anemia: Code(s): D64.9 - Anemia, unspecified Status: Acute Assessment and Plan: Anemia workup No signs of acute bleeding Transfuse for hemoglobin less than 7, no need to transfuse at this time (5) Rheumatoid arthritis: Code(s): M06.9 - Rheumatoid arthritis, unspecified Status: Acute Assessment and Plan: Okay to restart methotrexate and prednisone (6) Hypertension: Code(s): I10 - Essential (primary) hypertension Status: Acute Assessment and Plan: Continue Norvasc and metoprolol (7) CHF (congestive heart failure): Code(s): I50.9 - Heart failure, unspecified Status: Acute Assessment and Plan: Gerade 1 diastolic heart failure Patient does not appear to be on diuretics, she has 2+ pedal edema lower ext US neg for DVT (8) Hyperlipemia: Code(s): E78.5 - Hyperlipidemia, unspecified Status: Acute Assessment and Plan: Home Lipitor (9) Hypothyroidism: Code(s): E03.9 - Hypothyroidism, unspecified Status: Acute Assessment and Plan: Home Synthroid (10) Paresthesia: Code(s): R20.2 - Paresthesia of skin Status: Acute Assessment and Plan: Last known well 3 days before admission Head CT with no acute finding can not get MRI. She has a stimulator Aspirin neurology on board. dc plan pending neurology recs Subjective Date/time seen: 08/29/24 15:00 Interval history: per HPi: 69-year-old patient with past medical history of COPD, CHF, hypertension, hypothyroidism and bipolar presents the hospital with weakness, falls and right knee pain. Patient complains of generalized weakness increasing over the last week from baseline she is finding it hard care for herself. Upon asking the patient more questions she states that she knows she had numbness and tingling of her right leg and arm about 3 days ago. She states that she has not got it checked out. Lab work shows anemia at 11.2, chloride 110, BUN of 19, approach BNP of 548, UA shows cloudy positive for nitrates 2+ leukocyte esterase over 100 wbc's and 4+ bacteria. Chest CT shows no acute cardiopulmonary process, right knee x-ray with no acute process. Patient was started on Rocephin and admitted for UTI. 08/25/24 Ta was seen and examined at bedside. she is feeling fine. still has R knee pain and leg swelling. will get Us to R/O DVT OT/PT on board 08/26/24 Patient was seen and examined bedside. She is feeling better. Her leg is slightly improving. Waiting for Neurology team recommendation. Lower extremity Doppler pending DC echo as patient had echo about 2 months ago 08/27/24 Patient was seen and examined at bedside. She is feeling better. Her weakness is slightly better. Denies any chest pain, shortness off breath, abdominal pain, nausea vomiting. Right leg swelling is better. Lower extremity Doppler negative for DVT. PT OT recommended rehab Waiting for Neurology recommendation 08/28/24 Patient was seen and examined at bedside. She is feeling better. Denies any chest pain, shortness of breath, abdominal pain, nausea vomiting. Neurology team recommended MRI of spine,which I do not think we can with her juan david k stimulator 08/29/24 Patient was seen and examined at bedside. she is feeling better. her weakness getting better. was not able to get MRI. will wait for neurology recs. Review of Systems Review of Systems: 12 systems were reviewed and are negativ e except for as per HPI. Exam Narrative: General: well appearing, appears stated age. HEENT: normocephalic, atraumatic. Mucous membranes moist. EOMI, PERRLA, b ilateral sclera anicteric, no conjunctival injection. Neck supple without JVD, lymphadenopathy, or bruit. Respiratory: clear to ascultation bilaterally. No rales/rhonic/wheezes. Cardiovascular: Regular rate and rhythm, normal S1-S2 upon ascultation. No murmurs, rubs, or clicks. PMI is nondisplaced, capillary refill less than 3 second. Abdomen: Soft, round, no pulsatile masses, nondistended and nontender. No rebound, no guarding. No CVA tenderness, no hepatosplenomegaly. Bowel sounds present to all four quadrants. No high pitch or tinkling sounds, resonant to percussion. Extremities: No cyanosis, clubbing, present. Pulses are palpable 2/2. Active ROM to all four extremities. R leg edema Neuro: Alert and orientated x 4. PERRLA. Cranial nerves 2-12 intact without focal deficit. Skin: Warm, dry, and intact, without rash, erythema, or lesion. Psych: pleasant, cooperative, normal speech, normal affect, no hallucinations, no dysarthia Objective Data Vital Signs Vital Signs: Vital Signs - 24 hr 08/28/24 16:00 08/28/24 20:00 08/28/24 20:00 Temperature Pulse Rate 55 L 53 L Respiratory Rate Blood Pressure Pulse Oximetry Oxygen Delivery Room Air 08/28/24 21:50 08/29/24 00:00 08/29/24 04:00 Temperature 97.8 F Pulse Rate 55 L 55 L 61 Respiratory Rate 16 Blood Pressure 156/62 H Pulse Oximetry 94 Oxygen Delivery 08/29/24 06:00 08/29/24 08:00 08/29/24 08:00 Temperature 97.8 F Pulse Rate 57 L 57 L Respiratory Rate 16 Blood Pressure 154/67 H Pulse Oximetry 95 Oxygen Delivery Room Air Intake/Output Intake/Output: Intake & Output 08/26/24 08/27/24 08/28/24 08/29/24 23:59 23:59 23:59 23:59 Intake Total 1592.5 1550 1320 900 Output Total 2550 1900 1700 1200 Balance -957.5 -350 -380 -300 Meds/Results Medications: Active Medications Generic Name Dose Route Start Last Admin Trade Name Freq PRN Reason Stop Dose Admin Acetaminophen 650 mg 08/24/24 15:25 Acetaminophen 325 Mg Tablet PO Q4H PRN Mild Pain (1-3) or Fever Hydrocodone Bitart/Acetaminophen 1 tab 08/24/24 17:17 08/29/24 04:28 Hydrocodone/Acetaminophen (*Crx) 5-325 Mg Tablet PO 1 tab Q4H PRN Administration Moderate Pain (4-6) Albuterol 2 puff 08/24/24 19:36 Albuterol Sulfate (*Sp) Aerosol 1 Puff INHALATION QID PRN Shortness Of Breath Or Wheezing Amlodipine Besylate 10 mg 08/27/24 09:00 08/29/24 09:51 Amlodipine Besylate 10 Mg Tablet PO 10 mg DAILY NIDIA Administration Atorvastatin Calcium 20 mg 08/25/24 09:00 08/29/24 09:50 Atorvastatin 20 Mg Tablet PO 20 mg DAILY NIDIA Administration Bupropion HCl 200 mg 08/24/24 21:00 08/29/24 09:50 Bupropion Hcl Sr (12hr) 100 Mg Tabcr PO 200 mg Q12HR NIDIA Administration Cefdinir 300 mg 08/27/24 21:00 08/29/24 09:50 Cefdinir 300 Mg Capsule PO 300 mg Q12HR NIDIA Administration Citalopram Hydrobromide 20 mg 08/25/24 09:00 08/29/24 09:51 Citalopram Hydrobromide 20 Mg Tablet PO 20 mg DAILY NIDIA Administration Dextrose 12.5 gm 08/24/24 15:25 Dextrose 50% 25 Gm/50 Ml Syringe IV PUSH PRN PRN Hypoglycemia Protocol Docusate Sodium 100 mg 08/25/24 09:00 08/29/24 09:50 Docusate Sodium 100 Mg Capsule PO 100 mg BID NIDIA Administration Duloxetine HCl 60 mg 08/25/24 09:00 08/29/24 09:50 Duloxetine Hcl 60 Mg Capsule.Dr PO 60 mg DAILY NIDIA Administration Enoxaparin Sodium 40 mg 08/25/24 09:00 08/29/24 09:50 Enoxaparin 40 Mg/0.4 Ml Syringe SUB-Q 40 mg DAILY NIDIA Administration Glucagon 1 mg 08/24/24 15:25 Glucagon For Inj 1 Mg Vial IM PRN PRN Hypoglycemia Protocol Glucose 15 gm 08/24/24 15:25 Glucose Oral Gel 15 Gm Of Glucse In 37.5 Gm Tube PO PRN PRN Hypoglycemia Protocol Hydralazine HCl 10 mg 08/27/24 05:33 08/27/24 05:57 Hydralazine Hcl 20 Mg/Ml Vial IV PUSH 10 mg Q4H PRN Administration Blood Pressure - High Dextrose 1,000 mls @ 100 mls/hr 08/24/24 15:25 Dextrose 5% 1,000 Ml IVPB PRN PRN Hypoglycemia Protocol Leflunomide 20 mg 08/25/24 09:00 08/29/24 09:50 Leflunomide 20 Mg Tablet PO 20 mg DAILY NIDIA Administration Levothyroxine Sodium 150 mcg 08/25/24 06:30 08/29/24 04:30 Levothyroxine Sodium 150 Mcg Tablet PO 150 mcg DAILY@0630 NIDIA Administration Metoprolol Tartrate 25 mg 08/25/24 09:00 08/29/24 09:51 Metoprolol Tartrate 25 Mg Tablet PO 25 mg DAILY NIDIA Administration Multivitamins/Minerals 15 ml 08/27/24 09:00 08/29/24 09:50 Multivit W/ Iron, Minerals 15 Ml Liquid (*Bkc) PO 15 ml DAILY NIDIA Administration Ondansetron HCl 4 mg 08/24/24 15:25 Ondansetron Inj 4 Mg/2 Ml Vial IV PUSH Q4H PRN Nausea Pantoprazole Sodium 40 mg 08/24/24 19:45 08/29/24 09:50 Pantoprazole 40 Mg Tablet PO 40 mg BID NIDIA Administration Prednisone 5 mg 08/25/24 09:00 08/29/24 09:50 Prednisone 5 Mg Tablet PO 5 mg DAILY NIDIA Administration Risperidone 1 mg 08/24/24 21:00 08/28/24 19:54 Risperidone 1 Mg Tablet PO 1 mg HS NIDIA Administration Ropinirole HCl 1 mg 08/24/24 21:00 08/28/24 19:54 Ropinirole Hcl 1 Mg Tablet PO 1 mg HS NIDIA Administration Topiramate 100 mg 08/27/24 17:00 08/29/24 14:25 Topiramate 100 Mg Tablet PO 100 mg TID NIDIA Administration Radiology Results: ITS Impressions Head CT 08/24/24 14:00 IMPRESSION: No acute intracranial findings. Chest X-Ray 08/24/24 14:08 IMPRESSION: No definite acute cardiopulmonary pathology. Opacity in the left lower lobe which may be due to elevation of the diaphragm or atelectasis. CT evaluation advised. Knee X-Ray 08/24/24 14:11 IMPRESSION: No acute osseous abnormality right knee. Severe osteoarthritic changes. Chest CT 08/24/24 14:58 IMPRESSION: No acute cardiopulmonary pathology. Elevation of the left hemidiaphragm. No masses noted. Sliding hiatus hernia. Ankle Brachial Index 08/25/24 16:25 IMPRESSION: Bilateral normal STEPHANIE. Venous Doppler Study 08/26/24 15:13 IMPRESSION: Negative bilateral lower extremity venous US. No deep vein thrombosis. Labs Labs: Laboratory Results - last 24 hr 08/29/24 05:35 WBC 4.1 L RBC 3.84 L Hgb 10.4 L Hct 34.9 L MCV 90.9 MCH 27.1 MCHC 29.8 L RDW 16.1 H Plt Count 187 MPV 10.3 Sodium 140 Potassium 3.6 Chloride 110 H Carbon Dioxide 23 Anion Gap 7 BUN 18 H Creatinine 0.73 Estim Creat Clear Calc 74 Estimated GFR > 60 Glucose 98 Calcium 8.7 Quality VTE Prophylaxis VTE prophylaxis: mechanical ordered and pharmacologic ordered
[2024-08-29] MEDS: risperiDONE 1 MG TABLET PO (21:01)
[2024-08-29] MEDS: rOPINIRole HCL 1 MG TABLET PO (21:01)
[2024-08-30] VITALS (10 sets, daily range): BP systolic 146–151; BP diastolic 63–67; PULSE 48–59; RESP 16–18; TEMP 36.3–36.6; O2SAT 94–96
[2024-08-30] MEDS: LEVOTHYROXINE SODIUM 150 MCG TABLET PO (05:23)
[2024-08-30] MEDS: HYDROcodone/acetaminophen (*CRX) 5-325 MG TABLET 1 TAB PO ×2 (05:23→20:51)
[2024-08-30 05:43] LABS: Hematocrit 35.8 % (37.0-47.0); Hemoglobin 10.5 g/dL (12.0-15.0); Mean Corpuscular HGB Conc 29.3 g/dl (32-36); Mean Platelet Volume 10.4 fl (7.4-10.4); Platelet Count Result 202 k/mm3 (150-375); Red Blood Count 3.89 M/mm3 (4.2-5.4); Red Cell Distribution Width 16.2 % (11.5-14.5); White Blood Count 3.9 K/mm3 (4.5-10.0)
[2024-08-30 06:37] LABS: Anion Gap 7 mmol/L (4-12); Blood Urea Nitrogen 22 mg/dL (7-17); Calcium 8.8 mg/dL (8.4-10.2); Carbon Dioxide 25 mmol/L (22-30); Chloride 107 mmol/L (98-107); Estimated CRCL calculation 63 ml/min; Estimated Glomerular Filt Rate > 60; Glucose 90 mg/dL (65-110); Potassium 3.5 mmol/L (3.4-5.0); Sodium 139 mmol/L (137-145)
[2024-08-30] MEDS: predniSONE 5 MG TABLET PO (09:28)
[2024-08-30] MEDS: CITALOPRAM HYDROBROMIDE 20 MG TABLET PO (09:28)
[2024-08-30] MEDS: amLODIPine BESYLATE 10 MG TABLET PO (09:28)
[2024-08-30] MEDS: DOCUSATE SODIUM 100 MG CAPSULE PO ×2 (09:29→17:19)
[2024-08-30] MEDS: METOPROLOL TARTRATE 25 MG TABLET PO (09:29)
[2024-08-30] MEDS: LEFLUNOMIDE 20 MG TABLET PO (09:29)
[2024-08-30] MEDS: DULoxetine HCL 60 MG CAPSULE.DR PO (09:29)
[2024-08-30] MEDS: CEFDINIR 300 MG CAPSULE PO ×2 (09:29→20:51)
[2024-08-30] MEDS: TOPIRAMATE 100 MG TABLET PO ×3 (09:29→17:19)
[2024-08-30] MEDS: PANTOPRAZOLE 40 MG TABLET PO ×2 (09:29→17:19)
[2024-08-30] MEDS: ATORVASTATIN 20 MG TABLET PO (09:30)
[2024-08-30] MEDS: MULTIVIT W/ IRON, MINERALS 15 ML LIQUID (*BKC) PO (09:30)
[2024-08-30] MEDS: ENOXAPARIN 40 MG/0.4 ML SYRINGE SUB-Q (09:30)
[2024-08-30] MEDS: buPROPion HCL SR (12HR) 100 MG TABCR 200 MG PO ×2 (09:30→20:51)
--- NOTE | 2024-08-30 14:48 | P.DS_ITS ---
DS: Admitting Diagnosis Discharge Date 08/31/24 Admitting Diagnosis weakness DS: Discharge Diagnosis Discharge Diagnosis (1) Multiple falls: Code(s): R29.6 - Repeated falls Status: Acute Assessment and Plan: Failure thrive versus infection versus deconditioning versus other PT OT evaluation, recommended rehab ABX for UTI (2) UTI (urinary tract infection): Qualifiers: Hematuria presence: with hematuria Urinary tract infection type: acute cystitis Qualified Code(s): N30.01 - Acute cystitis with hematuria Code(s): N39.0 - Urinary tract infection, site not specified Status: Acute Assessment and Plan: Omnicef Culture positive for E coli and Klebsiella pansensitive (3) Generalized weakness: Code(s): R53.1 - Weakness Status: Acute Assessment and Plan: See plan above (4) Anemia: Code(s): D64.9 - Anemia, unspecified Status: Acute Assessment and Plan: Anemia workup No signs of acute bleeding Transfuse for hemoglobin less than 7, no need to transfuse at this time (5) Rheumatoid arthritis: Code(s): M06.9 - Rheumatoid arthritis, unspecified Status: Acute Assessment and Plan: Okay to restart methotrexate and prednisone (6) Hypertension: Code(s): I10 - Essential (primary) hypertension Status: Acute Assessment and Plan: Continue Norvasc and metoprolol (7) CHF (congestive heart failure): Code(s): I50.9 - Heart failure, unspecified Status: Acute Assessment and Plan: Gerade 1 diastolic heart failure Patient does not appear to be on diuretics, she has 2+ pedal edema which imrpoved lower ext US neg for DVT (8) Hyperlipemia: Code(s): E78.5 - Hyperlipidemia, unspecified Status: Acute Assessment and Plan: Home Lipitor (9) Hypothyroidism: Code(s): E03.9 - Hypothyroidism, unspecified Status: Acute Assessment and Plan: Home Synthroid (10) Paresthesia: Code(s): R20.2 - Paresthesia of skin Status: Acute Assessment and Plan: Last known well 3 days before admission Head CT with no acute finding can not get MRI. She has a stimulator Aspirin CT:Mild cervical spondylosis with C4-C7 anterior and posterior spinal fusion with anterior plate and screw fixation neurology team on board. follow with neurology as outpatient DS: Summary Hospital Course Hospital Course: per HPi: 69-year-old patient with past medical history of COPD, CHF, hypertension, hypothyroidism and bipolar presents the hospital with weakness, falls and right knee pain. Patient complains of generalized weakness increasing over the last week from baseline she is finding it hard care for herself. Upon asking the patient more questions she states that she knows she had numbness and tingling of her right leg and arm about 3 days ago. She states that she has not got it checked out. Lab work shows anemia at 11.2, chloride 110, BUN of 19, approach BNP of 548, UA shows cloudy positive for nitrates 2+ leukocyte esterase over 100 wbc's and 4+ bacteria. Chest CT shows no acute cardiopulmonary process, right knee x-ray with no acute process. Patient was started on Rocephin and admitted for UTI. 08/25/24 still has R knee pain and leg swelling. will get Us to R/O DVT OT/PT on board 08/27/24 . Right leg swelling is better. Lower extremity Doppler negative for DVT. PT OT recommended rehab 08/31/24 Patient was seen and examined at bedside. She is feeling better. Her weakness is slightly better. Denies any chest pain, shortness off breath, abdominal pain, nausea vomiting. neurology team on board recs to get Ct neck which was was neg for acute abnormality. patient needs to follow with neurology as outpatient. Status at Discharge Overall status at discharge: patient is progressing back to baseline Time Spent with Patient Time attestation: Total time spent providing and/or coordinating discharge services: Time spent: Greater than 30 minutes Exam Narrative: General: well appearing, appears stated age. HEENT: normocephalic, atraumatic. Mucous membranes moist. EOMI, PERRLA, bilateral sclera anicteric, no conjunctival injection. Neck supple without JVD, lymphadenopathy, or bruit. Respiratory: clear to ascultation bilaterally. No rales/rhonic/wheezes. Cardiovascular: Regular rate and rhythm, normal S1-S2 upon ascultation. No murmurs, rubs, or clicks. PMI is nondisplaced, capillary refill less than 3 second. Abdomen: Soft, round, no pulsatile masses, nondistended and nontender. No rebound, no guarding. No CVA tenderness, no hepatosplenomegaly. Bowel sounds present to all four quadrants. No high pitch or tinkling sounds, resonant to percussion. Extremities: No cyanosis, clubbing, present. Pulses are palpable 2/2. Active ROM to all four extremities. R leg edema Neuro: Alert and orientated x 4. PERRLA. Cranial nerves 2-12 intact without focal deficit. Skin: Warm, dry, and intact, without rash, erythema, or lesion. Psych: pleasant, cooperative, normal speech, normal affect, no hallucinations, no dysarthia DS: Data Data Completed and Pending Labs on day of discharge: Labs from last 24 hours 08/30/24 05:24 WBC 3.9 L RBC 3.89 L Hgb 10.5 L Hct 35.8 L MCV 92.0 MCH 27.0 MCHC 29.3 L RDW 16.2 H Plt Count 202 MPV 10.4 Sodium 139 Potassium 3.5 Chloride 107 Carbon Dioxide 25 Anion Gap 7 BUN 22 H Creatinine 0.87 Estim Creat Clear Calc 63 Estimated GFR > 60 Glucose 90 Calcium 8.8 Discharge Plan Discharge Attending physician on discharge: Denny Dumont Consulting providers: Norberto Clark; Mundo Lowe Discharging Clinician: Denny Dumont Anticipated Discharge Date/Time: 08/31/24 11:53 Patient Disposition: Inpatient Rehab Facility Activity: as tolerated Diet: heart healthy Discharge Instructions: follow with PCP one week Follow with neurology as scheduled Patient Instructions: Heart Failure (DC) Patient Language: Sami Stand Alone Forms: General Discharge Information Follow-up/Referrals: RitaHerve MD [Primary Care Provider] - 1 Week Norberto Clark MD [Physician] - Call for Appointment Discharge Medications: New cefdinir 300 mg Capsule 300 mg PO Q12HR Qty: 6 0RF multivitamin Tablet 1 tablet PO DAILY Qty: 30 0RF Continued atorvastatin 20 mg tablet 20 mg PO DAILY ropinirole 1 mg tablet 1 mg PO HS alendronate 70 mg tablet 1 tablet PO WEEKLY Patient Comments: SATURDAYS amlodipine 5 mg tablet 5 mg PO DAILY Patient Comments: QAM omeprazole 40 mg capsule,delayed release(DR/EC) 40 mg PO DAILY leflunomide 20 mg tablet 20 mg PO DAILY citalopram 20 mg tablet 20 mg PO DAILY Patient Comments: QAM albuterol sulfate 90 mcg/actuation HFA aerosol inhaler 2 inh INHALATION QID PRN (Reason: Shortness Of Breath Or Wheezing) risperidone 1 mg tablet 1 mg PO HS bupropion HCl 200 mg tablet sustained-release 12 hr 200 mg PO BID metoprolol tartrate 25 mg tablet 25 mg PO DAILY Patient Comments: QAM duloxetine 60 mg capsule,delayed release(DR/EC) 60 mg PO DAILY Patient Comments: QAM Enbrel SureClick 50 mg/mL (1 mL) pen injector 1 ea SUBCUT WEEKLY Patient Comments: SATURDAYS topiramate 100 mg tablet 100 mg PO TID Mucinex DM 30-600 mg Tablet Extended Release 12 Hr 1 tab PO Q12HR Qty: 30 0RF levothyroxine 150 mcg tablet 150 mcg PO QAM prednisone 5 mg tablet 5 mg PO DAILY hydrocodone-acetaminophen 5-325 mg tablet 1 tablet PO Q6H PRN (Reason: pain) Qty: 20 0RF Date of admission: 08/25/24 14:51 Primary Care Provider: Rita*Herve Nava Admitting Provider: Satish Bernard Attending physician on admission: Denny Dumont Condition: Stable Quality VTE Prophylaxis VTE prophylaxis: mechanical ordered and pharmacologic ordered
--- NOTE | 2024-08-30 15:16 | P.PNIM_ITS ---
Progress Note: A&P Assessment and Plan (1) Multiple falls: Code(s): R29.6 - Repeated falls Status: Acute Assessment and Plan: Failure thrive versus infection versus deconditioning versus other PT OT evaluation, recommended rehab ABX for UTI Anemia workup (2) UTI (urinary tract infection): Qualifiers: Hematuria presence: with hematuria Urinary tract infection type: acute cystitis Qualified Code(s): N30.01 - Acute cystitis with hematuria Code(s): N39.0 - Urinary tract infection, site not specified Status: Acute Assessment and Plan: Omnicef Culture positive for E coli and Klebsiella pansensitive (3) Generalized weakness: Code(s): R53.1 - Weakness Status: Acute Assessment and Plan: See plan above (4) Anemia: Code(s): D64.9 - Anemia, unspecified Status: Acute Assessment and Plan: Anemia workup No signs of acute bleeding Transfuse for hemoglobin less than 7, no need to transfuse at this time (5) Rheumatoid arthritis: Code(s): M06.9 - Rheumatoid arthritis, unspecified Status: Acute Assessment and Plan: Okay to restart methotrexate and prednisone (6) Hypertension: Code(s): I10 - Essential (primary) hypertension Status: Acute Assessment and Plan: Continue Norvasc and metoprolol (7) CHF (congestive heart failure): Code(s): I50.9 - Heart failure, unspecified Status: Acute Assessment and Plan: Rafaade 1 diastolic heart failure Patient does not appear to be on diuretics, lower ext US neg for DVT (8) Hyperlipemia: Code(s): E78.5 - Hyperlipidemia, unspecified Status: Acute Assessment and Plan: Home Lipitor (9) Hypothyroidism: Code(s): E03.9 - Hypothyroidism, unspecified Status: Acute Assessment and Plan: Home Synthroid (10) Paresthesia: Code(s): R20.2 - Paresthesia of skin Status: Acute Assessment and Plan: Last known well 3 days before admission Head CT with no acute finding can not get MRI. She has a stimulator will get Ct neck Aspirin neurology on board. Subjective Date/time seen: 08/30/24 15:16 Interval history: per HPi: 69-year-old patient with past medical history of COPD, CHF, hypertension, hypothyroidism and bipolar presents the hospital with weakness, falls and right knee pain. Patient complains of generalized weakness increasing over the last week from baseline she is finding it hard care for herself. Upon asking the patient more questions she states that she knows she had numbness and tingling of her right leg and arm about 3 days ago. She states that she has not got it checked out. Lab work shows anemia at 11.2, chloride 110, BUN of 19, approach BNP of 548, UA shows cloudy positive for nitrates 2+ leukocyte esterase over 100 wbc's and 4+ bacteria. Chest CT shows no acute cardiopulmonary process, right knee x-ray with no acute process. Patient was started on Rocephin and admitted for UTI. 08/25/24 aT was seen and examined at bedside. she is feeling fine. still has R knee pain and leg swelling. will get Us to R/O DVT OT/PT on board 08/26/24 Patient was seen and examined bedside. She is feeling better. Her leg is slightly improving. Waiting for Neurology team recommendation. Lower extremity Doppler pending DC echo as patient had echo about 2 months ago 08/27/24 Patient was seen and examined at bedside. She is feeling better. Her weakness is slightly better. Denies any chest pain, shortness off breath, abdominal pain, nausea vomiting. Right leg swelling is better. Lower extremity Doppler negative for DVT. PT OT recommended rehab Waiting for Neurology recommendation 08/28/24 Patient was seen and examined at bedside. She is feeling better. Denies any chest pain, shortness of breath, abdominal pain, nausea vomiting. Neurology team recommended MRI of spine,which I do not think we can with her back stimulator 08/29/24 Patient was seen and examined at bedside. she is feeling better. her weakness getting better. was not able to get MRI. will wait for neurology recs. 08/30/24 Patient was seen and examined at bedside. she is feeling fine denies any chest pain, SOb, Abd pain,N/V. her leg getting better. discussed with neurology team will get CT head. Review of Systems Review of Systems: 12 systems were reviewed and are negativ e except for as per HPI. Exam Narrative: General: well appearing, appears stated age. HEENT: normocephalic, atraumatic. Mucous membranes moist. EOMI, PERRLA, bilateral sclera anicteric, no conjunctival injection. Neck supple without JVD, lymphadenopathy, or bruit. Respiratory: clear to ascultation bilaterally. No rales/rhonic/wheezes. Cardiovascular: Regular rate and rhythm, normal S1-S2 upon ascultation. No murmurs, rubs, or clicks. PMI is nondisplaced, capillary refill less than 3 second. Abdomen: Soft, round, no pulsatile masses, nondistended and nontender. No rebound, no guarding. No CVA tenderness, no hepatosplenomegaly. Bowel sounds present to all four quadrants. No high pitch or tinkling sounds, resonant to percussion. Extremities: No cyanosis, clubbing, present. Pulses are palpable 2/2. Active ROM to all four extremities. R leg edema Neuro: Alert and orientated x 4. PERRLA. Cranial nerves 2-12 intact without focal deficit. Skin: Warm, dry, and intact, without rash, erythema, or lesion. Psych: pleasant, cooperative, normal speech, normal affect, no hallucinations, no dysarthia Objective Data Vital Signs Vital Signs: Vital Signs - 24 hr 08/29/24 16:00 08/29/24 20:00 08/29/24 20:00 Temperature Pulse Rate 55 L 54 L Respiratory Rate Blood Pressure Pulse Oximetry Oxygen Delivery Room Air 08/29/24 21:39 08/30/24 00:00 08/30/24 04:00 Temperature 97.7 F Pulse Rate 55 L 52 L 51 L Respiratory Rate 18 Blood Pressure 155/64 H Pulse Oximetry 97 Oxygen Delivery 08/30/24 05:32 08/30/24 08:00 08/30/24 08:00 Temperature 97.3 F L Pulse Rate 56 L 52 L Respiratory Rate 16 Blood Pressure 151/67 H Pulse Oximetry 96 Oxygen Delivery Room Air 08/30/24 09:29 08/30/24 12:00 Temperature Pulse Rate 59 L 48 L Respiratory Rate Blood Pressure Pulse Oximetry Oxygen Delivery Intake/Output Intake/Output: Intake & Output 08/27/24 08/28/24 08/29/24 08/30/24 23:59 23:59 23:59 23:59 Intake Total 1550 1320 1540 800 Output Total 1900 1700 1600 150 Balance -350 -380 -60 650 Meds/Results Medications: Active Medications Generic Name Dose Route Start Last Admin Trade Name Freq PRN Reason Stop Dose Admin Acetaminophen 650 mg 08/24/24 15:25 Acetaminophen 325 Mg Tablet PO Q4H PRN Mild Pain (1-3) or Fever Hydrocodone Bitart/Acetaminophen 1 tab 08/24/24 17:17 08/30/24 05:23 Hydrocodone/Acetaminophen (*Crx) 5-325 Mg Tablet PO 1 tab Q4H PRN Administration Moderate Pain (4-6) Albuterol 2 puff 08/24/24 19:36 Albuterol Sulfate (*Sp) Aerosol 1 Puff INHALATION QID PRN Shortness Of Breath Or Wheezing Amlodipine Besylate 10 mg 08/27/24 09:00 08/30/24 09:28 Amlodipine Besylate 10 Mg Tablet PO 10 mg DAILY NIDIA Administration Atorvastatin Calcium 20 mg 08/25/24 09:00 08/30/24 09:30 Atorvastatin 20 Mg Tablet PO 20 mg DAILY NIDIA Administration Bupropion HCl 200 mg 08/24/24 21:00 08/30/24 09:30 Bupropion Hcl Sr (12hr) 100 Mg Tabcr PO 200 mg Q12HR NIDIA Administration Cefdinir 300 mg 08/27/24 21:00 08/30/24 09:29 Cefdinir 300 Mg Capsule PO 300 mg Q12HR NIDIA Administration Citalopram Hydrobromide 20 mg 08/25/24 09:00 08/30/24 09:28 Citalopram Hydrobromide 20 Mg Tablet PO 20 mg DAILY NIDIA Administration Dextrose 12.5 gm 08/24/24 15:25 Dextrose 50% 25 Gm/50 Ml Syringe IV PUSH PRN PRN Hypoglycemia Protocol Docusate Sodium 100 mg 08/25/24 09:00 08/30/24 09:29 Docusate Sodium 100 Mg Capsule PO 100 mg BID NIDIA Administration Duloxetine HCl 60 mg 08/25/24 09:00 08/30/24 09:29 Duloxetine Hcl 60 Mg Capsule.Dr PO 60 mg DAILY NIDIA Administration Enoxaparin Sodium 40 mg 08/25/24 09:00 08/30/24 09:30 Enoxaparin 40 Mg/0.4 Ml Syringe SUB-Q 40 mg DAILY NIDIA Administration Glucagon 1 mg 08/24/24 15:25 Glucagon For Inj 1 Mg Vial IM PRN PRN Hypoglycemia Protocol Glucose 15 gm 08/24/24 15:25 Glucose Oral Gel 15 Gm Of Glucse In 37.5 Gm Tube PO PRN PRN Hypoglycemia Protocol Hydralazine HCl 10 mg 08/27/24 05:33 08/27/24 05:57 Hydralazine Hcl 20 Mg/Ml Vial IV PUSH 10 mg Q4H PRN Administration Blood Pressure - High Dextrose 1,000 mls @ 100 mls/hr 08/24/24 15:25 Dextrose 5% 1,000 Ml IVPB PRN PRN Hypoglycemia Protocol Leflunomide 20 mg 08/25/24 09:00 08/30/24 09:29 Leflunomide 20 Mg Tablet PO 20 mg DAILY NIDIA Administration Levothyroxine Sodium 150 mcg 08/25/24 06:30 08/30/24 05:23 Levothyroxine Sodium 150 Mcg Tablet PO 150 mcg DAILY@0630 NIDIA Administration Metoprolol Tartrate 25 mg 08/25/24 09:00 08/30/24 09:29 Metoprolol Tartrate 25 Mg Tablet PO 25 mg DAILY NIDIA Administration Multivitamins/Minerals 15 ml 08/27/24 09:00 08/30/24 09:30 Multivit W/ Iron, Minerals 15 Ml Liquid (*Bkc) PO 15 ml DAILY NIDIA Administration Ondansetron HCl 4 mg 08/24/24 15:25 Ondansetron Inj 4 Mg/2 Ml Vial IV PUSH Q4H PRN Nausea Pantoprazole Sodium 40 mg 08/24/24 19:45 08/30/24 09:29 Pantoprazole 40 Mg Tablet PO 40 mg BID NIDIA Administration Prednisone 5 mg 08/25/24 09:00 08/30/24 09:28 Prednisone 5 Mg Tablet PO 5 mg DAILY NIDIA Administration Risperidone 1 mg 08/24/24 21:00 08/29/24 21:01 Risperidone 1 Mg Tablet PO 1 mg HS NIDIA Administration Ropinirole HCl 1 mg 08/24/24 21:00 08/29/24 21:01 Ropinirole Hcl 1 Mg Tablet PO 1 mg HS NIDIA Administration Topiramate 100 mg 08/27/24 17:00 08/30/24 13:10 Topiramate 100 Mg Tablet PO 100 mg TID NIDIA Administration Radiology Results: ITS Impressions Head CT 08/24/24 14:00 IMPRESSION: No acute intracranial findings. Chest X-Ray 08/24/24 14:08 IMPRESSION: No definite acute cardiopulmonary pathology. Opacity in the left lower lobe which may be due to elevation of the diaphragm or atelectasis. CT evaluation advised. Knee X-Ray 08/24/24 14:11 IMPRESSION: No acute osseous abnormality right knee. Severe osteoarthritic changes. Chest CT 08/24/24 14:58 IMPRESSION: No acute cardiopulmonary pathology. Elevation of the left hemidiaphragm. No masses noted. Sliding hiatus hernia. Ankle Brachial Index 08/25/24 16:25 IMPRESSION: Bilateral normal STEPHANIE. Venous Doppler Study 08/26/24 15:13 IMPRESSION: Negative bilateral lower extremity venous US. No deep vein thrombosis. Labs Labs: Laboratory Results - last 24 hr 08/30/24 05:24 WBC 3.9 L RBC 3.89 L Hgb 10.5 L Hct 35.8 L MCV 92.0 MCH 27.0 MCHC 29.3 L RDW 16.2 H Plt Count 202 MPV 10.4 Sodium 139 Potassium 3.5 Chloride 107 Carbon Dioxide 25 Anion Gap 7 BUN 22 H Creatinine 0.87 Estim Creat Clear Calc 63 Estimated GFR > 60 Glucose 90 Calcium 8.8 Quality VTE Prophylaxis VTE prophylaxis: mechanical ordered and pharmacologic ordered
[2024-08-30] MEDS: rOPINIRole HCL 1 MG TABLET PO (20:51)
[2024-08-30] MEDS: risperiDONE 1 MG TABLET PO (20:51)
[2024-08-31] VITALS (7 sets, daily range): BP systolic 137–140; BP diastolic 56–72; PULSE 47–55; RESP 16–20; TEMP 36–36.6; O2SAT 97–98
[2024-08-31] MEDS: HYDROcodone/acetaminophen (*CRX) 5-325 MG TABLET 1 TAB PO (05:49)
[2024-08-31] MEDS: LEVOTHYROXINE SODIUM 150 MCG TABLET PO (05:49)
[2024-08-31] MEDS: ATORVASTATIN 20 MG TABLET PO (08:35)
[2024-08-31] MEDS: buPROPion HCL SR (12HR) 100 MG TABCR 200 MG PO (08:35)
[2024-08-31] MEDS: predniSONE 5 MG TABLET PO (08:35)
[2024-08-31] MEDS: PANTOPRAZOLE 40 MG TABLET PO (08:35)
[2024-08-31] MEDS: LEFLUNOMIDE 20 MG TABLET PO (08:35)
[2024-08-31] MEDS: TOPIRAMATE 100 MG TABLET PO ×2 (08:35→12:14)
[2024-08-31] MEDS: CITALOPRAM HYDROBROMIDE 20 MG TABLET PO (08:35)
[2024-08-31] MEDS: amLODIPine BESYLATE 10 MG TABLET PO (08:35)
[2024-08-31] MEDS: CEFDINIR 300 MG CAPSULE PO (08:35)
[2024-08-31] MEDS: DOCUSATE SODIUM 100 MG CAPSULE PO (08:36)
[2024-08-31] MEDS: METOPROLOL TARTRATE 25 MG TABLET PO (08:36)
[2024-08-31] MEDS: MULTIVIT W/ IRON, MINERALS 15 ML LIQUID (*BKC) PO (08:36)
[2024-08-31] MEDS: ENOXAPARIN 40 MG/0.4 ML SYRINGE SUB-Q (08:36)
[2024-08-31] MEDS: DULoxetine HCL 60 MG CAPSULE.DR PO (08:36)
[2024-08-31] MEDS: POTASSIUM CHLORIDE 20 MEQ PACKET (FOR LIQUID) 40 MEQ PO (12:16)
== END 2024-08-31 16:48 | DRG 690 ==
LOC: ANHED 16:49 → ANH3MEDSUR 17:04 → ANH3MED 17:23
PROVIDERS: Emergency Medicine; Nurse Practitioner Gerontology; Admitting Provider General Practice; Emergency Provider Physician Assistant; PCP Family Medicine; Visit Provider Internal Medicine
DX: N30.00 Acute cystitis without hematuria (principal); I50.32 Chronic diastolic (congestive) heart failure; Z68.41 Body mass index [BMI] 40.0-44.9, adult; M47.12 Other spondylosis with myelopathy, cervical region; B96.20 Unspecified Escherichia coli [E. coli] as the cause of diseases classified elsewhere; B96.1 Klebsiella pneumoniae [K. pneumoniae] as the cause of diseases classified elsewhere; D64.9 Anemia, unspecified; E66.01 Morbid (severe) obesity due to excess calories; E03.9 Hypothyroidism, unspecified; E78.5 Hyperlipidemia, unspecified; F31.9 Bipolar disorder, unspecified; F41.9 Anxiety disorder, unspecified; F17.210 Nicotine dependence, cigarettes, uncomplicated; I11.0 Hypertensive heart disease with heart failure; I27.20 Pulmonary hypertension, unspecified; J44.9 Chronic obstructive pulmonary disease, unspecified; M06.9 Rheumatoid arthritis, unspecified; R29.6 Repeated falls; R20.2 Paresthesia of skin; Z96.652 Presence of left artificial knee joint; Z90.49 Acquired absence of other specified parts of digestive tract; Z90.89 Acquired absence of other organs
CPT/HCPCS: 36415; 70450; 71045; 71260; 72125; 73564; 80048; 80053; 81001; 82550; 82607; 82728; 82746; 83540; 83550; 83880; 84443; 84484; 85025; 85027; 85055; 85610; 85730; 87040; 87086; 87186; 93005; 93922; 93970; 96361; 96365; 97110; 97162; 97166; 97530; 97535; 99285; A9270; G0378; J0360; J0696; J1650; J7030; J7040; J7512; Q9967

== ENCOUNTER 2024-12-22 16:12 | Inpatient (IN) | payer MEDICARE, SELFPAY ==
--- OUTSIDE RECORDS SUMMARY | 2009-05-15 05:00 | XMS_ITS | Continuity of Care Document ---
Author Organization [facility] Address [address] [place] [address] Phone Care Team Providers Care Anvilsmith Name Role Phone Harris OD, Jeremias Unavailable Unavailable Procedures Procedure Date Eye Exam & Treatment Eye Exam & Treatment No Script Refraction Office/outpatient Visit, Est Post-op Follow-up Visit Post-op Follow-up Visit Remove Cataract, Insert Lens Eye Exam & Treatment Echo Exam Of Eye-Professional Post-op Follow-up Visit Post-op Follow-up Visit Remove Cataract, Insert Lens PreSurg Dilated Fundus Eval Performed PreSurg Measurements/IOL Calc Performed And Docum Eye Exam Established Pt Visual Functional Status Assessed Echo Exam Of Eye Eye Exam, New Patient Advance Directives Directive Yes / No Effective Date File Name No Information Encounters Encounter Description Practice Location Reason(s) For Visit Diagnoses Date Provider Providers Copied on Encounter [facility], [address], [place], [place], [id number], [place] tel:[phone] [facility][note 3] No Information 0-201 0 Harris OD Jeremias. [address] , [address], [place], [address], [place]. tel:[phone] [facility], [id number] [place] [address] [address], [place], [place], [id number], [place] tel:[phone] [facility] No Information Mar-2 5-200 9 Harris OD Jeremias. [facility] , [address], [place], [place], [facility] [place] [facility] [place]. tel:[phone] Office/outpat ient Visit, Est [facility], [id number] [place] [address] [address], [place], [place], [id number], [place] tel:[phone] [facility] No Information Sep-1 0-200 8 Harris OD Jeremias. [address] [facility] , [address], [place], [facility] [place] [facility] [place]. tel:[phone] [facility], [address] [place] [address] [address], [place], [place], [id number], [place] tel:[phone] [facility] No Information Mar-1 9-200 8 Harris OD Jeremias. [facility] , [address], [place], [facility] [place] [facility] [place]. tel:[phone] Referring Provider: Rjaan Holman, [address] [place], [place] [address]ate Center [address], [place], [place], [facility] [place] [facility] [place]. tel:[phone] [facility], [address] [place] [address] [address], [place], [place], [id number], [place] tel:[phone] [facility] No Information Mar-0 5-200 8 Candelaria Tolentino. [facility] , [address], [place], [facility] [place] [facility] [place]. tel:[phone] [facility], [address] [place] [address] [address], [place], [place], [id number], [place] tel:[phone] [facility] No Information Mar-0 4-200 8 Candelaria Tolentino. [address] [place], [place] [address]ate Center , [address], [place], [facility] [place] [facility] [place]. tel:[phone] [facility], [address], [place], [place], [id number], [place] tel:[phone] [facility] [place] No Information 8 Candelaria Tolentino. [address] [place], [place] [address]ate Center , [address], [place], [facility] [place] [facility] [place]. tel:[phone] Referring Provider: Rajan Holman, [facility] [address], [place], [facility] [place] [facility] [place]. tel:[phone] [facility], [address], [place], [place], [id number], [place] tel:[phone] [facility] [place] No Information 6200 7 Candelaria Tolentino. [address] [place], [place] [address]ate Center , [address], [place], [facility] [place] [facility] [place]. tel:[phone] Referring Provider: Jeremias Holman, [facility] [address], [place], [facility] [place] [facility] [place]. tel:[phone] [facility], [address], [place], [place], [address], [place] tel:[phone] [facility] No Information 8-200 7 Harris OD Jeremias. [address] [place], [place] [address]ate Rei Alexis, [address], [place], [facility] [place] [facility] [place]. tel:[phone] Referring Provider: Rajan Holman, [facility] [address], [place], [facility] [place] [facility] [place]. tel:[phone] [facility], [address], [place], [place], [address], [place] tel:[phone] [facility] No Information 7200 7 Candelaria Tolentino. [facility], [address], [place], [facility] [place] [facility] [place]. tel:[phone] Referring Provider: Jeremias Harris OD [place], [address] [place] [address] [address], [place], [address]. tel:[phone] [facility], [address] [place] [address] [address], [place], [place], [id number], tel:[phone] [facility][note 3] No Information 0 9-200 7 Doisy Edward. [address] [place] [address] , [address], [place], [address], . tel:[phone] Referring Provider: Jeremias Holman, [address] [place] [address] [address], [place], [address]. tel:[phone] [facility], [address] [place] [address] [address], [place], [place], [id number], tel:[phone] [facility][note 3] No Information 3-200 7 Harris OD Jeremias. [address] [place] [address] , [address], [place], [address], [place]. tel:[phone] Family History Family Member Type Diagnosis Age At Onset No Information Payers Payer name Insurance type Covered republican ID Authoriza tirocio(s) [place] [id number] Social History Type Description Quantity Date Captured Comments Sex Female Smoking Status No Information Chief Complaint And Reason For Visit No Information Reason For Referral Reason For Referral No Information History Of Present Illness Encounter Date Complaint History Of Prese nt Illness No Information Functional Status Date Functional Assessmen t No Information Instructions Date Instruction Additional Infor mation No Information Assessments Type Assessment Date No Information Patient Care Teams Name Effective Dates (start - stop) Status Members No Information
--- OUTSIDE RECORDS SUMMARY | 2024-09-19 06:30 | XMS_ITS ---
Author Organization [facility] [employer] Address [address] [place] [address] Care Team Providers Care Basin Operator Name Role Phone Katie SINGH, Herve Primary Care Provider Ernestina Villasenor Unavailable [phone] REASON FOR VISIT follow up Social History Sex Assigned At : Social History Observation Description Sex Assigned At Female Encounters Encounter Location Date Provider Diagnosis [facility] [employer] [facility] [address] [place] [address] 09/19/2024 Ernestina Viera Plan Of Treatment No Information Progress Notes * ROSABENNYJOSE JREHANOB:1955 (69 yo F)Acc No.[id number]:09/19/2024 Patient: TISHA WHITE Provider: SINDHU RICO :1955 A ge:69 Y S ex:Female Date:09/19/2024 [facility] [facility] Pcp:Herve Wilson MD Subjective: * Chief Complaints: * F ollow up * Electronic signature of SINDHU Burgess on 12/22/2024 at 05:28 PM CDT Sign off status: Pending * Provider: SINDHU RICO Date: 0 09/19/2024 Generated for Printi ng/Faxing/eTransmitting on: 1 05:28 PM CDT
--- OUTSIDE RECORDS SUMMARY | 2024-10-25 08:30 | XMS_ITS ---
Author Organization [facility] , Address [address] [place] [address] Care Team Providers Care Jewel Oliving Machine Operator Name Role Phone Herve Wilson Primary Care Provider Herve Dominguez Unavailable [phone] Candi Wing Unavailable [phone] ALLERGIES No Known Allergies RESULTS Component Value Reference Range Notes X ray : Cervical Spine 7 vie ws, AP, Lateral, Swimmers, Obliques, Flexion and Extension Reviewed date:10/25/2024 03:50:59 PM Interpretation: Performing Lab: Notes/Report: X ray : Lumbar Spine 3 views , AP, Lateral, Spot Reviewed date:10/25/2024 03:51:04 PM Interpretation: Performing Lab: Notes/Report: REASON FOR VISIT Lumbar and Cervical MEDICATIONS Medication SIG (Take, Route, Frequency, Duration) Notes Start Date End Date Status Atorvastatin Calcium 20 MG Oral for 7 Days Active Topiramate 100 MG Oral for 7 Days Active rOPINIRole HCl 1 MG Oral for 7 Days Active Leflunomide 20 MG Oral for 30 Days Active Alendronate Sodium 70 MG Oral for 28 Days Active amLODIPine Besylate 5 MG Oral for 7 Days Active Levothyroxine Sodium 150 MCG Oral for 7 Days Active risperiDONE 1 MG Oral for 7 Days Active Metoprolol Tartrate 25 MG Oral for 7 Days Active Citalopram Hydrobromide 20 MG Oral for 7 Days Active Omeprazole Active Mucinex Active buPROPion HCl ER (SR) 200 MG Oral for 7 Days Active predniSONE 5 MG Oral for 30 Days Active DULoxetine HCl 60 MG Oral for 7 Days Active Albuterol Active Narcan Active Multivitamin Active SOCIAL HISTORY Tobacco Use: Social History Observation Description Date Details (start date - stop date) Unknown if ever smoked NA - NA Sex Assigned At : Social History Observation Description Sex Assigned At Unknown Tobacco Use/Smoking Question Answer Notes Are you a unknown if ever smoked Section Notes: She is with one chi ld and lives alone. She is currently in a rehab facility. She denies drug or chemical addiction. She is on disability. PROBLEMS Problem Type ICD Code Onset Dates Problem Status W/U Status Risk SNOMED Code Notes Problem Cervical pain (M54.2) Active confirmed Cervical pain (00277464) Problem Cervical radiculitis (M54.12) Active confirmed Cervical radiculitis (55748868) Problem Lumbar radiculitis (M54.16) Active confirmed Lumbar radiculitis ([id number] 104) VITAL SIGNS BMI 41.45 kg/m2 10/25/2024 Height 63 in 10/25/2024 Weight 234 lbs 10/25/2024 Encounters Encounter Location Date Provider Diagnosis [facility], [address] [place] [address] 10/25/2024 Candi Wing Cervical pain M54.2 ; Cervical radiculitis M54.12 ; Other low back pain M54.59 and Lumbar radiculitis M54.16 ASSESSMENTS Encounter Date Diagnosis Assessment Notes Treatment Notes Treatment Clinical Notes Section Notes 10/25/2024 Cervical pain (ICD-10 - M54.2) &nbsp 1. Cervicalgia 2. Cervical Radiculopathy 3. Possible Cervical Myelopathy 4. Low Back Pain 5. Lumbar Radiculopathy &nbsp <b>PLAN:</b> We will send Ms. Arguello for MRIs of the cervical, thoracic, and lumbar spine to assess for spinal cord compression. After this is reviewed, we will provide her with recommendations for treatment. If no spinal cord compression is observed on her imaging, I would most likely have her see a neurologist for her diffuse weakness. If there is an injection option that would provide her relief of her pain, we would also recommend this. &nbsp Thank you for allowing us to participate in the care of your patient. &nbsp Sincerely, &nbsp Candi Wing, ANP &nbsp The patient's exam findings and imaging studies were reviewed with Herve Cotton M.D. (Dictated but not read. Signed electronically by secretary to board of commissioners to expedite) /sunny 10/25/2024 Cervical radiculitis (ICD-10 - M54.12) &nbsp 1. Cervicalgia 2. Cervical Radiculopathy 3. Possible Cervical Myelopathy 4. Low Back Pain 5. Lumbar Radiculopathy &nbsp <b>PLAN:</b> We will send Ms. Arguello for MRIs of the cervical, thoracic, and lumbar spine to assess for spinal cord compression. After this is reviewed, we will provide her with recommendations for treatment. If no spinal cord compression is observed on her imaging, I would most likely have her see a neurologist for her diffuse weakness. If there is an injection option that would provide her relief of her pain, we would also recommend this. &nbsp Thank you for allowing us to participate in the care of your patient. &nbsp Sincerely, &nbsp Candi Wing, MICHELLE &nbsp The patient's exam findings and imaging studies were reviewed with Herve Cotton M.D. (Dictated but not read. Signed electronically by secretary to board of commissioners to expedite) /d 10/25/2024 Other low back pain (ICD-10 - M54.59) &nbsp 1. Cervicalgia 2. Cervical Radiculopathy 3. Possible Cervical Myelopathy 4. Low Back Pain 5. Lumbar Radiculopathy &nbsp <b>PLAN:</b> We will send Ms. Arguello for MRIs of the cervical, thoracic, and lumbar spine to assess for spinal cord compression. After this is reviewed, we will provide her with recommendations for treatment. If no spinal cord compression is observed on her imaging, I would most likely have her see a neurologist for her diffuse weakness. If there is an injection option that would provide her relief of her pain, we would also recommend this. &nbsp Thank you for allowing us to participate in the care of your patient. &nbsp Sincerely, &nbsp Candi Wing, MICHELLE &nbsp The patient's exam findings and imaging studies were reviewed with Herve Cotton M.D. (Dictated but not read. Signed electronically by secretary to board of commissioners to expedite) /d 10/25/2024 Lumbar radiculitis (ICD-10 - M54.16) &nbsp 1. Cervicalgia 2. Cervical Radiculopathy 3. Possible Cervical Myelopathy 4. Low Back Pain 5. Lumbar Radiculopathy &nbsp <b>PLAN:</b> We will send Ms. Arguello for MRIs of the cervical, thoracic, and lumbar spine to assess for spinal cord compression. After this is reviewed, we will provide her with recommendations for treatment. If no spinal cord compression is observed on her imaging, I would most likely have her see a neurologist for her diffuse weakness. If there is an injection option that would provide her relief of her pain, we would also recommend this. &nbsp Thank you for allowing us to participate in the care of your patient. &nbsp Sincerely, &nbsp Candi Wing, ANP &nbsp The patient's exam findings and imaging studies were reviewed with Herve Cotton M.D. (Dictated but not read. Signed electronically by secretary to board of commissioners to expedite) LV/sunny PLAN OF TREATMENT Next Appt Details Provider Name:Candi Darnellhannah conklin, 01/22/2025 09:00:00 AM, [address], [address], [address], Progress Notes * Examination Category Sub-Category Detail Notes Category Not es X-Ray CERVICAL SPINE X-RAY: Seven views of the cervical spine were obtained today. They demonstrate C2 to 4 with left greater than right facet arthropathy. C3 to 4 shows anterior osteophyte formation. C4 to 7 shows fusion with hardware LUMBAR X-RAY: AP and lateral views of the lumbar spine were obtained today. They demonstrate advanced disc degeneration from L1 down to S1. This is a limited study as the patient is unable to stand CT Scan Imaging Studies CT CERVICAL SPINE: CT scan of the cervical spine from 08/31/2024 demonstrates C2 to 3 with severe left greater than right facet arthropathy. C3 to 4 shows moderate disc degeneration and anterior osteophyte formation. There is advanced bilateral facet arthropathy and bilateral foraminal stenosis. C4 to 7 is fused with hardware. C7 to T1 shows anterolisthesis with bilateral facet arthropathy and moderate disc degeneration &nbsp <B>Physical Examination: </b> The patient is a well developed, well nourished 69-year-old female. She is 5' 3 tall and weighs 234 pounds. She appears her stated age. Mood is calm. Alert and oriented x 3. Gait: Unassessed. Patient is in a wheelchair and notes that she feels too unsteady to get up. ROM: Not assessed. Spine Observation: She has a surgical scar to the anterior neck. Palpation: She has tenderness over the midline cervical region, and diffuse tenderness in the lumbar region. Neuro Exam: Lumbar Exam The patient's strength is difficult to assess due to her intolerance of exam. She has normal strength with ankle dorsiflexion, plantar flexion, and EHL. Patellar and Achilles' reflexes were not assessed. There is no ankle clonus. Sensation is intact to pin prick throughout the lower extremities. Cervical Exam The patient demonstrates 5 over 5 strength in bilateral trapezius, deltoids, biceps, triceps, wrist flexors and extensors, and finger abductors. The Cristin's reflex is negative. Sensation is intact to pin prick throughout the upper extremities. Extremities: Hip/Knee Exam The patient's hips and knees have full, painless range of motion and are stable to manipulation bilaterally. Pulses: The dorsalis pedis pulse is palpable. There is no clubbing, cyanosis, or edema in the lower extremities. The skin is intact. Shoulder/Elbow Exam The patient's shoulders and elbows have full, painless range of motion and are stable to manipulation bilaterally. Pulses: The radial pulse is palpable. There is no clubbing, cyanosis, or edema in the upper extremities. The skin is intact. &nbsp Special Tests: Straight leg raise is negative bilaterally.
--- OUTSIDE RECORDS SUMMARY | 2024-10-26 09:57 | XMS_ITS ---
Author Organization [facility] Address [address] [facility] 100 [place] [address] Care Team Providers Care Chronic Disease Epidemiologist Name Role Phone Herve Wilson Primary Care Provider Herve Dominguez Unavailable [phone] REASON FOR VISIT Schedule MR Encounters Encounter Location Date Provider Diagnosis [facility] [address] [facility] [address] [place] [address] 10/26/2024 Herve Cotton PLAN OF TREATMENT Next Appt Details Provider Name:Candi garcia, 01/22/2025 09:00:00 AM, [address], [address], [place], [address],
--- OUTSIDE RECORDS SUMMARY | 2024-10-26 10:28 | XMS_ITS ---
Author Organization [facility] Address [address] [facility] 100 [place] [address] Care Team Providers Care Sap Basis Name Role Phone Herve Wilson Primary Care Provider Herve Dominguez Unavailable [phone] RESULTS Component Value Reference Range Notes Cervical, Thoracic, Lumbar M RI without contrast Reviewed date:10/27/2024 10:28:17 AM Interpretation:completed Performing Lab: Notes/Report: completed REASON FOR VISIT MRI Encounters Encounter Location Date Provider Diagnosis [facility] [address] [facility] 100 [place] [address] 10/26/2024 Herve Cotton 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
--- OUTSIDE RECORDS SUMMARY | 2024-11-24 09:46 | XMS_ITS ---
Author Organization [facility] Address [address] [facility] 100 [place] [address] Care Team Providers Care Business Planning Manager Name Role Phone Herve Wilson Primary Care Provider Herve Dominguez Unavailable [phone] REASON FOR VISIT to schedule MRI for Alisha Encounters Encounter Location Date Provider Diagnosis [facility] [address] [facility] [address] [place] [address] 11/24/2024 Herve Cotton PLAN OF TREATMENT Next Appt Details Provider Name:Candi conklin, 01/22/2025 09:00:00 AM, [address], [facility] 100, [place], [address],
--- OUTSIDE RECORDS SUMMARY | 2024-12-11 06:30 | XMS_ITS ---
Author Organization [facility] Address [address] [facility] 100 [place] [address] Care Team Providers Care Gas Derrick Operator Name Role Phone Herve Wilson Primary Care Provider Herve Dominguez Unavailable [phone] REASON FOR VISIT Mri Results Encounters Encounter Location Date Provider Diagnosis [facility] [address] [facility] 100 [place] [address] 12/11/2024 Herve Cotton PLAN OF TREATMENT Next Appt Details Provider Name:Candi garcia, 01/22/2025 09:00:00 AM, [address], [facility] 100, [place], [address],
--- OUTSIDE RECORDS SUMMARY | 2024-12-18 06:26 | XMS_ITS ---
Author Organization [facility] Address [address] [facility] 100 [place] [address] Care Team Providers Care Spotter Name Role Phone Herve Wilson Primary Care Provider Herve Dominguez Unavailable [phone] REASON FOR VISIT Mri Encounters Encounter Location Date Provider Diagnosis [facility] [address] [facility] 100 [place] [address] 12/18/2024 Herve Cotton PLAN OF TREATMENT Next Appt Details Provider Name:Candi garcia, 01/22/2025 09:00:00 AM, [address], [facility] 100, [place], [address],
--- OUTSIDE RECORDS SUMMARY | 2024-12-18 07:12 | XMS_ITS ---
Author Organization [facility], Address [address] [facility] 100 [place] [address] Care Team Providers Care Technology Lead Name Role Phone Herve Wilson Primary Care Provider Herve Dominguez Unavailable [phone] REASON FOR VISIT SNN MRI C/T/L 12/06/24 Encounters Encounter Location Date Provider Diagnosis [facility], [address] [facility] 100 [place] [address] 12/18/2024 Herve Cotton PLAN OF TREATMENT Next Appt Details Provider Name:Candi garcia, 01/22/2025 09:00:00 AM, [address], [address], [place], [address],
--- OUTSIDE RECORDS SUMMARY | 2024-12-19 04:51 | XMS_ITS ---
Author Organization [facility] Address [address] [facility] 100 [place] [address] Care Team Providers Care Rabble Furnace Tender Name Role Phone Herve Wilson Primary Care Provider Herve Dominguez Unavailable [phone] REASON FOR VISIT Returning a call Encounters Encounter Location Date Provider Diagnosis [facility] [address] [facility] [address] [place] [address] 12/19/2024 Herve Cotton PLAN OF TREATMENT Next Appt Details Provider Name:Candi garcia, 01/22/2025 09:00:00 AM, [address], [address], [place], [address],
[2024-12-22] VITALS (14 sets, daily range): BP systolic 107–148; BP diastolic 50–72; PULSE 68–79; RESP 18–36; TEMP 37.7–38.2; O2SAT 93–100; BMI 39.4
--- NOTE | ~2024-12-22 | XR_ITS ---
EXAMINATION: XR chest 1V portable COMPARISON: No comparisons available. HISTORY: SOB HX COPD FINDINGS: Moderate pulmonary venous congestion. Small basilar infiltrates. No pneumothorax. Moderate cardiomegaly. Moderate hiatal hernia. Bony thorax no acute abnormality. Miscellaneous: None Impression: CHF. Superimposed probable pneumonia Reviewed, dictated and finalized at location P. Impression: CHF. Superimposed probable pneumonia
--- OUTSIDE RECORDS SUMMARY | 2024-12-22 08:39 | XMS_ITS ---
Author Organization [facility] Address [address] [facility] 100 [place] [address] Care Team Providers Care Horses Or Mules Teamster Name Role Phone Herve Wilson Primary Care Provider Herve Dominguez Unavailable [phone] REASON FOR VISIT Procedure Encounters Encounter Location Date Provider Diagnosis [facility] [address] [facility] [address] [place] [address] 12/22/2024 Herve Cotton PLAN OF TREATMENT Next Appt Details Provider Name:Candi garcia, 01/22/2025 09:00:00 AM, [address], [facility] 100, [place], [address],
--- NOTE | 2024-12-22 16:15 | ECG_ITS ---
Test Date: 2024-12-22 16:23:02 Measurements Intervals [place] Rate: 80 P: 230 NH: 357 QRS: -47 QRSD: 118 T: 52 QT: 392 QTc: 452 Interpretive Statements SINUS RHYTHM WITH ATRIAL PREMATURE COMPLEX BORDERLINE AV CONDUCTION DELAY LEFT ANTERIOR FASCICULAR BLOCK BASELINE ARTIFACT- I, II, III, AVR, AVL, AVF, V1-V2 ABNORMAL ECG Compared to ECG 08/24/2024 12:33:09 HEART RATE HAS INCREASED Left anterior fascicular block now present POSSIBLE ISCHEMIA NO LONGER PRESENT Electronically Signed On 12-22-2024 19:35:17 CDT by Irving Carcamo D.O.
--- NOTE | 2024-12-22 16:28 | ED.GENADULT ---
HPI - General Adult General Chief complaint: Altered Mental Status Stated complaint: AMS History of Present Illness HPI narrative: 69-year-old female presents to the emergency department for evaluation for increased worsening shortness breath and some confusion. Patient does have history of COPD and does have some expiratory wheeze on exam. Related Data Home Medications ?Medication ?Instructions ?Recorded ?Confirmed ?Last Taken ?Type albuterol sulfate 90 mcg/actuation 2 inh inhalation QID PRN Shortness 08/25/21 08/24/24 Unknown History aerosol inhaler Of Breath Or Wheezing alendronate 70 mg tablet 1 tablet PO WEEKLY 08/25/21 08/24/24 04/29/24 History amlodipine 5 mg tablet 5 mg PO DAILY 08/25/21 08/24/24 05/15/24 History atorvastatin 20 mg tablet 20 mg PO DAILY 08/25/21 08/24/24 04/30/24 History bupropion HCl 200 mg tablet,12 hr 200 mg PO BID 08/25/21 08/24/24 05/15/24 History sustained-release citalopram 20 mg tablet 20 mg PO DAILY 08/25/21 08/24/24 05/15/24 History duloxetine 60 mg capsule,delayed 60 mg PO DAILY 08/25/21 08/24/24 05/15/24 History release etanercept 50 mg/mL (1 mL) 1 ea subcut WEEKLY 08/25/21 08/24/24 04/29/24 History subcutaneous pen injector (Bulmaro Crandall) leflunomide 20 mg tablet 20 mg PO DAILY 08/25/21 08/24/24 04/30/24 History metoprolol tartrate 25 mg tablet 25 mg PO DAILY 08/25/21 08/24/24 05/15/24 History omeprazole 40 mg capsule,delayed 40 mg PO DAILY 08/25/21 08/24/24 04/30/24 History release risperidone 1 mg tablet 1 mg PO HS 08/25/21 08/24/24 04/30/24 History ropinirole 1 mg tablet 1 mg PO HS 08/25/21 08/24/24 Unknown History topiramate 100 mg tablet 100 mg PO TID 08/25/21 08/24/24 04/30/24 History levothyroxine 150 mcg tablet 150 mcg PO QAM 04/21/24 08/24/24 05/15/24 History prednisone 5 mg tablet 5 mg PO DAILY 04/21/24 08/24/24 05/15/24 History Allergies Allergy/AdvReac Type Severity Reaction Status Date / Time montelukast Allergy Other Verified 12/22/24 16:33 Review of Systems Review of Systems: ROS unobtainable: Yes unobtainable due to medical condition [facility] Past Medical History Medical History Pulmonary hypertension Diastolic dysfunction Chronic obstructive pulmonary disease Rheumatoid arthritis Carpal tunnel syndrome Anxiety and depression Bipolar 1 disorder Hyperlipemia Hypertension Hypothyroidism Surgical History Surgical History Status post insertion of sacral nerve stimulator History of hysterectomy History of thyroidectomy History of total left knee replacement History of tonsillectomy Family History Family History Mother Hypertension COPD (chronic obstructive pulmonary disease) Lung cancer Father Hypertension COPD (chronic obstructive pulmonary disease) Lung cancer Grandparent Cerebrovascular accident maternal grandmother Son Diabetes mellitus Social History Social History Social History: Surrogate medical decision maker: Adam Arguello, doc. Code status: Full code. Smoking packs per day: 1.25 Smoking cigarettes per day: 25.0 Years smoked: 45 Smoking pack-years: 56.25 Smoking status: Current every day smoker Tobacco type: cigarettes Additional smoking assessment comments: CURRENTLY SMOKING 1/2 PACK/DAY, TRYING TO QUIT Alcohol intake: former Alcohol use details: FORMER ALCOHOLIC QUIT 2009 Substance use: former Substance use type: marijuana Do You Feel Safe in your Home?: Yes Lack of Transportation: No Lack of Food: Never True Current Housing: I Have Housing Concerned About Future Housing: No Difficulty Paying Gas/Electric Bills: YES Difficulty Paying for Meds: YES Currently Unemployed: No Education: High School Diploma/GED Difficulty w/ Childcare or Family Care: No Living arrangements: alone Additional living arrangements comments: Lives alone. She has 1 son. 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 Spiritual care concerns: No Agree to blood products: Yes Exam Narrative: APPEARANCE: Ill-appearing HEAD: normocephalic, atraumatic. EYES: PERRLA/EOMI, conjunctivae clear. NOSE: Normal no drainage EARS:TMS clear with good light reflex. THROAT: Pharynx clear, no exudate. NECK: Supple. No adenopathy, no masses. RESPIRATORY: Decreased lung sounds, expiratory wheeze CARDIOVASCULAR: Regular rate and rhythm without murmurs rubs or gallops. ABDOMINAL: Soft, nontender, nondistended, normal bowel sounds MUSCULOSKELETAL: Moves all extremities. Strength/ROM intact, No edema, No calf tenderness. NEURO: Alert. Cranial nerves II through XII intact. Grossly intact SKIN: Warm, dry. Normal Color Course Vital Signs Vital signs: Vital Signs Temperature 100.2 F H 12/22/24 16:08 Pulse Rate 77 12/22/24 16:08 Respiratory Rate 36 H 12/22/24 16:08 Blood Pressure 148/72 H 12/22/24 16:08 Pulse Oximetry 93 12/22/24 16:08 Oxygen Delivery Nasal Cannula 12/22/24 16:08 Oxygen Flow Rate 2 12/22/24 16:08 Temperature 100.2 F H 12/22/24 16:08 Pulse Rate 68 12/22/24 18:24 Respiratory Rate 24 H 12/22/24 18:24 Blood Pressure 111/51 L 12/22/24 18:24 Pulse Oximetry 100 12/22/24 18:24 Oxygen Delivery BiPAP 12/22/24 16:56 Oxygen Flow Rate 2 12/22/24 16:08 Medical Decision Making [facility] Narrative Medical decision making narrative: 69-year-old female presents emergency department for evaluation for increased oxygen requirement. Due to patient's increased work of breathing and decreased mental status patient was placed on BiPAP and titrated down to 35% FiO2 with 14/7 for pressures. Patient's initial ABG was taken approximately 15 minutes after being on BiPAP and showed no significant abnormalities. Patient mental status did improve on BiPAP. Patient stated no she was not having any pain and patient was able to give bilateral thumbs up. Patient is currently febrile with a temperature of 100.2?. Patient has no leukocytosis hemoglobin of 8.1 which is lower than her baseline. This may be secondary to fluid overload. Patient's INR is 1.1. Patient has no acute abnormalities on her CMP patient's proBNP is not significantly elevated patient's CRP is elevated at 5.3, patient was negative for influenza RSV and for COVID. Chest x-ray was concern for CHS and pneumonia. Patient was started on IV antibiotics, IV Rocephin and azithromycin with blood cultures were ordered. Patient does have a component of fluid overload clinically with a +3 pitting edema bilaterally and evidence of pulmonary edema on the chest x-ray. Patient was not treated with the 30 mL/kg of IV fluids due to concern of worsening fluid overload. Patient was treated with 20 mg of IV Lasix. Differential Diagnosis Differential Diagnosis: COVID, RSV, influenza, pneumonia, COPD, CHF, hypercapnia Vital Signs Vital Signs: Vital Signs Temperature 100.2 F H 12/22/24 16:08 Pulse Rate 77 12/22/24 16:08 Respiratory Rate 36 H 12/22/24 16:08 Blood Pressure 148/72 H 12/22/24 16:08 Pulse Oximetry 93 12/22/24 16:08 Oxygen Delivery Nasal Cannula 12/22/24 16:08 Oxygen Flow Rate 2 12/22/24 16:08 Temperature 100.2 F H 12/22/24 16:08 Pulse Rate 68 12/22/24 18:24 Respiratory Rate 24 H 12/22/24 18:24 Blood Pressure 111/51 L 12/22/24 18:24 Pulse Oximetry 100 12/22/24 18:24 Oxygen Delivery BiPAP 12/22/24 16:56 Oxygen Flow Rate 2 12/22/24 16:08 Lab Data Lab results reviewed: Yes I reviewed the patient's lab results. 12/22/24 16:27 12/22/24 16:27 Labs: Lab Results 12/22/24 12/22/24 Range/Units 16:27 16:45 WBC 6.9 (4.5-10.0) K/mm3 RBC 3.53 L (4.2-5.4) M/mm3 Hgb 8.1 L (12.0-15.0) g/dL Hct 28.7 L (37.0-47.0) % MCV 81.3 (80-100) fl MCH 22.9 L (26-34) pg MCHC 28.2 L (32-36) g/dl RDW 17.8 H (11.5-14.5) % Plt Count 298 (150-375) k/mm3 MPV 10.2 (7.4-10.4) fl Immature Gran % (Auto) 0.7 H (0-0.5) % Neut % (Auto) 75.4 H (45.5-73.1) % Lymph % (Auto) 12.0 L (18.3-44.2) % [place] % (Auto) 10.9 H (2.6-8.5) % Eos % (Auto) 0.7 (0-4.4) % Baso % (Auto) 0.3 (0.2-1.2) % Lymph # (Auto) 0.82 L (0.9-3.2) K/mm3 [place] # (Auto) 0.8 H (0.1-0.6) K/mm3 Eos # (Auto) 0.1 (0-0.3) K/mm3 Baso # (Auto) 0.0 (0.0-0.1) K/mm3 Abs Immat Gran (auto) 0.05 H (0.00-0.031) K/mm3 Absolute Neuts (auto) 5.2 (1.3-6.7) K/mm3 Absolute Nucleated RBC 0.000 (0.0-0.012) K/mm3 Band Neutrophils % 0 (0-6) % Nucleated RBC % 0.0 (0.0-0.2) % Platelet Estimate Adequate (Adequate) Hypochromasia 1+ Anisocytosis 2+ Schistocytes None seen PT 13.9 (11.1-14.7) Seconds INR 1.1 APTT 28.1 (22.3-36.8) Seconds Methemoglobin 0.3 (0-1.5) %THb Expiratory Pressure Pending Inspiratory Pressure Pending Sodium 136 L (137-145) mmol/L Potassium 4.2 (3.4-5.0) mmol/L Chloride 102 (98-107) mmol/L Carbon Dioxide 25 (22-30) mmol/L Anion Gap 9 (4-12) mmol/L BUN 25 H (7-17) mg/dL Creatinine 0.98 (0.7-1.0) mg/dL Estim Creat Clear Calc 61 ml/min Estimated GFR 56 L (59 - ) Glucose 134 H (65-110) mg/dL Calcium 9.0 (8.4-10.2) mg/dL Total Bilirubin 0.4 (0.2-1.3) mg/dL AST 22 (14-36) U/L ALT 18 (6-35) U/L Alkaline Phosphatase 74 (38-126) U/L C-Reactive Protein 5.3 H (<1.0) mg/dL NT-Pro-B Natriuret Pep 174 H (19.9-100) pg/mL Total Protein 7.1 (6.3-8.2) g/dL Albumin 3.6 (3.5-5.1) g/dL Influenza A (RT-PCR) Negative (Negative) Influenza B (RT-PCR) Negative (Negative) RSV (RT-PCR) Negative (Negative) SARS-CoV-2 RNA (RT-PCR) Negative (Negative) ABG Data ABG results: 12/22/24 16:45 Puncture Site Right radial ABG pH 7.431 ABG pCO2 42.1 ABG pO2 88.8 ABG PO2/FiO2 Ratio 2.54 ABG HCO3 27.4 H ABG O2 Saturation 97.0 ABG O2 Content 12.0 L ABG Base Excess 2.8 A-a Gradient 111.8 Oxyhemoglobin 93.5 Carboxyhemoglobin 3.4 H Reduced Hemoglobin 2.8 Total Hemoglobin 9.0 L O2 Delivery Device Non-invasive vent O2 Liters/Min Not Reportable FiO2 35 Imaging Data Radiologist's impression: Impressions Chest X-Ray 12/22/24 16:55 Impression: CHF. Superimposed probable pneumonia Discharge Plan Discharge Clinical Impression: COPD (chronic obstructive pulmonary disease), CHF (congestive heart failure), Anemia, AMS (altered mental status) Patient Disposition: Still a Patient Condition: Serious
[2024-12-22 16:36] LABS: Hematocrit 28.7 % (37.0-47.0); Hemoglobin 8.1 g/dL (12.0-15.0); Immature Granulocyte Percent A 0.7 % (0-0.5); Lymphocytes Absolute Auto 0.82 K/mm3 (0.9-3.2); Mean Corpuscular HGB Conc 28.2 g/dl (32-36); Mean Corpuscular Hemoglobin 22.9 pg (26-34); Mean Corpuscular Volume 81.3 fl (80-100); Nucleated Red Blood Cells Absolute Auto 0.000 K/mm3 (0.0-0.012); Nucleated Red Blood Cells Perc 0.0 % (0.0-0.2); Platelet Count Result 298 k/mm3 (150-375); Red Blood Count 3.53 M/mm3 (4.2-5.4); White Blood Count 6.9 K/mm3 (4.5-10.0)
[2024-12-22 16:49] LABS: Alveolar/Arterial O2 Gradient 111.8 mmHg; Carboxyhemoglobin 3.4 % THb (0-2.0); Fractional Inspired Oxygen 35 %; HCO3 ABG 27.4 mEq/l (22.0-26.0); Methemoglobin ABG 0.3 %THb (0-1.5); Oxygen Content ABG 12.0 %vol (16.0-22.0); Oxygen Saturation ABG 97.0 % (95.0-100.0); PCO2 ABG 42.1 mmHg (35.0-45.0); PO2 ABG 88.8 mmHg (80.0-100.0); PO2 FiO2 Ratio Arterial Blood 2.54 %; Reduced Hemoglobin 2.8 %THb (0-5.0)
[2024-12-22 16:51] LABS: Modified Allen's Test Pass; Site Drawn RIGHT RADIAL
[2024-12-22] MEDS: ALBUTEROL SULFATE NEB 2.5 MG/3 ML INH 5 MG INHALATION (16:54)
[2024-12-22 16:56] LABS: INR 1.1; Prothrombin Time 13.9 Seconds (11.1-14.7)
[2024-12-22 16:57] LABS: Partial Thromboplastin Time 28.1 Seconds (22.3-36.8)
[2024-12-22 17:06] LABS: Alanine Aminotransferase 18 U/L (6-35); Albumin Level 3.6 g/dL (3.5-5.1); Alkaline Phosphatase 74 U/L (38-126); Anion Gap 9 mmol/L (4-12); Aspartate Amino Transferase 22 U/L (14-36); Bilirubin,Total 0.4 mg/dL (0.2-1.3); Blood Urea Nitrogen 25 mg/dL (7-17); CRP 5.3 mg/dL (<1.0); Calcium 9.0 mg/dL (8.4-10.2); Carbon Dioxide 25 mmol/L (22-30); Chloride 102 mmol/L (98-107); Estimated CRCL calculation 61 ml/min; Estimated Glomerular Filt Rate 56; Glucose 134 mg/dL (65-110); Potassium 4.2 mmol/L (3.4-5.0); Sodium 136 mmol/L (137-145); Total Protein 7.1 g/dL (6.3-8.2)
[2024-12-22 17:08] LABS: NT Pro B Type Natriuretic Pept 174 pg/mL (19.9-100)
[2024-12-22 17:13] LABS: Influenza A QL RT-PCR Negative (Negative); Influenza B QL RT-PCR Negative (Negative); RSV RNA, RT-PCR Negative (Negative); SARS-CoV-2 RNA PCR Negative (Negative)
[2024-12-22 17:24] LABS: Anisocytosis 2+; Band Neutrophils Percent 0 % (0-6); Hypochromasia 1+; Schistocytes None Seen
--- OUTSIDE RECORDS SUMMARY | 2024-12-22 17:26 | XMS_ITS | Clinical Summary ---
Author Organization [facility] Address [address] [place] [address] Care Team Providers Care Waterproof Bag Cutting Machine Operator Name Role Phone Cy Mckinnon David DO Unavailable [phone] Herve Wilson MD Primary Care Provider [phone] Allergies Active Allergy Reactions Criticality Noted Date [...] PER WEEK 12 tablet 11/15/19 24 Active etanercept (EnbreL SureClick) 50 mg/mL (1 mL) pen injector INJECT 1 PEN SUBCUTANEOUSLY WEEKLY 4 mL 3 09/30/19 25 Active predniSONE (DELTASONE) 5 mg tablet TAKE 1 TABLET BY MOUTH EVERY DAY 30 tablet 11/29/19 25 Active predniSONE (DELTASONE) 5 mg tablet TAKE 1 TABLET BY MOUTH EVERY DAY 30 tablet 10/25/19 25 2024 Discontinued Active Problems Problem Noted Date Diagnosed [...] are complete. Avoid live-vaccines unless reviewed with media aid first. Osteopenia 10/08/2023 Assessment & Plan (10/08/2023 11:08 AM CDT): On fosamax since 2020. Due for repeat DEXA. Will do at [facility]. You need 1200mg calcium daily between [...] (10/30/2021): Added automatically from request for surgery [id number] Mechanical complication of e lectrode lead of implanted electronic neurostimulator of peripheral nerve 10/30/2021 Overview (10/30/2021): Added automatically from request for surgery [id number] Stress incontinence 07/04/2020 Overview (07/04/2020): Added automatically from request for surgery [id number] Primary nocturnal enuresis 07/04/2020 Overview (07/04/2020): Added automatically from request for surgery [id number] Dysphagia 03/27/2020 Overview (03/27/2020): Added automatically from request for surgery [id number] Special screening for malignant neoplasms, colon 03/27/2020 Overview (03/27/2020): Added automatically from request for surgery [id number] Anemia 02/22/2019 Overview (03/06/2024): Problems with anemia [...] 06/14/2012 Overview (06/12/2016): RLS (restless legs syndrome) Gastroesophageal reflux disease 06/14/2012 Overview (06/12/2016): GERD (gastroesophageal reflux disease) Bipolar I disorder 06/14/2012 Overview (06/12/2016): Bipolar 1 disorder Adiposity 06/14/2012 Overview (06/12/2016): Obesity Rheumatoid arthritis 02/22/2012 Overview (10/30/2024): >>OVERVIEW FOR RHEUMATOID ARTHRITIS (HCC) WRITTEN ON 06/12/2016 2:04 PM BY INTERFACE, PROBLEM LIST CONVERSION Rheumatoid arthritis Assessment & Plan (10/30/2024 1:07 PM CDT): >>ASSESSMENT AND PLAN FOR RHEUMATOID ARTHRITIS (HCC) WRITTEN ON 10/08/2023 11:08 AM BY MARY WHITE NP Stable on simponi, continue same. Follow up in 4 months and prn. Encounters Date Type Department Care Team Description 11/13/2024 Telephone [facility] Rheumatology at [address] [address] Mary White NP lab error 11/13/2024 Telephone [facility] Rheumatology at [address] [address] Suzanne Zaman MD Prior Auth (Enbrel ) 11/01/2024 Results Follow-Up [facility] Rheumatology at [address] [address] Mary White, MG TSH, Creatine kinase (CK), total, Magnesium, Additional followed-up results: 7 10/31/2024 Telephone [facility] Rheumatology at [address] [address] Mary White NP medication/results 10/30/2024 1:38 PM CDT - 10/30/2024 11:59 PM CDT Hospital Encounter [address] [phone] Discharge Disposition: Discharge to home or self care 10/30/2024 1:00 PM CDT Office Visit [facility] Rheumatology at [address] [place] [address] Mary White, MG Rheumatoid arthritis involving multiple sites with positive rheumatoid factor (HCC) (Primary Dx); Long-term use of high-risk medication; Immunosuppression due to drug therapy; Screening-pulmonary TB; Muscle weakness (generalized) from Last 3 Months Immunizations Immunization Administration [...] Gastric ulcer 07/22/2013 Gastric ulcer Chronic obstructive pulmonary disease 07/22/2013 COPD (chronic obstructive pulmonary disease) Restless legs syndrome 06/14/2012 RLS (rest less legs syndrome) Diverticulitis of intestine 07/22/2013 Dive rticulitis Bipolar I disorder ([facility]) 06/14/2012 Bipolar 1 disorder Rheumatoid arthritis (HCC) Hypothyroidism Hyperlipidemia HTN (hypertension) GERD (gastroesophageal reflux disease) Esophageal stenosis Osteoporosis Neuropathy Heart valve regurgitation CHF (congestive heart failure) (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 on file Not on file Not on file Obstetrics History Last Filed Vital Signs Vital Sign Reading Time Taken Comments Blood Pressure 126/64 10/30/2024 1:10 PM CDT Pulse 55 10/30/2024 1:10 PM CDT Temperature 37 C (98.6 F) 10/08/2023 9:39 AM CDT Respiratory Rate 20 10/08/2023 9:39 AM CDT Oxygen Saturation 94% 10/30/2024 1:10 PM CDT Inhaled Oxygen Concentration - - Weight 111.6 kg (246 lb) 10/30/2024 1:10 PM CDT Height 160 cm (5' 3) 10/30/2024 1:10 PM CDT Body Mass Index 43.58 10/30/2024 1:10 PM CDT Plan of Treatment Health Maintenance Due Date Last Done Comments Depression Screening 1955 Hepatitis C Screening 1955 DTaP/Tdap/Td Vaccine (1 - Tdap) 08/18/1966 Hepatitis B Screening 08/18/1973 Lung Cancer Screening 08/18/2005 Breast Cancer Screening-Mammogram 04/24/2020 04/24/2019, 12/09/2016, 11/27/2015, Additional history exists Well Visit 65+ 08/18/2020 Pneumococcal vaccine 65+ (3 of 3 - PCV20 or PCV21) 03/13/2022 01/16/2022, 03/18/2012 Osteoporosis Screening-Bone Density Scan 04/05/2022 04/05/2020 Fall Risk Assessment 12/02/2022 12/02/2021 Influenza Vaccine (#1) 2024 2, 01/17/2021, 01/05/2020, Additional history exists Colon Cancer Screening-Colonoscopy 04/12/2030 04/12/2020 Zoster Vaccine Completed 03/24/2020, 01/05/2020 Colon Cancer Screening-CT Colonography Discontinued 04/12/2020 Colon Cancer Screening-DNA Stool Discontinued 04/12/19 Colon Cancer Screening-FIT Discontinued 04/12/2020 Colon Cancer Screening-Sigmoidoscopy Discontinued 04/12/2020 Medical Devices Implanted Type Area Foreclosure Paralegal Device Identifier Shelf Expiration Date Model / Serial / Lot Medtronic Neuro 3058 Interstim Ii 2inx1.7in 4 Electrode Feller Buncher Operator Sacral Nerve - [id number] - [id number] Implanted:Qty: 1 on 07/23/2020 by Husam Morales MD at [facility] Neurostimulator Right: Buttocks Med[employer]onic Inc 07/03/2021 [id number] / [id number] / Description:Sub Q upper righ t buttocks [employer] [id number] Interstim 28cm Quadripolar Mri Labor Conciliator Neurostimulator - Sn/A - [id number] Implanted:Qty: 1 on 07/23/2020 by Husam Morales MD at [facility] Neurostimulator Right: Lumbar-Sac ral Spine [employer]onic Inc 10/22/2021 [id number] / N/A / [id number] Description:Right Sacral-3 F oramin Medtronic Inc Generator Neurostimulator Bowel Bladder Recharge Free Interstim X [id number] - [id number] - [id number] Implanted:Qty: 1 on 12/02/2021 by Husam Morales MD at [facility] N/A: Buttocks Med[employer]onic Inc 04/21/2023 [id number] / [id number] / Medtronic Inc Interstim 28cm Quadripolar Mri Labor Conciliator Neurostimulator [id number] - [id number] Implanted:Qty: 1 on 12/02/2021 by Husam Morales MD at [facility] N/A: Sacrum [employer] Inc 02/12/2023 [id number] / / [id number] Procedures Procedure Name Priority Date/Time Associated Diagnosis Comments EGFR Routine 10/30/2024 1:51 PM CDT Long-term use of high-risk medication Immunosuppression due to drug therapy DIFFERENTIAL AUTO Routine 10/30/2024 1:5 1 PM CDT Rheumatoid arthritis involving multiple sites with positive rheumatoid factor (HCC) Long-term use of high-risk medication Immunosuppression due to drug therapy CBC WITH AUTO DIFFERENTIAL Routine 10/30/2024 1:51 PM CDT Rheumatoid arthritis involving multiple sites with positive rheumatoid factor (HCC) Long-term use of high-risk medication Immunosuppression due to drug therapy COMPREHENSIVE METABOLIC PANEL Routine 10/30/2024 1:51 PM CDT Long-term use of high-risk medication Immunosuppression due to drug therapy ERYTHROCYTE SEDIMENTATION RATE Routine 10/30/2024 1:51 PM CDT Rheumatoid arthritis involving multiple sites with positive rheumatoid factor (HCC) TB TEST, QUANTIFERON GOLD Routine 10/30/2024 1:51 PM CDT Long-term use of high-risk medication Immunosuppression due to drug therapy Screening-pulmonar y TB MYOMARKER PANEL 3 Routine 10/30/2024 1:5 1 PM CDT Muscle weakness (generalized) MAGNESIUM Routine 10/30/2024 1:51 PM CDT Muscle weakness (generalized) CREATINE KINASE (CK), TOTAL Routine 10/30/2024 1:51 PM CDT Muscle weakness (generalized) TSH Routine 10/30/2024 1:51 PM CDT Muscle weakness (generalized) COLONOSCOPY 04/12/2020 8:43 AM GLUING MACHINE OPERATOR DEXA AXIAL SKELETON BONE DENSITY 1 OR MORE SITES Schedule Routine, Read Routine (OP Routine) 04/05/2020 10:47 AM GLUING MACHINE OPERATOR Encounter for screening for osteoporosis SCREENING MAMMOGRAM BILATERAL W CRISTOBAL Schedule Routine, Read Routine (OP Routine) 04/24/2019 11:01 AM GLUING MACHINE OPERATOR Encounter for screening mammogram for malignant neoplasm of breast from Last 3 Months or Most Recently Relevant to Health Maintenance Results * Myomarker panel 3 (10/30/2024 1:51 PM CDT) Anti-Yovana-1 ab <20 <20 Units [facility] ref Lab Anti PL-7 ab Negative Negative [facility] Comment: This test was developed and its performance characteristics determined by [facility]. It has not been cleared or approved by the Food and Drug Administration. Anti PL-12 ab Negative Negative [facility] Comment: This test was developed and its performance characteristics determined by [facility]. It has not been cleared or approved by the Food and Drug Administration. Anti EJ ab Negative Negative [facility] Comment: This test was developed and its performance characteristics determined by [facility]. It has not been cleared or approved by the Food and Drug Administration. Anti OJ ab Negative Negative [facility] Comment: This test was developed and its performance characteristics determined by [facility]. It has not been cleared or approved by the Food and Drug Administration. Anti SRP ab Negative Negative [facility] Comment: This test was developed and its performance characteristics determined by [facility]. It has not been cleared or approved by the Food and Drug Administration. Anti Mi-2 ab Negative Negative [facility] Comment: This test was developed and its performance characteristics determined by [facility]. It has not been cleared or approved by the Food and Drug Administration. Polymyositis PM-SCL ab <20 <20 Units [facility] Comment: This test was developed and its performance characteristics determined by [facility]. It has not been cleared or approved by the Food and Drug Administration. Fibrillarin U3 ab Negative Negative [facility] Comment: This test was developed and its performance characteristics determined by [facility]. It has not been cleared or approved by the Food and Drug Administration. Interpretation for Anti-Yovana-1, [id number], Anti-MDA-5, Anti-NXP-2, Anti-PM/Scl-100, Anti-SS-A 52 kD, Anti-U1 CLERK RATING: Negative: <20 Weak Positive: 20 - 39 Moderate Positive: 40 - 80 Strong Positive: >80 . Test Performed by: [facility] Endocrinology [facility] [place] [address] Anti U2 SN CLERK RATING ab Negative Negative [facility] Comment: This test was developed and its performance characteristics determined by [facility]. It has not been cleared or approved by the Food and Drug Administration. Anti U1RNP ab <20 <20 Units [facility] Anti KU ab Negative Negative [facility] Comment: This test was developed and its performance characteristics determined by [facility]. It has not been cleared or approved by the Food and Drug Administration. P155/140 ab <20 <20 Units [facility] Comment: This test was developed and its performance characteristics determined by [facility]. It has not been cleared or approved by the Food and Drug Administration. MDA-5 P140 ab <20 <20 Units [facility] Comment: This test was developed and its performance characteristics determined by [facility]. It has not been cleared or approved by the Food and Drug Administration. NXP-2 P140 ab <20 <20 Units [facility] Comment: This test was developed and its performance characteristics determined by [facility]. It has not been cleared or approved by the Food and Drug Administration. SSA52 KD ab IgG <20 <20 Units [facility] Comment: This test was developed and its performance characteristics determined by [facility]. It has not been cleared or approved by the Food and Drug Administration. Blood 10/30/2024 1:51 PM CDT 10/30/2024 10:26 PM CDT us Mary A. Burnitt STEAM SHOVEL OILER LAB BLOOD ORDERABLES Final Re sult Performing Organization Address [facility] Co de Phone Number [facility] [address] [place] [address] [facility] * eGFR (10/30/2024 1:51 PM CDT) eGFR >90 >=60 mL/min/1. 73 m2 Comment: Interpretive Data Reference Interval Normal >/= 90 mL/min/1.73m2 Mildly decreased* 60 - 89 mL/min/1.73m2 Mildly to moderately decreased 45 - 59 mL/min/1.73m2 Moderately to severely decreased 30 - 44 mL/min/1.73m2 Severely decreased 15 - 29 mL/min/1.73m2 Kidney Failure < 15 mL/min/1.73m2 *Relative to young adult level Estimated glomerular filtration rate is determined by the 2020 CKD-EPI equation recommended by the National Kidney Foundation (A Unifying Approach to GFR Estimation: Recommendations of the NKF-ASK Task Force on Reassessing the Inclusion of Race in Diagnosing Kidney Disease, JASN 2020). The CKD-EPI equation should not be used for patients with unstable renal function and has not been validated in children and those over 70. Current interpretive data was last reviewed 2021. Blood 10/30/2024 1:51 PM CDT 10/30/2024 8:32 PM CDT Mary White STEAM SHOVEL OILER LAB BLOOD ORDERABLES Final Re sult Performing Organization Address [facility] Co de Phone Number [facility] [address] [place] [address] * Differential, auto (10/30/2024 1:51 PM CDT) Neutrophil abs 4.32 1.50 - 6.50 K/cumm Imm gran abs 0.03 0.00 - 0.10 K/cumm [facility] Lymphocyte abs 1.03 0.80 - 3.30 K/cumm [facility] Monocyte abs 0.63 0.20 - 0.80 K/cumm [facility] Eosinophil abs 0.14 0.00 - 0.50 K/cumm [facility] Basophil abs 0.03 0.00 - 0.10 K/cumm [facility] Neutrophil pct 69.8 % [facility] Comment: Interpretive Data Percent cell count reference ranges are not reported, since discordance with absolute values may lead to misinterpretation of CBC data. Current Interpretive Data was last revised on 2017. Imm gran pct 0.5 % [facility] Comment: Interpretive Data Percent cell count reference ranges are not reported, since discordance with absolute values may lead to misinterpretation of CBC data. Current Interpretive Data was last revised on 2017. Lymphocyte pct 16.7 % [facility] Comment: Interpretive Data Percent cell count reference ranges are not reported, since discordance with absolute values may lead to misinterpretation of CBC data. Current Interpretive Data was last revised on 2017. Monocyte pct 10.2 % [facility] Comment: Interpretive Data Percent cell count reference ranges are not reported, since discordance with absolute values may lead to misinterpretation of CBC data. Current Interpretive Data was last revised on 2017. Eosinophil pct 2.3 % [facility] Comment: Interpretive Data Percent cell count reference ranges are not reported, since discordance with absolute values may lead to misinterpretation of CBC data. Current Interpretive Data was last revised on 2017. Basophil pct 0.5 % [facility] Comment: Interpretive Data Percent cell count reference ranges are not reported, since discordance with absolute values may lead to misinterpretation of CBC data. Current Interpretive Data was last revised on 2017. Blood 10/30/2024 1:51 PM CDT 10/30/2024 8:32 PM CDT us Mary White STEAM SHOVEL OILER LAB BLOOD ORDERABLES Final Re sult [facility] [address] Department [place] [address] * TB test, quantiferon gold (10/30/2024 1:51 PM CDT) Pathologist [facility] Quantiferon TB Gold [facility] ref Lab Comment: QuantiFERON-Tb Gold Plus, B was cancelled on 11/01/2024 at 14:45; Specimen was improperly collected. Plasma appears to have been poured off and added to Garcia and T2 tubes. TB-Nil [facility] Comment: QuantiFERON-Tb Gold Plus, B was cancelled on 11/01/2024 at 14:45; Specimen was improperly collected. Plasma appears to have been poured off and added to Garcia and T2 tubes. TB2-Nil [facility] Comment: QuantiFERON-Tb Gold Plus, B was cancelled on 11/01/2024 at 14:45; Specimen was improperly collected. Plasma appears to have been poured off and added to Garcia and T2 tubes. Mitogen-Nil [facility] Comment: QuantiFERON-Tb Gold Plus, B was cancelled on 11/01/2024 at 14:45; Specimen was improperly collected. Plasma appears to have been poured off and added to Garcia and T2 tubes. NIL [facility] Comment: QuantiFERON-Tb Gold Plus, B was cancelled on 11/01/2024 at 14:45; Specimen was improperly collected. Plasma appears to have been poured off and added to Garcia and T2 tubes. Test Performed by: [place] [address] Headrig Sawyer: Zeinab Newman Ph.D.; CLIA# [id number] Blood 10/30/2024 1:51 PM CDT 10/30/2024 10:42 PM CDT us Mary White STEAM SHOVEL OILER LAB BLOOD ORDERABLES Final Re sult [facility] [address] Department [place] [address] [facility] Lab * (ABNORMAL) CBC with auto differential (10/30/2024 1:51 PM CDT) [facility] WBC 6.18 3.80 - 9.90 K/cumm Hgb 9.2(L) 11.9 - 15.5 g/dL [facility] Hct 32.1(L) 35.6 - 45.5 % [facility] Plt 259 150 - 400 K/cumm [facility] MPV 11.2 9.1 - 12.3 fL [facility] RBC 3.75(L) 3.90 - 5.20 M/cumm [facility] MCV 85.6 81.3 - 96.4 fL [facility] MCH 24.5(L) 27.1 - 33.3 pg [facility] MCHC 28.7(L) 32.3 - 35.7 g/dL [facility] RDW CV 16.5(H) 11.1 - 14.9 % [facility] RDW SD 51.4(H) 35.7 - 48.1 fL [facility] NRBC abs 0.00 0.00 - 0.01 K/cumm [facility] Blood 10/30/2024 1:51 PM CDT 10/30/2024 8:32 PM CDT us Mary White STEAM SHOVEL OILER LAB BLOOD ORDERABLES Final Re sult Performing Organization Address City/[facility]/ZIP Co de Phone Number [facility] [address] [place] [place] [employer] [place] [address] * (ABNORMAL) Erythrocyte sedimentation rate (10/30/2024 1:51 PM CDT) Erythrocyte sedimentation rate 45(H) 1 - 30 mm/hr Blood 10/30/2024 1:51 PM CDT 10/30/2024 8:32 PM CDT Mary White STEAM SHOVEL OILER LAB BLOOD ORDERABLES Final Re sult [facility] [address] [employer] [place], [place] [id number] * TSH (10/30/2024 1:51 PM CDT) Thyroid Stimulating Hormone 0.44 0.30 - 4.20 mcIUnit/mL Blood 10/30/2024 1:51 PM CDT 10/30/2024 8:32 PM CDT Mary White STEAM SHOVEL OILER LAB BLOOD ORDERABLES Final Re sult Performing Organization Address [facility] de Phone Number [facility] [address] [facility] [employer] [place], [place] [id number] * Magnesium (10/30/2024 1:51 PM CDT) [facility] Magnesium 2.0 1.4 - 2.5 mg/dL Blood 10/30/2024 1:51 PM CDT 10/30/2024 8:32 PM CDT Mary White STEAM SHOVEL OILER LAB BLOOD ORDERABLES Final Re sult Performing Organization Address [facility] Phone Number [facility] [address] Department [employer] [place], [place] [id number] * Creatine kinase (CK), total (10/30/2024 1:51 PM CDT) [facility] CK 58 30 - 200 Units/L Blood 10/30/2024 1:51 PM CDT 10/30/2024 8:32 PM CDT Mary White STEAM SHOVEL OILER LAB BLOOD ORDERABLES Final Re sult Performing Organization Address [facility] de Phone Number [facility] [address] [facility] [employer] [place], [place] [id number] * (ABNORMAL) Comprehensive metabolic panel (10/30/2024 1:51 PM CDT) [facility] Sodium 145 135 - 145 mmol/L Potassium, pl 4.0 3.3 - 4.9 mmol/L [facility] Chloride 111(H) 97 - 110 mmol/L [facility] CO2 21(L) 22 - 32 mmol/L [facility] Anion gap 13 2 - 15 mmol/L [facility] BUN 20 6 - 25 mg/dL [facility] Creatinine 0.67 0.60 - 1.10 mg/dL [facility] Glucose 90 70 - 199 mg/dL [facility] Comment: Interpretive Data Fasting glucose >/= 126 mg/dl is diagnostic for diabetes. Fasting is defined as no caloric intake for at least 8 hours. Fasting glucose between 100 mg/dl to 125 mg/dl is diagnostic of prediabetes. In a patient with classic symptoms of hyperglycemia or hyperglycemic crisis, a random glucose >/= 200 mg/dl is diagnostic for diabetes. In the absence of unequivocal hyperglycemia, results should be confirmed by repeat testing. The classification and Diagnosis of Diabetes Diabetes Care 2021; 46: S19-S40. Current interpretive data was last revised 2022. Calcium 9.0 8.5 - 10.3 mg/dL [facility] Bilirubin, total <0.2 0.1 - 1.2 mg/dL [facility] Protein, pl 6.3(L) 6.5 - 8.5 g/dL [facility] [facility] Albumin 3.5 3.5 - 5.0 g/dL [facility] Alk phos 56 40 - 130 Units/L [facility] ALT 17 7 - 45 Units/L [facility] AST 15 10 - 45 Units/L [facility] Blood 10/30/2024 1:51 PM CDT 10/30/2024 8:32 PM CDT us Mary White STEAM SHOVEL OILER LAB BLOOD ORDERABLES Final Re sult [facility] [address] Department [place] [address] * COLONOSCOPY (04/12/2020 8:43 AM GLUING MACHINE OPERATOR) Anatomical Region Laterality Modality Other Narrative Procedure Note Jeniffer Almaraz MD - 04/12/2020 8:43 AM CST [facility] Patient Name: Alisha Arguello Procedure [...] 3 weeks. Procedure Code(s): --- Professional --- 64648, Colonoscopy, flexible; diagnostic, including collection of specimen(s) by brushing or washing,when performed (separate procedure) Diagnosis Code(s): --- Professional --- Z12.11, Encounter for screening for malignantneoplasm of colon K57.30, Diverticulosis of large intestine without perforation or abscess without bleeding CPT copyright 2019 [employer]. All rights reserved. The codes documented in this report are preliminary and upon medical records coder reviewmay be revised to meet current compliance requirements. Naida Peres Sung Jeniffer Almaraz M.D. 04/12/2020 9:44:11 AM This report has been electronically signed by the physician. Number of Addenda: 0 Note Initiated On: 04/12/2020 8:43 AM Jeniffer Almaraz MD ENDOSCOPY PROCEDURES Final Result * Dexa Axial Skeleton Bone Density 1 or 2 Site (04/05/2020 10:47 AM GLUING MACHINE OPERATOR) Anatomical Region Laterality Modality Body N/A Other 04/05/2020 10:5 8 AM GLUING MACHINE OPERATOR Impressions 04/05/2020 10:59 AM GLUING MACHINE OPERATOR According to the World Health Organization [...] signed by: Marika Huerta 04/05/2020 10:59 AM GLUING MACHINE OPERATOR COMPLETION DATE: 04/05/2020 11:00 AM ORDERING HEALTHCARE PROVIDER: TERRELL HDZ STUDY DESCRIPTION: DEXA AXIAL SKELETON BONE DENSITY 1 OR MORE SITES CLINICAL INDICATIONS: Z13.820. COMPARISON: None TECHNIQUE: Dual x-ray absorptiometry (DEXA) was performed using Holotakokat system. GENERAL GUIDELINES: According to WHO guidelines, [...] Dual x-ray absorptiometry (DEXA) was performed using Nubli system. GENERAL GUIDELINES: According to WHO guidelines, [...] therapy. Electronically signed by: Jeni Sherwood D.O. us Terrell Hdz MD IMG DXA PROCEDURES Final Resu lt * Screening Mammogram Bilateral W Cristobal (04/24/2019 11:01 AM GLUING MACHINE OPERATOR) Anatomical Region Laterality Modality Breast Bilateral Mammography Narrative 04/25/2019 2:48 PM GLUING MACHINE OPERATOR Mammogram Technique: Bilateral Digital Breast Tomosynthesis, Bilateral C-view 2D Screening mammogram. Views obtained: bilateral craniocaudal and bilateral mediolateral oblique. Computer Aided Detection was performed. Mammogram Findings: The present examination has been compared to prior imaging studies performed at [facility] on 11/21/2014, 11/27/2015 and [...] compared to prior imaging studies performed at [facility] on 11/21/2014, 11/27/2015 and 12/09/2016. There are scattered areas of fibroglandular density. There is no suspicious abnormality in either breast. Impression: Annual screening mammography is recommended. OVERALL FINAL ASSESSMENT: BI-RADS CATEGORY 1: Negative. us Self Screening Mammogram IMG MAMMO PROCEDURES Fi nal Result from Last 3 Months or Most Recently Relevant to Health Maintenance Insurance [facility] AETNA MEDICARE GOLD AETNA MEDICARE GOLD MEDICARE Advance Directives For more information, please contact: [phone] * Full Code (Latest Code Status on File) Date Activated Date Inactivated Comments 04/12/2020 8:25 AM 04/12/2020 4:12 PM Care Teams Waterproof Bag Cutting Machine Operator Relationship Specialty Start Date End Date Herve Wilson MD [address] [place] [address] PCP - General Family Medicine 10/08/23 Cy Mckinnon DO [address] [place] [address] Medical Oncologist/Transmission Technician Hematology and Oncology 10/05/17
--- OUTSIDE RECORDS SUMMARY | 2024-12-22 17:26 | XMS_ITS | Encounter Summary ---
Author Organization [facility] Address [address] [place] [address] Phone Care Team Providers Care Television Camera Operator Name Role Phone Sarmad Bowden Primary Care Provider [phone] Cy Mckinnon DO Unavailable [phone] Mirna Rider MD Primary Care Provider [phone] Anitra Rothman MD Primary Care Provider [phone] Justen Milton MD Primary Care Provider [phone] Herve Wilson MD Primary Care Provider [phone] Encounter Details Date Type Department Care Team (Late st Contact Info) Description 06/18/2017 Orders Only [facility] ProviderRusty MD [address] [place] [address] Social History Tobacco Use Types Packs/Day Years Used Date Smoking Tobacco: Former Smokeless Tobacco: Never Comments:Smoking History Pac ks/day: 1 Packs Alcohol Use Standard Drinks/Week Comments No 0 (1 standard drink = 0.6 oz pur e alcohol) Comments Unknown Sex and Gender Information Value Date Recorded Sex Assigned at Not on file Legal Sex Female 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 Gender Identity Female 01/10/2021 2:50 PM CDT [...] on filedocumented in this encounter Care Teams Television Camera Operator Relationship Specialty Start Date End Date Faviola Bowden MD [address] [address] PCP - General 06/05/16 12/15/17 Mirna Rider MD [address] [place] [address] [place] [address] PCP - General 12/16/17 04/23/19 Anitra Rothman MD [address] [place] [address] [place] [address] PCP - General 04/24/19 03/24/20 Justen Milton MD [address] [place] [address] PCP - General 03/25/20 10/07/23 Herve Wilson MD [address] [place] [address] PCP - General Family Medicine 10/08/23 Cy Mckinnon DO [address] [place] [address] Medical Oncologist/Glass Processing Worker Hematology and Oncology 10/05/17 documented as of this encounter
--- OUTSIDE RECORDS SUMMARY | 2024-12-22 17:27 | XMS_ITS | Clinical Summary ---
Author Organization [email or web address] Address [address] [facility] [place] [address] Care Team Providers Care Video Editor Name Role Phone Unavailable Primary Care Provider Unavailabl e Source Comments [email or web address],non-owned Affiliates and Associated Physician Practices is amultiple site organization consisting of ambulatory clinics and hospital sitesin [place], [place] and [place]. This disclosure is being madepursuant to the Care Everywhere program and may not contain all information available regarding this patient. 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
--- OUTSIDE RECORDS SUMMARY | 2024-12-22 17:27 | XMS_ITS | Data Portability ---
Author Organization [place] [facility], Main Office Address [address] [place] [address] Assessment Encounter Date Assessment Date Assessment LastModified [...] Nicotine cessation counseling provided for 4 minutes. Brenton for quitting nicotine include getting ready, getting [...] in Quit For Life program Registering at [email or web address] Making a call to 8-671-GESD-NOW ( ). A strong, clear, personalized message [...] failure or relapse. Patient can enroll in [facility]'s smoking cessation class through Geraldine Escobedo RN at . Enrollment is free and classes are held every wednesday of the month from 1:30 pm to 2:30 pm at the conference room next to the cafeteria on the ground floor. The [place] [employer] recommends annual screening for lung cancer with low-dose computed tomography (LDCT) for people aged 50 to 80 years old who smoke or formerly smoked and have a 20-year or greater pack-year history. Screening is no longer discontinued even when a person has not smoked for 15 years. LDCT scan ordered. Cough/Dyspnea workup will be done as follows: Respiratory allergen panel for [facility] Serum IgE Serum total IgG, IgG1, IgG2, IgG3, IgG4 Qiitc-2-wqptwwpudr n phenotype and level TB stimulated gamma [...] CPAP for JANET. Nicotine cessation counseling provided. Brenton for quitting nicotine include getting ready, getting [...] in Quit For Life program Registering at [email or web address] Making a call to 2-941-ISTQ-NOW ( ). A strong, clear, personalized message [...] failure or relapse. Patient can enroll in [facility]'s smoking cessation class through Geraldine Escobedo RN at . Enrollment is free and classes are held every wednesday of the month from 1:30 pm to 2:30 pm at the conference room next to the cafeteria on the ground floor. The [place] [employer] recommends annual screening for lung [...] (aat) phenotype, serum 2023 024 [email or web address] 25 [facility] (Lab), [address] [place], [address], 4 10:54:35 BNP (B-type natriuretic peptide), serum or plasma 2023 024 CHRIS [facility] (Lab), [address] [place], [address], 4 14:15:37 ige, total, serum 2023 024 [email or web address] (Lab), [address] [place], [address], 4 10:54:35 tb (M tuberculosi s), ifn-gamma en, blood 2023 024 [email or web address] 25 [facility] (Lab), [address] [place], [address], 4 10:54:35 eosinophil count, manual, blood (OBS) 2023 024 [email or web address] 25 [facility] (Lab), [address] [place], [address], 4 10:54:35 igg subclasses 1+2+3+4, serum 2023 024 [email or web address] 25 [facility] (Lab), [address] [place], [address], 4 10:54:35 respiratory allergen panel - [facility] a 2023 024 [email or web address] 25 [facility] (Lab), [address] [place], [address], 4 10:54:35 respiratory allergen panel - [facility] b 2023 024 [email or web address] 25 [facility] (Lab), [address] [place], [address], 4 10:54:35 Referral None recorded. Procedures None recorded. Surgeries None recorded. Imaging LDCT, chest, for lung cancer screening 2023 025 [facility] (One Call Scheduling), [address] [place], [address], 5 15:35:54 LDCT, chest, for lung cancer screening - Nicotine smoke: 1 ppd 1970-presen t (quit 20 years in between) = 33 pack years; no auth required 2023 024 [facility] (One Call Scheduling), [address] [place], [address], 4 11:40:22 Medication Orders albuterol sulfate HFA 90 mcg/actuati on aerosol inhaler [address]23 [facility] ([place] [place]Pharmacy #[id number], [address], [place], [address], 4 12:55:46 Trelegy Ellipta 100 mcg-62.5 mcg-25 mcg powder for inhalation [address] [facility] ([place] [place]Pharmacy #[id number], [address], [place], [address], 4 12:55:46 Patient TargetsNo targets recorded. Patient Instructions Encounter Date Encounter Id Patient Instructions Last Modified By Organization Details Last Modified Time 04/08/2023 [id number] methacholine challenge* CHRIS Not available 06/11/2023 12:37:59 06/10/2023 [id number] complete PFT w/ post bronchodilator spirometry* Not available 05/17/2024 15:34:56 Reason for Referral [...] yanelis pierce No observ ation record ed. [email or web address] [facility] [address] [place], [address], 04/16/2023 14:57:37 06/11/19 24 06/10/2023 metha choli ne chall enge* No observ ation record ed. [facility] (One Call Scheduling) [address] [place], [address], 06/11/2023 12:37:59 Result Notes None recorded. Problems Name Problem SNOMED Code Status Onset Date Resolution Date Notes Provider Name and Address Organization Details Recorded Time Bipolar disorder 79462980 Active Not Available [facility] 3 07:30:17 Gastroeso phageal reflux disease 729897140 Active Not Available [facility] 3 07:30:17 Restless legs syndrome 04705661 Active Not Available [facility] 3 07:30:17 Depressiv e disorder 09171525 Active Not Available [facility] 3 07:30:17 Arthritis 9545633 Active Not Available [facility] 3 07:30:18 Hypoxemia 730964024 Active nocturnal Not Available [facility] 3 07:30:18 Hypothyro idism 97479845 Active Not Available [facility] 3 07:30:18 Obesity 409506047 Active Not Available [facility] 3 07:30:18 Obstructi ve sleep apnea syndrome 43773850 Active Not Available [facility] 3 07:30:18 Body mass index 40+ - severely obese 866498325 Active 2016 Not Available [facility] 3 07:30:18 Smoker 60031871 Active 2023 Eduardo Wilson MD [address] [facility], [address], [place], [address] , [facility] [employer] [facility] 4 11:05:46 Moderate persisten t asthma 872082781 Active 2023 Eduardo Wilson MD [address] [facility], [address], [place], [address] , [facility] [employer] 4 12:44:55 Notes:Medical History: Bipol ar depression [...] cervical discectomy fusion (ACDF) 1996 Esophageal dilatations 8669-0594 Left knee replacement 2005 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 Medical Equipment None Reported. Allergies Allergen ID Allergen Name Allergen Category Reaction Reaction Severity Criticality Documentation Date Start Date Code Code System Note Provider Name and Address Organization Details Recorded Time 27251 Singulair medicatio n Not available Not available Not available 05/06/2022 48238 9 RxNorm Not Available [facility] 3 07:36:29 Medications Name Sig Start Date [...] /min 15 /min Eduardo Wilson MD [address] [employer] [address], [address], [facility] 04/08/2023 10:47:04 Date Recorded Body height Body mass index (BMI) Body weight Body temperature Oxygen saturation Oxygen saturation in Arterial blood by Pulse oximetry Systolic And Diastolic Provider Name and Address Organization Details Last Updated DateTime 157.48 cm 49.1 kg/m2 489149. 47 g 98.1 [degF] 95 % 95 % 144/70 mm[Hg] Joan Anguiano MA [facility] 10:25:44 Date Recorded Oxygen saturation Oxygen saturation in Arterial blood by Pulse oximetry Heart rate Respiratory rate Provider Name and Address Organization Details Last Updated DateTime 06/10/2023 95 % 95 % 65 /min 14 /min Eduardo Wilson MD [address], [place], [address], [facility] 4 12:52:41 Date Recorded Body height Body mass index (BMI) Body weight Body temperature Heart rate Systolic And Diastolic Provider Name and Address Organization Details Last Updated DateTime 157.48 cm 48.5 kg/m2 732635. 7 g 97.7 [degF] 65 /min 128/66 mm[Hg] Joan Anguiano MA [facility] 4 12:38:12 Social History Question Answer Notes LastModified by Organizat ion Details LastModified Time Tobacco Smoking Status Current Every Day Smoker Joan Anguiano MA null, [employer] [facility] 04/08/2023 10:32:14 What Is Your Level Of [...] available 04/08/2023 What is your occupation? disabled [id number] Information not available 05/06/2022 What is your exercise level? None Information not available 04/08/2023 Mental Status Question Answer Note LastModified by Organization D etails LastModified Time Do you feel stressed (tense, restless, nervous, or anxious, or unable to sleep at night)? [id number] Information not available 04/08/2023 Family History Relationship Description Onset Age of this Age Resolved Age Notes LastModified by Organization Details LastModified Time Mother Chronic obstructive pulmonary disease [email or web address] Not available 2023 10:29:04 Mother Heart disease [email or web address] Not available 2023 10:29:22 Father Malignant neoplasm of colon [email or web address] Not available 2023 10:29:44 Father Malignant neoplasm of pharynx [email or web address] Not available 2023 10:30:03 [...] virus, quadrivalent, preservative 7 completed Not Available [facility] 05/06/2022 07:36:24 influenza, unspecified formulation 7 completed Not Available [facility] 05/06/2022 07:36:24 influenza, unspecified formulation 6 completed Not Available [facility] 05/06/2022 07:36:25 Past Encounters Encounter ID Performer Location Encounter Start Date Encounter Closed Date Diagnosis/Indication Diagnosis SNOMED-CT Code Diagnosis ICD10 Code Diagnosis IMO Codes Diagnosis Note [id number] Eduardo Wilson MD [facility] [place] [address] 0 04/08/2023 09:55:11 04/08/2023 15:37:34 Dyspnea on exertion 92836803 R06.09 R05.3 T78.40XA D89.9 Smoker 15767243 F17.218 F17.219 Z87.151 [id number] Eduardo Wilson MD [facility] [address] 06/10/2023 12:27:59 06/11/2023 08:56:05 Smoker 88907174 F17.218 F17.219 Z87.891 Moderate p ersistent asthma 094199071 J45.40 Health Concerns Section Related Observation LastModified by Organization Detai ls LastModified Time None Recorded Concern Status LastModified by Organization Details LastModified Time None Recorded Advance Directives Directive None Recorded Payers Insurance Date Sequence Insurance Name Policy Number Policy Church Covered Member ID Church Member ID Guarantor Name 06/16/[address] [facility] (MEDICARE REPLACEMENT HMO) [id number] Alisha Arguello [id number] Alisha Floyd Jos 06/19/2024 1 [facility] (MEDICARE REPLACEMENT/A DVANTAGE - PPO) [id number] Alisha Arguello [id number] Alisha Arguello Notes Date Note Type Note Provider Name and Address Organization Details Recorded Time 04/08/2023 text/html Primary care/Referring provider: Herve Wilson MD Patient is here to go over shortness of breath evaluation/management. Initial development of shortness of breath: 2016 Duration of shortness of breath: 8 years Condition of shortness of breath: stable Timing of shortness of breath: none Frequency: every hour Limits activities: yes Aggravating factors: walking, going up stairs Alleviating factors: rest Modified [employer] [facility] [place] ([facility]) Dyspnea Scale - Grade 2 Grade [...] years in between) = 33 pack years [place]: no Dye: no Dust mites: yes Mold: no Damp basement: no Wood burning stove: no Animal dander: 3 dogs Cockroaches: no Pollen: yes Arsenic: no Asbestos: no Beryllium: no Cadmium: no Chromium: no [place] smoke: no Diesel fumes: no Nickel: no [...] moderate chance of dozing. Eduardo Wilson MD [address] [place] [address], [address], [place] [facility] [employer] 04/08/2023 11:14:40 06/10/2023 text/html Primary care/Referring provider: Herve Wilson MD Patient is here [...] up stairsAlleviating factors: rest Modified [employer] [place] ([employer]) Dyspnea Scale - Grade 2Grade 0 [...] slight chance of dozing. Eduardo Wilson MD [address] [place] [address] [place] [place] [address], [place], [address], [facility] 06/10/2023 13:04:23 OBGyn Episode No OBEpisode recorded.
--- OUTSIDE RECORDS SUMMARY | 2024-12-22 17:27 | XMS_ITS | Clinical Summary ---
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
--- OUTSIDE RECORDS SUMMARY | 2024-12-22 17:27 | XMS_ITS | Encounter Summary ---
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
--- OUTSIDE RECORDS SUMMARY | 2024-12-22 17:28 | XMS_ITS | Encounter Summary ---
Author Organization [facility] Healthcare Address [address] [place] [address] Care Team Providers Care Multimedia Services Coordinator Name Role Phone Pratibha Cy Hernandez DO Unavailable [phone] Herve Wilson MD Primary Care Provider [phone] Encounter Details Date Type Department Care Team (Latest Contact Info) Description 11/01/2024 Results Follow-Up [facility] Medical Group Rheumatology at [facility] [address] [facility] [address] [place] [address] Mary White, TUBE BENDER [address] [facility] [address] [place] [address] TSH, Creatine kinase (CK), total, Magnesium, Additional followed-up results: 7 Social History Tobacco Use Types Packs/Day Years Used Date Smoking Tobacco: Every Day Cigarettes 0.8 30 Started: 02/1977; Last attempted to quit: 02/2007 Smokeless Tobacco: Never Comments:Smoking History Pac ks/day: [...] on file Legal Sex Female 9:08 AM [place] Gender Identity Female 01/10/2021 2:50 PM CDT Sexual Orientation Not on file 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
--- OUTSIDE RECORDS SUMMARY | 2024-12-22 17:28 | XMS_ITS | Clinical Summary ---
Author Organization [facility] Address [address] [place] [address] Care Team Providers Care Operator Helper Name Role Phone Unavailable Primary Care Provider [...] (1 of 2) 08/18/2005 Pneumococcal Vaccine: 50+ Years (2 of 2 - PCV) 03/18/2013 03/18/2012 Annual Medicare Wellness Visit 08/18/2020 Dexa Scan (General) 08/18/2020 PHQ-2 (Physician Habematolel) 03/08/2024 COVID-19 Vaccine (1 - 2023-2 5 season) 2024 Influenza Adult (#1) 2024 01/17/2017, 12/05/2013, 01/11/2013 RSV Immunization or 60+ [...]
--- OUTSIDE RECORDS SUMMARY | 2024-12-22 17:28 | XMS_ITS | Patient Health Record ---
Author Organization [facility] , Address [address] [place] [address] Care Team Providers Care Learning Solutions Specialist Name Role Phone Herve Wilson Primary Care Provider Herve Dominguez Unavailable [phone] Candi Wing Unavailable [phone] ALLERGIES No Known Allergies RESULTS Component Value Reference Range Notes X ray : Cervical Spine 7 vie ws, AP, Lateral, Swimmers, Obliques, Flexion and Extension Reviewed date:10/25/2024 03:50:59 PM Interpretation: Performing Lab: Notes/Report: X ray : Lumbar Spine 3 views , AP, Lateral, Spot Reviewed date:10/25/2024 03:51:04 PM Interpretation: Performing Lab: Notes/Report: Cervical, Thoracic, Lumbar M RI without contrast Reviewed date:10/27/2024 10:28:17 AM Interpretation:completed Performing Lab: Notes/Report: completed REASON FOR REFERRAL No Information MEDICATIONS Medication SIG (Take, Route, Frequency, Duration) Notes Start Date End Date Status risperiDONE 1 MG Oral for 7 Days Active Multivitamin Active Atorvastatin Calcium 20 MG Oral for 7 Days Active Omeprazole Active Topiramate 100 MG Oral for 7 Days Active Mucinex Active rOPINIRole HCl 1 MG Oral for 7 Days Active buPROPion HCl ER (SR) 200 MG Oral for 7 Days Active Leflunomide 20 MG Oral for 30 Days Active predniSONE 5 MG Oral for 30 Days Active Alendronate Sodium 70 MG Oral for 28 Days Active DULoxetine HCl 60 MG Oral for 7 Days Active Metoprolol Tartrate 25 MG Oral for 7 Days Active Citalopram Hydrobromide 20 MG Oral for 7 Days Active amLODIPine Besylate 5 MG Oral for 7 Days Active Albuterol Active Levothyroxine Sodium 150 MCG Oral for 7 Days Active Narcan Active SOCIAL HISTORY Tobacco Use: Social History [...] W/U Status Risk SNOMED Code Notes Problem Low back pain at multiple sites (M54.50) Active confirmed Low back pain (finding) (540733220) Problem Neck ache (M54.2) Active confirmed Neck ache (88660861) Problem Myelopathy (G95.9) Active confirmed Myelopathy (98676996) Problem Cervical pain (M54.2) Active confirmed Cervical pain (61361443) Problem Cervical radiculitis (M54.12) Active confirmed Cervical radiculitis (57841378) Problem Lumbar radiculitis (M54.16) Active confirmed Lumbar radiculitis ([id number] 104) VITAL SIGNS Height 63 in 10/25/2024 Weight 234 lbs 10/25/2024 BMI 41.45 kg/m2 10/25/2024 Encounters Encounter Location Date Provider Diagnosis [facility], [address] [address] 10/25/2024 Candi Wing Cervical pain M54.2 ; Cervical radiculitis M54.12 ; Other low back pain M54.59 and Lumbar radiculitis M54.16 [facility], [address] [address] 10/26/2024 Herve Cotton [facility] [address] [address] 10/26/2024 Herve Cotton Myelopathy G95.9 [facility] [address] [address] 11/24/2024 Herve Cotton [facility] [address] [address] 12/11/2024 Herve Cotton [facility] [address] [address] 12/18/2024 Herve Cotton [facility] [address] [facility] [address] [place] [address] 12/18/2024 Herve Cotton [facility] [address] [facility] [address] [place] [address] 12/19/2024 Herve Cotton [facility] [address] [facility] [address] [facility] [address] [place] [address] 12/22/2024 Herve Cotton ASSESSMENTS Encounter Date Diagnosis Assessment Notes Treatment [...] (Dictated but not read. Signed electronically by special education secretary to expedite) LV/mkd 10/26/2024 Myelopathy (ICD-10 - G95.9) 10/25/2024 Cervical radiculitis (ICD-10 - M54.12) &nbsp [...] (Dictated but not read. Signed electronically by special education secretary to expedite) /[facility] 10/25/2024 Other low back pain (ICD-10 - [...] (Dictated but not read. Signed electronically by special education secretary to expedite) /[facility] 10/25/2024 Lumbar radiculitis (ICD-10 - M54.16) &nbsp [...] (Dictated but not read. Signed electronically by special education secretary to expedite) LV/mundod PLAN OF TREATMENT Next Appt Details Provider Name:Candi Darell iff, 01/22/2025 09:00:00 AM, [address], [address], [place], [address], Insurance Providers Payer Name Payer Address Payer Phone Subscriber Number Group Number Insured Name Patient Relationship to Insured Coverage Start Date Coverage End Date Medicare [place] [address] [address] [place] [address] [id number] Alisha Arguello Self - patient is the insured MEDICAL (GENERAL) HISTORY Medical History History ICD Code Hypertension Asthma/COPD Heart Disease Surgical History Surgery Date(Month/Year) Cervical Fusion Hospitalization History Reason Date(Month/Year) As per above.
--- OUTSIDE RECORDS SUMMARY | 2024-12-22 17:28 | XMS_ITS | Patient Health Record ---
Author Organization [facility] Address [address] [place] [address] Care Team Providers Care Rental Boats Caretaker Name Role Phone Herve Wilson MD Primary Care Provider Ernestina Villasenor Unavailable [phone] Allergies Allergen (clinical drug ingredient) Drug/Non Drug Allergy documented on EMR Reaction Allergy Type Onset Date Status montelukast Singulair Unknown Drug Allergy 05/28/2023 Acti ve Reason For Referral No Information Medications Medication SIG (Take, Route, Frequency, Duration) Notes Start Date End Date Status risperiDONE 1 MG Tablet TAKE 1 TABLET BY MOUTH EVERY NIGHT ONCE A DAY; Duration: 90 Active buPROPion HCl ER (SR) 200 MG Tablet Extended Release 12 Hour 1 TABLET Oral twice a day; Duration: 30 days Active predniSONE 5 MG Tablet Oral 05/28/2023 Unknown Alendronate Sodium 70 MG Tablet Oral 05/28/2023 Unknown DULoxetine HCl 60 MG Capsule Delayed Release Particles TAKE 1 CAPSULE BY MOUTH EVERY DAY FOR 90 DAYS; Duration: 90 Active Acetaminophen-Codeine #3 300-30 MG Tablet Oral 05/28/2023 Unknown ProAir HFA 108 (90 Base) MCG/ACT Aerosol Solution Inhalation 05/28/2023 Unknown Atorvastatin Calcium 20 MG Tablet Oral 05/28/2023 Unknown amLODIPine Besylate 5 MG Tablet Oral 05/28/2023 Unknown Omeprazole 40 MG Capsule Delayed Release Oral 05/28/2023 Unknown Metoprolol Tartrate 25 MG Tablet Oral 05/28/2023 Unknown Trelegy Ellipta 100-62.5-25 mcg Aerosol Powder Breath Activated Inhalation *Pick strength-form from [employer] for eRX* 05/28/2023 Unknown Levothyroxine Sodium 175 MCG Tablet Oral 05/28/2023 Unknown Meloxicam 15 MG Tablet Oral 05/28/2023 Unknown Topiramate 100 MG Tablet 1 tablet Oral three times daily; Duration: 90 days Active rOPINIRole HCl 1 MG Tablet 1 tablet Oral Once a day; Duration: 90 days Active Citalopram Hydrobromide 20 MG Tablet 1 tablet Oral Once a day; Duration: 90 days Active Social History Tobacco Use: Social History Observation Description Date Details (start date - stop date) Current Smoker NA - NA Sex Assigned At : Social History Observation Description Sex Assigned At Female Social History Miscellaneous: Social Info Question Answer Notes Advance Care Planning Are you your own decision-maker Yes Do you have Power of Kier Hand for Health or Medi dejah? Yes Do you have a power of litigation attorney associate for health? Yes Do you have power of litigation attorney associate for Medical ? Yes If yes, then please bring the POA paperwork so that we can upload it. No Tobacco Use: Social Info Question Answer Notes Tobacco Control (Standard) Tobacco use: Current every day smoker Additional Details Category Social Info Options Details Migrated Social History Migrated Social History Alcohol Intake: None 05/28/2023,Tobacco Years: Current every day smoker 05/28/2023 Problems Problem Type SNOMED Code ICD Code Onset Dates Problem Status W/U Status Risk Notes Problem Bipolar II disorder (35912424) Bipolar II disorder (F31.81) Active confirmed Problem Restless legs syndrome (99177280) Restless legs syndrome (G25.81) Active confirmed Vital Signs Heart Rate 49 /min 05/12/2024 Height-cm 160.02 cm 05/12/2024 Blood pressure diastolic 78 mm Hg 05/12/2024 Weight-kg 117.94 kg 05/12/2024 Height 63.00 in 05/12/2024 Blood pressure systolic 143 mm Hg 05/12/2024 Weight 260 lbs 05/12/2024 BMI 46.05 kg/m2 05/12/2024 Encounters Encounter Location Date Provider Diagnosis [facility] [address] [address] 02/11/2024 Ernestina Viera Bipolar II disorder F31.81 ; Restless legs syndrome G25.81 and Other care home (current) drug therapy Z79.899 [facility] [address] [facility] [address] [place] [address] 05/12/2024 Ernestina Viera Bipolar II disorder F31.81 ; Restless legs syndrome G25.81 and Other care home (current) drug therapy Z79.899 [facility] [address] [place] [address] 09/26/2024 Ernestina Viera Bipolar II disorder F31.81 Assessments Encounter Date Diagnosis (ICD Code) Assessment Notes Treatment Notes Treatment Clinical Notes Section Notes 02/11/2024 Bipolar II disorder (ICD-10 - F31.81) [...] LABS ORDERED LAST APT, ENCOURAGED TO COMPLETE 09/26/2024 Bipolar II disorder (ICD-10 - F31.81) 05/12/2024 Restless legs syndrome (ICD-10 - G25.81) [...] -cont ropinirole LABS ORDERED TODAY 02/11/2024 Other long distance operator (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 bipolar 2 disorder stable; reporting seasonal depression, declines medication adjustment -cont duloxetine 60mg qd -cont wellbutrin 200mg bid -cont topamax 100mg TID -cont citalopram 20mg daily -cont risperidone 1mg qd ---consider medication decrease after winter season to eliminate polypharmacy as able 2. RLS stable -cont ropinirole LABS ORDERED TODAY 05/12/2024 Other care home (current) drug therapy (ICD-10 - Z79.899) LABS ORDERED LAST APT, ENCOURAGED TO COMPLETE 05/12/2024 Other Stable, cont current medications. Refills [...] PANEL, STANDARD (7600) 02/11/2024 COMPREHENSIVE METABOLIC PANEL (39280) CBC (H/H, RBC, INDICES, WBC, PLT) (1759) 02/11/2024 HEMOGLOBIN A1c (496) 02/11/2024 VITAMIN B12/FOLATE, SERUM PANEL (7065) 1 04/13/2023 VITAMIN D,25-OH,TOTAL,IA (93116) [phone] Insurance Providers Payer Name Payer Address Payer Phone Subscriber Number Group Number Insured Name Patient Relationship to Insured Coverage Start Date Coverage End Date [facility] Medicare Replacement/ Advantage - Ppo [address] [address] [place] [address] [id number] TISHA FLEMING Self - patient is the insured Medical (General) History Medical History History ICD Code Problems: Bipolar II disorder Restless legs , Surgical History Surgery Date(Month/Year) Any surgical history Tonsilectomy/adenoids 03/08/1974 Hysterectomy (85946) 03/08/1988
[2024-12-22] MEDS: ACETAMINOPHEN 650 MG SUPPOSITORY RECTAL (18:21)
[2024-12-22] MEDS: cefTRIAXone 1 GM in SODIUM CHLORIDE 0.9% IV 50 ML 100 ML IVPB (18:22)
[2024-12-22] MEDS: ALBUTEROL SULFATE NEB 2.5 MG/3 ML INH INHALATION (18:54)
[2024-12-22] MEDS: AZITHROMYCIN IV 500 MG in SODIUM CHLORIDE 0.9% IV 250 ML IVPB (19:02)
[2024-12-22] MEDS: FUROSEMIDE INJ 40 MG/4 ML VIAL 20 MG IV PUSH (19:10)
--- NOTE | 2024-12-22 19:46 | ADMGEN ---
This patient, Alisha Arguello, was admitted to IMU Room 207-01 on 12/22/24 at 1933. Patient/family oriented to hospital policies and general routines including ID bracelet, bed and alarms, visiting hours, pain management, procedures, bathroom and other care routines, personal items, smoking policy, room service/diet, and visiting hours. Pt w/AMS and continuous BIPAP upon arrival to unit and is unable to answer admission questions, H&P. No family present at time of admission. Info obtained from Pt's medical record and correction papers. Information on how to activate the Rapid Response Team has been discussed. Patient/Family are encouraged to report perceived risks to care and to ask questions if they do not understand what they are told or what they should do.
--- NOTE | 2024-12-22 19:58 | P.HP_ITS ---
H&P: HPI History of Present Illness Date/Time: 12/22/24 19:58 Chief Complaint: Altered mental status Narrative: 69-year-old female history of COPD, diastolic dysfunction, rheumatoid arthritis, anxiety depression bipolar, hypertension hyperlipidemia and hyperthyroidism presents the hospital with altered mental status and shortness of breath. Patient is tachypneic on BiPAP answering yes or no questions. She states that her breathing is not better. Patient denies fever chills. HPI is limited due to patient being severely short of breath. Lab work shows hemoglobin 8.1 with baseline being around 10.5, INR 1.1, sodium 136 BUN of 25, creatinine of 0.89, glucose of 134, C reactive protein of 5.3, proBNP of 174, influenza A/B RSV and COVID negative. Chest x-ray shows CHF with superimposed probable pneumonia. EKG shows sinus rhythm with QTC of 452. Review of Systems Review of Systems: ROS unobtainable: Yes unobtainable due to mental status [facility] Past Medical History Medical History (Updated 12/22/24 @ 22:45 by Aniya Smith, JAMES) Pulmonary hypertension Diastolic dysfunction Chronic obstructive pulmonary disease Rheumatoid arthritis Carpal tunnel syndrome Anxiety and depression Bipolar 1 disorder Hyperlipemia Hypertension Hypothyroidism Surgical History Surgical History Status post insertion of sacral nerve stimulator History of hysterectomy History of thyroidectomy History of total left knee replacement History of tonsillectomy Family History Family History Mother Hypertension COPD (chronic obstructive pulmonary disease) Lung cancer Father Hypertension COPD (chronic obstructive pulmonary disease) Lung cancer Grandparent Cerebrovascular accident maternal grandmother Son Diabetes mellitus Social History Social History Social History: Surrogate medical decision maker: Adam Arguello, son. Code status: Full code. Smoking packs per day: 0.5 Smoking cigarettes per day: 10.0 Years smoked: 45 Smoking pack-years: 22.50 Smoking status: Current every day smoker Tobacco type: cigarettes Alcohol intake: former Alcohol use details: FORMER ALCOHOLIC QUIT 2009 Substance use: unknown Substance use type: unknown Do You Feel Safe in your Home?: Yes Lack of Transportation: No Lack of Food: Never True Current Housing: I Have Housing Concerned About Future Housing: No Difficulty Paying Gas/Electric Bills: YES Difficulty Paying for Meds: YES Currently Unemployed: No Education: High School Diploma/GED Difficulty w/ Childcare or Family Care: No Living arrangements: alone Additional living arrangements comments: Lives alone. She has 1 son. 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 Spiritual care concerns: No Agree to blood products: Yes Meds Home Medications and Allergies Home Medications ?Medication ?Instructions ?Recorded ?Confirmed ?Type albuterol sulfate 90 mcg/actuation 2 inh inhalation Q6 H PRN Shortness 08/25/21 12/22/24 History aerosol inhaler Of Breath Or Wheezing alendronate 70 mg tablet 1 tablet PO WEEKLY 08/25/21 12/22/24 History amlodipine 5 mg tablet 5 mg PO DAILY 08/25/2112/22 History atorvastatin 20 mg tablet 20 mg PO QPM 08/25/21 History bupropion HCl 200 mg tablet,12 hr 200 mg PO BID 12/22/24 History sustained-release citalopram 20 mg tablet 20 mg PO DAILY 08/25/2112/06 History duloxetine 60 mg capsule,delayed 60 mg PO DAILY 12/22/24 History release etanercept 50 mg/mL (1 mL) 1 ea subcut WEEKLY 08/25/21 12/22/24 History subcutaneous pen injector (Endwainl Raz) leflunomide 20 mg tablet 20 mg PO DAILY 08/25/2112/06 History metoprolol tartrate 25 mg tablet 25 mg PO DAILY 12/22/24 History omeprazole 40 mg capsule,delayed 40 mg PO DAILY 12/22/24 History release risperidone 1 mg tablet 1 mg PO HS 08/25/21 12/22/24 History ropinirole 1 mg tablet 1 mg PO HS 08/25/21 12/22/24 History topiramate 100 mg tablet 100 mg PO TID 08/25/2112/22 History levothyroxine 150 mcg tablet 150 mcg PO QAM 04/21/24 1 History prednisone 5 mg tablet 5 mg PO DAILY 04/21/2412/22 History multivitamin 1 tablet PO DAILY #30 tabs 0 08/30/24 12/22/24 Rx furosemide 40 mg tablet 40 mg PO DAILY 12/22/2412/06 History meloxicam 15 mg tablet 15 mg PO DAILY 12/22/2412/06 History naloxone 4 mg/actuation nasal 4 mg intranasal Q2M PRN opioid 12/22/24 12/22/24 History spray (Narcan) overdose oxcarbazepine 300 mg tablet 300 mg PO TID 12/22/24 History Allergies Allergy/AdvReac Type Severity Reaction Status Date / Time montelukast Allergy Other Verified 12/22/24 20:02 Vital Signs Vital Signs - 24 hr 12/22/24 16:08 12/22/24 16:28 12/22/24 16:28 Temperature 100.2 F H Pulse Rate 77 73 Respiratory Rate 36 H Blood Pressure 148/72 H Pulse Oximetry 93 100 Oxygen Delivery Nasal Cannula BiPAP Oxygen Flow Rate 2 12/22/24 16:54 12/22/24 16:56 12/22/24 17:16 Temperature Pulse Rate 77 76 74 Respiratory Rate 22 H 25 H 26 H Blood Pressure Pulse Oximetry 95 99 Oxygen Delivery BiPAP Oxygen Flow Rate 12/22/24 18:24 12/22/24 19:08 12/22/24 19:09 Temperature 100.8 F H 100.8 F H Pulse Rate 68 71 Respiratory Rate 24 H 21 H Blood Pressure 111/51 L 111/50 L Pulse Oximetry 100 100 Oxygen Delivery Oxygen Flow Rate Exam Narrative: General: Mild distress HEENT: normocephalic, atraumatic. Mucous membranes moist. EOMI, PERRLA, bilateral sclera anicteric, no conjunctival injection. Neck supple without JVD, lymphadenopathy, or bruit. Respiratory: Expiratory wheezes on BiPAP Cardiovascular: Regular rate and rhythm, normal S1-S2 upon ascultation. No murmurs, rubs, or clicks. PMI is nondisplaced, capillary refill less than 3 second. Abdomen: Soft, round, no pulsatile masses, nondistended and nontender. No rebound, no guarding. No CVA tenderness, no hepatosplenomegaly. Bowel sounds present to all four quadrants. No high pitch or tinkling sounds, resonant to percussion. Extremities: No cyanosis, clubbing, . Pulses are palpable 2/2. Active ROM to a ll four extremities. 2+ edema up to knees Neuro: Alert and orientated x 4. PERRLA. Cranial nerves 2-12 intact without focal deficit. Skin: Warm, dry, and intact, without rash, erythema, or lesion. Psych: pleasant, cooperative, normal speech, normal affect, no hallucinations, no dysarthia H&P: Results Labs Labs: Short CBC 12/22/24 Range/Units 16:27 WBC 6.9 (4.5-10.0) K/mm3 Hgb 8.1 L (12.0-15.0) g/dL Hct 28.7 L (37.0-47.0) % Plt Count 298 (150-375) k/mm3 BMP 12/22/24 16:27 Sodium 136 L Potassium 4.2 Chloride 102 Carbon Dioxide 25 BUN 25 H Creatinine 0.98 Glucose 134 H Calcium 9.0 Liver Function 12/22/24 Range/Units 16:27 Total Bilirubin 0.4 (0.2-1.3) mg/dL AST 22 (14-36) U/L ALT 18 (6-35) U/L Alkaline Phosphatase 74 (38-126) U/L Albumin 3.6 (3.5-5.1) g/dL Assessment and Plan Assessment and plan (1) Acute CHF: Code(s): I50.9 - Heart failure, unspecified Status: Acute Assessment and Plan: Cardiology consulted IV Lasix given in the ED IV Lasix daily Fluid restriction Daily weight (2) Acute exacerbation of chronic obstructive airways disease: Code(s): J44.1 - Chronic obstructive pulmonary disease with (acute) exacerbation Status: Acute Assessment and Plan: Solu-Medrol followed by prednisone Guaifenesin DuoNebs (3) Pneumonia: Code(s): J18.9 - Pneumonia, unspecified organism Status: Acute Assessment and Plan: Rocephin and azithromycin Blood cultures pending Legionella pending (4) Hypertension: Code(s): I10 - Essential (primary) hypertension Status: Acute Assessment and Plan: Hold BP medications while aggressively diuresing (5) Hypothyroidism: Code(s): E03.9 - Hypothyroidism, unspecified Status: Acute Assessment and Plan: Continue levothyroxine (6) Anemia: Code(s): D64.9 - Anemia, unspecified Status: Acute Assessment and Plan: Anemia workup No signs of bleeding to be delusional (7) Bipolar 1 disorder: Code(s): F31.9 - Bipolar disorder, unspecified Status: Acute Assessment and Plan: Continue Wellbutrin, Cymbalta, trileptal and risperidone Quality VTE Prophylaxis VTE prophylaxis: mechanical ordered and pharmacologic ordered Hospitalist [facility] Advance Care Plan I have confirmed that the patient's Advanced Care Plan is present, code status is documented, or surrogate decision maker is listed in patient medical record.: Yes Medication Reconciliation I have utilized all available resources to obtain, update and review the patients current medications (includes all prescriptions, OTC, herbals, cannabis, and nutritional supplements).: Yes
[2024-12-22] MEDS: FUROSEMIDE INJ 40 MG/4 ML VIAL IV PUSH (22:41)
[2024-12-23] VITALS (35 sets, daily range): BP systolic 109–126; BP diastolic 44–97; PULSE 56–77; RESP 17–28; TEMP 36.3–39.3; O2SAT 95–100
[2024-12-23] MEDS: IPRATROPIUM 0.5 MG/ALBUTEROL SULFATE 2.5 MG (BASE) AMPUL.NEB 3 ML INHALATION ×4 (01:15→20:43)
[2024-12-23] MEDS: ACETAMINOPHEN 650 MG SUPPOSITORY RECTAL (01:23)
[2024-12-23 05:02] LABS: Iron < 10 ug/dL (37-170)
[2024-12-23 05:13] LABS: Percent Iron Saturation 4 % (20-50)
[2024-12-23 05:20] LABS: Anion Gap 7 mmol/L (4-12); Blood Urea Nitrogen 28 mg/dL (7-17); Calcium 8.4 mg/dL (8.4-10.2); Carbon Dioxide 27 mmol/L (22-30); Chloride 103 mmol/L (98-107); Estimated CRCL calculation 57 ml/min; Estimated Glomerular Filt Rate 53; Glucose 153 mg/dL (65-110); Potassium 3.6 mmol/L (3.4-5.0); Sodium 137 mmol/L (137-145)
[2024-12-23 05:35] LABS: Thyroid Stimulating Hormone Reflex 0.236 uIU/mL (0.465-4.68)
[2024-12-23 05:39] LABS: Ferritin 20.60 ng/mL (11.1-264)
[2024-12-23 06:02] LABS: Free T4 Free Thyroxine Reflex 1.34 ng/dL (0.78-2.19)
[2024-12-23 06:36] LABS: Vitamin B12 503.0 pg/mL (239-931)
[2024-12-23 06:44] LABS: Total Triiodothyronine (T3) 0.54 NG/ML (0.82-1.58)
[2024-12-23 06:48] LABS: Hematocrit 24.5 % (37.0-47.0); Immature Granulocyte Percent A 0.6 % (0-0.5); Lymphocytes Absolute Auto 0.45 K/mm3 (0.9-3.2); Mean Corpuscular HGB Conc 28.2 g/dl (32-36); Mean Corpuscular Hemoglobin 23.1 pg (26-34); Mean Corpuscular Volume 81.9 fl (80-100); Nucleated Red Blood Cells Absolute Auto 0.000 K/mm3 (0.0-0.012); Nucleated Red Blood Cells Perc 0.0 % (0.0-0.2); Platelet Count Result 222 k/mm3 (150-375); Red Blood Count 2.99 M/mm3 (4.2-5.4); White Blood Count 8.0 K/mm3 (4.5-10.0)
[2024-12-23 06:50] LABS: Hemoglobin 6.9 g/dL (12.0-15.0)
[2024-12-23 07:14] LABS: Hypochromasia 2+; Ovalocytes 1+; Schistocytes None Seen
[2024-12-23 07:16] LABS: Microcytosis 1+ (NORMAL)
[2024-12-23] MEDS: DULoxetine HCL 60 MG CAPSULE.DR PO (09:02)
[2024-12-23] MEDS: guaiFENesin 12 HR 600 MG TABCR 1200 MG PO ×2 (09:02→21:29)
[2024-12-23] MEDS: MELOXICAM 7.5 MG TABLET 15 MG PO (09:02)
[2024-12-23] MEDS: buPROPion HCL SR (12HR) 100 MG TABCR 200 MG PO ×2 (09:02→21:29)
[2024-12-23] MEDS: METOPROLOL TARTRATE 25 MG TABLET PO (09:02)
[2024-12-23] MEDS: PANTOPRAZOLE 40 MG TABLET PO ×2 (09:03→16:53)
[2024-12-23] MEDS: ENOXAPARIN 40 MG/0.4 ML SYRINGE SUB-Q (09:04)
[2024-12-23] MEDS: FUROSEMIDE INJ 40 MG/4 ML VIAL IV PUSH (09:04)
--- NOTE | 2024-12-23 09:38 | PM.CNCAR ---
Assessment and Plan Assessment and plan (1) COPD exacerbation: Code(s): J44.1 - Chronic obstructive pulmonary disease with (acute) exacerbation Status: Acute Assessment and Plan: 69-year-old female with hypertension, COPD, chronic anemia, dyslipidemia, hypothyroidism on thyroxine replacement, psychiatric disorder, tobacco abuse. Patient presented with worsening dyspnea which is likely from underlying COPD and/emphysema, precipitated pneumonia. Patient currently not in CHF. -appropriate antibiotics as per primary team. Supplemental oxygen, bronchodilators as per primary team. Patient at the time of evaluation was on BiPAP. -repeat echo with Doppler in progress. -no additional cardiac testing anticipated unless otherwise indicated -will follow on p.r.n. basis (2) Hypertension: Code(s): I10 - Essential (primary) hypertension Status: Acute Assessment and Plan: Management as per primary team. (3) Tobacco abuse: Code(s): Z72.0 - Tobacco use Status: Acute Assessment and Plan: Smoking cessation counseling was done (4) Anemia: Code(s): D64.9 - Anemia, unspecified Status: Acute Assessment and Plan: Evaluation and management as per primary team History of Present Illness History of Present Illness Consult date/time: 12/23/24 09:38 Requesting physician: Aniya Smith APRN Reason For Visit: CHF, pneumonia Narrative: DATE OF CONSULT: 12/23/2024 REASON FOR CONSULT: CHF REQUESTING PHYSICIAN: JAMES Smith CHIEF COMPLAINT: Shortness of breath HPI: 69-year-old female with hypertension, COPD, chronic anemia, dyslipidemia, hypothyroidism on thyroxine replacement, psychiatric disorder, tobacco abuse. Patient presented to [facility] Emergency Room on 12/22/2024 with worsening shortness of breath. No chest pain. ABG showed O2 low at 88. EKG at presentation on my personal interpretation showed sinus rhythm, Pac, LAFB. Chest x-ray showed pulmonary vascular congestion with Superimposed probable pneumonia. Other labs showed low hemoglobin of 8.1 grams/deciliter at presentation which decreased to 6.9 grams/deciliter. NT proBNP minimally elevated at 174. TSH low at 0.236 with normal free T4. Recent echo from 06/24/2024 reportedly showed mild LVH, normal LV systolic and diastolic function, mild MR, [id number] aortic regurgitation, RVSP 27 mmHg. Review of Systems Review of Systems: General: Positive for fatigue Psychological: Negative for anxiety, depression Ophthalmic: negative for loss of vision ENT: Negative for epistaxis, headaches Allergy and immunology: Negative for hives, nasal congestion Hematologic and lymphatic: Negative for overt bleeding problems Endocrine: Negative for hot flashes, palpitations Respiratory: Positive for cough, dyspnea Cardiovascular: Negative for chest pain Gastrointestinal: Negative for abdominal pain Musculoskeletal: Negative for myalgia, joint pains Neurological: Negative for weakness Dermatological: Negative for rash, skin discoloration PMFSH Past Medical History Medical History Pulmonary hypertension Diastolic dysfunction Chronic obstructive pulmonary disease Rheumatoid arthritis Carpal tunnel syndrome Anxiety and depression Bipolar 1 disorder Hyperlipemia Hypertension Hypothyroidism Surgical History Surgical History Status post insertion of sacral nerve stimulator History of hysterectomy History of thyroidectomy History of total left knee replacement History of tonsillectomy Family History Family History Mother Hypertension COPD (chronic obstructive pulmonary disease) Lung cancer Father Hypertension COPD (chronic obstructive pulmonary disease) Lung cancer Grandparent Cerebrovascular accident maternal grandmother Son Diabetes mellitus Social History Social History Social History: Surrogate medical decision maker: Adam Arguello, doc. Code status: Full code. Smoking packs per day: 0.5 Smoking cigarettes per day: 10.0 Years smoked: 45 Smoking pack-years: 22.50 Smoking status: Current every day smoker Tobacco type: cigarettes Alcohol intake: former Alcohol use details: FORMER ALCOHOLIC QUIT 2009 Substance use: unknown Substance use type: unknown Do You Feel Safe in your Home?: Yes Lack of Transportation: No Lack of Food: Never True Current Housing: I Have Housing Concerned About Future Housing: No Difficulty Paying Gas/Electric Bills: YES Difficulty Paying for Meds: YES Currently Unemployed: No Education: High School Diploma/GED Difficulty w/ Childcare or Family Care: No Living arrangements: alone Additional living arrangements comments: Lives alone. She has 1 son. 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 Spiritual care concerns: No Agree to blood products: Yes Meds Home Medications and Allergies Home Medications ?Medication ?Instructions ?Recorded ?Confirmed ?Type albuterol sulfate 90 mcg/actuation 2 inh inhalation Q6H PRN Shortness 08/25/21 12/22/24 History aerosol inhaler Of Breath Or Wheezing alendronate 70 mg tablet 1 tablet PO WEEKLY 08/25/21 12/22/24 History amlodipine 5 mg tablet 5 mg PO DAILY 08/25/21 12/22/24 History atorvastatin 20 mg tablet 20 mg PO QPM 08/25/21 12/22/24 History bupropion HCl 200 mg tablet,12 hr 200 mg PO BID 08/25/21 12/22/24 History sustained-release citalopram 20 mg tablet 20 mg PO DAILY 08/25/21 12/22/24 History duloxetine 60 mg capsule,delayed 60 mg PO DAILY 08/25/21 12/22/24 History release etanercept 50 mg/mL (1 mL) 1 ea subcut WEEKLY 08/25/21 12/22/24 History subcutaneous pen injector (Enbrel SureClick) leflunomide 20 mg tablet 20 mg PO DAILY 08/25/21 12/22/24 History metoprolol tartrate 25 mg tablet 25 mg PO DAILY 08/25/21 12/22/24 History omeprazole 40 mg capsule,delayed 40 mg PO DAILY 08/25/21 12/22/24 History release risperidone 1 mg tablet 1 mg PO HS 08/25/21 12/22/24 History ropinirole 1 mg tablet 1 mg PO HS 08/25/21 12/22/24 History topiramate 100 mg tablet 100 mg PO TID 08/25/21 12/22/24 History levothyroxine 150 mcg tablet 150 mcg PO QAM 04/21/24 12/22/24 History prednisone 5 mg tablet 5 mg PO DAILY 04/21/24 12/22/24 History multivitamin 1 tablet PO DAILY #30 tabs 08/30/24 12/22/24 Rx furosemide 40 mg tablet 40 mg PO DAILY 12/22/24 12/22/24 History meloxicam 15 mg tablet 15 mg PO DAILY 12/22/24 12/22/24 History naloxone 4 mg/actuation nasal 4 mg intranasal Q2M PRN opioid 12/22/24 12/22/24 History spray (Narcan) overdose oxcarbazepine 300 mg tablet 300 mg PO TID 12/22/24 12/22/24 History Allergies Allergy/AdvReac Type Severity Reaction Status Date / Time montelukast Allergy Other Verified 12/22/24 20:02 Vital Signs Vital Signs - 24 hr 12/22/24 16:08 12/22/24 16:28 12/22/24 16:28 Temperature 37.9 C H Pulse Rate 77 73 Respiratory Rate 36 H Blood Pressure 148/72 H Pulse Oximetry 93 100 Oxygen Delivery Nasal Cannula BiPAP Oxygen Flow Rate 2 Fraction of Inspired Oxygen 12/22/24 16:54 12/22/24 16:56 12/22/24 17:16 Temperature Pulse Rate 77 76 74 Respiratory Rate 22 H 25 H 26 H Blood Pressure Pulse Oximetry 95 99 Oxygen Delivery BiPAP Oxygen Flow Rate Fraction of Inspired Oxygen 12/22/24 18:24 12/22/24 19:08 12/22/24 19:09 Temperature 38.2 C H 38.2 C H Pulse Rate 68 71 Respiratory Rate 24 H 21 H Blood Pressure 111/51 L 111/50 L Pulse Oximetry 100 100 Oxygen Delivery Oxygen Flow Rate Fraction of Inspired Oxygen 12/22/24 19:35 12/22/24 19:39 12/22/24 19:40 Temperature 37.7 C H Pulse Rate 74 74 74 Respiratory Rate 23 H 23 H Blood Pressure 107/50 L Pulse Oximetry 93 93 Oxygen Delivery BiPAP Oxygen Flow Rate Fraction of Inspired Oxygen 35 12/22/24 20:00 12/22/24 21:05 12/22/24 22:00 Temperature Pulse Rate 69 79 70 Respiratory Rate 18 Blood Pressure Pulse Oximetry 97 Oxygen Delivery BiPAP Oxygen Flow Rate Fraction of Inspired Oxygen 12/23/24 00:00 12/23/24 00:00 12/23/24 00:20 Temperature 39.3 C H Pulse Rate 77 77 77 Respiratory Rate 26 H 26 H Blood Pressure 118/50 L Pulse Oximetry 98 98 Oxygen Delivery BiPAP Oxygen Flow Rate Fraction of Inspired Oxygen 35 12/23/24 01:08 12/23/24 01:16 12/23/24 01:23 Temperature 39.3 C H Pulse Rate 70 70 Respiratory Rate 23 H 23 H Blood Pressure Pulse Oximetry 97 Oxygen Delivery BiPAP Oxygen Flow Rate Fraction of Inspired Oxygen 12/23/24 01:33 12/23/24 01:46 12/23/24 02:23 Temperature 37.1 C Pulse Rate 71 75 Respiratory Rate 19 Blood Pressure Pulse Oximetry Oxygen Delivery Oxygen Flow Rate Fraction of Inspired Oxygen 12/23/24 02:23 12/23/24 02:53 12/23/24 03:55 Temperature 37.1 C 37.1 C Pulse Rate 63 Respiratory Rate 19 Blood Pressure Pulse Oximetry 97 Oxygen Delivery BiPAP Oxygen Flow Rate Fraction of Inspired Oxygen 35 12/23/24 04:00 12/23/24 04:00 12/23/24 04:52 Temperature 36.9 C Pulse Rate 63 64 73 Respiratory Rate 19 22 H Blood Pressure 113/44 L Pulse Oximetry 97 97 Oxygen Delivery BiPAP Oxygen Flow Rate Fraction of Inspired Oxygen 12/23/24 05:25 12/23/24 07:26 12/23/24 07:30 Temperature Pulse Rate 62 56 L 56 L Respiratory Rate 22 H 22 H Blood Pressure Pulse Oximetry 100 Oxygen Delivery BiPAP Oxygen Flow Rate Fraction of Inspired Oxygen 12/23/24 07:32 12/23/24 08:00 12/23/24 08:00 Temperature 36.9 C Pulse Rate 56 L 62 Respiratory Rate 19 20 Blood Pressure 124/49 L Pulse Oximetry 99 100 Oxygen Delivery BiPAP Oxygen Flow Rate Fraction of Inspired Oxygen 35 Exam Narrative: PHYSICAL EXAMINATION: GENERAL: Alert, on BiPAP at the time of exam MENTAL STATUS: affect appropriate to mood EYES: Extraocular movements intact, no pallor EARS: External ears appear normal, hearing grossly normal NOSE: On BiPAP MOUTH: On BiPAP NECK: Supple, no JVD CHEST: Diminished breath sounds HEART: Normal rate, regular rhythm, muffled heart sounds ABDOMEN: Soft, nontender NEUROLOGICAL: Alert, no distress MUSCULOSKELETAL: No major deformity, no amputation EXTREMITIES: Trace pedal edema, no clubbing, no cyanosis SKIN: no rash on the exposed area, no cyanosis Results Labs and Meds 12/23/24 06:42 12/23/24 04:20 Lab results: Cardiac Enzymes 12/22/24 Range/Units 16:27 AST 22 (14-36) U/L Coagulation 12/22/24 Range/Units 16:27 PT 13.9 (11.1-14.7) Seconds APTT 28.1 (22.3-36.8) Seconds CBC 12/22/24 12/23/24 Range/Units 16:27 06:42 WBC 6.9 8.0 (4.5-10.0) K/mm3 RBC 3.53 L 2.99 L (4.2-5.4) M/mm3 Hgb 8.1 L 6.9 L* (12.0-15.0) g/dL Hct 28.7 L 24.5 L (37.0-47.0) % Plt Count 298 222 (150-375) k/mm3 Lymph # (Auto) 0.82 L 0.45 L (0.9-3.2) K/mm3 Shannon # (Auto) 0.8 H 0.7 H (0.1-0.6) K/mm3 Eos # (Auto) 0.1 0.0 (0-0.3) K/mm3 Baso # (Auto) 0.0 0.0 (0.0-0.1) K/mm3 Comprehensive Metabolic Panel 12/22/24 12/23/24 Range/Units 16:27 04:20 Sodium 136 L 137 (137-145) mmol/L Potassium 4.2 3.6 (3.4-5.0) mmol/L Chloride 102 103 (98-107) mmol/L Carbon Dioxide 25 27 (22-30) mmol/L BUN 25 H 28 H (7-17) mg/dL Creatinine 0.98 1.04 H (0.7-1.0) mg/dL Glucose 134 H 153 H (65-110) mg/dL Calcium 9.0 8.4 (8.4-10.2) mg/dL AST 22 (14-36) U/L ALT 18 (6-35) U/L Alkaline Phosphatase 74 (38-126) U/L Total Protein 7.1 (6.3-8.2) g/dL Albumin 3.6 (3.5-5.1) g/dL Intake and Output 12/22/24 12/23/24 12/23/24 23:59 07:59 15:59 Intake Total 300 0 Output Total 0 700 Balance 300 -700 0 Intake: IV 300 Azithromycin IV 500 mg In 250 Sodium Chloride 0.9% IV 250 ml @ 250 mls/hr IVPB ONCE STA Rx#: [id number] cefTRIAXone 1 gm In Sodium 50 Chloride 0.9% IV 50 ml @ 100 mls/hr IVPB ONCE STA Rx#: [id number] Oral 0 Output: Urine 700 Catheter Urine 0 External/Condom 0 Patient Weight 12/23/24 23:59 Weight 110.7 kg
--- NOTE | 2024-12-23 09:48 | PC.NURSE ---
Pt's hemoglobin went from 8.1 to 6.9. Night time RN reported critical hgb to MD and one unit of prbc was ordered. Pt has a history of chronic anemia, iron deficiency. Iron level was <10 on lab results today. Called and spoke with Dr Atkins and reported that patients prior hemoglobin was 8.1 with a drop to 6.9 this morning, reviewed medical history, and iron level. Dr Atkins stated he wanted a redraw on H&H with results reported to him before blood is administered. H&H ordered.
[2024-12-23 11:09] LABS: Hematocrit 24.9 % (37.0-47.0); Hemoglobin 7.0 g/dL (12.0-15.0)
--- NOTE | 2024-12-23 14:31 | P.PNIM_ITS ---
Progress Note: A&P Assessment and Plan (1) Acute CHF: Code(s): I50.9 - Heart failure, unspecified Status: Acute Assessment and Plan: Cardiology consulted IV Lasix given in the ED IV Lasix daily Fluid restriction Daily weight (2) Acute exacerbation of chronic obstructive airways disease: Code(s): J44.1 - Chronic obstructive pulmonary disease with (acute) exacerbation Status: Acute Assessment and Plan: Solu-Medrol followed by prednisone Guaifenesin DuoNebs (3) Pneumonia: Code(s): J18.9 - Pneumonia, unspecified organism Status: Acute Assessment and Plan: Rocephin and azithromycin Blood cultures pending Legionella pending (4) Hypertension: Code(s): I10 - Essential (primary) hypertension Status: Acute Assessment and Plan: Hold BP medications while aggressively diuresing (5) Hypothyroidism: Code(s): E03.9 - Hypothyroidism, unspecified Status: Acute Assessment and Plan: Continue levothyroxine (6) Anemia: Code(s): D64.9 - Anemia, unspecified Status: Acute Assessment and Plan: Anemia workup No signs of bleeding Hemoglobin down to be dilutional. Will continue to monitor (7) Bipolar 1 disorder: Code(s): F31.9 - Bipolar disorder, unspecified Status: Acute Assessment and Plan: Continue Wellbutrin, Cymbalta, trileptal and risperidone Subjective Date/time seen: 12/23/24 14:31 Interval history: Patient feels better. Was on BiPAP earlier today. No nausea vomiting. Took her off of BiPAP the room and placed on oxygen via nasal cannula 2 L Review of Systems Review of Systems: All systems reviewed & are unremarkable except as noted in HPI and below Exam Narrative: General: Alert and oriented x3 no acute distress HEENT: normocephalic, atraumatic. Mucous membranes moist. Respiratory: Diminished breath sounds bilaterally no wheezes Cardiovascular: Regular rate and rhythm, normal S1-S2 upon ascultation. Abdomen: Soft, round, no pulsatile masses, nondistended and nontender. No rebound, no guarding. Extremities: No cyanosis, clubbing, . Pulses are palpable 2/2. Bilateral lower extremity edema pitting Neuro: Alert and orientated x 4. PERRLA. Cranial nerves 2-12 intact without focal deficit. Skin: Warm, dry, and intact, without rash, erythema, or lesion. Psych: pleasant, cooperative, normal speech, normal affect, no hallucinations, no dysarthia Objective Data Vital Signs Vital Signs: Vital Signs - 24 hr 12/22/24 16:08 12/22/24 16:28 12/22/24 16:28 Temperature 100.2 F H Pulse Rate 77 73 Respiratory Rate 36 H Blood Pressure 148/72 H Pulse Oximetry 93 100 Oxygen Delivery Nasal Cannula BiPAP Oxygen Flow Rate 2 Fraction of Inspired Oxygen 12/22/24 16:54 12/22/24 16:56 12/22/24 17:16 Temperature Pulse Rate 77 76 74 Respiratory Rate 22 H 25 H 26 H Blood Pressure Pulse Oximetry 95 99 Oxygen Delivery BiPAP Oxygen Flow Rate Fraction of Inspired Oxygen 12/22/24 18:24 12/22/24 19:08 12/22/24 19:09 Temperature 100.8 F H 100.8 F H Pulse Rate 68 71 Respiratory Rate 24 H 21 H Blood Pressure 111/51 L 111/50 L Pulse Oximetry 100 100 Oxygen Delivery Oxygen Flow Rate Fraction of Inspired Oxygen 12/22/24 19:35 12/22/24 19:39 12/22/24 19:40 Temperature 99.9 F H Pulse Rate 74 74 74 Respiratory Rate 23 H 23 H Blood Pressure 107/50 L Pulse Oximetry 93 93 Oxygen Delivery BiPAP Oxygen Flow Rate Fraction of Inspired Oxygen 35 12/22/24 20:00 12/22/24 21:05 12/22/24 22:00 Temperature Pulse Rate 69 79 70 Respiratory Rate 18 Blood Pressure Pulse Oximetry 97 Oxygen Delivery BiPAP Oxygen Flow Rate Fraction of Inspired Oxygen 12/23/24 00:00 12/23/24 00:00 12/23/24 00:20 Temperature 102.8 F H Pulse Rate 77 77 77 Respiratory Rate 26 H 26 H Blood Pressure 118/50 L Pulse Oximetry 98 98 Oxygen Delivery BiPAP Oxygen Flow Rate Fraction of Inspired Oxygen 35 12/23/24 01:08 12/23/24 01:16 12/23/24 01:23 Temperature 102.8 F H Pulse Rate 70 70 Respiratory Rate 23 H 23 H Blood Pressure Pulse Oximetry 97 Oxygen Delivery BiPAP Oxygen Flow Rate Fraction of Inspired Oxygen 12/23/24 01:33 12/23/24 01:46 12/23/24 02:23 Temperature 98.7 F Pulse Rate 71 75 Respiratory Rate 19 Blood Pressure Pulse Oximetry Oxygen Delivery Oxygen Flow Rate Fraction of Inspired Oxygen 12/23/24 02:23 12/23/24 02:53 12/23/24 03:55 Temperature 98.7 F 98.7 F Pulse Rate 63 Respiratory Rate 19 Blood Pressure Pulse Oximetry 97 Oxygen Delivery BiPAP Oxygen Flow Rate Fraction of Inspired Oxygen 35 12/23/24 04:00 12/23/24 04:00 12/23/24 04:52 Temperature 98.4 F Pulse Rate 63 64 73 Respiratory Rate 19 22 H Blood Pressure 113/44 L Pulse Oximetry 97 97 Oxygen Delivery BiPAP Oxygen Flow Rate Fraction of Inspired Oxygen 12/23/24 05:25 12/23/24 07:26 12/23/24 07:30 Temperature Pulse Rate 62 56 L 56 L Respiratory Rate 22 H 22 H Blood Pressure Pulse Oximetry 100 Oxygen Delivery BiPAP Oxygen Flow Rate Fraction of Inspired Oxygen 12/23/24 07:32 12/23/24 08:00 12/23/24 08:00 Temperature 98.4 F Pulse Rate 56 L 62 Respiratory Rate 19 20 Blood Pressure 124/49 L Pulse Oximetry 99 100 Oxygen Delivery BiPAP Oxygen Flow Rate Fraction of Inspired Oxygen 35 12/23/24 08:00 12/23/24 09:38 12/23/24 11:14 Temperature Pulse Rate 57 L 60 Respiratory Rate Blood Pressure Pulse Oximetry 96 Oxygen Delivery BiPAP Oxygen Flow Rate Fraction of Inspired Oxygen 35 12/23/24 11:37 12/23/24 12:00 12/23/24 12:00 Temperature 98.9 F Pulse Rate 63 59 L Respiratory Rate 28 H Blood Pressure 114/54 L Pulse Oximetry 98 100 Oxygen Delivery Nasal Cannula Oxygen Flow Rate 2 Fraction of Inspired Oxygen 12/23/24 13:51 12/23/24 14:01 12/23/24 14:03 Temperature Pulse Rate 60 64 63 Respiratory Rate 20 Blood Pressure Pulse Oximetry 96 Oxygen Delivery Nasal Cannula Oxygen Flow Rate 2 Fraction of Inspired Oxygen 12/23/24 14:10 Temperature Pulse Rate 63 Respiratory Rate 20 Blood Pressure Pulse Oximetry Oxygen Delivery Oxygen Flow Rate Fraction of Inspired Oxygen Intake/Output Intake/Output: Intake & Output 12/20/24 12/21/24 12/22/24 12/23/24 23:59 23:59 23:59 23:59 Intake Total 300 220 Output Total 0 700 Balance 300 -480 Meds/Results Medications: Active Medications Generic Name Dose Route Start Last Admin Trade Name Freq PRN Reason Stop Dose Admin Acetaminophen 650 mg 12/22/24 17:09 12/23/24 01:23 Acetaminophen 650 Mg Suppository RECTAL 650 mg Q6H PRN Administration Mild Pain (1-3) or Fever Acetaminophen 650 mg 12/22/24 20:03 Acetaminophen 325 Mg Tablet PO Q4H PRN Mild Pain (1-3) or Fever Albuterol/Ipratropium 3 ml 12/23/24 02:00 12/23/24 14:01 Ipratropium 0.5 Mg/Albuterol Sulfate 2.5 Mg (Base) Ampul.Neb 3 Ml INHALATION 3 ml Q6HRT NIDIA Administration Atorvastatin Calcium 20 mg 12/23/24 18:00 Atorvastatin 20 Mg Tablet PO QPM NIDIA Bupropion HCl 200 mg 12/22/24 21:45 12/23/24 09:02 Bupropion Hcl Sr (12hr) 100 Mg Tabcr PO 200 mg Q12HR NIDIA Administration Docusate Sodium 100 mg 12/22/24 20:03 Docusate Sodium 100 Mg Capsule PO BID PRN Constipation Duloxetine HCl 60 mg 12/23/24 09:00 12/23/24 09:02 Duloxetine Hcl 60 Mg Capsule.Dr PO 60 mg DAILY NIDIA Administration Enoxaparin Sodium 40 mg 12/23/24 09:00 12/23/24 09:04 Enoxaparin 40 Mg/0.4 Ml Syringe SUB-Q 40 mg DAILY NIDIA Administration Furosemide 40 mg 12/23/24 09:00 12/23/24 09:04 Furosemide Inj 40 Mg/4 Ml Vial IV PUSH 40 mg DAILY NIDIA Administration Guaifenesin 1,200 mg 12/23/24 09:00 12/23/24 09:02 Guaifenesin 12 Hr 600 Mg Tabcr PO 1,200 mg Q12HR NIDIA Administration Ceftriaxone Sodium 1 gm/ 50 mls @ 100 mls/hr 12/23/24 18:00 Sodium Chloride IVPB Q24H NIDIA Azithromycin 500 mg/ Sodium 250 mls @ 250 mls/hr 12/23/24 19:00 Chloride IVPB 12/26/24 19:59 Q24H NIDIA Sodium Chloride 250 mls @ 30 mls/hr 12/23/24 07:01 Normal Saline Iv IV CONT 12/23/24 15:20 .Q8H20M STA Levothyroxine Sodium 150 mcg 12/23/24 06:30 12/23/24 06:24 Levothyroxine Sodium 150 Mcg Tablet PO Not Given DAILY@0630 [facility] Meloxicam 15 mg 12/23/24 08:00 12/23/24 09:02 Meloxicam 7.5 Mg Tablet PO 15 mg DAILY@0800 NIDIA Administration Metoprolol Tartrate 25 mg 12/23/24 09:00 12/23/24 09:02 Metoprolol Tartrate 25 Mg Tablet PO 25 mg DAILY NIDIA Administration Oxcarbazepine 300 mg 12/23/24 09:00 12/23/24 12:48 Oxcarbazepine 300 Mg Tablet PO 300 mg TID NIDIA Administration Pantoprazole Sodium 40 mg 12/23/24 09:00 12/23/24 09:03 Pantoprazole 40 Mg Tablet PO 40 mg BID NIDIA Administration Perflutren Lipid Microsphere 0 ml 12/22/24 20:03 Perflutren Lipid Microspheres 1.5 Ml Vial Diluted To 10 Ml Total Volume IV PUSH 12/25/24 20:05 ONCE PRN adequate visualization Protocol Prednisone 40 mg 12/23/24 08:00 12/23/24 09:02 Prednisone 20 Mg Tablet PO 12/28/24 07:59 40 mg DAILY@0800 NIDIA Administration Risperidone 1 mg 12/22/24 21:45 12/22/24 22:44 Risperidone 1 Mg Tablet PO Not Given HS [facility] Radiology Results: ITS Impressions Chest X-Ray 12/22/24 16:55 Impression: CHF. Superimposed probable pneumonia Labs Labs: Laboratory Results - last 24 hr 12/22/24 12/22/24 12/23/24 16:27 16:45 04:20 WBC 6.9 RBC 3.53 L Hgb 8.1 L Hct 28.7 L MCV 81.3 MCH 22.9 L MCHC 28.2 L RDW 17.8 H Plt Count 298 MPV 10.2 Immature Gran % (Auto) 0.7 H Neut % (Auto) 75.4 H Lymph % (Auto) 12.0 L Dawes % (Auto) 10.9 H Eos % (Auto) 0.7 Baso % (Auto) 0.3 Lymph # (Auto) 0.82 L Dawes # (Auto) 0.8 H Eos # (Auto) 0.1 Baso # (Auto) 0.0 Abs Immat Gran (auto) 0.05 H Absolute Neuts (auto) 5.2 Absolute Nucleated RBC 0.000 Band Neutrophils % 0 Nucleated RBC % 0.0 Platelet Estimate Adequate Hypochromasia 1+ Anisocytosis 2+ Microcytosis Ovalocytes Schistocytes None seen PT 13.9 INR 1.1 APTT 28.1 Puncture Site Right radial ABG pH 7.431 ABG pCO2 42.1 ABG pO2 88.8 ABG PO2/FiO2 Ratio 2.54 ABG HCO3 27.4 H ABG O2 Saturation 97.0 ABG O2 Content 12.0 L ABG Base Excess 2.8 A-a Gradient 111.8 Oxyhemoglobin 93.5 Carboxyhemoglobin 3.4 H Methemoglobin 0.3 Reduced Hemoglobin 2.8 Total Hemoglobin 9.0 L O2 Delivery Device Non-invasive vent O2 Liters/Min Not Reportable FiO2 35 Sodium 136 L 137 Potassium 4.2 3.6 Chloride 102 103 Carbon Dioxide 25 27 Anion Gap 9 7 BUN 25 H 28 H Creatinine 0.98 1.04 H Estim Creat Clear Calc 61 57 Estimated GFR 56 L 53 L Glucose 134 H 153 H Calcium 9.0 8.4 Iron < 10 L TIBC 263 % Saturation 4 L Ferritin 20.60 Total Bilirubin 0.4 AST 22 ALT 18 Alkaline Phosphatase 74 C-Reactive Protein 5.3 H NT-Pro-B Natriuret Pep 174 H Total Protein 7.1 Albumin 3.6 Vitamin B12 503.0 Folate 5.9 TSH (Reflex) 0.236 L Free T4 1.34 Total T3 0.54 L Influenza A (RT-PCR) Negative Influenza B (RT-PCR) Negative RSV (RT-PCR) Negative SARS-CoV-2 RNA (RT-PCR) Negative Blood Type Antibody Screen Crossmatch 12/23/24 12/23/24 12/23/24 06:42 07:55 11:02 WBC 8.0 RBC 2.99 L Hgb 6.9 L* 7.0 L Hct 24.5 L 24.9 L MCV 81.9 MCH 23.1 L MCHC 28.2 L RDW 18.0 H Plt Count 222 MPV 9.6 Immature Gran % (Auto) 0.6 H Neut % (Auto) 85.6 H Lymph % (Auto) 5.6 L Dawes % (Auto) 8.1 Eos % (Auto) 0.0 Baso % (Auto) 0.1 L Lymph # (Auto) 0.45 L Dawes # (Auto) 0.7 H Eos # (Auto) 0.0 Baso # (Auto) 0.0 Abs Immat Gran (auto) 0.05 H Absolute Neuts (auto) 6.8 H Absolute Nucleated RBC 0.000 Band Neutrophils % Not Reportable Nucleated RBC % 0.0 Platelet Estimate Adequate Hypochromasia 2+ Anisocytosis Microcytosis 1+ Ovalocytes 1+ Schistocytes None seen PT INR APTT Puncture Site ABG pH ABG pCO2 ABG pO2 ABG PO2/FiO2 Ratio ABG HCO3 ABG O2 Saturation ABG O2 Content ABG Base Excess A-a Gradient Oxyhemoglobin Carboxyhemoglobin Methemoglobin Reduced Hemoglobin Total Hemoglobin O2 Delivery Device O2 Liters/Min FiO2 Sodium Potassium Chloride Carbon Dioxide Anion Gap BUN Creatinine Estim Creat Clear Calc Estimated GFR Glucose Calcium Iron TIBC % Saturation Ferritin Total Bilirubin AST ALT Alkaline Phosphatase C-Reactive Protein NT-Pro-B Natriuret Pep Total Protein Albumin Vitamin B12 Folate TSH (Reflex) Free T4 Total T3 Influenza A (RT-PCR) Influenza B (RT-PCR) RSV (RT-PCR) SARS-CoV-2 RNA (RT-PCR) Blood Type A Positive Antibody Screen Negative Crossmatch See Detail
[2024-12-23] MEDS: cefTRIAXone 1 GM in SODIUM CHLORIDE 0.9% IV 50 ML 100 ML IVPB (16:53)
[2024-12-23] MEDS: ATORVASTATIN 20 MG TABLET PO (16:53)
[2024-12-23] MEDS: AZITHROMYCIN IV 500 MG in SODIUM CHLORIDE 0.9% IV 250 ML IVPB (18:14)
--- NOTE | 2024-12-23 20:05 | ECHO_ITS ---
Patient Info Name: Alisha Arguello Age: 69 years : 1955 Gender: Female Ht: 66 in Wt: 244 lbs BSA: 2.32 m2 HR: 59 bpm BP: 113 / 44 mmHg Technical Quality: Good Exam Date: 12/23/2024 9:57 AM Patient Status: I Admit Date: 12/23/2024 Exam Type: CA echo doppler color flow Complete two-dimensional, color flow and Doppler transthoracic echocardiogram is performed. Staff Referring Physician: William Cordova Head Inspector: Awilda Amezquita Attending Provider: Amado Atkins Summary 1. Complete two-dimensional, color flow and Doppler transthoracic echocardiogram is performed. 2. Borderline LV enlargement, mild LVH; normal LV systolic function, ejection fraction calculated at 64%. Stroke volume index is low at 31 cc/meter sq. Grade II diastolic dysfunction. Normal RV size and systolic function. Mild biatrial enlargement. Mild MAC, no significant MR. Aortic valve is not well visualized, appears calcified; mild aortic stenosis by Doppler, maximum velocity 2.2 m/sec, mean gradient 11 mmHg. Unable to assess RVSP due to inadequate TR jet. Dilated IVC without respiratory collapse. Aortic root calcifications noted. Epicardial fat, no significant pericardial effusion. Continued surveillance for progression of a valvular heart disease is recommended. Left Ventricular Outflow Tract Name Value Normal LVOT 2D LVOT Diameter 2.0 cm LVOT Doppler LVOT Peak Velocity 187 cm/s LVOT Peak Gradient 9 mmHg LVOT Mean Gradient 5 mmHg LVOT VTI 41 cm LVOT VTI/AV VTI Ratio 0.8 LVOT Stroke Volume 128 ml LVOT CO 6.2 l/min LVOT CI 2.7 l/min/m2 Pulmonic Valve Name Value Normal RVOT Doppler RVOT Peak Velocity 99 cm/s RVOT Peak Gradient 4 mmHg PV Doppler PV Peak Velocity 151 cm/s PV Peak Gradient 9 mmHg Mitral Valve Name Value Normal MV Diastolic Function MV E Peak Velocity 100 cm/s MV A Peak Velocity 87 cm/s MV E/A 1.1 MV Decel Time (PW) 264 ms MV Annular TDI MV E/e' (Septal) 14.0 MV E/e' (Lateral) 9.0 MV E/e' (Average) 11.5 Aortic Valve Name Value Normal AV Doppler AV Peak Velocity 231 cm/s AV Peak Gradient 18 mmHg AV Mean Gradient 11 mmHg AV VTI 49 cm AV Area (Cont Eq VTI) 2.6 cm2 >=3.0 AV Area (Cont Eq David) 2.6 cm2 AV DI (David) 0.81 AV Regurgitation 2D LVOT Area 3.2 cm2 Ventricles Name Value Normal LV Dimensions 2D/MM IVS Diastolic Thickness (2D) 1.2 cm 0.6-1.0 LVID Diastole (2D) 5.2 cm 3.8-5.2 LVIW Diastolic Thickness (2D) 0.9 cm 0.6-0.9 LVID Systole (2D) 3.2 cm 2.2-3.5 LVOT Diameter 2.0 cm LV Mass (2D Cubed) 209.08 g 67.00-162.00 LV Mass Index (2D Cubed) 90 g/m2 43-95 Relative Wall Thickness (2D) 0.36 <=0.42 LV Fractional Shortening/Ejection Fraction 2D/MM LV Fractional Shortening (2D) 39 % 27-45 LV EF (2D Teichholz) 69 % LV Diastolic Volume (4C MOD) 165 ml LV EF (4C MOD) 66 % LV Diastolic Volume (2C MOD) 125 ml LV EF (2C MOD) 60 % LV Diastolic Volume (BP MOD) 143 ml 46-106 LV Diastolic Volume Index (BP MOD) 62 ml/m2 29-61 LV Systolic Volume (BP MOD) 52 ml 14-42 LV Systolic Volume Index (BP MOD) 22 ml/m2 8-24 LV EF (BP MOD) 64 % 54-74 LV Diastolic Length (4C) 8.1 cm LV Systolic Length (4C) 7.2 cm LV Stroke Volume (4C MOD) 108 ml Atria Name Value Normal LA Dimensions LA Volume (4C A-L) 59 ml LA Volume (BP A-L) 67 ml RA Dimensions RA Systolic Major [place] Length (4C) 6.4 cm 2.2-2.8 RA Area (4C) 22.9 cm2 <=18.0 Report Signatures
[2024-12-23] MEDS: ACETAMINOPHEN 325 MG TABLET 650 MG PO (21:32)
[2024-12-24] VITALS (32 sets, daily range): BP systolic 105–134; BP diastolic 34–57; PULSE 48–77; RESP 16–33; TEMP 36.3–37.1; O2SAT 91–100
[2024-12-24] MEDS: IPRATROPIUM 0.5 MG/ALBUTEROL SULFATE 2.5 MG (BASE) AMPUL.NEB 3 ML INHALATION ×4 (02:37→20:51)
[2024-12-24 04:20] LABS: Hematocrit 23.5 % (37.0-47.0); Immature Granulocyte Percent A 0.4 % (0-0.5); Lymphocytes Absolute Auto 0.90 K/mm3 (0.9-3.2); Mean Corpuscular HGB Conc 27.7 g/dl (32-36); Mean Corpuscular Hemoglobin 22.9 pg (26-34); Mean Corpuscular Volume 82.7 fl (80-100); Nucleated Red Blood Cells Absolute Auto 0.000 K/mm3 (0.0-0.012); Nucleated Red Blood Cells Perc 0.0 % (0.0-0.2); Platelet Count Result 208 k/mm3 (150-375); Red Blood Count 2.84 M/mm3 (4.2-5.4); White Blood Count 7.2 K/mm3 (4.5-10.0)
[2024-12-24 04:39] LABS: Hemoglobin 6.5 g/dL (12.0-15.0)
[2024-12-24 04:42] LABS: Alanine Aminotransferase 19 U/L (6-35); Albumin Level 3.3 g/dL (3.5-5.1); Alkaline Phosphatase 63 U/L (38-126); Anion Gap 6 mmol/L (4-12); Aspartate Amino Transferase 21 U/L (14-36); Bilirubin,Total 0.2 mg/dL (0.2-1.3); Blood Urea Nitrogen 33 mg/dL (7-17); Calcium 8.3 mg/dL (8.4-10.2); Carbon Dioxide 30 mmol/L (22-30); Chloride 101 mmol/L (98-107); Estimated CRCL calculation 50 ml/min; Estimated Glomerular Filt Rate 45; Glucose 101 mg/dL (65-110); Magnesium 2.3 mg/dL (1.6-2.3); Potassium 3.3 mmol/L (3.4-5.0); Sodium 137 mmol/L (137-145); Total Protein 6.5 g/dL (6.3-8.2)
[2024-12-24 05:01] LABS: Anisocytosis 1+; Hypochromasia 2+
[2024-12-24 05:02] LABS: Ovalocytes 1+; Schistocytes None Seen
[2024-12-24] MEDS: LEVOTHYROXINE SODIUM 150 MCG TABLET PO (06:15)
[2024-12-24] MEDS: FUROSEMIDE INJ 40 MG/4 ML VIAL IV PUSH (06:55)
[2024-12-24] MEDS: MELOXICAM 7.5 MG TABLET 15 MG PO (08:43)
[2024-12-24] MEDS: METOPROLOL TARTRATE 25 MG TABLET PO (08:43)
[2024-12-24] MEDS: SODIUM CHLORIDE 0.9% IV 250 ML 30 ML IV CONT (08:43)
[2024-12-24] MEDS: PANTOPRAZOLE 40 MG TABLET PO ×2 (08:43→16:43)
[2024-12-24] MEDS: guaiFENesin 12 HR 600 MG TABCR 1200 MG PO ×2 (08:43→20:21)
[2024-12-24] MEDS: DULoxetine HCL 60 MG CAPSULE.DR PO (08:44)
[2024-12-24] MEDS: buPROPion HCL SR (12HR) 100 MG TABCR 200 MG PO ×2 (08:47→20:21)
[2024-12-24] MEDS: ACETAMINOPHEN 325 MG TABLET 650 MG PO ×2 (08:50→20:22)
[2024-12-24] MEDS: POTASSIUM CHLORIDE 20 MEQ ER TABLET 40 MEQ PO (09:27)
--- NOTE | 2024-12-24 12:44 | P.PNIM_ITS ---
Progress Note: A&P Assessment and Plan (1) Acute CHF: Code(s): I50.9 - Heart failure, unspecified Status: Acute Assessment and Plan: Cardiology consulted IV Lasix given in the ED IV Lasix daily Fluid restriction Daily weight Echo 12/23/2024 EF 64% grade 2 diastolic dysfunction mild aortic stenosis (2) Acute exacerbation of chronic obstructive airways disease: Code(s): J44.1 - Chronic obstructive pulmonary disease with (acute) exacerbation Status: Acute Assessment and Plan: Solu-Medrol followed by prednisone for 5 days total Guaifenesin DuoNebs (3) Pneumonia: Code(s): J18.9 - Pneumonia, unspecified organism Status: Acute Assessment and Plan: Rocephin and azithromycin Blood cultures pending Legionella pending (4) Hypertension: Code(s): I10 - Essential (primary) hypertension Status: Acute Assessment and Plan: Hold BP medications while aggressively diuresing (5) Hypothyroidism: Code(s): E03.9 - Hypothyroidism, unspecified Status: Acute Assessment and Plan: Continue levothyroxine (6) Anemia: Code(s): D64.9 - Anemia, unspecified Status: Acute Assessment and Plan: Anemia workup No signs of bleeding Hemoglobin down to be dilutional. Will continue to monitor Transfuse 1 unit PRBC 12/24/2024 Will give IV iron (7) Bipolar 1 disorder: Code(s): F31.9 - Bipolar disorder, unspecified Status: Acute Assessment and Plan: Continue Wellbutrin, Cymbalta, trileptal and risperidone Subjective Date/time seen: 12/24/24 12:44 Interval history: No overnight events. Feels better. On 2 L oxygen. Leg swelling has improved. Review of Systems Review of Systems: All systems reviewed & are unremarkable except as noted in HPI and below Exam Narrative: General: Alert and oriented x3 no acute distress HEENT: normocephalic, atraumatic. Mucous membranes moist. Respiratory: Diminished breath sounds bilaterally no wheezes Cardiovascular: Regular rate and rhythm, normal S1-S2 upon ascultation. Abdomen: Soft, round, no pulsatile masses, nondistended and nontender. No rebound, no guarding. Extremities: No cyanosis, clubbing, . Pulses are palpable 2/2. Bilateral lower extremity edema pitting which has improved Neuro: Alert and orientated x 4. PERRLA. Cranial nerves 2-12 intact without focal deficit. Skin: Warm, dry, and intact, without rash, erythema, or lesion. Psych: pleasant, cooperative, normal speech, normal affect, no hallucinations, no dysarthia Objective Data Vital Signs Vital Signs: Vital Signs - 24 hr 12/23/24 13:51 12/23/24 14:01 12/23/24 14:03 Temperature Pulse Rate 60 64 63 Respiratory Rate 20 Blood Pressure Pulse Oximetry 96 Oxygen Delivery Nasal Cannula Oxygen Flow Rate 2 Fraction of Inspired Oxygen 12/23/24 14:10 12/23/24 15:04 12/23/24 16:00 Temperature Pulse Rate 63 58 L Respiratory Rate 20 Blood Pressure Pulse Oximetry 96 Oxygen Delivery Nasal Cannula Oxygen Flow Rate 2 Fraction of Inspired Oxygen 12/23/24 16:00 12/23/24 18:00 12/23/24 19:47 Temperature 98.3 F 97.3 F L Pulse Rate 59 L 63 63 Respiratory Rate 24 H 18 Blood Pressure 109/57 L 126/97 H Pulse Oximetry 97 98 Oxygen Delivery Oxygen Flow Rate Fraction of Inspired Oxygen 12/23/24 20:00 12/23/24 20:44 12/23/24 20:46 Temperature Pulse Rate 63 67 Respiratory Rate 17 Blood Pressure Pulse Oximetry 95 Oxygen Delivery Nasal Cannula Oxygen Flow Rate 2 Fraction of Inspired Oxygen 12/23/24 20:50 12/23/24 21:16 12/23/24 22:00 Temperature Pulse Rate 67 63 62 Respiratory Rate 17 18 Blood Pressure Pulse Oximetry 98 Oxygen Delivery Nasal Cannula Oxygen Flow Rate 2 Fraction of Inspired Oxygen 12/24/24 00:00 12/24/24 00:00 12/24/24 00:27 Temperature 97.3 F L Pulse Rate 57 L 57 L 77 Respiratory Rate 21 H 33 H Blood Pressure 123/51 L Pulse Oximetry 99 100 Oxygen Delivery BiPAP Oxygen Flow Rate Fraction of Inspired Oxygen 12/24/24 00:32 12/24/24 02:00 12/24/24 02:37 Temperature Pulse Rate 77 63 67 Respiratory Rate 19 29 H Blood Pressure Pulse Oximetry 100 Oxygen Delivery BiPAP Oxygen Flow Rate Fraction of Inspired Oxygen 35 12/24/24 02:49 12/24/24 03:48 12/24/24 04:00 Temperature 98 F Pulse Rate 68 67 70 Respiratory Rate 29 H 29 H 24 H Blood Pressure 134/54 L Pulse Oximetry 100 100 Oxygen Delivery BiPAP Oxygen Flow Rate Fraction of Inspired Oxygen 12/24/24 04:00 12/24/24 04:00 12/24/24 06:00 Temperature Pulse Rate 70 70 67 Respiratory Rate 24 H Blood Pressure Pulse Oximetry 100 Oxygen Delivery BiPAP Oxygen Flow Rate Fraction of Inspired Oxygen 35 12/24/24 07:00 12/24/24 07:20 12/24/24 07:39 Temperature 98.7 F 98.8 F Pulse Rate 68 67 63 Respiratory Rate 20 20 21 H Blood Pressure 108/45 L 105/34 L Pulse Oximetry 91 95 Oxygen Delivery Oxygen Flow Rate Fraction of Inspired Oxygen 12/24/24 07:44 12/24/24 07:46 12/24/24 08:00 Temperature Pulse Rate 63 67 Respiratory Rate 21 H Blood Pressure Pulse Oximetry 96 95 Oxygen Delivery Nasal Cannula Nasal Cannula Oxygen Flow Rate 2 2 Fraction of Inspired Oxygen 12/24/24 08:00 12/24/24 08:20 12/24/24 08:20 Temperature 98.7 F 98.7 F Pulse Rate 69 66 66 Respiratory Rate 20 20 Blood Pressure 119/44 L 119/44 L Pulse Oximetry 96 96 Oxygen Delivery Oxygen Flow Rate Fraction of Inspired Oxygen 12/24/24 08:43 12/24/24 09:20 12/24/24 09:20 Temperature 98.8 F 98.8 F Pulse Rate 69 67 67 Respiratory Rate 22 H 22 H Blood Pressure 124/55 L 124/55 L Pulse Oximetry 100 100 Oxygen Delivery Oxygen Flow Rate Fraction of Inspired Oxygen 12/24/24 10:00 12/24/24 10:20 12/24/24 10:20 Temperature 97.8 F 97.8 F Pulse Rate 67 63 63 Respiratory Rate 20 20 Blood Pressure 121/56 L 121/56 L Pulse Oximetry 100 97 Oxygen Delivery Oxygen Flow Rate Fraction of Inspired Oxygen 12/24/24 11:00 12/24/24 12:00 12/24/24 12:00 Temperature 98.7 F 98.8 F Pulse Rate 60 58 L 59 L Respiratory Rate 22 H 18 Blood Pressure 121/56 L 128/57 L Pulse Oximetry 97 96 Oxygen Delivery Oxygen Flow Rate Fraction of Inspired Oxygen Intake/Output Intake/Output: Intake & Output 12/21/24 12/22/24 12/23/24 12/24/24 23:59 23:59 23:59 23:59 Intake Total 320 512 7115 Output Total 0 700 1450 Balance 300 -60 -450 Meds/Results Medications: Active Medications Generic Name Dose Route Start Last Admin Trade Name Freq PRN Reason Stop Dose Admin Acetaminophen 650 mg 12/22/24 17:09 12/23/24 01:23 Acetaminophen 650 Mg Suppository RECTAL 650 mg Q6H PRN Administration Mild Pain (1-3) or Fever Acetaminophen 650 mg 12/22/24 20:03 12/24/24 08:50 Acetaminophen 325 Mg Tablet PO 650 mg Q4H PRN Administration Mild Pain (1-3) or Fever Albuterol/Ipratropium 3 ml 12/23/24 02:00 12/24/24 07:39 Ipratropium 0.5 Mg/Albuterol Sulfate 2.5 Mg (Base) Ampul.Neb 3 Ml INHALATION 3 ml Q6HRT NIDIA Administration Atorvastatin Calcium 20 mg 12/23/24 18:00 12/23/24 16:53 Atorvastatin 20 Mg Tablet PO 20 mg QPM NIDIA Administration Bupropion HCl 200 mg 12/22/24 21:45 12/24/24 08:47 Bupropion Hcl Sr (12hr) 100 Mg Tabcr PO 200 mg Q12HR NIDIA Administration Docusate Sodium 100 mg 12/22/24 20:03 Docusate Sodium 100 Mg Capsule PO BID PRN Constipation Duloxetine HCl 60 mg 12/23/24 09:00 12/24/24 08:44 Duloxetine Hcl 60 Mg Capsule.Dr PO 60 mg DAILY NIDIA Administration Enoxaparin Sodium 40 mg 12/23/24 09:00 12/24/24 08:50 Enoxaparin 40 Mg/0.4 Ml Syringe SUB-Q Not Given DAILY NIDIA Furosemide 40 mg 12/23/24 09:00 12/24/24 08:44 Furosemide Inj 40 Mg/4 Ml Vial IV PUSH Not Given DAILY NIDIA Guaifenesin 1,200 mg 12/23/24 09:00 12/24/24 08:43 Guaifenesin 12 Hr 600 Mg Tabcr PO 1,200 mg Q12HR NIDIA Administration Ceftriaxone Sodium 1 gm/ 50 mls @ 100 mls/hr 12/23/24 18:00 12/23/24 19:17 Sodium Chloride IVPB Infused Q24H NIDIA Infusion Azithromycin 500 mg/ Sodium 250 mls @ 250 mls/hr 12/23/24 19:00 12/23/24 19:17 Chloride IVPB 12/26/24 19:59 Infused Q24H NIDIA Infusion Sodium Chloride 250 mls @ 30 mls/hr 12/24/24 06:02 12/24/24 08:43 Normal Saline Iv IV CONT 12/24/24 14:21 30 mls/hr .Q8H20M STA Administration Levothyroxine Sodium 150 mcg 12/23/24 06:30 12/24/24 06:15 Levothyroxine Sodium 150 Mcg Tablet PO 150 mcg DAILY@0630 NIDIA Administration Meloxicam 15 mg 12/23/24 08:00 12/24/24 08:43 Meloxicam 7.5 Mg Tablet PO 15 mg DAILY@0800 NIDIA Administration Metoprolol Tartrate 25 mg 12/23/24 09:00 12/24/24 08:43 Metoprolol Tartrate 25 Mg Tablet PO 25 mg DAILY NIDIA Administration Oxcarbazepine 300 mg 12/23/24 09:00 12/24/24 08:44 Oxcarbazepine 300 Mg Tablet PO 300 mg TID NIDIA Administration Pantoprazole Sodium 40 mg 12/23/24 09:00 12/24/24 08:43 Pantoprazole 40 Mg Tablet PO 40 mg BID NIDIA Administration Perflutren Lipid Microsphere 0 ml 12/22/24 20:03 Perflutren Lipid Microspheres 1.5 Ml Vial Diluted To 10 Ml Total Volume IV PUSH 12/25/24 20:05 ONCE PRN adequate visualization Protocol Prednisone 40 mg 12/23/24 08:00 12/24/24 08:43 Prednisone 20 Mg Tablet PO 12/28/24 07:59 40 mg DAILY@0800 NIDIA Administration Risperidone 1 mg 12/22/24 21:45 12/23/24 21:29 Risperidone 1 Mg Tablet PO 1 mg HS NIDIA Administration Radiology Results: ITS Impressions Chest X-Ray 12/22/24 16:55 Impression: CHF. Superimposed probable pneumonia Labs Labs: Laboratory Results - last 24 hr 12/23/24 12/24/24 07:55 03:54 WBC 7.2 RBC 2.84 L Hgb 6.5 L* Hct 23.5 L MCV 82.7 MCH 22.9 L MCHC 27.7 L RDW 18.0 H Plt Count 208 MPV 10.0 Immature Gran % (Auto) 0.4 Neut % (Auto) 67.2 Lymph % (Auto) 12.5 L [place] % (Auto) 19.4 H Eos % (Auto) 0.4 Baso % (Auto) 0.1 L Lymph # (Auto) 0.90 [place] # (Auto) 1.4 H Eos # (Auto) 0.0 Baso # (Auto) 0.0 Abs Immat Gran (auto) 0.03 Absolute Neuts (auto) 4.8 Absolute Nucleated RBC 0.000 Band Neutrophils % Not Reportable Nucleated RBC % 0.0 Platelet Estimate Adequate Hypochromasia 2+ Anisocytosis 1+ Ovalocytes 1+ Schistocytes None seen Sodium 137 Potassium 3.3 L Chloride 101 Carbon Dioxide 30 Anion Gap 6 BUN 33 H Creatinine 1.19 H Estim Creat Clear Calc 50 Estimated GFR 45 L Glucose 101 Calcium 8.3 L Magnesium 2.3 Total Bilirubin 0.2 AST 21 ALT 19 Alkaline Phosphatase 63 Total Protein 6.5 Albumin 3.3 L Blood Type A Positive Antibody Screen Negative Crossmatch See Detail
[2024-12-24] MEDS: FUROSEMIDE INJ 40 MG/4 ML VIAL 20 MG IV PUSH (13:19)
[2024-12-24] MEDS: IRON SUCROSE COMPLEX 200 MG, IRON SUCROSE COMPLEX 100 MG in SODIUM CHLORIDE 0.9% IV 250 ML 176.67 MG IVPB (14:26)
[2024-12-24] MEDS: ATORVASTATIN 20 MG TABLET PO (16:43)
[2024-12-24] MEDS: cefTRIAXone 1 GM in SODIUM CHLORIDE 0.9% IV 50 ML 100 ML IVPB (17:18)
[2024-12-24] MEDS: AZITHROMYCIN IV 500 MG in SODIUM CHLORIDE 0.9% IV 250 ML IVPB (18:05)
[2024-12-25] VITALS (20 sets, daily range): BP systolic 109–167; BP diastolic 52–68; PULSE 47–63; RESP 10–20; TEMP 36.4–36.8; O2SAT 93–100
[2024-12-25] MEDS: IPRATROPIUM 0.5 MG/ALBUTEROL SULFATE 2.5 MG (BASE) AMPUL.NEB 3 ML INHALATION ×4 (02:33→21:12)
[2024-12-25 04:25] LABS: Hematocrit 25.4 % (37.0-47.0); Hemoglobin 7.2 g/dL (12.0-15.0); Immature Granulocyte Percent A 0.5 % (0-0.5); Lymphocytes Absolute Auto 1.28 K/mm3 (0.9-3.2); Mean Corpuscular HGB Conc 28.3 g/dl (32-36); Mean Corpuscular Hemoglobin 23.4 pg (26-34); Mean Corpuscular Volume 82.5 fl (80-100); Nucleated Red Blood Cells Absolute Auto 0.000 K/mm3 (0.0-0.012); Nucleated Red Blood Cells Perc 0.0 % (0.0-0.2); Platelet Count Result 202 k/mm3 (150-375); Red Blood Count 3.08 M/mm3 (4.2-5.4); White Blood Count 6.4 K/mm3 (4.5-10.0)
[2024-12-25 04:47] LABS: Alanine Aminotransferase 21 U/L (6-35); Albumin Level 3.0 g/dL (3.5-5.1); Alkaline Phosphatase 66 U/L (38-126); Anion Gap 4 mmol/L (4-12); Aspartate Amino Transferase 25 U/L (14-36); Bilirubin,Total 0.3 mg/dL (0.2-1.3); Blood Urea Nitrogen 31 mg/dL (7-17); Calcium 8.3 mg/dL (8.4-10.2); Carbon Dioxide 31 mmol/L (22-30); Chloride 104 mmol/L (98-107); Estimated CRCL calculation 62 ml/min; Estimated Glomerular Filt Rate 58; Glucose 92 mg/dL (65-110); Magnesium 2.3 mg/dL (1.6-2.3); Potassium 3.1 mmol/L (3.4-5.0); Sodium 139 mmol/L (137-145); Total Protein 6.3 g/dL (6.3-8.2)
[2024-12-25 04:56] LABS: Anisocytosis 1+; Hypochromasia 2+; Schistocytes None Seen
[2024-12-25] MEDS: ACETAMINOPHEN 325 MG TABLET 650 MG PO ×2 (05:25→15:29)
[2024-12-25] MEDS: LEVOTHYROXINE SODIUM 150 MCG TABLET PO (05:48)
[2024-12-25] MEDS: buPROPion HCL SR (12HR) 100 MG TABCR 200 MG PO ×2 (08:21→21:05)
[2024-12-25] MEDS: FUROSEMIDE INJ 40 MG/4 ML VIAL IV PUSH (08:21)
[2024-12-25] MEDS: MELOXICAM 7.5 MG TABLET 15 MG PO (08:21)
[2024-12-25] MEDS: ENOXAPARIN 40 MG/0.4 ML SYRINGE SUB-Q (08:21)
[2024-12-25] MEDS: DULoxetine HCL 60 MG CAPSULE.DR PO (08:22)
[2024-12-25] MEDS: METOPROLOL TARTRATE 25 MG TABLET PO (08:22)
[2024-12-25] MEDS: PANTOPRAZOLE 40 MG TABLET PO ×2 (08:22→17:17)
[2024-12-25] MEDS: guaiFENesin 12 HR 600 MG TABCR 1200 MG PO ×2 (08:22→21:05)
[2024-12-25] MEDS: POTASSIUM CHLORIDE 20 MEQ ER TABLET 40 MEQ PO (09:13)
--- NOTE | 2024-12-25 10:12 | PCOTNOTE ---
Attempted OT evaluation. Per patient report she is Rosey lift at baseline. Patient declines occupational therapy evaluation at this time.
--- NOTE | 2024-12-25 11:06 | PCPTNOTE ---
Pt is dependent at baseline using jair lift to wheelchair and dependent with ADLs. Notified Hospitalist. Therapy orders discontinued at this time.
--- NOTE | 2024-12-25 12:39 | P.PNIM_ITS ---
Progress Note: A&P Assessment and Plan (1) Acute CHF: Code(s): I50.9 - Heart failure, unspecified Status: Acute Assessment and Plan: Cardiology consulted IV Lasix given in the ED IV Lasix daily Fluid restriction Daily weight Echo 12/23/2024 EF 64% grade 2 diastolic dysfunction mild aortic stenosis (2) Acute exacerbation of chronic obstructive airways disease: Code(s): J44.1 - Chronic obstructive pulmonary disease with (acute) exacerbation Status: Acute Assessment and Plan: Solu-Medrol followed by prednisone for 5 days total Guaifenesin DuoNebs (3) Pneumonia: Code(s): J18.9 - Pneumonia, unspecified organism Status: Acute Assessment and Plan: Rocephin and azithromycin Blood cultures pending Legionella pending Switched to oral (4) Hypertension: Code(s): I10 - Essential (primary) hypertension Status: Acute Assessment and Plan: Hold BP medications while aggressively diuresing (5) Hypothyroidism: Code(s): E03.9 - Hypothyroidism, unspecified Status: Acute Assessment and Plan: Continue levothyroxine (6) Anemia: Code(s): D64.9 - Anemia, unspecified Status: Acute Assessment and Plan: Anemia workup No signs of bleeding Hemoglobin down to be dilutional. Will continue to monitor Transfuse 1 unit PRBC 12/24/2024 Received IV iron 12/24/2024 (7) Bipolar 1 disorder: Code(s): F31.9 - Bipolar disorder, unspecified Status: Acute Assessment and Plan: Continue Wellbutrin, Cymbalta, trileptal and risperidone Subjective Date/time seen: 12/25/24 12:39 Interval history: No overnight events. Feels better. Swelling is improving. Labs reviewed. No chest pain. Nonambulatory at baseline. alf resident. Review of Systems Review of Systems: All systems reviewed & are unremarkable except as noted in HPI and below Exam Narrative: General: Alert and oriented x3 no acute distress HEENT: normocephalic, atraumatic. Mucous membranes moist. Respiratory: Diminished breath sounds bilaterally no wheezes Cardiovascular: Regular rate and rhythm, normal S1-S2 upon ascultation. Abdomen: Soft, round, no pulsatile masses, nondistended and nontender. No rebound, no guarding. Extremities: No cyanosis, clubbing, . Pulses are palpable 2/2. Bilateral lower extremity edema pitting which has improved Neuro: Alert and orientated x 4. PERRLA. Cranial nerves 2-12 intact without focal deficit. Skin: Warm, dry, and intact, without rash, erythema, or lesion. Psych: pleasant, cooperative, normal speech, normal affect, no hallucinations, no dysarthia Objective Data Vital Signs Vital Signs: Vital Signs - 24 hr 12/24/24 13:20 12/24/24 13:27 12/24/24 15:42 Temperature 98.1 F Pulse Rate 59 L 57 L 56 L Respiratory Rate 18 18 16 Blood Pressure 106/49 L Pulse Oximetry 97 Oxygen Delivery Oxygen Flow Rate 12/24/24 16:00 12/24/24 20:00 12/24/24 20:00 Temperature Pulse Rate 49 L 50 L 51 L Respiratory Rate Blood Pressure Pulse Oximetry 95 Oxygen Delivery BiPAP Oxygen Flow Rate 12/24/24 20:24 12/24/24 20:52 12/24/24 20:53 Temperature 98.0 F Pulse Rate 52 L 53 L 53 L Respiratory Rate 20 18 Blood Pressure 123/54 L Pulse Oximetry 94 94 Oxygen Delivery Nasal Cannula Oxygen Flow Rate 2 12/24/24 20:58 12/24/24 21:00 12/25/24 00:00 Temperature Pulse Rate 48 L 48 L 47 L Respiratory Rate 18 18 Blood Pressure Pulse Oximetry 97 Oxygen Delivery BiPAP Oxygen Flow Rate 12/25/24 00:31 12/25/24 02:33 12/25/24 02:36 Temperature 98.3 F Pulse Rate 47 L 52 L 52 L Respiratory Rate 16 19 19 Blood Pressure 109/56 L Pulse Oximetry 98 100 Oxygen Delivery BiPAP Oxygen Flow Rate 12/25/24 02:40 12/25/24 07:00 12/25/24 08:00 Temperature 98.2 F Pulse Rate 53 L 53 L Respiratory Rate 20 18 Blood Pressure 137/52 L Pulse Oximetry 96 95 Oxygen Delivery Nasal Cannula Oxygen Flow Rate 1 12/25/24 08:00 12/25/24 08:15 12/25/24 08:22 Temperature Pulse Rate 58 L 55 L 61 Respiratory Rate 20 Blood Pressure Pulse Oximetry 98 Oxygen Delivery Room Air Oxygen Flow Rate 12/25/24 08:30 12/25/24 08:40 12/25/24 10:27 Temperature Pulse Rate 56 L 53 L Respiratory Rate 20 20 Blood Pressure Pulse Oximetry 93 Oxygen Delivery Room Air Oxygen Flow Rate 12/25/24 12:00 Temperature Pulse Rate 61 Respiratory Rate Blood Pressure Pulse Oximetry Oxygen Delivery Oxygen Flow Rate Intake/Output Intake/Output: Intake & Output 12/22/24 12/23/24 12/24/24 12/25/24 23:59 23:59 23:59 23:59 Intake Total 463 253 4043 790 Output Total 0 700 1450 500 Balance 300 -60 750 290 Meds/Results Medications: Active Medications Generic Name Dose Route Start Last Admin Trade Name Freq PRN Reason Stop Dose Admin Acetaminophen 650 mg 12/22/24 17:09 12/23/24 01:23 Acetaminophen 650 Mg Suppository RECTAL 650 mg Q6H PRN Administration Mild Pain (1-3) or Fever Acetaminophen 650 mg 12/22/24 20:03 12/25/24 05:25 Acetaminophen 325 Mg Tablet PO 650 mg Q4H PRN Administration Mild Pain (1-3) or Fever Albuterol/Ipratropium 3 ml 12/23/24 02:00 12/25/24 08:30 Ipratropium 0.5 Mg/Albuterol Sulfate 2.5 Mg (Base) Ampul.Neb 3 Ml INHALATION 3 ml Q6HRT NIDIA Administration Atorvastatin Calcium 20 mg 12/23/24 18:00 12/24/24 16:43 Atorvastatin 20 Mg Tablet PO 20 mg QPM NIDIA Administration Bupropion HCl 200 mg 12/22/24 21:45 12/25/24 08:21 Bupropion Hcl Sr (12hr) 100 Mg Tabcr PO 200 mg Q12HR NIDIA Administration Docusate Sodium 100 mg 12/22/24 20:03 Docusate Sodium 100 Mg Capsule PO BID PRN Constipation Duloxetine HCl 60 mg 12/23/24 09:00 12/25/24 08:22 Duloxetine Hcl 60 Mg Capsule.Dr PO 60 mg DAILY NIDIA Administration Enoxaparin Sodium 40 mg 12/23/24 09:00 12/25/24 08:21 Enoxaparin 40 Mg/0.4 Ml Syringe SUB-Q 40 mg DAILY NIDIA Administration Furosemide 40 mg 12/23/24 09:00 12/25/24 08:21 Furosemide Inj 40 Mg/4 Ml Vial IV PUSH 40 mg DAILY NIDIA Administration Guaifenesin 1,200 mg 12/23/24 09:00 12/25/24 08:22 Guaifenesin 12 Hr 600 Mg Tabcr PO 1,200 mg Q12HR NIDIA Administration Ceftriaxone Sodium 1 gm/ 50 mls @ 100 mls/hr 12/23/24 18:00 12/24/24 17:48 Sodium Chloride IVPB Infused Q24H NIDIA Infusion Azithromycin 500 mg/ Sodium 250 mls @ 250 mls/hr 12/23/24 19:00 12/24/24 19:05 Chloride IVPB 12/26/24 19:59 Infused Q24H NIDIA Infusion Levothyroxine Sodium 150 mcg 12/23/24 06:30 12/25/24 05:48 Levothyroxine Sodium 150 Mcg Tablet PO 150 mcg DAILY@0630 NIDIA Administration Meloxicam 15 mg 12/23/24 08:00 12/25/24 08:21 Meloxicam 7.5 Mg Tablet PO 15 mg DAILY@0800 NIDIA Administration Metoprolol Tartrate 25 mg 12/23/24 09:00 12/25/24 08:22 Metoprolol Tartrate 25 Mg Tablet PO 25 mg DAILY NIDIA Administration Oxcarbazepine 300 mg 12/23/24 09:00 12/25/24 12:23 Oxcarbazepine 300 Mg Tablet PO 300 mg TID NIDIA Administration Pantoprazole Sodium 40 mg 12/23/24 09:00 12/25/24 08:22 Pantoprazole 40 Mg Tablet PO 40 mg BID NIDIA Administration Perflutren Lipid Microsphere 0 ml 12/22/24 20:03 Perflutren Lipid Microspheres 1.5 Ml Vial Diluted To 10 Ml Total Volume IV PUSH 12/25/24 20:05 ONCE PRN adequate visualization Protocol Prednisone 40 mg 12/23/24 08:00 12/25/24 08:21 Prednisone 20 Mg Tablet PO 12/28/24 07:59 40 mg DAILY@0800 NIDIA Administration Risperidone 1 mg 12/22/24 21:45 12/24/24 20:21 Risperidone 1 Mg Tablet PO 1 mg HS NIDIA Administration Radiology Results: ITS Impressions Chest X-Ray 12/22/24 16:55 Impression: CHF. Superimposed probable pneumonia Labs Labs: Laboratory Results - last 24 hr 12/23/24 12/25/24 07:55 04:02 WBC 6.4 RBC 3.08 L Hgb 7.2 L Hct 25.4 L MCV 82.5 MCH 23.4 L MCHC 28.3 L RDW 17.6 H Plt Count 202 MPV 10.3 Immature Gran % (Auto) 0.5 Neut % (Auto) 59.0 Lymph % (Auto) 20.1 Josephine % (Auto) 19.3 H Eos % (Auto) 0.8 Baso % (Auto) 0.3 Lymph # (Auto) 1.28 Josephine # (Auto) 1.2 H Eos # (Auto) 0.1 Baso # (Auto) 0.0 Abs Immat Gran (auto) 0.03 Absolute Neuts (auto) 3.8 Absolute Nucleated RBC 0.000 Band Neutrophils % Not Reportable Nucleated RBC % 0.0 Platelet Estimate Adequate Hypochromasia 2+ Anisocytosis 1+ Schistocytes None seen Sodium 139 Potassium 3.1 L Chloride 104 Carbon Dioxide 31 H Anion Gap 4 BUN 31 H Creatinine 0.95 Estim Creat Clear Calc 62 Estimated GFR 58 L Glucose 92 Calcium 8.3 L Magnesium 2.3 Total Bilirubin 0.3 AST 25 ALT 21 Alkaline Phosphatase 66 Total Protein 6.3 Albumin 3.0 L Crossmatch See Detail
[2024-12-25] MEDS: ATORVASTATIN 20 MG TABLET PO (17:17)
[2024-12-25] MEDS: AZITHROMYCIN 500 MG TABLET PO (17:17)
[2024-12-25] MEDS: CEFDINIR 300 MG CAPSULE PO (21:05)
--- NOTE | 2024-12-25 21:14 | ADMGEN ---
This patient, Alisha Arguello, was transferred to [facility] Surg Room 331-02. Patient/family oriented to hospital policies and general routines including ID bracelet, bed and alarms, visiting hours, pain management, procedures, bathroom and other care routines, personal items, smoking policy, room service/diet, and visiting hours. Information on how to activate the Rapid Response Team has been discussed. Patient/Family are encouraged to report perceived risks to care and to ask questions if they do not understand what they are told or what they should do.
[2024-12-26] VITALS (8 sets, daily range): BP systolic 126–138; BP diastolic 58–60; PULSE 60–70; RESP 14–20; TEMP 36.4–36.8; O2SAT 91–94
[2024-12-26] MEDS: IPRATROPIUM 0.5 MG/ALBUTEROL SULFATE 2.5 MG (BASE) AMPUL.NEB 3 ML INHALATION ×3 (01:37→13:46)
[2024-12-26] MEDS: LEVOTHYROXINE SODIUM 150 MCG TABLET PO (05:33)
[2024-12-26] MEDS: MELOXICAM 7.5 MG TABLET 15 MG PO (08:13)
[2024-12-26] MEDS: AZITHROMYCIN 500 MG TABLET PO (08:13)
[2024-12-26] MEDS: buPROPion HCL SR (12HR) 100 MG TABCR 200 MG PO (08:14)
[2024-12-26] MEDS: DULoxetine HCL 60 MG CAPSULE.DR PO (08:14)
[2024-12-26] MEDS: CEFDINIR 300 MG CAPSULE PO (08:14)
[2024-12-26] MEDS: FUROSEMIDE INJ 40 MG/4 ML VIAL IV PUSH (08:14)
[2024-12-26] MEDS: PANTOPRAZOLE 40 MG TABLET PO (08:14)
[2024-12-26] MEDS: guaiFENesin 12 HR 600 MG TABCR 1200 MG PO (08:14)
[2024-12-26] MEDS: METOPROLOL TARTRATE 25 MG TABLET PO (08:15)
[2024-12-26] MEDS: ENOXAPARIN 40 MG/0.4 ML SYRINGE SUB-Q (08:19)
[2024-12-26 09:03] LABS: Hematocrit 27.3 % (37.0-47.0); Hemoglobin 7.9 g/dL (12.0-15.0); Immature Granulocyte Percent A 0.4 % (0-0.5); Lymphocytes Absolute Auto 0.99 K/mm3 (0.9-3.2); Mean Corpuscular HGB Conc 28.9 g/dl (32-36); Mean Corpuscular Hemoglobin 23.7 pg (26-34); Mean Corpuscular Volume 82.0 fl (80-100); Nucleated Red Blood Cells Absolute Auto 0.000 K/mm3 (0.0-0.012); Nucleated Red Blood Cells Perc 0.0 % (0.0-0.2); Platelet Count Result 197 k/mm3 (150-375); Red Blood Count 3.33 M/mm3 (4.2-5.4); White Blood Count 4.5 K/mm3 (4.5-10.0)
[2024-12-26 09:24] LABS: Alanine Aminotransferase 25 U/L (6-35); Albumin Level 3.2 g/dL (3.5-5.1); Alkaline Phosphatase 65 U/L (38-126); Anion Gap 7 mmol/L (4-12); Aspartate Amino Transferase 25 U/L (14-36); Bilirubin,Total 0.2 mg/dL (0.2-1.3); Blood Urea Nitrogen 20 mg/dL (7-17); Calcium 8.6 mg/dL (8.4-10.2); Carbon Dioxide 28 mmol/L (22-30); Chloride 104 mmol/L (98-107); Estimated CRCL calculation 81 ml/min; Estimated Glomerular Filt Rate > 60; Glucose 128 mg/dL (65-110); Magnesium 2.0 mg/dL (1.6-2.3); Potassium 3.3 mmol/L (3.4-5.0); Sodium 139 mmol/L (137-145); Total Protein 6.5 g/dL (6.3-8.2)
[2024-12-26 09:32] LABS: Anisocytosis 1+; Hypochromasia 1+; Schistocytes None Seen
--- NOTE | 2024-12-26 12:41 | P.DS_ITS ---
DS: Admitting Diagnosis Discharge Date 12/26/2024 Admitting Diagnosis Shortness of breath DS: Discharge Diagnosis Discharge Diagnosis (1) Acute CHF: Code(s): I50.9 - Heart failure, unspecified Status: Acute (2) Acute exacerbation of chronic obstructive airways disease: Code(s): J44.1 - Chronic obstructive pulmonary disease with (acute) exacerbation Status: Acute (3) Pneumonia: Code(s): J18.9 - Pneumonia, unspecified organism Status: Acute (4) Hypertension: Code(s): I10 - Essential (primary) hypertension Status: Acute (5) Hypothyroidism: Code(s): E03.9 - Hypothyroidism, unspecified Status: Acute (6) Anemia: Code(s): D64.9 - Anemia, unspecified Status: Acute (7) Bipolar 1 disorder: Code(s): F31.9 - Bipolar disorder, unspecified Status: Acute DS: Summary Hospital Course Hospital Course: # Acute CHF: Cardiology consulted IV Lasix given in the ED IV Lasix daily to be switched to oral Fluid restriction to continue Daily weight Echo 12/23/2024 EF 64% grade 2 diastolic dysfunction mild aortic stenosis Switched to oral Lasix 60 mg daily at discharge. With potassium supplement # Acute exacerbation of chronic obstructive airways disease: Solu-Medrol followed by prednisone for 5 days total and will be switched back to prednisone 5 mg her usual home dose Guaifenesin DuoNebs # Pneumonia: Rocephin and azithromycin Blood cultures pending Legionella pending Switched to oral min finished antibiotics in the intermediate # Hypertension: Hold BP medications while aggressively diuresing # Hypothyroidism: Continue levothyroxine # Anemia:: Anemia workup No signs of bleeding Hemoglobin down to be dilutional. Will continue to monitor Transfuse 1 unit PRBC 12/24/2024 Received IV iron 12/24/2024 and repeated 12/26/2024 H&H remained stable # Bipolar 1 disorder: Continue Wellbutrin, Cymbalta, trileptal and risperidone # Acute hypoxic respiratory failure needing BiPAP initially which has been tapered off. Off oxygen by the time of discharge. Time Spent with Patient Time attestation: Total time spent providing and/or coordinating discharge services: 40 minutes Exam Narrative: General: Alert and oriented x3 no acute distress HEENT: normocephalic, atraumatic. Mucous membranes moist. Respiratory: Diminished breath sounds bilaterally no wheezes Cardiovascular: Regular rate and rhythm, normal S1-S2 upon ascultation. Abdomen: Soft, round, no pulsatile masses, nondistended and nontender. No rebound, no guarding. Extremities: No cyanosis, clubbing, . Pulses are palpable 2/2. Bilateral lower extremity edema pitting which has improved Neuro: Alert and orientated x 4. PERRLA. Cranial nerves 2-12 intact without focal deficit. Skin: Warm, dry, and intact, without rash, erythema, or lesion. Psych: pleasant, cooperative, normal speech, normal affect, no hallucinations, no dysarthia DS: Data Data Completed and Pending Completed studies during hospitalization: Exam Type: CA echo doppler color flow Complete two-dimensional, color flow and Doppler transthoracic echocardiogram is performed. Staff Referring Physician: William Cordova Supervisor Shipping: Awilda Amezquita Attending Provider: Amado Atkins Summary 1. Complete two-dimensional, color flow and Doppler transthoracic echocardiogram is performed. 2. Borderline LV enlargement, mild LVH; normal LV systolic function, ejection fraction calculated at 64%. Stroke volume index is low at 31 cc/meter sq. Grade II diastolic dysfunction. Normal RV size and systolic function. Mild biatrial enlargement. Mild MAC, no significant MR. Aortic valve is not well visualized, appears calcified; mild aortic stenosis by Doppler, maximum velocity 2.2 m/sec, mean gradient 11 mmHg. Unable to assess RVSP due to inadequate TR jet. Dilated IVC without respiratory collapse. Aortic root calcifications noted. Epicardial fat, no significant pericardial effusion. Continued surveillance for progression of a valvular heart disease is recommended. Labs on day of discharge: Labs from last 24 hours 12/26/24 12/25/24 08:55 12:15 WBC 4.5 RBC 3.33 L Hgb 7.9 L Hct 27.3 L MCV 82.0 MCH 23.7 L MCHC 28.9 L RDW 17.6 H Plt Count 197 MPV 9.6 Immature Gran % (Auto) 0.4 Neut % (Auto) 63.7 Lymph % (Auto) 21.8 [place] % (Auto) 12.8 H Eos % (Auto) 1.1 Baso % (Auto) 0.2 Lymph # (Auto) 0.99 [place] # (Auto) 0.6 Eos # (Auto) 0.1 Baso # (Auto) 0.0 Abs Immat Gran (auto) 0.02 Absolute Neuts (auto) 2.9 Absolute Nucleated RBC 0.000 Band Neutrophils % Not Reportable Nucleated RBC % 0.0 Platelet Estimate Adequate Hypochromasia 1+ Anisocytosis 1+ Schistocytes None seen Sodium 139 Potassium 3.3 L Chloride 104 Carbon Dioxide 28 Anion Gap 7 BUN 20 H D Creatinine 0.71 Estim Creat Clear Calc 81 Estimated GFR > 60 Glucose 128 H Calcium 8.6 Magnesium 2.0 Total Bilirubin 0.2 AST 25 ALT 25 Alkaline Phosphatase 65 Total Protein 6.5 Albumin 3.2 L Legionella Source Cancelled Legionella Culture Cancelled Legionella Cult Status Cancelled Preliminary micro results at discharge 12/22/24 17:17 Blood Culture - Preliminary Blood 12/22/24 18:10 Blood Culture - Preliminary Blood Imaging Radiologist's impression: ITS Impressions Chest X-Ray 12/22/24 16:55 Impression: CHF. Superimposed probable pneumonia Discharge Plan Discharge Attending physician on discharge: Amado Atkins Consulting providers: Renée Tavarez Discharging Clinician: Amado Atkins Anticipated Discharge Date/Time: 12/26/24 12:44 Patient Disposition: NH Usp/Asst Living Activity: as tolerated Diet: heart healthy Discharge Instructions: Fluid restriction: 1500 cc daily Patient Instructions: Antibiotic Form, Heart Failure (DC), How to Stop Smoking (DC), Pneumonia (DC) Patient Language: Solomon Islander Stand Alone Forms: General Discharge Information, Senior Living Discharge Follow-up/Referrals: Katie,Herve Hernandez MD [Primary Care Provider, Unknown] - 1 Week Renée Tavarez DO [Physician, Cardiology] - 2 Weeks Discharge Medications: New cefdinir 300 mg Capsule 300 mg PO Q12HR Qty: 8 0RF guaifenesin [Mucus Relief ER] 600 mg Tablet Extended Release 12hr 1,200 mg PO Q12HR Qty: 20 0RF azithromycin 500 mg Tablet 500 mg PO DAILY Qty: 1 0RF potassium chloride [K-Tab] 20 mEq tablet extended release 20 meq PO DAILY Qty: 30 0RF Continued atorvastatin 20 mg tablet 20 mg PO QPM ropinirole 1 mg tablet 1 mg PO HS alendronate 70 mg tablet 1 tablet PO WEEKLY Patient Comments: Takes every Wednesday. amlodipine 5 mg tablet 5 mg PO DAILY omeprazole 40 mg capsule,delayed release(DR/EC) 40 mg PO DAILY leflunomide 20 mg tablet 20 mg PO DAILY citalopram 20 mg tablet 20 mg PO DAILY albuterol sulfate 90 mcg/actuation HFA aerosol inhaler 2 inh INHALATION Q6H PRN (Reason: Shortness Of Breath Or Wheezing) risperidone 1 mg tablet 1 mg PO HS bupropion HCl 200 mg tablet sustained-release 12 hr 200 mg PO BID metoprolol tartrate 25 mg tablet 25 mg PO DAILY duloxetine 60 mg capsule,delayed release(DR/EC) 60 mg PO DAILY Enbrel SureClick 50 mg/mL (1 mL) pen injector 1 ea SUBCUT WEEKLY Patient Comments: Pt takes on Tuesdays. topiramate 100 mg tablet 100 mg PO TID levothyroxine 150 mcg tablet 150 mcg PO QAM prednisone 5 mg tablet 5 mg PO DAILY multivitamin Tablet 1 tablet PO DAILY Qty: 30 0RF meloxicam 15 mg tablet 15 mg PO DAILY oxcarbazepine 300 mg tablet 300 mg PO TID naloxone [Narcan] 4 mg/actuation spray,non-aerosol 4 mg intranasal Q2M PRN (Reason: opioid overdose) Rx Instructions: [place] 1 spray alternating nostrils every 2 minutes as needed for signs and symptoms of overdose. (Such as unresponsive, shallow breathing, cyanosis). Notify MD and EMS immediately. Initiate CPR if necessary. Changed furosemide 40 mg tablet 60 mg PO DAILY Qty: 45 0RF Other Ambulatory Orders: Complete Blood Count with Diff (Routine) Timeframe: 1 Week Location: Determined by Patient Ordered By: Amado Atkins Comprehensive Metabolic Panel (Routine) Timeframe: 1 Week Location: Determined by Patient Ordered By: Amado Atkins Date of admission: 12/23/24 10:03 Primary Care Provider: KatieHerve Admitting Provider: Amado Atkins Attending physician on admission: Amado Atkins Condition: Serious
[2024-12-26] MEDS: IRON SUCROSE COMPLEX 200 MG, IRON SUCROSE COMPLEX 100 MG in SODIUM CHLORIDE 0.9% IV 250 ML 176.67 MG IVPB (13:10)
[2024-12-27 11:40] LABS: Non-Invasive Expiratory Pressure 7 CMH2O; Non-Invasive Inspiratory Pressure 14 CMH2O; Non-Invasive Vent Rate 16 /MIN
== END 2024-12-26 17:10 | DRG 193 ==
LOC: ANHED 17:24 → ANHIMU 18:27 → ANH3MEDSUR 12-25 20:22
PROVIDERS: Nurse Practitioner Gerontology; Admitting Provider Internal Medicine; Emergency Provider Emergency Medicine; PCP Family Medicine; Visit Provider Internal Medicine
DX: J18.9 Pneumonia, unspecified organism (principal); I50.31 Acute diastolic (congestive) heart failure; J96.01 Acute respiratory failure with hypoxia; J44.0 Chronic obstructive pulmonary disease with (acute) lower respiratory infection; J44.1 Chronic obstructive pulmonary disease with (acute) exacerbation; I11.0 Hypertensive heart disease with heart failure; Z20.822 Contact with and (suspected) exposure to COVID-19; M06.9 Rheumatoid arthritis, unspecified; F31.9 Bipolar disorder, unspecified; E78.5 Hyperlipidemia, unspecified; I35.0 Nonrheumatic aortic (valve) stenosis; D64.9 Anemia, unspecified; E03.9 Hypothyroidism, unspecified; F17.210 Nicotine dependence, cigarettes, uncomplicated; Z96.652 Presence of left artificial knee joint; Z90.710 Acquired absence of both cervix and uterus; Z96.82 Presence of neurostimulator
CPT/HCPCS: 36415; 36430; 36600; 71045; 80048; 80053; 82375; 82607; 82728; 82746; 82805; 83050; 83540; 83550; 83735; 83880; 84439; 84443; 84480; 85014; 85018; 85025; 85610; 85730; 86140; 86850; 86900; 86901; 86923; 87040; 87449; 87637; 87899; 93005; 93306; 94002; 94003; 94640; 94660; 96365; 96367; 96375; 96376; 99285; A9270; G0378; J0456; J0696; J1650; J1756; J1938; J2919; J7050; J7512; P9016

== ENCOUNTER 2025-01-23 13:17 | Emergency (ER) | payer MEDICARE, SELFPAY ==
--- OUTSIDE RECORDS SUMMARY | 2024-09-19 05:30 | XMS_ITS ---
Author Organization [facility] [employer] Address [address] [place] [address] Care Team Providers Care Feeder Catcher Name Role Phone Katie SINGH, Herve Primary Care Provider Ernestina Villasenor Unavailable [phone] REASON FOR VISIT follow up Social History Sex Assigned At : Social History Observation Description Sex Assigned At Female Encounters Encounter Location Date Provider Diagnosis [facility] [facility] [address] [place] [address] 09/19/2024 Ernestina Viera Plan Of Treatment No Information Progress Notes * JHONATHAN FLEMINGOB:1955 (69 yo F)Acc No.[id number]:09/19/2024 Patient: TISHA WHITE Provider: SINDHU RICO :1955 A ge:69 Y S ex:Female Date:09/19/2024 Address[facility] [facility] Pcp:Herve Wilson MD Subjective: * Chief Complaints: * F ollow up * Electronic signature of SINDHU Burgess on 01/24/2025 at 03:26 AM MANAGER INTERVENTIONAL Sign off status: Pending * Provider: SINDHU RICO Date: 0 09/19/2024 Generated for Printi ng/Faxing/eTransmitting on: 1 03/26/2024 03:26 AM MANAGER INTERVENTIONAL
--- OUTSIDE RECORDS SUMMARY | 2024-10-26 08:57 | XMS_ITS ---
Author Organization [facility] Address [address] [facility] 100 [address] Care Team Providers Care Linen Controller Name Role Phone Herve Wilson Primary Care Provider Herve Dominguez Unavailable [phone] REASON FOR VISIT Schedule MR Encounters Encounter Location Date Provider Diagnosis [facility] [address] [facility] 100 [address] 10/26/2024 Herve Cotton PLAN OF TREATMENT No Information
--- OUTSIDE RECORDS SUMMARY | 2024-10-26 09:28 | XMS_ITS ---
Author Organization [facility] Address [address] [address] Care Team Providers Care Uke Operator Name Role Phone Herve Wilson Primary Care Provider Herve Dominguez Unavailable [phone] RESULTS Component Value Reference Range Notes Cervical, Thoracic, Lumbar M RI without contrast Reviewed date:10/27/2024 10:28:17 AM Interpretation:completed Performing Lab: Notes/Report: completed REASON FOR VISIT MRI Encounters Encounter Location Date Provider Diagnosis [facility] [facility] 100 [place] [address] 10/26/2024 Herve Cotton 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
--- OUTSIDE RECORDS SUMMARY | 2024-11-24 08:46 | XMS_ITS ---
Author Organization [facility] Address [address] [facility] 100 [place] [address] Care Team Providers Care Marketing Planner Name Role Phone Herve Wilson Primary Care Provider Herve Dominguez Unavailable [phone] REASON FOR VISIT to schedule MRI for Alisha Encounters Encounter Location Date Provider Diagnosis [facility] [address] [facility] [address] [place] [address] 11/24/2024 Herve Cotton PLAN OF TREATMENT No Information
--- OUTSIDE RECORDS SUMMARY | 2024-12-11 05:30 | XMS_ITS ---
Author Organization [facility] Address [address] [facility] 100 [place] [address] Care Team Providers Care Mussel Farmer Name Role Phone Herve Wilson Primary Care Provider Herve Dominguez Unavailable [phone] REASON FOR VISIT Mri Results Encounters Encounter Location Date Provider Diagnosis [facility] [address] [facility] 100 [place] [address] 12/11/2024 Herve Cotton PLAN OF TREATMENT No Information
--- OUTSIDE RECORDS SUMMARY | 2024-12-18 05:26 | XMS_ITS ---
Author Organization [facility] Address [address] [facility] 100 [place] [address] Care Team Providers Care Machine Gunner Name Role Phone Herve Wilson Primary Care Provider Herve Dominguez Unavailable [phone] REASON FOR VISIT Mri Encounters Encounter Location Date Provider Diagnosis [facility] [address] [facility] 100 [place] [address] 12/18/2024 Herve Cotton PLAN OF TREATMENT No Information
--- OUTSIDE RECORDS SUMMARY | 2024-12-18 06:12 | XMS_ITS ---
Author Organization [facility], Address [address] [facility] 100 [place] [address] Care Team Providers Care Humidifier Attendant Name Role Phone Herve Wilson Primary Care Provider Herve Dominguez Unavailable [phone] REASON FOR VISIT SNN MRI C/T/L 12/06/24 Encounters Encounter Location Date Provider Diagnosis [facility] [address] [facility] 100 [place] [address] 12/18/2024 Herve Cotton PLAN OF TREATMENT No Information
--- OUTSIDE RECORDS SUMMARY | 2024-12-19 03:51 | XMS_ITS ---
Author Organization [facility] Address [address] [facility] 100 [place] [address] Care Team Providers Care Surveying Or Spatial Science Technician Name Role Phone Herve Wilson Primary Care Provider Herve Dominguez Unavailable [phone] REASON FOR VISIT Returning a call Encounters Encounter Location Date Provider Diagnosis [facility] [address] [facility] 100 [place] [address] 12/19/2024 Herve Cotton PLAN OF TREATMENT No Information
--- OUTSIDE RECORDS SUMMARY | 2024-12-22 07:39 | XMS_ITS ---
Author Organization [facility] Address [address] [facility] 100 [place] [address] Care Team Providers Care Cylinder Block Mechanic Name Role Phone Herve Wilson Primary Care Provider Herve Dominguez Unavailable [phone] REASON FOR VISIT Procedure Encounters Encounter Location Date Provider Diagnosis [facility] [address] [facility] 100 [place] [address] 12/22/2024 Herve Cotton PLAN OF TREATMENT No Information
--- OUTSIDE RECORDS SUMMARY | 2025-01-02 07:00 | XMS_ITS ---
Author Organization [facility] Address [address] [facility] [address] [place] [address] Care Team Providers Care Algologist Name Role Phone Herve Wilson Primary Care Provider Herve Dominguez Unavailable [phone] REASON FOR VISIT f/u after cervical MRI Encounters Encounter Location Date Provider Diagnosis [facility] [address] [facility] [address] [place] [address] 01/02/2025 Herve Cotton PLAN OF TREATMENT No Information
--- OUTSIDE RECORDS SUMMARY | 2025-01-22 03:00 | XMS_ITS ---
Author Organization [facility] Address [address] [facility] [address] [place] [address] Care Team Providers Care Ocean Rescue Lieutenant Name Role Phone Herve Wilson Primary Care Provider Herve Dominguez Unavailable [phone] Candi Wing Unavailable [phone] REASON FOR VISIT f/u after cervical MRI Encounters Encounter Location Date Provider Diagnosis [facility] [address] [facility] [address] [place] [address] 01/22/2025 Candi Wing PLAN OF TREATMENT No Information
[2025-01-23] VITALS (19 sets, daily range): BP systolic 109–147; BP diastolic 55–68; PULSE 44–54; RESP 15–27; TEMP 36.4; O2SAT 93–100
--- NOTE | ~2025-01-23 | XR_ITS ---
Examination: XR chest 1V portable Clinical History: aspiration event Comparison: 12/22/2024 Technique: Portable AP Findings: Cardiomegaly. Right upper lobe airspace disease. Mildly increased diffuse interstitial markings. Elevated left hemidiaphragm, associated basilar atelectasis. No acute bony abnormality. IMPRESSION: 1. Right upper lobe airspace disease. 2. Interstitial pulmonary edema and/or pneumonitis. Reviewed, dictated and finalized at location R. UITMENT MANAGER
--- NOTE | 2025-01-23 14:27 | ECG_ITS ---
Test Date: 2025-01-23 14:40:49 Measurements Intervals [place] Rate: 50 P: 109 FL: 336 QRS: -47 QRSD: 124 T: 16 QT: 476 QTc: 438 Interpretive Statements ELECTRONIC ATRIAL PACEMAKER LEFT ANTERIOR FASCICULAR BLOCK [QRS AXIS <= -45, QR IN I, RS IN II] ABNORMAL ECG Electronically Signed On 01-23-2025 16:01:44 WAREHOUSE UNLOADER by Rafa Delcid M.D.
--- NOTE | 2025-01-23 14:42 | ED.GENADULT ---
HPI - General Adult General Chief complaint: Unspecified Stated complaint: aspirated on lunch Time Seen by Provider: 01/23/25 14:07 Source: patient and EMS Mode of arrival: EMS Limitations: no limitations History of Present Illness HPI narrative: This is a 69-year-old female with history of COPD, CHF who presents the ED from detention for aspiration event. Patient states that she was eating chicken and rice today when she choked on it. Patient states that the facility was able to ?use air? to get it out. She reports that she feels at her baseline at this time. Denies fevers, chills, chest pain, shortness of breath, nausea vomiting. Related Data Home Medications ?Medication ?Instructions ?Recorded ?Confirmed ?Last Taken ?Type albuterol sulfate 90 mcg/actuation 2 inh inhalation Q6H PRN Shortness 08/25/21 12/22/24 Unknown History aerosol inhaler Of Breath Or Wheezing alendronate 70 mg tablet 1 tablet PO WEEKLY 08/25/21 12/22/24 12/18/24 10:15 History amlodipine 5 mg tablet 5 mg PO DAILY 08/25/21 12/22/24 12/22/24 11:00 History atorvastatin 20 mg tablet 20 mg PO QPM 08/25/21 12/22/24 12/21/24 22:30 History bupropion HCl 200 mg tablet,12 hr 200 mg PO BID 08/25/21 12/22/24 12/22/24 11:00 History sustained-release citalopram 20 mg tablet 20 mg PO DAILY 08/25/21 12/22/24 12/22/24 11:00 History duloxetine 60 mg capsule,delayed 60 mg PO DAILY 08/25/21 12/22/24 12/22/24 11:00 History release etanercept 50 mg/mL (1 mL) 1 ea subcut WEEKLY 08/25/21 12/22/24 12/19/24 10:15 History subcutaneous pen injector (Enbrel SureMarioick) leflunomide 20 mg tablet 20 mg PO DAILY 08/25/21 12/22/24 04/30/24 History metoprolol tartrate 25 mg tablet 25 mg PO DAILY 08/25/21 12/22/24 12/22/24 11:00 History omeprazole 40 mg capsule,delayed 40 mg PO DAILY 08/25/21 12/22/2425 11:00 History release risperidone 1 mg tablet 1 mg PO HS 08/25/21 12/22/24 12/21/24 22:30 History ropinirole 1 mg tablet 1 mg PO HS 08/25/21 12/22/24 12/21/24 22:30 History topiramate 100 mg tablet 100 mg PO TID 08/25/21 12/22/24 12/22/24 14:00 History levothyroxine 150 mcg tablet 150 mcg PO QAM 04/21/24 12/22/24 12/22/24 05:50 History prednisone 5 mg tablet 5 mg PO DAILY 04/21/24 12/22/24 12/22/24 11:00 History meloxicam 15 mg tablet 15 mg PO DAILY 12/22/24 12/22/24 12/22/24 11:00 History naloxone 4 mg/actuation nasal 4 mg intranasal Q2M PRN opioid 12/22/24 12/22/24 Unknown History spray (Narcan) overdose oxcarbazepine 300 mg tablet 300 mg PO TID 12/22/24 12/22/24 12/22/24 14:00 History Allergies Allergy/AdvReac Type Severity Reaction Status Date / Time montelukast Allergy Other Verified 01/23/25 13:33 Review of Systems Review of Systems: Gen.: Denies fevers or chills Eyes: Denies eye pain or visual change ENT: Denies congestion Respiratory: Denies shortness of breath or cough CV: Denies chest pain or palpitations GI: Denies abdominal pain nausea, emesis or diarrhea denies burning, urgency, frequency or hematuria Musculoskeletal: Denies back pain or muscle pain Neuro: Denies numbness, tingling, weakness or focal weakness Skin: Denies rash Except as documented, all other systems reviewed and negative [facility]LY [facility] Past Medical History Medical History Pulmonary hypertension Diastolic dysfunction Chronic obstructive pulmonary disease Rheumatoid arthritis Carpal tunnel syndrome Anxiety and depression Bipolar 1 disorder Hyperlipemia Hypertension Hypothyroidism Surgical History Surgical History Status post insertion of sacral nerve stimulator History of hysterectomy History of thyroidectomy History of total left knee replacement History of tonsillectomy Family History Family History Mother Hypertension COPD (chronic obstructive pulmonary disease) Lung cancer Father Hypertension COPD (chronic obstructive pulmonary disease) Lung cancer Grandparent Cerebrovascular accident maternal grandmother Son Diabetes mellitus Social History Social History Social History: Surrogate medical decision maker: Adam Arguello, doc. Code status: Full code. Smoking packs per day: 0.5 Smoking cigarettes per day: 10.0 Years smoked: 45 Smoking pack-years: 22.50 Smoking status: Current every day smoker Tobacco type: cigarettes Alcohol intake: former Alcohol use details: FORMER ALCOHOLIC QUIT 2009 Substance use: unknown Substance use type: unknown Do You Feel Safe in your Home?: Yes Lack of Transportation: No Lack of Food: Never True Current Housing: I Have Housing Concerned About Future Housing: No Difficulty Paying Gas/Electric Bills: YES Difficulty Paying for Meds: YES Currently Unemployed: No Education: High School Diploma/GED Difficulty w/ Childcare or Family Care: No Living arrangements: alone Additional living arrangements comments: Lives alone. She has 1 son. 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 Spiritual care concerns: No Agree to blood products: Yes Exam Narrative: APPEARANCE: No acute distress, nontoxic, resting in bed EYES: EOMI HEENT: Normocephalic, atraumatic, OMM RESPIRATORY: No respiratory distress Clear to auscultation bilaterally with no rhonchi wheezing or rales. CARDIOVASCULAR: Regular rate and rhythm without murmurs rubs or gallops. ABDOMINAL: Soft, nontender, nondistended, no rebound or guarding MUSCULOSKELETAl: Moves all extremities. No clubbing, cyanosis or edema. NEURO: Awake and alert. Following commands, speech normal, no focal deficits SKIN:: Warm, dry. No rashes lesions or abrasions PSYCHIATRIC: Normal affect/mood, Course Vital Signs Vital signs: Vital Signs Pulse Rate 51 L 01/23/25 13:25 Respiratory Rate 23 H 01/23/25 13:25 Blood Pressure 127/63 01/23/25 13:25 Pulse Oximetry 97 01/23/25 13:25 Temperature 97.6 F 01/23/25 13:26 Pulse Rate 52 L 01/23/25 15:56 Respiratory Rate 16 01/23/25 15:56 Blood Pressure 138/64 01/23/25 14:32 Pulse Oximetry 99 01/23/25 15:56 Oxygen Delivery Room Air 01/23/25 13:26 Medical Decision Making MDM Narrative Medical decision making narrative: 69-year-old female Presenting for shortness of breath after an aspiration event. On initial evaluation patient was in no acute distress afebrile, hemodynamic stable. Differentials include but are not limited to: ACS, CHF Exacerbation, COPD exacerbation, PE, PNA, PTX, bronchitis, viral syndrome, aspiration Notable exam findings: Heart and lungs clear, no respiratory distress, oropharynx clear I personally reviewed the patient's lab result. Notable lab findings: Anemia with hemoglobin at 10.3 which is improved from previous. CMP without significant abnormalities. I personally reviewed the patient's images and interpret as follows: Chest x-ray showed a right upper lobe infiltrate I personally reviewed the patient's EKGs: 01/23/2025 at 2:40 p.m.: Electronic atrial pacemaker rate of 50, left anterior fascicular block, no acute ST or T-wave changes Patient was in no acute distress by the time she had arrived to the ED. She reported that her shortness of breath was significantly better. She does have a pneumonia so she will be started on a Augmentin and doxycycline for this. Given her history of COPD, she will also be given a short course of prednisone. She was advised to follow-up with her PCP in the next week for re-evaluation. Patient was agreeable to this plan. Given strict return precautions. Vital Signs Vital Signs: Vital Signs Pulse Rate 51 L 01/23/25 13:25 Respiratory Rate 23 H 01/23/25 13:25 Blood Pressure 127/63 01/23/25 13:25 Pulse Oximetry 97 01/23/25 13:25 Temperature 97.6 F 01/23/25 13:26 Pulse Rate 52 L 01/23/25 15:56 Respiratory Rate 16 01/23/25 15:56 Blood Pressure 138/64 01/23/25 14:32 Pulse Oximetry 99 01/23/25 15:56 Oxygen Delivery Room Air 01/23/25 13:26 Lab Data 01/23/25 14:59 01/23/25 14:59 Labs: Lab Results 01/23/25 Range/Units 14:59 WBC 7.1 (4.5-10.0) K/mm3 RBC 4.02 L (4.2-5.4) M/mm3 Hgb 10.3 L (12.0-15.0) g/dL Hct 35.5 L (37.0-47.0) % MCV 88.3 (80-100) fl MCH 25.6 L (26-34) pg MCHC 29.0 L (32-36) g/dl RDW 21.6 H (11.5-14.5) % Plt Count 229 (150-375) k/mm3 MPV 11.0 H (7.4-10.4) fl Immature Gran % (Auto) 0.7 H (0-0.5) % Neut % (Auto) 74.0 H (45.5-73.1) % Lymph % (Auto) 16.7 L (18.3-44.2) % [place] % (Auto) 5.8 (2.6-8.5) % Eos % (Auto) 2.4 (0-4.4) % Baso % (Auto) 0.4 (0.2-1.2) % Lymph # (Auto) 1.18 (0.9-3.2) K/mm3 [place] # (Auto) 0.4 (0.1-0.6) K/mm3 Eos # (Auto) 0.2 (0-0.3) K/mm3 Baso # (Auto) 0.0 (0.0-0.1) K/mm3 Abs Immat Gran (auto) 0.05 H (0.00-0.031) K/mm3 Absolute Neuts (auto) 5.2 (1.3-6.7) K/mm3 Absolute Nucleated RBC 0.000 (0.0-0.012) K/mm3 Band Neutrophils % 0 (0-6) % Nucleated RBC % 0.0 (0.0-0.2) % Platelet Estimate Adequate (Adequate) Hypochromasia 1+ Anisocytosis 3+ Schistocytes None seen Sodium 137 (137-145) mmol/L Potassium 4.3 (3.4-5.0) mmol/L Chloride 101 (98-107) mmol/L Carbon Dioxide 28 (22-30) mmol/L Anion Gap 8 (4-12) mmol/L BUN 17 (7-17) mg/dL Creatinine 0.89 (0.7-1.0) mg/dL Estim Creat Clear Calc 57 ml/min Estimated GFR > 60 (59 - ) Glucose 92 (65-110) mg/dL Lactic Acid 1.5 (0.7-2.0) mmol/L Calcium 8.8 (8.4-10.2) mg/dL Total Bilirubin 0.4 (0.2-1.3) mg/dL AST 21 (14-36) U/L ALT 18 (6-35) U/L Alkaline Phosphatase 61 (38-126) U/L Total Protein 7.3 (6.3-8.2) g/dL Albumin 3.8 (3.5-5.1) g/dL Discharge Plan Discharge Clinical Impression: Acute exacerbation of chronic obstructive pulmonary disease Aspiration into airway Qualifiers: Encounter type: initial encounter Qualified Code(s): T17.908A - Unspecified foreign body in respiratory tract, part unspecified causing other injury, initial encounter CAP (community acquired pneumonia) Qualifiers: Laterality: right Lung location: upper lobe of lung Qualified Code(s): J18.9 - Pneumonia, unspecified organism Patient Disposition: Home Condition: Stable Instructions: Antibiotic Form, Community Acquired Pneumonia (ED) Additional Instructions: Take Augmentin, doxycycline, prednisone as prescribed. Follow-up with your PCP in the next week for re-evaluation. Return to the ED for new or worsening symptoms. Patient Language: Latvian Prescriptions: New amoxicillin-pot clavulanate 875-125 mg tablet 1 tablet PO Q12H Qty: 9 0RF doxycycline hyclate 100 mg capsule 100 mg PO Q12H Qty: 9 0RF prednisone 50 mg tablet 50 mg PO DAILY Qty: 4 0RF Rx Instructions: begin taking 01/24 No Action atorvastatin 20 mg tablet 20 mg PO QPM ropinirole 1 mg tablet 1 mg PO HS alendronate 70 mg tablet 1 tablet PO WEEKLY Patient Comments: Takes every Wednesday. amlodipine 5 mg tablet 5 mg PO DAILY omeprazole 40 mg capsule,delayed release(DR/EC) 40 mg PO DAILY leflunomide 20 mg tablet 20 mg PO DAILY citalopram 20 mg tablet 20 mg PO DAILY albuterol sulfate 90 mcg/actuation HFA aerosol inhaler 2 inh INHALATION Q6H PRN (Reason: Shortness Of Breath Or Wheezing) risperidone 1 mg tablet 1 mg PO HS bupropion HCl 200 mg tablet sustained-release 12 hr 200 mg PO BID metoprolol tartrate 25 mg tablet 25 mg PO DAILY duloxetine 60 mg capsule,delayed release(DR/EC) 60 mg PO DAILY Enbrel SureClick 50 mg/mL (1 mL) pen injector 1 ea SUBCUT WEEKLY Patient Comments: Pt takes on Tuesdays. topiramate 100 mg tablet 100 mg PO TID levothyroxine 150 mcg tablet 150 mcg PO QAM prednisone 5 mg tablet 5 mg PO DAILY multivitamin Tablet 1 tablet PO DAILY Qty: 30 0RF meloxicam 15 mg tablet 15 mg PO DAILY oxcarbazepine 300 mg tablet 300 mg PO TID naloxone [Narcan] 4 mg/actuation spray,non-aerosol 4 mg intranasal Q2M PRN (Reason: opioid overdose) Rx Instructions: [place] 1 spray alternating nostrils every 2 minutes as needed for signs and symptoms of overdose. (Such as unresponsive, shallow breathing, cyanosis). Notify MD and EMS immediately. Initiate CPR if necessary. cefdinir 300 mg Capsule 300 mg PO Q12HR Qty: 8 0RF azithromycin 500 mg Tablet 500 mg PO DAILY Qty: 1 0RF guaifenesin [Mucus Relief ER] 600 mg Tablet Extended Release 12hr 1,200 mg PO Q12HR Qty: 20 0RF potassium chloride [K-Tab] 20 mEq tablet extended release 20 meq PO DAILY Qty: 30 0RF furosemide 40 mg tablet 60 mg PO DAILY Qty: 45 0RF Follow-up/Referrals: Katie,Herve Hernandez MD [Non-Staff, Unknown]
[2025-01-23] MEDS: DOXYCYCLINE HYCLATE 100 MG TABLET PO (15:01)
[2025-01-23 15:08] LABS: Hematocrit 35.5 % (37.0-47.0); Hemoglobin 10.3 g/dL (12.0-15.0); Immature Granulocyte Percent A 0.7 % (0-0.5); Lymphocytes Absolute Auto 1.18 K/mm3 (0.9-3.2); Mean Corpuscular HGB Conc 29.0 g/dl (32-36); Mean Corpuscular Hemoglobin 25.6 pg (26-34); Mean Corpuscular Volume 88.3 fl (80-100); Nucleated Red Blood Cells Absolute Auto 0.000 K/mm3 (0.0-0.012); Nucleated Red Blood Cells Perc 0.0 % (0.0-0.2); Platelet Count Result 229 k/mm3 (150-375); Red Blood Count 4.02 M/mm3 (4.2-5.4); White Blood Count 7.1 K/mm3 (4.5-10.0)
[2025-01-23 15:19] LABS: Alanine Aminotransferase 18 U/L (6-35); Albumin Level 3.8 g/dL (3.5-5.1); Alkaline Phosphatase 61 U/L (38-126); Anion Gap 8 mmol/L (4-12); Aspartate Amino Transferase 21 U/L (14-36); Bilirubin,Total 0.4 mg/dL (0.2-1.3); Blood Urea Nitrogen 17 mg/dL (7-17); Calcium 8.8 mg/dL (8.4-10.2); Carbon Dioxide 28 mmol/L (22-30); Chloride 101 mmol/L (98-107); Estimated CRCL calculation 57 ml/min; Estimated Glomerular Filt Rate > 60; Glucose 92 mg/dL (65-110); Potassium 4.3 mmol/L (3.4-5.0); Sodium 137 mmol/L (137-145); Total Protein 7.3 g/dL (6.3-8.2)
[2025-01-23 15:32] LABS: Band Neutrophils Percent 0 % (0-6); Hypochromasia 1+; Schistocytes None Seen
[2025-01-23 15:33] LABS: Anisocytosis 3+
--- OUTSIDE RECORDS SUMMARY | 2025-01-24 03:20 | XMS_ITS | Clinical Summary ---
Author Organization [facility] [employer] Address [address] [place] [address] Care Team Providers Care Enamel Sprayer Name Role Phone Unavailable Primary Care Provider Unavailabl e Source Comments [facility] [employer],non-owned Affiliates and Associated Physician Practices is amultiple site organization consisting of ambulatory clinics and hospital sitesin [place], [place], [place] and [place]. This disclosure is being madepursuant to the Care Everywhere program and may not contain all information available regarding this patient. 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
--- OUTSIDE RECORDS SUMMARY | 2025-01-24 03:20 | XMS_ITS | Encounter Summary ---
Author Organization [facility] Address [address] [place] [address] Phone Care Team Providers Care Commercial Drone Pilot Name Role Phone Sarmad Bowden Primary Care Provider [phone] Cy Mckinnon DO Unavailable [phone] Mirna Rider MD Primary Care Provider [phone] Anitra Rothman MD Primary Care Provider [phone] Justen Milton MD Primary Care Provider [phone] Herve Wilson MD Primary Care Provider [phone] Encounter Details Date Type Department Care Team (Late st Contact Info) Description 06/18/2017 Orders Only [facility] ProviderRusty MD [address] [place] [id number] Social History Tobacco Use Types Packs/Day Years Used Date Smoking Tobacco: Former Smokeless Tobacco: Never Comments:Smoking History Pac ks/day: 1 Packs Alcohol Use Standard Drinks/Week Comments No 0 (1 standard drink = 0.6 oz pur e alcohol) Comments Unknown Sex and Gender Information Value Date Recorded Sex Assigned at Not on file 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 [employer] Gender Identity Female 01/10/2021 2:50 PM CDT Sexual Orientation Not on file documented as of this encounter Functional Status * BP Location Answer Date of Assessment Author Right arm 06/18/2017 10:57 AM CDT Benjamin CMA * BP Location Answer Date of Assessment Author Right arm 06/18/2017 10:57 AM CDT Benjamin, CLOTH FINISHER documented as of this encounter Plan of [...] on filedocumented in this encounter Care Teams Commercial Drone Pilot Relationship Specialty Start Date End Date Faviola Bowden MD [address] [address] PCP - General 06/05/16 12/15/17 Mirna Rider MD [address] [place] [address] [place] [address] PCP - General 12/16/17 04/23/19 Anitra Rothman MD [address] [place] [address] [place] [address] PCP - General 04/24/19 03/24/20 [place] [address] [place] [id number] PCP - General 03/25/20 10/07/23 Herve Wilson MD [address] [place] [address] PCP - General Family Medicine 10/08/23 Cy Mckinnon DO [address] [place] [address] Medical Oncologist/Manager Program Management Hematology and Oncology 10/05/17 documented as of this encounter
--- OUTSIDE RECORDS SUMMARY | 2025-01-24 03:20 | XMS_ITS | Clinical Summary ---
Author Organization [facility] Address [address] [place] [address] Care Team Providers Care Clinical Safety Specialist Name Role Phone Cy Mckinnon DO Unavailable [phone] Herve Wilson MD Primary Care Provider [phone] Allergies Active Allergy Reactions Criticality Noted Date [...] TABLET BY MOUTH EVERY DAY 30 tablet 01/04/20 25 Active predniSONE (DELTASONE) 5 mg tablet TAKE 1 TABLET BY MOUTH EVERY DAY 30 tablet 11/29/19 25 2024 Discontinued Active Problems Problem Noted [...] are complete. Avoid live-vaccines unless reviewed with glass breaker first. Osteopenia 10/08/2023 Assessment & Plan (10/08/2023 11:08 AM CDT): On fosamax since 2020. Due for repeat DEXA. Will do at [facility]. You need 1200mg calcium daily between [...] (10/30/2021): Added automatically from request for surgery [id number] Mechanical complication of e lectrode lead of implanted electronic neurostimulator of peripheral nerve 10/30/2021 Overview (10/30/2021): Added automatically from request for surgery [id number] Stress incontinence 07/04/2020 Overview (07/04/2020): Added automatically from request for surgery [id number] Primary nocturnal enuresis 07/04/2020 Overview (07/04/2020): Added automatically from request for surgery [id number] Dysphagia 03/27/2020 Overview (03/27/2020): Added automatically from request for surgery [id number] Special screening for malignant neoplasms, colon 03/27/2020 Overview (03/27/2020): Added automatically from request for surgery [id number] Anemia 02/22/2019 Overview (03/06/2024): Problems with anemia [...] Encounters Date Type Department Care Team Description 12/27/[address] [facility] Medical [facility] Cardiology [address] [facility] [address] [place] [address] Live Dawson MD 11/13/[address] [facility] Medical [facility] Rheumatology at [address] [address] Mary White, MG lab error 11/13/[address] [facility] Medical Group Rheumatology at [address] [place] [address] Suzanne Zaman MD Prior Auth (Enbrel ) 11/01/2024 Results Follow-Up [facility] Medical [facility] Rheumatology at [address] [place] [address] Mary White NP TSH, Creatine kinase (CK), total, Magnesium, Additional followed-up results: 7 10/31/[address] [facility] Medical [facility] Rheumatology at [address] [address] Mary White NP medication/results 10/30/2024 1:38 PM CDT - 10/30/2024 11:59 PM CDT Hospital Encounter [id number] [place] [address] Discharge Disposition: Discharge to home or self care 10/30/2024 1:00 PM CDT Office Visit [facility] Medical Group Rheumatology at [facility] [address] [facility] [address] [place] [phone] Mary White, MG Rheumatoid arthritis involving multiple [...] intestine 07/22/2013 Dive rticulitis Bipolar I disorder ([facility]) 06/14/2012 Bipolar 1 disorder Rheumatoid arthritis (HCC) Hypothyroidism Hyperlipidemia HTN (hypertension) GERD (gastroesophageal reflux disease) Esophageal stenosis Osteoporosis Neuropathy Heart valve regurgitation CHF (congestive heart failure) (HCC) history Bipolar 1 disorder (HCC) Hiatal hernia Peptic ulcer disease Family History Medical History Relation Name Comments Colon cancer Father 2 Cancer -colon; Cause of : Cancer -colon Heart attack Maternal Grandmother 2 UT; C ause of : UT COPD Mother 2 COPD; Cause of : [...] on file 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 Gender Identity Female 01/10/2021 2:50 PM CDT [...] Assessment 12/02/2022 12/02/2021 Influenza Vaccine (#1) 2024 , 01/17/2021, 01/05/2020, Additional history exists Colon Cancer Screening-Colonoscopy 04/12/2030 04/12/2020 Zoster Vaccine Completed 03/24/2020, 01/05/2020 Colon Cancer Screening-CT Colonography Discontinued 04/12/2020 Colon Cancer Screening-DNA Stool Discontinued 04/12/19 Colon Cancer Screening-FIT Discontinued 04/12/2020 Colon Cancer Screening-Sigmoidoscopy Discontinued 04/12/2020 Medical Devices Implanted Type Area Flash Welder Device Identifier Shelf Expiration Date Model / Serial / Lot Medtronic Neuro 3058 Interstim Ii 2inx1.7in 4 Electrode Computer Graphic Artist Sacral Nerve - [id number] - [id number] Implanted:Qty: 1 on 07/23/2020 by Husam Morales MD at [facility] Neurostimulator Right: Buttocks Medtronic Inc 07/03/2021 [id number] / [id number] / Description:Sub Q upper righ t buttocks [employer] [id number] Interstim 28cm Quadripolar Mri National [employer]s Sales Neurostimulator - Sn/A - [id number] Implanted:Qty: 1 on 07/23/2020 by Husam Morales MD at [facility] Neurostimulator Right: Lumbar-Sac ral Spine Medtronic Inc 10/22/2021 [id number] / N/A / [id number] Description:Right Sacral-3 F oramin Medtronic Inc Generator Neurostimulator Bowel Bladder Recharge Free Interstim X [id number] - [id number] - [id number] Implanted:Qty: 1 on 12/02/2021 by Husam Morales MD at [facility] N/A: Buttocks Medtronic Inc 04/21/2023 [id number] / [id number] / Medtronic Inc Interstim 28cm Quadripolar Mri National Accounts Sales Neurostimulator [id number] - [id number] Implanted:Qty: 1 on 12/02/2021 by Husam Morales MD at [facility] N/A: Sacrum Medtronic Inc 02/12/2023 [id number] / / [id number] Procedures Procedure Name Priority Date/Time Associated Diagnosis Comments CARDIOLOGY DOCUMENT SCAN Routine 12/23/2024 12:52 PM CDT EGFR Routine 10/30/2024 1:51 PM CDT Long-term [...] Muscle weakness (generalized) COLONOSCOPY 04/12/2020 8:43 AM FUR REPAIR INSPECTOR DEXA AXIAL SKELETON BONE DENSITY 1 OR MORE SITES Schedule Routine, Read Routine (OP Routine) 04/05/2020 10:47 AM FUR REPAIR INSPECTOR Encounter for screening for osteoporosis SCREENING MAMMOGRAM BILATERAL W CRISTOBAL Schedule Routine, Read Routine (OP Routine) 04/24/2019 11:01 AM FUR REPAIR INSPECTOR Encounter for screening mammogram for malignant neoplasm of breast from Last 3 Months or Most Recently Relevant to Health Maintenance Results * Cardiology Document Scan (12/23/2024 12:52 PM CDT) Anatomical Region Laterality Modality Other us Live Dawson MD CV CARDIAC SERVICES PROCEDURES F inal Result * Myomarker panel 3 (10/30/2024 1:51 PM CDT) Anti-Yovana-1 ab <20 <20 Units [place] [facility] Anti PL-7 ab Negative Negative [facility] Comment: This test was developed and its performance characteristics determined by [facility]. It has not been cleared or approved by the Food and Drug Administration. Anti PL-12 ab Negative Negative [facility] Comment: This test was developed and its performance characteristics determined by [facility]. It has not been cleared or approved by the Food and Drug Administration. Anti EJ ab Negative Negative [facility] Comment: This test was developed and its performance characteristics determined by [facility]. It has not been cleared or approved by the Food and Drug Administration. Anti OJ ab Negative Negative [facility] Comment: This test was developed and its performance characteristics determined by [facility]. It has not been cleared or approved by the Food and Drug Administration. Anti SRP ab Negative Negative [facility] Comment: This test was developed and its performance characteristics determined by [facility]. It has not been cleared or approved by the Food and Drug Administration. Anti Mi-2 ab Negative Negative [facility] Comment: This test was developed and its performance characteristics determined by [facility]. It has not been cleared or approved by the Food and Drug Administration. Polymyositis PM-SCL ab <20 <20 Units [facility] Comment: This test was developed and its performance characteristics determined by [facility]. It has not been cleared or approved by the Food and Drug Administration. Fibrillarin U3 ab Negative Negative [facility] Comment: This test was developed and its performance characteristics determined by [facility]. It has not been cleared or approved by the Food and Drug Administration. Interpretation for Anti-Yovana-1, [id number], Anti-MDA-5, Anti-NXP-2, Anti-PM/Scl-100, Anti-SS-A 52 kD, Anti-U1 RN INTERNAL MEDICINE: Negative: <20 Weak Positive: 20 - 39 Moderate Positive: 40 - 80 Strong Positive: >80 . Test Performed by: [facility] Endocrinology [address] [place] [address] Anti U2 SN RN INTERNAL MEDICINE ab Negative Negative [facility] Comment: This test was developed and its performance characteristics determined by [facility]. It has not been cleared or approved by the Food and Drug Administration. Anti U1RNP ab <20 <20 Units [facility] Anti KU ab Negative Negative [facility] Comment: This test was developed and its performance characteristics determined by [facility]. It has not been cleared or approved by the Food and Drug Administration. P155/140 ab <20 <20 Units [facility] Comment: This test was developed and its performance characteristics determined by [facility]. It has not been cleared or approved by the Food and Drug Administration. MDA-5 P140 ab <20 <20 Units [facility] Comment: This test was developed and its performance characteristics determined by [facility]. It has not been cleared or approved by the Food and Drug Administration. NXP-2 P140 ab <20 <20 Units [facility] Comment: This test was developed and its performance characteristics determined by [facility]. It has not been cleared or approved by the Food and Drug Administration. SSA52 KD ab IgG <20 <20 Units [facility] Comment: This test was developed and its performance characteristics determined by [facility]. It has not been cleared or approved by the Food and Drug Administration. Blood 10/30/2024 1:51 PM CDT 10/30/2024 10:26 PM CDT Mary White NP LAB BLOOD ORDERABLES Final Re sult Performing Organization Address [facility] Co de Phone Number [facility] [address] [place] [address] [place] ref [facility] * eGFR (10/30/2024 1:51 PM [...] CDT 10/30/2024 8:32 PM CDT Mary White NP LAB BLOOD ORDERABLES Final Re sult Performing Organization Address City/[facility]/ZIP Co de Phone Number [facility] [address] Department [place] [address] * Differential, auto (10/30/2024 1:51 PM CDT) Neutrophil abs 4.32 1.50 - 6.50 K/cumm Imm gran abs 0.03 0.00 - 0.10 K/cumm [facility] Lymphocyte abs 1.03 0.80 - 3.30 K/cumm [facility] Monocyte abs 0.63 0.20 - 0.80 K/cumm [facility] Eosinophil abs 0.14 0.00 - 0.50 K/cumm [facility] Basophil abs 0.03 0.00 - 0.10 K/cumm [facility] Neutrophil pct 69.8 % [facility] Comment: Interpretive Data Percent cell count reference ranges are not reported, since discordance with absolute values may lead to misinterpretation of CBC data. Current Interpretive Data was last revised on 2017. Imm gran pct 0.5 % [facility] Comment: Interpretive Data Percent cell count reference ranges are not reported, since discordance with absolute values may lead to misinterpretation of CBC data. Current Interpretive Data was last revised on 2017. Lymphocyte pct 16.7 % [facility] Comment: Interpretive Data Percent cell count reference ranges are not reported, since discordance with absolute values may lead to misinterpretation of CBC data. Current Interpretive Data was last revised on 2017. Monocyte pct 10.2 % [facility] Comment: Interpretive Data Percent cell count reference ranges are not reported, since discordance with absolute values may lead to misinterpretation of CBC data. Current Interpretive Data was last revised on 2017. Eosinophil pct 2.3 % [facility] Comment: Interpretive Data Percent cell count reference ranges are not reported, since discordance with absolute values may lead to misinterpretation of CBC data. Current Interpretive Data was last revised on 2017. Basophil pct 0.5 % [facility] Comment: Interpretive Data Percent cell count reference ranges are not reported, since discordance with absolute values may lead to misinterpretation of CBC data. Current Interpretive Data was last revised on 2017. Blood 10/30/2024 1:51 PM CDT 10/30/2024 8:32 PM CDT us Mary White SENIOR PRODUCT ANALYST LAB BLOOD ORDERABLES Final Re sult [facility] [address] Department [place] [address] * TB test, quantiferon gold (10/30/2024 1:51 PM CDT) Pathologist [facility] Quantiferon TB Gold [facility] Comment: QuantiFERON-Tb Gold Plus, B was cancelled on 11/01/2024 at 14:45; Specimen was improperly collected. Plasma appears to have been poured off and added to Garcia and T2 tubes. TB-Nil [facility] Comment: QuantiFERON-Tb Gold Plus, B was cancelled on 11/01/2024 at 14:45; Specimen was improperly collected. Plasma appears to have been poured off and added to Garcia and T2 tubes. TB2-Nil [facility] Comment: QuantiFERON-Tb Gold Plus, B was cancelled on 11/01/2024 at 14:45; Specimen was improperly collected. Plasma appears to have been poured off and added to Garcia and T2 tubes. Mitogen-Nil [facility] Comment: QuantiFERON-Tb Gold Plus, B was cancelled on 11/01/2024 at 14:45; Specimen was improperly collected. Plasma appears to have been poured off and added to Garcia and T2 tubes. NIL [facility] Comment: QuantiFERON-Tb Gold Plus, B was cancelled on 11/01/2024 at 14:45; Specimen was improperly collected. Plasma appears to have been poured off and added to Garcia and T2 tubes. Test Performed by: [address] [address] Power Digger Operator: Zeinab Newman Ph.D.; CLIA# [id number] Blood 10/30/2024 1:51 PM CDT 10/30/2024 10:42 PM CDT us Mary White SENIOR PRODUCT ANALYST LAB BLOOD ORDERABLES Final Re sult [facility] [address] [employer] [place], [place] [id number] [facility] * (ABNORMAL) CBC with auto differential (10/30/2024 1:51 PM CDT) WBC 6.18 3.80 - 9.90 K/cumm Hgb 9.2(L) 11.9 - 15.5 g/dL [facility] Hct 32.1(L) 35.6 - 45.5 % [facility] Plt 259 150 - 400 K/cumm [facility] MPV 11.2 9.1 - 12.3 fL [facility] RBC 3.75(L) 3.90 - 5.20 M/cumm [facility] MCV 85.6 81.3 - 96.4 fL [facility] MCH 24.5(L) 27.1 - 33.3 pg [facility] MCHC 28.7(L) 32.3 - 35.7 g/dL [facility] RDW CV 16.5(H) 11.1 - 14.9 % [facility] RDW SD 51.4(H) 35.7 - 48.1 fL [facility] NRBC abs 0.00 0.00 - 0.01 K/cumm [facility] Blood 10/30/2024 1:51 PM CDT 10/30/2024 8:32 PM CDT Mary White SENIOR PRODUCT ANALYST LAB BLOOD ORDERABLES Final Re sult [facility] [address] [place] [address] * (ABNORMAL) Erythrocyte sedimentation rate (10/30/2024 1:51 PM CDT) Erythrocyte sedimentation rate 45(H) 1 - 30 mm/hr Blood 10/30/2024 1:51 PM CDT 10/30/2024 8:32 PM CDT Mary White SENIOR PRODUCT ANALYST LAB BLOOD ORDERABLES Final Re sult Performing Organization Address [facility] Co de Phone Number [facility] [address] [facility] [place] [place] [address] * TSH (10/30/2024 1:51 PM CDT) Thyroid Stimulating Hormone 0.44 0.30 - 4.20 mcIUnit/mL Blood 10/30/2024 1:51 PM CDT 10/30/2024 8:32 PM CDT Mary White SENIOR PRODUCT ANALYST LAB BLOOD ORDERABLES Final Re sult Performing Organization Address [facility] de Phone Number [facility] [address] [facility] [place] [place] [address] * Magnesium (10/30/2024 1:51 PM CDT) Magnesium 2.0 1.4 - 2.5 mg/dL Blood 10/30/2024 1:51 PM CDT 10/30/2024 8:32 PM CDT Mary White SENIOR PRODUCT ANALYST LAB BLOOD ORDERABLES Final Re sult Performing Organization Address [facility] de Phone Number [facility] [address] [facility] [address] [place], [place] [id number] * Creatine kinase (CK), total (10/30/2024 1:51 PM CDT) CK 58 30 - 200 Units/L Blood 10/30/2024 1:51 PM CDT 10/30/2024 8:32 PM CDT Mary White SENIOR PRODUCT ANALYST LAB BLOOD ORDERABLES Final Re sult Performing Organization Address [facility] Co de Phone Number [facility] [address] Department [place] [address] * (ABNORMAL) Comprehensive metabolic panel (10/30/2024 1:51 PM CDT) Sodium 145 135 - 145 mmol/L Potassium, pl 4.0 3.3 - 4.9 mmol/L [facility] Chloride 111(H) 97 - 110 mmol/L [facility] CO2 21(L) 22 - 32 mmol/L [facility] Anion gap 13 2 - 15 mmol/L [facility] BUN 20 6 - 25 mg/dL [facility] Creatinine 0.67 0.60 - 1.10 mg/dL [facility] Glucose 90 70 - 199 mg/dL [facility] Comment: Interpretive Data Fasting glucose >/= 126 [...] classification and Diagnosis of Diabetes Diabetes Care 202; 46: S19-S40. Current interpretive data was last revised 2022. Calcium 9.0 8.5 - 10.3 mg/dL [facility] Bilirubin, total <0.2 0.1 - 1.2 mg/dL [facility] Protein, pl 6.3(L) 6.5 - 8.5 g/dL [facility] Albumin 3.5 3.5 - 5.0 g/dL [facility] Alk phos 56 40 - 130 Units/L [facility] ALT 17 7 - 45 Units/L [facility] AST 15 10 - 45 Units/L [facility] Blood 10/30/2024 1:51 PM CDT 10/30/2024 8:32 PM CDT us Mary White SENIOR PRODUCT ANALYST LAB BLOOD ORDERABLES Final Re sult [facility] [address] Department [place] [address] * COLONOSCOPY (04/12/2020 8:43 AM FUR REPAIR INSPECTOR) Anatomical Region Laterality Modality Other Narrative Procedure Note Jeniffer Almaraz MD - 04/12/2020 8:[address] [facility] Endoscopy Lab Patient Name: Alisha Arguello [...] 3 weeks. Procedure Code(s): --- Professional --- 29826, Colonoscopy, flexible; diagnostic, including collection of specimen(s) by brushing or washing,when performed (separate procedure) Diagnosis Code(s): --- Professional --- Z12.11, Encounter for screening for malignantneoplasm of colon K57.30, Diverticulosis of large intestine without perforation or abscess without bleeding CPT copyright 2019 [employer]. All rights reserved. The codes documented in this report are preliminary and upon surgical coder reviewmay be revised to meet current compliance requirements. Naida Almaraz Jeniffer Almaraz M.D. 04/12/2020 9:44:11 AM This report has been electronically signed by the physician. Number of Addenda: 0 Note Initiated On: 04/12/2020 8:43 AM Jeniffer Almaraz MD ENDOSCOPY PROCEDURES Final Result * Dexa Axial Skeleton Bone Density 1 or 2 Site (04/05/2020 10:47 AM FUR REPAIR INSPECTOR) Anatomical Region Laterality Modality Body N/A Other 04/05/2020 10:5 8 AM FUR REPAIR INSPECTOR Impressions 04/05/2020 10:59 AM FUR REPAIR INSPECTOR According to the World Health Organization criteria, [...] signed by: Marika Huerta 04/05/2020 10:59 AM FUR REPAIR INSPECTOR COMPLETION DATE: 04/05/2020 11:00 AM ORDERING HEALTHCARE PROVIDER: TERRELL LAY DESCRIPTION: DEXA AXIAL SKELETON BONE DENSITY 1 OR MORE SITES CLINICAL INDICATIONS: Z13.820. COMPARISON: None TECHNIQUE: Dual x-ray absorptiometry (DEXA) was performed using [employer] system. GENERAL GUIDELINES: According to WHO guidelines, [...] Dual x-ray absorptiometry (DEXA) was performed using [employer] Solars[employer] system. GENERAL GUIDELINES: According to WHO guidelines, [...] Mammogram Bilateral W Cristobal (04/24/2019 11:01 AM FUR REPAIR INSPECTOR) Anatomical Region Laterality Modality Breast Bilateral Mammography Narrative 04/25/2019 2:48 PM FUR REPAIR INSPECTOR Mammogram Technique: Bilateral Digital Breast Tomosynthesis, Bilateral C-view 2D Screening mammogram. Views obtained: bilateral craniocaudal and bilateral mediolateral oblique. Computer Aided Detection was performed. Mammogram Findings: The present examination has been compared to prior imaging studies performed at [facility] on 11/21/2014, 11/27/2015 and 12/09/2016. There are [...] compared to prior imaging studies performed at [facility] on 11/21/2014, 11/27/2015 and 12/09/2016. There are scattered areas of fibroglandular density. There is no suspicious abnormality in either breast. Impression: Annual screening mammography is recommended. OVERALL FINAL ASSESSMENT: BI-RADS CATEGORY 1: Negative. Self Screening Mammogram IMG MAMMO PROCEDURES Fi nal Result from Last 3 Months or Most Recently Relevant to Health Maintenance Insurance [facility] T MEDICARE [facility] MEDICARE Advance Directives For more information, please contact: [phone] * Full Code (Latest Code Status on File) Date Activated Date Inactivated Comments 04/12/2020 8:25 AM 04/12/2020 4:12 PM Care Teams Clinical Safety Specialist Relationship Specialty Start Date End Date Herve Wilson MD [facility] [place] [address] PCP - General Family Medicine 10/08/23 Cy Mckinnon DO [address] [place] [id number] Medical Oncologist/Rn Mental Health Hematology and Oncology 10/05/17
--- OUTSIDE RECORDS SUMMARY | 2025-01-24 03:22 | XMS_ITS | Encounter Summary ---
Author Organization [employer] Address [address] [facility] Attn: Epic Prelude ADT [place] [address] Care Team Providers Care Finish Specialist Name Role Phone Unavailable Primary Care Provider [...] on file Legal Sex Female 4:37 AM DIRECTOR STRATEGY Gender Identity Not on file Sexual Orientation Not on file documented as of this encounter Plan of Treatment Not on file documented as of this encounter Visit Diagnoses Not on filedocumented in this encounter
--- OUTSIDE RECORDS SUMMARY | 2025-01-24 03:23 | XMS_ITS | Data Portability ---
Author Organization [place] [facility], Main Office Address [address] [place] [address] Assessment Encounter Date Assessment Date Assessment LastModified [...] Nicotine cessation counseling provided for 4 minutes. [place] for quitting nicotine include getting ready, getting [...] in Quit For Life program Registering at [email or web address] Making a call to 6-852-LEBM-NOW ( ). A strong, clear, personalized message [...] failure or relapse. Patient can enroll in [facility]'s smoking cessation class through Geraldine Escobedo RN at . Enrollment is free and classes are held every wednesday of the month from 1:30 pm to 2:30 pm at the conference room next to the cafeteria on the ground floor. The [employer] recommends annual screening for lung cancer with low-dose computed tomography (LDCT) for people aged 50 to 80 years old who smoke or formerly smoked and have a 20-year or greater pack-year history. Screening is no longer discontinued even when a person has not smoked for 15 years. LDCT scan ordered. Cough/Dyspnea workup will be done as follows: [facility]piratory [facility] Serum IgE Serum total IgG, IgG1, IgG2, IgG3, IgG4 Cphdh-0-ipmxnsrpld n phenotype and level TB stimulated gamma [...] CPAP for JANET. Nicotine cessation counseling provided. [place] for quitting nicotine include getting ready, getting [...] in Quit For Life program Registering at [email or web address] Making a call to 4-224-XRTD-NOW ( ). A strong, clear, personalized message [...] failure or relapse. Patient can enroll in [facility]'s smoking cessation class through Geraldine Escobedo RN at . Enrollment is free and classes are held every wednesday of the month from 1:30 pm to 2:30 pm at the conference room next to the cafeteria on the ground floor. The [employer] recommends annual screening for lung [...] (aat) phenotype, serum 2023 024 [email or web address] 25 [facility] (Lab), [address] [place], [address], 4 10:54:35 BNP (B-type natriuretic peptide), serum or plasma 2023 024 CHRIS [facility] (Lab), [address] [place], [address], 4 14:15:37 ige, total, serum 2023 024 [email or web address] 25 [facility] (Lab), [address] [place], [address], 4 10:54:35 tb (M tuberculosi s), ifn-gamma ne, blood 2023 024 [email or web address] 25 [facility] (Lab), [address] [place], [address], 4 10:54:35 eosinophil count, manual, blood (OBS) 2023 024 [email or web address] 25 [facility] (Lab), [address] [place], [address], 4 10:54:35 igg subclasses 1+2+3+4, serum 2023 024 [email or web address] 25 [facility] (Lab), [address] [place], [address], 4 10:54:35 [facility] allergen panel - [facility] a 2023 024 [email or web address] 25 [facility] (Lab), [address] [place], [address], 4 10:54:35 respiratory allergen panel [facility] b 2023 024 [email or web address] 25 [facility] (Lab), [address] [place], [address], 4 10:54:35 Referral None recorded. Procedures None recorded. Surgeries None recorded. Imaging LDCT, chest, for lung cancer screening 2023 025 [facility] (One Call Scheduling), [address] [place], [address], 5 15:35:54 LDCT, chest, for lung cancer screening - Nicotine smoke: 1 ppd 1970-presen t (quit 20 years in between) = 33 pack years; no auth required 2023 024 [facility] (One Call Scheduling), [address] [place], [address], 4 11:40:22 Medication Orders albuterol sulfate HFA 90 mcg/actuati on aerosol inhaler 2023 [facility]/Pharmacy #[id number], [address], [place], [address], 4 12:55:46 Trelegy Ellipta 100 mcg-62.5 mcg-25 mcg powder for inhalation 2023 024 [facility]/Pharmacy #[id number], [address], [place], [address], 4 12:55:46 Patient TargetsNo targets recorded. Patient Instructions Encounter Date Encounter Id Patient Instructions Last Modified By Organization Details Last Modified Time 04/08/2023 [id number] methacholine challenge* CHRIS Not available 06/11/2023 12:37:59 06/10/2023 [id number] complete PFT w/ post bronchodilator spirometry* [email or web address] Not available 05/17/2024 15:34:56 Reason for Referral None Reported. Results Created Date Observation Date Name Description Value Unit Range Abnormal Flag Note LastModifiedBy Organization Detail LastModifiedTime 04/13/19 24 04/19/2016 polys omnog radha, split night No observ ation record ed. BARCODE Not Available 2023 14:28:14 04/13/19 24 02/16/2017 compl ete PFT w/ post [facility] hodil ator zev metry * No observ ation record ed. BARCODE Not Available 2023 14:28:15 04/16/19 24 04/16/2023 LDCT, chest , for lung yanelis pierce No observ ation record ed. [email or web address] [facility] [address] [place], [address], 04/16/2023 14:57:37 06/11/19 24 06/10/2023 metha choli ne chall enge* No observ ation record ed. [facility] (One Call Scheduling) [address] [place], [address], 06/11/2023 12:37:59 Result Notes None recorded. Problems Name Problem SNOMED Code Status Onset Date Resolution Date Notes Provider Name and Address Organization Details Recorded Time Bipolar disorder 16453158 Active Not Available [facility] 3 07:30:17 Gastroeso phageal reflux disease 960177338 Active Not Available [facility] 3 07:30:17 Restless legs syndrome 42975777 Active Not Available [facility] 3 07:30:17 Depressiv e disorder 74100118 Active Not Available [facility] 3 07:30:17 Arthritis 5637850 Active Not Available [facility] 3 07:30:18 Hypoxemia 255377007 Active nocturnal Not Available [facility] 3 07:30:18 Hypothyro idism 65713827 Active Not Available [facility] 3 07:30:18 Obesity 563372338 Active Not Available [facility] 3 07:30:18 Obstructi ve sleep apnea syndrome 63786900 Active Not Available [facility] 3 07:30:18 Body mass index 40+ - severely obese 819403195 Active 2016 Not Available [facility] 3 07:30:18 Smoker 35160057 Active 2023 Eduardo Wilson MD [address], [place], [address] , [facility] [employer] [facility] 4 11:05:46 Moderate persisten t asthma 783725171 Active 2023 Eduardo Wilson MD [address], [place], [address] , [facility] 4 12:44:55 Notes:Medical History: Bipol ar depression [...] cervical discectomy fusion (ACDF) 1996 Esophageal dilatations 1611-5883 Left knee replacement 2005 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 Medical Equipment None Reported. Allergies Allergen ID Allergen Name Allergen Category Reaction Reaction Severity Criticality Documentation Date Start Date Code Code System Note Provider Name and Address Organization Details Recorded Time 37308 Singulair medicatio n Not available Not available Not available 05/06/2022 45287 9 RxNorm Not Available [facility] 3 07:36:29 Medications Name Sig Start Date [...] /min 15 /min Eduardo Wilson MD [address] [place] [facility] [address], [address], [facility] 04/08/2023 10:47:04 Date Recorded Body height Body mass index (BMI) Body weight Body temperature Oxygen saturation Oxygen saturation in Arterial blood by Pulse oximetry Systolic And Diastolic Provider Name and Address Organization Details Last Updated DateTime 157.48 cm 49.1 kg/m2 303421. 47 g 98.1 [degF] 95 % 95 % 144/70 mm[Hg] Joan Anguiano MA [facility] 10:25:44 Date Recorded Oxygen saturation Oxygen saturation in Arterial blood by Pulse oximetry Heart rate Respiratory rate Provider Name and Address Organization Details Last Updated DateTime 06/10/2023 95 % 95 % 65 /min 14 /min Eduardo Wilson MD [address], [place], [address], [facility] 4 12:52:41 Date Recorded Body height Body mass index (BMI) Body weight Body temperature Heart rate Systolic And Diastolic Provider Name and Address Organization Details Last Updated DateTime 157.48 cm 48.5 kg/m2 237141. 7 g 97.7 [degF] 65 /min 128/66 mm[Hg] Joan Anguiano MA [facility] 4 12:38:12 Social History Question Answer Notes LastModified by Organizat ion Details LastModified Time Tobacco Smoking Status Current Every Day Smoker Joan Anguiano MA null, [facility] 04/08/2023 10:32:14 What Is Your Level Of [...] available 04/08/2023 What is your occupation? disabled [id number] Information not available 05/06/2022 What is your exercise level? None Information not available 04/08/2023 Mental Status Question Answer Note LastModified by Organization D etails LastModified Time Do you feel stressed (tense, restless, nervous, or anxious, or unable to sleep at night)? SG7537-9 Information not available 04/08/2023 Family History Relationship [...] virus, quadrivalent, preservative 7 completed Not Available [facility] 05/06/2022 07:36:24 influenza, unspecified formulation 7 completed Not Available [facility] 05/06/2022 07:36:24 influenza, unspecified formulation 6 completed Not Available [facility] 05/06/2022 07:36:25 Past Encounters Encounter ID Performer Location Encounter Start Date Encounter Closed Date Diagnosis/Indication Diagnosis SNOMED-CT Code Diagnosis ICD10 Code Diagnosis IMO Codes Diagnosis Note [id number] Eduardo Wilson MD [facility] [place] [address] 04/08/2023 09:55:11 04/08/2023 15:37:34 Dyspnea on exertion 71812158 R06.09 R05.3 T78.40XA D89.9 Smoker 76840650 F17.218 F17.219 Z87.258 [id number] Eduardo Wilson MD [facility] [address] 06/10/2023 12:27:59 06/11/2023 08:56:05 Smoker 75249828 F17.218 F17.219 Z87.891 Moderate p ersistent asthma 113055603 J45.40 Health Concerns Section Related Observation LastModified by Organization Detai ls LastModified Time None Recorded Concern Status LastModified by Organization Details LastModified Time None Recorded Advance Directives Directive None Recorded Payers Insurance Date Sequence Insurance Name Policy Number Policy Church Covered Member ID Church Member ID Guarantor Name 06/16/2024 1 [facility] (MEDICARE REPLACEMENT HMO) [id number] Alisha Arguello [id number] Alisha Floyd Jos 06/19/2024 1 [facility] (MEDICARE REPLACEMENT/A DVANTAGE - PPO) [id number] Alisha Arguello [id number] Alisha Arguello Notes Date Note Type Note [...] stairs Alleviating factors: rest Modified [facility] ([facility]) Dyspnea Scale - Grade 2 Grade [...] years in between) = 33 pack years [place]: no Dye: no Dust mites: yes Mold: no Damp basement: no Wood burning stove: no Animal dander: 3 dogs Cockroaches: no Pollen: yes Arsenic: no Asbestos: no Beryllium: no Cadmium: no Chromium: no [place] smoke: no Diesel fumes: no Nickel: no [...] moderate chance of dozing. Eduardo Wilson MD [address] [place] [address], [address], [place] [facility] [employer] [facility] 04/08/2023 11:14:40 06/10/2023 text/html Primary [...] up stairsAlleviating factors: rest Modified [facility] ([facility]) Dyspnea Scale - Grade 2Grade 0 [...] slight chance of dozing. Eduardo Wilson MD [address] [place] [address] [place] [address], [place], [address], [facility] 06/10/2023 13:04:23 OBGyn Episode No OBEpisode recorded.
--- OUTSIDE RECORDS SUMMARY | 2025-01-24 03:23 | XMS_ITS | Clinical Summary ---
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
--- OUTSIDE RECORDS SUMMARY | 2025-01-24 03:24 | XMS_ITS | Clinical Summary ---
Author Organization [facility] Address [address] [place] [address] Care Team Providers Care Classification Clerk Name Role Phone Unavailable Primary Care Provider [...] 08/18/2020 Dexa Scan (General) 08/18/2020 PHQ-2 (Physician [place]) 03/08/2024 COVID-19 Vaccine (1 - 2024-2 6 season) 2024 Influenza Adult (#1) 2024 01/17/2017, 12/05/2013, 01/11/2013 RSV Immunization or 60+ Years (1 - 1-dose 75+ series) 08/18/2030 Hepatitis A Vaccines Aged Out No long er eligible based on patient's age to complete this topic Meningococcal B Vaccine Aged Out No l onger eligible based on patient's age to complete this topic Meningococcal Vaccine Aged Out No marci randy eligible based on patient's age to complete this topic RSV Immunizations Under 20 Months Aged Out No longer eligible b ased on patient's age to complete this topic Insurance MEDICARE
--- OUTSIDE RECORDS SUMMARY | 2025-01-24 03:26 | XMS_ITS | Patient Health Record ---
Author Organization [facility] , Address [address] [place] [address] Care Team Providers Care Auto Glass Installer Name Role Phone Herve Wilosn Primary Care Provider Herve Dominguez Unavailable [phone] Candi Wing Unavailable [phone] ALLERGIES No Known Allergies RESULTS Component Value [...] (M54.50) Active confirmed Low back pain (finding) (248803582) Problem Neck ache (M54.2) Active confirmed Neck ache (32269139) Problem Myelopathy (G95.9) Active confirmed Myelopathy (61836161) Problem Cervical pain (M54.2) Active confirmed Cervical pain (83555109) Problem Cervical radiculitis (M54.12) Active confirmed Cervical radiculitis (41037381) Problem Lumbar radiculitis (M54.16) Active confirmed Lumbar radiculitis (06713955079114 104) VITAL SIGNS Height 63 in 10/25/2024 Weight 234 lbs 10/25/2024 BMI 41.45 kg/m2 10/25/2024 Encounters Encounter Location Date Provider Diagnosis [facility] [address] [address] 10/25/2024 Candi Wing Cervical pain M54.2 ; Cervical radiculitis M54.12 ; Other low back pain M54.59 and Lumbar radiculitis M54.16 [facility] [address] [address] 01/02/2025 Herve Cotton [facility] [address] [address] 01/22/2025 Candi Wing [facility] [address] [address] 10/26/2024 Herve Cotton [facility] [address] [address] 10/26/2024 Herve Cotton Myelopathy G95.9 [facility] [address] [place] [address] 11/24/2024 Herve Cotton [facility] [address] [place] [address] 12/11/2024 Herve Cotton [facility] [address] [place] [address] 12/18/2024 Herve Cotton [facility] [address] [place] [address] 12/18/2024 Herve Cotton [facility] [address] [place] [address] 12/19/2024 Herve Cotton [facility] [address] [place] [address] 12/22/2024 Herve Cotton ASSESSMENTS Encounter Date Diagnosis [...] (Dictated but not read. Signed electronically by traveling secretary to expedite) LV/sunny 10/26/2024 Myelopathy (ICD-10 - G95.9) 10/25/2024 Cervical [...] (Dictated but not read. Signed electronically by traveling secretary to expedite) /sunny 10/25/2024 Other low back pain (ICD-10 - [...] (Dictated but not read. Signed electronically by traveling secretary to expedite) BERNY/sunny 10/25/2024 Lumbar radiculitis (ICD-10 - M54.16) &nbsp [...] (Dictated but not read. Signed electronically by traveling secretary to expedite) LV/mkd PLAN OF TREATMENT No Information Insurance Providers Payer Name Payer Address Payer Phone Subscriber Number Group Number Insured Name Patient Relationship to Insured Coverage Start Date Coverage End Date Medicare [place] [address] [address] [place] [address] [id number] Jos Alisha Self - patient is the insured MEDICAL (GENERAL) HISTORY Medical History History ICD Code Hypertension Asthma/COPD Heart Disease Surgical History Surgery Date(Month/Year) Cervical Fusion Hospitalization History Reason Date(Month/Year) As per above.
--- OUTSIDE RECORDS SUMMARY | 2025-01-24 03:26 | XMS_ITS | Patient Health Record ---
Author Organization [facility] [facility] Address [address] [place] [address] Care Team Providers Care Pump Station Operator Name Role Phone Herve Wilson MD Primary Care Provider Ernestina Villasenor Unavailable [phone] Allergies Allergen (clinical drug ingredient) Drug/Non Drug [...] Powder Breath Activated Inhalation *Pick strength-form from [facility] [...] decision-maker Yes Do you have Power of Primary Care Provider for Health or Medi dejah? Yes Do you have a power of research attorney for health? Yes Do you have power of research attorney for Medical ? Yes If yes, then [...] Status Risk Notes Problem Bipolar II disorder (57275151) Bipolar II disorder (F31.81) Active confirmed Problem Restless legs syndrome (37316188) Restless legs syndrome (G25.81) Active confirmed Vital Signs Heart Rate 49 /min 05/12/2024 Height-cm 160.02 cm 05/12/2024 Blood pressure diastolic 78 mm Hg 05/12/2024 Weight-kg 117.94 kg 05/12/2024 Height 63.00 in 05/12/2024 Blood pressure systolic 143 mm Hg 05/12/2024 Weight 260 lbs 05/12/2024 BMI 46.05 kg/m2 05/12/2024 Encounters Encounter Location Date Provider Diagnosis [facility] [address] [address] 02/11/2024 Ernestina Viera Bipolar II disorder F31.81 ; Restless legs syndrome G25.81 and Other group home (current) drug therapy Z79.899 [facility] [address] [facility] [address] [place] [address] 05/12/2024 Ernestina Viera Bipolar II disorder F31.81 ; Restless legs syndrome G25.81 and Other long line teamster (current) drug therapy Z79.[address] [facility] [address] [place] [address] 09/26/2024 Ernestina Viera Bipolar II disorder F31.81 [...] ropinirole LABS ORDERED TODAY 02/11/2024 Other long line teamster (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 bipolar 2 disorder stable; reporting seasonal depression, declines medication adjustment -cont duloxetine 60mg qd -cont wellbutrin 200mg bid -cont topamax 100mg TID -cont citalopram 20mg daily -cont risperidone 1mg qd ---consider medication decrease after winter season to eliminate polypharmacy as able 2. RLS stable -cont ropinirole LABS ORDERED TODAY 05/12/2024 Other long line teamster (current) drug therapy (ICD-10 - Z79.899) LABS [...] PANEL, STANDARD (7600) 02/11/2024 COMPREHENSIVE METABOLIC PANEL (73667) CBC (H/H, RBC, INDICES, WBC, PLT) (1759) 02/11/2024 HEMOGLOBIN A1c (496) 02/11/2024 VITAMIN B12/FOLATE, SERUM PANEL (7065) 1 04/13/2023 VITAMIN D,25-OH,TOTAL,IA [phone] Insurance Providers Payer Name Payer Address Payer Phone Subscriber Number Group Number Insured Name Patient Relationship to Insured Coverage Start Date Coverage End Date [facility] Medicare Replacement/ Advantage - Ppo [address] [address] [place] [address] [id number] TISHA FLEMING Self - patient is the insured Medical (General) History Medical History History ICD Code Problems: Bipolar II disorder Restless legs , Surgical History Surgery Date(Month/Year) Any surgical history Tonsilectomy/adenoids 03/08/1974 Hysterectomy (13453) 03/08/1988
== END 2025-01-23 16:59 | disposition home or self-care (01) ==
LOC: ANHED 15:56
PROVIDERS: Emergency Provider Student in an Organized Health Care Education/Training Program
DX: J44.1 Chronic obstructive pulmonary disease with (acute) exacerbation (principal); T17.908A Unspecified foreign body in respiratory tract, part unspecified causing other injury, initial encounter; J18.9 Pneumonia, unspecified organism; R94.31 Abnormal electrocardiogram [ECG] [EKG]; I27.20 Pulmonary hypertension, unspecified; M06.9 Rheumatoid arthritis, unspecified; F41.9 Anxiety disorder, unspecified; F32.A Depression, unspecified; E78.5 Hyperlipidemia, unspecified; I10 Essential (primary) hypertension; E03.9 Hypothyroidism, unspecified
CPT/HCPCS: 36415; 71045; 80053; 83605; 85025; 93005; 99283; A9270; J7512